=== PATIENT | male | born 1940 | race Caucasian/White ===

== ENCOUNTER 2019-03-31 09:23 | Inpatient (IN) ==
--- NOTE | 2019-03-31 09:55 | XRay Report ---
XR chest 1V portable CLINICAL HISTORY: 79 years-old Male presenting with weakness. TECHNIQUE: Portable upright AP view of the chest was obtained. COMPARISON: 07/06/2018. FINDINGS: Atherosclerosis of the aortic arch. Cardiac silhouette normal in size. No focal opacity. No large eff usion or pneumothorax. Degenerative changes of the thoracic spine. Upper abdomen normal. IMPRESSION: 1. No acute cardiopulmonary disease. Electronically signed by: Naresh Bourne M.D. 03/31/2019 9:54 AM
[2019-03-31] MEDS ORDERED: LACTULOSE SYRUP 20 GM/30 ML UDC PO STA (09:58)
[2019-03-31 10:08] LABS: Basophils # (auto) 0.03 K/uL (0-0.2); Basophils % (auto) 0.6 %; Eosinophils # (auto) 0.13 K/uL (0-0.5); Eosinophils % (auto) 2.5 %; Hemoglobin 12.1 g/dL (14.0-18.0); Immature Granulocytes # (auto) 0.05 K/uL (0.00-0.02); Lymphocytes # (auto) 1.04 K/uL (1.2-3.4); Mean Corpuscular Hgb Conc 34.6 g/dL (32-36); Mean Corpuscular Volume 88.6 fL (80-100); Mean Platelet Volume 8.7 fL (7.4-10.4); Monocytes # (auto) 0.58 K/uL (0.11-0.59); Monocytes % (auto) 11.2 %; Neutrophils # (auto) 3.37 K/uL (1.4-6.5); Neutrophils % (auto) 64.7 %; Platelet Count 164 K/uL (130-400); RDW Coefficient of Variation 15.3 % (11.5-14.5); RDW Standard Deviation 49.5 fL (36.4-46.3); Red Blood Count 3.95 M/uL (4.7-6.1)
[2019-03-31 10:22] LABS: INR 1.1 (0.9-1.1); Prothrombin Time 11.4 Seconds (9.0-12.0)
[2019-03-31 10:24] LABS: Albumin Level 2.6 gm/dl (3.4-5.0); Aspartate Aminotransferase 47 U/L (15-37); BUN Creatinine Ratio 19.6 (10-20); Blood Urea Nitrogen 29 mg/dl (7-18); Calcium 9.1 mg/dl (8.5-10.1); Carbon Dioxide 19 mmol/L (21-32); Chloride 114 mmol/L (98-107); Est GFR (African American) 51.4; Est GFR (Non-African American) 44.3; Glucose 115 mg/dl (70-99); Magnesium 2.3 mg/dl (1.8-2.4); Potassium 4.6 mmol/L (3.5-5.1); Sodium 143 mmol/L (136-145)
[2019-03-31 10:35] LABS: Alanine Aminotransferase 50 U/L (12-78); Albumin Globulin Ratio 0.7 (0.9-2); Alkaline Phosphatase 87 U/L (45-117); Globulin 3.5 gm/dl (2.5-4.0); Total Protein 6.1 gm/dl (6.4-8.2); Troponin I < 0.015 ng/ml (0-0.045)
--- NOTE | 2019-03-31 10:57 | CT Scan Report ---
HEAD CT NONCONTRAST CT DOSE: 537.48 mGy.cm HISTORY: confusion TECHNIQUE: Multiaxial CT images of the head were performed without the use of intravenous contrast. A utomated exposure control was utilized for this study. A dose lowering technique was utilized adheri ng to the principles of ALARA. Comparison: None. Findings: Opacified left ethmoid air cells. No fluid levels within the paranasal sinuses. The mastoid air cells are clear. The calvarium and skull base are intact. There is no mass, hematoma, midline sh ift, acute infarct. White matter hypodensity is nonspecific but suggestive of microvascular ischemic change. The ventricles and sulci demonstrate mild age-related involutional changes. Impression: No acute intracranial abnormality. Atrophy and microvascular ischemic changes. Electronically signed by: Nacho Goss M.D. 03/31/2019 10:55 AM
--- NOTE | 2019-03-31 12:27 | Ultrasound Report ---
US duplex portal hepatic veins CLINICAL HISTORY: eval TIPS. Ascites. Cirrhosis. COMPARISON STUDY: Abdomen and pelvis CT 06/25/2018. FINDINGS: The visualized portal and hepatic veins appear patent. The TIPS is also patent and demonstr ates normal velocities measuring up to 141 cm/s. The IVC appears patent. Moderate ascites. IMPRESSION: The portal veins, hepatic veins, and TIPS appear patent. Electronically signed by: Nacho Goss M.D. 03/31/2019 12:26 PM
--- NOTE | 2019-03-31 12:28 | Ultrasound Report ---
US abdomen ltd ascites CLINICAL HISTORY: h/o cirrhosis. Abdominal distention. COMPARISON STUDY: Paracentesis ultrasound 03/07/2019. FINDINGS: Moderate ascites most pronounced within the right lower quadrant. This demonstrates a few i nternal echoes, unchanged. This appears of slightly improved compared to the prior study on 03/07/2019 . IMPRESSION: Moderate ascites. Electronically signed by: Nacho Goss M.D. 03/31/2019 12:27 PM
--- NOTE | 2019-03-31 13:33 | History & Physical Report ---
Date of Service March 31, 2019 Assessment & Plan (1) Confusion: (2) Hepatic encephalopathy: Pt presented to ER for increased confusion since yesterday. On lactulose daily for cirrhosis. Recent TIPS procedure. Reports was having constipation. In ER afebrile, P: 77, R: 20, BP: 124/50, 100% on RA. No leukocytosis, ammonia: 65, no significant changes in LFTs In ER given lactulose CT HEAD: no acute changes -obtain UA, urine culture, blood cultures -neuro checks -increase lactulose to TID to have 2-3 loose stools daily -add rifaximin -GI consult -monitor cbc, cmp (3) Cirrhosis: (4) Ascites: H/O TIPS procedure on 03/16/19 INR: 1.1, ammonia: 65, no significant changes in LFTs US Abd: moderate ascites US Portal vein:The portal veins, hepatic veins, and TIPS appear patent. -continue lasix, spironolactone -lactulose increased to TID, rifaximin added -GI consult (5) Paroxysmal A-fib: Current sinus rhythm Has been off apixaban, pt was unsure when he was to resume it (6) Diabetes mellitus, type II: A1c: 5.9 on 01/2019 -Hold metformin -NovoLog sliding scale per protocol (7) HTN (hypertension): Stable -Continue Lasix, spironolactone (8) Sleep apnea: -Not on CPAP (9) GERD (gastroesophageal reflux disease): -Continue PPI, H2 clau (10) CKD (chronic kidney disease), stage III: Cr: 1.49. Baseline Cr: 1.2 -Monitor renal functions -Avoid nephrotoxic agents and possible DVT Prophylaxis -SCDs Full Code as per discussion with pt, pt's and pt's daughter, however would not prolonged on life support if poor prognosis Follows with Dr Das for routine care Pt was seen with Dr Diaz. 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 Patient presents with granddaughter and she provides most of history secondary to patient's confusion. Reports yesterday noticed patient with increased confusion, inappropriate answers to questions and was having delayed responses. Granddaughter reports patient had significant abdominal distention prior to TIPS procedure on 03/16/2019 at [facility]. Patient denies noting any increased abdominal distention over the past couple days. Denies abdominal pain. Reports patient had BM this morning otherwise had been constipated. Unsure if patient has been eating and drinking well. Patient's granddaughter reports she does not believe patient has had much of an appetite. Patient lives at home with who just recently returned from rehab facility. It is believed that patient had his morning medicines today. Patient followed up with GI on 03/23/2019 and Lasix was decreased to 20 mg daily, spironolactone to 50 mg daily and lactulose to 30 g daily. Patient was previously on Eliquis, patient has not been taking as was on hold and unsure how long he was to hold the medication. Patient started radiation last week for squamous cell carcinoma to the neck. Denies fever/chills, diaphoresis, N/V, TOLENTINO, dizziness, syncope, vision changes, neck pain, CP, SOB, orthopnea, palpitations, cough, sore throat, choking, otalgia, rhinorrhea, paresthesias, extremity edema, extremity weakness, rashes, urinary symptoms, hematuria, melena, hematochezia. History EGD 03/2018 no varices Allergies Allergy/AdvReac Type Severity Reaction Status Date / Time No Known Allergies Allergy Verified 03/31/19 10:17 Home Medications Home Medications Medication Instructions Recorded Confirmed Type apixaban [Eliquis] 5 mg PO BID 12/21/18 03/31/19 History metformin 500 mg PO DAILY 12/21/18 03/31/19 History [id number] acid-lutein [Centrum 1 tab PO DAILY 12/21/18 03/31/19 History Silver] omeprazole magnesium [Prilosec OTC] 20 mg PO BID 12/21/18 03/31/19 History ranitidine HCl 150 mg PO BID PRN 12/21/18 03/31/19 History spironolactone 50 mg PO QAM 12/21/18 03/31/19 History tamsulosin [Flomax] 0.4 mg PO QAM 12/21/18 03/31/19 History fluticasone propionate [Flonase 1 spray INTRANASAL BID 01/07/19 03/31/19 History Allergy Relief] loratadine 10 mg PO DAILY PRN 01/07/19 03/31/19 History sildenafil [Viagra] 100 mg PO DAILY PRN 01/07/19 03/31/19 History polyethylene glycol 3350 [Miralax] 17 g PO BID 01/27/19 03/31/19 History artificial tears (hypromellose) 1 drops OP QID PRN 02/17/19 03/31/19 History 0.3 % eye gel cholecalciferol (vitamin D3) 2,000 1,000 units PO DAILY tab 02/17/19 03/31/19 History unit tablet furosemide 20 mg tablet 20 mg PO DAILY tab 02/17/19 03/31/19 History ketoconazole 2 % topical cream 1 appln TOP DAILY 02/17/19 03/31/19 History sodium chloride 0.65 % nasal spray 2 sprays INTNAS QID PRN 02/17/19 03/31/19 History aerosol lactulose 30 g PO DAILY 03/31/19 03/31/19 History Past Med/Surg History Medical History Paroxysmal A-fib (Chronic) Sleep apnea (Chronic) NO DEVICE USED Depression (Chronic) History of abdominal paracentesis (Resolved) 02/08/19, 11/2018 Cirrhosis (Chronic) Ascites (Chronic) 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 Elevated LFTs suspected to be from DILI vs AIH. LFTs normalized now so immunosuppression use was deferred. 4L fluid drained 12/15. Abdomen noticeably distended at PAT appt on 12/31/18. Diabetes mellitus, type II (Chronic) HTN (hypertension) (Chronic) No current meds - currently controlled HLD (hyperlipidemia) (Chronic) PVCs (premature ventricular contractions) (Chronic) BPH (benign prostatic hyperplasia) (Chronic) GERD (gastroesophageal reflux disease) (Chronic) Spontaneous bacterial peritonitis (Resolved) Jun 2018. Pt was admitted for a fib RVR and ascites, fluid drawn from abdomen showed SBP. Treated with ABX and discharged. Following now with Meaghan BORJA ([facility]) and Dr. Monreal (Hepatology). Surgical History History of eye surgery (Chronic) 2008 - TEAR DUCT OPENED UP History of adenoidectomy (Chronic) 01/11/19 History of cataract surgery (Chronic) RT/LEFT History of tonsillectomy (Chronic) 01/11/19 History of tooth extraction (Chronic) 01/11/19 History of colonoscopy (Chronic) 01/30/16 History of esophagogastroduodenoscopy (EGD) (Chronic) 11/07/2010, 06/23/18 - with endoscopic US History of liver biopsy (Chronic) 05/2018 History of laryngoscopy (Chronic) 01/11/19 - with biopsies + right modified radical cervical lymphadenectomy History of ERCP (Chronic) 05/12/18 - stent removed History of intraocular lens implant (Chronic) 2008 - Bilateral History of hernia repair (Chronic) 04/02/18 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 Yan 2, grade 1 view. 8.0 ETT. Family History Mother , Passed age 49 from Leukemia No problems noted. Sister , Passed age 6 months of pneumonia No problems noted. Brother , Passed in late 50's of MS No problems noted. Sister , Passed in 60's of diabetic complications No problems noted. Sister No problems noted. Daughter Breast cancer, Onset Age: 40 Stage III - Currently doing well Brother No problems noted. Brother No problems noted. 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 Other Information That Helps Us Care for You: No Feels Safe at Home: Yes Safety Concerns: Feels Safe At This Time Smoking Status: Former smoker Tobacco Type: smokeless tobacco packs per day: 0.5 Do You Dip or Chew Tobacco: Yes Second Hand Exposure: No Tobacco Cessation Education Requested by Patient: No Hx Alcohol Use: No Hx Substance Use: No caffeine: Yes (3 cups of coffee/week with tea inbetween ) during the past year weight has: decreased > 10 lbs Review of Systems Review of Systems: All systems reviewed & are unremarkable except as noted in HPI & below Physical Exam Physical Exam: General: no distress, thin, chronic ill appearing Head: normocephalic, atraumatic Eyes: PERRL, EOM's intact, conjunctiva non-injected, anicteric ENT: normal inspection external ears, nose, mucous membranes mildly dry Neck: supple, trachea midline Lungs: clear, no respiratory distress, no wheezing/rhonchi/rales CV: RRR, no murmur, no pretibial edema Abd: normal BS, soft, +umbilical hernia that is non-tender, non-tender Ext: no cyanosis, no calf tenderness Neuro: Alert, oriented to person, place, no focal deficits noted, normal affect Skin: warm, dry Results & Data Vital Signs (Past 12 Hours) Vital Signs Temp Pulse Pulse Resp BP BP Pulse Ox 03/31/19 11:10 78 18 111/69 97 03/31/19 09:26 36.7 C 77 20 124/50 L 100 Laboratory Results Short CBC 03/31/19 Range/Units 09:49 WBC 5.20 (4.8-10.8) K/uL Hgb 12.1 L (14.0-18.0) g/dL Hct 35.0 L (42-52) % Plt Count 164 (130-400) K/uL BMP 03/31/19 09:49 Sodium 143 Potassium 4.6 Chloride 114 H Carbon Dioxide 19 L BUN 29 H Creatinine 1.49 H Glucose 115 H Calcium 9.1 Cardiac Enzymes 03/31/19 Range/Units 09:49 Troponin I < 0.015 (0-0.045) ng/ml Liver Function 03/31/19 Range/Units 09:49 Total Bilirubin 1.0 (0.2-1) mg/dl AST 47 H (15-37) U/L ALT 50 (12-78) U/L Alkaline Phosphatase 87 (45-117) U/L Albumin 2.6 L (3.4-5.0) gm/dl Diagnostic Findings CXR: IMPRESSION: 1. No acute cardiopulmonary disease. CT HEAD: Impression: No acute intracranial abnormality. Atrophy and microvascular ischemic changes. ABD U/S: IMPRESSION: Moderate ascites. PORTAL VEIN US: IMPRESSION: The portal veins, hepatic veins, and TIPS appear patent. Supervising Physician Co-Signing Physician Notes Patient is a 73-year-old male with history of cirrhosis status post TIPS in March 2019, metastatic squamous cell carcinoma of neck, paroxysmal A. fib and other medical problems presents with history of confusion. Most of the history is obtained from patient's granddaughter. Patient is a poor historian. Patient's lactulose was decreased to [address] head showed no acute findings. Chest x-ray was not suggestive of any acute infection. Portable ultrasound showed patency of the portal veins, hepatic veins and TIPS. Abdominal ultrasound showed moderate ascites. Patient denies any abdominal pain. Labs showed elevated ammonia levels at 65, mild metabolic acidosis. Normal TSH. On exam patient is chronically ill-appearing, normocephalic atraumatic,+ hearing aids, lungs are clear to auscultation, S1-S2, no murmur, abdomen distended, n ontender,+ umbilical hernia, soft, bowel sounds present. Grossly no focal deficits, 1-2+ bilateral lower extremity edema. Patient is admitted for management of hepatic encephalopathy, ascites. Patient's lactulose is increased to TID, added rifaximin. GI consulted for further input. MiraLAX as needed noted. Blood, urine cultures were obtained to rule out infection. Started on low-salt diet. Further management based on GI recommendations. I personally reviewed the record. Patient is interviewed and examined at bedside. Patient's care is coordinated with Jane Jara PA-C. Please refer to the documentation above for details of patient's presentation and for discussion of other issues.
--- NOTE | 2019-03-31 13:42 | Gastrointestinal Consultation ---
Date of Consultation March 31, 2019 Assessment & Plan (1) Confusion: 79 year old male with history of cirrhosis, large volume ascites poorly controlled w/ diuresis secondary to dose tolerability who is now s/p TIPS w/ marked improvement of ascites. He was started on lactulose in addition to mi ralax as prevention of encephalopathy following TIPS. Granddaughter notes compliance with lactulose but he had d/c miralax and had not moved his bowels in a few days. Over the past 48 hours family noted confusion, slurred speech and that he was unsteady on his feet. Altered Mental Status w/ elevated ammonia level s/p TIPS - CT Head negative - Rule out infection - Chest XR - Urine culture - Blood culture - Lactulose 30G 2-3 times daily titrated to 2-3 stools daily - Miralax 1 capful 1-2 times daily in addition if needed Cirrhosis Management - Continue current dosing of Lasix/Aldactone, hopefully these can be D/C in the near future - Low sodium diet - Less than 2G tylenol - No NSAIDs - MELD labs, HCC and TIPS evaluation every 6 months per outpatient provider Thank you for allowing us to participate in the care of this patient. Please call with any acute changes, questions or concerns. Please see addendum below with additional recommendation from my supervising physician. Present on Admission?: Yes Supervising Physician Co-Signing Physician Notes Late entry: I have seen and examined the patient with CHRISTOFER Miramontes whose note reflects our findings and plan. History of Present Illness Reason for Consultation: confusion, elevated ammonia Requesting Physician: Jane Jara PA-C Attending Physician: Jane Jara PA-C History of Present Illness 79 year old male with history of R neck SCC, T2DM, dyslipidemia, HTN, afib, cirrhosis who presented through the ED w/ granddaughter for evaluation of confusion. Pt was seen and evaluated, chart reviewed. Granddaughter at bedside who aids in history. Notes intermittent confusion since TIPS procedure about one month ago. Is to be on laxative therapy in addition to lactulose. She notes compliance with lactulose but suggests over the past few days he had stopped additional laxative therapy. No BM. About 48 hours ago they noted confusion, slurring of speech and dizziness which persistent despite small BM this AM. Isiah es any change in appetite. No nausea, vomiting. Denies any prior black/bloody stools. In the ED, he is afebrile without leukocytosis w/ stable H&H and PLT count. Kidney and liver function stable from OP labs. Ammonia 65. He is extremely hard of hearing, but is awake and oriented to person and location. He is not oriented to time. Diagnosis: cirrhosis Decompensations Ascites: s/p TIPS 03/16/19 on Lasix 20, aldactone 50 mg HE: present s/p TIPS on lactulose, miralax Varices: none Screening Immunization: Hep A/B immune HCC: UTD TIPS: UTD Varices: S/P TIPS will defer to primary GI Hepatic Duplex: The portal veins, hepatic veins, and TIPS appear patent. ABD US: Moderate ascites CT Head: No acute intracranial abnormality. Atrophy and microvascular ischemic changes. Chest XR: No acute cardiopulmonary disease Allergies Allergy/AdvReac Type Severity Reaction Status Date / Time No Known Allergies Allergy Verified 03/31/19 10:17 Home Medications Home Medications Medication Instructions Recorded Confirmed Type apixaban [Eliquis] 5 mg PO BID 12/21/18 03/31/19 History metformin 500 mg PO DAILY 12/21/18 03/31/19 History hg-bss-gayiz acid-lutein [Centrum 1 tab PO DAILY 12/21/18 03/31/19 History Silver] omeprazole magnesium [Prilosec OTC] 20 mg PO BID 12/21/18 03/31/19 History ranitidine HCl 150 mg PO BID PRN 12/21/18 03/31/19 History spironolactone 50 mg PO QAM 12/21/18 03/31/19 History tamsulosin [Flomax] 0.4 mg PO QAM 12/21/18 03/31/19 History fluticasone propionate [Flonase 1 spray INTRANASAL BID 01/07/19 03/31/19 History Allergy Relief] loratadine 10 mg PO DAILY PRN 01/07/19 03/31/19 History sildenafil [Viagra] 100 mg PO DAILY PRN 01/07/19 03/31/19 History polyethylene glycol 3350 [Miralax] 17 g PO BID 01/27/19 03/31/19 History artificial tears (hypromellose) 1 drops OP QID PRN 02/17/19 03/31/19 History 0.3 % eye gel cholecalciferol (vitamin D3) 2,000 1,000 units PO DAILY tab 02/17/19 03/31/19 History unit tablet furosemide 20 mg tablet 20 mg PO DAILY tab 02/17/19 03/31/19 History ketoconazole 2 % topical cream 1 appln TOP DAILY 02/17/19 03/31/19 History sodium chloride 0.65 % nasal spray 2 sprays INTNAS QID PRN 02/17/19 03/31/19 History aerosol lactulose 30 g PO DAILY 03/31/19 03/31/19 History Patient History Medical History Paroxysmal A-fib (Chronic) Sleep apnea (Chronic) NO DEVICE USED Depression (Chronic) History of abdominal paracentesis (Resolved) 02/08/19, 11/2018 Cirrhosis (Chronic) Ascites (Chronic) 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 Elevated LFTs suspected to be from DILI vs AIH. LFTs normalized now so immunosuppression use was deferred. 4L fluid drained 12/15. Abdomen noticeably distended at PAT appt on 12/31/18. Diabetes mellitus, type II (Chronic) HTN (hypertension) (Chronic) No current meds - currently controlled HLD (hyperlipidemia) (Chronic) PVCs (premature ventricular contractions) (Chronic) BPH (benign prostatic hyperplasia) (Chronic) GERD (gastroesophageal reflux disease) (Chronic) Spontaneous bacterial peritonitis (Resolved) Jun 2018. Pt was admitted for a fib RVR and ascites, fluid drawn from abdomen showed SBP. Treated with ABX and discharged. Following now with Meaghan BORJA ([facility]/Lizzette Mitchell) and Dr. Monreal (Hepatology). Surgical History History of eye surgery (Chronic) 2008 - TEAR DUCT OPENED UP History of adenoidectomy (Chronic) 01/11/19 History of cataract surgery (Chronic) RT/LEFT History of tonsillectomy (Chronic) 01/11/19 History of tooth extraction (Chronic) 01/11/19 History of colonoscopy (Chronic) 01/30/16 History of esophagogastroduodenoscopy (EGD) (Chronic) 11/07/2010, 06/23/18 - with endoscopic US History of liver biopsy (Chronic) 05/2018 History of laryngoscopy (Chronic) 01/11/19 - with biopsies + right modified radical cervical lymphadenectomy History of ERCP (Chronic) 05/12/18 - stent removed History of intraocular lens implant (Chronic) 2008 - Bilateral History of hernia repair (Chronic) 04/02/18 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 Yan 2, grade 1 view. 8.0 ETT. Family History Mother , Passed age 49 from Leukemia No problems noted. Sister , Passed age 6 months of pneumonia No problems noted. Brother , Passed in late 50's of CA No problems noted. Sister , Passed in 60's of diabetic complications No problems noted. Sister No problems noted. Daughter Breast cancer, Onset Age: 40 Stage III - Currently doing well Brother No problems noted. Brother No problems noted. Social History Preferred Language: Yi Communication Ability: confusion Communication Ability Comment: confusion Visual Impairment: No Limitations Hearing Ability: Use of Hearing Aid Counter Weigher Required: No Beliefs That Will Affect Care: None marital status: Current Living Situation: Spouse current occupational status: retired current occupation: Retired [employer] Other Information That Helps Us Care for You: No Feels Safe at Home: Yes Safety Concerns: Feels Safe At This Time Smoking Status: Former smoker Tobacco Type: smokeless tobacco packs per day: 0.5 Do You Dip or Chew Tobacco: Yes Second Hand Exposure: No Tobacco Cessation Education Requested by Patient: No Hx Alcohol Use: No Hx Substance Use: No caffeine: Yes (3 cups of coffee/week with tea inbetween ) during the past year weight has: decreased > 10 lbs Review of Systems Review of Systems: Limited ROS as pt is extremely hard of hearing. Constitutional: no fever and no chills Respiratory: no cough and no dyspnea Cardiovascular: no chest pain and no dyspnea on exertion Gastrointestinal: + constipation; no abdominal pain, no coffee ground emesis, no hematemesis, no blood in stools and no melena Physical Exam Constitutional: + ill appearing (chronically ill); no acute distress Neck: trachea midline Respiratory: normal respiratory effort Auscultation: + diminished lung sounds Cardiovascular: Rate/Rhythm: regular rate and regular rhythm Gastrointestinal (Abdomen): Inspection/Auscultation: + abdomen distended (mild abd distention) and normal bowel sounds Percussion/Palpation: abdomen soft; abdomen nontender, no guarding and abdomen not rigid Skin: no rashes, warm and dry no jaundice Psychiatric: Orientation: alert Results & Data Vital Signs (Past 12 Hours) Vital Signs Temp Pulse Pulse Resp BP BP Pulse Ox 03/31/19 11:10 78 18 111/69 97 03/31/19 09:26 36.7 C 77 20 124/50 L 100 Laboratory Results 03/31/19 03/31/19 03/31/19 Range/Units 09:49 09:49 09:49 WBC (4.8-10.8) K/uL RBC (4.7-6.1) M/uL Hgb (14.0-18.0) g/dL Hct (42-52) % MCV (80-100) fL MCH (25-34) pg MCHC (32-36) g/dL RDW Std Deviation (36.4-46.3) fL RDW Coeff of Scott (11.5-14.5) % Plt Count (130-400) K/uL MPV (7.4-10.4) fL Immature Gran % (Auto) % Neut % (Auto) % Lymph % (Auto) % Saunders % (Auto) % Eos % (Auto) % Baso % (Auto) % Immature Gran # (Auto) (0.00-0.02) K/uL Neut # (Auto) (1.4-6.5) K/uL Lymph # (Auto) (1.2-3.4) K/uL Saunders # (Auto) (0.11-0.59) K/uL Eos # (Auto) (0-0.5) K/uL Baso # (Auto) (0-0.2) K/uL PT 11.4 (9.0-12.0) Seconds INR 1.1 (0.9-1.1) Sodium 143 (136-145) mmol/L Potassium 4.6 (3.5-5.1) mmol/L Chloride 114 H (98-107) mmol/L Carbon Dioxide 19 L (21-32) mmol/L Anion Gap 10.0 (3-11) BUN 29 H (7-18) mg/dl Creatinine 1.49 H (0.6-1.4) mg/dl Est Cr Clr Drug Dosing Not Reportable Est GFR ( Amer) 51.4 Est GFR (Non-Af Amer) 44.3 BUN/Creatinine Ratio 19.6 (10-20) Glucose 115 H (70-99) mg/dl Calcium 9.1 (8.5-10.1) mg/dl Magnesium 2.3 (1.8-2.4) mg/dl Total Bilirubin 1.0 (0.2-1) mg/dl AST 47 H (15-37) U/L ALT 50 (12-78) U/L Alkaline Phosphatase 87 (45-117) U/L Ammonia 65.1 H (11-32) umol/L Troponin I < 0.015 (0-0.045) ng/ml Total Protein 6.1 L (6.4-8.2) gm/dl Albumin 2.6 L (3.4-5.0) gm/dl Globulin 3.5 (2.5-4.0) gm/dl Albumin/Globulin Ratio 0.7 L (0.9-2) TSH 2.310 (0.300-4.500) uIu/ml 03/31/19 Range/Units 09:49 WBC 5.20 (4.8-10.8) K/uL RBC 3.95 L (4.7-6.1) M/uL Hgb 12.1 L (14.0-18.0) g/dL Hct 35.0 L (42-52) % MCV 88.6 (80-100) fL MCH 30.6 (25-34) pg MCHC 34.6 (32-36) g/dL RDW Std Deviation 49.5 H (36.4-46.3) fL RDW Coeff of Scott 15.3 H (11.5-14.5) % Plt Count 164 (130-400) K/uL MPV 8.7 (7.4-10.4) fL Immature Gran % (Auto) 1.0 % Neut % (Auto) 64.7 % Lymph % (Auto) 20.0 % Saunders % (Auto) 11.2 % Eos % (Auto) 2.5 % Baso % (Auto) 0.6 % Immature Gran # (Auto) 0.05 H (0.00-0.02) K/uL Neut # (Auto) 3.37 (1.4-6.5) K/uL Lymph # (Auto) 1.04 L (1.2-3.4) K/uL Saunders # (Auto) 0.58 (0.11-0.59) K/uL Eos # (Auto) 0.13 (0-0.5) K/uL Baso # (Auto) 0.03 (0-0.2) K/uL PT (9.0-12.0) Seconds INR (0.9-1.1) Sodium (136-145) mmol/L Potassium (3.5-5.1) mmol/L Chloride (98-107) mmol/L Carbon Dioxide (21-32) mmol/L Anion Gap (3-11) BUN (7-18) mg/dl Creatinine (0.6-1.4) mg/dl Est Cr Clr Drug Dosing Est GFR ( Amer) Est GFR (Non-Af Amer) BUN/Creatinine Ratio (10-20) Glucose (70-99) mg/dl Calcium (8.5-10.1) mg/dl Magnesium (1.8-2.4) mg/dl Total Bilirubin (0.2-1) mg/dl AST (15-37) U/L ALT (12-78) U/L Alkaline Phosphatase (45-117) U/L Ammonia (11-32) umol/L Troponin I (0-0.045) ng/ml Total Protein (6.4-8.2) gm/dl Albumin (3.4-5.0) gm/dl Globulin (2.5-4.0) gm/dl Albumin/Globulin Ratio (0.9-2) TSH (0.300-4.500) uIu/ml
[2019-03-31] MEDS ORDERED: GLUCAGON FOR INJ 1 MG VIAL SQ PRN (15:51)
[2019-03-31] MEDS ORDERED: SODIUM CHLORIDE 0.9% 1000ML 1,000 ML IV SCH (15:51)
[2019-03-31] MEDS ORDERED: CARBOHYDRATES FOR HYPOGLYCEMIA PO PRN (15:51)
[2019-03-31] MEDS ORDERED: ARTIFICIAL TEARS OP PRN ×2 (15:51→16:15)
[2019-03-31] MEDS ORDERED: GLUCOSE 40% GEL 15 GM TUBE PO PRN (15:51)
[2019-03-31] MEDS ORDERED: DEXTROSE 50% 50 ML SYRINGE IV PRN (15:51)
[2019-03-31] MEDS ORDERED: SODIUM CHLORIDE 0.65% NA SOLN 45 ML (OCEAN) NAE PRN (15:51)
[2019-03-31] MEDS ORDERED: GLUCOSE 10 TABS/TUBE PO PRN (15:51)
[2019-03-31] MEDS: LACTULOSE SYRUP 30 GM/45 ML UDP PO SCH ×2 (16:47→20:43)
--- NOTE | 2019-03-31 17:00 | Emergency Department Note ---
Entered by Regulo Melchor acting as a scribe for Bruno Swann MD History of Present Illness General Chief complaint: Confusion Stated complaint: INCREASED CONFUSION Time Seen by Provider: 03/31/19 09:33 Source: family History of Present Illness Onset (ago): day(s) (past couple) Location: head (global) Pain Consistency: + other (persistent) Quality: + other (confusion) Associated symptoms: + other (denies pain) Treatments prior to arrival: other (TIPS procedure one month ago) The patient is a 79 year old white male with PMHx of cirrhosis, s/p TIPS procedure, diabetes, HTN, HLD, GERD, A-fib, depression, and metastatic cancer of the right neck who presents to the Emergency Room with persistent confusion for the past couple days. The granddaughter at bedside states that the patient has had a hard time speaking because he is having trouble finding words, and he takes longer to respond. She states that he had the TIPS procedure about one month ago. She reports that he has also been constipated recently, but he had a bowel movement this morning. His dose of lactulose was recently decreased from 3 to 2 tablespoons. She states that he chews tobacco. She notes that the patient has not been complaining of any pain. She states that the patient lives with his , and there are no concerns for her ability to take care of the patient. She reports that the patient has been taking his medications as prescribed. Home Medications Home Medications Medication Instructions Recorded Confirmed Type apixaban [Eliquis] 5 mg PO BID 12/21/18 03/31/19 History metformin 500 mg PO DAILY 12/21/18 03/31/19 History [id number] acid-lutein [Centrum 1 tab PO DAILY 12/21/18 03/31/19 History Silver] omeprazole magnesium [Prilosec OTC] 20 mg PO BID 12/21/18 03/31/19 History ranitidine HCl 150 mg PO BID PRN 12/21/18 03/31/19 History spironolactone 50 mg PO QAM 12/21/18 03/31/19 History tamsulosin [Flomax] 0.4 mg PO QAM 12/21/18 03/31/19 History fluticasone propionate [Flonase 1 spray INTRANASAL BID 01/07/19 03/31/19 History Allergy Relief] loratadine 10 mg PO DAILY PRN 01/07/19 03/31/19 History sildenafil [Viagra] 100 mg PO DAILY PRN 01/07/19 03/31/19 History polyethylene glycol 3350 [Miralax] 17 g PO BID 01/27/19 03/31/19 History artificial tears (hypromellose) 1 drops OP QID PRN 02/17/19 03/31/19 History 0.3 % eye gel cholecalciferol (vitamin D3) 2,000 1,000 units PO DAILY tab 02/17/19 03/31/19 History unit tablet furosemide 20 mg tablet 20 mg PO DAILY tab 02/17/19 03/31/19 History ketoconazole 2 % topical cream 1 appln TOP DAILY 02/17/19 03/31/19 History sodium chloride 0.65 % nasal spray 2 sprays INTNAS QID PRN 02/17/19 03/31/19 History aerosol lactulose 30 g PO DAILY 03/31/19 03/31/19 History Allergies Allergy/AdvReac Type Severity Reaction Status Date / Time No Known Allergies Allergy Verified 03/31/19 10:17 Past Med/Surg History Medical History Diabetes mellitus, type II (Chronic) HTN (hypertension) (Chronic) No current meds - currently controlled HLD (hyperlipidemia) (Chronic) PVCs (premature ventricular contractions) (Chronic) BPH (benign prostatic hyperplasia) (Chronic) GERD (gastroesophageal reflux disease) (Chronic) Spontaneous bacterial peritonitis (Resolved) Jun 2018. Pt was admitted for a fib RVR and ascites, fluid drawn from abdomen showed SBP. Treated with ABX and discharged. Following now with [facility] GI (Tyler/Lizzette Mitchell) and Dr. Monreal (Hepatology). 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 Elevated LFTs suspected to be from DILI vs AIH. LFTs normalized now so immunosuppression use was deferred. 4L fluid drained 12/15. Abdomen noticeably distended at PAT appt on 12/31/18. Atrial fibrillation with RVR Jun 2018. In ER. Converted after IV cardizem bolus and drip. 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 Yan 2, grade 1 view. 8.0 ETT. History of liver biopsy (Resolved) 05/2018 History of ERCP 05/12/18 - stent removed History of hernia repair 04/02/18 History of intraocular lens implant 2008 - Bilateral History of laryngoscopy 01/11/19 - with biopsies + right modified radical cervical lymphadenectomy History of adenoidectomy 01/11/19 History of cataract surgery RT/LEFT History of colonoscopy 01/30/16 History of esophagogastroduodenoscopy (EGD) 11/07/2010, 06/23/18 - with endoscopic US History of eye surgery 2008 - TEAR DUCT OPENED UP History of tonsillectomy 01/11/19 History of tooth extraction 01/11/19 Family History Mother , Passed age 49 from Leukemia No problems noted. Sister , Passed age 6 months of pneumonia No problems noted. Brother , Passed in late 50's of [place] No problems noted. Sister , Passed in 60's of diabetic complications No problems noted. Sister No problems noted. Daughter Breast cancer, Onset Age: 40 Stage III - Currently doing well Brother No problems noted. Brother No problems noted. 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 and A total of 10 systems reviewed and were otherwise negative Physical Exam Vital Signs Vital Signs - 24 hr 03/31/19 09:26 03/31/19 11:10 Temperature 36.7 C Temperature Source Oral Sepsis Recent Fever Within 48 Hours No Sepsis New/Unexplained Change in Mental Status Yes Sepsis Action Taken by Nursing No Action Required Pulse Rate 77 Pulse Rate [Left] 78 Pulse Rhythm Regular Pulse Rhythm [Left] Regular Pulse Strength Normal Pulse Strength [Left] Normal Respiratory Rate 20 18 Respiratory Effort / Characteristics Non-Labored Spontaneous Non-Labored Spontaneous Respiratory Depth Normal Normal Respiratory Pattern Regular Regular Blood Pressure 124/50 L Blood Pressure [Left Arm] 111/69 Blood Pressure Mean 74 Blood Pressure Mean [Left Arm] 83 Blood Pressure Position Sitting Blood Pressure Position [Left Arm] Lying Pulse Oximetry 100 97 Oxygen Delivery Method Room Air Room Air GENERAL: Well appearing, well nourished, NAD, non-toxic. EYE EXAM: Normal conjunctiva. PERRL, no anisocoria and EOM's grossly intact w/o pain. OROPHARYNX: Moist mucus membranes. Edentulous. NECK: Supple, no nuchal rigidity, no adenopathy, non-tender, healing wound to right neck. No signs of meningismus. LUNGS: Clear to auscultation. Normal chest wall mechanics. HEART: NSR, no MRG. ABDOMEN: Abdomen is mildly distended but soft, non-tender, normo-active bowel sounds, reducible umbilical hernia, no rebound or guarding. BACK: No CVA TTP. SKIN: No rashes and no bruising. UPPER EXTREMITIES: Upper extremities are grossly normal. LOWER EXTREMITIES: No pitting edema. No calf pain. NEURO EXAM: Answers questions appropriately, follows commands, cranial nerves II-XII grossly intact with exception of questionable dysarthria, moves all 4 extremities on command w/o issue. Course 0940: The patient was evaluated in room B10. A complete history and physical examination were performed. 1113: I consulted Laina Jara PA-C: [facility] Hospitalist. The patient will be reevaluated for hospitalization. 1124: I consulted Laina. She would like a hepatic vein and ascites ultrasound, which I ordered. Administered Medications Sodium Chloride (Nss 1000ml) 1,000 mls @ 80 mls/hr IV .[id number] EARLENE Stop: 04/01/19 04:20 Last Admin: 03/31/19 16:16 Dose: 80 mls/hr Documented by: [id number] Lactulose (Chronulac) 30 gm PO TID EARLENE Stop: 04/30/19 16:29 Last Admin: 03/31/19 16:47 Dose: 30 gm Documented by: [id number] Discontinued Medications Lactulose (Chronulac) 30 gm PO NOW STA Stop: 03/31/19 09:59 Last Admin: 03/31/19 11:15 Dose: 30 gm Documented by: [id number] Medical Decision Making Medical Records Attestation: I reviewed the patient's medical records. Home Medications Current Medication List: was personally reviewed by me Laboratory Data Attestation: I reviewed the patient's lab results. Result diagrams: 03/31/19 09:49 03/31/19 09:49 Lab Results 03/31/19 03/31/19 03/31/19 Range/Units 09:49 09:49 09:49 WBC 5.20 (4.8-10.8) K/uL RBC 3.95 L (4.7-6.1) M/uL Hgb 12.1 L (14.0-18.0) g/dL Hct 35.0 L (42-52) % MCV 88.6 (80-100) fL MCH 30.6 (25-34) pg MCHC 34.6 (32-36) g/dL RDW Std Deviation 49.5 H (36.4-46.3) fL RDW Coeff of Scott 15.3 H (11.5-14.5) % Plt Count 164 (130-400) K/uL MPV 8.7 (7.4-10.4) fL Immature Gran % (Auto) 1.0 % Neut % (Auto) 64.7 % Lymph % (Auto) 20.0 % [place] % (Auto) 11.2 % Eos % (Auto) 2.5 % Baso % (Auto) 0.6 % Immature Gran # (Auto) 0.05 H (0.00-0.02) K/uL Neut # (Auto) 3.37 (1.4-6.5) K/uL Lymph # (Auto) 1.04 L (1.2-3.4) K/uL [place] # (Auto) 0.58 (0.11-0.59) K/uL Eos # (Auto) 0.13 (0-0.5) K/uL Baso # (Auto) 0.03 (0-0.2) K/uL PT 11.4 (9.0-12.0) Seconds INR 1.1 (0.9-1.1) Sodium 143 (136-145) mmol/L Potassium 4.6 (3.5-5.1) mmol/L Chloride 114 H (98-107) mmol/L Carbon Dioxide 19 L (21-32) mmol/L Anion Gap 10.0 (3-11) BUN 29 H (7-18) mg/dl Creatinine 1.49 H (0.6-1.4) mg/dl Est Cr Clr Drug Dosing Not Reportable Est GFR ( Amer) 51.4 Est GFR (Non-Af Amer) 44.3 BUN/Creatinine Ratio 19.6 (10-20) Glucose 115 H (70-99) mg/dl Calcium 9.1 (8.5-10.1) mg/dl Magnesium 2.3 (1.8-2.4) mg/dl Total Bilirubin 1.0 (0.2-1) mg/dl AST 47 H (15-37) U/L ALT 50 (12-78) U/L Alkaline Phosphatase 87 (45-117) U/L Ammonia (11-32) umol/L Troponin I < 0.015 (0-0.045) ng/ml Total Protein 6.1 L (6.4-8.2) gm/dl Albumin 2.6 L (3.4-5.0) gm/dl Globulin 3.5 (2.5-4.0) gm/dl Albumin/Globulin Ratio 0.7 L (0.9-2) TSH 2.310 (0.300-4.500) uIu/ml 03/31/19 Range/Units 09:49 WBC (4.8-10.8) K/uL RBC (4.7-6.1) M/uL Hgb (14.0-18.0) g/dL Hct (42-52) % MCV (80-100) fL MCH (25-34) pg MCHC (32-36) g/dL RDW Std Deviation (36.4-46.3) fL RDW Coeff of Scott (11.5-14.5) % Plt Count (130-400) K/uL MPV (7.4-10.4) fL Immature Gran % (Auto) % Neut % (Auto) % Lymph % (Auto) % [place] % (Auto) % Eos % (Auto) % Baso % (Auto) % Immature Gran # (Auto) (0.00-0.02) K/uL Neut # (Auto) (1.4-6.5) K/uL Lymph # (Auto) (1.2-3.4) K/uL [place] # (Auto) (0.11-0.59) K/uL Eos # (Auto) (0-0.5) K/uL Baso # (Auto) (0-0.2) K/uL PT (9.0-12.0) Seconds INR (0.9-1.1) Sodium (136-145) mmol/L Potassium (3.5-5.1) mmol/L Chloride (98-107) mmol/L Carbon Dioxide (21-32) mmol/L Anion Gap (3-11) BUN (7-18) mg/dl Creatinine (0.6-1.4) mg/dl Est Cr Clr Drug Dosing Est GFR ( Amer) Est GFR (Non-Af Amer) BUN/Creatinine Ratio (10-20) Glucose (70-99) mg/dl Calcium (8.5-10.1) mg/dl Magnesium (1.8-2.4) mg/dl Total Bilirubin (0.2-1) mg/dl AST (15-37) U/L ALT (12-78) U/L Alkaline Phosphatase (45-117) U/L Ammonia 65.1 H (11-32) umol/L Troponin I (0-0.045) ng/ml Total Protein (6.4-8.2) gm/dl Albumin (3.4-5.0) gm/dl Globulin (2.5-4.0) gm/dl Albumin/Globulin Ratio (0.9-2) TSH (0.300-4.500) uIu/ml Imaging Data Radiologist's Impression: Radiology results as stated below per my review and the radiologist's interpr etation: US abdomen ltd ascites CLINICAL HISTORY: h/o cirrhosis. Abdominal distention. COMPARISON STUDY: Paracentesis ultrasound 03/07/2019. FINDINGS: Moderate ascites most pronounced within the right lower quadrant. This demonstrates a few internal echoes, unchanged. This appears of slightly improved compared to the prior study on 03/07/2019. IMPRESSION: Moderate ascites. Electronically signed by: Nacho Goss M.D. 03/31/2019 12:27 PM XR chest 1V portable CLINICAL HISTORY: 79 years-old Male presenting with weakness. TECHNIQUE: Portable upright AP view of the chest was obtained. COMPARISON: 07/06/2018. FINDINGS: Atherosclerosis of the aortic arch. Cardiac silhouette normal in size. No focal opacity. No large effusion or pneumothorax. Degenerative changes of the thoracic spine. Upper abdomen normal. IMPRESSION: 1. No acute cardiopulmonary disease. Electronically signed by: Naresh Bourne M.D. 03/31/2019 9:[address] NON[address]AST CT DOSE: 537.48 mGy.cm HISTORY: confusion TECHNIQUE: Multiaxial CT images of the head were performed without the use of intravenous contrast. Automated exposure control was utilized for this study. A dose lowering technique was utilized adhering to the principles of ALARA. Comparison: None. Findings: Opacified left ethmoid air cells. No fluid levels within the paranasal sinuses. The mastoid air cells are clear. The calvarium and skull base are intact. There is no mass, hematoma, midline shift, acute infarct. White matter hypodensity is nonspecific but suggestive of microvascular ischemic change. The ventricles and sulci demonstrate mild age-related involutional changes. Impression: No acute intracranial abnormality. Atrophy and microvascular ischemic changes. Electronically signed by: Nacho Goss M.D. 03/31/2019 10:55 AM US duplex portal hepatic veins CLINICAL HISTORY: eval TIPS. Ascites. Cirrhosis. COMPARISON STUDY: Abdomen and pelvis CT 06/25/2018. FINDINGS: The visualized portal and hepatic veins appear patent. The TIPS is also patent and demonstrates normal velocities measuring up to 141 cm/s. The IVC appears patent. Moderate ascites. IMPRESSION: The portal veins, hepatic veins, and TIPS appear patent. Electronically signed by: Nacho Goss M.D. 03/31/2019 12:26 PM ECG Data Attestation: I personally reviewed and interpreted this ECG as follows: Indication: other (confusion) Rate (beats per minute): 73 Rhythm: normal sinus Findings: + other (normal intervals, normal axis, no obvious ischemic changes) Blood Pressure Blood Pressure Findings: Normal blood pressure Blood Pressure Disposition: did not require urgent referral MDM Narrative Ancillary records reviewed/Prior records reviewed. Triage nursing summary reviewed. The patient is a 79 year old white male with PMHx of cirrhosis, s/p TIPS procedure, diabetes, HTN, HLD, GERD, A-fib, depression, and metastatic cancer of the right neck who presents to the Emergency Room with persistent confusion for the past couple days. Differential diagnosis includes: metabolic, infection, hypoglycemia, electrolyte abnormalities, cardiac sources, intracerebral event, toxicologic, neurologic, as well as others were entertained. Patient was seen and evaluated the bedside. The patient has a known history of cirrhosis of liver status post TIPS procedure completed at [facility] in [place] approximately 1 month prior. Per the granddaughter at the bedside the patient does live with his . Granddaughter believes that there are no acute issues with caring for the patient at home. The patient is alert and oriented. He is able to follow commands. The granddaughter further specifies the confusion is saying he is slow to respond and has slurring his words. Patient did have blood work completed was given lactulose did have an ammonia checked. Patient CT negative. The patient does have some chronic kidney disease but creatinine is improved compared to prior. The patient does have an elevated ammonia. Lactulose has been ordered and given. Given this concern I did speak the on-call hospitalist who agreed to further evaluate treat the patient. The patient did have a hepatic ultrasound and ascites ultrasound order ed as asked by the hospitalist service. Impression & Plan Hyperammonemia, Confusion, Dysarthria Discharge Plan Visit Data *Final* Discharge Date/Time: 03/31/19 14:50 Chief Complaint: Confusion Stated Complaint: INCREASED CONFUSION ED Provider: Bruno Swann Discharge Problem: Hyperammonemia, Confusion, Dysarthria Patient Disposition: Admitted As Inpatient Discharge Instructions Interventions: ED Discharge Assessment Last Done: 03/31/19 14:50 The mary's documentation has been prepared under my direction and personally reviewed by me in its entirety. I confirm that the note above accurately refl ects all work, treatment, procedures, and medical decision making performed by me.
[2019-03-31] MEDS: INSULIN ASPART 100 UNITS/ML 3 ML PEN SC SCH ×2 (18:19→20:40)
[2019-03-31] MEDS ORDERED: POLYETHYLENE (MIRALAX) 17 GM PACK PO PRN (19:59)
[2019-03-31] MEDS: FLUTICASONE PROPIONATE NA SPR 16 GM BTL NAE SCH (20:43)
[2019-03-31] MEDS: PANTOprazole 40 MG TAB PO SCH (20:43)
[2019-03-31] MEDS: RIFAXIMIN 550 MG TABLET PO SCH (20:44)
[2019-04-01 06:45] LABS: Hematocrit (blood only) 30.4 % (42-52); Hemoglobin 10.3 g/dL (14.0-18.0); Mean Corpuscular Hgb Conc 33.9 g/dL (32-36); Mean Corpuscular Volume 89.1 fL (80-100); Platelet Count 140 K/uL (130-400); RDW Coefficient of Variation 15.4 % (11.5-14.5); RDW Standard Deviation 49.9 fL (36.4-46.3); Red Blood Count 3.41 M/uL (4.7-6.1); White Blood Count 4.61 K/uL (4.8-10.8)
[2019-04-01 07:23] LABS: Albumin Globulin Ratio 0.8 (0.9-2); Albumin Level 2.1 gm/dl (3.4-5.0); BUN Creatinine Ratio 18.8 (10-20); Bilirubin Direct 0.2 mg/dl (0-0.2); Bilirubin,Total 0.8 mg/dl (0.2-1); Est GFR (Non-African American) 64.7; Globulin 2.7 gm/dl (2.5-4.0); Potassium 3.7 mmol/L (3.5-5.1); Total Protein 4.8 gm/dl (6.4-8.2)
--- NOTE | 2019-04-01 08:28 | Gastroenterology Progress Note ---
Date of Service April 01, 2019 Assessment & Plan (1) Confusion: 79 year old male with history of cirrhosis, large volume ascites poorly controlled w/ diuresis secondary to dose tolerability who is now s/p TIPS w/ marked improvement of ascites. He was started on lactulose in addition to miralax as prevention of encephalopathy following TIPS. Granddaughter notes compliance with lactulose but he had d/c miralax and had not moved his bowels in a few days. Over the past 48 hours family noted confusion, slurred speech and that he was unsteady on his feet. Cultures pending, has had four stools since admission. More awak this AM, oriented to person, place but not time. Offers no complaints. Altered Mental Status w/ elevated ammonia level s/p TIPS - CT Head negative - Rule out infection - Chest XR - Urine culture - Blood culture - Lactulose 30G 2-3 times daily titrated to 2-3 stools daily - Miralax 1 capful 1-2 times daily in addition if needed Cirrhosis Management - Continue current dosing of Lasix/Aldactone, hopefully these can be D/C in the near future - Low sodium diet - Less than 2G tylenol - No NSAIDs - MELD labs, HCC and TIPS evaluation every 6 months per outpatient provider Thank you for allowing us to participate in the care of this patient. Please call with any acute changes, questions or concerns. Please see addendum below with additional recommendation from my supervising physician. Supervising Physician Co-Signing Physician Notes I have seen and examined the patient with CHRISTOFER Miramontes whose note reflects our findings and plan. Subjective Pt was seen and evaluated, chart reviewed. No acute events noted. Is more awake this AM. Upright in bed. Tolerated breakfast. Denies any nausea, vomiting. No abd pain. Has been moving his bowels. Review shows 4 BM since ED admission. No black or bloody stools. No CP, SOB. Diagnosis: cirrhosis Decompensations Ascites: s/p TIPS 03/16/19 on Lasix 20, aldactone 50 mg HE: present s/p TIPS on lactulose, miralax Varices: none Screening Immunization: Hep A/B immune HCC: UTD TIPS: UTD Varices: S/P TIPS will defer to primary GI Cultures: pending Hepatic Duplex: The portal veins, hepatic veins, and TIPS appear patent. ABD US: Moderate ascites CT Head: No acute intracranial abnormality. Atrophy and microvascular ischemic changes. Chest XR: No acute cardiopulmonary disease Review of Systems Constitutional: no fever and no chills Respiratory: no cough and no dyspnea Cardiovascular: no chest pain and no dyspnea on exertion Gastrointestinal: no abdominal pain, no belching, no early satiety, no heartburn, no vomiting, no coffee ground emesis, no hematemesis, no dysphagia, no change in stools, no diarrhea/loose stools, no blood in stools and no melena Physical Exam Constitutional: WD/WN, vitals as above Neck: trachea midline Respiratory: normal respiratory effort, lungs clear to auscultation Cardiovascular: Rate/Rhythm: regular rate and regular rhythm Gastrointestinal (Abdomen): Inspection/Auscultation: normal bowel sounds Percussion/Palpation: abdomen soft; abdomen nontender and no guarding Skin: no rashes, warm and dry Results & Data Vital Signs (Past 12 Hours) Vital Signs Temp Pulse Pulse Resp BP Pulse Ox 04/01/19 07:21 36.3 C L 69 16 96/58 L 98 04/01/19 07:00 70 04/01/19 04:16 37.1 C 72 18 94/51 L 98 04/01/19 00:00 75 03/31/19 23:00 36.9 C 80 18 94/56 L 98 Laboratory Results 04/01/19 04/01/19 04/01/19 Range/Units 07:41 06:32 06:32 WBC 4.61 L (4.8-10.8) K/uL RBC 3.41 L (4.7-6.1) M/uL Hgb 10.3 L (14.0-18.0) g/dL Hct 30.4 L (42-52) % MCV 89.1 (80-100) fL MCH 30.2 (25-34) pg MCHC 33.9 (32-36) g/dL RDW Std Deviation 49.9 H (36.4-46.3) fL RDW Coeff of Scott 15.4 H (11.5-14.5) % Plt Count 140 (130-400) K/uL MPV 9.0 (7.4-10.4) fL Immature Gran % (Auto) % Neut % (Auto) % Lymph % (Auto) % [place] % (Auto) % Eos % (Auto) % Baso % (Auto) % Immature Gran # (Auto) (0.00-0.02) K/uL Neut # (Auto) (1.4-6.5) K/uL Lymph # (Auto) (1.2-3.4) K/uL [place] # (Auto) (0.11-0.59) K/uL Eos # (Auto) (0-0.5) K/uL Baso # (Auto) (0-0.2) K/uL PT (9.0-12.0) Seconds INR (0.9-1.1) Sodium 144 (136-145) mmol/L Potassium 3.7 D (3.5-5.1) mmol/L Chloride 119 H (98-107) mmol/L Carbon Dioxide 17 L (21-32) mmol/L Anion Gap 8.0 (3-11) BUN 20 H (7-18) mg/dl Creatinine 1.09 (0.6-1.4) mg/dl Est Cr Clr Drug Dosing 45.0 Est GFR ( Amer) 75.0 Est GFR (Non-Af Amer) 64.7 BUN/Creatinine Ratio 18.8 (10-20) Glucose 85 (70-99) mg/dl POC Glucose 99 (70-99) Calcium 8.0 L (8.5-10.1) mg/dl Magnesium (1.8-2.4) mg/dl Total Bilirubin 0.8 (0.2-1) mg/dl Direct Bilirubin 0.2 (0-0.2) mg/dl AST 37 (15-37) U/L ALT 39 (12-78) U/L Alkaline Phosphatase 77 (45-117) U/L Ammonia (11-32) umol/L Troponin I (0-0.045) ng/ml Total Protein 4.8 L D (6.4-8.2) gm/dl Albumin 2.1 L (3.4-5.0) gm/dl Globulin 2.7 (2.5-4.0) gm/dl Albumin/Globulin Ratio 0.8 L (0.9-2) TSH (0.300-4.500) uIu/ml 04/01/19 03/31/19 03/31/19 Range/Units 06:32 20:16 17:25 WBC (4.8-10.8) K/uL RBC (4.7-6.1) M/uL Hgb (14.0-18.0) g/dL Hct (42-52) % MCV (80-100) fL MCH (25-34) pg MCHC (32-36) g/dL RDW Std Deviation (36.4-46.3) fL RDW Coeff of Scott (11.5-14.5) % Plt Count (130-400) K/uL MPV (7.4-10.4) fL Immature Gran % (Auto) % Neut % (Auto) % Lymph % (Auto) % [place] % (Auto) % Eos % (Auto) % Baso % (Auto) % Immature Gran # (Auto) (0.00-0.02) K/uL Neut # (Auto) (1.4-6.5) K/uL Lymph # (Auto) (1.2-3.4) K/uL [place] # (Auto) (0.11-0.59) K/uL Eos # (Auto) (0-0.5) K/uL Baso # (Auto) (0-0.2) K/uL PT (9.0-12.0) Seconds INR (0.9-1.1) Sodium (136-145) mmol/L Potassium (3.5-5.1) mmol/L Chloride (98-107) mmol/L Carbon Dioxide (21-32) mmol/L Anion Gap (3-11) BUN (7-18) mg/dl Creatinine (0.6-1.4) mg/dl Est Cr Clr Drug Dosing Est GFR ( Amer) Est GFR (Non-Af Amer) BUN/Creatinine Ratio (10-20) Glucose (70-99) mg/dl POC Glucose 125 H 129 H (70-99) Calcium (8.5-10.1) mg/dl Magnesium (1.8-2.4) mg/dl Total Bilirubin (0.2-1) mg/dl Direct Bilirubin (0-0.2) mg/dl AST (15-37) U/L ALT (12-78) U/L Alkaline Phosphatase (45-117) U/L Ammonia 67.0 H (11-32) umol/L Troponin I (0-0.045) ng/ml Total Protein (6.4-8.2) gm/dl Albumin (3.4-5.0) gm/dl Globulin (2.5-4.0) gm/dl Albumin/Globulin Ratio (0.9-2) TSH (0.300-4.500) uIu/ml 03/31/19 03/31/19 03/31/19 Range/Units 09:49 09:49 09:49 WBC (4.8-10.8) K/uL RBC (4.7-6.1) M/uL Hgb (14.0-18.0) g/dL Hct (42-52) % MCV (80-100) fL MCH (25-34) pg MCHC (32-36) g/dL RDW Std Deviation (36.4-46.3) fL RDW Coeff of Scott (11.5-14.5) % Plt Count (130-400) K/uL MPV (7.4-10.4) fL Immature Gran % (Auto) % Neut % (Auto) % Lymph % (Auto) % [place] % (Auto) % Eos % (Auto) % Baso % (Auto) % Immature Gran # (Auto) (0.00-0.02) K/uL Neut # (Auto) (1.4-6.5) K/uL Lymph # (Auto) (1.2-3.4) K/uL [place] # (Auto) (0.11-0.59) K/uL Eos # (Auto) (0-0.5) K/uL Baso # (Auto) (0-0.2) K/uL PT 11.4 (9.0-12.0) Seconds INR 1.1 (0.9-1.1) Sodium 143 (136-145) mmol/L Potassium 4.6 (3.5-5.1) mmol/L Chloride 114 H (98-107) mmol/L Carbon Dioxide 19 L (21-32) mmol/L Anion Gap 10.0 (3-11) BUN 29 H (7-18) mg/dl Creatinine 1.49 H (0.6-1.4) mg/dl Est Cr Clr Drug Dosing Not Reportable Est GFR ( Amer) 51.4 Est GFR (Non-Af Amer) 44.3 BUN/Creatinine Ratio 19.6 (10-20) Glucose 115 H (70-99) mg/dl POC Glucose (70-99) Calcium 9.1 (8.5-10.1) mg/dl Magnesium 2.3 (1.8-2.4) mg/dl Total Bilirubin 1.0 (0.2-1) mg/dl Direct Bilirubin (0-0.2) mg/dl AST 47 H (15-37) U/L ALT 50 (12-78) U/L Alkaline Phosphatase 87 (45-117) U/L Ammonia 65.1 H (11-32) umol/L Troponin I < 0.015 (0-0.045) ng/ml Total Protein 6.1 L (6.4-8.2) gm/dl Albumin 2.6 L (3.4-5.0) gm/dl Globulin 3.5 (2.5-4.0) gm/dl Albumin/Globulin Ratio 0.7 L (0.9-2) TSH 2.310 (0.300-4.500) uIu/ml 03/31/19 Range/Units 09:49 WBC 5.20 (4.8-10.8) K/uL RBC 3.95 L (4.7-6.1) M/uL Hgb 12.1 L (14.0-18.0) g/dL Hct 35.0 L (42-52) % MCV 88.6 (80-100) fL MCH 30.6 (25-34) pg MCHC 34.6 (32-36) g/dL RDW Std Deviation 49.5 H (36.4-46.3) fL RDW Coeff of Scott 15.3 H (11.5-14.5) % Plt Count 164 (130-400) K/uL MPV 8.7 (7.4-10.4) fL Immature Gran % (Auto) 1.0 % Neut % (Auto) 64.7 % Lymph % (Auto) 20.0 % [place] % (Auto) 11.2 % Eos % (Auto) 2.5 % Baso % (Auto) 0.6 % Immature Gran # (Auto) 0.05 H (0.00-0.02) K/uL Neut # (Auto) 3.37 (1.4-6.5) K/uL Lymph # (Auto) 1.04 L (1.2-3.4) K/uL [place] # (Auto) 0.58 (0.11-0.59) K/uL Eos # (Auto) 0.13 (0-0.5) K/uL Baso # (Auto) 0.03 (0-0.2) K/uL PT (9.0-12.0) Seconds INR (0.9-1.1) Sodium (136-145) mmol/L Potassium (3.5-5.1) mmol/L Chloride (98-107) mmol/L Carbon Dioxide (21-32) mmol/L Anion Gap (3-11) BUN (7-18) mg/dl Creatinine (0.6-1.4) mg/dl Est Cr Clr Drug Dosing Est GFR ( Amer) Est GFR (Non-Af Amer) BUN/Creatinine Ratio (10-20) Glucose (70-99) mg/dl POC Glucose (70-99) Calcium (8.5-10.1) mg/dl Magnesium (1.8-2.4) mg/dl Total Bilirubin (0.2-1) mg/dl Direct Bilirubin (0-0.2) mg/dl AST (15-37) U/L ALT (12-78) U/L Alkaline Phosphatase (45-117) U/L Ammonia (11-32) umol/L Troponin I (0-0.045) ng/ml Total Protein (6.4-8.2) gm/dl Albumin (3.4-5.0) gm/dl Globulin (2.5-4.0) gm/dl Albumin/Globulin Ratio (0.9-2) TSH (0.300-4.500) uIu/ml
[2019-04-01] MEDS: PANTOprazole 40 MG TAB PO SCH ×2 (09:45→21:02)
[2019-04-01] MEDS: RIFAXIMIN 550 MG TABLET PO SCH ×2 (09:45→21:02)
[2019-04-01] MEDS: MULTIVITAMIN TAB PO SCH (09:46)
[2019-04-01] MEDS: SPIRONOLACTONE 25 MG TAB PO SCH (09:46)
[2019-04-01] MEDS: FUROSEMIDE 20 MG TAB PO SCH (09:47)
[2019-04-01] MEDS: LACTULOSE SYRUP 30 GM/45 ML UDP PO SCH ×3 (09:51→21:01)
[2019-04-01] MEDS: FLUTICASONE PROPIONATE NA SPR 16 GM BTL NAE SCH ×2 (09:51→21:02)
[2019-04-01] MEDS: TAMSULOSIN HCL 0.4 MG CAP PO SCH (09:51)
[2019-04-01] MEDS: INSULIN ASPART 100 UNITS/ML 3 ML PEN SC SCH ×4 (09:56→20:51)
--- NOTE | 2019-04-01 16:07 | Hospitalist Progress Note ---
Date of Service April 01, 2019 Assessment & Plan (1) Confusion: (2) Hepatic encephalopathy: per admitting notes: Pt presented to ER for increased confusion since yesterday. On lactulose daily for cirrhosis. Recent TIPS procedure. Reports was having constipation. In ER afebrile, P: 77, R: 20, BP: 124/50, 100% on RA. No leukocytosis, ammonia: 65, no significant changes in LFTs In ER given lactulose CT HEAD: no acute changes urine culture, blood cultures: pending -increased lactulose to TID to have 2-3 loose stools daily -added rifaximin -GI consulted - ammonia still in the 60s but clinically improving, (+) BMs monitor (3) Cirrhosis: (4) Ascites: per admitting notes: H/O TIPS procedure on 03/16/19 INR: 1.1, ammonia: 65, no significant changes in LFTs US Abd: moderate ascites US Portal vein:The portal veins, hepatic veins, and TIPS appear patent. 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 Garcia will resume Tx tomorrow (6) Paroxysmal A-fib: Current sinus rhythm Has been off apixaban- will clarify with patient's family also discuss with GI (7) Diabetes mellitus, type II: A1c: 5.9 on 01/2019 -Hold metformin -NovoLog sliding scale per protocol (8) HTN (hypertension): Stable -Continue Lasix, spironolactone (9) Sleep apnea: -Not on CPAP (10) GERD (gastroesophageal reflux disease): -Continue PPI, H2 clau (11) CKD (chronic kidney disease), stage III: Cr: 1.49. Baseline Cr: 1.2 - crea 1.09 DVT Prophylaxis - heparin SC Full Code as per discussion with pt, pt's and pt's daughter, however would not prolonged on life support if poor prognosis Follows with Dr Das for routine care Disposition pending PT/OT eval Subjective ff up for hepatic encephalopathy seen resting in bed, comfortable oriented x 2 denies abdominal pain, nausea, (+) BMs yesterday denies chest pain, dyspnea, palpitations no other symptoms Review of Systems Review of Systems: All systems reviewed & are unremarkable except as noted in HPI & below Physical Exam Physical Exam: General- oriented x2 , not in distress, speaks in sentences with no effort or accessory muscle use Eyes- anicteric Neck- no JVD Lungs- clear breath sounds bilaterally, no rales/wheezes Heart- normal rate, regular rhythm; no murmurs Abdomen- normal bowel sounds, nondistended, soft, nontender (+) hernia- non tender Extremities- no pretibial edema, no calf tenderness Neuro- alert, oriented x 3; no gross focal neurologic deficits Skin- warm & dry Results & Data Vital Signs (Past 12 Hours) Vital Signs Temp Pulse Pulse Resp BP Pulse Ox 04/01/19 16:03 36.4 C L 80 20 102/65 95 04/01/19 15:00 64 04/01/19 12:04 36.6 C 73 18 97/59 L 98 04/01/19 09:45 68 110/69 04/01/19 07:21 36.3 C L 69 16 96/58 L 98 04/01/19 07:00 70 04/01/19 04:16 37.1 C 72 18 94/51 L 98 Laboratory Results Laboratory Results - last 24 hr 03/31/19 03/31/19 04/01/19 17:25 20:16 06:32 WBC RBC Hgb Hct MCV MCH MCHC RDW Std Deviation RDW Coeff of Scott Plt Count MPV Sodium Potassium Chloride Carbon Dioxide Anion Gap BUN Creatinine Est Cr Clr Drug Dosing Est GFR ( Amer) Est GFR (Non-Af Amer) BUN/Creatinine Ratio Glucose POC Glucose 129 H 125 H Calcium Total Bilirubin Direct Bilirubin AST ALT Alkaline Phosphatase Ammonia 67.0 H Total Protein Albumin Globulin Albumin/Globulin Ratio 04/01/19 04/01/19 04/01/19 06:32 06:32 07:41 WBC 4.61 L RBC 3.41 L Hgb 10.3 L Hct 30.4 L MCV 89.1 MCH 30.2 MCHC 33.9 RDW Std Deviation 49.9 H RDW Coeff of Scott 15.4 H Plt Count 140 MPV 9.0 Sodium 144 Potassium 3.7 D Chloride 119 H Carbon Dioxide 17 L Anion Gap 8.0 BUN 20 H Creatinine 1.09 Est Cr Clr Drug Dosing 45.0 Est GFR ( Amer) 75.0 Est GFR (Non-Af Amer) 64.7 BUN/Creatinine Ratio 18.8 Glucose 85 POC Glucose 99 Calcium 8.0 L Total Bilirubin 0.8 Direct Bilirubin 0.2 AST 37 ALT 39 Alkaline Phosphatase 77 Ammonia Total Protein 4.8 L D Albumin 2.1 L Globulin 2.7 Albumin/Globulin Ratio 0.8 L 04/01/19 11:40 WBC RBC Hgb Hct MCV MCH MCHC RDW Std Deviation RDW Coeff of Scott Plt Count MPV Sodium Potassium Chloride Carbon Dioxide Anion Gap BUN Creatinine Est Cr Clr Drug Dosing Est GFR ( Amer) Est GFR (Non-Af Amer) BUN/Creatinine Ratio Glucose POC Glucose 117 H Calcium Total Bilirubin Direct Bilirubin AST ALT Alkaline Phosphatase Ammonia Total Protein Albumin Globulin Albumin/Globulin Ratio
[2019-04-02 06:46] LABS: Appearance Urine Clear (Clear); Bilirubin Urine Negative (Negative); Blood Urine Negative (Negative); Color Urine Dark Yellow; Glucose Urine UA Negative (Negative); Ketones Urine Trace (Negative); Leukocyte Esterase Urine Negative (Negative); Nitrite Urine Negative (Negative); Protein Urine Negative (Negative); Specific Gravity Urine 1.024 (1.000-1.030); Urobilinogen Urine Negative (Negative)
[2019-04-02] MEDS: FUROSEMIDE 20 MG TAB PO SCH (08:14)
[2019-04-02] MEDS: RIFAXIMIN 550 MG TABLET PO SCH ×2 (08:14→21:34)
[2019-04-02] MEDS: PANTOprazole 40 MG TAB PO SCH ×2 (08:14→21:34)
[2019-04-02] MEDS: FLUTICASONE PROPIONATE NA SPR 16 GM BTL NAE SCH ×2 (08:14→21:33)
[2019-04-02] MEDS: TAMSULOSIN HCL 0.4 MG CAP PO SCH (08:14)
[2019-04-02] MEDS: SPIRONOLACTONE 25 MG TAB PO SCH (08:15)
[2019-04-02] MEDS: MULTIVITAMIN TAB PO SCH (08:15)
[2019-04-02] MEDS: INSULIN ASPART 100 UNITS/ML 3 ML PEN SC SCH ×4 (08:45→21:06)
--- NOTE | 2019-04-02 09:15 | Radiation OncologyConsultation ---
Date of Consultation April 02, 2019 Assessment & Plan (1) Squamous cell carcinoma of neck: Patient is currently on treatment for radiation therapy for head and neck cancer of unknown primary. He has received 6/30 fractions. The patient is admitted to the hospital for hepatic encephalopathy/unrelated medical issues. We will continue treatment while the patient is in the hospital. I have discussed the case with the primary care team as well. Present on Admission?: Yes History of Present Illness Allergies Allergy/AdvReac Type Severity Reaction Status Date / Time No Known Allergies Allergy Verified 03/31/19 10:17 Home Medications Home Medications Medication Instructions Recorded Confirmed Type apixaban [Eliquis] 5 mg PO BID 12/21/18 03/31/19 History metformin 500 mg PO DAILY 12/21/18 03/31/19 History av-veg-uvoyp acid-lutein [Centrum 1 tab PO DAILY 12/21/18 03/31/19 History Silver] omeprazole magnesium [Prilosec OTC] 20 mg PO BID 12/21/18 03/31/19 History ranitidine HCl 150 mg PO BID PRN 12/21/18 03/31/19 History spironolactone 50 mg PO QAM 12/21/18 03/31/19 History tamsulosin [Flomax] 0.4 mg PO QAM 12/21/18 03/31/19 History fluticasone propionate [Flonase 1 spray INTRANASAL BID 01/07/19 03/31/19 History Allergy Relief] loratadine 10 mg PO DAILY PRN 01/07/19 03/31/19 History sildenafil [Viagra] 100 mg PO DAILY PRN 01/07/19 03/31/19 History polyethylene glycol 3350 [Miralax] 17 g PO BID 01/27/19 03/31/19 History artificial tears (hypromellose) 1 drops OP QID PRN 02/17/19 03/31/19 History 0.3 % eye gel cholecalciferol (vitamin D3) 2,000 1,000 units PO DAILY tab 02/17/19 03/31/19 History unit tablet furosemide 20 mg tablet 20 mg PO DAILY tab 02/17/19 03/31/19 History ketoconazole 2 % topical cream 1 appln TOP DAILY 02/17/19 03/31/19 History sodium chloride 0.65 % nasal spray 2 sprays INTNAS QID PRN 02/17/19 03/31/19 History aerosol lactulose 30 g PO DAILY 03/31/19 03/31/19 History Patient History Medical History Paroxysmal A-fib (Chronic) Sleep apnea (Chronic) NO DEVICE USED Depression (Chronic) History of abdominal paracentesis (Resolved) 02/08/19, 11/2018 Cirrhosis (Chronic) Ascites (Chronic) 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 Elevated LFTs suspected to be from DILI vs AIH. LFTs normalized now so immunosuppression use was deferred. 4L fluid drained 12/15. Abdomen noticeably distended at [facility] appt on 12/31/18. Diabetes mellitus, type II (Chronic) HTN (hypertension) (Chronic) No current meds - currently controlled HLD (hyperlipidemia) (Chronic) PVCs (premature ventricular contractions) (Chronic) BPH (benign prostatic hyperplasia) (Chronic) GERD (gastroesophageal reflux disease) (Chronic) Spontaneous bacterial peritonitis (Resolved) Jun 2018. Pt was admitted for a fib RVR and ascites, fluid drawn from abdomen showed SBP. Treated with ABX and discharged. Following now with [facility] ([facility]/Lizzette Mitchell) and Dr. Monreal (Hepatology). Surgical History History of eye surgery (Chronic) 2008 - TEAR DUCT OPENED UP History of adenoidectomy (Chronic) 01/11/19 History of cataract surgery (Chronic) RT/LEFT History of tonsillectomy (Chronic) 01/11/19 History of tooth extraction (Chronic) 01/11/19 History of colonoscopy (Chronic) 01/30/16 History of esophagogastroduodenoscopy (EGD) (Chronic) 11/07/2010, 06/23/18 - with endoscopic US History of liver biopsy (Chronic) 05/2018 History of laryngoscopy (Chronic) 01/11/19 - with biopsies + right modified radical cervical lymphadenectomy History of ERCP (Chronic) 05/12/18 - stent removed History of intraocular lens implant (Chronic) 2008 - Bilateral History of hernia repair (Chronic) 04/02/18 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 Yan 2, grade 1 view. 8.0 ETT. Family History Mother , Passed age 49 from Leukemia No problems noted. Sister , Passed age 6 months of pneumonia No problems noted. Brother , Passed in late 50's of [place] No problems noted. Sister , Passed in 60's of diabetic complications No problems noted. Sister No problems noted. Daughter Breast cancer, Onset Age: 40 Stage III - Currently doing well Brother No problems noted. Brother No problems noted. 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 Other Information That Helps Us Care for You: No Feels Safe at Home: Yes Safety Concerns: Feels Safe At This Time Smoking Status: Former smoker Tobacco Type: smokeless tobacco packs per day: 0.5 Years Smoked: 30 Do You Dip or Chew Tobacco: Yes (Currently and "I'm not giving it up") Smoking End Date: Second Hand Exposure: No Tobacco Cessation Education Requested by Patient: No Hx Alcohol Use: No Hx Substance Use: No caffeine: Yes (3 cups of coffee/week with tea inbetween ) during the past year weight has: decreased > 10 lbs Results Additional Studies 03/31/19 09:38 ECG [address] head/brain wo con Stat XR chest 1V portable Stat 03/31/19 11:23 US abdomen ltd ascites Stat US duplex portal hepatic veins Stat
[2019-04-02] MEDS: LACTULOSE SYRUP 30 GM/45 ML UDP PO SCH ×3 (09:23→21:32)
--- NOTE | 2019-04-02 10:31 | Gastroenterology Progress Note ---
Date of Service April 02, 2019 Assessment & Plan (1) Confusion: 79 year old male with history of cirrhosis, large volume ascites poorly controlled w/ diuresis secondary to dose tolerability who is now s/p TIPS w/ marked improvement of ascites. He was started on lactulose in addition to miralax as prevention of encephalopathy following TIPS. Granddaughter notes compliance with lactulose but he had d/c miralax and had not moved his bowels in a few days. Over the past 48 hours family noted confusion, slurred speech and that he was unsteady on his feet. More awake this AM, oriented to person, place, time. Offers no complaints. Altered Mental Status w/ elevated ammonia level s/p TIPS - CT Head negative - Rule out infection - Chest XR - Urine culture - Blood culture - Xifaxan 550 twice daily - Lactulose 30G 2-3 times daily titrated to 2-3 stools daily - Miralax 1 capful 1-2 times daily in addition if needed Cirrhosis Management - Continue current dosing of Lasix/Aldactone, hopefully these can be D/C in the near future - Low sodium diet - Less than 2G tylenol - No NSAIDs - MELD labs, HCC and TIPS evaluation every 6 months per outpatient provider GI to sign off. Thank you for allowing us to participate in the care of this patient. Please call with any acute changes, questions or concerns. Please see addendum below with additional recommendation from my supervising physician. Supervising Physician Co-Signing Physician Notes I have seen and examined the patient with CHRISTOFER Miramontes whose note reflects our findings and plan Subjective Pt was seen and evaluated, chart reviewed. No acute events noted. Just returned from radiation. Is more awake this AM. OOB in chair. Hungry, wants to go home. Denies any nausea, vomiting. No abd pain. Has been moving his bowels. No black or bloody stools. No CP, SOB. Answering all questions appropriately this AM. Diagnosis: cirrhosis Decompensations Ascites: s/p TIPS 03/16/19 on Lasix 20, aldactone 50 mg HE: present s/p TIPS on lactulose, miralax Varices: none Screening Immunization: Hep A/B immune HCC: UTD TIPS: UTD Varices: S/P TIPS will defer to primary GI Cultures: pending Hepatic Duplex: The portal veins, hepatic veins, and TIPS appear patent. ABD US: Moderate ascites CT Head: No acute intracranial abnormality. Atrophy and microvascular ischemic changes. Chest XR: No acute cardiopulmonary disease Review of Systems Constitutional: no fever and no body aches Respiratory: no cough and no dyspnea Cardiovascular: no chest pain and no palpitations Gastrointestinal: no abdominal pain, no early satiety, no coffee ground emesis, no hematemesis, no blood in stools and no melena Physical Exam Constitutional: WD/WN, vitals as above + ill appearing (chronically ill); no acute distress Neck: trachea midline Respiratory: normal respiratory effort, lungs clear to auscultation normal respiratory effort Auscultation: + diminished lung sounds Cardiovascular: Rate/Rhythm: regular rate and regular rhythm Gastrointestinal (Abdomen): Inspection/Auscultation: + abdomen distended (mild abd distention) and normal bowel sounds Percussion/Palpation: abdomen soft; abdomen nontender, no guarding and abdomen not rigid Skin: no rashes, warm and dry no jaundice Psychiatric: Orientation: alert Results & Data Vital Signs (Past 12 Hours) Vital Signs Temp Pulse Pulse Resp BP Pulse Ox 04/02/19 07:28 36.8 C 71 16 100/61 98 04/02/19 07:00 69 04/02/19 03:06 37.1 C 75 18 104/64 96 04/02/19 00:15 74 04/02/19 00:00 97/56 L 04/01/19 23:10 37.5 C 75 18 88/47 L 96
[2019-04-02 16:39] LABS: BUN Creatinine Ratio 12.3 (10-20); Calcium 8.2 mg/dl (8.5-10.1); Creatinine Clr Calc Pharmacy 38.9 ml/min; Est GFR (African American) 62.9; Est GFR (Non-African American) 54.3
--- NOTE | 2019-04-02 18:48 | Hospitalist Progress Note ---
Date of Service delayed entry date of service as noted below April 02, 2019 Assessment & Plan (1) Confusion: (2) Hepatic encephalopathy: per admitting notes: Pt presented to ER for increased confusion since yesterday. On lactulose daily for cirrhosis. Recent TIPS procedure. Reports was having constipation. In ER afebrile, P: 77, R: 20, BP: 124/50, 100% on RA. No leukocytosis, ammonia: 65, no significant changes in LFTs In ER given lactulose CT HEAD: no acute changes urine culture, blood cultures: negative -increased lactulose to TID to have 2-3 loose stools daily -added rifaximin -GI consulted - oriented, answers questions appropriately Continue lactulose, rifaximin, MiraLAX per GI recommendations (3) Cirrhosis: (4) Ascites: per admitting notes: H/O TIPS procedure on 03/16/19 INR: 1.1, ammonia: 65, no significant changes in LFTs US Abd: moderate ascites US Portal vein:The portal veins, hepatic veins, and TIPS appear patent. -continue lasix, spironolactone (5) Squamous cell carcinoma of neck: on Rad Tx care of Dr. Radhika Garcia Continued while patient was admitted (6) Paroxysmal A-fib: Current sinus rhythm Has been off apixaban since TIPS procedure Discussed with patient's family Currently patient is in normal sinus rhythm (7) Diabetes mellitus, type II: A1c: 5.9 on 01/2019 continue Metformin (8) HTN (hypertension): Stable -Continue Lasix, spironolactone (9) Sleep apnea: -Not on CPAP (10) GERD (gastroesophageal reflux disease): -Continue PPI, H2 clau (11) CKD (chronic kidney disease), stage III: Cr: 1.49. Baseline Cr: 1.2 - crea 1.09 DVT Prophylaxis - heparin SC given Full Code as per discussion with pt, pt's and pt's daughter, however would not prolonged on life support if poor prognosis Follows with Dr Das for routine care Disposition d/c home with [facility] when medically stable Subjective Follow-up for hepatic encephalopathy Seen resting in bed, comfortable Oriented x2, answers all questions appropriately States he feels fine overall Feels better compared to yesterday Denies abdominal pain chest pain shortness of breath Denies any other symptoms Review of Systems Review of Systems: All systems reviewed & are unremarkable except as noted in HPI & below Physical Exam Physical Exam: General- oriented x2, not in distress, speaks in sentences with no effort or accessory muscle use Eyes- anicteric Neck- no JVD Lungs- clear BS bilaterally no rales/wheezes Heart- normal rate, regular rhythm; no murmurs Abdomen- normal bowel sounds, nondistended, soft, nontender (+) hernia- non tender Extremities- no pretibial edema, no calf tenderness Neuro- alert, oriented x 2; no gross focal neurologic deficits Skin- warm & dry Results & Data Vital Signs (Past 12 Hours) Vital Signs Temp Pulse Pulse Pulse Resp BP BP 04/02/19 15:43 36.9 C 78 18 109/66 04/02/19 12:07 04/02/19 11:07 37.1 C 77 16 103/65 04/02/19 07:28 36.8 C 71 16 100/61 04/02/19 07:00 69 Pulse Ox 04/02/19 15:43 99 04/02/19 12:07 96 04/02/19 11:07 96 04/02/19 07:28 98 04/02/19 07:00
[2019-04-02] MEDS: HEPARIN SOD 5,000 UNIT/0.5 ML VIAL SQ SCH (21:33)
[2019-04-03 06:30] LABS: Calcium 7.7 mg/dl (8.5-10.1); Creatinine Clr Calc Pharmacy 42.6 ml/min; Est GFR (African American) 70.3; Est GFR (Non-African American) 60.6; Potassium 3.9 mmol/L (3.5-5.1)
[2019-04-03] MEDS: SPIRONOLACTONE 25 MG TAB PO SCH (09:34)
[2019-04-03] MEDS: MULTIVITAMIN TAB PO SCH (09:34)
[2019-04-03] MEDS: HEPARIN SOD 5,000 UNIT/0.5 ML VIAL SQ SCH (09:34)
[2019-04-03] MEDS: RIFAXIMIN 550 MG TABLET PO SCH (09:34)
[2019-04-03] MEDS: TAMSULOSIN HCL 0.4 MG CAP PO SCH (09:34)
[2019-04-03] MEDS: FUROSEMIDE 20 MG TAB PO SCH (09:34)
[2019-04-03] MEDS: LACTULOSE SYRUP 30 GM/45 ML UDP PO SCH ×2 (09:34→16:04)
[2019-04-03] MEDS: PANTOprazole 40 MG TAB PO SCH (09:34)
[2019-04-03] MEDS: FLUTICASONE PROPIONATE NA SPR 16 GM BTL NAE SCH (09:35)
[2019-04-03] MEDS: INSULIN ASPART 100 UNITS/ML 3 ML PEN SC SCH ×3 (09:36→17:43)
[2019-04-03 11:59] VITALS: TEMP 98.1; O2SAT 98
--- NOTE | 2019-04-03 15:46 | Hospitalist Progress Note ---
Date of Service April 03, 2019 Assessment & Plan (1) Confusion: (2) Hepatic encephalopathy: per admitting notes: Pt presented to ER for increased confusion since yesterday. On lactulose daily for cirrhosis. Recent TIPS procedure. Reports was having constipation. In ER afebrile, P: 77, R: 20, BP: 124/50, 100% on RA. No leukocytosis, ammonia: 65, no significant changes in LFTs In ER given lactulose CT HEAD: no acute changes urine culture, blood cultures: negative -GI consulted -increased lactulose to TID to have 2-3 loose stools daily -added rifaximin - patient clinically improved - oriented, answers questions appropriately Continue lactulose, rifaximin, MiraLAX PRN for ensure 2-3 BMs/day ff up with GI in 2 weeks (3) Cirrhosis: (4) Ascites: per admitting notes: H/O TIPS procedure on 03/16/19 INR: 1.1, ammonia: 65, no significant changes in LFTs US Abd: moderate ascites US Portal vein:The portal veins, hepatic veins, and TIPS appear patent. -continue lasix, spironolactone - HCO3 while admitted - repeat BMP on ff up with PCP (5) Squamous cell carcinoma of neck: on Rad Tx care of Dr. Constance Garcia (6) Paroxysmal A-fib: Current sinus rhythm Has been off apixaban since TIPS procedure Discussed with patient's family Currently patient is in normal sinus rhythm discussed with Environmental Engineer Dr. Lau- recommend to discontinue Eliquis for now (7) Diabetes mellitus, type II: A1c: 5.9 on 01/2019 continue Metformin (8) HTN (hypertension): Stable -Continue Lasix, spironolactone (9) Sleep apnea: -Not on CPAP (10) GERD (gastroesophageal reflux disease): -Continue PPI, H2 clau (11) CKD (chronic kidney disease), stage III: Cr: 1.49. Baseline Cr: 1.2 - crea 1.09 DVT Prophylaxis - heparin SC given Full Code as per discussion with pt, pt's and pt's daughter, however would not prolonged on life support if poor prognosis Disposition d/c home with [facility] when medically stable ff up with Dr. Das in 3-5 days, sched office closed today, will contact patient ff up with GI in 2 weeks ff up with Rad Onco as scheduled Subjective ff up for hepatic encephalopathy seen resting in bed, comfortable oriented x 2, answers questions appropriately states he feels fine overall denies confusion, drowsiness, abdominal pain ,nausea/vomiting denies other symptoms states he is ready and would like to be discharged today Review of Systems Review of Systems: All systems reviewed & are unremarkable except as noted in HPI & below Physical Exam Physical Exam: General- oriented x 2, not in distress, speaks in sentences with no effort or accessory muscle use Eyes- anicteric Neck- no JVD Lungs- clear BS BL Heart- normal rate, regular rhythm; no murmurs Abdomen- normal bowel sounds, nondistended, soft, nontender Extremities- no pretibial edema, no calf tenderness Neuro- alert, oriented x 2; no gross focal neurologic deficits Skin- warm & dry Results & Data Vital Signs (Past 12 Hours) Vital Signs Temp Pulse Pulse Resp BP BP Pulse Ox 04/03/19 11:59 36.7 C 77 20 114/68 98 04/03/19 07:00 37.1 C 79 80 16 98/62 L 93 04/03/19 03:47 37.1 C 87 16 101/63 96 Laboratory Results Laboratory Results - last 24 hr 04/02/19 04/02/19 04/02/19 16:02 16:22 20:43 Sodium 142 Potassium 4.0 Chloride 116 H Carbon Dioxide 16 L Anion Gap 11.0 BUN 16 Creatinine 1.26 Est Cr Clr Drug Dosing 38.9 Est GFR ( Amer) 62.9 Est GFR (Non-Af Amer) 54.3 BUN/Creatinine Ratio 12.3 Glucose 132 H POC Glucose 130 H 125 H Calcium 8.2 L 04/03/19 04/03/19 04/03/19 05:47 07:29 11:47 Sodium 139 Potassium 3.9 Chloride 115 H Carbon Dioxide 16 L Anion Gap 8.0 BUN 14 Creatinine 1.15 Est Cr Clr Drug Dosing 42.6 Est GFR ( Amer) 70.3 Est GFR (Non-Af Amer) 60.6 BUN/Creatinine Ratio 12.0 Glucose 106 H POC Glucose 121 H 174 H Calcium 7.7 L
--- NOTE | 2019-04-03 15:46 | Discharge Summary ---
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 Patient presents with granddaughter and she provides most of history secondary to patient's confusion. Reports yesterday noticed patient with increased confusion, inappropriate answers to questions and was having delayed responses. Granddaughter reports patient had significant abdominal distention [place] [facility] [place] denies noting any increased abdominal distention over the past couple days. Denies abdominal pain. Reports patient had BM this morning otherwise had been constipated. Unsure if patient has been eating and drinking well. Patient's granddaughter reports she does not believe patient has had much of an appetite. Patient lives at home with who just recently returned from rehab facility. It is believed that patient had his morning medicines today. Patient followed up with GI on 03/23/2019 and Lasix was decreased to 20 mg daily, spironolactone to 50 mg daily and lactulose to 30 g daily. Patient was previously on Eliquis, patient has not been taking as was on hold and unsure how long he was to hold the medication. Patient started radiation last week for squamous cell carcinoma to the neck. Denies fever/chills, diaphoresis, N/V, [place], dizziness, syncope, vision changes, neck pain, CP, SOB, orthopnea, palpitations, cough, sore throat, choking, otalgia, rhinorrhea, paresthesias, extremity edema, extremity weakness, rashes, urinary symptoms, hematuria, melena, hematochezia. History EGD 03/2018 no varices Admission Exam Per Admitting Provider General: no distress, thin, chronic ill appearing Head: normocephalic, atraumatic Eyes: PERRL, EOM's intact, conjunctiva non-injected, anicteric ENT: normal inspection external ears, nose, mucous membranes mildly dry Neck: supple, trachea midline Lungs: clear, no respiratory distress, no wheezing/rhonchi/rales CV: RRR, no murmur, no pretibial edema Abd: normal BS, soft, +umbilical hernia that is non-tender, non-tender Ext: no cyanosis, no calf tenderness Neuro: Alert, oriented to person, place, no focal deficits noted, normal affect Skin: warm, dry Principal Diagnosis HEPATIC ENCEPHALOPATHY Discharge Exam General- oriented x 2, not in distress, speaks in sentences with no effort or accessory muscle use Eyes- anicteric Neck- no JVD Lungs- clear BS BL Heart- normal rate, regular rhythm; no murmurs Abdomen- normal bowel sounds, nondistended, soft, nontender Extremities- no pretibial edema, no calf tenderness Neuro- alert, oriented x 2; no gross focal neurologic deficits Skin- warm & dry Discharge Data Allergies Allergy/AdvReac Type Severity Reaction Status Date / Time No Known Allergies Allergy Verified 03/31/19 10:17 Consultations 03/31/19 13:22 ED Decision to Admit Stat 03/31/19 15:51 Consult Case Management - Discharge Planning Routine Consult Gastroenterology Routine 04/01/19 15:06 Consult Radiation Oncology Routine Ordered Studies 03/31/19 09:38 CT head/brain wo con Stat HEAD CT NONCONTRAST CT DOSE: 537.48 mGy.cm HISTORY: confusion TECHNIQUE: Multiaxial CT images of the head were performed without the use of intravenous contrast. Automated exposure control was utilized for this study. A dose lowering technique was utilized adhering to the principles of ALARA. Comparison: None. Findings: Opacified left ethmoid air cells. No fluid levels within the paranasal sinuses. The mastoid air cells are clear. The calvarium and skull base are intact. There is no mass, hematoma, midline shift, acute infarct. White matter hypodensity is nonspecific but suggestive of microvascular ischemic change. The ventricles and sulci demonstrate mild age-related involutional changes. Impression: No acute intracranial abnormality. Atrophy and microvascular ischemic changes. 03/31/19 11:23 US abdomen ltd ascites Stat US abdomen ltd ascites CLINICAL HISTORY: h/o cirrhosis. Abdominal distention. COMPARISON STUDY: Paracentesis ultrasound 03/07/2019. FINDINGS: Moderate ascites most pronounced within the right lower quadrant. This demonstrates a few internal echoes, unchanged. This appears of slightly improved compared to the prior study on 03/07/2019. IMPRESSION: Moderate ascites. US duplex portal hepatic veins Stat US duplex portal hepatic veins CLINICAL HISTORY: eval TIPS. Ascites. Cirrhosis. COMPARISON STUDY: Abdomen and pelvis CT 06/25/2018. FINDINGS: The visualized portal and hepatic veins appear patent. The TIPS is also patent and demonstrates normal velocities measuring up to 141 cm/s. The IVC appears patent. Moderate ascites. IMPRESSION: The portal veins, hepatic veins, and TIPS appear patent. Hospital Course (1) Confusion: (2) Hepatic encephalopathy: per admitting notes: Pt presented to ER for increased confusion since yesterday. On lactulose daily for cirrhosis. Recent TIPS procedure. Reports was having constipation. In ER afebrile, P: 77, R: 20, BP: 124/50, 100% on RA. No leukocytosis, ammonia: 65, no significant changes in LFTs In ER given lactulose CT HEAD: no acute changes Doppler of Hepatic Veins:The portal veins, hepatic veins, and TIPS appear patent. urine culture, blood cultures: negative -GI consulted -increased lactulose to TID to have 2-3 loose stools daily -added rifaximin - patient clinically improved - oriented, answers questions appropriately Continue lactulose, rifaximin, Miralax PRN for ensure 2-3 BMs/day ff up with GI in 2 weeks (3) Cirrhosis: (4) Ascites: per admitting notes: H/O TIPS procedure on 03/16/19 INR: 1.1, ammonia: 65, no significant changes in LFTs US Abd: moderate ascites US Portal vein:The portal veins, hepatic veins, and TIPS appear patent. -continue lasix, spironolactone - HCO3 while admitted -19 repeat BMP on ff up with PCP (5) Squamous cell carcinoma of neck: on Rad Tx care of Dr. Constance Garcia (6) Paroxysmal A-fib: Current sinus rhythm Has been off apixaban since TIPS procedure Discussed with patient's family Currently patient is in normal sinus rhythm discussed with Plumbing Hardware Assembler Dr. Lau- recommend to discontinue Eliquis for now (7) Diabetes mellitus, type II: A1c: 5.9 on 01/2019 continue Metformin (8) HTN (hypertension): Stable -Continue Lasix, spironolactone (9) Sleep apnea: -Not on CPAP (10) GERD (gastroesophageal reflux disease): -Continue PPI, H2 clau (11) CKD (chronic kidney disease), stage III: Cr: 1.49. Baseline Cr: 1.2 - crea 1.09 DVT Prophylaxis - heparin SC given Full Code as per discussion with pt, pt's and pt's daughter, however would not prolonged on life support if poor prognosis Disposition d/c home with [facility] when medically stable ff up with Dr. Das in 3-5 days, sched office closed today, will contact patient ff up with GI in 2 weeks ff up with Rad Onco as scheduled Total Time Total Time Spent Total Time Spent (In Minutes): 45 minutes Discharge Plan Discharge Items Patient Disposition: Home - Home Health Services Reason For Visit: HEPATIC ENCEPHALOPATHY Discharge Diagnosis: HEPATIC ENCEPHALOPATHY Discharge Goals: Diagnostic testing and Therapeutic intervention Activity: As commented below Activity Comment: NO HEAVY EXERTION, RESUME ACTIVITY GRADUALLY TOLERATED Lifting: Wait until after follow-up appointment Exercise/Sports: Wait until after follow-up appointment Driving/Machine Use Comment: NO DRIVING Non-emergency contact: Primary Care Provider and Tax Attorney Call non-emergency contact if: you have any medication questions, your symptoms worsen and you have a fever Follow-up/Referrals: Renard Das MD [Primary Care Provider] - Diet: Heart Healthy Addtl Provider Instructions: FOLLOW UP WITH PRIMARY CARE PHYSICIAN IN 3-5 DAYS. FOLLOW UP WITH THE [facility]ST[facility] IN 2 WEEKS. THE CLINIC WILL BE CALLING YOU FOR THE APPOINTMENT. CONTINUE RADIATION THERAPY. PLEASE ENSURE 2-3 BOWEL MOVEMENTS PER DAY. YOU MAY USE MIRALAX 1-2X DAILY NEEDED IN ADDITION TO LACTULOSE. PLEASE CALL PRIMARY CARE PHYSICIAN OR RETURN TO THE ER IMMEDIATELY IF WITH WORSENING OF SYMPTOMS, CONFUSION, DROWSINESS, WEAKNESS, FEVER/CHILLS, NAUSEA/VOMITING. Prescriptions: New Xifaxan 550 mg Tablet 550 mg PO BID 30 Days Qty: 60 RF: 1 Continued artificial tears(hypromellose) 0.3 % gel 1 drops OP QID PRN (Reason: dryness) RF: 0 ketoconazole 2 % cream 1 appln TOP DAILY RF: 0 sodium chloride [[place] Saline] 0.65 % aerosol,spray 2 sprays INTNAS QID PRN (Reason: dryness) RF: 0 metformin 500 mg Tablet 500 mg PO DAILY RF: 0 tamsulosin [Flomax] 0.4 mg Capsule 0.4 mg PO QAM RF: 0 ranitidine HCl 150 mg Tablet 150 mg PO BID PRN (Reason: Nausea) RF: 0 spironolactone 50 mg Tablet 50 mg PO QAM RF: 0 Prilosec OTC 20 mg Tablet,Delayed Release (Dr/Ec) 20 mg PO BID RF: 0 Centrum Silver 400-250 mcg Tablet,Chewable 1 tab PO DAILY RF: 0 furosemide 20 mg tablet 20 mg PO DAILY RF: 0 cholecalciferol (vitamin D3) [Vitamin D3] 2,000 unit tablet 1,000 units PO DAILY RF: 0 polyethylene glycol 3350 [Miralax] 17 gram/dose Powder 17 g PO BID RF: 0 lactulose 20 gram/30 mL Solution 30 g PO DAILY RF: 0 fluticasone propionate [Flonase Allergy Relief] 50 mcg/actuation [place],Suspension 1 spray INTRANASAL BID RF: 0 loratadine 10 mg Tablet 10 mg PO DAILY PRN (Reason: Allergic Symptoms) RF: 0 Changed lactulose 20 gram/30 mL Solution 30 g PO TID Qty: 0 RF: 0 Discontinued Eliquis 5 mg Tablet 5 mg PO BID RF: 0 sildenafil [Viagra] 100 mg Tablet 100 mg PO DAILY PRN (Reason: Erectile Dysfunction) RF: 0 Stand-Alone Forms: [facility] Discharge Orders: Discharge Order (Routine); Ordered 04/03/19 Ordered By: Vasyl Han Admission Data Admit Date/Time: 03/31/19 13:26 Attending Provider: Vasyl Han Admit Provider: Gaetano Diaz Primary Care Provider: Renard Das Other Providers: Gaetano Diaz ; Gwendolyn Erickson ; Constance Garcia Service: Telemetry Medical
[2019-04-03 16:04] VITALS: BP 98/62
[2019-04-03 17:46] VITALS: PULSE 75
== END 2019-04-03 16:00 | disposition home health service (06) | DRG 442 ==
LOC: ED 09:23 → 2N 13:26

== ENCOUNTER 2019-06-11 14:52 | Inpatient (IN) ==
[2019-06-11] MEDS ORDERED: SODIUM CHLORIDE 0.9% 500 ML IV SCH (15:30)
[2019-06-11 15:55] LABS: Basophils # (auto) 0.02 K/uL (0-0.2); Basophils % (auto) 0.6 %; Eosinophils # (auto) 0.12 K/uL (0-0.5); Eosinophils % (auto) 3.3 %; Hematocrit (blood only) 28.6 % (42-52); Immature Granulocytes # (auto) 0.03 K/uL (0.00-0.02); Immature Granulocytes % (auto) 0.8 %; Lymphocytes # (auto) 0.66 K/uL (1.2-3.4); Lymphocytes % (auto) 18.4 %; Mean Platelet Volume 8.9 fL (7.4-10.4); Monocytes # (auto) 0.35 K/uL (0.11-0.59); Monocytes % (auto) 9.7 %; Neutrophils # (auto) 2.41 K/uL (1.4-6.5); Neutrophils % (auto) 67.2 %; Platelet Count 109 K/uL (130-400); RDW Coefficient of Variation 17.4 % (11.5-14.5); RDW Standard Deviation 58.2 fL (36.4-46.3); Red Blood Count 3.11 M/uL (4.7-6.1); White Blood Count 3.59 K/uL (4.8-10.8)
[2019-06-11 16:07] LABS: INR 1.2 (0.9-1.1); Partial Thromboplastin Ratio 1.1; Partial Thromboplastin Time 29.5 Seconds (21.0-31.0); Prothrombin Time 11.9 Seconds (9.0-12.0)
--- NOTE | 2019-06-11 16:11 | XRay Report ---
XR chest 1V portable CLINICAL HISTORY: Shortness of breath COMPARISON STUDY: 03/31/2019 FINDINGS: The heart is the upper limits of normal in size. There is slight elevation of interstitium. This could relate to technical factors given the AP technique and suboptimal inspiration, or represe nt mild pulmonary vascular congestion. There is no focal pulmonary consolidation. There are no pleura l effusions. There is an old right clavicular fracture.[ IMPRESSION: Slight interstitial prominence. Clinical correlation in regards to mild pulmonary vascula r congestion is recommended. No evidence of focal pulmonary consolidation Electronically signed by: Delfino Del Toro M.D. 06/11/2019 4:10 PM
[2019-06-11 16:12] LABS: Alanine Aminotransferase 28 U/L (12-78); Albumin Level 2.1 gm/dl (3.4-5.0); Aspartate Aminotransferase 34 U/L (15-37); Blood Urea Nitrogen 11 mg/dl (7-18); Calcium 7.7 mg/dl (8.5-10.1); Carbon Dioxide 21 mmol/L (21-32); Chloride 113 mmol/L (98-107); Est GFR (African American) 96.3; Est GFR (Non-African American) 83.1; Glucose 91 mg/dl (70-99); Magnesium 1.9 mg/dl (1.8-2.4); Potassium 3.5 mmol/L (3.5-5.1); Sodium 141 mmol/L (136-145)
[2019-06-11 16:16] LABS: Acanthocytes 1+; Schistocytes 1+
[2019-06-11 16:17] LABS: Albumin Globulin Ratio 0.7 (0.9-2); Alkaline Phosphatase 128 U/L (45-117); Bilirubin,Total 0.8 mg/dl (0.2-1); Globulin 3.2 gm/dl (2.5-4.0); Total Protein 5.3 gm/dl (6.4-8.2); Troponin I < 0.015 ng/ml (0-0.045)
--- NOTE | 2019-06-11 16:33 | CT Scan Report ---
CT SCAN OF THE ABDOMEN AND PELVIS WITHOUT CONTRAST CLINICAL HISTORY: Abdominal pain. Umbilical hernia. COMPARISON STUDY: 06/25/2018 TECHNIQUE: CT scan of the abdomen and pelvis was performed from the lung bases to the proximal femurs . Images are reviewed in the axial, sagittal, and coronal planes. IV contrast was not administered fo r this examination. A dose lowering technique was utilized adhering to the principles of ALARA. CT DOSE: 494.98 mGy.cm FINDINGS: Lower chest: There are coronary artery calcifications present. There are trace bilateral pleural effu sions with basilar atelectasis. There is ascitic fluid within a hiatal hernia sac Liver: The liver has a cirrhotic morphology. There is pneumobilia. A TIPS shunt catheter is visualize d. Gallbladder: Surgically absent Spleen: At the upper limits of normal in size Pancreas: Unremarkable. Adrenal glands: Unremarkable. Kidneys: No renal, ureteral, or bladder calculi are visualized. There is a 3 cm left renal cyst. Ther e is a 2.6 cm right renal cyst. Bowel: There is scattered stool throughout the colon. There are no transition zones indicate bowel ob struction. Peritoneum: There is a large volume of ascites. No free intraperitoneal air is visualized. There is a scitic fluid present within an umbilical hernia sac. Vasculature: The abdominal aorta is normal in course and caliber. Adenopathy: None. Pelvic viscera: The bladder, and pelvic viscera are unremarkable. Skeletal structures: There is generalized body wall edema IMPRESSION: 1. Examination limited due to the lack of intravenous and oral contrast, as well as generalized body wall edema and ascites. 2. Large volume of ascites 3. Persistent pneumobilia 4. Interval placement of a TIPS catheter 5. Generalized body wall edema 6. Ascitic fluid within an umbilical hernia sac 7. No renal, ureteral, or bladder calculi identified 8. No evidence of bowel obstruction. No evidence of free air 9. Cirrhotic morphology the liver 10. Bilateral renal cysts 11. Trace bilateral pleural effusions Electronically signed by: Delfino Del Toro M.D. 06/11/2019 4:32 PM
--- NOTE | 2019-06-11 18:31 | Emergency Department Note ---
Entered by Gwendolyn Rowland acting as a scribe for History of Present Illness General Chief complaint: Referred by Doctor Stated complaint: REFERRED BY DOCTOR Time Seen by Provider: 06/11/19 15:12 Source: patient and old records reviewed History of Present Illness Onset (ago): day(s) 1 Location: abdomen Pain Consistency: + other (intermittent) Maximum Pain Intensity: 3 Quality: + other (pain secondary to umbilical hernia) Exacerbated By: + other (palpation) Associated symptoms: + denies other symptoms (changes in appetite or bowel movements) The patient is a 79 year old male that is presenting to the Emergency Room with complaints of intermittent abdominal pain secondary to an umbilical hernia. The patient was referred to the ED via his records specialist during a routine visit today. The patient reports that he has had the hernia since his gall bladder was removed but notes that his doctors are usually able to push the hernia back into place. However, he states that his doctors have not been able to do so recently. He reports that he has some intermittent pain in the area but denies any pain cu rrently. The patient notes that he was able to eat today as usual and that he has regular bowel movements. He states that he takes Lactulose to regulate his bowel movements secondary to his history of cirrhosis. The patient notes that his abdomen is slightly more full than usual. He denies any other complaints beyond the hernia at this time. Upon review of the records from [facility], the patients hernia used to be easy to reduce but has changed recently. The notes state that the patient has gained weight recently as well. The patient has undergone a TIPS procedure in the past for his liver issues. Home Medications Home Medications Medication Instructions Recorded Confirmed Type Centrum Silver 1 tab PO QAM 12/21/18 06/11/19 History Prilosec OTC 20 mg PO BID 12/21/18 06/11/19 History metformin 500 mg PO QAM 12/21/18 06/11/19 History ranitidine HCl 150 mg PO BID PRN 12/21/18 06/11/19 History spironolactone 50 mg PO QAM 12/21/18 06/11/19 History tamsulosin [Flomax] 0.4 mg PO QAM 12/21/18 06/11/19 History fluticasone propionate [Flonase 1 spray INTRANASAL BID 01/07/19 06/11/19 History Allergy Relief] loratadine 10 mg PO DAILY PRN 01/07/19 06/11/19 History polyethylene glycol 3350 [Miralax] 17 g PO BID PRN 01/27/19 06/11/19 History artificial tears (hypromellose) 1 drops OP QID PRN 02/17/19 06/11/19 History 0.3 % eye gel cholecalciferol (vitamin D3) 2,000 2,000 units PO QAM tab 02/17/19 06/11/19 History unit tablet furosemide 20 mg tablet 20 mg PO QAM tab 02/17/19 06/11/19 History ketoconazole 2 % topical cream 1 appln TOP DAILY 02/17/19 06/11/19 History sodium chloride 0.65 % nasal spray 2 sprays INTNAS QID PRN 02/17/19 06/11/19 History aerosol lactulose 30 g PO TID #0 ml 04/03/19 06/11/19 Rx Allergies Allergy/AdvReac Type Severity Reaction Status Date / Time No Known Allergies Allergy Verified 06/11/19 15:51 Past Med/Surg History Medical History Paroxysmal A-fib (Chronic) Sleep apnea (Chronic) NO DEVICE USED Depression (Chronic) History of abdominal paracentesis (Resolved) 02/08/19, 11/2018 Cirrhosis (Chronic) Ascites (Chronic) 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 Elevated LFTs suspected to be from DILI vs AIH. LFTs normalized now so immunosuppression use was deferred. 4L fluid drained 12/15. Abdomen noticeably distended at PAT appt on 12/31/18. Diabetes mellitus, type II (Chronic) HTN (hypertension) (Chronic) No current meds - currently controlled HLD (hyperlipidemia) (Chronic) PVCs (premature ventricular contractions) (Chronic) BPH (benign prostatic hyperplasia) (Chronic) GERD (gastroesophageal reflux disease) (Chronic) Spontaneous bacterial peritonitis (Resolved) Jun 2018. Pt was admitted for a fib RVR and ascites, fluid drawn from abdomen showed SBP. Treated with ABX and discharged. Following now with Meaghan BORJA (Tyler/Lizzette Mitchell) and Dr. Monreal (Hepatology). Surgical History History of eye surgery (Chronic) 2008 - TEAR DUCT OPENED UP History of adenoidectomy (Chronic) 01/11/19 History of cataract surgery (Chronic) RT/LEFT History of tonsillectomy (Chronic) 01/11/19 History of tooth extraction (Chronic) 01/11/19 History of colonoscopy (Chronic) 01/30/16 History of esophagogastroduodenoscopy (EGD) (Chronic) 11/07/2010, 06/23/18 - with endoscopic US History of liver biopsy (Chronic) 05/2018 History of laryngoscopy (Chronic) 01/11/19 - with biopsies + right modified radical cervical lymphadenectomy History of ERCP (Chronic) 05/12/18 - stent removed History of intraocular lens implant (Chronic) 2008 - Bilateral History of hernia repair (Chronic) 04/02/18 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 Yan 2, grade 1 view. 8.0 ETT. Family History Mother , Passed age 49 from Leukemia No problems noted. Sister , Passed age 6 months of pneumonia No problems noted. Brother , Passed in late 50's of ID No problems noted. Sister , Passed in 60's of diabetic complications No problems noted. Sister No problems noted. Daughter Breast cancer, Onset Age: 40 Stage III - Currently doing well Brother No problems noted. Brother No problems noted. 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 and A total of 10 systems reviewed and were otherwise negative Physical Exam Vital Signs Vital Signs - 24 hr 06/11/19 15:01 06/11/19 15:49 06/11/19 16:28 Temperature 36.6 C Temperature Source Oral Sepsis Recent Fever Within 48 Hours No Sepsis New/Unexplained Change in Mental Status No Sepsis Action Taken by Nursing No Action Required Pulse Rate 71 Pulse Rate [Finger] 66 Pulse Rate from SpO2 Sensor Respiratory Rate 18 17 Blood Pressure 94/58 L Blood Pressure [Right Arm] 96/67 L Blood Pressure Mean 70 Blood Pressure Mean [Right Arm] 76 Pulse Oximetry 100 98 94 Oxygen Delivery Method Room Air Room Air Room Air 06/11/19 19:30 06/11/19 19:35 Temperature Temperature Source Sepsis Recent Fever Within 48 Hours Sepsis New/Unexplained Change in Mental Status Sepsis Action Taken by Nursing Pulse Rate 65 69 Pulse Rate [Finger] Pulse Rate from SpO2 Sensor 70 70 Respiratory Rate 17 14 Blood Pressure 105/61 Blood Pressure [Right Arm] Blood Pressure Mean 75 Blood Pressure Mean [Right Arm] Pulse Oximetry 99 99 Oxygen Delivery Method Room Air GENERAL: Patient is in no acute distress. HEENT: No acute trauma, normocephalic atraumatic, mucous membranes moist, no nasal congestion, no scleral icterus. NECK: No stridor, no adenopathy, no meningismus, trachea is midline. LUNGS: Clear to auscultation bilaterally, no wheeze, no rhonchi, breath sounds equal. HEART: Without murmurs gallops or rubs, regular rate and rhythm. ABDOMEN: Abdominal distension, no peritonitis, 6 cm non reducible somewhat tender umbilical hernia. Bowel sounds are positive. No erythema over the hernia. EXTREMITIES: No cyanosis, full range of motion of all the joints without pain or difficulty, no signs for acute trauma. Moderate bilateral pedal edema. NEUROLOGIC: Oriented x 3, no acute motor or sensory deficits, no focal weakness. SKIN: No rash, no jaundice, no diaphoresis. Course 151:The patient was evaluated in room B06. A complete history and physical examination was performed. 1703: I discussed the patients case with Dr. Cali, GI, who recommends that the patient be kept for observation in the hospital. 1713: I discussed the patients case with Dr. Del Toro, Radiology, who will perform a paracentesis for the patient. 1717: I updated the patient on his current lab and imaging results. He is amenable to the treatment plan and is waiting on his paracentesis procedure. 1758: I discussed the patient's case with Meaghan Dang, who will evaluate the patient for further management and care. 1924: Upon reevaluation, the patient is resting comfortably. I discussed laboratory and radiographic results with the patient. He verbalized agreement of the treatment plan. The patient will be evaluated for further management and care. Consultations Consultation #1: I discussed the patients case with Dr. Cali, GI, who recommends that the patient be kept for observation in the hospital. Time: 17:03 Consultation #2: I discussed the patients case with Dr. Del Toro, Radiology, who will perform a paracentesis for the patient. Time: 17:13 Consultation #3: I discussed the patient's case with Meaghan Dang, who will evaluate the patient for further management and care. Time: 17:58 Administered Medications Discontinued Medications Sodium Chloride (Nss) 500 mls @ 999 mls/hr IV .Q31M EARLENE Stop: 06/11/19 16:00 Last Infusion: 06/11/19 16:59 Dose: 0 mls/hr Documented by: [id number] Admin: 06/11/19 16:14 Dose: 999 mls/hr Documented by: [id number] Medical Decision Making Differential Diagnosis Differential diagnosis: Etiologies such as incarcerated hernia, strangulated hernia, bowel obstruction, ascites, renal failure, worsening liver disease, fluid overload, pancreatitis, spontaneous bacterial peritonitis, diverticulitis, UTI as well as others were entertained. Medical Records Attestation: I reviewed the patient's medical records. Home Medications Current Medication List: was personally reviewed by me Laboratory Data Attestation: I reviewed the patient's lab results. Result diagrams: 06/11/19 15:45 06/11/19 15:45 Lab Results 06/11/19 06/11/19 06/11/19 Range/Units 15:45 15:45 15:45 WBC 3.59 L (4.8-10.8) K/uL RBC 3.11 L (4.7-6.1) M/uL Hgb 10.0 L (14.0-18.0) g/dL Hct 28.6 L (42-52) % MCV 92.0 (80-100) fL MCH 32.2 (25-34) pg MCHC 35.0 (32-36) g/dL RDW Std Deviation 58.2 H (36.4-46.3) fL RDW Coeff of Scott 17.4 H (11.5-14.5) % Plt Count 109 L (130-400) K/uL MPV 8.9 (7.4-10.4) fL Immature Gran % (Auto) 0.8 % Neut % (Auto) 67.2 % Lymph % (Auto) 18.4 % [place] % (Auto) 9.7 % Eos % (Auto) 3.3 % Baso % (Auto) 0.6 % Immature Gran # (Auto) 0.03 H (0.00-0.02) K/uL Neut # (Auto) 2.41 (1.4-6.5) K/uL Lymph # (Auto) 0.66 L (1.2-3.4) K/uL [place] # (Auto) 0.35 (0.11-0.59) K/uL Eos # (Auto) 0.12 (0-0.5) K/uL Baso # (Auto) 0.02 (0-0.2) K/uL Acanthocytes (Spur) 1+ Schistocytes 1+ PT 11.9 (9.0-12.0) Seconds INR 1.2 H (0.9-1.1) APTT 29.5 (21.0-31.0) Seconds PTT Ratio 1.1 Sodium (136-145) mmol/L Potassium (3.5-5.1) mmol/L Chloride (98-107) mmol/L Carbon Dioxide (21-32) mmol/L Anion Gap (3-11) BUN (7-18) mg/dl Creatinine (0.6-1.4) mg/dl Est Cr Clr Drug Dosing ml/min Est GFR ( Amer) Est GFR (Non-Af Amer) BUN/Creatinine Ratio (10-20) Glucose (70-99) mg/dl Lactate (0.4-2.0) mmol/L Calcium (8.5-10.1) mg/dl Magnesium (1.8-2.4) mg/dl Total Bilirubin (0.2-1) mg/dl AST (15-37) U/L ALT (12-78) U/L Alkaline Phosphatase (45-117) U/L Ammonia 37.0 H (11-32) umol/L Troponin I (0-0.045) ng/ml Total Protein (6.4-8.2) gm/dl Albumin (3.4-5.0) gm/dl Globulin (2.5-4.0) gm/dl Albumin/Globulin Ratio (0.9-2) Lipase (73-393) U/L 06/11/19 06/11/19 06/11/19 Range/Units 15:45 15:45 15:45 WBC (4.8-10.8) K/uL RBC (4.7-6.1) M/uL Hgb (14.0-18.0) g/dL Hct (42-52) % MCV (80-100) fL MCH (25-34) pg MCHC (32-36) g/dL RDW Std Deviation (36.4-46.3) fL RDW Coeff of Scott (11.5-14.5) % Plt Count (130-400) K/uL MPV (7.4-10.4) fL Immature Gran % (Auto) % Neut % (Auto) % Lymph % (Auto) % [place] % (Auto) % Eos % (Auto) % Baso % (Auto) % Immature Gran # (Auto) (0.00-0.02) K/uL Neut # (Auto) (1.4-6.5) K/uL Lymph # (Auto) (1.2-3.4) K/uL [place] # (Auto) (0.11-0.59) K/uL Eos # (Auto) (0-0.5) K/uL Baso # (Auto) (0-0.2) K/uL Acanthocytes (Spur) Schistocytes PT (9.0-12.0) Seconds INR (0.9-1.1) APTT (21.0-31.0) Seconds PTT Ratio Sodium 141 (136-145) mmol/L Potassium 3.5 (3.5-5.1) mmol/L Chloride 113 H (98-107) mmol/L Carbon Dioxide 21 (21-32) mmol/L Anion Gap 7.0 (3-11) BUN 11 (7-18) mg/dl Creatinine 0.86 (0.6-1.4) mg/dl Est Cr Clr Drug Dosing 57.0 ml/min Est GFR ( Amer) 96.3 Est GFR (Non-Af Amer) 83.1 BUN/Creatinine Ratio 13.0 (10-20) Glucose 91 (70-99) mg/dl Lactate (0.4-2.0) mmol/L Calcium 7.7 L (8.5-10.1) mg/dl Magnesium 1.9 Cancelled (1.8-2.4) mg/dl Total Bilirubin 0.8 (0.2-1) mg/dl AST 34 (15-37) U/L ALT 28 (12-78) U/L Alkaline Phosphatase 128 H (45-117) U/L Ammonia (11-32) umol/L Troponin I < 0.015 Cancelled (0-0.045) ng/ml Total Protein 5.3 L (6.4-8.2) gm/dl Albumin 2.1 L (3.4-5.0) gm/dl Globulin 3.2 (2.5-4.0) gm/dl Albumin/Globulin Ratio 0.7 L (0.9-2) Lipase 175 (73-393) U/L 06/11/19 Range/Units 16:41 WBC (4.8-10.8) K/uL RBC (4.7-6.1) M/uL Hgb (14.0-18.0) g/dL Hct (42-52) % MCV (80-100) fL MCH (25-34) pg MCHC (32-36) g/dL RDW Std Deviation (36.4-46.3) fL RDW Coeff of Scott (11.5-14.5) % Plt Count (130-400) K/uL MPV (7.4-10.4) fL Immature Gran % (Auto) % Neut % (Auto) % Lymph % (Auto) % [place] % (Auto) % Eos % (Auto) % Baso % (Auto) % Immature Gran # (Auto) (0.00-0.02) K/uL Neut # (Auto) (1.4-6.5) K/uL Lymph # (Auto) (1.2-3.4) K/uL [place] # (Auto) (0.11-0.59) K/uL Eos # (Auto) (0-0.5) K/uL Baso # (Auto) (0-0.2) K/uL Acanthocytes (Spur) Schistocytes PT (9.0-12.0) Seconds INR (0.9-1.1) APTT (21.0-31.0) Seconds PTT Ratio Sodium (136-145) mmol/L Potassium (3.5-5.1) mmol/L Chloride (98-107) mmol/L Carbon Dioxide (21-32) mmol/L Anion Gap (3-11) BUN (7-18) mg/dl Creatinine (0.6-1.4) mg/dl Est Cr Clr Drug Dosing ml/min Est GFR ( Amer) Est GFR (Non-Af Amer) BUN/Creatinine Ratio (10-20) Glucose (70-99) mg/dl Lactate 2.8 H* (0.4-2.0) mmol/L Calcium (8.5-10.1) mg/dl Magnesium (1.8-2.4) mg/dl Total Bilirubin (0.2-1) mg/dl AST (15-37) U/L ALT (12-78) U/L Alkaline Phosphatase (45-117) U/L Ammonia (11-32) umol/L Troponin I (0-0.045) ng/ml Total Protein (6.4-8.2) gm/dl Albumin (3.4-5.0) gm/dl Globulin (2.5-4.0) gm/dl Albumin/Globulin Ratio (0.9-2) Lipase (73-393) U/L Imaging Data Radiologist's Impression: Radiology results as stated below per my review and the radiologist's interpretation: CT SCAN OF THE ABDOMEN AND PELVIS WITHOUT CONTRAST CLINICAL HISTORY: Abdominal pain. Umbilical hernia. COMPARISON STUDY: 06/25/2018 TECHNIQUE: CT scan of the abdomen and pelvis was performed from the lung bases to the proximal femurs. Images are reviewed in the axial, sagittal, and coronal planes. IV contrast was not administered for this examination. A dose lowering technique was utilized adhering to the principles of ALARA. CT DOSE: 494.98 mGy.cm FINDINGS: Lower chest: There are coronary artery calcifications present. There are trace b ilateral pleural effusions with basilar atelectasis. There is ascitic fluid within a hiatal hernia sac Liver: The liver has a cirrhotic morphology. There is pneumobilia. A TIPS shunt catheter is visualized. Gallbladder: Surgically absent Spleen: At the upper limits of normal in size Pancreas: Unremarkable. Adrenal glands: Unremarkable. Kidneys: No renal, ureteral, or bladder calculi are visualized. There is a 3 cm left renal cyst. There is a 2.6 cm right renal cyst. Bowel: There is scattered stool throughout the colon. There are no transition zones indicate bowel obstruction. Peritoneum: There is a large volume of ascites. No free intraperitoneal air is visualized. There is ascitic fluid present within an umbilical hernia sac. Vasculature: The abdominal aorta is normal in course and caliber. Adenopathy: None. Pelvic viscera: The bladder, and pelvic viscera are unremarkable. Skeletal structures: There is generalized body wall edema IMPRESSION: 1. Examination limited due to the lack of intravenous and oral contrast, as well as generalized body wall edema and ascites. 2. Large volume of ascites 3. Persistent pneumobilia 4. Interval placement of a TIPS catheter 5. Generalized body wall edema 6. Ascitic fluid within an umbilical hernia sac 7. No renal, ureteral, or bladder calculi identified 8. No evidence of bowel obstruction. No evidence of free air 9. Cirrhotic morphology the liver 10. Bilateral renal cysts 11. Trace bilateral pleural effusions Electronically signed by: Delfino Del Toro M.D. 06/11/2019 4:32 PM XR chest 1V portable CLINICAL HISTORY: Shortness of breath COMPARISON STUDY: 03/31/2019 FINDINGS: The heart is the upper limits of normal in size. There is slight elevation of interstitium. This could relate to technical factors given the AP technique and suboptimal inspiration, or represent mild pulmonary vascular congestion. There is no focal pulmonary consolidation. There are no pleural effusions. There is an old right clavicular fracture.[ IMPRESSION: Slight interstitial prominence. Clinical correlation in regards to mild pulmonary vascular congestion is recommended. No evidence of focal pulmon emmanuel consolidation Electronically signed by: Delfino Del Toro M.D. 06/11/2019 4:10 PM PARACENTESIS UNDER ULTRASOUND GUIDANCE CLINICAL HISTORY: ascites COMPARISON STUDY: No previous studies for comparison. FINDINGS: The risks, benefits, and alternatives to the procedure were discussed with the patient. Written informed consent was obtained. Following real-time ultrasound localization, the skin was prepped and draped. Following local anesthesia with Xylocaine, the sheath paracentesis needle was inserted and approximately 6.1 liters of straw-colored fluid was removed by vacuum suction. 1 L of fluid was sent to the lab for analysis. The patient tolerated the procedure well and left the department in satisfactory condition. IMPRESSION: Successful ultrasound-guided paracentesis with removal of approximately 6.1 liters of ascitic fluid. Electronically signed by: Delfino Del Toro M.D. 06/11/2019 6:57 PM Study: Abdominal Doppler HISTORY: Cirrhosis. Ascites. FINDINGS: Minimal to mild residual ascites postparacentesis. Hepatic and portal venous systems are patent. The TIPS is patent. IMPRESSION: 1. The hepatic, portal, and TIPS are all patent.. 2. Minimal residual ascites post paracentesis. Electronically signed by: Cuong Israel M.D. 06/11/2019 7:19 PM ECG Data Attestation: I personally reviewed and interpreted this ECG as follows: Indication: abdominal pain Rate (beats per minute): 66 Rhythm: normal sinus Findings: + other (poor r-wave progression); no PVC and no ST elevation Blood Pressure Blood Pressure Findings: Low blood pressure MDM Narrative There is a mild pancytopenia, likely consistent with his liver disease. This is not a new finding. No worrisome coagulopathy. The ammonia level was mildly elevated, consistent with his liver disease. No evidence for renal failure. No concerning electrolyte abnormality. Lactic acid level was somewhat high at 2.8, this is likely consistent with dehydration, possibly infection. There was a slight elevation to the alk phos, no bilirubin elevation. Lipase was normal. Chest film showed some chronic findings, no pneumonia or CHF. EKG shows a sinus rhythm, no acute ischemia. Cardiac enzyme testing x1 is not consistent with acute cardiac injury. Abdominal CT scan does not show any incarcerated bowel, the hernia appears to be fluid-filled. No bowel obstruction seen, ascites was noted. A paracentesis was performed, about 6 L of fluid was obtained, the fluid was sent for analysis. Duplex ultrasound shows the TIPS to be patent. On exam, the patient was not febrile, he did not seem toxic. There was no peritonitis. The patient did have the paracentesis performed as noted above. I discussed his case with the on-call GI physician group. The patient deserves hospitalization and treatment for presumed spontaneous bacterial peritonitis. He does not require any emergent surgical intervention based on the CT results. I talked to the patient. Patient was given IV saline for hydration. He received IV albumin to help prevent reaccumulation of the ascitic fluid. Patient is aware of all his findings and the need for the hospitalization. Case management has been involved. The on-call hospitalist was consulted. Impression & Plan Diffuse abdominal pain, Cirrhosis, Ascites, Incarcerated umbilical hernia Discharge Plan Visit Data Chief Complaint: Referred by Doctor Stated Complaint: REFERRED BY DOCTOR ED Provider: Estuardo Lezama Discharge Problem: Diffuse abdominal pain, Cirrhosis, Ascites, Incarcerated umbilical hernia Patient Disposition: Being Evaluated by Hospitalist Forms Stand Alone Forms: [facility] Prescriptions Prescriptions: No Action artificial tears(hypromellose) 0.3 % gel 1 drops OP QID PRN (Reason: dryness) RF: 0 ketoconazole 2 % cream 1 appln TOP DAILY RF: 0 sodium chloride [[place] Saline] 0.65 % aerosol,spray 2 sprays INTNAS QID PRN (Reason: dryness) RF: 0 metformin 500 mg Tablet 500 mg PO QAM RF: 0 tamsulosin [Flomax] 0.4 mg Capsule 0.4 mg PO QAM RF: 0 ranitidine HCl 150 mg Tablet 150 mg PO BID PRN (Reason: Nausea) RF: 0 spironolactone 50 mg Tablet 50 mg PO QAM RF: 0 Prilosec OTC 20 mg Tablet,Delayed Release (Dr/Ec) 20 mg PO BID RF: 0 Centrum Silver 400-250 mcg Tablet,Chewable 1 tab PO QAM RF: 0 furosemide 20 mg tablet 20 mg PO QAM RF: 0 cholecalciferol (vitamin D3) [Vitamin D3] 2,000 unit tablet 2,000 units PO QAM RF: 0 polyethylene glycol 3350 [Miralax] 17 gram/dose Powder 17 g PO BID PRN (Reason: Constipation) RF: 0 lactulose 20 gram/30 mL Solution 30 g PO TID Qty: 0 RF: 0 fluticasone propionate [Flonase Allergy Relief] 50 mcg/actuation [place],Suspension 1 spray INTRANASAL BID RF: 0 loratadine 10 mg Tablet 10 mg PO DAILY PRN (Reason: Allergic Symptoms) RF: 0 Referrals Referrals: Renard Das MD [Primary Care Provider] - Discharge Problem: Cirrhosis Qualifiers: Hepatic cirrhosis type: unspecified hepatic cirrhosis Ascites presence: with ascites Qualified Code(s): K74.60 - Unspecified cirrhosis of liver Ascites Qualifiers: Ascites type: other type Qualified Code(s): R18.8 - Other ascites The scribe's documentation has been prepared under my direction and personally reviewed by me in its entirety. I confirm that the note above accurately re flects all work, treatment, procedures, and medical decision making performed by me.
--- NOTE | 2019-06-11 18:58 | Ultrasound Report ---
PARACENTESIS UNDER ULTRASOUND GUIDANCE CLINICAL HISTORY: ascites COMPARISON STUDY: No previous studies for comparison. FINDINGS: The risks, benefits, and alternatives to the procedure were discussed with the patient. Mavisi galindo informed consent was obtained. Following real-time ultrasound localization, the skin was prepped and draped. Following local anesthesia with Xylocaine, the sheath paracentesis needle was inserted a nd approximately 6.1 liters of straw-colored fluid was removed by vacuum suction. 1 L of fluid was se nt to the lab for analysis. The patient tolerated the procedure well and left the department in satisfactory condition. IMPRESSION: Successful ultrasound-guided paracentesis with removal of approximately 6.1 liters of asc itic fluid. Electronically signed by: Delfino Del Toro M.D. 06/11/2019 6:57 PM
--- NOTE | 2019-06-11 19:20 | Ultrasound Report ---
Study: Abdominal Doppler HISTORY: Cirrhosis. Ascites. FINDINGS: Minimal to mild residual ascites postparacentesis. Hepatic and portal venous systems are pa tent. The TIPS is patent. IMPRESSION: 1. The hepatic, portal, and TIPS are all patent.. 2. Minimal residual ascites post paracentesis. Electronically signed by: Cuong Israel M.D. 06/11/2019 7:19 PM
[2019-06-11 20:05] LABS: Albumin Peritoneal Fluid 1.1 g/dl; Total Protein Peritoneal Fluid 2.2 g/dl
[2019-06-11 20:08] LABS: Appearance Peritoneal Fluid CLEAR; Color Peritoneal Fluid YELLOW; Mononuclear WBC Peritoneal 87.5 %; Polynuclear WBC Peritoneal 12.5 %; RBC Peritoneal Fluid (A) < 3000 /uL; WBC Peritoneal Fluid (A) 71 /ul (0-300)
--- NOTE | 2019-06-11 20:08 | History & Physical Report ---
Date of Service June 11, 2019 Assessment & Plan (1) Diffuse abdominal pain: Has been complaining of increasing abdominal girth for the last 1 week and pain associated with it Was evaluated in GI clinic and was sent in to rule out obstructing umbilical hernia and SBP He is a status post paracentesis of 6.1 L with or administration of albumin Blood pressure remains stable the lower side of systolic 90s Patient does feel better but he still has abdominal pain Surgery consulted for possible obstructing umbilical hernia (2) S/P TIPS (transjugular intrahepatic portosystemic shunt): He is a status post tips procedure in February of this year With increasing abdominal girth and increasing edema, blockage of the tips was considered Ultrasound of the hips did not show any blockages GI consulted (3) Ascites: As above Fluid cytology and Gram stain are pending to rule out SBP EKG is noted to be low voltage Need to rule out pericardial effusion and/or right heart failure with increasing ascites and increasing edema following TIPS (4) Incarcerated umbilical hernia: No umbilical hernia size seems to be increased His forearm with tender to palpate and cannot be reduced Ascitic fluid was noted in umbilical hernia but no intestinal obstruction was noted Will get surgical evaluation (5) Paroxysmal A-fib: Heart rate is controlled Not on anticoagulation (6) Depression: Stable (7) Sleep apnea: Not on any CPAP and advised (8) Diabetes mellitus, type II: Hold metformin We will put him on sliding scale insulin DVT prophylaxis Subcu heparin for now, platelet count is more than 100,000 History of Present Illness Chief Complaint: Increasing ascites with possible expected umbilical hernia Primary Care Provider: Renard Das MD He is a 79-year-old male with significant past medical history of cirrhosis with ascites and is status post tips procedure in February of this year, paroxysmal atrial fibrillation, diabetes type 2, hypertension, GERD and chronic kidney disease stage III apparently was sent in from GI clinic with increasing abdom inal girth, increasing edema and possible obstructed umbilical hernia. He is a status post TIPS procedure for recurrent ascites secondary to cirrhosis in February of this year and he was evaluated by urologist md last week without any significant abnormalities except increasing leg swelling and for that he has been taking extra dose of Lasix. He complains to have increasing abdominal girth and pain which is intermittent and increasing leg swelling for the last 1 week. Denies any shortness of breath, any fever and/or chills, any nausea or vomiting, any problem with urine and his bowel has been moving about 2-3 times a day. No confusion He underwent paracentesis of more than 6 L of fluid and given albumin infusion after the procedure and the fluid was sent for test to rule out SBP. He was not ed to have very low voltage EKG and given the tips procedure and with ongoing edema and ascites we will get an echocardiogram to rule out any pericardial effusion and/or right heart failure. Allergies Allergy/AdvReac Type Severity Reaction Status Date / Time No Known Allergies Allergy Verified 06/11/19 15:51 Home Medications Home Medications Medication Instructions Recorded Confirmed Type Centrum Silver 1 tab PO QAM 12/21/18 06/11/19 History Prilosec OTC 20 mg PO BID 12/21/18 06/11/19 History metformin 500 mg PO QAM 12/21/18 06/11/19 History ranitidine HCl 150 mg PO BID PRN 12/21/18 06/11/19 History spironolactone 50 mg PO QAM 12/21/18 06/11/19 History tamsulosin [Flomax] 0.4 mg PO QAM 12/21/18 06/11/19 History fluticasone propionate [Flonase 1 spray INTRANASAL BID 01/07/19 06/11/19 History Allergy Relief] loratadine 10 mg PO DAILY PRN 01/07/19 06/11/19 History polyethylene glycol 3350 [Miralax] 17 g PO BID PRN 01/27/19 06/11/19 History artificial tears (hypromellose) 1 drops OP QID PRN 02/17/19 06/11/19 History 0.3 % eye gel cholecalciferol (vitamin D3) 2,000 2,000 units PO QAM tab 02/17/19 06/11/19 History unit tablet furosemide 20 mg tablet 20 mg PO QAM tab 02/17/19 06/11/19 History ketoconazole 2 % topical cream 1 appln TOP DAILY 02/17/19 06/11/19 History sodium chloride 0.65 % nasal spray 2 sprays INTNAS QID PRN 02/17/19 06/11/19 History aerosol lactulose 30 g PO TID #0 ml 04/03/19 06/11/19 Rx Past Med/Surg History Medical History Paroxysmal A-fib (Chronic) Sleep apnea (Chronic) NO DEVICE USED Depression (Chronic) History of abdominal paracentesis (Resolved) 02/08/19, 11/2018 Cirrhosis (Chronic) Ascites (Chronic) 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 Elevated LFTs suspected to be from DILI vs AIH. LFTs normalized now so immunosuppression use was deferred. 4L fluid drained 12/15. Abdomen noticeably distended at [facility] appt on 12/31/18. Diabetes mellitus, type II (Chronic) HTN (hypertension) (Chronic) No current meds - currently controlled HLD (hyperlipidemia) (Chronic) PVCs (premature ventricular contractions) (Chronic) BPH (benign prostatic hyperplasia) (Chronic) GERD (gastroesophageal reflux disease) (Chronic) Spontaneous bacterial peritonitis (Resolved) Jun 2018. Pt was admitted for a fib RVR and ascites, fluid drawn from abdomen showed SBP. Treated with ABX and discharged. Following now with [facility] ([facility]) and Dr. Monreal (Hepatology). Surgical History History of eye surgery (Chronic) 2008 - TEAR DUCT OPENED UP History of adenoidectomy (Chronic) 01/11/19 History of cataract surgery (Chronic) RT/LEFT History of tonsillectomy (Chronic) 01/11/19 History of tooth extraction (Chronic) 01/11/19 History of colonoscopy (Chronic) 01/30/16 History of esophagogastroduodenoscopy (EGD) (Chronic) 11/07/2010, 06/23/18 - with endoscopic US History of liver biopsy (Chronic) 05/2018 History of laryngoscopy (Chronic) 01/11/19 - with biopsies + right modified radical cervical lymphadenectomy History of ERCP (Chronic) 05/12/18 - stent removed History of intraocular lens implant (Chronic) 2008 - Bilateral History of hernia repair (Chronic) 04/02/18 S/P TIPS (transjugular intrahepatic portosystemic shunt) (Chronic) 03/[place] [facility] [place] [facility] [place] chole[place] (Chronic) 04/02/2018. Yan 2, grade 1 view. 8.0 ETT. Family History Mother , Passed age 49 from Leukemia No problems noted. Sister , Passed age 6 months of pneumonia No problems noted. Brother , Passed in late 50's of [place] No problems noted. Sister , Passed in 60's of diabetic complications No problems noted. Sister No problems noted. Daughter Breast cancer, Onset Age: 40 Stage III - Currently doing well Brother No problems noted. Brother No problems noted. 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 Feels Safe at Home: Yes Smoking Status: Never smoker Tobacco Type: smokeless tobacco ; packs per day: 0.5 ; Second Hand Exposure: No ; Hx Alcohol Use: No Hx Substance Use: No Childhood Exposure to Second-Hand Smoke: Yes caffeine: Yes (3 cups of coffee/week with tea inbetween ) during the past year weight has: decreased > 10 lbs Dental Care, Regularly: No Review of Systems Review of Systems: All systems reviewed & are unremarkable except as noted in HPI & below Physical Exam Physical Exam: Lying in bed comfortably, very thin build Constitutional: + ill appearing, + thin and + cachectic; no acute distress Eyes: PERRL, conjunctivae normal, anicteric sclerae ENMT: external ear and nose normal, oropharynx normal Neck: trachea midline, no thyromegaly Respiratory: no respiratory distress Cardiovascular: Rate/Rhythm: regular rate and regular rhythm Gastrointestinal (Abdomen): Inspection/Auscultation: normal bowel sounds; abdomen not distended Percussion/Palpation: + abdomen tender and + ascites (Status post paracentesis); no guarding As umbilical hernia which is not reducible. Palpably tender Neurologic: moves all extremities; no focal motor deficits Alert, awake and oriented x3 Lymphatic: no cervical or axillary lymphadenopathy Results & Data Vital Signs (Past 12 Hours) Vital Signs Temp Pulse Pulse Resp BP BP Pulse Ox 06/11/19 19:35 69 14 105/61 99 06/11/19 19:30 65 17 99 06/11/19 16:28 66 17 96/67 L 94 06/11/19 15:49 98 06/11/19 15:01 36.6 C 71 18 94/58 L 100 Laboratory Results Short CBC 06/11/19 Range/Units 15:45 WBC 3.59 L (4.8-10.8) K/uL Hgb 10.0 L (14.0-18.0) g/dL Hct 28.6 L (42-52) % Plt Count 109 L (130-400) K/uL BMP 06/11/19 15:45 Sodium 141 Potassium 3.5 Chloride 113 H Carbon Dioxide 21 BUN 11 Creatinine 0.86 Glucose 91 Calcium 7.7 L Cardiac Enzymes 06/11/19 06/11/19 Range/Units 15:45 15:45 Troponin I < 0.015 Cancelled (0-0.045) ng/ml Liver Function 06/11/19 Range/Units 15:45 Total Bilirubin 0.8 (0.2-1) mg/dl AST 34 (15-37) U/L ALT 28 (12-78) U/L Alkaline Phosphatase 128 H (45-117) U/L Albumin 2.1 L (3.4-5.0) gm/dl Medications Administered Current Inpatient Medications Heparin Sodium (Porcine) (Heparin Sodium (Porcine)) 5,000 units SQ Q12 EARLENE Stop: 07/11/19 20:59 Albumin Human (Albumin 25%) 50 mls @ 50 mls/hr IV Q1H EARLENE Stop: 06/11/19 21:14 Code Status & VTE Plan VTE Prophylaxis Plan VTE Prophylaxis will be ordered: Yes (1) Ascites Ascites type: other type Qualified Code(s): R18.8 - Other ascites
[2019-06-11] MEDS ORDERED: SODIUM CHLORIDE 0.65% NA SOLN 45 ML (OCEAN) PRN (21:26)
[2019-06-11] MEDS ORDERED: LORATADINE 10 MG TAB PO PRN (21:26)
[2019-06-11] MEDS ORDERED: POLYETHYLENE (MIRALAX) 17 GM PACK PO PRN (21:26)
[2019-06-11] MEDS ORDERED: ARTIFICIAL TEARS OP PRN (21:45)
[2019-06-11] MEDS: ALBUMIN 25% 50 ML IV SCH ×2 (22:13→23:19)
[2019-06-11] MEDS: HEPARIN SOD 5,000 UNIT/0.5 ML VIAL SQ SCH (22:14)
[2019-06-11] MEDS: PANTOprazole 40 MG TAB PO SCH (23:20)
[2019-06-11] MEDS: FLUTICASONE PROPIONATE NA SPR 16 GM BTL SCH (23:21)
[2019-06-11] MEDS: LACTULOSE SYRUP 30 GM/45 ML UDP PO SCH (23:21)
[2019-06-12] MEDS: ALBUMIN 25% 50 ML IV SCH ×2 (00:36)
[2019-06-12 07:17] LABS: Appearance Urine Clear (Clear); Bilirubin Urine Negative (Negative); Blood Urine Negative (Negative); Color Urine Yellow; Glucose Urine UA Negative (Negative); Ketones Urine Negative (Negative); Leukocyte Esterase Urine Negative (Negative); Nitrite Urine Negative (Negative); Protein Urine Negative (Negative); Specific Gravity Urine 1.015 (1.000-1.030); Urobilinogen Urine Negative (Negative)
[2019-06-12] MEDS: PANTOprazole 40 MG TAB PO SCH (08:32)
[2019-06-12] MEDS: LACTULOSE SYRUP 30 GM/45 ML UDP PO SCH (08:32)
[2019-06-12] MEDS: FLUTICASONE PROPIONATE NA SPR 16 GM BTL SCH (08:33)
[2019-06-12] MEDS: HEPARIN SOD 5,000 UNIT/0.5 ML VIAL SQ SCH (08:34)
[2019-06-12] MEDS ORDERED: FUROSEMIDE 20 MG TAB PO SCH (09:00)
[2019-06-12] MEDS ORDERED: KETOCONAZOLE 2% CR 15 GM TUBE EXT SCH (09:00)
[2019-06-12] MEDS ORDERED: CHOLECALCIFEROL 1,000 UNITS TAB PO SCH (09:00)
[2019-06-12] MEDS ORDERED: TAMSULOSIN HCL 0.4 MG CAP PO SCH (09:00)
[2019-06-12] MEDS ORDERED: SPIRONOLACTONE 25 MG TAB PO SCH (09:00)
[2019-06-12] MEDS ORDERED: CEROVITE ADV FORMULA TAB PO SCH (09:00)
--- NOTE | 2019-06-12 09:25 | Gastrointestinal Consultation ---
Date of Consultation June 12, 2019 Assessment & Plan (1) Cirrhosis: (2) Ascites: TIPS is patent, and no evidence of SBP on ascitic fluid studies Continue Lasix 20 mg by mouth daily Continue Spironolactone 50 mg by mouth daily He did have a prior episode of SBP in June 2018, and I will defer to his primary GI team regarding SBP prophylaxis Recommend 2 g Na reduced diet (3) Diffuse abdominal pain: (4) Incarcerated umbilical hernia: (5) Hepatic encephalopathy: Continue Lactulose 30 g PO TID to titrate daily for 3 BM's Patient was previously on Xifaxan 550 mg by mouth twice daily. He is not sure why he is not on this at present. I will discuss with [facility] for further information. Continue to followup with [facility] and [facility] Hepatology as an outpatient, for surveillance exams and further care. History of Present Illness Reason for Consultation: Cirrhosis with Ascites, questionable blocked TIPS Attending Physician: Vasyl Han MD History of Present Illness Michelet Nelson is a 79 yo CM who presented to the ER yesterday, after he was seen by CHRISTOFER Everett of [facility]. He has a known history of Cirrhosis and ascites, and underwent TIPS placement in February 2019. He was last seen by his translator last week, per the hospital records, and was noted to have some increased LE edema, and was taking an extra dose of Lasix 20 mg daily, in addition to his normal regimen of Aldactone 50 mg daily and Lasix 20 mg daily. He was noted on exam by CHRISTOFER Mitchell to have increased abdominal girth, increased LE edema, increased weight of approximately 15 lbs, and a non-reducible umbilical hernia. He was instructed to go to the ER for further evaluation. Upon arrival to the ER, he was noted to have tense ascites, confirmed by US. I spoke with Dr. Lezama in the ER, and advised a diagnostic/therapeutic paracentesis, to evaluate for SBP, as well as an evaluation of TIPS patency by US dopplers. The patient subsequently had 6.1 liters of ascitic fluid removed, without evidence of SBP, and was noted to have patent hepatic vasculature, as well as a patent TIPS. He was subsequently admitted. At the time I saw the patient this AM, he stated that he was feeling much better. He ate his breakfast this AM without difficulty, and denied any abdominal pain, nausea, vomiting, diarrhea, hematemesis, melena or hematochezia. He further denied any fevers, chills, chest pain, SOB, cough, dysuria or hematuria. Nursing reported no issues overnight. Allergies Allergy/AdvReac Type Severity Reaction Status Date / Time No Known Allergies Allergy Verified 06/11/19 15:51 Home Medications Home Medications Medication Instructions Recorded Confirmed Type Centrum Silver 1 tab PO QAM 12/21/18 06/11/19 History Prilosec OTC 20 mg PO BID 12/21/18 06/11/19 History metformin 500 mg PO QAM 12/21/18 06/11/19 History ranitidine HCl 150 mg PO BID PRN 12/21/18 06/11/19 History spironolactone 50 mg PO QAM 12/21/18 06/11/19 History tamsulosin [Flomax] 0.4 mg PO QAM 12/21/18 06/11/19 History fluticasone propionate [Flonase 1 spray INTRANASAL BID 01/07/19 06/11/19 History Allergy Relief] loratadine 10 mg PO DAILY PRN 01/07/19 06/11/19 History polyethylene glycol 3350 [Miralax] 17 g PO BID PRN 01/27/19 06/11/19 History artificial tears (hypromellose) 1 drops OP QID PRN 02/17/19 06/11/19 History 0.3 % eye gel cholecalciferol (vitamin D3) 2,000 2,000 units PO QAM tab 02/17/19 06/11/19 History unit tablet furosemide 20 mg tablet 20 mg PO QAM tab 02/17/19 06/11/19 History ketoconazole 2 % topical cream 1 appln TOP DAILY 02/17/19 06/11/19 History sodium chloride 0.65 % nasal spray 2 sprays INTNAS QID PRN 02/17/19 06/11/19 History aerosol lactulose 30 g PO TID #0 ml 04/03/19 06/11/19 Rx Patient History Medical History Paroxysmal A-fib (Chronic) Sleep apnea (Chronic) NO DEVICE USED Depression (Chronic) History of abdominal paracentesis (Resolved) 02/08/19, 11/2018 Cirrhosis (Chronic) Ascites (Chronic) 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 Elevated LFTs suspected to be from DILI vs AIH. LFTs normalized now so immunosuppression use was deferred. 4L fluid drained 12/15. Abdomen noticeably distended at [facility] appt on 12/31/18. Diabetes mellitus, type II (Chronic) HTN (hypertension) (Chronic) No current meds - currently controlled HLD (hyperlipidemia) (Chronic) PVCs (premature ventricular contractions) (Chronic) BPH (benign prostatic hyperplasia) (Chronic) GERD (gastroesophageal reflux disease) (Chronic) Spontaneous bacterial peritonitis (Resolved) Jun 2018. Pt was admitted for a fib RVR and ascites, fluid drawn from abdomen showed SBP. Treated with ABX and discharged. Following now with [facility] ([facility]ette [facility]) and Dr. Monreal (Hepatology). Surgical History History of eye surgery (Chronic) 2008 - TEAR DUCT OPENED UP History of adenoidectomy (Chronic) 01/11/19 History of cataract surgery (Chronic) RT/LEFT History of tonsillectomy (Chronic) 01/11/19 History of tooth extraction (Chronic) 01/11/19 History of colonoscopy (Chronic) 01/30/16 History of esophagogastroduodenoscopy (EGD) (Chronic) 11/07/2010, 06/23/18 - with endoscopic US History of liver biopsy (Chronic) 05/2018 History of laryngoscopy (Chronic) 01/11/19 - with biopsies + right modified radical cervical lymphadenectomy History of ERCP (Chronic) 05/12/18 - stent removed History of intraocular lens implant (Chronic) 2008 - Bilateral History of hernia repair (Chronic) 04/02/18 S/P TIPS (transjugular intrahepatic portosystemic shunt) (Chronic) 03/16/19 at [facility] [place] cholecystectomy (Chronic) 04/02/2018. Yan 2, grade 1 view. 8.0 ETT. Family History Mother , Passed age 49 from Leukemia No problems noted. Sister , Passed age 6 months of pneumonia No problems noted. Brother , Passed in late 50's of [place] No problems noted. Sister , Passed in 60's of diabetic complications No problems noted. Sister No problems noted. Daughter Breast cancer, Onset Age: 40 Stage III - Currently doing well Brother No problems noted. Brother No problems noted. 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 Other Information That Helps Us Care for You: No Feels Safe at Home: Yes Safety Concerns: Feels Safe At This Time Smoking Status: Former smoker Tobacco Type: smokeless tobacco ; packs per day: 0.5 ; Second Hand Exposure: No ; Hx Alcohol Use: No Hx Substance Use: No Childhood Exposure to Second-Hand Smoke: Yes caffeine: Yes (3 cups of coffee/week with tea inbetween ) during the past year weight has: decreased > 10 lbs Dental Care, Regularly: No Review of Systems Review of Systems: All systems reviewed & are unremarkable except as noted in HPI & below Physical Exam Constitutional: + ill appearing, + thin and + frail appearing Eyes: + anicteric sclerae Respiratory: normal respiratory effort Auscultation: + diminished lung sounds Cardiovascular: RRR, no murmur, no edema Gastrointestinal (Abdomen): Inspection/Auscultation: + abdomen distended and normal bowel sounds Percussion/Palpation: abdomen soft; abdomen nontender, no guarding and abdomen not rigid Non-reducible umbilical hernia noted Skin: no rashes, warm and dry Psychiatric: Orientation: alert and oriented x 3 Eye Contact: good eye contact Results & Data Vital Signs (Past 12 Hours) Vital Signs Temp Pulse Pulse Resp BP BP Pulse Ox 06/12/19 07:08 36.5 C 60 16 93/57 L 96 06/12/19 04:00 36.7 C 60 16 89/52 L 93 06/12/19 02:23 63 85/53 L 86/41 L 06/12/19 00:21 69 16 89/46 L 06/11/19 23:34 67 06/11/19 23:21 60 16 92/52 L 06/11/19 22:43 36.4 C L 67 18 75/42 L 93 PG Care Time/CCT Total # of Minutes Spent Total Time Spent with Patient: Total time spent is greater than 50% in coordination of care (as documented) at patient's floor/unit and/or counseling patient: (1) Cirrhosis Ascites presence: with ascites Hepatic cirrhosis type: unspecified hepatic cirrhosis Qualified Code(s): K74.60 - Unspecified cirrhosis of liver; R18.8 - Other ascites (2) Ascites Ascites type: other type Qualified Code(s): R18.8 - Other ascites
--- NOTE | 2019-06-12 09:52 | Surgery Consultation ---
Date of Consultation June 12, 2019 Assessment & Plan (1) Incisional hernia of anterior abdominal wall without obstruction or gangrene: no incarceration clinically or on CT scan of the port site incisional hernia non-tender pt very poor/high risk surgical candidate-surgery only for last resort nursing will place and abdominal binder which may help him some at home no acute surgical indication. will sign off. please call if needed. History of Present Illness Attending Physician: Vasyl Han MD History of Present Illness pt admitted with abdominal pain. has known ascites and is s/p TIPS procedure earlier this year. recent paracentesis with cx's pending. CT shows ascites and an UH with fluid within it. Allergies Allergy/AdvReac Type Severity Reaction Status Date / Time No Known Allergies Allergy Verified 06/11/19 15:51 Home Medications Home Medications Medication Instructions Recorded Confirmed Type Centrum Silver 1 tab PO QAM 12/21/18 06/11/19 History Prilosec OTC 20 mg PO BID 12/21/18 06/11/19 History metformin 500 mg PO QAM 12/21/18 06/11/19 History ranitidine HCl 150 mg PO BID PRN 12/21/18 06/11/19 History spironolactone 50 mg PO QAM 12/21/18 06/11/19 History tamsulosin [Flomax] 0.4 mg PO QAM 12/21/18 06/11/19 History fluticasone propionate [Flonase 1 spray INTRANASAL BID 01/07/19 06/11/19 History Allergy Relief] loratadine 10 mg PO DAILY PRN 01/07/19 06/11/19 History polyethylene glycol 3350 [Miralax] 17 g PO BID PRN 01/27/19 06/11/19 History artificial tears (hypromellose) 1 drops OP QID PRN 02/17/19 06/11/19 History 0.3 % eye gel cholecalciferol (vitamin D3) 2,000 2,000 units PO QAM tab 02/17/19 06/11/19 History unit tablet furosemide 20 mg tablet 20 mg PO QAM tab 02/17/19 06/11/19 History ketoconazole 2 % topical cream 1 appln TOP DAILY 02/17/19 06/11/19 History sodium chloride 0.65 % nasal spray 2 sprays INTNAS QID PRN 02/17/19 06/11/19 History aerosol lactulose 30 g PO TID #0 ml 04/03/19 06/11/19 Rx Patient History Medical History Paroxysmal A-fib (Chronic) Sleep apnea (Chronic) NO DEVICE USED Depression (Chronic) History of abdominal paracentesis (Resolved) 02/08/19, 11/2018 Cirrhosis (Chronic) Ascites (Chronic) 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 Elevated LFTs suspected to be from DILI vs AIH. LFTs normalized now so immunosuppression use was deferred. 4L fluid drained 12/15. Abdomen noticeably distended at [facility] appt on 12/31/18. Diabetes mellitus, type II (Chronic) HTN (hypertension) (Chronic) No current meds - currently controlled HLD (hyperlipidemia) (Chronic) PVCs (premature ventricular contractions) (Chronic) BPH (benign prostatic hyperplasia) (Chronic) GERD (gastroesophageal reflux disease) (Chronic) Spontaneous bacterial peritonitis (Resolved) Jun 2018. Pt was admitted for a fib RVR and ascites, fluid drawn from abdomen showed SBP. Treated with ABX and discharged. Following now with [facility] ([facility]) and Dr. Monreal (Hepatology). Surgical History History of eye surgery (Chronic) 2008 - TEAR DUCT OPENED UP History of adenoidectomy (Chronic) 01/11/19 History of cataract surgery (Chronic) RT/LEFT History of tonsillectomy (Chronic) 01/11/19 History of tooth extraction (Chronic) 01/11/19 History of colonoscopy (Chronic) 01/30/16 History of esophagogastroduodenoscopy (EGD) (Chronic) 11/07/2010, 06/23/18 - with endoscopic US History of liver biopsy (Chronic) 05/2018 History of laryngoscopy (Chronic) 01/11/19 - with biopsies + right modified radical cervical lymphadenectomy History of ERCP (Chronic) 05/12/18 - stent removed History of intraocular lens implant (Chronic) 2008 - Bilateral History of hernia repair (Chronic) 04/02/18 S/P TIPS (transjugular intrahepatic portosystemic shunt) (Chronic) 03/16/19 at [facility] [place] cholecystectomy (Chronic) 04/02/2018. Yan 2, grade 1 view. 8.0 ETT. Family History Mother , Passed age 49 from Leukemia No problems noted. Sister , Passed age 6 months of pneumonia No problems noted. Brother , Passed in late 50's of [place] No problems noted. Sister , Passed in 60's of diabetic complications No problems noted. Sister No problems noted. Daughter Breast cancer, Onset Age: 40 Stage III - Currently doing well Brother No problems noted. Brother No problems noted. 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 Other Information That Helps Us Care for You: No Feels Safe at Home: Yes Safety Concerns: Feels Safe At This Time Smoking Status: Former smoker Tobacco Type: smokeless tobacco ; packs per day: 0.5 ; Second Hand Exposure: No ; Hx Alcohol Use: No Hx Substance Use: No Childhood Exposure to Second-Hand Smoke: Yes caffeine: Yes (3 cups of coffee/week with tea inbetween ) during the past year weight has: decreased > 10 lbs Dental Care, Regularly: No Review of Systems Review of Systems: All systems reviewed & are unremarkable except as noted in HPI & below Physical Exam Physical Exam: alert/oriented. nad. denies pain currently. Heent: Pearla. eomi abd: soft. +supra-umbilical hernia. fluid filled/no bowel. non-reducible. Results & Data Vital Signs (Past 12 Hours) Vital Signs Temp Pulse Pulse Resp BP BP Pulse Ox 06/12/19 07:08 36.5 C 60 16 93/57 L 96 06/12/19 04:00 36.7 C 60 16 89/52 L 93 06/12/19 02:23 63 85/53 L 86/41 L 06/12/19 00:21 69 16 89/46 L 06/11/19 23:34 67 06/11/19 23:21 60 16 92/52 L 06/11/19 22:43 36.4 C L 67 18 75/42 L 93 PG Care Time/CCT Total # of Minutes Spent Total Time Spent with Patient: Total time spent is greater than 50% in coordination of care (as documented) at patient's floor/unit and/or counseling patient:
--- NOTE | 2019-06-12 10:08 | Hospitalist Progress Note ---
Date of Service June 12, 2019 Assessment & Plan (1) Diffuse abdominal pain: per admitting service notes: Has been complaining of increasing abdominal girth for the last 1 week and pain associated with it Was evaluated in GI clinic and was sent in to rule out obstructing umbilical hernia and SBP s/p Status post paracentesis With drainage of 6 L Ascitic fluid Cultures: Pending Evaluated by gastroenterology service, Dr. Cali Commend resuming usual medication: Lasix, spironolactone, rifaximin, lactulose, 2 g sodium diet Patient reported resolution of abdominal pain after paracentesis General surgeon Dr. Shafer consulted for possible pain secondary to umbilical hernia NoSurgical intervention recommended at this time, recommend abdominal binder use Follow-up as an outpatient (2) S/P TIPS (transjugular intrahepatic portosystemic shunt): IMPRESSION: 1. The hepatic, portal, and TIPS are all patent.. 2. Minimal residual ascites post paracentesis. Portal vein ultrasound: IMPRESSION: 1. The hepatic, portal, and TIPS are all patent.. 2. Minimal residual ascites post paracentesis. (3) Ascites: As above Fluid cytology and Gram stain are pending, EKG is noted to be low voltage Need to rule out pericardial effusion and/or right heart failure with increasing ascites and increasing edema following TIPS, Echo pending (4) Incarcerated umbilical hernia: General surgeon Dr. Shafer consulted for possible pain secondary to umbilical hernia NoSurgical intervention recommended at this time, recommend abdominal binder use Follow-up as an outpatient (5) Paroxysmal A-fib: Heart rate is controlled Not on anticoagulation (6) Depression: Stable (7) Sleep apnea: Not on any CPAP and advised (8) Diabetes mellitus, type II: Resume metformin Discharge to home Follow-up with primary care physician in 1 week. Scheduling office closed at this time, patient will be called for the appointment. Follow-up with GI clinic as scheduled. Subjective ff up for abdominal pain seen resting in bed, comfortable states he feels fine overall abdominal pain has resolved no nausea/vomiting, fever/chills no chest pain, dyspnea, palpitations, dizziness no pain on the umbilical hernia site no other symptoms states he is ready and would like to be discharged today Review of Systems Review of Systems: All systems reviewed & are unremarkable except as noted in HPI & below Physical Exam Physical Exam: General- oriented x 3, not in distress, speaks in sentences with no effort or accessory muscle use Head- atraumatic Eyes- PERRL, EOMI, anicteric ENT- oropharynx clear Neck- supple, no JVD, no adenopathy, no thyromegaly; carotids +2/2, no bruits appreciated Lungs- clear to auscultation bilaterally, no rales/wheezes Heart- normal rate, regular rhythm; no murmur, no gallop, no rub appreciated Abdomen- normal bowel sounds, nondistended, soft, nontender, no masses or hepatosplenomegaly (+) umbilical hernia- no tenderness, not reducible Extremities- no pretibial edema, no calf tenderness; peripheral pulses intact Neuro- alert, oriented x 3; CN 2-12 grossly intact except for hearing impairment; motor 5/5 bilaterally;sensation 100% on all extremities; no other gross focal neurologic deficits Skin- warm & dry Results & Data Vital Signs (Past 12 Hours) Vital Signs Temp Pulse Pulse Resp BP BP Pulse Ox 06/12/19 07:08 36.5 C 60 16 93/57 L 96 06/12/19 04:00 36.7 C 60 16 89/52 L 93 06/12/19 02:23 63 85/53 L 86/41 L 06/12/19 00:21 69 16 89/46 L 06/11/19 23:34 67 06/11/19 23:21 60 16 92/52 L 06/11/19 22:43 36.4 C L 67 18 75/42 L 93 Laboratory Results Laboratory Results - last 24 hr 06/11/19 06/11/19 06/11/19 15:45 15:45 15:45 WBC 3.59 L RBC 3.11 L Hgb 10.0 L Hct 28.6 L MCV 92.0 MCH 32.2 MCHC 35.0 RDW Std Deviation 58.2 H RDW Coeff of Scott 17.4 H Plt Count 109 L MPV 8.9 Immature Gran % (Auto) 0.8 Neut % (Auto) 67.2 Lymph % (Auto) 18.4 [place] % (Auto) 9.7 Eos % (Auto) 3.3 Baso % (Auto) 0.6 Immature Gran # (Auto) 0.03 H Neut # (Auto) 2.41 Lymph # (Auto) 0.66 L [place] # (Auto) 0.35 Eos # (Auto) 0.12 Baso # (Auto) 0.02 Acanthocytes (Spur) 1+ Schistocytes 1+ PT 11.9 INR 1.2 H APTT 29.5 PTT Ratio 1.1 Sodium Potassium Chloride Carbon Dioxide Anion Gap BUN Creatinine Est Cr Clr Drug Dosing Est GFR ( Amer) Est GFR (Non-Af Amer) BUN/Creatinine Ratio Glucose POC Glucose Lactate Calcium Magnesium Total Bilirubin AST ALT Alkaline Phosphatase Ammonia 37.0 H Troponin I Total Protein Albumin Globulin Albumin/Globulin Ratio Lipase Urine Color Urine Appearance Urine pH Ur Specific [place] Urine Protein Urine Glucose (UA) Urine Ketones Urine Blood Urine Nitrite Urine Bilirubin Urine Urobilinogen Ur Leukocyte Esterase Peritoneal Color Peritoneal Appearance Peritoneal WBC Peritoneal RBC Mononuclear WBCs % Polynuclear WBCs % Peritoneal Tot Protein Peritoneal Albumin 06/11/19 06/11/19 06/11/19 15:45 15:45 15:45 WBC RBC Hgb Hct MCV MCH MCHC RDW Std Deviation RDW Coeff of Scott Plt Count MPV Immature Gran % (Auto) Neut % (Auto) Lymph % (Auto) [place] % (Auto) Eos % (Auto) Baso % (Auto) Immature Gran # (Auto) Neut # (Auto) Lymph # (Auto) [place] # (Auto) Eos # (Auto) Baso # (Auto) Acanthocytes (Spur) Schistocytes PT INR APTT PTT Ratio Sodium 141 Potassium 3.5 Chloride 113 H Carbon Dioxide 21 Anion Gap 7.0 BUN 11 Creatinine 0.86 Est Cr Clr Drug Dosing 57.0 Est GFR ( Amer) 96.3 Est GFR (Non-Af Amer) 83.1 BUN/Creatinine Ratio 13.0 Glucose 91 POC Glucose Lactate Calcium 7.7 L Magnesium 1.9 Cancelled Total Bilirubin 0.8 AST 34 ALT 28 Alkaline Phosphatase 128 H Ammonia Troponin I < 0.015 Cancelled Total Protein 5.3 L Albumin 2.1 L Globulin 3.2 Albumin/Globulin Ratio 0.7 L Lipase 175 Urine Color Urine Appearance Urine pH Ur Specific [place] Urine Protein Urine Glucose (UA) Urine Ketones Urine Blood Urine Nitrite Urine Bilirubin Urine Urobilinogen Ur Leukocyte Esterase Peritoneal Color Peritoneal Appearance Peritoneal WBC Peritoneal RBC Mononuclear WBCs % Polynuclear WBCs % Peritoneal Tot Protein Peritoneal Albumin 06/11/19 06/11/19 06/12/19 16:41 Unknown 07:03 WBC RBC Hgb Hct MCV MCH MCHC RDW Std Deviation RDW Coeff of Scott Plt Count MPV Immature Gran % (Auto) Neut % (Auto) Lymph % (Auto) [place] % (Auto) Eos % (Auto) Baso % (Auto) Immature Gran # (Auto) Neut # (Auto) Lymph # (Auto) [place] # (Auto) Eos # (Auto) Baso # (Auto) Acanthocytes (Spur) Schistocytes PT INR APTT PTT Ratio Sodium Potassium Chloride Carbon Dioxide Anion Gap BUN Creatinine Est Cr Clr Drug Dosing Est GFR ( Amer) Est GFR (Non-Af Amer) BUN/Creatinine Ratio Glucose POC Glucose Lactate 2.8 H* Calcium Magnesium Total Bilirubin AST ALT Alkaline Phosphatase Ammonia Troponin I Total Protein Albumin Globulin Albumin/Globulin Ratio Lipase Urine Color Yellow Urine Appearance Clear Urine pH 5.0 Ur Specific [place] 1.015 Urine Protein Negative Urine Glucose (UA) Negative Urine Ketones Negative Urine Blood Negative Urine Nitrite Negative Urine Bilirubin Negative Urine Urobilinogen Negative Ur Leukocyte Esterase Negative Peritoneal Color YELLOW Peritoneal Appearance CLEAR Peritoneal WBC 71 Peritoneal RBC < 3000 Mononuclear WBCs % 87.5 Polynuclear WBCs % 12.5 Peritoneal Tot Protein 2.2 Peritoneal Albumin 1.1 06/12/19 07:17 WBC RBC Hgb Hct MCV MCH MCHC RDW Std Deviation RDW Coeff of Scott Plt Count MPV Immature Gran % (Auto) Neut % (Auto) Lymph % (Auto) [place] % (Auto) Eos % (Auto) Baso % (Auto) Immature Gran # (Auto) Neut # (Auto) Lymph # (Auto) [place] # (Auto) Eos # (Auto) Baso # (Auto) Acanthocytes (Spur) Schistocytes PT INR APTT PTT Ratio Sodium Potassium Chloride Carbon Dioxide Anion Gap BUN Creatinine Est Cr Clr Drug Dosing Est GFR ( Amer) Est GFR (Non-Af Amer) BUN/Creatinine Ratio Glucose POC Glucose 72 Lactate Calcium Magnesium Total Bilirubin AST ALT Alkaline Phosphatase Ammonia Troponin I Total Protein Albumin Globulin Albumin/Globulin Ratio Lipase Urine Color Urine Appearance Urine pH Ur Specific [place] Urine Protein Urine Glucose (UA) Urine Ketones Urine Blood Urine Nitrite Urine Bilirubin Urine Urobilinogen Ur Leukocyte Esterase Peritoneal Color Peritoneal Appearance Peritoneal WBC Peritoneal RBC Mononuclear WBCs % Polynuclear WBCs % Peritoneal Tot Protein Peritoneal Albumin (1) Ascites Ascites type: other type Qualified Code(s): R18.8 - Other ascites
[2019-06-12 11:27] VITALS: PULSE 58; TEMP 98.2; O2SAT 98
[2019-06-12 14:03] VITALS: BP 86/41
--- NOTE | 2019-06-12 15:53 | Discharge Summary ---
Date of Service June 12, 2019 Admission HPI Per Admitting Provider He is a 79-year-old male with significant past medical history of cirrhosis with ascites and is status post tips procedure in February of this year, paroxysmal atrial fibrillation, diabetes type 2, hypertension, GERD and chronic kidney disease stage III apparently was sent in from GI clinic with increasing abdominal girth, increasing edema and possible obstructed umbilical hernia. He is a status post TIPS procedure for recurrent ascites secondary to cirrhosis in February of this year and he was evaluated by metal sorter last week without any significant abnormalities except increasing leg swelling and for that he has bee n taking extra dose of Lasix. He complains to have increasing abdominal girth and pain which is intermittent and increasing leg swelling for the last 1 week. Denies any shortness of breath, any fever and/or chills, any nausea or vomiting, any problem with urine and his bowel has been moving about 2-3 times a day. No confusion He underwent paracentesis of more than 6 L of fluid and given albumin infusion after the procedure and the fluid was sent for test to rule out SBP. He was noted to have very low voltage EKG and given the tips procedure and with ongoing edema and ascites we will get an echocardiogram to rule out any pericardial effusion and/or right heart failure. Admission Exam Per Admitting Provider Physical Exam: Lying in bed comfortably, very thin build Constitutional: + ill appearing, + thin and + cachectic; no acute distress Eyes: PERRL, conjunctivae normal, anicteric sclerae ENMT: external ear and nose normal, oropharynx normal Neck: trachea midline, no thyromegaly Respiratory: no respiratory distress Cardiovascular: Rate/Rhythm: regular rate and regular rhythm Gastrointestinal (Abdomen): Inspection/Auscultation: normal bowel sounds; abdomen not distended Percussion/Palpation: + abdomen tender and + ascites (Status post paracentesis); no guarding As umbilical hernia which is not reducible. Palpably tender Neurologic: moves all extremities; no focal motor deficits Alert, awake and oriented x3 Lymphatic: no cervical or axillary lymphadenopathy Principal Diagnosis ABDOMINAL PAIN, LIKELY SECONDARY TO ASCITES Discharge Exam General- oriented x 3, not in distress, speaks in sentences with no effort or accessory muscle use Head- atraumatic Eyes- PERRL, EOMI, anicteric ENT- oropharynx clear Neck- supple, no JVD, no adenopathy, no thyromegaly; carotids +2/2, no bruits appreciated Lungs- clear to auscultation bilaterally, no rales/wheezes Heart- normal rate, regular rhythm; no murmur, no gallop, no rub appreciated Abdomen- normal bowel sounds, nondistended, soft, nontender, no masses or hepatosplenomegaly (+) umbilical hernia- no tenderness, not reducible Extremities- no pretibial edema, no calf tenderness; peripheral pulses intact Neuro- alert, oriented x 3; CN 2-12 grossly intact except for hearing impairment; motor 5/5 bilaterally;sensation 100% on all extremities; no other gross focal neurologic deficits Skin- warm & dry Discharge Data Allergies Allergy/AdvReac Type Severity Reaction Status Date / Time No Known Allergies Allergy Verified 06/11/19 15:51 Consultations 06/11/19 18:00 ED Decision to Admit Stat 06/11/19 19:44 Consult Gastroenterology Routine Consult General Surgery Routine Ordered Studies 06/11/19 15:20 CT abd pelvis wo con Stat CT DOSE: 494.98 mGy.cm FINDINGS: Lower chest: There are coronary artery calcifications present. There are trace bilateral pleural effusions with basilar atelectasis. There is ascitic fluid within a hiatal hernia sac Liver: The liver has a cirrhotic morphology. There is pneumobilia. A TIPS shunt catheter is visualized. Gallbladder: Surgically absent Spleen: At the upper limits of normal in size Pancreas: Unremarkable. Adrenal glands: Unremarkable. Kidneys: No renal, ureteral, or bladder calculi are visualized. There is a 3 cm left renal cyst. There is a 2.6 cm right renal cyst. Bowel: There is scattered stool throughout the colon. There are no transition zones indicate bowel obstruction. Peritoneum: There is a large volume of ascites. No free intraperitoneal air is visualized. There is ascitic fluid present within an umbilical hernia sac. Vasculature: The abdominal aorta is normal in course and caliber. Adenopathy: None. Pelvic viscera: The bladder, and pelvic viscera are unremarkable. Skeletal structures: There is generalized body wall edema IMPRESSION: 1. Examination limited due to the lack of intravenous and oral contrast, as well as generalized body wall edema and ascites. 2. Large volume of ascites 3. Persistent pneumobilia 4. Interval placement of a TIPS catheter 5. Generalized body wall edema 6. Ascitic fluid within an umbilical hernia sac 7. No renal, ureteral, or bladder calculi identified 8. No evidence of bowel obstruction. No evidence of free air 9. Cirrhotic morphology the liver 10. Bilateral renal cysts 11. Trace bilateral pleural effusions 06/11/19 17:15 US paracentesis abd w/image Stat PARACENTESIS UNDER ULTRASOUND GUIDANCE CLINICAL HISTORY: ascites COMPARISON STUDY: No previous studies for comparison. FINDINGS: The risks, benefits, and alternatives to the procedure were discussed with the patient. Written informed consent was obtained. Following real-time ultrasound localization, the skin was prepped and draped. Following local anesthesia with Xylocaine, the sheath paracentesis needle was inserted and a pproximately 6.1 liters of straw-colored fluid was removed by vacuum suction. 1 L of fluid was sent to the lab for analysis. The patient tolerated the procedure well and left the department in satisfactory condition. IMPRESSION: Successful ultrasound-guided paracentesis with removal of approximately 6.1 liters of ascitic fluid. 06/11/19 17:19 US duplex portal hepatic veins Stat Study: Abdominal Doppler HISTORY: Cirrhosis. Ascites. FINDINGS: Minimal to mild residual ascites postparacentesis. Hepatic and portal venous systems are patent. The TIPS is patent. IMPRESSION: 1. The hepatic, portal, and TIPS are all patent.. 2. Minimal residual ascites post paracentesis. Hospital Course (1) Diffuse abdominal pain: likely secondary to Large Volume Ascites per admitting service notes: Has been complaining of increasing abdominal girth for the last 1 week and pain associated with it Was evaluated in GI clinic and was sent in to rule out obstructing umbilical hernia and SBP s/p Status post paracentesis With drainage of 6 L Ascitic fluid Cultures: Pending Evaluated by gastroenterology service, Dr. Cali Recommend resuming usual medication: Lasix, spironolactone, rifaximin, lactulose, 2 g sodium diet Patient reported resolution of abdominal pain after paracentesis General surgeon Dr. 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 The hepatic, portal, and TIPS are all patent.. 2. Minimal residual ascites post paracentesis. (3) Ascites: As above Fluid cytology and Gram stain are pending EKG is noted to be low voltage Echo: EF 50-60%; (4) Incarcerated umbilical hernia: General surgeon Dr. Shafer consulted for possible pain secondary to umbilical hernia No Surgical intervention recommended at this time, recommend abdominal binder use Follow-up as an outpatient (5) Paroxysmal A-fib: Heart rate is controlled Not on anticoagulation (6) Depression: Stable (7) Sleep apnea: Not on any CPAP and advised (8) Diabetes mellitus, type II: Resume metformin Discharge to home Follow-up with primary care physician in 1 week. Scheduling office closed at this time, patient will be called for the appointment. Follow-up with GI clinic as scheduled. Total Time Total Time Spent Total Time Spent (In Minutes): 45 minutes Discharge Plan Discharge Items Patient Disposition: Home - Self-Care Reason For Visit: TENSE ASCITES,POSSIBLE OBSTRUCTED UMBILICAL HERNIA Discharge Diagnosis: Abdominal pain secondary to ascites Discharge Goals: Diagnostic testing and Therapeutic intervention Activity: Resume your previous activity Activity Comment: Resume activity gradually as tolerated Lifting: Wait until after follow-up appointment Exercise/Sports: Wait until after follow-up appointment Driving/Machine Use Comment: No driving until follow-up with primary care physician Non-emergency contact: Primary Care Provider and Service Plumber Call non-emergency contact if: you have any medication questions, your symptoms worsen, your pain is not controlled, your pain is worsening and you have a fever Follow-up/Referrals: Renard Das MD [Primary Care Provider] - Diet: Carb Consistent or DM2, Heart Healthy and Low Sodium (2gm) Addtl Provider Instructions: FOLLOW UP WITH PRIMARY CARE PHYSICIAN IN 1 WEEK. FOLLOW UP WITH GASTROENTEROLOGY CLINIC IN 1-2 WEEKS. ALWAYS USE THE ABDOMINAL BINDER. CALL PRIMARY CARE PHYSICIAN OR RETURN TO THE ER IMMEDIATELY IF WITH RECURRENCE OR WORSENING OF SYMPTOMS, INCREASING ABDOMINAL DISTENTION, FEVER/CHILLS, NAUSEA/VOMITING, WEAKNESS. PLEASE REVIEW YOUR MEDICATION LIST AND FOLLOW INSTRUCTIONS CAREFULLY. Prescriptions: Continued artificial tears(hypromellose) 0.3 % gel 1 drops OP QID PRN (Reason: dryness) RF: 0 ketoconazole 2 % cream 1 appln TOP DAILY RF: 0 sodium chloride [[place] Saline] 0.65 % aerosol,spray 2 sprays INTNAS QID PRN (Reason: dryness) RF: 0 metformin 500 mg Tablet 500 mg PO QAM RF: 0 tamsulosin [Flomax] 0.4 mg Capsule 0.4 mg PO QAM RF: 0 ranitidine HCl 150 mg Tablet 150 mg PO BID PRN (Reason: Nausea) RF: 0 spironolactone 50 mg Tablet 50 mg PO QAM RF: 0 Prilosec OTC 20 mg Tablet,Delayed Release (Dr/Ec) 20 mg PO BID RF: 0 Centrum Silver 400-250 mcg Tablet,Chewable 1 tab PO QAM RF: 0 cholecalciferol (vitamin D3) [Vitamin D3] 2,000 unit tablet 2,000 units PO QAM RF: 0 polyethylene glycol 3350 [Miralax] 17 gram/dose Powder 17 g PO BID PRN (Reason: Constipation) RF: 0 lactulose 20 gram/30 mL Solution 30 g PO TID Qty: 0 RF: 0 fluticasone propionate [Flonase Allergy Relief] 50 mcg/actuation [place],Suspension 1 spray INTRANASAL BID RF: 0 loratadine 10 mg Tablet 10 mg PO DAILY PRN (Reason: Allergic Symptoms) RF: 0 furosemide 20 mg tablet 40 mg PO DAILY RF: 0 Xifaxan 550 mg tablet 550 mg PO BID RF: 0 Stand-Alone Forms: [facility] Discharge Orders: Discharge Order (Routine); Ordered 06/12/19 Ordered By: Vasyl Han Admission Data Admit Date/Time: 06/11/19 19:39 Attending Provider: Vasyl Han Admit Provider: Bridget Carson Primary Care Provider: Renard Das Other Providers: Bridget Carson ; Noble Cali ; Cuong Marroquin ; Tiffanie Groves ; Ignacio Ge ; Lesly Scott ; Jacques Ford ; Vick Garza ; Ayaka Carlos ; Yuan Ugarte ; Jacey Bonds ; Michelet Granett Jr ; Tyron Mtz ; Xiomy Ayala Service: Telemetry Other Interventions: Discharge Summary Assessment (RN) Last Done: 06/12/19 13:56 DC Date/Time DO NOT enter until pt leaves facility: 06/12/19 15:25
== END 2019-06-12 15:25 | disposition home or self-care (01) | DRG 948 ==
LOC: ED 14:52 → 2S 19:39

== ENCOUNTER 2019-11-17 21:05 | Inpatient (IN) ==
--- NOTE | 2019-11-17 22:18 | Emergency Department Note ---
Entered by Nusrat Fox acting as a scribe for Benjamin Alvarez MD ED Provider Note CHIEF COMPLAINT: abdominal pain HISTORY OF PRESENT ILLNESS: The patient is a 79 year old male who presents to the Emergency Room with complaints of abdominal pain that has been worsening over the past week. The patient has an abdominal hernia at his bellybutton. This has been causing more pain recently. His daughter notes that his stomach has been tapped before, and might need it done again. The patient has cirrhosis of the liver, and had a TIPS procedure done at [facility] in January 2019. The patient had an ultrasound done last Friday, and everything looked good. The patient has been increasing confused at home and was vomiting. The patient also complains of loss of appetite and weakness. His family reports his blood pressure is usually low. His states that he did fall the other day, but did not hit his head or lose consciousness. Pt denies LOC, headache, fevers, chills, diaphoresis, visual changes, neck pain, chest pain, breathing difficulties, back pain, melena, hematochezia, urinary symptoms, numbness, weakness, lymphadenopathy, rash, or other complaints. REVIEW OF SYSTEMS: See HPI for pertinent positives and negatives. A total of ten systems were reviewed and were otherwise negative. PMHx/PSHx: Abdominal hernia Cirrhosis Skin cancer SOCIAL HISTORY: Patient lives at home. PHYSICAL EXAM: GENERAL: Awake, alert, well-appearing, in no distress HENT: Hard of hearing. Normocephalic, atraumatic. Oropharynx unremarkable. EYES: PERRL. Normal conjunctiva. Sclera non-icteric. NECK: Inspection normal. Non-tender. Supple. No nuchal rigidity. FROM. No masses. RESPIRATORY: Clear to auscultation. No wheezes. No rales. Normal respiratory ef fort. CARDIAC: Normal rate. Normal rhythm. No murmurs. No rubs. Extremities warm and well perfused. Pulses equal. No JVD. GI: Ventral hernia reducible. Positive fluid wave. Minimally tender. Soft, non- distended. No rebound or guarding. No masses. RECTAL: Deferred. MUSCULOSKELETAL: Atraumatic. Chest examination reveals no tenderness. The back is symmetrical on inspection without obvious abnormality. There is no CVA tenderness to palpation. No joint edema. LOWER EXTREMITIES: Calves are equal size bilaterally and non-tender. No edema. No discoloration. NEURO: Mildly confused sensorium. No sensory or motor deficits noted. SKIN: No rash or jaundice noted. EMERGENCY DEPARTMENT COURSE: 2216: Past medical records reviewed. The patient was evaluated in room B09, and a complete history and physical examination were performed. 2313: I rechecked on the patient, who was resting in bed. MEDICAL DECISION MAKING: Prior records/ancillary studies reviewed. Triage Nursing notes reviewed and agree them. Additional history obtained from family. The patient's history was concerning for abdominal pain, liver disease, and confusion. Differential diagnosis: Etiologies such as hyperammonemia, liver failure, renal failure, SBP, incarcerated hernia, appendicitis, diverticulitis, PUD, biliary pathology, UTI, pancreatitis, obstruction, mesenteric ischemia, aortic pathology, infections, inflammatory bowel disease, renal colic, as well as others were entertained. Physical examination findings: As above. Umbilical hernia present but not incarcerated. Reducible. ER treatment provided: Patient declined analgesia Saline hydration IV vancomycin IV Zosyn On reassessment the patient felt better. Diagnostics interpreted by me: ECG: No acute ischemia The labs revealed a mild leukocytosis on CBC concerning for infectious process. Chemistry panel revealed mild elevation of patient's creatinine from baseline. Urinalysis negative. Blood cultures ordered. Fluid sent for analysis. Mild elevation of ammonia level but near patient's baseline. Imaging studies: CT of the head was negative for acute process CT scan of the abdomen and pelvis was performed. Stat read read raised concerns about ascites as well as possible infiltrative changes at the lung bases. This could be atelectasis. The patient did not note any pulmonary symptoms. INR mildly elevated. The patient has a leukocytosis and abdominal pain. He will need to be evaluated for possible SBP. Consultation: A consultation was placed with the [facility] hospitalist, Dr. Nicole. The case was discussed and diagnostics were reviewed. The patient was evaluated in the ER for further treatment. PARACENTESIS: Indication: Abdominal pain and leukocytosis. Verbal consent was obtained after the risks and benefits were explained, including but not limited to bleeding, scarring, infection, pain, and bowel/intra-abdominal organ/bone/joint/nerve damage. At this time, the risks of the procedure are less than the risks of NOT performing the procedure. A time out was taken and the correct patient and site identified. The skin over the right lateral abdomen was prepped in the standard sterile fashion after a pocket of ascites was identified with bedside ultrasound by me. Local anesthesia was provided with 3 mL of 1% lidocaine. Using sterile technique the needle was carefully inserted into the peritoneal cavity and 3 mL of straw-colored fluid was obtained. The patient tolerated the procedure well. A bandaid was placed. No complications. IMPRESSION: Generalized abdominal pain Leukocytosis Ascites Possible bilateral lower lobe infiltrates Hyperammonemia Elevated INR PLAN: Admit The scribe's documentation has been prepared under my direction and personally reviewed by me in its entirety. I confirm that the note above accurately reflects all work, treatment, procedures, and medical decision making performed by me. 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 Elevated LFTs suspected to be from DILI vs AIH. LFTs normalized now so immunosuppression use was deferred. 4L fluid drained 12/15. Abdomen noticeably distended at PAT appt on 12/31/18. BPH (benign prostatic hyperplasia) (Chronic) Cirrhosis (Chronic) Depression (Chronic) Diabetes mellitus, type II (Chronic) PER , METFORMIN RECENTLY D/C. GERD (gastroesophageal reflux disease) (Chronic) History of abdominal paracentesis (Resolved) 06/11/19, 02/08/19, 11/2018 HLD (hyperlipidemia) (Chronic) HTN (hypertension) (Chronic) No current meds Paroxysmal A-fib (Chronic) FOLLOWS W/ [facility] Poor historian PVCs (premature ventricular contractions) (Chronic) Sleep apnea (Chronic) NO DEVICE USED Spontaneous bacterial peritonitis (Resolved) Jun 2018. Pt was admitted for a fib RVR and ascites, fluid drawn from abdomen showed SBP. Treated with ABX and discharged. Following now with [facility] (Tyler/Lizzette Mitchell) and Dr. Monreal (Hepatology). Umbilical hernia Surgical History History of adenoidectomy (Chronic) 01/11/19 History of cataract surgery (Chronic) RT/LEFT History of colonoscopy (Chronic) 01/30/16 History of ERCP (Chronic) 05/12/18 - stent removed History of esophagogastroduodenoscopy (EGD) (Chronic) 11/07/2010, 06/23/18 - with endoscopic US History of eye surgery (Chronic) 2008 - TEAR DUCT OPENED UP History of hernia repair (Chronic) 04/02/18 History of intraocular lens implant (Chronic) 2008 - Bilateral History of laryngoscopy (Chronic) 01/11/19 - with biopsies + right modified radical cervical lymphadenectomy History of liver biopsy (Chronic) 05/2018 History of tonsillectomy (Chronic) 01/11/19 History of tooth extraction (Chronic) 01/11/19 S/P cholecystectomy (Chronic) 04/02/2018. Yan 2, grade 1 view. 8.0 ETT. 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 Sister , Passed age 6 months of pneumonia No problems noted. Brother , Passed in late 50's of [place] No problems noted. Sister , Passed in 60's of diabetic complications No problems noted. Sister No problems noted. Daughter Breast cancer, Onset Age: 40 Stage III - Currently doing well Brother No problems noted. Brother No problems noted. 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 Other Information That Helps Us Care for You: No Feels Safe at Home: Yes Safety Concerns: Feels Safe At This Time Smoking Status: Never smoker Tobacco Type: smokeless tobacco ; packs per day: 0.5 ; Do You Dip or Chew Tobacco: Yes ; Second Hand Exposure: No ; Hx Alcohol Use: No Hx Substance Use: No Childhood Exposure to Second-Hand Smoke: Yes caffeine: Yes (3 cups of coffee/week with tea inbetween ) during the past year weight has: decreased > 10 lbs Dental Care, Regularly: No Results & Data Vital Signs Vital Signs - 24 hr 11/17/19 21:07 11/17/19 23:04 11/18/19 00:35 Temperature 37.1 C Temperature Source Oral Pulse Rate 90 76 Pulse Rate [Finger] 73 Respiratory Rate 18 20 20 Respiratory Effort / Characteristics Non-Labored Spontaneous Non-Labored Respiratory Depth Normal Normal Respiratory Pattern Blood Pressure 106/65 103/55 L Blood Pressure [Left Arm] 89/54 L Blood Pressure Mean 78 71 Blood Pressure Mean [Left Arm] 65 Blood Pressure Position [Left Arm] Pulse Oximetry 96 95 94 Oxygen Delivery Method Room Air Room Air Sepsis Recent Fever Within 48 Hours No Sepsis New/Unexplained Change in Mental Status No Sepsis Action Taken by Nursing No Action Required 11/18/19 01:19 Temperature 37.1 C Temperature Source Oral Pulse Rate Pulse Rate [Finger] 73 Respiratory Rate 20 Respiratory Effort / Characteristics Non-Labored Spontaneous Respiratory Depth Normal Respiratory Pattern Regular Blood Pressure Blood Pressure [Left Arm] 89/54 L Blood Pressure Mean Blood Pressure Mean [Left Arm] 65 Blood Pressure Position [Left Arm] Lying Pulse Oximetry 94 Oxygen Delivery Method Room Air Sepsis Recent Fever Within 48 Hours Sepsis New/Unexplained Change in Mental Status Sepsis Action Taken by Shelter Medications Current Medication List: was personally reviewed by me Laboratory Data Attestation: I reviewed the patient's lab results. Result diagrams: 11/17/19 22:28 11/17/19 22:28 Lab Results 11/17/19 11/17/19 11/17/19 Range/Units 22:28 22:28 22:28 WBC 11.76 H (4.8-10.8) K/uL RBC 3.01 L (4.7-6.1) M/uL Hgb 9.8 L (14.0-18.0) g/dL Hct 28.1 L (42-52) % MCV 93.4 (80-100) fL MCH 32.6 (25-34) pg MCHC 34.9 (32-36) g/dL RDW Std Deviation 50.2 H (36.4-46.3) fL RDW Coeff of Scott 14.9 H (11.5-14.5) % Plt Count 139 (130-400) K/uL MPV 8.7 (7.4-10.4) fL Immature Gran % (Auto) 0.3 % Neut % (Auto) 85.5 % Lymph % (Auto) 8.5 % [place] % (Auto) 5.4 % Eos % (Auto) 0.1 % Baso % (Auto) 0.2 % Immature Gran # (Auto) 0.03 H (0.00-0.02) K/uL Neut # (Auto) 10.06 H (1.4-6.5) K/uL Lymph # (Auto) 1.00 L (1.2-3.4) K/uL [place] # (Auto) 0.64 H (0.11-0.59) K/uL Eos # (Auto) 0.01 (0-0.5) K/uL Baso # (Auto) 0.02 (0-0.2) K/uL Dohle Bodies 1+ Echinocytes 1+ PT 13.6 H (9.0-12.0) Seconds INR 1.4 H (0.9-1.1) Sodium 138 (136-145) mmol/L Potassium 3.9 (3.5-5.1) mmol/L Chloride 108 H (98-107) mmol/L Carbon Dioxide 21 (21-32) mmol/L Anion Gap 9.0 (3-11) BUN 25 H (7-18) mg/dl Creatinine 1.98 H (0.6-1.4) mg/dl Est Cr Clr Drug Dosing 24.7 ml/min Est GFR ( Amer) 36.4 Est GFR (Non-Af Amer) 31.4 BUN/Creatinine Ratio 12.7 (10-20) Glucose 141 H (70-99) mg/dl Calcium 9.0 (8.5-10.1) mg/dl Total Bilirubin 1.8 H (0.2-1) mg/dl AST 24 (15-37) U/L ALT 14 (12-78) U/L Alkaline Phosphatase 55 (45-117) U/L Ammonia (11-32) umol/L Total Protein 6.2 L (6.4-8.2) gm/dl Albumin 2.6 L (3.4-5.0) gm/dl Globulin 3.6 (2.5-4.0) gm/dl Albumin/Globulin Ratio 0.7 L (0.9-2) Lipase 38 L (73-393) U/L Urine Color Urine Appearance (Clear) Urine pH (4.5-7.5) Ur Specific [place] (1.000-1.030) Urine Protein (Negative) Urine Glucose (UA) (Negative) Urine Ketones (Negative) Urine Blood (Negative) Urine Nitrite (Negative) Urine Bilirubin (Negative) Urine Urobilinogen (Negative) Ur Leukocyte Esterase (Negative) Fluid Neutrophils % % Fluid Lymphocytes % % Fluid Eosinophils % % Fluid Basophils % % Fluid Meso/Macro/[place] % % Peritoneal Color Peritoneal Appearance Peritoneal WBC (0-300) /ul Peritoneal RBC /uL Peritoneal Tot Protein g/dl Peritoneal Albumin g/dl Peritoneal LDH U/L 11/17/19 11/17/19 11/18/19 Range/Units 22:28 23:28 00:05 WBC (4.8-10.8) K/uL RBC (4.7-6.1) M/uL Hgb (14.0-18.0) g/dL Hct (42-52) % MCV (80-100) fL MCH (25-34) pg MCHC (32-36) g/dL RDW Std Deviation (36.4-46.3) fL RDW Coeff of Scott (11.5-14.5) % Plt Count (130-400) K/uL MPV (7.4-10.4) fL Immature Gran % (Auto) % Neut % (Auto) % Lymph % (Auto) % [place] % (Auto) % Eos % (Auto) % Baso % (Auto) % Immature Gran # (Auto) (0.00-0.02) K/uL Neut # (Auto) (1.4-6.5) K/uL Lymph # (Auto) (1.2-3.4) K/uL [place] # (Auto) (0.11-0.59) K/uL Eos # (Auto) (0-0.5) K/uL Baso # (Auto) (0-0.2) K/uL Dohle Bodies Echinocytes PT (9.0-12.0) Seconds INR (0.9-1.1) Sodium (136-145) mmol/L Potassium (3.5-5.1) mmol/L Chloride (98-107) mmol/L Carbon Dioxide (21-32) mmol/L Anion Gap (3-11) BUN (7-18) mg/dl Creatinine (0.6-1.4) mg/dl Est Cr Clr Drug Dosing ml/min Est GFR ( Amer) Est GFR (Non-Af Amer) BUN/Creatinine Ratio (10-20) Glucose (70-99) mg/dl Calcium (8.5-10.1) mg/dl Total Bilirubin (0.2-1) mg/dl AST (15-37) U/L ALT (12-78) U/L Alkaline Phosphatase (45-117) U/L Ammonia 52.2 H (11-32) umol/L Total Protein (6.4-8.2) gm/dl Albumin (3.4-5.0) gm/dl Globulin (2.5-4.0) gm/dl Albumin/Globulin Ratio (0.9-2) Lipase (73-393) U/L Urine Color Dark Yellow Urine Appearance Clear (Clear) Urine pH 5.0 (4.5-7.5) Ur Specific [place] 1.018 (1.000-1.030) Urine Protein Negative (Negative) Urine Glucose (UA) Negative (Negative) Urine Ketones Trace H (Negative) Urine Blood Negative (Negative) Urine Nitrite Negative (Negative) Urine Bilirubin Negative (Negative) Urine Urobilinogen Negative (Negative) Ur Leukocyte Esterase Negative (Negative) Fluid Neutrophils % % Fluid Lymphocytes % % Fluid Eosinophils % % Fluid Basophils % % Fluid Meso/Macro/[place] % % Peritoneal Color Peritoneal Appearance Peritoneal WBC (0-300) /ul Peritoneal RBC /uL Peritoneal Tot Protein 3.5 g/dl Peritoneal Albumin 1.8 g/dl Peritoneal LDH 134 U/L 11/18/19 Range/Units 00:05 WBC (4.8-10.8) K/uL RBC (4.7-6.1) M/uL Hgb (14.0-18.0) g/dL Hct (42-52) % MCV (80-100) fL MCH (25-34) pg MCHC (32-36) g/dL RDW Std Deviation (36.4-46.3) fL RDW Coeff of Scott (11.5-14.5) % Plt Count (130-400) K/uL MPV (7.4-10.4) fL Immature Gran % (Auto) % Neut % (Auto) % Lymph % (Auto) % [place] % (Auto) % Eos % (Auto) % Baso % (Auto) % Immature Gran # (Auto) (0.00-0.02) K/uL Neut # (Auto) (1.4-6.5) K/uL Lymph # (Auto) (1.2-3.4) K/uL [place] # (Auto) (0.11-0.59) K/uL Eos # (Auto) (0-0.5) K/uL Baso # (Auto) (0-0.2) K/uL Dohle Bodies Echinocytes PT (9.0-12.0) Seconds INR (0.9-1.1) Sodium (136-145) mmol/L Potassium (3.5-5.1) mmol/L Chloride (98-107) mmol/L Carbon Dioxide (21-32) mmol/L Anion Gap (3-11) BUN (7-18) mg/dl Creatinine (0.6-1.4) mg/dl Est Cr Clr Drug Dosing ml/min Est GFR ( Amer) Est GFR (Non-Af Amer) BUN/Creatinine Ratio (10-20) Glucose (70-99) mg/dl Calcium (8.5-10.1) mg/dl Total Bilirubin (0.2-1) mg/dl AST (15-37) U/L ALT (12-78) U/L Alkaline Phosphatase (45-117) U/L Ammonia (11-32) umol/L Total Protein (6.4-8.2) gm/dl Albumin (3.4-5.0) gm/dl Globulin (2.5-4.0) gm/dl Albumin/Globulin Ratio (0.9-2) Lipase (73-393) U/L Urine Color Urine Appearance (Clear) Urine pH (4.5-7.5) Ur Specific [place] (1.000-1.030) Urine Protein (Negative) Urine Glucose (UA) (Negative) Urine Ketones (Negative) Urine Blood (Negative) Urine Nitrite (Negative) Urine Bilirubin (Negative) Urine Urobilinogen (Negative) Ur Leukocyte Esterase (Negative) Fluid Neutrophils % 2 % Fluid Lymphocytes % 32 % Fluid Eosinophils % 0 % Fluid Basophils % 0 % Fluid Meso/Macro/[place] % 66 % Peritoneal Color YELLOW Peritoneal Appearance CLEAR Peritoneal WBC 65 (0-300) /ul Peritoneal RBC < 3000 /uL Peritoneal Tot Protein g/dl Peritoneal Albumin g/dl Peritoneal LDH U/L Administered Medications Sodium Chloride (Nss 1000ml) 1,000 mls @ 125 mls/hr IV .Q8H STA Stop: 11/18/19 06:18 Last Admin: 11/17/19 23:07 Dose: 125 mls/hr Documented by: [id number] Vancomycin HCl 1,250 mg/ (Sodium Chloride) 525 mls @ 200 mls/hr IV NOW ONE Stop: 11/18/19 02:53 Last Admin: 11/18/19 01:20 Dose: 200 mls/hr Documented by: [id number] Discontinued Medications Piperacillin Sod/Tazobactam Sod (Zosyn) 4.5 gm in 120 mls @ 240 mls/hr IV NOW ONE Stop: 11/18/19 00:45 Last Infusion: 11/18/19 01:19 Dose: 0 mls/hr Documented by: [id number] Admin: 11/18/19 00:49 Dose: 240 mls/hr Documented by: [id number] Lidocaine HCl (Buffered Lidocaine 1%) Confirm Administered Dose 20 ml INFIL .STK-MED ONE Stop: 11/17/19 23:56 Last Admin: 11/18/19 00:17 Dose: Not Given Documented by: [id number] Lidocaine HCl (Buffered Lidocaine 1%) 20 ml INFIL NOW ONE Stop: 11/18/19 00:15 Last Admin: 11/18/19 00:16 Dose: 20 ml Documented by: [id number] Imaging Data Radiologist's Impression: Radiology results as stated below per my review and the radiologist's interpretation: CT head/brain wo con CLINICAL HISTORY: 79 years-old Male presenting with AMS. TECHNIQUE: Multidetector CT imaging of the head was performed without the use of intravenous contrast. IV contrast: None. One or more dose lowering techniques were used consistent with the principles of ALARA (as low as reasonably achievable), including automatic exposure control, mA or kV adjustment to individual patient size, and/or use of iterative reconstruction. COMPARISON: 03/31/2019. CT DOSE (mGy.cm): The estimated cumulative dose is 638.56 mGycm. FINDINGS: Operations Supervisor Chemical Cleaning topogram: Unremarkable. Ventricles and sulci normal in size. No hemorrhage. Brain parenchyma normal in appearance with preserved morelos-white differentiation. No acute territorial infarct. No mass effect or midline shift. No extra-axial fluid collection. Paranasal sinus thickening in the left maxillary sinus. Mucosal thickening also evident in left ethmoid air cells. Calvarium intact. IMPRESSION: 1. No acute intracranial abnormality. ACT 112: Negative or not required by law. Electronically signed by: Naresh Bourne M.D. 11/17/2019 10:58 PM ECG Data Attestation: I personally reviewed and interpreted this ECG as follows: Indication: + abdominal pain Rate (beats per minute): 83 Rhythm: normal sinus ECG [place]: + Normal ECG ST segments: + Nonspecific ST abnormalities; no ST depression and no ST elevation ECG Findings: + Other (low voltage QRS); no PACs and no PVCs Discharge Plan Visit Data Chief Complaint: Abdominal Pain Stated Complaint: ABD PAIN WEAKNESS CONFUSION ED Provider: Benjamin Alvarez Discharge Problem: Generalized abdominal pain, Leukocytosis, Anemia, Elevated INR, History of cirrhosis of liver Forms Stand Alone Forms: Call Back Authorization, [facility] Prescriptions Prescriptions: No Action artificial tears(hypromellose) 0.3 % gel 1 drops OP QID PRN (Reason: dryness) RF: 0 sodium chloride [Laurel Saline] 0.65 % aerosol,spray 2 sprays INTNAS QID PRN (Reason: dryness) RF: 0 tamsulosin [Flomax] 0.4 mg Capsule 0.4 mg PO QAM RF: 0 spironolactone [Aldactone] 50 mg Tablet 100 mg PO QAM RF: 0 Centrum Silver 400-250 mcg Tablet,Chewable 1 tab PO QAM RF: 0 cholecalciferol (vitamin D3) [Vitamin D3] 2,000 unit tablet 2,000 units PO QAM RF: 0 polyethylene glycol 3350 [Miralax] 17 gram/dose Powder 17 g PO BID PRN (Reason: Constipation) RF: 0 atorvastatin [Lipitor] 10 mg Tablet 10 mg PO HS RF: 0 (DME) lancets Misc MISCELLANEOUS RF: 0 econazole 1 % Cream 1 applic TOPICAL BID RF: 0 omeprazole 20 mg Capsule,Delayed Release(Dr/Ec) 20 mg PO DAILY RF: 0 betamethasone dipropionate 0.05 % Ointment 1 applic TOPICAL BID PRN (Reason: Rash) RF: 0 Restasis 0.05 % Dropperette 1 drp OPHTHALMIC (EYE) Q12H RF: 0 diclofenac sodium 1 % Gel 2 g TOPICAL BID PRN (Reason: Pain) RF: 0 tramadol 50 mg Tablet 50 mg PO DIRECTED PRN (Reason: Pain) RF: 0 furosemide [Lasix] 20 mg Tablet 40 mg PO DAILY RF: 0 azelastine 137 mcg (0.1 %) Aerosol,[place] 2 spray INTRANASAL BID RF: 0 fluoride (sodium) [Sodium Fluoride 5000 Plus] 1.1 % Cream 1 applic DENTAL BID RF: 0 Magic Mouth Wash 1 dose PO DIRECTED PRN (Reason: MOUTH SORES) RF: 0 loratadine 10 mg Tablet 10 mg PO DAILY PRN (Reason: Allergic Symptoms) RF: 0 Xifaxan 550 mg tablet 550 mg PO BID RF: 0 lactulose 20 gram/30 mL solution 30 g PO TID RF: 0 ipratropium bromide 0.03 % spray,non-aerosol 2 spray INTRANASAL UD RF: 0 Referrals Referrals: Renard Das MD [Primary Care Provider] - The scribe's documentation has been prepared under my direction and personally reviewed by me in its entirety. I confirm that the note above accurately reflects all work, treatment, procedures, and medical decision making performed by me.
[2019-11-17] MEDS ORDERED: SODIUM CHLORIDE 0.9% 1000ML 1,000 ML IV STA (22:19)
[2019-11-17 22:55] LABS: Hematocrit (blood only) 28.1 % (42-52); Hemoglobin 9.8 g/dL (14.0-18.0); Mean Corpuscular Hemoglobin 32.6 pg (25-34); Mean Corpuscular Hgb Conc 34.9 g/dL (32-36); Mean Corpuscular Volume 93.4 fL (80-100); Mean Platelet Volume 8.7 fL (7.4-10.4); Platelet Count 139 K/uL (130-400); RDW Coefficient of Variation 14.9 % (11.5-14.5); RDW Standard Deviation 50.2 fL (36.4-46.3); Red Blood Count 3.01 M/uL (4.7-6.1); White Blood Count 11.76 K/uL (4.8-10.8)
--- NOTE | 2019-11-17 22:59 | CT Scan Report ---
CT head/brain wo con CLINICAL HISTORY: 79 years-old Male presenting with AMS. TECHNIQUE: Multidetector CT imaging of the head was performed without the use of intravenous contrast . IV contrast: None. One or more dose lowering techniques were used consistent with the principles of ALARA (as low as reasonably achievable), including automatic exposure control, mA or kV adjustment t o individual patient size, and/or use of iterative reconstruction. COMPARISON: 03/31/2019. CT DOSE (mGy.cm): The estimated cumulative dose is 638.56 mGycm. FINDINGS: Dredge Operator Supervisor topogram: Unremarkable. Ventricles and sulci normal in size. No hemorrhage. Brain parenchyma normal in appearance with preser marcello morelos-white differentiation. No acute territorial infarct. No mass effect or midline shift. No ext ra-axial fluid collection. Paranasal sinus thickening in the left maxillary sinus. Mucosal thickening also evident in left ethmoid air cells. Calvarium intact. IMPRESSION: 1. No acute intracranial abnormality. ACT 112: Negative or not required by law. Electronically signed by: Naresh Bourne M.D. 11/17/2019 10:58 PM
[2019-11-17 23:04] LABS: INR 1.4 (0.9-1.1); Prothrombin Time 13.6 Seconds (9.0-12.0)
[2019-11-17 23:12] LABS: Albumin Level 2.6 gm/dl (3.4-5.0); BUN Creatinine Ratio 12.7 (10-20); Creatinine Clr Calc Pharmacy 24.7 ml/min; Est GFR (African American) 36.4; Est GFR (Non-African American) 31.4; Potassium 3.9 mmol/L (3.5-5.1)
[2019-11-17 23:14] LABS: Albumin Globulin Ratio 0.7 (0.9-2); Bilirubin,Total 1.8 mg/dl (0.2-1); Globulin 3.6 gm/dl (2.5-4.0); Total Protein 6.2 gm/dl (6.4-8.2)
[2019-11-17 23:33] LABS: Basophils # (auto) 0.02 K/uL (0-0.2); Basophils % (auto) 0.2 %; Dohle Bodies 1+; Echinocytes 1+; Eosinophils # (auto) 0.01 K/uL (0-0.5); Eosinophils % (auto) 0.1 %; Immature Granulocytes # (auto) 0.03 K/uL (0.00-0.02); Immature Granulocytes % (auto) 0.3 %; Lymphocytes % (auto) 8.5 %; Monocytes # (auto) 0.64 K/uL (0.11-0.59); Monocytes % (auto) 5.4 %; Neutrophils # (auto) 10.06 K/uL (1.4-6.5); Neutrophils % (auto) 85.5 %
[2019-11-17 23:40] LABS: Appearance Urine Clear (Clear); Bilirubin Urine Negative (Negative); Blood Urine Negative (Negative); Color Urine Dark Yellow; Glucose Urine UA Negative (Negative); Ketones Urine Trace (Negative); Leukocyte Esterase Urine Negative (Negative); Nitrite Urine Negative (Negative); Protein Urine Negative (Negative); Specific Gravity Urine 1.018 (1.000-1.030); Urobilinogen Urine Negative (Negative)
[2019-11-17] MEDS ORDERED: XYLOCAINE 1%/SOD BICARB 20 ML VIAL INFIL ONE (23:55)
[2019-11-18] MEDS ORDERED: XYLOCAINE 1%/SOD BICARB 20 ML VIAL INFIL ONE (00:14)
[2019-11-18] MEDS ORDERED: PIPERACILL/TAZOBAC CONSULT ACTIVE PRN (00:16)
[2019-11-18] MEDS ORDERED: VANCOMYCIN CONSULT ACTIVE PRN (00:16)
[2019-11-18] MEDS ORDERED: PIPERACILLIN/TAZOBACTAM 4.5 GM/120 ML BAG IV ONE (00:16)
[2019-11-18] MEDS ORDERED: VANCOMYCIN HCL 1,250 MG in SODIUM CHLORIDE 0.9% 500 ML IV ONE (00:16)
[2019-11-18 01:06] LABS: Albumin Peritoneal Fluid 1.8 g/dl; Total Protein Peritoneal Fluid 3.5 g/dl
[2019-11-18 01:19] LABS: Appearance Peritoneal Fluid CLEAR; Basophils, Fluid 0 %; Color Peritoneal Fluid YELLOW; Eosinophils, Fluid 0 %; Lymphocytes, Fluid 32 %; Mono,Macrophage,Mesothelial 66 %; Neutrophils, Fluid 2 %; RBC Peritoneal Fluid (A) < 3000 /uL; WBC Peritoneal Fluid (A) 65 /ul (0-300)
[2019-11-18] MEDS ORDERED: LACTULOSE SYRUP 30 GM/45 ML UDP PO STA (02:23)
[2019-11-18] MEDS ORDERED: LORATADINE 10 MG TAB PO PRN (02:23)
[2019-11-18] MEDS ORDERED: SODIUM CHLORIDE 0.9% 1000ML 1,000 ML IV SCH (02:23)
[2019-11-18] MEDS ORDERED: MAGIC MOUTH WASH PO PRN (02:23)
[2019-11-18] MEDS ORDERED: SODIUM CHLORIDE 0.65% NA SOLN 45 ML (OCEAN) PRN (02:23)
[2019-11-18] MEDS ORDERED: TRAMADOL HCL 50 MG TABLET PO PRN (02:23)
[2019-11-18] MEDS ORDERED: DICLOFENAC SOD 1% GEL 100 GM TUBE EXT PRN (02:23)
[2019-11-18] MEDS ORDERED: POLYETHYLENE (MIRALAX) 17 GM PACK PO PRN (02:23)
[2019-11-18] MEDS ORDERED: ONDANSETRON INJ 2 MG/ML 2 ML VIAL IV PRN (02:23)
[2019-11-18] MEDS ORDERED: NITROGLYCERIN SL 0.4 MG/TAB TAB SL PRN (02:23)
[2019-11-18] MEDS ORDERED: SODIUM CHLORIDE 0.9% 1000ML 1,000 ML IV STA (02:32)
[2019-11-18] MEDS ORDERED: BETAMETHASONE DIP AUG (DIPROLENE) 0.05% CR 15 GM TUBE EXT PRN (02:59)
[2019-11-18] MEDS ORDERED: ARTIFICIAL TEARS OP PRN (03:02)
[2019-11-18] MEDS ORDERED: Magic Swizzle w/Glycerin 240mL MT PRN ×2 (05:02→05:15)
--- NOTE | 2019-11-18 06:22 | CT Scan Report ---
CT abd pelvis wo con CT DOSE: 1007.73 mGycm HISTORY: Pain. Cirrhosis. vomiting, abd pain, cirrhosis, prior TIPS TECHNIQUE: Multiaxial CT images of the abdomen and pelvis were performed without contrast. A dose lo wering technique was utilized adhering to the principles of ALARA. COMPARISON STUDY: 10/02/2019 FINDINGS: Similar study overall compared to the prior exam. Evidence for hepatic cirrhosis. Prior TIP S procedure. Bibasilar parenchymal infiltrative changes slightly increased from the prior study. The kidneys are negative for hydronephrosis. A posterior right renal cyst is unchanged. There is no e vidence for hydronephrosis. Small bowel distention in the prior study is not identified currently. Unchanging mental hernia. Pelv ic ascites is present. Bladder is midline. IMPRESSION: 1. Abdominal and pelvic ascites stable to slightly diminished from the prior study. 2. Postoperative changes as noted. 3. No evidence for bowel obstruction change. ACT 112: Negative or not required by law. The above report was generated using voice recognition software. It may contain grammatical, syntax or spelling errors. Electronically signed by: Cuong Israel M.D. 11/18/2019 6:20 AM
--- NOTE | 2019-11-18 06:57 | History and Physical Report ---
DATE OF ADMISSION: 11/18/2019 CHIEF COMPLAINT: Abdominal pain. HISTORY OF PRESENT ILLNESS: This is a 79-year-old male with past medical history significant for cirrhosis with ascites, status post TIPS procedure in February of this year, history of paroxysmal atrial fibrillation, type 2 diabetes, hypertension, GERD, chronic kidney disease stage III, depression, sleep apnea, not using CPAP currently, umbilical hernia, presents with abdominal pain. As per the , patient might have vomited one time yesterday. Although his appetite is okay. Complaining of abdominal pain, mild to moderate in severity. The patient says that the pain is better now, moving his bowels okay a few times, micturating fine. Says he micturates twice daily. Denies any chest pain or shortness of breath. No cough, no headaches. Ambulates with a walker. The says he was somewhat mildly confused. His ammonia is somewhat elevated, at 52, his creatinine is 1.9, baseline creatinine around 1.3-1.5, hemoglobin 10.8, and WBC is 11.7. CT of abdomen and pelvis was done in the ER preliminary report was unremarkable except for some nonspecific findings and large ascites. . Status post diagnostic paracentesis the ER which was unremarkable. Currently resting comfortably and hemodynamically stable. Very hard to hear. ALLERGIES: No known drug allergies. PAST MEDICAL HISTORY: As mentioned above. PAST SURGICAL HISTORY: Biopsy of the prostate, colonoscopy, EGDs; EGD with transendoscopic dilatation, EGD with biopsy, EGD with endoscopic ultrasound, ERCP, exploratory laparoscopy, excision of tumor of the deep neck, laryngoscopy, removal of the cervical lymphadenectomy, modified radical neck dissection, tonsillectomy, repair of the incisional hernia, revision of left elbow. MEDICATIONS: The patient is on Zofran 4 mg every 8 hours p.r.n., lactulose 45 mL p.o. t.i.d., Lipitor 10 mg p.o. daily, omeprazole 20 mg p.o. daily, Claritin 10 mg p.o. daily p.r.n., MiraLax 17 g b.i.d. p.r.n., Aldactone 100 mg p.o. daily, Flomax 0.4 mg p.o. daily, Lasix 40 mg p.o. daily, Xifaxan 550 mg p.o. b.i.d., tramadol 50 mg p.r.n., mouth wash p.r.n., Restasis 1 drop in each eye b.i.d., vitamin D 2000 units p.o. daily, nasal spray artificial tears drop p.r.n., Centrum Silver 1 tablet daily, econazole nitrate cream as needed. FAMILY HISTORY: Significant for son has nasal allergies, mother had cancer. SOCIAL HISTORY: and lives with his . Quit smoking in 2005. Prior to that smoked 0.75 packs a day for 43 years. Currently, no alcohol use, no drug use. REVIEW OF SYMPTOMS: As per HPI. Rest of review of symptoms negative. PHYSICAL EXAMINATION: GENERAL: The patient is old and frail, not in acute distress. VITAL SIGNS: Temperature 37.1, pulse 73, respiratory rate 20, blood pressure 89/54, oxygen 94% room air. HEENT: No pallor, no icterus. NECK: No JVD, no neck masses. CARDIOVASCULAR: S1, S2 heard, regular rate and rhythm, no murmur, no gallop. RESPIRATORY SYSTEM: Normal AP diameter. No accessory muscle use. No wheezing, no crackles. ABDOMEN: Soft, bowel sounds present, distended, no guarding, no rigidity, no tenderness.Large umbilical hernia seen. Seems reducible though has pain on palpation. CENTRAL NERVOUS SYSTEM: Alert and oriented. Obeys commands. Moves extremities. EXTREMITIES: No edema, no erythema seen. LABORATORIES DATA: WBC is 11.7, hemoglobin 9.8, hematocrit 28.1, platelets 139. PT 13.6, INR 1.4. Sodium 138, potassium 3.9, chloride 108, bicarbonate 21, BUN 25, creatinine 1.9, serum glucose 141, calcium 9, total bilirubin 1.8, AST 24, ALT 14, alkaline phosphatase 55. Lipase 38. Urinalysis unremarkable. Diagnostic paracentesis was unremarkable. IMAGING: CT of the head, no acute findings seen. CT of abdomen and pelvis, large ascites and nonspecific findings on preliminary report. EKG: Normal sinus rhythm, rate of 83, no significant change was found. ASSESSMENT AND PLAN: This is a 79-year-old male who presents with abdominal pain. 1. Abdominal pain: The patient has a large umbilical hernia. CAT scan done done in Er unremarkable.Recently seen by surgery as an outpatient and as per records patient not interested in surgery. There is also a large volume of abdominal ascites, also could be contributing to pain. Diagnostic paracentesis unremarkable. Received IV antibiotics in ER, which we will hold for now. Consult GI for further recommendation for possible therapeutic paracentesis. We will keep him n.p.o. for now. 2. Confusion, possible mild hepatic encephalopathy: Ammonia level is 52. We will give extra dose of lactulose now and follow the ammonia levels. The patient's mental status currently seems to be at baseline. We will monitor. 3. History of liver cirrhosis, status post TIPS procedure. Continue his home diuretics of Aldactone and Lasix, lactulose and Xifaxan. Contact GI for further recommendations. 4. Acute kidney injury. Baseline creatinine about 1.3. Current creatinine 1.9. We will be getting fluids. We will follow the labs in a.m. 5. Diabetes. Not on medications. We will follow the blood sugars. Place on insulin sliding scale. 6. Large umbilical hernia. doesn't seemed to be obstructed. Will monitor. 6. Deep venous thrombosis prophylaxis, sequential compression devices. 7. Disposition: Monitor in the Med/Surg Tele. Level 1 full code. Addendum: having urinary retention. Initially refused straight cath or Gustafson. But later agreed for straight cath. Will monitor and consider urology consult. DEXTER
[2019-11-18] MEDS: RESTASIS~ORDER AWAITING ACTION SCH ×2 (07:47→15:33)
[2019-11-18] MEDS ORDERED: AZELASTINE~ORDER AWAITING ACTION SCH (08:00)
[2019-11-18] MEDS: LACTULOSE SYRUP 30 GM/45 ML UDP PO SCH ×3 (08:32→21:22)
[2019-11-18] MEDS: FUROSEMIDE 40 MG TAB PO SCH (08:33)
[2019-11-18] MEDS: PANTOprazole 40 MG TAB PO SCH (08:33)
[2019-11-18] MEDS: CEROVITE ADV FORMULA TAB PO SCH (08:33)
[2019-11-18] MEDS: RIFAXIMIN 550 MG TABLET PO SCH ×2 (08:33→21:23)
[2019-11-18] MEDS: SPIRONOLACTONE 100 MG TAB PO SCH (08:33)
[2019-11-18] MEDS: CHOLECALCIFEROL 1,000 UNITS 25 MCG TAB PO SCH (08:33)
[2019-11-18] MEDS: TAMSULOSIN HCL 0.4 MG CAP PO SCH (08:34)
[2019-11-18] MEDS: ECONAZOLE NITRATE 1% CRM 15 GM TUBE TOP SCH ×3 (08:34→21:51)
[2019-11-18] MEDS: INSULIN ASPART 100 UNITS/ML 3 ML PEN SC SCH ×4 (08:35→22:18)
[2019-11-18] MEDS ORDERED: FLUORIDE DT SCH (09:00)
[2019-11-18] MEDS ORDERED: APPLN DT SCH (09:00)
[2019-11-18 10:06] LABS: Estimated Average Glucose 103 mg/dl; Hemoglobin A1C 5.2 % (4.5-5.6)
--- NOTE | 2019-11-18 10:10 | Gastrointestinal Consultation ---
Date of Consultation November 18, 2019 Assessment & Plan (1) Generalized abdominal pain: 79 year old male with history of cirrhosis decompensated by refractory ascites s/p TIPS in, HE maintained on lactulose and xifaxan who presents through ED w/ abdominal pain which he reports is now fully resolved. Denies any abd pain, nausea/vomiting. Underwent diagnostic paracentesis w/o evidence of SBP, does have mild/moderate amount of fluid on my examination but no lower extremity edema - Duplex to check TIPS patency - If patent, therapeutic paracentesis w/ albumin 25% 25G before and after - CASH - Would hold Lasix 20 mg and Spironolactone 50 mg by mouth daily till kidney function recovers - Check urine NA - Continue Lactulose 30 g PO TID to titrate daily for 3 BM's - Xifaxan 550 mg by mouth twice daily - LOW NA DIET, less than 2G - NO ETOH - Less than 2G tylenol containing products Thank you for allowing us to participate in the care of this patient. Please call with any acute changes, questions or concerns. Please see addendum below with additional recommendation from my supervising physician. Present on Admission?: Yes Supervising Physician Co-Signing Physician Notes I performed a history and physical examination of the patient, including specifically on physical exam - soft, nontender abdomen. I have discussed the patient's management with Zita. Please refer to the nurse practitioner's note for the documented findings and plan of care. 79 yrs old male with persistent ascites after TIPS. Abdominal pain now resolved. Check Patency of TIPS. Diet compliance may be an issue. History of Present Illness Reason for Consultation: ascites Requesting Physician: Alli Attending Physician: Bridget Carson MD History of Present Illness 79 year old male with history of Cirrhosis and ascites, and underwent TIPS placement in February 2019 w/ reaccumulation of abdominal ascites who presents through the ED for evaluation of abdominal pain - GI aksed to evaluate. Pt was seen and evaluated, chart reviewed. He notes this AM he feels well and is no longer having any abdominal pain. He is unable to explain his prior pain but suggests that maybe "it was just my hernia" Denies any nausea/vomiting. No black/bloody stools. He is unsure when his last BM was but per chart reviewd this was yesterday. No fever, chills, CP, SOB. Is awake, alert and oriented. Diagnostic tap: no SBP CTAP: Abdominal and pelvic ascites stable to slightly diminished from the prior study. Postoperative changes as noted.. No evidence for bowel obstruction tracy ge. Allergies Allergy/AdvReac Type Severity Reaction Status Date / Time No Known Allergies Allergy Verified 11/17/19 21:48 Home Medications Home Medications Medication Instructions Recorded Confirmed Type Centrum Silver 1 tab PO QAM 12/21/18 11/17/19 History spironolactone [Aldactone] 100 mg PO QAM 12/21/18 11/17/19 History tamsulosin [Flomax] 0.4 mg PO QAM 12/21/18 11/17/19 History loratadine 10 mg PO DAILY PRN 01/07/19 11/17/19 History polyethylene glycol 3350 [Miralax] 17 g PO BID PRN 01/27/19 11/17/19 History artificial tears(hypromellose) 0.3 1 drops OP QID PRN 02/17/19 11/17/19 History % eye gel cholecalciferol (vitamin D3) 2,000 2,000 units PO QAM tab 02/17/19 11/17/19 History unit tablet sodium chloride 0.65 % nasal spray 2 sprays INTNAS QID PRN 02/17/19 11/17/19 History aerosol Xifaxan 550 mg PO BID 06/12/19 11/17/19 History lactulose 30 g PO TID 08/06/19 11/17/19 History atorvastatin [Lipitor] 10 mg PO HS 09/22/19 11/17/19 History betamethasone dipropionate 1 applic TOPICAL BID PRN 09/22/19 11/17/19 History cyclosporine [Restasis] 1 drp OPHTHALMIC (EYE) Q12H 09/22/19 11/17/19 History diclofenac sodium 2 g TOPICAL BID PRN 09/22/19 11/17/19 History econazole 1 applic TOPICAL BID 09/22/19 11/17/19 History lancets 09/22/19 09/22/19 History omeprazole 20 mg PO DAILY 09/22/19 11/17/19 History ipratropium bromide 2 spray INTRANASAL UD 10/02/19 11/17/19 History Magic Mouth Wash 1 dose PO DIRECTED PRN 11/17/19 11/17/19 History azelastine 2 spray INTRANASAL BID 11/17/19 11/17/19 History fluoride (sodium) [Sodium Fluoride 1 applic DENTAL BID 11/17/19 11/17/19 History 5000 Plus] furosemide [Lasix] 40 mg PO DAILY 11/17/19 11/17/19 History tramadol 50 mg PO DIRECTED PRN 11/17/19 11/17/19 History Patient History Medical History Anemia Ascites (Chronic) 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 Elevated LFTs suspected to be from DILI vs AIH. LFTs normalized now so immunosuppression use was deferred. 4L fluid drained 12/15. Abdomen noticeably distended at PAT appt on 12/31/18. BPH (benign prostatic hyperplasia) (Chronic) Cirrhosis (Chronic) Depression (Chronic) Diabetes mellitus, type II (Chronic) PER , METFORMIN RECENTLY D/C. GERD (gastroesophageal reflux disease) (Chronic) History of abdominal paracentesis (Resolved) 06/11/19, 02/08/19, 11/2018 HLD (hyperlipidemia) (Chronic) HTN (hypertension) (Chronic) No current meds Paroxysmal A-fib (Chronic) FOLLOWS W/ [facility] Poor historian PVCs (premature ventricular contractions) (Chronic) Sleep apnea (Chronic) NO DEVICE USED Spontaneous bacterial peritonitis (Resolved) Jun 2018. Pt was admitted for a fib RVR and ascites, fluid drawn from abdomen showed SBP. Treated with ABX and discharged. Following now with [facility] (Tyler/Lizzette Mitchell) and Dr. Monreal (Hepatology). Umbilical hernia Surgical History History of adenoidectomy (Chronic) 01/11/19 History of cataract surgery (Chronic) RT/LEFT History of colonoscopy (Chronic) 01/30/16 History of ERCP (Chronic) 05/12/18 - stent removed History of esophagogastroduodenoscopy (EGD) (Chronic) 11/07/2010, 06/23/18 - with endoscopic US History of eye surgery (Chronic) 2008 - TEAR DUCT OPENED UP History of hernia repair (Chronic) 04/02/18 History of intraocular lens implant (Chronic) 2008 - Bilateral History of laryngoscopy (Chronic) 01/11/19 - with biopsies + right modified radical cervical lymphadenectomy History of liver biopsy (Chronic) 05/2018 History of tonsillectomy (Chronic) 01/11/19 History of tooth extraction (Chronic) 01/11/19 S/P cholecystectomy (Chronic) 04/02/2018. Yan 2, grade 1 view. 8.0 ETT. 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 Sister , Passed age 6 months of pneumonia No problems noted. Brother , Passed in late 50's of [place] No problems noted. Sister , Passed in 60's of diabetic complications No problems noted. Sister No problems noted. Daughter Breast cancer, Onset Age: 40 Stage III - Currently doing well Brother No problems noted. Brother No problems noted. 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 Other Information That Helps Us Care for You: No Feels Safe at Home: Yes Safety Concerns: Feels Safe At This Time Smoking Status: Never smoker Tobacco Type: smokeless tobacco ; packs per day: 0.5 ; Do You Dip or Chew Tobacco: Yes ; Second Hand Exposure: No ; Hx Alcohol Use: No Hx Substance Use: No Childhood Exposure to Second-Hand Smoke: Yes caffeine: Yes (3 cups of coffee/week with tea inbetween ) during the past year weight has: decreased > 10 lbs Dental Care, Regularly: No Review of Systems Constitutional: no fever and no chills Respiratory: no cough and no dyspnea Cardiovascular: no chest pain and no dyspnea on exertion Gastrointestinal: no abdominal pain, no nausea, no vomiting and no melena Physical Exam Constitutional: + ill appearing (chronically ill) and + cachectic (temporal wasting) Neck: trachea midline Respiratory: normal respiratory effort Cardiovascular: Rate/Rhythm: regular rate and regular rhythm Gastrointestinal (Abdomen): normal bowel sounds, soft, nontender, no hepatosplenomegaly Percussion/Palpation: + ascites (moderate) Skin: no rashes, warm and dry Results & Data Vital Signs (Past 12 Hours) Vital Signs Temp Pulse Pulse Resp BP BP Pulse Ox 11/18/19 06:16 36.5 C 63 19 92/51 L 97 11/18/19 05:18 37.0 C 68 19 89/45 L 94 11/18/19 02:30 67 11/18/19 02:23 11/18/19 02:00 36.9 C 69 20 100/50 L 94 11/18/19 01:45 76 20 86/50 L 95 11/18/19 01:19 37.1 C 73 20 89/54 L 94 11/18/19 00:35 73 20 89/54 L 94 11/17/19 23:04 76 20 103/55 L 95 Pulse Ox 11/18/19 06:16 11/18/19 05:18 11/18/19 02:30 11/18/19 02:23 94 11/18/19 02:00 11/18/19 01:45 11/18/19 01:19 11/18/19 00:35 11/17/19 23:04 Laboratory Results 11/18/19 11/18/19 11/18/19 Range/Units 08:55 08:55 08:33 WBC (4.8-10.8) K/uL RBC (4.7-6.1) M/uL Hgb (14.0-18.0) g/dL Hct (42-52) % MCV (80-100) fL MCH (25-34) pg MCHC (32-36) g/dL RDW Std Deviation (36.4-46.3) fL RDW Coeff of Scott (11.5-14.5) % Plt Count (130-400) K/uL MPV (7.4-10.4) fL Immature Gran % (Auto) % Neut % (Auto) % Lymph % (Auto) % [place] % (Auto) % Eos % (Auto) % Baso % (Auto) % Immature Gran # (Auto) (0.00-0.02) K/uL Neut # (Auto) (1.4-6.5) K/uL Lymph # (Auto) (1.2-3.4) K/uL [place] # (Auto) (0.11-0.59) K/uL Eos # (Auto) (0-0.5) K/uL Baso # (Auto) (0-0.2) K/uL Dohle Bodies Echinocytes PT (9.0-12.0) Seconds INR (0.9-1.1) Sodium (136-145) mmol/L Potassium (3.5-5.1) mmol/L Chloride (98-107) mmol/L Carbon Dioxide (21-32) mmol/L Anion Gap (3-11) BUN (7-18) mg/dl Creatinine (0.6-1.4) mg/dl Est Cr Clr Drug Dosing ml/min Est GFR ( Amer) Est GFR (Non-Af Amer) BUN/Creatinine Ratio (10-20) Glucose (70-99) mg/dl POC Glucose 113 H (70-99) mg/dl Estimat Average Glucose 103 mg/dl Hemoglobin A1c 5.2 (4.5-5.6) % Calcium (8.5-10.1) mg/dl Total Bilirubin (0.2-1) mg/dl AST (15-37) U/L ALT (12-78) U/L Alkaline Phosphatase (45-117) U/L Ammonia 75.4 H (11-32) umol/L Total Protein (6.4-8.2) gm/dl Albumin (3.4-5.0) gm/dl Globulin (2.5-4.0) gm/dl Albumin/Globulin Ratio (0.9-2) Lipase (73-393) U/L Urine Color Urine Appearance (Clear) Urine pH (4.5-7.5) Ur Specific Liberty (1.000-1.030) Urine Protein (Negative) Urine Glucose (UA) (Negative) Urine Ketones (Negative) Urine Blood (Negative) Urine Nitrite (Negative) Urine Bilirubin (Negative) Urine Urobilinogen (Negative) Ur Leukocyte Esterase (Negative) Fluid Neutrophils % % Fluid Lymphocytes % % Fluid Eosinophils % % Fluid Basophils % % Fluid Meso/Macro/Elko % % Peritoneal Color Peritoneal Appearance Peritoneal WBC (0-300) /ul Peritoneal RBC /uL Peritoneal Tot Protein g/dl Peritoneal Albumin g/dl Peritoneal LDH U/L 11/18/19 11/18/19 11/17/19 Range/Units 00:05 00:05 23:28 WBC (4.8-10.8) K/uL RBC (4.7-6.1) M/uL Hgb (14.0-18.0) g/dL Hct (42-52) % MCV (80-100) fL MCH (25-34) pg MCHC (32-36) g/dL RDW Std Deviation (36.4-46.3) fL RDW Coeff of Scott (11.5-14.5) % Plt Count (130-400) K/uL MPV (7.4-10.4) fL Immature Gran % (Auto) % Neut % (Auto) % Lymph % (Auto) % [place] % (Auto) % Eos % (Auto) % Baso % (Auto) % Immature Gran # (Auto) (0.00-0.02) K/uL Neut # (Auto) (1.4-6.5) K/uL Lymph # (Auto) (1.2-3.4) K/uL [place] # (Auto) (0.11-0.59) K/uL Eos # (Auto) (0-0.5) K/uL Baso # (Auto) (0-0.2) K/uL Dohle Bodies Echinocytes PT (9.0-12.0) Seconds INR (0.9-1.1) Sodium (136-145) mmol/L Potassium (3.5-5.1) mmol/L Chloride (98-107) mmol/L Carbon Dioxide (21-32) mmol/L Anion Gap (3-11) BUN (7-18) mg/dl Creatinine (0.6-1.4) mg/dl Est Cr Clr Drug Dosing ml/min Est GFR ( Amer) Est GFR (Non-Af Amer) BUN/Creatinine Ratio (10-20) Glucose (70-99) mg/dl POC Glucose (70-99) mg/dl Estimat Average Glucose mg/dl Hemoglobin A1c (4.5-5.6) % Calcium (8.5-10.1) mg/dl Total Bilirubin (0.2-1) mg/dl AST (15-37) U/L ALT (12-78) U/L Alkaline Phosphatase (45-117) U/L Ammonia (11-32) umol/L Total Protein (6.4-8.2) gm/dl Albumin (3.4-5.0) gm/dl Globulin (2.5-4.0) gm/dl Albumin/Globulin Ratio (0.9-2) Lipase (73-393) U/L Urine Color Dark Yellow Urine Appearance Clear (Clear) Urine pH 5.0 (4.5-7.5) Ur Specific [place] 1.018 (1.000-1.030) Urine Protein Negative (Negative) Urine Glucose (UA) Negative (Negative) Urine Ketones Trace H (Negative) Urine Blood Negative (Negative) Urine Nitrite Negative (Negative) Urine Bilirubin Negative (Negative) Urine Urobilinogen Negative (Negative) Ur Leukocyte Esterase Negative (Negative) Fluid Neutrophils % 2 % Fluid Lymphocytes % 32 % Fluid Eosinophils % 0 % Fluid Basophils % 0 % Fluid Meso/Macro/[place] % 66 % Peritoneal Color YELLOW Peritoneal Appearance CLEAR Peritoneal WBC 65 (0-300) /ul Peritoneal RBC < 3000 /uL Peritoneal Tot Protein 3.5 g/dl Peritoneal Albumin 1.8 g/dl Peritoneal LDH 134 U/L 11/17/19 11/17/19 11/17/19 Range/Units 22:28 22:28 22:28 WBC (4.8-10.8) K/uL RBC (4.7-6.1) M/uL Hgb (14.0-18.0) g/dL Hct (42-52) % MCV (80-100) fL MCH (25-34) pg MCHC (32-36) g/dL RDW Std Deviation (36.4-46.3) fL RDW Coeff of Scott (11.5-14.5) % Plt Count (130-400) K/uL MPV (7.4-10.4) fL Immature Gran % (Auto) % Neut % (Auto) % Lymph % (Auto) % [place] % (Auto) % Eos % (Auto) % Baso % (Auto) % Immature Gran # (Auto) (0.00-0.02) K/uL Neut # (Auto) (1.4-6.5) K/uL Lymph # (Auto) (1.2-3.4) K/uL [place] # (Auto) (0.11-0.59) K/uL Eos # (Auto) (0-0.5) K/uL Baso # (Auto) (0-0.2) K/uL Dohle Bodies Echinocytes PT 13.6 H (9.0-12.0) Seconds INR 1.4 H (0.9-1.1) Sodium 138 (136-145) mmol/L Potassium 3.9 (3.5-5.1) mmol/L Chloride 108 H (98-107) mmol/L Carbon Dioxide 21 (21-32) mmol/L Anion Gap 9.0 (3-11) BUN 25 H (7-18) mg/dl Creatinine 1.98 H (0.6-1.4) mg/dl Est Cr Clr Drug Dosing 24.7 ml/min Est GFR ( Amer) 36.4 Est GFR (Non-Af Amer) 31.4 BUN/Creatinine Ratio 12.7 (10-20) Glucose 141 H (70-99) mg/dl POC Glucose (70-99) mg/dl Estimat Average Glucose mg/dl Hemoglobin A1c (4.5-5.6) % Calcium 9.0 (8.5-10.1) mg/dl Total Bilirubin 1.8 H (0.2-1) mg/dl AST 24 (15-37) U/L ALT 14 (12-78) U/L Alkaline Phosphatase 55 (45-117) U/L Ammonia 52.2 H (11-32) umol/L Total Protein 6.2 L (6.4-8.2) gm/dl Albumin 2.6 L (3.4-5.0) gm/dl Globulin 3.6 (2.5-4.0) gm/dl Albumin/Globulin Ratio 0.7 L (0.9-2) Lipase 38 L (73-393) U/L Urine Color Urine Appearance (Clear) Urine pH (4.5-7.5) Ur Specific [place] (1.000-1.030) Urine Protein (Negative) Urine Glucose (UA) (Negative) Urine Ketones (Negative) Urine Blood (Negative) Urine Nitrite (Negative) Urine Bilirubin (Negative) Urine Urobilinogen (Negative) Ur Leukocyte Esterase (Negative) Fluid Neutrophils % % Fluid Lymphocytes % % Fluid Eosinophils % % Fluid Basophils % % Fluid Meso/Macro/[place] % % Peritoneal Color Peritoneal Appearance Peritoneal WBC (0-300) /ul Peritoneal RBC /uL Peritoneal Tot Protein g/dl Peritoneal Albumin g/dl Peritoneal LDH U/L 11/17/19 Range/Units 22:28 WBC 11.76 H (4.8-10.8) K/uL RBC 3.01 L (4.7-6.1) M/uL Hgb 9.8 L (14.0-18.0) g/dL Hct 28.1 L (42-52) % MCV 93.4 (80-100) fL MCH 32.6 (25-34) pg MCHC 34.9 (32-36) g/dL RDW Std Deviation 50.2 H (36.4-46.3) fL RDW Coeff of Scott 14.9 H (11.5-14.5) % Plt Count 139 (130-400) K/uL MPV 8.7 (7.4-10.4) fL Immature Gran % (Auto) 0.3 % Neut % (Auto) 85.5 % Lymph % (Auto) 8.5 % [place] % (Auto) 5.4 % Eos % (Auto) 0.1 % Baso % (Auto) 0.2 % Immature Gran # (Auto) 0.03 H (0.00-0.02) K/uL Neut # (Auto) 10.06 H (1.4-6.5) K/uL Lymph # (Auto) 1.00 L (1.2-3.4) K/uL [place] # (Auto) 0.64 H (0.11-0.59) K/uL Eos # (Auto) 0.01 (0-0.5) K/uL Baso # (Auto) 0.02 (0-0.2) K/uL Dohle Bodies 1+ Echinocytes 1+ PT (9.0-12.0) Seconds INR (0.9-1.1) Sodium (136-145) mmol/L Potassium (3.5-5.1) mmol/L Chloride (98-107) mmol/L Carbon Dioxide (21-32) mmol/L Anion Gap (3-11) BUN (7-18) mg/dl Creatinine (0.6-1.4) mg/dl Est Cr Clr Drug Dosing ml/min Est GFR ( Amer) Est GFR (Non-Af Amer) BUN/Creatinine Ratio (10-20) Glucose (70-99) mg/dl POC Glucose (70-99) mg/dl Estimat Average Glucose mg/dl Hemoglobin A1c (4.5-5.6) % Calcium (8.5-10.1) mg/dl Total Bilirubin (0.2-1) mg/dl AST (15-37) U/L ALT (12-78) U/L Alkaline Phosphatase (45-117) U/L Ammonia (11-32) umol/L Total Protein (6.4-8.2) gm/dl Albumin (3.4-5.0) gm/dl Globulin (2.5-4.0) gm/dl Albumin/Globulin Ratio (0.9-2) Lipase (73-393) U/L Urine Color Urine Appearance (Clear) Urine pH (4.5-7.5) Ur Specific [place] (1.000-1.030) Urine Protein (Negative) Urine Glucose (UA) (Negative) Urine Ketones (Negative) Urine Blood (Negative) Urine Nitrite (Negative) Urine Bilirubin (Negative) Urine Urobilinogen (Negative) Ur Leukocyte Esterase (Negative) Fluid Neutrophils % % Fluid Lymphocytes % % Fluid Eosinophils % % Fluid Basophils % % Fluid Meso/Macro/[place] % % Peritoneal Color Peritoneal Appearance Peritoneal WBC (0-300) /ul Peritoneal RBC /uL Peritoneal Tot Protein g/dl Peritoneal Albumin g/dl Peritoneal LDH U/L
[2019-11-18] MEDS ORDERED: ALBUMIN 25% 50 ML IV ONE ×2 (10:45→11:45)
--- NOTE | 2019-11-18 14:54 | Ultrasound Report ---
US duplex portal hepatic veins CLINICAL HISTORY: 79 years-old Male presenting with ascites s/p TIPS, check patency. TECHNIQUE: Real-time grayscale and color and spectral Doppler ultrasound imaging of the liver was per formed. COMPARISON: 06/11/[address] from 11/17/2019. FINDINGS: Liver: Nodular contour with hyperechogenic parenchyma and heterogeneous echotexture, consistent with cirrhosis. A TIPS is in place. Limited sonographic assessment for hepatic mass. Vasculature: TIPS: Patent with normal flow. Velocity measures 36 cm/s proximally, 73 cm/s in the midportion, and 8 6 cm/s distally. Portal veins: Main portal vein with normal antegrade flow and gentle undulating waveforms. Peak veloc ity 23 cm/s. Left and right portal veins patent. Hepatic arteries: Not interrogated. Hepatic veins: Right, middle, and left hepatic veins patent. Slight blunting of waveforms. Splenic vein: Not interrogated. IVC: Grossly patent. Biliary: No intrahepatic biliary ductal dilatation. Gallbladder: Surgically absent. Ascites: Large volume simple appearing ascites. Other: None. IMPRESSION: 1. Patent TIPS without evidence of in-stent stenosis or occlusion. 2. Patent hepatic and portal veins. 3. Large volume ascites in the setting of cirrhosis. ACT 112: Negative or not required by law. Electronically signed by: Naresh Bourne M.D. 11/18/2019 2:53 PM
--- NOTE | 2019-11-18 14:55 | Ultrasound Report ---
US paracentesis abd w/image CLINICAL HISTORY: 79 years-old Male presenting with ascites s/p TIPS. COMPARISON: CT from 11/17/2019 and prior paracentesis on 09/22/2019. PROCEDURE: The procedure and its risks, benefits, and alternatives were discussed with the patient, and written informed consent was obtained. A timeout was performed to confirm patient identity. Limited ultrasound of the abdomen was performed to determine a safe needle entry site, and the site w as marker for paracentesis. The right lower quadrant was prepped and draped in the usual aseptic fashion. 1% Lidocaine was used f or local anesthesia. A paracentesis needle-sheath was inserted into the peritoneal space using ultrasound guidance. The ne edle was removed and the sheath was connected to tubing and a vacuum suction device. A total of 4 L o f clear yellow ascites was aspirated. The sheath was removed, and a dressing applied. The patient tolerated the procedure well. No immediate complications. IMPRESSION: Ultrasound-guided therapeutic paracentesis with aspiration of 4 L of ascites. ACT 112: Negative or not required by law. Electronically signed by: Naresh Bourne M.D. 11/18/2019 2:53 PM
--- NOTE | 2019-11-18 16:01 | Hospitalist Progress Note ---
Date of Service November 18, 2019 Assessment & Plan (1) Generalized abdominal pain: Admitted with generalized abdominal pain and confusion CT of the abdomen and pelvis did not show any obstruction in the hernia or intestine Since admission pain has been resolved No more recurrence of abdominal pain (2) Decompensated hepatic cirrhosis: Noted to have mild confusion on admission Ammonia level is 52 Has been taking his diuretics and rifaximin as prescribed Appreciate GI input and recommendation Noted to have ascites Status post diagnostic paracentesis which was negative for any infection No increase in abdominal distention and/or pain (3) Ascites: Noted to have ascites Not tense Might consider paracentesis depending on the symptoms Status post 4 L of paracentesis (4) S/P TIPS (transjugular intrahepatic portosystemic shunt): on 11/19/2019Will have ultrasound of the TIPS to see the patency Sound revealed patency of the TIPS (5) Confusion: No hepatic encephalopathy Mild confusion is resolved No more confusion noted this morning (6) Diabetes mellitus, type II: We will continue current medications and checking her blood sugar (7) HTN (hypertension): Blood pressure remains in the lower side of normal Holding diuretics for impaired kidney function (8) Umbilical hernia: Did not show any obstruction hernia in CT of the abdomen and pelvis No pain and/or discomfort on examination (9) Acute kidney injury: Creatinine went up to 1.9 from 1.3 at baseline Received small dose of IV fluid We will monitor-creatinine normalized DVT prophylaxis SCDs CODE STATUS Full Discharge home this afternoon Subjective 11/18/2019 Patient was seen and examined in medical telemetry unit 79-year-old male with decompensated cirrhosis by refractory ascites status post TIPS, on maintenance lactulose and Xifaxan was admitted early this morning with abdominal pain and distention Remains free of pain during examination Wanted to go home 11/19/2019 Patient is seen and examined in medical telemetry unit He was noted to have low blood pressure at this morning without any symptoms and that improved subsequently Denies any symptoms as of now He did very well with PT and OT and will be discharged home this afternoon Review of Systems Review of Systems: All systems reviewed and are unremarkable except as noted below Gastrointestinal: + abdominal pain, + bloating and + nausea; no vomiting Has Huge umbilical hernia without any obstruction Physical Exam Physical Exam: Lying in bed comfortably Constitutional: well developed, + ill appearing and + thin; no acute distress Eyes: PERRL, conjunctivae normal, anicteric sclerae ENMT: external ear and nose normal, oropharynx normal Neck: trachea midline, no thyromegaly Respiratory: normal respiratory effort; no respiratory distress Auscultation: lungs clear to auscultation bilaterally Cardiovascular: Rate/Rhythm: regular rate and regular rhythm Heart Sounds: no murmur Gastrointestinal (Abdomen): Inspection/Auscultation: + abdomen distended Percussion/Palpation: + abdomen tender (Mildly tender), abdomen soft and + ascites Huge umbilical hernia without obstruction Musculoskeletal: No acute arthritis in any joint Neurologic: moves all extremities; no focal motor deficits Alert, awake and oriented x3 Lymphatic: no cervical or axillary lymphadenopathy Results & Data Vital Signs (Past 12 Hours) Vital Signs Temp Pulse Resp BP Pulse Ox 11/18/19 15:28 36.5 C 57 L 18 96/53 L 98 11/18/19 11:03 36.5 C 64 18 100/54 L 97 11/18/19 06:16 36.5 C 63 19 92/51 L 97 11/18/19 05:18 37.0 C 68 19 89/45 L 94 Laboratory Results Short CBC 11/17/19 Range/Units 22:28 WBC 11.76 H (4.8-10.8) K/uL Hgb 9.8 L (14.0-18.0) g/dL Hct 28.1 L (42-52) % Plt Count 139 (130-400) K/uL BMP 11/17/19 22:28 Sodium 138 Potassium 3.9 Chloride 108 H Carbon Dioxide 21 BUN 25 H Creatinine 1.98 H Glucose 141 H Calcium 9.0 Liver Function 11/17/19 Range/Units 22:28 Total Bilirubin 1.8 H (0.2-1) mg/dl AST 24 (15-37) U/L ALT 14 (12-78) U/L Alkaline Phosphatase 55 (45-117) U/L Albumin 2.6 L (3.4-5.0) gm/dl Urine 11/17/19 Range/Units 23:28 Urine Color Dark Yellow Urine Appearance Clear (Clear) Urine pH 5.0 (4.5-7.5) Ur Specific [place] 1.018 (1.000-1.030) Urine Protein Negative (Negative) Urine Glucose (UA) Negative (Negative) Medications Administered Current Inpatient Medications Artificial Tears (Artificial Tears) 1 drops OP QID PRN PRN Reason: Dryness Stop: 12/18/19 03:01 Atorvastatin Calcium (Lipitor) 10 mg PO HS EARLENE Stop: 12/18/19 20:59 Betamethasone Dipropion Augmented (Diprolene 0.05%) 1 appln EXT BID PRN PRN Reason: Rash Stop: 12/18/19 02:58 Lidocaine HCl 60 ml/Diphenhydramine HCl 150 mg/ Al Hydrox/Mg Hydrox/Simethicone 60 ml/ Glycerin 60 ml/ BARCODE IDENTIFIER 1 ea 0 ml MT ACHS PRN PRN Reason: .SORE MOUTH Stop: 12/18/19 05:01 Diclofenac Sodium (Voltaren 1% Top) 2 gm EXT BID PRN PRN Reason: Pain Stop: 12/18/19 02:22 Econazole Nitrate (Spectazole 1%) 1 appln TOP BID EARLENE Stop: 12/18/19 08:59 Last Admin: 11/18/19 08:34 Dose: 1 appln Documented by: Furosemide (Lasix) 40 mg PO DAILY EARLENE Stop: 12/18/19 08:59 Last Admin: 11/18/19 08:33 Dose: 40 mg Documented by: Insulin Aspart (Novolog Flexpen) 0 units SC ACHS EARLENE Stop: 12/18/19 07:29 Last Admin: 11/18/19 11:49 Dose: Not Given Documented by: Lactulose (Chronulac) 30 gm PO TID EARLENE Stop: 12/18/19 08:59 Last Admin: 11/18/19 13:25 Dose: 30 gm Documented by: Loratadine (Claritin) 10 mg PO DAILY PRN PRN Reason: Allergic Symptoms Stop: 12/18/19 02:22 Miscellaneous (Order Awaiting Action) 1 ea N/A QS EARLENE Stop: 12/18/19 07:59 Last Admin: 11/18/19 15:33 Dose: Not Given Documented by: Miscellaneous (Order Awaiting Action) 1 ea N/A QS EARLENE Stop: 12/18/19 07:59 Last Admin: 11/18/19 15:33 Dose: Not Given Documented by: Multivitamins/Minerals (Multivitamin W/ Minerals Tab) 1 tab PO QAM EARLENE Stop: 12/18/19 08:59 Last Admin: 11/18/19 08:33 Dose: 1 tab Documented by: Nitroglycerin (Nitrostat) 0.4 mg SL UD PRN PRN Reason: Chest Pain Stop: 12/18/19 02:22 Ondansetron HCl (Zofran) 4 mg IV Q6H PRN PRN Reason: Nausea Stop: 12/18/19 02:22 Pantoprazole Sodium (Protonix) 40 mg PO DAILY [facility] Stop: 12/18/19 08:59 Last Admin: 11/18/19 08:33 Dose: 40 mg Documented by: Polyethylene Glycol (Miralax Powder Packet) 17 gm PO BID PRN PRN Reason: Constipation Stop: 12/18/19 02:22 Rifaximin (Xifaxan) 550 mg PO BID [facility] Stop: 12/18/19 08:59 Last Admin: 11/18/19 08:33 Dose: 550 mg Documented by: Sodium Chloride ([place] Nasal) 2 sprays NA QID PRN PRN Reason: dryness Stop: 12/18/19 02:22 Spironolactone (Aldactone) 100 mg PO QAM [facility] Stop: 12/18/19 08:59 Last Admin: 11/18/19 08:33 Dose: 100 mg Documented by: Tamsulosin HCl (Flomax) 0.4 mg PO QAM [facility] Stop: 12/18/19 08:59 Last Admin: 11/18/19 08:34 Dose: 0.4 mg Documented by: Tramadol HCl (Ultram) 50 mg PO TID PRN PRN Reason: Pain Stop: 12/18/19 02:22 Vitamin D (Vitamin D3) [facility] Stop: 12/18/19 08:59 Last Admin: 11/18/19 08:33 Dose: 2,000 units Documented by:
[2019-11-18] MEDS ORDERED: Nursing to Pharmacy Communication ONE ×2 (17:59→19:28)
[2019-11-18] MEDS ORDERED: INSULIN ASPART 100 UNITS/ML 3 ML PEN SC SCH (18:00)
[2019-11-18] MEDS ORDERED: ATORVASTATIN 10 MG TAB PO SCH (21:00)
[2019-11-19] MEDS: RESTASIS~ORDER AWAITING ACTION SCH ×2 (00:38→08:34)
--- NOTE | 2019-11-19 05:28 | Electrocardiogram Report ---
Test Reason : Blood Pressure : / mmHG Vent. Rate : 083 BPM Atrial Rate : 083 BPM P-R Int : 182 ms QRS Dur : 076 ms QT Int : 386 ms P-R-T Axes : 053 -20 060 degrees QTc Int : 453 ms Normal sinus rhythm Low voltage QRS Nonspecific T wave abnormality Abnormal ECG When compared with ECG of 11-JUN-2019 15:27, No significant change was found Confirmed by Marty Barrett ([id number]) on 11/19/2019 5:28:02 AM Referred By: REFERRED SELF Confirmed By:Marty Barrett
[2019-11-19 06:32] LABS: Basophils # (auto) 0.01 K/uL (0-0.2); Basophils % (auto) 0.1 %; Eosinophils # (auto) 0.22 K/uL (0-0.5); Eosinophils % (auto) 2.6 %; Hematocrit (blood only) 26.3 % (42-52); Hemoglobin 9.2 g/dL (14.0-18.0); Immature Granulocytes # (auto) 0.02 K/uL (0.00-0.02); Immature Granulocytes % (auto) 0.2 %; Lymphocytes # (auto) 0.84 K/uL (1.2-3.4); Mean Corpuscular Hemoglobin 32.4 pg (25-34); Mean Corpuscular Volume 92.6 fL (80-100); Mean Platelet Volume 8.7 fL (7.4-10.4); Monocytes # (auto) 0.49 K/uL (0.11-0.59); Monocytes % (auto) 5.8 %; Neutrophils # (auto) 6.85 K/uL (1.4-6.5); Neutrophils % (auto) 81.3 %; Platelet Count 126 K/uL (130-400); RDW Coefficient of Variation 14.5 % (11.5-14.5); RDW Standard Deviation 49.3 fL (36.4-46.3); Red Blood Count 2.84 M/uL (4.7-6.1); White Blood Count 8.43 K/uL (4.8-10.8)
[2019-11-19 07:09] LABS: Calcium 7.8 mg/dl (8.5-10.1); Creatinine Clr Calc Pharmacy 36.3 ml/min; Est GFR (African American) 57.9; Est GFR (Non-African American) 49.9; Magnesium 1.8 mg/dl (1.8-2.4); Potassium 3.7 mmol/L (3.5-5.1)
[2019-11-19 07:20] LABS: Albumin Globulin Ratio 0.7 (0.9-2); Albumin Level 2.1 gm/dl (3.4-5.0); BUN Creatinine Ratio 15.8 (10-20); Bilirubin Direct 0.4 mg/dl (0-0.2); Bilirubin,Total 1.3 mg/dl (0.2-1); Calcium 7.8 mg/dl (8.5-10.1); Creatinine Clr Calc Pharmacy 35.2 ml/min; Est GFR (African American) 55.9; Est GFR (Non-African American) 48.2; Globulin 2.9 gm/dl (2.5-4.0); Potassium 3.7 mmol/L (3.5-5.1)
[2019-11-19] MEDS: INSULIN ASPART 100 UNITS/ML 3 ML PEN SC SCH ×2 (08:34→12:46)
[2019-11-19] MEDS: SPIRONOLACTONE 100 MG TAB PO SCH ×2 (08:41→10:32)
[2019-11-19] MEDS: LACTULOSE SYRUP 30 GM/45 ML UDP PO SCH ×2 (08:42→14:01)
[2019-11-19] MEDS: TAMSULOSIN HCL 0.4 MG CAP PO SCH (08:46)
[2019-11-19] MEDS: PANTOprazole 40 MG TAB PO SCH (08:49)
[2019-11-19] MEDS: CHOLECALCIFEROL 1,000 UNITS 25 MCG TAB PO SCH (08:49)
[2019-11-19] MEDS: CEROVITE ADV FORMULA TAB PO SCH (08:49)
[2019-11-19] MEDS: RIFAXIMIN 550 MG TABLET PO SCH (08:50)
[2019-11-19] MEDS: ECONAZOLE NITRATE 1% CRM 15 GM TUBE TOP SCH (09:00)
--- NOTE | 2019-11-19 09:15 | Gastroenterology Progress Note ---
Date of Service November 19, 2019 Assessment & Plan (1) Generalized abdominal pain: 79 year old male with history of cirrhosis decompensated by refractory ascites s/p TIPS in, HE maintained on lactulose and xifaxan who presents through ED w/ abdominal pain which he reports is now fully resolved. Denies any abd pain, nausea/vomiting. Underwent diagnostic paracentesis w/o evidence of SBP, does have mild/moderate amount of fluid on my examination but no lower extremity edema - TIPS patent - No SBP - ANTHROPOMETRIST returned to baseline - Resume Lasix 20 mg and Spironolactone 50 mg by mouth daily - Continue Lactulose 30 g PO TID to titrate daily for 3 BM's - Xifaxan 550 mg by mouth twice daily - LOW NA DIET, less than 2G - NO ETOH - Less than 2G tylenol containing products Will sign off. Thank you for allowing us to participate in the care of this patient. Please call with any acute changes, questions or concerns. Please see addendum below with additional recommendation from my supervising physician. Supervising Physician Co-Signing Physician Notes I have discussed the patient's management with Zita. Please refer to the nurse practitioner's note for the documented findings and plan of care. Resume diuretics and follow up as OP. Subjective Pt was seen and evaluated, chart reviewed. Feeling well, wants to go home today when daughter arrives ABD pain resolved. No nausea, vomiting. No fever, chills, CP, SOB. Urine NA returned non compatible with HRS TIPS appears patent, ANTHROPOMETRIST returned to baseline Review of Systems Constitutional: no fever, no chills, no body aches and no fatigue Respiratory: no cough, no dyspnea, no hemoptysis and no wheezing Cardiovascular: no chest pain, no dyspnea, no dyspnea on exertion and no orthopnea Gastrointestinal: no abdominal pain, no belching, no coffee ground emesis, no hematemesis, no blood in stools and no melena Physical Exam Constitutional: WD/WN, vitals as above no acute distress and not ill appearing Neck: + trachea not midline Respiratory: normal respiratory effort, lungs clear to auscultation Cardiovascular: Rate/Rhythm: regular rate and regular rhythm Heart Sounds: no click, no gallop, no murmur and no cardiac rub Gastrointestinal (Abdomen): normal bowel sounds, soft, nontender, no hepatosplenomegaly Results & Data Vital Signs (Past 12 Hours) Vital Signs Temp Pulse Pulse Resp BP Pulse Ox 11/19/19 07:33 36.7 C 64 18 84/39 L 95 11/19/19 03:00 36.9 C 78 20 82/49 L 94 11/18/19 23:38 60 11/18/19 23:11 37.1 C 70 19 97/58 L 95 Laboratory Results 11/19/19 11/19/19 11/19/19 Range/Units 06:22 06:22 06:22 WBC 8.43 (4.8-10.8) K/uL RBC 2.84 L (4.7-6.1) M/uL Hgb 9.2 L (14.0-18.0) g/dL Hct 26.3 L (42-52) % MCV 92.6 (80-100) fL MCH 32.4 (25-34) pg MCHC 35.0 (32-36) g/dL RDW Std Deviation 49.3 H (36.4-46.3) fL RDW Coeff of Scott 14.5 (11.5-14.5) % Plt Count 126 L (130-400) K/uL MPV 8.7 (7.4-10.4) fL Immature Gran % (Auto) 0.2 % Neut % (Auto) 81.3 % Lymph % (Auto) 10.0 % [place] % (Auto) 5.8 % Eos % (Auto) 2.6 % Baso % (Auto) 0.1 % Immature Gran # (Auto) 0.02 (0.00-0.02) K/uL Neut # (Auto) 6.85 H (1.4-6.5) K/uL Lymph # (Auto) 0.84 L (1.2-3.4) K/uL [place] # (Auto) 0.49 (0.11-0.59) K/uL Eos # (Auto) 0.22 (0-0.5) K/uL Baso # (Auto) 0.01 (0-0.2) K/uL Sodium 139 140 (136-145) mmol/L Potassium 3.7 3.7 (3.5-5.1) mmol/L Chloride 110 H 111 H (98-107) mmol/L Carbon Dioxide 22 22 (21-32) mmol/L Anion Gap 7.0 7.0 (3-11) BUN 23 H 22 H (7-18) mg/dl Creatinine 1.35 1.39 D (0.6-1.4) mg/dl Est Cr Clr Drug Dosing 36.3 35.2 ml/min Est GFR ( Amer) 57.9 55.9 Est GFR (Non-Af Amer) 49.9 48.2 BUN/Creatinine Ratio 17.0 15.8 (10-20) Glucose 94 96 (70-99) mg/dl POC Glucose (70-99) mg/dl Estimat Average Glucose mg/dl Hemoglobin A1c (4.5-5.6) % Calcium 7.8 L 7.8 L (8.5-10.1) mg/dl Magnesium 1.8 (1.8-2.4) mg/dl Total Bilirubin 1.3 H (0.2-1) mg/dl Direct Bilirubin 0.4 H (0-0.2) mg/dl AST 19 (15-37) U/L ALT 13 (12-78) U/L Alkaline Phosphatase 47 (45-117) U/L Ammonia (11-32) umol/L Total Protein 5.0 L D (6.4-8.2) gm/dl Albumin 2.1 L (3.4-5.0) gm/dl Globulin 2.9 (2.5-4.0) gm/dl Albumin/Globulin Ratio 0.7 L (0.9-2) Ur Random Sodium mmol/L 11/18/19 11/18/19 11/18/19 Range/Units 20:34 18:08 17:25 WBC (4.8-10.8) K/uL RBC (4.7-6.1) M/uL Hgb (14.0-18.0) g/dL Hct (42-52) % MCV (80-100) fL MCH (25-34) pg MCHC (32-36) g/dL RDW Std Deviation (36.4-46.3) fL RDW Coeff of Scott (11.5-14.5) % Plt Count (130-400) K/uL MPV (7.4-10.4) fL Immature Gran % (Auto) % Neut % (Auto) % Lymph % (Auto) % [place] % (Auto) % Eos % (Auto) % Baso % (Auto) % Immature Gran # (Auto) (0.00-0.02) K/uL Neut # (Auto) (1.4-6.5) K/uL Lymph # (Auto) (1.2-3.4) K/uL [place] # (Auto) (0.11-0.59) K/uL Eos # (Auto) (0-0.5) K/uL Baso # (Auto) (0-0.2) K/uL Sodium (136-145) mmol/L Potassium (3.5-5.1) mmol/L Chloride (98-107) mmol/L Carbon Dioxide (21-32) mmol/L Anion Gap (3-11) BUN (7-18) mg/dl Creatinine (0.6-1.4) mg/dl Est Cr Clr Drug Dosing ml/min Est GFR ( Amer) Est GFR (Non-Af Amer) BUN/Creatinine Ratio (10-20) Glucose (70-99) mg/dl POC Glucose 123 H 99 (70-99) mg/dl Estimat Average Glucose mg/dl Hemoglobin A1c (4.5-5.6) % Calcium (8.5-10.1) mg/dl Magnesium (1.8-2.4) mg/dl Total Bilirubin (0.2-1) mg/dl Direct Bilirubin (0-0.2) mg/dl AST (15-37) U/L ALT (12-78) U/L Alkaline Phosphatase (45-117) U/L Ammonia (11-32) umol/L Total Protein (6.4-8.2) gm/dl Albumin (3.4-5.0) gm/dl Globulin (2.5-4.0) gm/dl Albumin/Globulin Ratio (0.9-2) Ur Random Sodium 141 mmol/L 11/18/19 11/18/19 11/18/19 Range/Units 11:28 08:55 08:55 WBC (4.8-10.8) K/uL RBC (4.7-6.1) M/uL Hgb (14.0-18.0) g/dL Hct (42-52) % MCV (80-100) fL MCH (25-34) pg MCHC (32-36) g/dL RDW Std Deviation (36.4-46.3) fL RDW Coeff of Scott (11.5-14.5) % Plt Count (130-400) K/uL MPV (7.4-10.4) fL Immature Gran % (Auto) % Neut % (Auto) % Lymph % (Auto) % [place] % (Auto) % Eos % (Auto) % Baso % (Auto) % Immature Gran # (Auto) (0.00-0.02) K/uL Neut # (Auto) (1.4-6.5) K/uL Lymph # (Auto) (1.2-3.4) K/uL [place] # (Auto) (0.11-0.59) K/uL Eos # (Auto) (0-0.5) K/uL Baso # (Auto) (0-0.2) K/uL Sodium (136-145) mmol/L Potassium (3.5-5.1) mmol/L Chloride (98-107) mmol/L Carbon Dioxide (21-32) mmol/L Anion Gap (3-11) BUN (7-18) mg/dl Creatinine (0.6-1.4) mg/dl Est Cr Clr Drug Dosing ml/min Est GFR ( Amer) Est GFR (Non-Af Amer) BUN/Creatinine Ratio (10-20) Glucose (70-99) mg/dl POC Glucose 107 H (70-99) mg/dl Estimat Average Glucose 103 mg/dl Hemoglobin A1c 5.2 (4.5-5.6) % Calcium (8.5-10.1) mg/dl Magnesium (1.8-2.4) mg/dl Total Bilirubin (0.2-1) mg/dl Direct Bilirubin (0-0.2) mg/dl AST (15-37) U/L ALT (12-78) U/L Alkaline Phosphatase (45-117) U/L Ammonia 75.4 H (11-32) umol/L Total Protein (6.4-8.2) gm/dl Albumin (3.4-5.0) gm/dl Globulin (2.5-4.0) gm/dl Albumin/Globulin Ratio (0.9-2) Ur Random Sodium mmol/L
[2019-11-19] MEDS: FUROSEMIDE 40 MG TAB PO SCH (10:32)
[2019-11-19 11:14] VITALS: BP 93/55; PULSE 63; TEMP 98.6; O2SAT 98
[2019-11-19] MEDS ORDERED: CARBOHYDRATES FOR HYPOGLYCEMIA PO PRN (12:00)
[2019-11-19] MEDS ORDERED: GLUCOSE 40% GEL 15 GM TUBE PO PRN (12:00)
[2019-11-19] MEDS ORDERED: DEXTROSE 50% 50 ML SYRINGE IV PRN (12:00)
[2019-11-19] MEDS ORDERED: GLUCAGON FOR INJ 1 MG VIAL IM PRN (12:00)
[2019-11-19] MEDS ORDERED: GLUCOSE 10 TABS/TUBE PO PRN (12:00)
--- NOTE | 2019-11-20 08:36 | Discharge Summary ---
Date of Service November 20, 2019 Admission HPI Per Admitting Provider DICTATED BY: Ezra Nicole MD DATE OF ADMISSION: 11/18/2019 CHIEF COMPLAINT: Abdominal pain. HISTORY OF PRESENT ILLNESS: This is a 79-year-old male with past medical history significant for cirrhosis with ascites, status post TIPS procedure in February of this year, history of paroxysmal atrial fibrillation, type 2 diabetes, hypertension, GERD, chronic kidney disease stage III, depression, sleep apnea, not using CPAP currently, umbilical hernia, presents with abdominal pain. As per the , patient might have vomited one time yesterday. Although his appetite is okay. Complaining of abdominal pain, mild to moderate in severity. The patient says that the pain is better now, moving his bowels okay a few times, micturating fine. Says he micturates twice daily. Denies any chest pain or shortness of breath. No cough, no headaches. Ambulates with a walker. The says he was somewhat mildly confused. His ammonia is somewhat elevated, at 52, his creatinine is 1.9, baseline creatinine around 1.3-1.5, hemoglobin 10.8, and WBC is 11.7. CT of abdomen and pelvis was done in the ER preliminary report was unremarkable except for some nonspecific findings and large ascites. . Status post diagnostic paracentesis the ER which was unremarkable. Currently resting comfortably and hemodynamically stable. Very hard to hear. Admission Exam Per Admitting Provider GENERAL: The patient is old and frail, not in acute distress. VITAL SIGNS: Temperature 37.1, pulse 73, respiratory rate 20, blood pressure 89/54, oxygen 94% room air. HEENT: No pallor, no icterus. NECK: No JVD, no neck masses. CARDIOVASCULAR: S1, S2 heard, regular rate and rhythm, no murmur, no gallop. RESPIRATORY SYSTEM: Normal AP diameter. No accessory muscle use. No wheezing, no crackles. ABDOMEN: Soft, bowel sounds present, distended, no guarding, no rigidity, no tenderness.Large umbilical hernia seen. Seems reducible though has pain on palpation. CENTRAL NERVOUS SYSTEM: Alert and oriented. Obeys commands. Moves extremities. EXTREMITIES: No edema, no erythema seen. Principal Diagnosis Generalized abdominal pain with ascites and umbilical hernia-resolved, status post 4 L paracentesis, cirrhosis with no hepatic encephalopathy Discharge Exam Constitutional well developed, + ill appearing and + thin; no acute distress Eyes PERRL, conjunctivae normal, anicteric sclerae ENMT external ear and nose normal, oropharynx normal Neck trachea midline, no thyromegaly Respiratory normal respiratory effort; no respiratory distress Auscultation: lungs clear to auscultation bilaterally Cardiovascular Rate/Rhythm: regular rate and regular rhythm Heart Sounds: no murmur Gastrointestinal (Abdomen) Inspection/Auscultation: + abdomen distended Percussion/Palpation: + abdomen tender (Mildly tender), abdomen soft and + ascites Neurologic moves all extremities; no focal motor deficits Lymphatic no cervical or axillary lymphadenopathy Discharge Data Allergies Allergy/AdvReac Type Severity Reaction Status Date / Time No Known Allergies Allergy Verified 11/17/19 21:48 Consultations 11/18/19 00:20 ED Decision to Admit Stat 11/18/19 02:23 Consult Case Management - Discharge Planning Routine 11/18/19 08:00 Consult Gastroenterology Routine Ordered Studies 11/17/19 22:19 CT abd pelvis wo con Urgent CT head/brain wo con Stat 11/18/19 10:20 US duplex portal hepatic veins Routine 11/18/19 10:22 US paracentesis abd w/image Routine Hospital Course (1) Generalized abdominal pain: Admitted with generalized abdominal pain and confusion CT of the abdomen and pelvis did not show any obstruction in the hernia or intestine Since admission pain has been resolved No more recurrence of abdominal pain (2) Decompensated hepatic cirrhosis: Noted to have mild confusion on admission Ammonia level is 52 Has been taking his diuretics and rifaximin as prescribed Appreciate GI input and recommendation Noted to have ascites Status post diagnostic paracentesis which was negative for any infection No increase in abdominal distention and/or pain (3) Ascites: Noted to have ascites Not tense Might consider paracentesis depending on the symptoms Status post 4 L of paracentesis (4) S/P TIPS (transjugular intrahepatic portosystemic shunt): on 11/19/2019Ignacio have ultrasound of the TIPS to see the patency Sound revealed patency of the TIPS (5) Confusion: No hepatic encephalopathy Mild confusion is resolved No more confusion noted this morning (6) Diabetes mellitus, type II: We will continue current medications and checking her blood sugar (7) HTN (hypertension): Blood pressure remains in the lower side of normal Holding diuretics for impaired kidney function (8) Umbilical hernia: Did not show any obstruction hernia in CT of the abdomen and pelvis No pain and/or discomfort on examination (9) Acute kidney injury: Creatinine went up to 1.9 from 1.3 at baseline Received small dose of IV fluid We will monitor-creatinine normalized DVT prophylaxis SCDs CODE STATUS Full Discharge home this afternoon Total Time Total Time Spent Total Time Spent (In Minutes): 35 minutes Total Time Includes: Examination of the Patient, Discharge Planning, Medication Reconciliation and Communication With Other Providers Discharge Plan Discharge Items Patient Disposition: Home - Self-Care Reason For Visit: ABDOMINAL PAIN Discharge Diagnosis: Generalized abdominal pain with ascites and umbilical hernia-resolved, status post 4 L paracentesis, cirrhosis with no hepatic encephalopathy Condition on Discharge: Fair Activity: Resume your previous activity Non-emergency contact: Primary Care Provider Call non-emergency contact if: you have any medication questions and your symptoms worsen Follow-up/Referrals: Renard Das MD [Primary Care Provider] - 11/26/19 10:45 am (Keep your usual appointment with die lay out worker) Diet: Carb Consistent or DM2 and Low Sodium (2gm) Fluids: 1500ml (6 cups) Addtl Attending Provider Instructions: Please take precaution to avoid fall Continue to take your lactulose and Xifaxan to prevent hepatic encephalopathy Take lactulose another laxative to have a bowel movement about 2-3 times a day Pending Studies at Discharge: No Stand-Alone Forms: Call Back Authorization, [facility], Smoking Cessation Medications and DC Order Prescriptions: Continued artificial tears(hypromellose) 0.3 % gel 1 drops OP QID PRN (Reason: dryness) RF: 0 sodium chloride [Peninsula Saline] 0.65 % aerosol,spray 2 sprays INTNAS QID PRN (Reason: dryness) RF: 0 tamsulosin [Flomax] 0.4 mg Capsule 0.4 mg PO QAM RF: 0 Centrum Silver 400-250 mcg Tablet,Chewable 1 tab PO QAM RF: 0 cholecalciferol (vitamin D3) [Vitamin D3] 2,000 unit tablet 2,000 units PO QAM RF: 0 polyethylene glycol 3350 [Miralax] 17 gram/dose Powder 17 g PO BID PRN (Reason: Constipation) RF: 0 atorvastatin [Lipitor] 10 mg Tablet 10 mg PO HS RF: 0 (DME) lancets Misc MISCELLANEOUS RF: 0 econazole 1 % Cream 1 applic TOPICAL BID RF: 0 omeprazole 20 mg Capsule,Delayed Release(Dr/Ec) 20 mg PO DAILY RF: 0 betamethasone dipropionate 0.05 % Ointment 1 applic TOPICAL BID PRN (Reason: Rash) RF: 0 Restasis 0.05 % Dropperette 1 drp OPHTHALMIC (EYE) Q12H RF: 0 diclofenac sodium 1 % Gel 2 g TOPICAL BID PRN (Reason: Pain) RF: 0 tramadol 50 mg Tablet 50 mg PO DIRECTED PRN (Reason: Pain) RF: 0 azelastine 137 mcg (0.1 %) Aerosol,Ewing 2 spray INTRANASAL BID RF: 0 fluoride (sodium) [Sodium Fluoride 5000 Plus] 1.1 % Cream 1 applic DENTAL BID RF: 0 Magic Mouth Wash 1 dose PO DIRECTED PRN (Reason: MOUTH SORES) RF: 0 loratadine 10 mg Tablet 10 mg PO DAILY PRN (Reason: Allergic Symptoms) RF: 0 Xifaxan 550 mg tablet 550 mg PO BID RF: 0 lactulose 20 gram/30 mL solution 30 g PO TID RF: 0 ipratropium bromide 0.03 % spray,non-aerosol 2 spray INTRANASAL UD RF: 0 Changed furosemide [Lasix] 20 mg Tablet 20 mg PO DAILY Qty: 0 RF: 0 spironolactone [Aldactone] 50 mg Tablet 50 mg PO QAM Qty: 0 RF: 0 Discharge Orders: Discharge Order (Routine); Ordered 11/19/19 Ordered By: Bridget Carson Admission Data Admit Date/Time: 11/18/19 01:34 Attending Provider: Bridget Carson Admit Provider: Ezra Nicole Primary Care Provider: Renard Das Other Providers: Ezra Nicole ; Alvarez Parker Other Interventions: Discharge Summary Assessment (RN) Last Done: 11/19/19 14:38 DC Date/Time DO NOT enter until pt leaves facility: 11/19/19 15:00
== END 2019-11-19 15:00 | disposition home or self-care (01) | DRG 433 ==
LOC: ED 21:05 → 2W 11-18 01:34

== ENCOUNTER 2020-02-16 11:40 | Inpatient (IN) ==
[2020-02-16] MEDS ORDERED: ONDANSETRON INJ 2 MG/ML 2 ML VIAL IV STA (11:43)
[2020-02-16] MEDS ORDERED: PANTOprazole 40 MG in SYRINGE 0 ML IV ONE (11:47)
--- NOTE | 2020-02-16 12:11 | XRay Report ---
XR chest 1V portable CLINICAL HISTORY: 80 years-old Male presenting with weakness. TECHNIQUE: Portable semiupright AP view of the chest was obtained. COMPARISON: 06/11/2019. FINDINGS: Atherosclerosis of the aortic arch. Cardiac silhouette normal in size. Bilateral hilar prominence is likely vascular. No focal opacity. No large effusion or pneumothorax. Degenerative changes of the tho racic spine. Osteopenia noted. Posttraumatic deformity of the right clavicle, unchanged. TIPS noted. Cholecystectomy clips. IMPRESSION: 1. No acute cardiopulmonary disease. ACT 112: Negative or not required by law. Electronically signed by: Naresh Bourne M.D. 02/16/2020 12:10 PM
--- NOTE | 2020-02-16 12:15 | Electrocardiogram Report ---
Test Reason : Blood Pressure : / mmHG Vent. Rate : 121 BPM Atrial Rate : 121 BPM P-R Int : 158 ms QRS Dur : 062 ms QT Int : 306 ms P-R-T Axes : 086 -16 074 degrees QTc Int : 434 ms Poor data quality, interpretation may be adversely affected Sinus tachycardia Low voltage QRS Nonspecific ST and T wave abnormality Abnormal ECG When compared with ECG of 17-NOV-2019 21:24, No significant change was found Confirmed by Navneet Ortega ([id number]) on 02/16/2020 12:15:33 PM Referred By: Confirmed By:Anup Ortega
[2020-02-16 12:16] LABS: Hematocrit (blood only) 38.3 % (42-52); Hemoglobin 12.9 g/dL (14.0-18.0); Mean Corpuscular Hemoglobin 32.7 pg (25-34); Mean Corpuscular Hgb Conc 33.7 g/dL (32-36); Mean Platelet Volume 9.5 fL (7.4-10.4); Platelet Count 202 K/uL (130-400); RDW Coefficient of Variation 14.6 % (11.5-14.5); RDW Standard Deviation 51.9 fL (36.4-46.3); Red Blood Count 3.95 M/uL (4.7-6.1); White Blood Count 14.39 K/uL (4.8-10.8)
[2020-02-16 12:26] LABS: Base Excess VBG -4.9 mEq/L; HCO3 VBG 21 mmol/L; Oxygen Saturation VBG < 60.0 %; PCO2 VBG 42 mmHg (38-50); PO2 VBG 32 mmHg; pH VBG 7.32 (7.36-7.41)
[2020-02-16 12:28] LABS: INR 1.2 (0.9-1.1); Partial Thromboplastin Ratio 0.9; Partial Thromboplastin Time 23.8 Seconds (21.0-31.0); Prothrombin Time 12.4 Seconds (9.0-12.0)
[2020-02-16 12:33] LABS: Alanine Aminotransferase 32 U/L (12-78); Albumin Level 3.5 gm/dl (3.4-5.0); Aspartate Aminotransferase 34 U/L (15-37); BUN Creatinine Ratio 11.5 (10-20); Blood Urea Nitrogen 19 mg/dl (7-18); Calcium 9.4 mg/dl (8.5-10.1); Carbon Dioxide 21 mmol/L (21-32); Chloride 109 mmol/L (98-107); Creatinine Clr Calc Pharmacy 32.5 ml/min; Est GFR (African American) 45.4; Est GFR (Non-African American) 39.2; Glucose 149 mg/dl (70-99); Potassium 4.4 mmol/L (3.5-5.1); Sodium 143 mmol/L (136-145)
--- NOTE | 2020-02-16 12:33 | CT Scan Report ---
CT head/brain wo con CLINICAL HISTORY: 80 years-old Male presenting with altered. TECHNIQUE: Multidetector CT imaging of the head was performed without the use of intravenous contrast . IV contrast: None. One or more dose lowering techniques were used consistent with the principles of ALARA (as low as reasonably achievable), including automatic exposure control, mA or kV adjustment t o individual patient size, and/or use of iterative reconstruction. COMPARISON: 11/17/2019. CT DOSE (mGy.cm): The estimated cumulative dose is 614.27 mGy.cm. FINDINGS: Overnight Caregiver topogram: Unremarkable. Proportional ventricular and sulcal prominence, likely age-related parenchymal volume loss. No hemorr jim. Brain parenchyma normal in appearance with preserved morelos-white differentiation. No acute maryuri torial infarct. No mass effect or midline shift. No extra-axial fluid collection. Mild mucosal thicke jody of the left maxillary sinus. Calvarium intact. IMPRESSION: 1. No acute intracranial abnormality. ACT 112: Negative or not required by law. Electronically signed by: Naresh Bourne M.D. 02/16/2020 12:32 PM
--- NOTE | 2020-02-16 12:34 | Emergency Department Note ---
Impression & Plan Acute hepatic encephalopathy, Incarcerated ventral hernia, SBO (small bowel obstruction), Acute respiratory distress, Acute upper GI bleed ED Provider Note NAME: ADDI BAUTISTA AGE: 80 SEX: M : 1940 ARRIVES VIA: Ambulance INFORMANT: Prehospital personnel ED PROVIDER(S): Theo Pepper DO CHIEF COMPLAINT: Altered mental status HPI: The patient is a 80-year-old male who presented to the emergency department for an evaluation of altered mental status. The patient had symptoms which began approximately 1 to 2 days ago. He does have a history of hepatic encephalopathy. His family members called 911 and the patient was brought to the emergency department via ambulance. 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 He had coffee-ground emesis noted and has coffee grounds around his mouth. The patient offers no complaints but also does not follow commands. History is limited secondary to altered mental status. ROS: See above HPI for pertinent positives & negatives. Review of systems was unable to be obtained at this time. Review of systems and HPI was obtained from the prehospital personnel. PAST MEDICAL HISTORY: See Below PAST SURGICAL HISTORY: See Below FAMILY HISTORY: See Below SOCIAL HISTORY: See Below HOME MEDICATIONS: See Below ALLERGIES: See Below VITALS: See Below PHYSICAL EXAMINATION: GENERAL: The patient is listless but awake. He is looking around the room but does not follow commands. EYES: The conjunctivae are clear. The pupils constricted and minimally reactive to light bilaterally. EARS, NOSE, MOUTH AND THROAT: The nose is without any evidence of any deformity. Mucous membranes are dry. There is coffee-ground emesis noted around the oropharynx. NECK: The neck is nontender and supple. RESPIRATORY: Shallow and clear respirations are noted. There is tachypnea noted on physical exam. CARDIOVASCULAR: Tachycardic and regular rate was noted to auscultation. No definite murmur was noted. GASTROINTESTINAL: The abdomen is moderately distended and diffusely tender. There is a ventral hernia noted around the umbilicus which appears to be indurated and significantly tender to palpation. MUSCULOSKELETAL/EXTREMITIES: There is no evidence of gross deformity full range of motion is noted in the hips and shoulders. SKIN: Skin was warm and dry. There is no pedal edema. NEUROLOGIC: Patient is looking around the room but does not follow commands. He does not appear to be oriented to person place or situation but he will not answer questions at this time. Patient is moving all extremities symmetrically. MEDICAL DECISION MAKING: The patient is a 80-year-old male who presented to the emergency department for altered mental status. There was a reported episode of emesis prior to arrival. The patient had coffee-ground emesis noted around his mouth. On physical exam he appeared to have an incarcerated umbilical hernia which was noted by history but was treated with a binder. The patient continued to have episodes of emesis and given his altered mental status I felt his airway could be compromised. For this reason the decision was made to intubate the patient using rapid sequence intubation and glide a scope. The patient tolerated this well. I discussed the patient's laboratory and radiographic studies with his significant other. I discussed his case with the on-call general surgical group as well as the on- call [facility] hospitalist group. They have agreed to evaluate the patient in the emergency department for further management and disposition. The patient was treated with IV fluids, IV pain medication, IV antibiotics, and IV antiemetics. He was also given proton pump inhibitors. He was reevaluated multiple times. He responded well to IV rehydration. OG tube was placed. The patient started to have tachycardia on the monitoring coordinator. ST segments appeared abnormal. A 12-lead EKG did reveal low lateral ST segment elevations but this could be rate related. After evaluation by the anesthesiology and cardiology team we felt the patient's EKG findings could be secondary to rate related ischemia. He was given metoprolol 5 mg IV. Repeat EKG showed normal sinus rhythm with resolution of the previously noted ST segment abnormalities. It is difficult to ascertain if this was rate related versus artifact from poor baseline but given the patient's acute surgical needs this will likely take precedence over the abnormal EKG at this time. Bedside echo is currently being done. Provider summary Triage Nursing notes reviewed. Prior medical records reviewed Additional history was obtained from the patient's significant other as well as the patient's [id number]. Vital Signs: reviewed and remarkable for tachycardia and tachypnea. The patient had no fever. Differential diagnosis: Etiologies such as appendicitis, diverticulitis, obstruction, inflammatory bowel disease, renal colic, PUD, biliary pathology, pancreatitis, mesenteric ischemia, aortic pathology, infections, genitourinary, UTI, perforated viscus, as well as others were entertained. ER treatment provided: See below Diagnostics interpreted by me: ECG: EKG was obtained in the emergency department. My interpretation is sinus tachycardia at 121 bpm. There is no ectopy. Diffuse ST depressions were noted. This was compared to a tracing from November 17, 2019. There was an increase in the rate otherwise no significant change. Cardiac Monitoring: An order was placed for continuous cardiac monitoring. The monitor shows a rate of 125 with sinus tachycardia rhythm. Laboratory studies: As stated above and show below. Imaging studies: CT head/brain wo con CLINICAL HISTORY: 80 years-old Male presenting with altered. TECHNIQUE: Multidetector CT imaging of the head was performed without the use of intravenous contrast. IV contrast: None. One or more dose lowering techniques were used consistent with the principles of ALARA (as low as reasonably achi evable), including automatic exposure control, mA or kV adjustment to individual patient size, and/or use of iterative reconstruction. COMPARISON: 11/17/2019. CT DOSE (mGy.cm): The estimated cumulative dose is 614.27 mGy.cm. FINDINGS: Service Learning Coordinator topogram: Unremarkable. Proportional ventricular and sulcal prominence, likely age-related parenchymal volume loss. No hemorrhage. Brain parenchyma normal in appearance with preserved morelos-white differentiation. No acute territorial infarct. No mass effect or midline shift. No extra-axial fluid collection. Mild mucosal thickening of the left maxillary sinus. Calvarium intact. IMPRESSION: 1. No acute intracranial abnormality. ACT 112: Negative or not required by law. Electronically signed by: Naresh Bourne M.D. 02/16/2020 12:32 PM Dictated: 02/16/20 1230 Transcribed: 02/16/20 1230 XR chest 1V portable CLINICAL HISTORY: 80 years-old Male presenting with weakness. TECHNIQUE: Portable semiupright AP view of the chest was obtained. COMPARISON: 06/11/2019. FINDINGS: Atherosclerosis of the aortic arch. Cardiac silhouette normal in size. Bilateral hilar prominence is likely vascular. No focal opacity. No large effusion or pneumothorax. Degenerative changes of the thoracic spine. Osteopenia noted. Posttraumatic deformity of the right clavicle, unchanged. TIPS noted. Cholecystectomy clips. IMPRESSION: 1. No acute cardiopulmonary disease. ACT 112: Negative or not required by law. Electronically signed by: Naresh Bourne M.D. 02/16/2020 12:10 PM Dictated: 02/16/20 1209 Transcribed: 02/16/[address] abd pelvis wo con CLINICAL HISTORY: 80 years-old Male presenting with vomiting. TECHNIQUE: Multidetector CT of the abdomen and pelvis was performed without the use of intravenous contrast. IV contrast: None. One or more dose lowering techniques were used consistent with the principles of ALARA (as low as reas onably achievable), including automatic exposure control, mA or kV adjustment to individual patient size, and/or use of iterative reconstruction. COMPARISON: 11/17/2019. CT DOSE (mGy.cm): The estimated cumulative dose is 501.99 mGy.cm. FINDINGS: Service Learning Coordinator topogram: Cardiomegaly. TIPS also noted. Positioning of the arms over the upper abdomen mildly degrades image quality limiting diagnostic sensitivity. Lung bases: Normal heart size. Coronary artery and aortic valve calcification. No pericardial or pleural effusion. No focal infiltrate or nodule at the lung bases. Liver: The liver is atrophic compatible with cirrhosis. A transjugular intrahepatic portosystemic shunt is in place. Normal density of the liver. Biliary: Pneumobilia may be present centrally in both lobes. No gross biliary du ctal dilatation allowing for noncontrast technique. Gallbladder surgically absent. Pancreas: Mild parenchymal atrophy. Spleen: Normal noncontrast appearance. Adrenal glands: Normal noncontrast appearance. Kidneys and ureters: Few cysts are noted. No nephrolithiasis or hydronephrosis. Ureters nondistended. Bladder: Circumferential bladder wall thickening. Pelvic organs: Normal noncontrast appearance. Bowel: Normal appendix. Mid ileum is dilated over 4 cm and fluid-filled with a suspected focal transition point in the midline ventral abdomen, where there may be a short segment herniated loop of small bowel. No such herniation was present on the prior exam. Distal ileum is decompressed. Evaluation significantly limited by lack of intravenous and oral contrast. Peritoneal cavity: Decreased volume of ascites, which is now small to moderate. Ascites also contained within the multilocular ventral hernia. No pneumatosis or free intraperitoneal gas. Lymph nodes: No gross lymphadenopathy allowing for noncontrast technique. Vasculature: Atherosclerosis of the normal caliber abdominal aorta. Abdominal wall: Ventral hernia in the periumbilical region is again multilocular in appearance and contains ascites. A short segment of herniated segment of small bowel is also suspected within the hernia sac, which has a relatively narrow neck. The hernia neck is not well delineated but measures approximately 3 cm in comparison to the sac diameter of 13 cm. Severe gynecomastia also noted bilaterally. Musculoskeletal: Degenerative changes of the spine. IMPRESSION: 1. Evaluation degraded by lack of intravenous and oral contrast as well as positioning of the arms over the upper abdomen. Allowing for this, findings highly concerning for a high-grade partial or complete small bowel obstruction. This may be due to interval development of a herniated short segment of small bowel within the ventral hernia. Surgical consultation is recommended. 2. 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 3. Decreased volume ascites. No current evidence of portal hypertension. 4. Chronic bladder outlet obstruction may be present. The report will be called/faxed according to standard departmental protocol. ACT 112: Negative or not required by law. Electronically signed by: Naresh Bourne M.D. 02/16/2020 12:55 PM Dictated: 02/16/20 1237 Transcribed: 02/16/20 1238 XR KUB/Abdomen 1 view CLINICAL HISTORY: 80 years-old Male presenting with OGT. TECHNIQUE: Single supine view of the abdomen was obtained. COMPARISON: CT from earlier today. FINDINGS: Orogastric tube/nasogastric tube descends below the diaphragm looped within the gastric lumen with the terminus oriented in a retrograde fashion at the level of the GE junction, sidehole within the gastric lumen. Cholecystectomy clips noted. TIPS in place. Endotracheal tube and several external leads noted. Stacked appearance of gaseous distended small bowel with an apparent diameter of almost 5 cm though this may be affected by magnification. No gross pneumoperitoneum. Added density of the abdomen correlates with underlying as cites. Allowing for bowel gas and stool, no calcifications to suggest nephrolithiasis. Degenerative changes of the spine. Lung bases clear. IMPRESSION: 1. Orogastric tube looped within the stomach with terminus oriented retrograde at the level of the GE junction, sidehole within the gastric lumen. 2. Small bowel obstruction. 3. Ascites. ACT 112: Negative or not required by law. Electronically signed by: Naresh Bourne M.D. 02/16/2020 1:37 PM Dictated: 02/16/20 1335 Transcribed: 02/16/20 1335 XR chest 1V portable CLINICAL HISTORY: 80 years-old Male presenting with ETT. TECHNIQUE: Portable supine AP view of the chest was obtained. COMPARISON: 02/16/2020 at 11:54 AM. FINDINGS: Interval intubation with the endotracheal tube terminating approximately 4 cm from the gareth. Nasogastric tube descends below the diaphragm with the terminus potentially looped and oriented in a retrograde fashion at the level of the GE junction. This is incompletely visualized. Atherosclerosis of the aortic arch. Cardiac silhouette normal in size. No focal opacity. No large effusion or pneumothorax. Degenerative changes of the thoracic spine. Upper abdomen normal. IMPRESSION: 1. Appropriately positioned endotracheal tube. 2. Nasogastric tube terminates may be looped and oriented retrograde at the level of the GE junction. Please see separately dictated abdominal radiograph. ACT 112: Negative or not required by law. Electronically signed by: Naresh Bourne M.D. 02/16/2020 1:35 PM Dictated: 02/16/20 1333 Transcribed: 02/16/20 1333 Consultation(s): 1235: I discussed this case with the on-call general surgical service. I discussed this case with Tasha who was going to call back after discussion with the general surgeon. 1240: I discussed the patient's condition with his , Karma. She states that the patient awoke this morning with emesis. He was also confused and she was concerned that his ammonia level was too high. 1314: I discussed this case with Alondra Jara who is covering for the [facility] hospitalist group. They have agreed to evaluate the patient in the emergency department for further management and disposition. 1430: I discussed this case with Dr. Calzada with [facility] cardiology. He is at the bedside evaluating the patient for the abnormal EKG. Procedures: Endotracheal Intubation Indication bowel obstruction, vomiting and altered mental status. The patient was on 100% oxygen via NRB prior to the procedure. Suction, airway equipment, RSI drugs, respiratory equipment, and appropriate personnel were prepared prior to the initiation of the procedure. A time out was taken. Induction was performed with etomidate and succinylcholine. After observing the clinical benefit of the medications, the airway was easily visualized utilizing a kaleidoscope. A 7.5 size ETT tube was placed atraumatically to 23 cm using standard technique. The cuff inflated without signs of malfunction. There were bilateral breath sounds, positive colormetric change, no gastric sounds, a good capnography waveform, and post procedure pulse oximetry was 99 %. Post intubation sedation and paralysis was administered using propofol. There were no complications. Critical Care: I have personally spent greater than 45 minutes of critical care time in the direct management of this patient. This includes bedside care, interpretation o f diagnostic studies, and testing, discussion with consultants, patient, and family members, and other required patient management activities. This 45 minutes is in excess of all separately billable procedures. 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 Elevated LFTs suspected to be from DILI vs AIH. LFTs normalized now so immunosuppression use was deferred. 4L fluid drained 12/15. Abdomen noticeably distended at PAT appt on 12/31/18. BPH (benign prostatic hyperplasia) (Chronic) Cirrhosis (Chronic) Depression (Chronic) Diabetes mellitus, type II (Chronic) PER , [facility] RECENTLY D/C. GERD (gastroesophageal reflux disease) (Chronic) History of abdominal paracentesis (Resolved) 06/11/19, 02/08/19, 11/2018 HLD (hyperlipidemia) (Chronic) HTN (hypertension) (Chronic) No current meds Paroxysmal A-fib (Chronic) [facility] Poor historian PVCs (premature ventricular contractions) (Chronic) S/P admission to ICU (intensive care unit) Sleep apnea (Chronic) NO DEVICE USED Spontaneous bacterial peritonitis (Resolved) Jun 2018. Pt was admitted for a fib RVR and ascites, fluid drawn from abdomen showed SBP. Treated with ABX and discharged. [facility] (Tyler/Lizzette Mitchell) and Dr. Monreal (Hepatology). Umbilical hernia Upper GI bleed Surgical History History of adenoidectomy (Chronic) 01/11/19 History of cataract surgery (Chronic) RT/LEFT History of colonoscopy (Chronic) 01/30/16 History of ERCP (Chronic) 05/12/18 - stent removed History of esophagogastroduodenoscopy (EGD) (Chronic) 11/07/2010, 06/23/18 - with endoscopic US History of eye surgery (Chronic) 2008 - TEAR DUCT OPENED UP History of hernia repair (Chronic) 04/02/18 History of intraocular lens implant (Chronic) 2008 - Bilateral History of laryngoscopy (Chronic) 01/11/19 - with biopsies + right modified radical cervical lymphadenectomy History of liver biopsy (Chronic) 05/2018 History of tonsillectomy (Chronic) 01/11/19 History of tooth extraction (Chronic) 01/11/19 S/P cholecystectomy (Chronic) 04/02/2018. Yan 2, grade 1 view. 8.0 ETT. 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 Sister , Passed age 6 months of pneumonia No problems noted. Brother , Passed in late 50's of [place] No problems noted. Sister , Passed in 60's of diabetic complications No problems noted. Sister No problems noted. Daughter Breast cancer, Onset Age: 40 Stage III - Currently doing well Brother No problems noted. Brother No problems noted. 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 Feels Safe at Home: Yes Smoking Status: Former smoker Tobacco Type: smokeless tobacco ; packs per day: 0.5 ; Second Hand Exposure: No ; Childhood Exposure to Second-Hand Smoke: Yes caffeine: Yes (3 cups of coffee/week with tea inbetween ) during the past year weight has: decreased > 10 lbs Dental Care, Regularly: No Allergies Allergies Allergy/AdvReac Type Severity Reaction Status Date / Time No Known Allergies Allergy Verified 02/16/20 13:03 Home Meds Home Medications Medication Instructions Recorded Confirmed Centrum Silver 1 tab PO QAM 12/21/18 02/16/20 tamsulosin [Flomax] 0.4 mg PO QAM 12/21/18 02/16/20 loratadine 10 mg PO DAILY PRN 01/07/19 02/16/20 polyethylene glycol 3350 [Miralax] 17 g PO DAILY PRN 01/27/19 02/16/20 artificial tears(hypromellose) 0.3 1 drops OP QID PRN 02/17/19 02/16/20 % eye gel cholecalciferol (vitamin D3) 50 2,000 units PO QAM tab 02/17/19 02/16/20 mcg (2,000 unit) tablet sodium chloride 0.65 % nasal spray 2 sprays INTNAS QID PRN 02/17/19 02/16/20 aerosol Xifaxan 550 mg PO BID 06/12/19 02/16/20 lactulose 45 ml PO TID 08/06/19 02/16/20 Restasis 1 drp OPHTHALMIC (EYE) Q12H 09/22/19 02/16/20 atorvastatin [Lipitor] 10 mg PO HS 09/22/19 02/16/20 lancets 09/22/19 02/16/20 omeprazole 20 mg PO DAILY 09/22/19 02/16/20 ipratropium bromide 2 spray INTRANASAL QID PRN 10/02/19 02/16/20 azelastine 2 spray INTRANASAL BID 11/17/19 02/16/20 fluoride (sodium) [PreviDent 5000 1 applic DENTAL TID 11/17/19 02/16/20 Plus] ciprofloxacin HCl 500 mg PO DAILY 01/11/20 02/16/20 fluoride (sodium) [DentaGel] 1 applic DENTAL DAILY 02/16/20 02/16/20 furosemide [Lasix] 20 mg PO DAILY 02/16/20 02/16/20 ondansetron 4 mg PO Q8 PRN 02/16/20 02/16/20 spironolactone [Aldactone] 100 mg PO QAM 02/16/20 02/16/20 Previous Rx's Medication Instructions Recorded pilocarpine HCl 5 mg tablet 5 mg PO TID #90 tab 12/23/19 Results & Data (ED) Vital Signs Vital Signs - 24 hr 02/16/20 11:43 02/16/20 11:48 02/16/20 12:00 Temperature 37 C Temperature Source Oral Pulse Rate 120 H 125 H 114 H Pulse Rate [Right Radial] Pulse Rate from SpO2 Sensor 116 H 115 H Pulse Rhythm Regular Pulse Rhythm [Right Radial] Pulse Strength Normal Pulse Strength [Right Radial] Respiratory Rate 25 H 25 H 22 Respiratory Effort / Characteristics Non-Labored Spontaneous Respiratory Depth Normal Respiratory Pattern Regular Blood Pressure 112/88 112/88 108/75 Blood Pressure [Left Arm] Blood Pressure [Left Radial Artery] Blood Pressure Mean 96 95 86 Blood Pressure Mean [Left Arm] Blood Pressure Mean [Left Radial Artery] Blood Pressure Position Lying Blood Pressure Position [Left Arm] Blood Pressure Position [Left Radial Artery] Pulse Oximetry 95 96 97 Oxygen Delivery Method Room Air Room Air Fraction of Inspired Oxygen SaO2/FiO2 Ratio Sepsis Recent Fever Within 48 Hours No Sepsis New/Unexplained Change in Mental Status Yes Sepsis Action Taken by Nursing No Action Required End-Tidal CO2 02/16/20 12:31 02/16/20 12:56 02/16/20 13:00 Temperature Temperature Source Pulse Rate 119 H 126 H 127 H Pulse Rate [Right Radial] Pulse Rate from SpO2 Sensor 118 H 130 H 127 H Pulse Rhythm Pulse Rhythm [Right Radial] Pulse Strength Pulse Strength [Right Radial] Respiratory Rate 24 23 31 H Respiratory Effort / Characteristics Respiratory Depth Respiratory Pattern Blood Pressure 145/88 H 106/84 139/84 Blood Pressure [Left Arm] Blood Pressure [Left Radial Artery] Blood Pressure Mean 96 90 103 Blood Pressure Mean [Left Arm] Blood Pressure Mean [Left Radial Artery] Blood Pressure Position Blood Pressure Position [Left Arm] Blood Pressure Position [Left Radial Artery] Pulse Oximetry 97 92 97 Oxygen Delivery Method Fraction of Inspired Oxygen SaO2/FiO2 Ratio Sepsis Recent Fever Within 48 Hours Sepsis New/Unexplained Change in Mental Status Sepsis Action Taken by Nursing End-Tidal CO2 02/16/20 13:15 02/16/20 13:30 02/16/20 13:45 Temperature Temperature Source Pulse Rate 132 H 127 H 123 H Pulse Rate [Right Radial] Pulse Rate from SpO2 Sensor 134 H 127 H 125 H Pulse Rhythm Pulse Rhythm [Right Radial] Pulse Strength Pulse Strength [Right Radial] Respiratory Rate 16 Respiratory Effort / Characteristics Respiratory Depth Respiratory Pattern Blood Pressure 165/91 H 134/96 126/95 Blood Pressure [Left Arm] Blood Pressure [Left Radial Artery] Blood Pressure Mean 112 103 107 Blood Pressure Mean [Left Arm] Blood Pressure Mean [Left Radial Artery] Blood Pressure Position Blood Pressure Position [Left Arm] Blood Pressure Position [Left Radial Artery] Pulse Oximetry 92 98 99 Oxygen Delivery Method Fraction of Inspired Oxygen 40 SaO2/FiO2 Ratio Sepsis Recent Fever Within 48 Hours Sepsis New/Unexplained Change in Mental Status Sepsis Action Taken by Nursing End-Tidal CO2 39 37 34 02/16/20 14:00 02/16/20 14:15 02/16/20 14:24 Temperature Temperature Source Pulse Rate 119 H 113 H 99 H Pulse Rate [Right Radial] Pulse Rate from SpO2 Sensor 119 H 114 H 99 H Pulse Rhythm Pulse Rhythm [Right Radial] Pulse Strength Pulse Strength [Right Radial] Respiratory Rate Respiratory Effort / Characteristics Respiratory Depth Respiratory Pattern Blood Pressure 133/79 125/84 117/90 Blood Pressure [Left Arm] Blood Pressure [Left Radial Artery] Blood Pressure Mean 94 93 99 Blood Pressure Mean [Left Arm] Blood Pressure Mean [Left Radial Artery] Blood Pressure Position Blood Pressure Position [Left Arm] Blood Pressure Position [Left Radial Artery] Pulse Oximetry 100 100 99 Oxygen Delivery Method Fraction of Inspired Oxygen SaO2/FiO2 Ratio Sepsis Recent Fever Within 48 Hours Sepsis New/Unexplained Change in Mental Status Sepsis Action Taken by Nursing End-Tidal CO2 30 30 28 02/16/20 14:30 02/16/20 14:45 02/16/20 14:55 Temperature Temperature Source Pulse Rate 84 93 H Pulse Rate [Right Radial] 84 Pulse Rate from SpO2 Sensor 92 H 94 H Pulse Rhythm Pulse Rhythm [Right Radial] Regular Pulse Strength Pulse Strength [Right Radial] Normal Respiratory Rate 16 Respiratory Effort / Characteristics Mechanically Ventilated Respiratory Depth Normal Respiratory Pattern Regular Blood Pressure 108/66 113/67 Blood Pressure [Left Arm] 122/77 Blood Pressure [Left Radial Artery] 135/63 Blood Pressure Mean 75 79 Blood Pressure Mean [Left Arm] 92 Blood Pressure Mean [Left Radial Artery] 87 Blood Pressure Position Blood Pressure Position [Left Arm] Lying Blood Pressure Position [Left Radial Artery] Lying Pulse Oximetry 99 90 92 Oxygen Delivery Method Mechanical Vent Fraction of Inspired Oxygen 40 SaO2/FiO2 Ratio 230 Sepsis Recent Fever Within 48 Hours Sepsis New/Unexplained Change in Mental Status Sepsis Action Taken by Nursing End-Tidal CO2 27 37 25 02/16/20 14:57 Temperature Temperature Source Pulse Rate Pulse Rate [Right Radial] Pulse Rate from SpO2 Sensor Pulse Rhythm Pulse Rhythm [Right Radial] Pulse Strength Pulse Strength [Right Radial] Respiratory Rate Respiratory Effort / Characteristics Respiratory Depth Respiratory Pattern Blood Pressure 110/64 Blood Pressure [Left Arm] Blood Pressure [Left Radial Artery] Blood Pressure Mean 69 Blood Pressure Mean [Left Arm] Blood Pressure Mean [Left Radial Artery] Blood Pressure Position Blood Pressure Position [Left Arm] Blood Pressure Position [Left Radial Artery] Pulse Oximetry Oxygen Delivery Method Fraction of Inspired Oxygen SaO2/FiO2 Ratio Sepsis Recent Fever Within 48 Hours Sepsis New/Unexplained Change in Mental Status Sepsis Action Taken by Nursing End-Tidal CO2 Home Medications Current Medication List: was personally reviewed by me Laboratory Data Attestation: I reviewed the patient's lab results. Result diagrams: 02/17/20 04:15 02/17/20 04:18 Lab Results 02/16/20 02/16/20 02/16/20 Range/Units 11:58 11:58 11:58 WBC 14.39 H (4.8-10.8) K/uL RBC 3.95 L (4.7-6.1) M/uL Hgb 12.9 L (14.0-18.0) g/dL POC Hgb (14.0-18.0) g/dl Hct 38.3 L (42-52) % POC Hct (42-52) % MCV 97.0 (80-100) fL MCH 32.7 (25-34) pg MCHC 33.7 (32-36) g/dL RDW Std Deviation 51.9 H (36.4-46.3) fL RDW Coeff of Scott 14.6 H (11.5-14.5) % Plt Count 202 (130-400) K/uL MPV 9.5 (7.4-10.4) fL Immature Gran % (Auto) 0.2 % Neut % (Auto) 88.9 % Lymph % (Auto) 6.3 % [place] % (Auto) 4.4 % Eos % (Auto) 0.1 % Baso % (Auto) 0.1 % Immature Gran # (Auto) 0.03 H (0.00-0.02) K/uL Neut # (Auto) 12.78 H (1.4-6.5) K/uL Lymph # (Auto) 0.91 L (1.2-3.4) K/uL [place] # (Auto) 0.64 H (0.11-0.59) K/uL Eos # (Auto) 0.01 (0-0.5) K/uL Baso # (Auto) 0.02 (0-0.2) K/uL Echinocytes 2+ PT 12.4 H (9.0-12.0) Seconds INR 1.2 H (0.9-1.1) APTT 23.8 (21.0-31.0) Seconds PTT Ratio 0.9 POC pH (7.35-7.45) POC pCO2 (35-46) mmHg POC pO2 (80-95) mmHg POC HCO3 (19-24) juve/L POC Base Excess (-9-1.8) juve/L POC ABG O2 Sat (90-95) % VBG pH (7.36-7.41) VBG pCO2 (38-50) mmHg VBG pO2 mmHg VBG HCO3 mmol/L VBG O2 Saturation % VBG Base Excess mEq/L Barometric Pressure mm/Hg POC Sodium (135-144) mmol/L Sodium 143 (136-145) mmol/L POC Potassium (3.3-5.0) mmol/L Potassium 4.4 (3.5-5.1) mmol/L POC Chloride (101-112) mmol/L Chloride 109 H (98-107) mmol/L Carbon Dioxide 21 (21-32) mmol/L POC Total CO2 (24-31) mEq/l Anion Gap 13.0 H (3-11) POC Anion Gap (16-25) mmol/L POC BUN (7-18) mg/dl BUN 19 H (7-18) mg/dl Creatinine 1.64 H (0.6-1.4) mg/dl POC Creatinine (0.6-1.3) mg/dl Est Cr Clr Drug Dosing 32.5 ml/min Est GFR ( Amer) 45.4 Est GFR (Non-Af Amer) 39.2 BUN/Creatinine Ratio 11.5 (10-20) Glucose 149 H (70-99) mg/dl POC Glucose (other) (70-99) mg/dl Calcium 9.4 (8.5-10.1) mg/dl POC Ioniz Calcium Estephania (1.12-1.32) mmol/l Magnesium 2.0 (1.8-2.4) mg/dl Total Bilirubin 1.8 H (0.2-1) mg/dl AST 34 (15-37) U/L ALT 32 (12-78) U/L Alkaline Phosphatase 78 (45-117) U/L Ammonia (11-32) umol/L Total Creatine Kinase 116 (39-308) U/L Troponin I < 0.015 (0-0.045) ng/ml Total Protein 7.4 (6.4-8.2) gm/dl Albumin 3.5 (3.4-5.0) gm/dl Globulin 3.9 (2.5-4.0) gm/dl Albumin/Globulin Ratio 0.9 (0.9-2) TSH 7.550 H (0.300-4.500) uIu/ml Free T4 1.00 (0.8-1.6) ng/dl Urine Color Urine Appearance (Clear) Urine pH (4.5-7.5) Ur Specific [place] (1.000-1.030) Urine Protein (Negative) Urine Glucose (UA) (Negative) Urine Ketones (Negative) Urine Blood (Negative) Urine Nitrite (Negative) Urine Bilirubin (Negative) Urine Urobilinogen (Negative) Ur Leukocyte Esterase (Negative) Urine WBC (Auto) (0-5) /hpf Urine RBC (Auto) (0-4) /hpf U Hyaline Cast (Auto) (0-5) /lpf U Epithel Cells (Auto) (0-5) /lpf Urine Bacteria (Auto) (Negative) Urine Mucus (None Prsent) Urine Yeast Blood Type Antibody Screen 02/16/20 02/16/20 02/16/20 Range/Units 11:58 11:58 11:58 WBC (4.8-10.8) K/uL RBC (4.7-6.1) M/uL Hgb (14.0-18.0) g/dL POC Hgb (14.0-18.0) g/dl Hct (42-52) % POC Hct (42-52) % MCV (80-100) fL MCH (25-34) pg MCHC (32-36) g/dL RDW Std Deviation (36.4-46.3) fL RDW Coeff of Scott (11.5-14.5) % Plt Count (130-400) K/uL MPV (7.4-10.4) fL Immature Gran % (Auto) % Neut % (Auto) % Lymph % (Auto) % [place] % (Auto) % Eos % (Auto) % Baso % (Auto) % Immature Gran # (Auto) (0.00-0.02) K/uL Neut # (Auto) (1.4-6.5) K/uL Lymph # (Auto) (1.2-3.4) K/uL [place] # (Auto) (0.11-0.59) K/uL Eos # (Auto) (0-0.5) K/uL Baso # (Auto) (0-0.2) K/uL Echinocytes PT (9.0-12.0) Seconds INR (0.9-1.1) APTT (21.0-31.0) Seconds PTT Ratio POC pH (7.35-7.45) POC pCO2 (35-46) mmHg POC pO2 (80-95) mmHg POC HCO3 (19-24) juve/L POC Base Excess (-9-1.8) juve/L POC ABG O2 Sat (90-95) % VBG pH 7.32 L (7.36-7.41) VBG pCO2 42 (38-50) mmHg VBG pO2 32 mmHg VBG HCO3 21 mmol/L VBG O2 Saturation < 60.0 % VBG Base Excess -4.9 mEq/L Barometric Pressure 731.2 mm/Hg POC Sodium (135-144) mmol/L Sodium (136-145) mmol/L POC Potassium (3.3-5.0) mmol/L Potassium (3.5-5.1) mmol/L POC Chloride (101-112) mmol/L Chloride (98-107) mmol/L Carbon Dioxide (21-32) mmol/L POC Total CO2 (24-31) mEq/l Anion Gap (3-11) POC Anion Gap (16-25) mmol/L POC BUN (7-18) mg/dl BUN (7-18) mg/dl Creatinine (0.6-1.4) mg/dl POC Creatinine (0.6-1.3) mg/dl Est Cr Clr Drug Dosing ml/min Est GFR ( Amer) Est GFR (Non-Af Amer) BUN/Creatinine Ratio (10-20) Glucose (70-99) mg/dl POC Glucose (other) (70-99) mg/dl Calcium (8.5-10.1) mg/dl POC Ioniz Calcium Estephania (1.12-1.32) mmol/l Magnesium (1.8-2.4) mg/dl Total Bilirubin (0.2-1) mg/dl AST (15-37) U/L ALT (12-78) U/L Alkaline Phosphatase (45-117) U/L Ammonia 90.5 H (11-32) umol/L Total Creatine Kinase (39-308) U/L Troponin I (0-0.045) ng/ml Total Protein (6.4-8.2) gm/dl Albumin (3.4-5.0) gm/dl Globulin (2.5-4.0) gm/dl Albumin/Globulin Ratio (0.9-2) TSH (0.300-4.500) uIu/ml Free T4 (0.8-1.6) ng/dl Urine Color Urine Appearance (Clear) Urine pH (4.5-7.5) Ur Specific [place] (1.000-1.030) Urine Protein (Negative) Urine Glucose (UA) (Negative) Urine Ketones (Negative) Urine Blood (Negative) Urine Nitrite (Negative) Urine Bilirubin (Negative) Urine Urobilinogen (Negative) Ur Leukocyte Esterase (Negative) Urine WBC (Auto) (0-5) /hpf Urine RBC (Auto) (0-4) /hpf U Hyaline Cast (Auto) (0-5) /lpf U Epithel Cells (Auto) (0-5) /lpf Urine Bacteria (Auto) (Negative) Urine Mucus (None Prsent) Urine Yeast Blood Type O Positive Antibody Screen NEGATIVE 02/16/20 02/16/20 02/16/20 Range/Units 12:45 15:25 15:37 WBC (4.8-10.8) K/uL RBC (4.7-6.1) M/uL Hgb (14.0-18.0) g/dL POC Hgb 9.2 L 8.5 L (14.0-18.0) g/dl Hct (42-52) % POC Hct 27 L 25 L (42-52) % MCV (80-100) fL MCH (25-34) pg MCHC (32-36) g/dL RDW Std Deviation (36.4-46.3) fL RDW Coeff of Scott (11.5-14.5) % Plt Count (130-400) K/uL MPV (7.4-10.4) fL Immature Gran % (Auto) % Neut % (Auto) % Lymph % (Auto) % [place] % (Auto) % Eos % (Auto) % Baso % (Auto) % Immature Gran # (Auto) (0.00-0.02) K/uL Neut # (Auto) (1.4-6.5) K/uL Lymph # (Auto) (1.2-3.4) K/uL [place] # (Auto) (0.11-0.59) K/uL Eos # (Auto) (0-0.5) K/uL Baso # (Auto) (0-0.2) K/uL Echinocytes PT (9.0-12.0) Seconds INR (0.9-1.1) APTT (21.0-31.0) Seconds PTT Ratio POC pH 7.32 L (7.35-7.45) POC pCO2 42 (35-46) mmHg POC pO2 263 H (80-95) mmHg POC HCO3 22 (19-24) juve/L POC Base Excess -5.0 (-9-1.8) juve/L POC ABG O2 Sat 100.0 H (90-95) % VBG pH (7.36-7.41) VBG pCO2 (38-50) mmHg VBG pO2 mmHg VBG HCO3 mmol/L VBG O2 Saturation % VBG Base Excess mEq/L Barometric Pressure mm/Hg POC Sodium 144 144 (135-144) mmol/L Sodium (136-145) mmol/L POC Potassium 3.8 3.6 (3.3-5.0) mmol/L Potassium (3.5-5.1) mmol/L POC Chloride 111 (101-112) mmol/L Chloride (98-107) mmol/L Carbon Dioxide (21-32) mmol/L POC Total CO2 21 L 23 L (24-31) mEq/l Anion Gap (3-11) POC Anion Gap 16.0 (16-25) mmol/L POC BUN 16 (7-18) mg/dl BUN (7-18) mg/dl Creatinine (0.6-1.4) mg/dl POC Creatinine 1.1 (0.6-1.3) mg/dl Est Cr Clr Drug Dosing ml/min Est GFR ( Amer) Est GFR (Non-Af Amer) BUN/Creatinine Ratio (10-20) Glucose (70-99) mg/dl POC Glucose (other) 137 H (70-99) mg/dl Calcium (8.5-10.1) mg/dl POC Ioniz Calcium Estephania 1.18 (1.12-1.32) mmol/l Magnesium (1.8-2.4) mg/dl Total Bilirubin (0.2-1) mg/dl AST (15-37) U/L ALT (12-78) U/L Alkaline Phosphatase (45-117) U/L Ammonia (11-32) umol/L Total Creatine Kinase (39-308) U/L Troponin I (0-0.045) ng/ml Total Protein (6.4-8.2) gm/dl Albumin (3.4-5.0) gm/dl Globulin (2.5-4.0) gm/dl Albumin/Globulin Ratio (0.9-2) TSH (0.300-4.500) uIu/ml Free T4 (0.8-1.6) ng/dl Urine Color Dark Yellow Urine Appearance Clear (Clear) Urine pH 5.0 (4.5-7.5) Ur Specific [place] 1.027 (1.000-1.030) Urine Protein Trace H (Negative) Urine Glucose (UA) Negative (Negative) Urine Ketones Trace H (Negative) Urine Blood Negative (Negative) Urine Nitrite Negative (Negative) Urine Bilirubin Negative (Negative) Urine Urobilinogen Negative (Negative) Ur Leukocyte Esterase Negative (Negative) Urine WBC (Auto) 0 (0-5) /hpf Urine RBC (Auto) 0-4 (0-4) /hpf U Hyaline Cast (Auto) 1-5 (0-5) /lpf U Epithel Cells (Auto) 0-5 (0-5) /lpf Urine Bacteria (Auto) Negative (Negative) Urine Mucus Present A (None Prsent) Urine Yeast Not Reportable Blood Type Antibody Screen Administered Medications Octreotide Acetate 500 mcg/ (Sodium Chloride) 105 mls @ 10.5 mls/hr IV .Q10H [facility] Stop: 03/17/20 13:29 Last Admin: 02/17/20 02:37 Dose: 50 mcg/hr, 10.5 mls/hr Documented by: [id number] Infusion: 02/17/20 02:37 Dose: 50 mcg/hr, 10.5 mls/hr Documented by: [id number] Admin: 02/16/20 17:28 Dose: 50 mcg/hr, 10.5 mls/hr Documented by: [id number] Admin: 02/16/20 15:19 Dose: Not Given Documented by: [id number] Pantoprazole Sodium 40 mg/ (Dextrose) 100 mls @ 20 mls/hr IV Q5H [facility] Stop: 03/17/20 13:44 Last Admin: 02/17/20 02:41 Dose: 20 mls/hr Documented by: [id number] Infusion: 02/17/20 02:41 Dose: 20 mls/hr Documented by: [id number] Admin: 02/16/20 22:09 Dose: 20 mls/hr Documented by: [id number] Infusion: 02/16/20 22:09 Dose: 20 mls/hr Documented by: [id number] Admin: 02/16/20 17:51 Dose: 20 mls/hr Documented by: [id number] Infusion: 02/16/20 17:51 Dose: 20 mls/hr Documented by: [id number] Admin: 02/16/20 17:29 Dose: 20 mls/hr Documented by: [id number] Admin: 02/16/20 15:20 Dose: Not Given Documented by: [id number] Fentanyl Citrate (Fentanyl Drip) 1,250 mcg in 250 mls @ 5 mls/hr IV .Q24H [facility]; Protocol Stop: 03/01/20 17:44 Last Titration: 02/16/20 23:13 Dose: 25 mcg/hr, 5 mls/hr Documented by: [id number] Cosigned by: [id number] Titration: 02/16/20 18:57 Dose: 25 mcg/hr, 5 mls/hr Documented by: [id number] Cosigned by: [id number] Admin: 02/16/20 17:46 Dose: 25 mcg/hr, 5 mls/hr Documented by: [id number] Cosigned by: [id number] Propofol (Diprivan) 1,000 mg in 100 mls @ 0 mls/hr IV .Q0M [facility]; Protocol Stop: 02/19/20 17:44 Last Titration: 02/17/20 01:00 Dose: 0 mcg/kg/min, 0 mls/hr Documented by: [id number] Titration: 02/17/20 00:15 Dose: 20.11 mcg/kg/min, 7.6 mls/hr Documented by: [id number] Titration: 02/16/20 23:13 Dose: 25 mcg/kg/min, 9.5 mls/hr Documented by: [id number] Cosigned by: [id number] Titration: 02/16/20 22:00 Dose: 25 mcg/kg/min, 9.5 mls/hr Documented by: [id number] Admin: 02/16/20 20:32 Dose: 30 mcg/kg/min, 11.3 mls/hr Documented by: [id number] Cosigned by: [id number] Titration: 02/16/20 20:32 Dose: 30 mcg/kg/min, 11.3 mls/hr Documented by: [id number] Cosigned by: [id number] Titration: 02/16/20 18:57 Dose: 30 mcg/kg/min, 11.3 mls/hr Documented by: [id number] Cosigned by: [id number] Admin: 02/16/20 17:50 Dose: 10 mcg/kg/min, 3.8 mls/hr Documented by: [id number] Cosigned by: [id number] Piperacillin Sod/Tazobactam (Sod 4.5 gm/ Dextrose) 120 mls @ 30 mls/hr IV Q8H [facility]; Protocol Stop: 02/26/20 17:59 Last Admin: 02/17/20 02:26 Dose: 30 mls/hr Documented by: [id number] Infusion: 02/16/20 22:40 Dose: 0 mls/hr Documented by: [id number] Admin: 02/16/20 18:40 Dose: 30 mls/hr Documented by: [id number] Norepinephrine Bitartrate 8 mg (/ Dextrose) 508 mls @ 26.403 mls/hr IV .[id number] [facility]; Protocol Stop: 03/17/20 21:14 Last Titration: 02/16/20 23:13 Dose: 0.11 mcg/kg/min, 26.4 mls/hr Documented by: [id number] Cosigned by: [id number] Titration: 02/16/20 22:25 Dose: 0.11 mcg/kg/min, 26.4 mls/hr Documented by: [id number] Titration: 02/16/20 22:12 Dose: 0.09 mcg/kg/min, 21.6 mls/hr Documented by: [id number] Titration: 02/16/20 21:51 Dose: 0.07 mcg/kg/min, 16.8 mls/hr Documented by: [id number] Admin: 02/16/20 21:29 Dose: 0.05 mcg/kg/min, 12 mls/hr Documented by: [id number] Cosigned by: [id number] Parenteral Electrolytes (Normosol-R) 1,000 mls @ 80 mls/hr IV .[id number] [facility] Stop: 03/18/20 01:59 Last Infusion: 02/17/20 04:00 Dose: 0 mls/hr Documented by: [id number] Admin: 02/17/20 02:22 Dose: 80 mls/hr Documented by: [id number] Vasopressin 20 units/ Sodium (Chloride) 101 mls @ 12.12 mls/hr IV .Q8H20M [facility] Stop: 03/18/20 01:59 Last Admin: 02/17/20 02:26 Dose: 0.04 unit/min, 12.1 mls/hr Documented by: [id number] Cosigned by: [id number] Discontinued Medications Etomidate (Amidate) 19 mg IV NOW ONE Stop: 02/16/20 13:16 Last Admin: 02/16/20 13:00 Dose: 19 mg Documented by: [id number] Fentanyl Citrate (Fentanyl Citrate) 50 mcg IV NOW STA Stop: 02/16/20 12:38 Last Admin: 02/16/20 12:45 Dose: 50 mcg Documented by: [id number] Sodium Chloride (Nss 1000ml) 1,000 mls @ 999 mls/hr IV .Q1H1M ONE Stop: 02/16/20 13:37 Last Infusion: 02/16/20 13:30 Dose: 0 mls/hr Documented by: [id number] Admin: 02/16/20 12:30 Dose: 999 mls/hr Documented by: [id number] Piperacillin Sod/Tazobactam Sod (Zosyn) 4.5 gm in 120 mls @ 240 mls/hr IV NOW ONE Stop: 02/16/20 13:06 Last Infusion: 02/16/20 14:00 Dose: 0 mls/hr Documented by: [id number] Admin: 02/16/20 13:30 Dose: 240 mls/hr Documented by: [id number] Sodium Chloride (Nss 1000ml) 1,000 mls @ 999 mls/hr IV .Q1H1M ONE Stop: 02/16/20 14:07 Last Infusion: 02/16/20 15:00 Dose: 0 mls/hr Documented by: [id number] Admin: 02/16/20 14:00 Dose: 999 mls/hr Documented by: [id number] Propofol (Diprivan) 1,000 mg in 100 mls @ 10.002 mls/hr IV .Q10H EARLENE; Protocol Stop: 02/19/20 13:14 Last Titration: 02/16/20 14:10 Dose: 26.46 mcg/kg/min, 10 mls/hr Documented by: [id number] Admin: 02/16/20 13:40 Dose: 20 mcg/kg/min, 7.6 mls/hr Documented by: [id number] Cosigned by: [id number] Pantoprazole Sodium 80 mg/ (Dextrose) 120 mls @ 400 mls/hr IV NOW ONE Stop: 02/16/20 13:47 Last Infusion: 02/16/20 14:20 Dose: 0 mls/hr Documented by: [id number] Admin: 02/16/20 14:00 Dose: 400 mls/hr Documented by: [id number] Albumin Human (Albumin 25%) 50 mls @ 50 mls/hr IV ONE ONE Stop: 02/16/20 21:36 Last Infusion: 02/16/20 21:55 Dose: 0 mls/hr Documented by: [id number] Admin: 02/16/20 20:55 Dose: 50 mls/hr Documented by: [id number] Parenteral Electrolytes (Normosol-R) 500 mls @ 999 mls/hr IV .Q31M ONE Stop: 02/16/20 21:07 Last Infusion: 02/16/20 21:30 Dose: 0 mls/hr Documented by: [id number] Admin: 02/16/20 20:59 Dose: 999 mls/hr Documented by: [id number] Albumin Human (Albumin 25%) 50 mls @ 50 mls/hr IV ONE ONE Stop: 02/16/20 21:57 Last Infusion: 02/16/20 22:13 Dose: 0 mls/hr Documented by: [id number] Admin: 02/16/20 21:13 Dose: 50 mls/hr Documented by: [id number] Acetaminophen (Ofirmev) 65 mls @ 200 mls/hr IV NOW ONE; Protocol Stop: 02/16/20 23:04 Last Infusion: 02/17/20 00:10 Dose: 0 mls/hr Documented by: [id number] Admin: 02/16/20 23:48 Dose: 200 mls/hr Documented by: [id number] Parenteral Electrolytes (Normosol-R) 500 mls @ 999 mls/hr IV .Q31M ONE Stop: 02/17/20 00:43 Last Infusion: 02/17/20 00:46 Dose: 0 mls/hr Documented by: [id number] Admin: 02/17/20 00:15 Dose: 999 mls/hr Documented by: [id number] Metoprolol Tartrate (Lopressor) 2.5 mg IV NOW STA Stop: 02/16/20 14:18 Last Admin: 02/16/20 14:00 Dose: 2.5 mg Documented by: [id number] Metoprolol Tartrate (Lopressor) 2.5 mg IV NOW STA Stop: 02/16/20 15:33 Last Admin: 02/16/20 14:20 Dose: 2.5 mg Documented by: [id number] Miscellaneous () Confirm Administered Dose 1 ea .ROUTE .STK-MED ONE Stop: 02/16/20 12:55 Last Admin: 02/16/20 15:16 Dose: Not Given Documented by: [id number] Miscellaneous () Confirm Administered Dose 1 ea .ROUTE .STK-MED ONE Stop: 02/16/20 14:29 Last Admin: 02/16/20 15:20 Dose: Not Given Documented by: [id number] Octreotide Acetate (Sandostatin Bolus From Bag) 50 mcg IV NOW STA Stop: 02/16/20 13:37 Last Admin: 02/16/20 15:19 Dose: Not Given Documented by: [id number] Ondansetron HCl (Zofran) 4 mg IV NOW STA Stop: 02/16/20 11:44 Last Admin: 02/16/20 12:30 Dose: 4 mg Documented by: [id number] Propofol (Diprivan) Confirm Administered Dose 1,000 mg IV .STK-MED ONE Stop: 02/16/20 13:06 Last Admin: 02/16/20 15:16 Dose: Not Given Documented by: [id number] Propofol (Diprivan Bolus From Bag) 60 mg IV NOW STA Stop: 02/16/20 13:38 Last Admin: 02/16/20 13:40 Dose: 60 mg Documented by: [id number] Cosigned by: [id number] Succinylcholine Chloride (Quelicin) 95 mg IV NOW ONE Stop: 02/16/20 13:16 Last Admin: 02/16/20 13:01 Dose: 95 mg Documented by: [id number] Blood Pressure Blood Pressure Findings: Normal blood pressure Discharge Plan Visit Data *Final* Discharge Date/Time: 02/16/20 15:44 Chief Complaint: Altered Mental Status ED Provider: Theo Pepper Discharge Problem: Acute hepatic encephalopathy, Incarcerated ventral hernia, SBO (small bowel obstruction), Acute respiratory distress, Acute upper GI bleed Patient Disposition: Admitted As Inpatient Condition: Serious Discharge Instructions Interventions: ED Discharge Assessment Last Done: 02/16/20 15:44
[2020-02-16] MEDS ORDERED: SODIUM CHLORIDE 0.9% 1000ML 1,000 ML IV ONE ×2 (12:37→13:07)
[2020-02-16] MEDS ORDERED: fentaNYL citrate 100 MCG/2 ML VIAL IV STA (12:37)
[2020-02-16] MEDS ORDERED: PIPERACILL/TAZOBAC CONSULT ACTIVE PRN (12:37)
[2020-02-16] MEDS ORDERED: PIPERACILLIN/TAZOBACTAM 4.5 GM/120 ML BAG IV ONE (12:37)
[2020-02-16 12:38] LABS: Basophils # (auto) 0.02 K/uL (0-0.2); Basophils % (auto) 0.1 %; Echinocytes 2+; Eosinophils # (auto) 0.01 K/uL (0-0.5); Eosinophils % (auto) 0.1 %; Immature Granulocytes # (auto) 0.03 K/uL (0.00-0.02); Immature Granulocytes % (auto) 0.2 %; Lymphocytes # (auto) 0.91 K/uL (1.2-3.4); Lymphocytes % (auto) 6.3 %; Monocytes # (auto) 0.64 K/uL (0.11-0.59); Monocytes % (auto) 4.4 %; Neutrophils # (auto) 12.78 K/uL (1.4-6.5); Neutrophils % (auto) 88.9 %
[2020-02-16 12:44] LABS: Albumin Globulin Ratio 0.9 (0.9-2); Alkaline Phosphatase 78 U/L (45-117); Bilirubin,Total 1.8 mg/dl (0.2-1); Creatine Kinase 116 U/L (39-308); Globulin 3.9 gm/dl (2.5-4.0); Total Protein 7.4 gm/dl (6.4-8.2); Troponin I < 0.015 ng/ml (0-0.045)
[2020-02-16] MEDS ORDERED: RAPID SEQUENCE INDUCTION BAG ONE ×2 (12:54→14:28)
--- NOTE | 2020-02-16 12:56 | CT Scan Report ---
CT abd pelvis wo con CLINICAL HISTORY: 80 years-old Male presenting with vomiting. TECHNIQUE: Multidetector CT of the abdomen and pelvis was performed without the use of intravenous co ntrast. IV contrast: None. One or more dose lowering techniques were used consistent with the princip les of ALARA (as low as reasonably achievable), including automatic exposure control, mA or kV adjust ment to individual patient size, and/or use of iterative reconstruction. COMPARISON: 11/17/2019. CT DOSE (mGy.cm): The estimated cumulative dose is 501.99 mGy.cm. FINDINGS: [employer] topogram: Cardiomegaly. TIPS also noted. Positioning of the arms over the upper abdomen mildly degrades image quality limiting diagnostic sens itivity. Lung bases: Normal heart size. Coronary artery and aortic valve calcification. No pericardial or pleu ral effusion. No focal infiltrate or nodule at the lung bases. Liver: The liver is atrophic compatible with cirrhosis. A transjugular intrahepatic portosystemic anthony nt is in place. Normal density of the liver. Biliary: Pneumobilia may be present centrally in both lobes. No gross biliary ductal dilatation allow ing for noncontrast technique. Gallbladder surgically absent. Pancreas: Mild parenchymal atrophy. Spleen: Normal noncontrast appearance. Adrenal glands: Normal noncontrast appearance. Kidneys and ureters: Few cysts are noted. No nephrolithiasis or hydronephrosis. Ureters nondistended. Bladder: Circumferential bladder wall thickening. Pelvic organs: Normal noncontrast appearance. Bowel: Normal appendix. Mid ileum is dilated over 4 cm and fluid-filled with a suspected focal transi tion point in the midline ventral abdomen, where there may be a short segment herniated loop of small bowel. No such herniation was present on the prior exam. Distal ileum is decompressed. Evaluation si gnificantly limited by lack of intravenous and oral contrast. Peritoneal cavity: Decreased volume of ascites, which is now small to moderate. Ascites also containe d within the multilocular ventral hernia. No pneumatosis or free intraperitoneal gas. Lymph nodes: No gross lymphadenopathy allowing for noncontrast technique. Vasculature: Atherosclerosis of the normal caliber abdominal aorta. Abdominal wall: Ventral hernia in the periumbilical region is again multilocular in appearance and co ntains ascites. A short segment of herniated segment of small bowel is also suspected within the yeny ia sac, which has a relatively narrow neck. The hernia neck is not well delineated but measures appro ximately 3 cm in comparison to the sac diameter of 13 cm. Severe gynecomastia also noted bilaterally. Musculoskeletal: Degenerative changes of the spine. IMPRESSION: 1. Evaluation degraded by lack of intravenous and oral contrast as well as positioning of the arms o jyoti the upper abdomen. Allowing for this, findings highly concerning for a high-grade partial or comp lete small bowel obstruction. This may be due to interval development of a herniated short segment of small bowel within the ventral hernia. Surgical consultation is recommended. 2. 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 3. Decreased volume ascites. No current evidence of portal hypertension. 4. Chronic bladder outlet obstruction may be present. The report will be called/faxed according to standard departmental protocol. ACT 112: Negative or not required by law. Electronically signed by: Naresh Bourne M.D. 02/16/2020 12:55 PM
[2020-02-16 13:05] LABS: Appearance Urine Clear (Clear); Bacteria Urine Automated Negative (Negative); Bilirubin Urine Negative (Negative); Blood Urine Negative (Negative); Color Urine Dark Yellow; Epithelial Cell Urine Auto 0-5 /lpf (0-5); Glucose Urine UA Negative (Negative); Ketones Urine Trace (Negative); Leukocyte Esterase Urine Negative (Negative); Nitrite Urine Negative (Negative); Protein Urine Trace (Negative); Specific Gravity Urine 1.027 (1.000-1.030); Urobilinogen Urine Negative (Negative); WBC Urine Automated 0 /hpf (0-5)
[2020-02-16] MEDS ORDERED: PROPOFOL IV EMULSION 10 MG/ML 100 ML VIAL IV ONE (13:05)
--- NOTE | 2020-02-16 13:10 | Surgery Consultation ---
Date of Consultation February 16, 2020 Assessment & Plan (1) Incarcerated umbilical hernia: This is a 80y M with a PMH significant for cirrhosis, hepatic encephalopathy, s/p TIPS 2019, paroxysmal afib, CKD who presents to the [facility] ED via ambulance on 02/16/20 with vomiting. Workup in the ED included a CT a/p which revealed findings concerning for high grade small bowel obstruction likely related to small bowel within ventral hernia. This study was limited by lack of contrast, however concerning for incarcerated hernia. In the ED hernia was attempted to be reduced at the bedside. Thereafter patient started vomiting coffee ground emesis. He was subsequently taken to be intubated and an NGT placed. Patient does have significant medical issues including, but not limited to cirrhosis s/p TIPS last year and hepatic encephalopathy with an ammonia >90, however due to concern for incarceration we would recommend patient go to the OR for an umbilical hernia repair. Dr. Shafer will be by to obtain surgical consent. As above. severely ill 80 year old with multiple comorbidities with an acute incarcerated hernia. +high grade SBO on CT scan. +emesis requiring intubation. +induration/skin color changes at the hernia site. will require emergent repair to prevent infarction if it hasn't infarcted already. discussed options with pt's daughter and risks ( bleeding/infection/leaks/injury to organs such as bowel, dvt/pe/mi/cva/ etc...questions answered. will proceed to OR emergent to reduce and repair his ventral hernia/SBO. will need to remain intubated and go to ICU post op. consent obtained via telephone with daughter. History of Present Illness History of Present Illness This is a 80y M with a PMH significant for cirrhosis, hepatic encephalopathy, s/p TIPS 2019, paroxysmal afib, CKD who presents to the [facility] ED via ambulance on 02/16/20 with vomiting. Majority of history obtained by patient's and daughter over the phone due to patient's mental status. They report patient started vomiting yesterday evening in copious amounts. This morning he continued to vomit and noticed that he was not himself mentally and "wouldn't move." She was concerned and called her daughter, which prompted he be evaluated in the ED. Patient has a known umbilical hernia that has been present for at least 2 years per daughter. She said he intermittently complains of pain, but has not been a candidate for elective surgery. reports he was complaining of some pain associated with the hernia since this past weekend. In the ED patient's labs notable for a WBC of 14.3, Hb.9, ammonia: 90.5, INR: 1.2, Cr: 1.64. A CT a/p was performed that revealed findings highly concerning for a high-grade partial or complete small bowel obstruction, which may be due to interval development of a herniated short segment of small bowel within the ventral hernia. Surgery was consulted for evaluation. Allergies Allergy/AdvReac Type Severity Reaction Status Date / Time No Known Allergies Allergy Verified 02/16/20 13:03 Home Medications Home Medications Medication Instructions Recorded Confirmed Type Centrum Silver 1 tab PO QAM 12/21/18 02/16/20 History tamsulosin [Flomax] 0.4 mg PO QAM 12/21/18 02/16/20 History loratadine 10 mg PO DAILY PRN 01/07/19 02/16/20 History polyethylene glycol 3350 [Miralax] 17 g PO DAILY 01/27/19 02/16/20 History artificial tears(hypromellose) 0.3 1 drops OP QID PRN 02/17/19 02/16/20 History % eye gel cholecalciferol (vitamin D3) 50 2,000 units PO QAM tab 02/17/19 02/16/20 History mcg (2,000 unit) tablet sodium chloride 0.65 % nasal spray 2 sprays INTNAS QID PRN 02/17/19 02/16/20 History aerosol Xifaxan 550 mg PO BID 06/12/19 02/16/20 History lactulose 45 ml PO TID 08/06/19 02/16/20 History Restasis 1 drp OPHTHALMIC (EYE) Q12H 09/22/19 02/16/20 History atorvastatin [Lipitor] 10 mg PO HS 09/22/19 02/16/20 History diclofenac sodium 1 % TOPICAL BID PRN 09/22/19 02/16/20 History lancets 09/22/19 12/23/19 History omeprazole 20 mg PO DAILY 09/22/19 02/16/20 History ipratropium bromide 2 spray INTRANASAL QID PRN 10/02/19 02/16/20 History azelastine 2 spray INTRANASAL BID 11/17/19 02/16/20 History fluoride (sodium) [PreviDent 5000 1 applic DENTAL TID 11/17/19 02/16/20 History Plus] pilocarpine HCl 5 mg tablet 5 mg PO TID #90 tab 12/23/19 02/16/20 Rx ciprofloxacin HCl 500 mg PO DAILY 01/11/20 02/16/20 History fluoride (sodium) [DentaGel] 1 applic DENTAL DAILY 02/16/20 02/16/20 History furosemide [Lasix] 40 mg PO DAILY 02/16/20 02/16/20 History ondansetron 4 mg PO Q8 PRN 02/16/20 02/16/20 History spironolactone [Aldactone] 100 mg PO QAM 02/16/20 02/16/20 History Patient History Medical History Anemia Ascites (Chronic) 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 Elevated LFTs suspected to be from DILI vs AIH. LFTs normalized now so immunosuppression use was deferred. 4L fluid drained 12/15. Abdomen noticeably distended at PAT appt on 12/31/18. BPH (benign prostatic hyperplasia) (Chronic) Cirrhosis (Chronic) Depression (Chronic) Diabetes mellitus, type II (Chronic) PER , METFORMIN RECENTLY D/C. GERD (gastroesophageal reflux disease) (Chronic) History of abdominal paracentesis (Resolved) 06/11/19, 02/08/19, 11/2018 HLD (hyperlipidemia) (Chronic) HTN (hypertension) (Chronic) No current meds Paroxysmal A-fib (Chronic) FOLLOWS W/ [facility] Poor historian PVCs (premature ventricular contractions) (Chronic) Sleep apnea (Chronic) NO DEVICE USED Spontaneous bacterial peritonitis (Resolved) Jun 2018. Pt was admitted for a fib RVR and ascites, fluid drawn from abdomen showed SBP. Treated with ABX and discharged. Following now with [facility] (Tyler/Lizzette Mitchell) and Dr. Monreal (Hepatology). Umbilical hernia Surgical History History of adenoidectomy (Chronic) 01/11/19 History of cataract surgery (Chronic) RT/LEFT History of colonoscopy (Chronic) 01/30/16 History of ERCP (Chronic) 05/12/18 - stent removed History of esophagogastroduodenoscopy (EGD) (Chronic) 11/07/2010, 06/23/18 - with endoscopic US History of eye surgery (Chronic) 2008 - TEAR DUCT OPENED UP History of hernia repair (Chronic) 04/02/18 History of intraocular lens implant (Chronic) 2008 - Bilateral History of laryngoscopy (Chronic) 01/11/19 - with biopsies + right modified radical cervical lymphadenectomy History of liver biopsy (Chronic) 05/2018 History of tonsillectomy (Chronic) 01/11/19 History of tooth extraction (Chronic) 01/11/19 S/P cholecystectomy (Chronic) 04/02/2018. Yan 2, grade 1 view. 8.0 ETT. 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 Sister , Passed age 6 months of pneumonia No problems noted. Brother , Passed in late 50's of [place] No problems noted. Sister , Passed in 60's of diabetic complications No problems noted. Sister No problems noted. Daughter Breast cancer, Onset Age: 40 Stage III - Currently doing well Brother No problems noted. Brother No problems noted. 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 Feels Safe at Home: Yes Smoking Status: Unknown if ever smoked Hx Alcohol Use: No Hx Substance Use: No Childhood Exposure to Second-Hand Smoke: Yes caffeine: Yes (3 cups of coffee/week with tea inbetween ) during the past year weight has: decreased > 10 lbs Dental Care, Regularly: No Review of Systems Review of Systems: Unobtainable due to cognitive status Physical Exam Constitutional: + ill appearing Gastrointestinal (Abdomen): Inspection/Auscultation: + visible herniation (umbilical herniation with some mild surrounding erythema) Percussion/Palpation: + abdomen tender (pt appears to be tender when palpating umbilical hernia) and abdomen soft Results & Data Vital Signs (Past 12 Hours) Vital Signs Temp Pulse Resp BP Pulse Ox 02/16/20 11:48 117 H 96 02/16/20 11:43 37 C 120 H 25 H 112/[address] abd pelvis wo con CLINICAL HISTORY: 80 years-old Male presenting with vomiting. TECHNIQUE: Multidetector CT of the abdomen and pelvis was performed without the use of intravenous contrast. IV contrast: None. One or more dose lowering techniques were used consistent with the principles of ALARA (as low as reasonably achievable), including automatic exposure control, mA or kV adjustment to individual patient size, and/or use of iterative reconstruction. COMPARISON: 11/17/2019. CT DOSE (mGy.cm): The estimated cumulative dose is 501.99 mGy.cm. FINDINGS: [employer] topogram: Cardiomegaly. TIPS also noted. Positioning of the arms over the upper abdomen mildly degrades image quality limiting diagnostic sensitivity. Lung bases: Normal heart size. Coronary artery and aortic valve calcification. No pericardial or pleural effusion. No focal infiltrate or nodule at the lung bases. Liver: The liver is atrophic compatible with cirrhosis. A transjugular intrahepatic portosystemic shunt is in place. Normal density of the liver. Biliary: Pneumobilia may be present centrally in both lobes. No gross biliary ductal dilatation allowing for noncontrast technique. Gallbladder surgically absent. Pancreas: Mild parenchymal atrophy. Spleen: Normal noncontrast appearance. Adrenal glands: Normal noncontrast appearance. Kidneys and ureters: Few cysts are noted. No nephrolithiasis or hydronephrosis. Ureters nondistended. Bladder: Circumferential bladder wall thickening. Pelvic organs: Normal noncontrast appearance. Bowel: Normal appendix. Mid ileum is dilated over 4 cm and fluid-filled with a suspected focal transition point in the midline ventral abdomen, where there may be a short segment herniated loop of small bowel. No such herniation was present on the prior exam. Distal ileum is decompressed. Evaluation significantly limited by lack of intravenous and oral contrast. Peritoneal cavity: Decreased volume of ascites, which is now small to moderate. Ascites also contained within the multilocular ventral hernia. No pneumatosis or free intraperitoneal gas. Lymph nodes: No gross lymphadenopathy allowing for noncontrast technique. Vasculature: Atherosclerosis of the normal caliber abdominal aorta. Abdominal wall: Ventral hernia in the periumbilical region is again multilocular in appearance and contains ascites. A short segment of herniated segment of small bowel is also suspected within the hernia sac, which has a relatively narrow neck. The hernia neck is not well delineated but measures approximately 3 cm in comparison to the sac diameter of 13 cm. Severe gynecomastia also noted bilaterally. Musculoskeletal: Degenerative changes of the spine. IMPRESSION: 1. Evaluation degraded by lack of intravenous and oral contrast as well as pos itioning of the arms over the upper abdomen. Allowing for this, findings highly concerning for a high-grade partial or complete small bowel obstruction. This may be due to interval development of a herniated short segment of small bowel within the ventral hernia. Surgical consultation is recommended. 2. 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 3. Decreased volume ascites. No current evidence of portal hypertension. 4. Chronic bladder outlet obstruction may be present. The report will be called/faxed according to standard departmental protocol. ACT 112: Negative or not required by law. Electronically signed by: Naresh Bourne M.D. 02/16/2020 12:55 PM PG Care Time/CCT Total # of Minutes Spent Total Time Spent with Patient: Total time spent is greater than 50% in coordination of care (as documented) at patient's floor/unit and/or counseling patient: Coding Level of Care Code 43427 Initial Inpt Care Lvl 1 Diagnoses Incarcerated umbilical hernia K42.0
[2020-02-16] MEDS ORDERED: PROPOFOL BOLUS FROM BAG IV PRN ×2 (13:12→17:31)
[2020-02-16] MEDS ORDERED: STAT IV Infusion **Titration per Protocol STA ×3 (13:12→21:08)
[2020-02-16] MEDS ORDERED: SUCCINYLCHOLINE CHLORIDE 20 MG/ML 10 ML VIAL IV ONE ×2 (13:12→13:15)
[2020-02-16] MEDS ORDERED: ETOMIDATE 2 MG/ML 20 ML VIAL IV ONE ×2 (13:12→13:15)
[2020-02-16 13:14] LABS: Mucus Urine Present (None Prsent)
[2020-02-16 13:15] LABS: RBC Urine Automated 0-4 /hpf (0-4)
[2020-02-16] MEDS ORDERED: propofoL 1,000 MG/100 ML VIAL IV SCH (13:15)
[2020-02-16] MEDS ORDERED: fentaNYL citrate 100 MCG/2 ML VIAL ONE ×2 (13:24→15:49)
[2020-02-16] MEDS ORDERED: ROCURONIUM BROMIDE 10 MG/ML 5 ML VIAL ONE ×5 (13:24→16:19)
[2020-02-16] MEDS ORDERED: OCTREOTIDE ACETATE 50 MCG in SYRINGE 9.5 ML IV STA (13:27)
[2020-02-16] MEDS ORDERED: PANTOprazole 80 MG in DEXTROSE 5% 100 ML IV ONE (13:30)
[2020-02-16] MEDS ORDERED: PANTOPRAZOLE BOLUS/DRIP 1 EA IV STA (13:30)
[2020-02-16] MEDS ORDERED: OCTREOTIDE BOLUS FROM BAG IV STA (13:36)
--- NOTE | 2020-02-16 13:36 | XRay Report ---
XR chest 1V portable CLINICAL HISTORY: 80 years-old Male presenting with ETT. TECHNIQUE: Portable supine AP view of the chest was obtained. COMPARISON: 02/16/2020 at 11:54 AM. FINDINGS: Interval intubation with the endotracheal tube terminating approximately 4 cm from the graeth. Nasoga stric tube descends below the diaphragm with the terminus potentially looped and oriented in a retrog rade fashion at the level of the GE junction. This is incompletely visualized. Atherosclerosis of the aortic arch. Cardiac silhouette normal in size. No focal opacity. No large eff usion or pneumothorax. Degenerative changes of the thoracic spine. Upper abdomen normal. IMPRESSION: 1. Appropriately positioned endotracheal tube. 2. Nasogastric tube terminates may be looped and oriented retrograde at the level of the GE junction . Please see separately dictated abdominal radiograph. ACT 112: Negative or not required by law. Electronically signed by: Naresh Bourne M.D. 02/16/2020 1:35 PM
[2020-02-16] MEDS ORDERED: PROPOFOL BOLUS FROM BAG IV STA (13:37)
--- NOTE | 2020-02-16 13:38 | XRay Report ---
XR KUB/Abdomen 1 view CLINICAL HISTORY: 80 years-old Male presenting with OGT. TECHNIQUE: Single supine view of the abdomen was obtained. COMPARISON: CT from earlier today. FINDINGS: Orogastric tube/nasogastric tube descends below the diaphragm looped within the gastric lumen with th e terminus oriented in a retrograde fashion at the level of the GE junction, sidehole within the mikhail monet lumen. Cholecystectomy clips noted. TIPS in place. Endotracheal tube and several external leads n oted. Stacked appearance of gaseous distended small bowel with an apparent diameter of almost 5 cm though t his may be affected by magnification. No gross pneumoperitoneum. Added density of the abdomen correla ramiro with underlying ascites. Allowing for bowel gas and stool, no calcifications to suggest nephrolithiasis. Degenerative changes of the spine. Lung bases clear. IMPRESSION: 1. Orogastric tube looped within the stomach with terminus oriented retrograde at the level of the G E junction, sidehole within the gastric lumen. 2. Small bowel obstruction. 3. Ascites. ACT 112: Negative or not required by law. Electronically signed by: Naresh Bourne M.D. 02/16/2020 1:37 PM
--- NOTE | 2020-02-16 14:03 | Anesthesiology Consultation ---
Date of Service February 16, 2020 Assessment & Plan (1) Encounter for pre-operative examination: Chart Review Chart Review: Acceptable Risk for Surgery and Patient NOT seen in Pre Admission Testing Consults Requested none ASA [id number] Proposed Anesthesia Anesthesia Type: General Risk / Benefits Reviewed With: PT / POA / Parent / Guardian, Accepts Plan and Informed Consent Obtained Additional Notes Patient may or may not be having possible [place]. Cardiology in to evaluate patient to determine whether any cardiac optimization or intervention is even possible prior to emergent surgery for incarcerated hernia/bowel obstruction. History Surgery Operation Date: 02/16/20 12:30 Proposed Procedures p Open Umbilical Hernia Repair - Regulo Shafer, DO Height/Weight Height: 5 ft 8 in Weight: 63 kg Allergies Allergy/AdvReac Type Severity Reaction Status Date / Time No Known Allergies Allergy Verified 02/16/20 13:03 Medications Home Medications Medication Instructions Recorded Confirmed Last Taken Centrum Silver 1 tab PO QAM 12/21/18 02/16/20 11/17/19 tamsulosin [Flomax] 0.4 mg PO QAM 12/21/18 02/16/20 11/17/19 loratadine 10 mg PO DAILY PRN 01/07/19 02/16/20 08/11/19 polyethylene glycol 3350 [Miralax] 17 g PO DAILY 01/27/19 02/16/20 09/08/19 artificial tears(hypromellose) 0.3 1 drops OP QID PRN 02/17/19 02/16/20 09/15/19 % eye gel cholecalciferol (vitamin D3) 50 2,000 units PO QAM tab 02/17/19 02/16/20 11/17/19 mcg (2,000 unit) tablet sodium chloride 0.65 % nasal spray 2 sprays INTNAS QID PRN 02/17/19 02/16/20 10/02/19 aerosol Xifaxan 550 mg PO BID 06/12/19 02/16/20 11/17/19 08:00 lactulose 45 ml PO TID 08/06/19 02/16/20 11/17/19 Restasis 1 drp OPHTHALMIC (EYE) Q12H 09/22/19 02/16/20 11/17/19 atorvastatin [Lipitor] 10 mg PO HS 09/22/19 02/16/20 11/16/19 lancets 09/22/19 12/23/19 Unknown omeprazole 20 mg PO DAILY 09/22/19 02/16/20 11/17/19 ipratropium bromide 2 spray INTRANASAL QID PRN 10/02/19 02/16/20 10/02/19 azelastine 2 spray INTRANASAL BID 11/17/19 02/16/20 11/17/19 08:00 fluoride (sodium) [PreviDent 5000 1 applic DENTAL TID 11/17/19 02/16/20 Unknown Plus] pilocarpine HCl 5 mg tablet 5 mg PO TID #90 tab 12/23/19 02/16/20 Unknown ciprofloxacin HCl 500 mg PO DAILY 01/11/20 02/16/20 Unknown fluoride (sodium) [DentaGel] 1 applic DENTAL DAILY 02/16/20 02/16/20 Unknown furosemide [Lasix] 40 mg PO DAILY 02/16/20 02/16/20 Unknown ondansetron 4 mg PO Q8 PRN 02/16/20 02/16/20 Unknown spironolactone [Aldactone] 100 mg PO QAM 02/16/20 02/16/20 Unknown Past Medical History Medical History Anemia Ascites (Chronic) 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 Elevated LFTs suspected to be from DILI vs AIH. LFTs normalized now so immunosuppression use was deferred. 4L fluid drained 12/15. Abdomen noticeably distended at PAT appt on 12/31/18. BPH (benign prostatic hyperplasia) (Chronic) Cirrhosis (Chronic) Depression (Chronic) Diabetes mellitus, type II (Chronic) PER , METFORMIN RECENTLY D/C. GERD (gastroesophageal reflux disease) (Chronic) History of abdominal paracentesis (Resolved) 06/11/19, 02/08/19, 11/2018 HLD (hyperlipidemia) (Chronic) HTN (hypertension) (Chronic) No current meds Paroxysmal A-fib (Chronic) FOLLOWS W/ [facility] Poor historian PVCs (premature ventricular contractions) (Chronic) Sleep apnea (Chronic) NO DEVICE USED Spontaneous bacterial peritonitis (Resolved) Jun 2018. Pt was admitted for a fib RVR and ascites, fluid drawn from abdomen showed SBP. Treated with ABX and discharged. Following now with [facility] (Tyler/Lizzette Mitchell) and Dr. Monreal (Hepatology). Umbilical hernia Exercise / Class Metabolic Activity III < 4 Walking/Shop/Light housework Past Family History Family History Mother , Passed age 49 from Leukemia No problems noted. Sister , Passed age 6 months of pneumonia No problems noted. Brother , Passed in late 50's of [place] No problems noted. Sister , Passed in 60's of diabetic complications No problems noted. Sister No problems noted. Daughter Breast cancer, Onset Age: 40 Stage III - Currently doing well Brother No problems noted. Brother No problems noted. Other Family history of diabetes mellitus Past Surgical History Surgical History History of adenoidectomy (Chronic) 01/11/19 History of cataract surgery (Chronic) RT/LEFT History of colonoscopy (Chronic) 01/30/16 History of ERCP (Chronic) 05/12/18 - stent removed History of esophagogastroduodenoscopy (EGD) (Chronic) 11/07/2010, 06/23/18 - with endoscopic US History of eye surgery (Chronic) 2008 - TEAR DUCT OPENED UP History of hernia repair (Chronic) 04/02/18 History of intraocular lens implant (Chronic) 2008 - Bilateral History of laryngoscopy (Chronic) 01/11/19 - with biopsies + right modified radical cervical lymphadenectomy History of liver biopsy (Chronic) 05/2018 History of tonsillectomy (Chronic) 01/11/19 History of tooth extraction (Chronic) 01/11/19 S/P cholecystectomy (Chronic) 04/02/2018. Yan 2, grade 1 view. 8.0 ETT. S/P TIPS (transjugular intrahepatic [place]osystemic [place]) ([place]) [place] [facility] [place] Anesthesia History No Hx of Anesthesia Complications and No Family Hx of Anesthesia Complications History of PONV No Hx of PONV Social History Smoking Status: Unknown if ever smoked tobacco type: smokeless tobacco Hx Alcohol Use: No Hx Substance Use: No substance use type: does not use Review of Systems Presented with altered mental status. Patient developed uncontrolled n/v in the ED - was emergently intubated. Currently intubated and sedated. Physical Exam Vital Signs Last Vital Signs Temp 37 C 02/16/20 11:43 Pulse 117 H 02/16/20 11:48 Resp 25 H 02/16/20 11:43 BP 112/88 02/16/20 11:43 Pulse Ox 96 02/16/20 11:48 Constitutional not obese ENMT Mouth: no TMJ abnormality Thyromental Distance: > or= 3.5 Finger Breadths Mallampati Class: Other (Intubated and sedated in ED) Neck normal visual inspection Respiratory + uses accessory muscles and + audible wheezes Auscultation: + rhonchi and + wheezes Cardiovascular Rate/Rhythm: regular rhythm; + abnormal rate (Tachycardic) Heart Sounds: no murmur Neurologic + does not move all extremities Psychiatric Orientation: + not alert and + not oriented x 3 Testing Laboratory Results 02/16/20 11:58 02/16/20 11:58 PT 12.4 Seconds (9.0-12.0) H 02/16/20 11:58 INR 1.2 (0.9-1.1) H 02/16/20 11:58 APTT 23.8 Seconds (21.0-31.0) 02/16/20 11:58 Urine Color Dark Yellow 02/16/20 12:45 Urine Appearance Clear (Clear) 02/16/20 12:45 Urine pH 5.0 (4.5-7.5) 02/16/20 12:45 Ur Specific [place] 1.027 (1.000-1.030) 02/16/20 12:45 Urine Protein Trace (Negative) H 02/16/20 12:45 Urine Glucose (UA) Negative (Negative) 02/16/20 12:45 Urine Ketones Trace (Negative) H 02/16/20 12:45 Urine Nitrite Negative (Negative) 02/16/20 12:45 Ur Leukocyte Esterase Negative (Negative) 02/16/20 12:45 Urine WBC (Auto) 0 /hpf (0-5) 02/16/20 12:45 Urine RBC (Auto) 0-4 /hpf (0-4) 02/16/20 12:45 U Hyaline Cast (Auto) 1-5 /lpf (0-5) 02/16/20 12:45 U Epithel Cells (Auto) 0-5 /lpf (0-5) 02/16/20 12:45 Urine Bacteria (Auto) Negative (Negative) 02/16/20 12:45 Blood Type O Positive 02/16/20 11:58 Antibody Screen NEGATIVE 02/16/20 11:58 Electrocardiogram Date: 02/16/20 Accelerated junctional rhythm (124), low voltage QRS, ST elevation, consider early repolarization, pericarditis, or injury
--- NOTE | 2020-02-16 14:14 | History & Physical Report ---
Date of Service February 16, 2020 Assessment & Plan (1) Incarcerated ventral hernia: (2) SBO (small bowel obstruction): Pt is 80 y/o M with PMH cirrhosis with ascites s/p TIPS procedure in 2019, paroxysmal atrial fibrillation off beta-clau secondary to bradycardia, CKD III, dyslipidemia, sleep apnea, DM II presented to ER for altered mental status and vomiting. Reported that pt c/o discomfort around his ventral hernia site couple days ago and having vomiting. Presented to ER was lethargic and not answering questions. Noted coffee-ground like emesis. Concern for airway compromise and patient was intubated in ER. CT abdomen/pelvis which was concerning for high-grade partial or complete small bowel obstruction, may be due to interval development of a herniated short segment of small bowel within the ventral hernia. Orogastric tube was placed General surgery was consulted and plan to take patient to the OR Pt intubated. To ICU after OR Further plan per environmental studies program director (3) Acute hepatic encephalopathy: Suspect AMS secondary to acute hepatic encephalopathy vs metabolic encephalopathy Ammonia: 90. CT Head: no acute changes (4) Abnormal electrocardiogram [ECG] [EKG]: Initial EKG in ER with artifact, sinus tachycardia with rate of 121, nonspecific ST changes. Initial troponin negative Repeat EKG at 13:37 with sinus tachycardia at 124, with artifact, lateral ST segment elevation. Cardiology, Dr Lau saw pt in ER. Lopressor 2.5mg x 2 given and paralytic and repeat EKG with sinus rhythm, no further ST elevation A limited bedside echo completed: No pericardial effusion was noted. Apical hypokinesis was noted with mild to moderate left ventricular systolic dysfunction. It was felt an acute ischemic process vs stress-induced cardiomyopathy a possibility and felt with no cardiac cath at this time secondary to acute upper GI bleed and felt pt to proceed to OR for treatment of incarcerated hernia. Recommend utilizing small doses of beta-clau to try to keep his heart rate less than 100 bpm. (5) Acute upper GI bleed: Noted coffee ground emesis in ER. H/H: 12.9/38. Baseline Hgb: ~10 Orogastric tube placed In ER given IVF Protonix bolus and drip and octreotide to be started Consider GI consult (6) Acute kidney injury superimposed on CKD: BUN: 19, Cr: 1.6. Recent baseline Cr~1.1, was up to 1.3 in 2019 Monitor renal functions (7) Cirrhosis: H/O Cirrhosis with ascites. S/P TIPS in 2019. Requires recurrent paracentesis. (8) Paroxysmal A-fib: Not on anticoagulation secondary to recurrent paracentesis. Not on beta- clau secondary to bradycardia, hypotension Disposition ICU Full Code as per discussion with pt's Nayeli Nelson Follows with Dr Das for routine care Pt was seen and care coordinated with Dr Ambriz. See addendum History of Present Illness Chief Complaint: Altered mental status, vomiting Primary Care Provider: Renard Das MD Pt is 80 y/o M with PMH cirrhosis with ascites s/p TIPS procedure in 2019, paroxysmal atrial fibrillation off beta-clau secondary to bradycardia, CKD III, dyslipidemia, sleep apnea, DM II presented to ER for altered mental status and vomiting. History obtained from ER staff and patient's secondary to patient currently being intubated. Spoke to patient's on phone he reports several days ago patient was complaining of discomfort around his ventral hernia site. States several days ago started with vomiting and patient's says does not think was vomiting that much. Was unsure of coloration of vomit or if any noted hematemesis or red blood. Reports patient has not eaten for the past couple of days. She reports pt is always "cold" but unaware of any fevers. Unsure of pt's bowel movement status. States earlier this morning patient started vomiting again and when she woke up she noticed patient was confused and was sleepy and not answering questions or talking. Patient's states she believes patient last took medications 2 days ago. reports patient had paracentesis 02/07/2020. Today EMS was called and patient was transported to ER. Upon ER arrival it is reported patient was lethargic and not answering questions but was noted to be looking around room and moving extremities. It was also noticed patient had coffee-ground like emesis. With patient's altered mental status and episodes of emesis concern for airway compromise and patient was intubated in ER. Patient had CT abdomen/pelvis which was concerning for high-grade partial or complete small bowel obstruction, may be due to interval development of a herniated short segment of small bowel within the ventral hernia. General surgery was consulted and plan to take patient to the OR. Allergies Allergy/AdvReac Type Severity Reaction Status Date / Time No Known Allergies Allergy Verified 02/16/20 13:03 Home Medications Home Medications Medication Instructions Recorded Confirmed Type Centrum Silver 1 tab PO QAM 12/21/18 02/16/20 History tamsulosin [Flomax] 0.4 mg PO QAM 12/21/18 02/16/20 History loratadine 10 mg PO DAILY PRN 01/07/19 02/16/20 History polyethylene glycol 3350 [Miralax] 17 g PO DAILY PRN 01/27/19 02/16/20 History artificial tears(hypromellose) 0.3 1 drops OP QID PRN 02/17/19 02/16/20 History % eye gel cholecalciferol (vitamin D3) 50 2,000 units PO QAM tab 02/17/19 02/16/20 History mcg (2,000 unit) tablet sodium chloride 0.65 % nasal spray 2 sprays INTNAS QID PRN 02/17/19 02/16/20 History aerosol Xifaxan 550 mg PO BID 06/12/19 02/16/20 History lactulose 45 ml PO TID 08/06/19 02/16/20 History Restasis 1 drp OPHTHALMIC (EYE) Q12H 09/22/19 02/16/20 History atorvastatin [Lipitor] 10 mg PO HS 09/22/19 02/16/20 History lancets 09/22/19 02/16/20 History omeprazole 20 mg PO DAILY 09/22/19 02/16/20 History ipratropium bromide 2 spray INTRANASAL QID PRN 10/02/19 02/16/20 History azelastine 2 spray INTRANASAL BID 11/17/19 02/16/20 History fluoride (sodium) [PreviDent 5000 1 applic DENTAL TID 11/17/19 02/16/20 History Plus] pilocarpine HCl 5 mg tablet 5 mg PO TID #90 tab 12/23/19 02/16/20 Rx ciprofloxacin HCl 500 mg PO DAILY 01/11/20 02/16/20 History fluoride (sodium) [DentaGel] 1 applic DENTAL DAILY 02/16/20 02/16/20 History furosemide [Lasix] 20 mg PO DAILY 02/16/20 02/16/20 History ondansetron 4 mg PO Q8 PRN 02/16/20 02/16/20 History spironolactone [Aldactone] 100 mg PO QAM 02/16/20 02/16/20 History Past Med/Surg History Medical History Anemia Ascites (Chronic) 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 Elevated LFTs suspected to be from DILI vs AIH. LFTs normalized now so immunosuppression use was deferred. 4L fluid drained 12/15. Abdomen noticeably distended at PAT appt on 12/31/18. BPH (benign prostatic hyperplasia) (Chronic) Cirrhosis (Chronic) Depression (Chronic) Diabetes mellitus, type II (Chronic) PER , [facility]FORMIN RECENTLY D/C. GERD (gastroesophageal reflux disease) (Chronic) History of abdominal paracentesis (Resolved) 06/11/19, 02/08/19, 11/2018 HLD (hyperlipidemia) (Chronic) HTN (hypertension) (Chronic) No current meds Paroxysmal A-fib (Chronic) FOLLOWS W/ [facility] Poor historian PVCs (premature ventricular contractions) (Chronic) Sleep apnea (Chronic) NO DEVICE USED Spontaneous bacterial peritonitis (Resolved) Jun 2018. Pt was admitted for a fib RVR and ascites, fluid drawn from abdomen showed SBP. Treated with ABX and discharged. Following now with [facility] (Tyler/Lizzette Mitchell) and Dr. Monreal (Hepatology). Umbilical hernia Surgical History History of adenoidectomy (Chronic) 01/11/19 History of cataract surgery (Chronic) RT/LEFT History of colonoscopy (Chronic) 01/30/16 History of ERCP (Chronic) 05/12/18 - stent removed History of esophagogastroduodenoscopy (EGD) (Chronic) 11/07/2010, 06/23/18 - with endoscopic US History of eye surgery (Chronic) 2008 - TEAR DUCT OPENED UP History of hernia repair (Chronic) 04/02/18 History of intraocular lens implant (Chronic) 2008 - Bilateral History of laryngoscopy (Chronic) 01/11/19 - with biopsies + right modified radical cervical lymphadenectomy History of liver biopsy (Chronic) 05/2018 History of tonsillectomy (Chronic) 01/11/19 History of tooth extraction (Chronic) 01/11/19 S/P cholecystectomy (Chronic) 04/02/2018. Yan 2, grade 1 view. 8.0 ETT. S/P TIPS ([place]jugular [place]atic [place]os[place]ic [place]) (Chronic[place] [facility] [place] History Mother , Passed age 49 from Leukemia No problems noted. Sister , Passed age 6 months of pneumonia No problems noted. Brother , Passed in late 50's of PA No problems noted. Sister , Passed in 60's of diabetic complications No problems noted. Sister No problems noted. Daughter Breast cancer, Onset Age: 40 Stage III - Currently doing well Brother No problems noted. Brother No problems noted. 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 Feels Safe at Home: Yes Smoking Status: Former smoker Tobacco Type: smokeless tobacco ; packs per day: 0.5 ; Second Hand Exposure: No ; Childhood Exposure to Second-Hand Smoke: Yes caffeine: Yes (3 cups of coffee/week with tea inbetween ) during the past year weight has: decreased > 10 lbs Dental Care, Regularly: No Review of Systems Review of Systems: Unobtainable due to endotracheal tube Physical Exam Physical Exam: General: ill appearing, WDWN Head: normocephalic, atraumatic Eyes: PERRL, conjunctiva non-injected, anicteric ENT: normal inspection external ears, nose, +OG tube and ET tube in place Neck: supple, trachea midline Lungs: intubated, +breath sounds bilaterally, +rhonchi, accessory muscle use CV: tachycardia 112, no murmur, no pretibial edema Abd: hypoactive BS, +ventral hernia with some skin discoloration Ext: no cyanosis, or erythema Neuro: Pt currently sedated and intubated Skin: warm, dry Results & Data Results & Data ([facility]) Vital Signs (Past 12 Hours) Vital Signs Temp Pulse Resp BP Pulse Ox 02/16/20 11:48 117 H 96 02/16/20 11:43 37 C 120 H 25 H 112/88 95 Laboratory Results Short CBC 02/16/20 02/16/20 02/16/20 Range/Units 11:58 11:58 11:58 WBC 14.39 H (4.8-10.8) K/uL Hgb 12.9 L (14.0-18.0) g/dL Hct 38.3 L (42-52) % Plt Count 202 (130-400) K/uL Creatinine 1.64 H (0.6-1.4) mg/dl Ammonia 90.5 H (11-32) umol/L TSH 7.550 H (0.300-4.500) uIu/ml BMP 02/16/20 11:58 Sodium 143 Potassium 4.4 Chloride 109 H Carbon Dioxide 21 BUN 19 H Creatinine 1.64 H Glucose 149 H Calcium 9.4 Cardiac Enzymes 02/16/20 Range/Units 11:58 Total Creatine Kinase 116 (39-308) U/L Troponin I < 0.015 (0-0.045) ng/ml Liver Function 02/16/20 Range/Units 11:58 Total Bilirubin 1.8 H (0.2-1) mg/dl AST 34 (15-37) U/L ALT 32 (12-78) U/L Alkaline Phosphatase 78 (45-117) U/L Albumin 3.5 (3.4-5.0) gm/dl Urine 02/16/20 Range/Units 12:45 Urine Color Dark Yellow Urine Appearance Clear (Clear) Urine pH 5.0 (4.5-7.5) Ur Specific [place] 1.027 (1.000-1.030) Urine Protein Trace H (Negative) Urine Glucose (UA) Negative (Negative) Diagnostic Findings CT HEAD: IMPRESSION: 1. No acute intracranial abnormality. CXR: IMPRESSION: 1. No acute cardiopulmonary disease. CT ABD/PELVIS: IMPRESSION: 1. Evaluation degraded by lack of intravenous and oral contrast as well as positioning of the arms over the upper abdomen. Allowing for this, findings highly concerning for a high-grade partial or complete small bowel obstruction. This may be due to interval development of a herniated short segment of small bowel within the ventral hernia. Surgical consultation is recommended. 2. 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 3. Decreased volume ascites. No current evidence of portal hypertension. 4. Chronic bladder outlet obstruction may be present. REPEAT CXR: IMPRESSION: 1. Appropriately positioned endotracheal tube. 2. Nasogastric tube terminates may be looped and oriented retrograde at the level of the GE junction. Please see separately dictated abdominal radiograph. KUB: IMPRESSION: 1. Orogastric tube looped within the stomach with terminus oriented retrograde at the level of the GE junction, sidehole within the gastric lumen. 2. Small bowel obstruction. 3. Ascites. ECG Rate (beats per minute): 121 Rhythm: sinus tachycardia Findings: + nonspecific-ST abn Additional Comments: 11:48am Code Status & VTE Plan VTE Prophylaxis Plan VTE Prophylaxis will be ordered: Yes Supervising Physician Co-Signing Physician Notes I have seen and examined the patient and have discussed the case with the provider above. I agree with the assessment and plan as stated. 80 yo cirrhotic man presented with acute incarceration of bowel and acute confusion. He was intubated prior to my exam and sedated with propofol. He has evidence of an UG IB possibly related to his infarcted bowel as symptoms have been present for several days. Surgery is prepping him for the OR as soon as possible. EGD in Jul 2019 was clear with no endoscopic evidence of varices at that time. Protonix bolus given in the ER and will start Protonix drip +/- octreotide per environmental studies program director who will be receiving him post-operatively. Appreciate Cardiology involvement who is suggesting supportive care with PRN Lopressor at this time and hemodynamic support. Formal echo will likely happen in the next 24 hours depending on how he does with this upcoming operation. Family has been kept up to date. Provider above also spoke with them. My physical exam findings are consistent with that above. Intubated and sedated patient with soft abdomen that is nondistended with a prominent ventral hernia centrally. Abdominal binder was in place. Cardiac auscultation revealed tachy rate, S1/2 heard without murmurs. Mild wheezing on the left lung base, clear on the right. Will cont to monitor progress closely. He is in guarded condition with elevated risk of perioperative mortality. Confusion may also have been related to hepatic encephalopathy as ammonia level is up. Has a h/o TIPS for recurrent ascites in the past, but still requiring paracenteses recently. On Lasix, spironolactone, and Xifaxan at home. DO Pb
[2020-02-16] MEDS ORDERED: METOPROLOL TARTRATE 1 MG/ML VIAL IV STA ×2 (14:17→15:32)
[2020-02-16] MEDS: OCTREOTIDE ACETATE 500 MCG in 0.9 % SODIUM CHLORIDE 100 ML IV SCH ×2 (15:19→17:28)
[2020-02-16] MEDS: PANTOprazole 40 MG in DEXTROSE 5% 100 ML IV SCH ×4 (15:20→22:09)
--- NOTE | 2020-02-16 15:20 | Cardiology Consultation ---
Date of Consultation February 16, 2020 Assessment & Plan (1) Incarcerated ventral hernia: (2) Acute hepatic encephalopathy: (3) Acute upper GI bleed: (4) Abnormal electrocardiogram [ECG] [EKG]: (5) Preoperative cardiovascular examination: The patient previously had an echocardiogram in May 2019 with findings of mild biatrial enlargement, normal LV wall motion, normal LVEF in the range of 55 to 60%. A limited bedside echocardiogram was performed in the emergency department. No pericardial effusion was noted. Apical hypokinesis was noted with mild to moderate left ventricular systolic dysfunction. Right ventricle appeared small and underfilled on the present study. I believe the patient's presenting symptoms were due to his incarcerated hernia, he is currently having ongoing vomiting, around his orogastric tube, with blood noted in the aspirate. I believe he has a intra-abdominal emergency, and requires emergent surgery for this life-threatening situation. Transient lateral ST segment elevation noted on EKG, EKG was limited by artifact, and the patient was tachycardic at that time. Although based on his echocardiogram, he could be having acute ischemic process, also a stress-induced cardiomyopathy is a possibility. His initial troponin was fortunately within normal limits. I think at this time it is most prudent to proceed with supportive care from a cardiac perspective, and to proceed with definitive treatment of his underlying condition which is the incarcerated hernia. Recommend utilizing small doses of beta-clau to try to keep his heart rate less than 100 bpm. I do not think he is a candidate for acute cardiac catheterization, his PCI would require antithrombotic therapy, and since he is already having an upper GI bleed, and requires emergent surgical intervention, this is not feasible. Agree with plan for post operative care in the intensive care unit. Patient of course is deemed to be at high risk for perioperative cardiac complication, but believe that the intra-abdominal surgery is a potentially life-threatening procedure, given his underlying chronic illness as well as his acute illness, is felt that his prognosis is very guarded. Case discussed with Dr Pepper, Dr Ambriz, and Dr Robert at the bedside. History of Present Illness Reason for Consultation: Abnormal EKG, preoperative cardiac assessment Requesting Physician: Dr Pepper History of Present Illness Mr Nelson was seen in emergent cardiac catheterization in ED bay A1 for preoperative cardiac assessment in the setting of abnormal EKG. He is a 80-year-old male with past medical history of hepatic cirrhosis with ascites and past TIPS procedure in 2019. He has an apparent history of paroxysm al atrial fibrillation and is not on a beta-clau due to bradycardia. He presented to the emergency department from home today with family complaints of change in mental status and vomiting. Shortly after arrival to the emergency department, he underwent endotracheal intubation due to severe vomiting, in order to protect his airway. He has had recent discomfort around his ventral hernia site. CT of the abdomen and pelvis revealed suggestion of a high-grade partial or complete small bowel obstruction as well as ascites. General surgery had seen the patient in consultation and emergent operative intervention was tentatively planned, however an EKG was performed at 1337 revealing sinus tachycardia at 124 bpm, with significant artifact noted in the baseline, and concern for lateral ST segment elevation. Upon my arrival, the patient was noted to be tremorous, on the ventilator, and sinus tachycardia in the 120s was noted, with a systolic blood pressure in the 120s, which was improved compared to his initial presentation. Metoprolol tartrate 2.5 mg x 2 doses was administered, as well paralytic medication and a repeat EKG performed on 02/16/2020 at 1435 was much improved with resolution of the artifact, sinus rhythm at 92 bpm was present, with very minimal J-point elevation noted in the lateral leads, the previously noted lateral ST elevation had resolved. Allergies Allergy/AdvReac Type Severity Reaction Status Date / Time No Known Allergies Allergy Verified 02/16/20 13:03 Home Medications Home Medications Medication Instructions Recorded Confirmed Type Centrum Silver 1 tab PO QAM 12/21/18 02/16/20 History tamsulosin [Flomax] 0.4 mg PO QAM 12/21/18 02/16/20 History loratadine 10 mg PO DAILY PRN 01/07/19 02/16/20 History polyethylene glycol 3350 [Miralax] 17 g PO DAILY PRN 01/27/19 02/16/20 History artificial tears(hypromellose) 0.3 1 drops OP QID PRN 02/17/19 02/16/20 History % eye gel cholecalciferol (vitamin D3) 50 2,000 units PO QAM tab 02/17/19 02/16/20 History mcg (2,000 unit) tablet sodium chloride 0.65 % nasal spray 2 sprays INTNAS QID PRN 02/17/19 02/16/20 History aerosol Xifaxan 550 mg PO BID 06/12/19 02/16/20 History lactulose 45 ml PO TID 08/06/19 02/16/20 History Restasis 1 drp OPHTHALMIC (EYE) Q12H 09/22/19 02/16/20 History atorvastatin [Lipitor] 10 mg PO HS 09/22/19 02/16/20 History lancets 09/22/19 02/16/20 History omeprazole 20 mg PO DAILY 09/22/19 02/16/20 History ipratropium bromide 2 spray INTRANASAL QID PRN 10/02/19 02/16/20 History azelastine 2 spray INTRANASAL BID 11/17/19 02/16/20 History fluoride (sodium) [PreviDent 5000 1 applic DENTAL TID 11/17/19 02/16/20 History Plus] pilocarpine HCl 5 mg tablet 5 mg PO TID #90 tab 12/23/19 02/16/20 Rx ciprofloxacin HCl 500 mg PO DAILY 01/11/20 02/16/20 History fluoride (sodium) [DentaGel] 1 applic DENTAL DAILY 02/16/20 02/16/20 History furosemide [Lasix] 20 mg PO DAILY 02/16/20 02/16/20 History ondansetron 4 mg PO Q8 PRN 02/16/20 02/16/20 History spironolactone [Aldactone] 100 mg PO QAM 02/16/20 02/16/20 History Patient History Medical History Anemia Ascites (Chronic) 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 Elevated LFTs suspected to be from DILI vs AIH. LFTs normalized now so immunosuppression use was deferred. 4L fluid drained 12/15. Abdomen noticeably distended at PAT appt on 12/31/18. BPH (benign prostatic hyperplasia) (Chronic) Cirrhosis (Chronic) Depression (Chronic) Diabetes mellitus, type II (Chronic) PER , METFORMIN RECENTLY D/C. GERD (gastroesophageal reflux disease) (Chronic) History of abdominal paracentesis (Resolved) 06/11/19, 02/08/19, 11/2018 HLD (hyperlipidemia) (Chronic) HTN (hypertension) (Chronic) No current meds Paroxysmal A-fib (Chronic) FOLLOWS W/ [facility] Poor historian PVCs (premature ventricular contractions) (Chronic) Sleep apnea (Chronic) NO DEVICE USED Spontaneous bacterial peritonitis (Resolved) Jun 2018. Pt was admitted for a fib RVR and ascites, fluid drawn from abdomen showed SBP. Treated with ABX and discharged. [facility] (Tyler/Lizzette Mitchell) and Dr. Monreal (Hepatology). Umbilical hernia Surgical History History of adenoidectomy (Chronic) 01/11/19 History of cataract surgery (Chronic) RT/LEFT History of colonoscopy (Chronic) 01/30/16 History of ERCP (Chronic) 05/12/18 - stent removed History of esophagogastroduodenoscopy (EGD) (Chronic) 11/07/2010, 06/23/18 - with endoscopic US History of eye surgery (Chronic) 2008 - TEAR DUCT OPENED UP History of hernia repair (Chronic) 04/02/18 History of intraocular lens implant (Chronic) 2008 - Bilateral History of laryngoscopy (Chronic) 01/11/19 - with biopsies + right modified radical cervical lymphadenectomy History of liver biopsy (Chronic) 05/2018 History of tonsillectomy (Chronic) 01/11/19 History of tooth extraction (Chronic) 01/11/19 S/P cholecystectomy (Chronic) 04/02/2018. Yan 2, grade 1 view. 8.0 ETT. 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 Sister , Passed age 6 months of pneumonia No problems noted. Brother , Passed in late 50's of [place] No problems noted. Sister , Passed in 60's of diabetic complications No problems noted. Sister No problems noted. Daughter Breast cancer, Onset Age: 40 Stage III - Currently doing well Brother No problems noted. Brother No problems noted. Other Family history of diabetes mellitus Social History Preferred Language: Albanian Communication Ability: Effective Visual Impairment: No Limitations Hearing Ability: Use of Hearing Aid Trombone Slide Assembler Required: No Beliefs That Will Affect Care: None marital status: Current Living Situation: Spouse current occupational status: retired current occupation: Retired Under [employer] Feels Safe at Home: Yes Smoking Status: Former smoker Tobacco Type: smokeless tobacco ; packs per day: 0.5 ; Do You Dip or Chew Tobacco: Yes ; Second Hand Exposure: No ; Hx Alcohol Use: No Hx Substance Use: No Childhood Exposure to Second-Hand Smoke: Yes caffeine: Yes (3 cups of coffee/week with tea inbetween ) during the past year weight has: decreased > 10 lbs Dental Care, Regularly: No Review of Systems Review of Systems: Unobtainable due to endotracheal tube Physical Exam Physical Exam: Temp Pulse Resp BP Pulse Ox 37 C 93 H 16 110/64 90 02/16/20 11:43 02/16/20 14:45 02/16/20 13:15 02/16/20 14:57 02/16/20 14:45 Constitutional: Acutely ill in appearance Respiratory: Decreased breath sounds in the bases Cardiovascular: Rate/Rhythm: regular rate Heart Sounds: no murmur Gastrointestinal (Abdomen): Ventral hernia Neurologic: Unobtainable as the patient is sedated on the ventilator Results & Data ([place]) Vital Signs (Past 12 Hours) Vital Signs Temp Pulse Resp BP Pulse Ox 02/16/20 14:57 110/64 02/16/20 14:45 93 H 113/67 90 02/16/20 14:30 84 108/66 99 02/16/20 14:24 99 H 117/90 99 02/16/20 14:15 113 H 125/84 100 02/16/20 14:00 120 H 133/79 100 02/16/20 13:45 123 H 126/95 99 02/16/20 13:30 127 H 134/96 98 02/16/20 13:15 132 H 16 165/91 H 92 02/16/20 13:00 127 H 31 H 139/84 97 02/16/20 12:56 126 H 23 106/84 92 02/16/20 12:31 119 H 24 145/88 H 97 02/16/20 12:00 114 H 22 108/75 97 02/16/20 11:48 125 H 25 H 112/88 96 02/16/20 11:43 37 C 120 H 25 H 112/88 95 Laboratory Results Cardiac Enzymes 02/16/20 Range/Units 11:58 AST 34 (15-37) U/L Troponin I < 0.015 (0-0.045) ng/ml Coagulation 02/16/20 Range/Units 11:58 PT 12.4 H (9.0-12.0) Seconds APTT 23.8 (21.0-31.0) Seconds CBC 02/16/20 Range/Units 11:58 WBC 14.39 H (4.8-10.8) K/uL RBC 3.95 L (4.7-6.1) M/uL Hgb 12.9 L (14.0-18.0) g/dL Hct 38.3 L (42-52) % Plt Count 202 (130-400) K/uL Neut # (Auto) 12.78 H (1.4-6.5) K/uL Lymph # (Auto) 0.91 L (1.2-3.4) K/uL [place] # (Auto) 0.64 H (0.11-0.59) K/uL Eos # (Auto) 0.01 (0-0.5) K/uL Baso # (Auto) 0.02 (0-0.2) K/uL Comprehensive Metabolic Panel 02/16/20 Range/Units 11:58 Sodium 143 (136-145) mmol/L Potassium 4.4 (3.5-5.1) mmol/L Chloride 109 H (98-107) mmol/L Carbon Dioxide 21 (21-32) mmol/L BUN 19 H (7-18) mg/dl Creatinine 1.64 H (0.6-1.4) mg/dl Glucose 149 H (70-99) mg/dl Calcium 9.4 (8.5-10.1) mg/dl AST 34 (15-37) U/L ALT 32 (12-78) U/L Alkaline Phosphatase 78 (45-117) U/L Total Protein 7.4 (6.4-8.2) gm/dl Albumin 3.5 (3.4-5.0) gm/dl Intake and Output 02/16/20 02/16/20 02/16/20 06:59 14:59 22:59 Other: Weight 63 kg Patient Weight 02/17/20 06:59 Weight 63 kg
[2020-02-16] MEDS ORDERED: ALBUMIN HUMAN 5% 12.5 GM/250 ML VIAL IV ONE (15:25)
--- NOTE | 2020-02-16 15:51 | Procedure Note ---
Procedure Note Date of Service February 16, 2020 Radial arterial line placed in ED preoperatively in preparation for emergent incarcerated hernia surgery with Dr. Shafer. Right wrist prepped with chlorhexidine and draped with sterile towels. 20 G angiocath placed under sterile technique utilizing sterile gloves, surgical hats and masks. Catheter threaded using seldinger technique with return of pulsatile, bright red blood. Site covered with occlusive dressing and taped in place. Waveform consistent with correct arterial placement. After placement, fingers of procedural hand had normal perfusion. Patient tolerated procedure well without complications. Meghan Robert MD, PhD Anesthesiologist Coding
[2020-02-16 15:54] LABS: iSTAT Creatinine 1.1 mg/dl (0.6-1.3); iSTAT Hemoglobin 9.2 g/dl (14.0-18.0); iSTAT Ionized Calcium 1.18 mmol/l (1.12-1.32); iSTAT Potassium 3.8 mmol/L (3.3-5.0)
[2020-02-16 15:54] LABS: iSTAT Arterial Blood Gas HCO3 22 meg/L (19-24); iSTAT Arterial Blood Gas pCO2 42 mmHg (35-46); iSTAT Arterial Blood Gas pH 7.32 (7.35-7.45); iSTAT Arterial Blood Gas pO2 263 mmHg (80-95); iSTAT Carbon Dioxide 23 mmol/L (24-31); iSTAT Hematocrit 25 % (42-52); iSTAT Hemoglobin 8.5 g/dl (14.0-18.0); iSTAT Potassium 3.6 mmol/L (3.3-5.0); iSTAT Sodium 144 mmol/L (135-144)
--- NOTE | 2020-02-16 16:24 | Operative Report ---
PG Post Operative Report Pre & Post Diagnosis Operation Date: 02/16/20 12:30 Pre-Op Diagnosis: Incarcerated umbilical hernia Post-Op Diagnosis: Incarcerated Ventral Hernia x 2, Small bowel Obstruction I identified the patient and participated in the time-out.: Yes Procedure Operation Date: 02/16/20 12:30 Actual Procedures p Open Ventral Hernia Repair(Not Applicable) x 2; release of small bowel obstruction - Regulo Shafer DO Surgeon Regulo Shafer DO Pool Finisher kristopher Klein Estimated Blood Loss 15 Findings Consistent with Post-Op Diagnosis Specimens hernia sac Description of Procedure After informed consent was obtained the patient already intubated in the ER was taken to the operating room and placed in supine position. An orogastric tube had already been placed as well as a Gustafson catheter. The abdomen was then sterilely prepped and draped in usual fashion. I began with a small incision from above the umbilicus down and around the umbilicus over the area of the visible hernia. This was carried down through soft tissue using cautery. I ended up needing to extend this superiorly. We encountered a large hernia sac with bowel incarcerated within it. There is also ascites within the hernia sac making differentiation between the sac and incarcerated bowel somewhat difficult. I ended up dividing fascia lateral to the sac and bowel so that I could enter the peritoneal cavity safely. Once in the peritoneal cavity I was able to extend this incision through the fascia to both poles of the incision. There were several hernia defects in Nigerien cheese type of fashion. All of them were above the umbilicus itself. I had to enlarge the one hernia defect in order to reduce the bowel. Once I got the bowel out there was some mild ischemia but no infarction. It was a complete bowel obstruction before we released it. There did not appear to be any serosal injury. There was a moderate amount of ascites. I then excised both hernia sacs in their entirety using cautery and sent them to pathology. We thoroughly irrigated the wound. No other gross abnormalities were identified. Any small bleeding points were controlled using cautery. I then closed the fascial defect using #1 Ethibond in simple interrupted fashion. I decided with all of his comorbidities as well as with incarcerated bowel ascites etc. that it would not be martinez to place a foreign body. I therefore used #1 Ethibond in simple interrupted fashion to primarily close the fascia from top to bottom. After the fascia was closed I reapproximated his umbilicus using 0 Vicryl. We then irrigated soft tissue and closed with 2-0 Vicryl for the subcutaneous layer and skin was closed with 3-0 Monocryl in a running fashion to help reduce any leakage of ascites. We then placed Dermabond over the entire wound. The patient remained intubated and was transferred to the intensive care unit in critical condition. My physician sales assistant entertainment and media was present throughout the entire case. She helped prep the patient. She helped with retraction during my repair as well as with wound closure and dressing placement. I attest to the content of the Intraoperative Record and any orders documented therein. Any exceptions are noted below.
[2020-02-16] MEDS ORDERED: ICU PROTOCOL FOR HYPERGLYCEMIA PRN (17:06)
--- NOTE | 2020-02-16 17:10 | Electrocardiogram Report ---
Test Reason : Blood Pressure : / mmHG Vent. Rate : 124 BPM Atrial Rate : 124 BPM P-R Int : 000 ms QRS Dur : 056 ms QT Int : 380 ms P-R-T Axes : 000 029 074 degrees QTc Int : 545 ms Poor data quality, interpretation may be adversely affected Likely sinus tachycardia Low voltage QRS ST elevation, consider early repolarization, pericarditis, or injury Abnormal ECG When compared with ECG of 16-FEB-2020 11:48, Significant changes have occurred Confirmed by Navneet Ortega ([id number]) on 02/16/2020 5:10:18 PM Referred By: REFERRED SELF Confirmed By:Anup Ortega
--- NOTE | 2020-02-16 17:10 | Electrocardiogram Report ---
Test Reason : Blood Pressure : / mmHG Vent. Rate : 092 BPM Atrial Rate : 092 BPM P-R Int : 186 ms QRS Dur : 072 ms QT Int : 402 ms P-R-T Axes : 066 -04 065 degrees QTc Int : 497 ms Normal sinus rhythm Low voltage QRS Prolonged QT Abnormal ECG When compared with ECG of 16-FEB-2020 13:37, (unconfirmed) ST no longer elevated in Inferior leads ST no longer elevated in Lateral leads Confirmed by Navneet Ortega ([id number]) on 02/16/2020 5:10:30 PM Referred By: REFERRED SELF Confirmed By:Anup Ortega
--- NOTE | 2020-02-16 17:34 | Critical Care Consultation ---
Date of Consultation February 16, 2020 Assessment & Plan (1) S/P admission to ICU (intensive care unit): This is a 80-year-old male with a previous history of head and neck cancer, cirrhosis status post TIPS procedure with continued accumulation of ascites who presented to the hospital with ventral hernia incarceration and SBO which was operated upon. Patient is currently intubated, sedated on propofol and recently received rocuronium. Will use fentanyl for analgesia and try to wean down the propofol. I am reluctant to start oral Xifaxan or lactulose at this time given the concerns of a possible GI bleed and obviously given that he just had a laparotomy. We will consult our GI colleagues to further assist in his care evaluate for the possibility of an EGD and further comment on his encephalopathy. We will use albumin for resuscitation. Continue octreotide and Protonix drips. Trend CBC every 6 hours and maintain hemoglobin above 7 unless active bleeding is seen or acute coronary syndrome is seen. Continue Zosyn given his GI pathology. No obvious evidence of pneumonia or urinary tract infection. LFTs appeared unremarkable. Repeat LFTs pending. Repeat chemistry is also pending. ABG demonstrated metabolic acidosis with a pH of 7.32/42/263/22. Cardiology is following patient given the ST segment changes noted in the ER. Follow the recommendations and obtain an echocardiogram tomorrow. Trend troponin. Monitor for signs of intra-abdominal hypertension in light of his significant abdominal surgery. CRITICAL CARE TIME - I have personally spent 40 minutes of critical care time in the direct management of this patient. This is a life/limb threatening event. This includes time spent evaluating patient, direct bedside care, chart review, placing orders, interpretation of diagnostic studies, discussion with consultants, patient, and family members, as well as other required patient management activities. This time is exclusive of all separately billable procedures, and teaching time and separate from and in addition to any other critical care service time. (2) Abnormal electrocardiogram [ECG] [EKG]: (3) Incarcerated ventral hernia: (4) Acute respiratory distress: (5) SBO (small bowel obstruction): (6) Decompensated hepatic cirrhosis: (7) Hyperammonemia: (8) Upper GI bleed: History of Present Illness Reason for Consultation: Incarcerated ventral hernia with a small bowel obstruction on ventilatory support Requesting Physician: Dr. Kalyn Ambriz Attending Physician: Kalyn Ambriz DO History of Present Illness This is a 40-year-old male with a past medical history of cirrhosis status post TIPS procedure in February 2019, head and neck cancer status post radiation (? Stage IV), CKD stage III, paroxysmal atrial fibrillation, obstructive sleep apnea and diabetes mellitus who presented to the hospital with altered mental status and vomiting. Patient was found to have an elevated ammonia in the ER and was intubated in the ER due to severe vomiting. I discussed the case with the anesthesiologist Dr. Ross who indicated the patient had a large volume of coffee-ground emesis. I was unable to obtain any history from the patient as he was intubated and recently paralyzed with rocuronium. General surgery had evaluated the patient and decided that he needed to go urgently to the OR for concern of incarcerated hernia versus small bowel obstruction. In the ER he was found to have concern for an ST segment elevation in the lateral leads and thus cardiology was consulted. Dr. Calzada called me and had noted that he appeared to have some apical wall motion abnormality on a [id number] echo that he did and then after he received a dose of metoprolol in the ER his tachycardia had subsided and he was elected to go to the OR. In the OR he underwent an open ventral hernia repair x2 and a release of a small bowel obstruction. He received roughly 1500 mL of fluid in the ER and boluses of albumin in the OR after a moderate amount of ascites was removed from the peritoneal cavity. Upon exam, the patient is paralyzed. He has [address] and an arterial line in place. Gustafson catheter is also in place. Chest x-ray demonstrates no acute infiltrate with an endotracheal tube in place. CT head with no acute abnormality. CT abdomen and pelvis demonstrated findings concerning for high-grade partial or complete small bowel obstruction and an interval development of herniated short segment of small bowel within the ventral hernia. Ascites was also seen. Allergies Allergy/AdvReac Type Severity Reaction Status Date / Time No Known Allergies Allergy Verified 02/16/20 13:03 Home Medications Home Medications Medication Instructions Recorded Confirmed Type Centrum Silver 1 tab PO QAM 12/21/18 02/16/20 History tamsulosin [Flomax] 0.4 mg PO QAM 12/21/18 02/16/20 History loratadine 10 mg PO DAILY PRN 01/07/19 02/16/20 History polyethylene glycol 3350 [Miralax] 17 g PO DAILY PRN 01/27/19 02/16/20 History artificial tears(hypromellose) 0.3 1 drops OP QID PRN 02/17/19 02/16/20 History % eye gel cholecalciferol (vitamin D3) 50 2,000 units PO QAM tab 02/17/19 02/16/20 History mcg (2,000 unit) tablet sodium chloride 0.65 % nasal spray 2 sprays INTNAS QID PRN 02/17/19 02/16/20 History aerosol Xifaxan 550 mg PO BID 06/12/19 02/16/20 History lactulose 45 ml PO TID 08/06/19 02/16/20 History Restasis 1 drp OPHTHALMIC (EYE) Q12H 09/22/19 02/16/20 History atorvastatin [Lipitor] 10 mg PO HS 09/22/19 02/16/20 History lancets 09/22/19 02/16/20 History omeprazole 20 mg PO DAILY 09/22/19 02/16/20 History ipratropium bromide 2 spray INTRANASAL QID PRN 10/02/19 02/16/20 History azelastine 2 spray INTRANASAL BID 11/17/19 02/16/20 History fluoride (sodium) [PreviDent 5000 1 applic DENTAL TID 11/17/19 02/16/20 History Plus] pilocarpine HCl 5 mg tablet 5 mg PO TID #90 tab 12/23/19 02/16/20 Rx ciprofloxacin HCl 500 mg PO DAILY 01/11/20 02/16/20 History fluoride (sodium) [DentaGel] 1 applic DENTAL DAILY 02/16/20 02/16/20 History furosemide [Lasix] 20 mg PO DAILY 02/16/20 02/16/20 History ondansetron 4 mg PO Q8 PRN 02/16/20 02/16/20 History spironolactone [Aldactone] 100 mg PO QAM 02/16/20 02/16/20 History Patient History Medical History Anemia Ascites (Chronic) 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 Elevated LFTs suspected to be from DILI vs AIH. LFTs normalized now so immunosuppression use was deferred. 4L fluid drained 12/15. Abdomen noticeably distended at PAT appt on 12/31/18. BPH (benign prostatic hyperplasia) (Chronic) Cirrhosis (Chronic) Depression (Chronic) Diabetes mellitus, type II (Chronic) PER , METFORMIN RECENTLY D/C. GERD (gastroesophageal reflux disease) (Chronic) History of abdominal paracentesis (Resolved) 06/11/19, 02/08/19, 11/2018 HLD (hyperlipidemia) (Chronic) HTN (hypertension) (Chronic) No current meds Paroxysmal A-fib (Chronic) FOLLOWS W/ [facility] Poor historian PVCs (premature ventricular contractions) (Chronic) Sleep apnea (Chronic) NO DEVICE USED Spontaneous bacterial peritonitis (Resolved) Jun 2018. Pt was admitted for a fib RVR and ascites, fluid drawn from abdomen showed SBP. Treated with ABX and discharged. Following now with [facility] (Tyler/Lizzette Mitchell) and Dr. Monreal (Hepatology). Umbilical hernia Surgical History History of adenoidectomy (Chronic) 01/11/19 History of cataract surgery (Chronic) RT/LEFT History of colonoscopy (Chronic) 01/30/16 History of ERCP (Chronic) 05/12/18 - stent removed History of esophagogastroduodenoscopy (EGD) (Chronic) 11/07/2010, 06/23/18 - with endoscopic US History of eye surgery (Chronic) 2008 - TEAR DUCT OPENED UP History of hernia repair (Chronic) 04/02/18 History of intraocular lens implant (Chronic) 2008 - Bilateral History of laryngoscopy (Chronic) 01/11/19 - with biopsies + right modified radical cervical lymphadenectomy History of liver biopsy (Chronic) 05/2018 History of tonsillectomy (Chronic) 01/11/19 History of tooth extraction (Chronic) 01/11/19 S/P cholecystectomy (Chronic) 04/02/2018. Yan 2, grade 1 view. 8.0 ETT. 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 Sister , Passed age 6 months of pneumonia No problems noted. Brother , Passed in late 50's of MD No problems noted. Sister , Passed in 60's of diabetic complications No problems noted. Sister No problems noted. Daughter Breast cancer, Onset Age: 40 Stage III - Currently doing well Brother No problems noted. Brother No problems noted. 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 He is currently intubated and paralyzed. Eyes: Pupils pinpoint ENMT: Endotracheal tube and OG tube are in place. Neck: normal visual inspection Respiratory: normal respiratory effort, lungs clear to auscultation Cardiovascular: RRR, no murmur, no edema Gastrointestinal (Abdomen): Abdomen is soft and nontender. Surgical wound is present and appears clean and intact Musculoskeletal: no cyanosis or clubbing, extremities motor strength 5/5 Skin: no rashes, warm and dry Neurologic: Exam is limited as patient is currently sedated and paralyzed. Psychiatric: Unobtainable given the patient's condition. Results & Data Results & Data ([facility]) Vital Signs (Past 12 Hours) Vital Signs Temp Pulse Pulse Resp BP BP BP 02/16/20 17:10 18 02/16/20 16:50 75 86 16 109/76 135/66 02/16/20 16:45 84 16 110/71 135/63 02/16/20 16:40 98.1 F 78 16 107/68 129/59 L 02/16/20 14:57 110/64 02/16/20 14:55 84 16 122/77 135/63 02/16/20 14:45 93 H 113/67 02/16/20 14:30 84 108/66 02/16/20 14:24 99 H 117/90 02/16/20 14:15 113 H 125/84 02/16/20 14:00 119 H 133/79 02/16/20 13:45 123 H 126/95 02/16/20 13:30 127 H 134/96 02/16/20 13:15 132 H 16 165/91 H 02/16/20 13:00 127 H 31 H 139/84 02/16/20 12:56 126 H 23 106/84 02/16/20 12:31 119 H 24 145/88 H 02/16/20 12:00 114 H 22 108/75 02/16/20 11:48 125 H 25 H 112/88 02/16/20 11:43 98.6 F 120 H 25 H 112/88 Pulse Ox 02/16/20 17:10 02/16/20 16:50 95 02/16/20 16:45 93 02/16/20 16:40 94 02/16/20 14:57 02/16/20 14:55 92 02/16/20 14:45 90 02/16/20 14:30 99 02/16/20 14:24 99 02/16/20 14:15 100 02/16/20 14:00 100 02/16/20 13:45 99 02/16/20 13:30 98 02/16/20 13:15 92 02/16/20 13:00 97 02/16/20 12:56 92 02/16/20 12:31 97 02/16/20 12:00 97 02/16/20 11:48 96 02/16/20 11:43 95 I personally reviewed the patient's laboratory data chest imaging and previous notes. Coding Level of Care Code Critical Care 1st 30-74 mins Diagnoses S/P admission to ICU (intensive care unit) Abnormal electrocardiogram [ECG] [EKG] R94.31 Incarcerated ventral hernia K43.6 Acute respiratory distress R06.03 SBO (small bowel obstruction) K56.609 Decompensated hepatic cirrhosis K72.90 Hyperammonemia E72.20 Upper GI bleed K92.2 Time Spent (min) 40
[2020-02-16 17:35] LABS: BUN Creatinine Ratio 13.3 (10-20); Calcium 7.8 mg/dl (8.5-10.1); Creatinine Clr Calc Pharmacy 41.4 ml/min; Est GFR (African American) 60.7; Est GFR (Non-African American) 52.4; Potassium 3.6 mmol/L (3.5-5.1)
[2020-02-16 17:42] LABS: Bilirubin,Total 1.3 mg/dl (0.2-1); Globulin 3.1 gm/dl (2.5-4.0); Phosphorus 4.5 mg/dl (2.5-4.9); Total Protein 6.1 gm/dl (6.4-8.2); Troponin I 1.88 ng/ml (0-0.045)
[2020-02-16] MEDS: fentaNYL DRIP 1,250 MCG/250 ML BAG IV SCH (17:46)
--- NOTE | 2020-02-16 17:46 | Anesthesiology Progress Note ---
Date of Service February 16, 2020 Anesthesia Post Procedure Vital Signs Vital Signs: Temp Pulse Pulse Resp BP BP BP 02/16/20 17:10 18 02/16/20 17:06 36.2 C L 81 16 122/77 143/72 H 02/16/20 16:50 75 86 16 109/76 135/66 02/16/20 16:45 84 16 110/71 135/63 02/16/20 16:40 36.7 C 78 16 107/68 129/59 L 02/16/20 14:57 110/64 02/16/20 14:55 84 16 122/77 135/63 02/16/20 14:45 93 H 113/67 02/16/20 14:30 84 108/66 02/16/20 14:24 99 H 117/90 02/16/20 14:15 113 H 125/84 02/16/20 14:00 119 H 133/79 02/16/20 13:45 123 H 126/95 02/16/20 13:30 127 H 134/96 02/16/20 13:15 132 H 16 165/91 H 02/16/20 13:00 127 H 31 H 139/84 02/16/20 12:56 126 H 23 106/84 02/16/20 12:31 119 H 24 145/88 H 02/16/20 12:00 114 H 22 108/75 02/16/20 11:48 125 H 25 H 112/88 02/16/20 11:43 37 C 120 H 25 H 112/88 Pulse Ox 02/16/20 17:10 02/16/20 17:06 97 02/16/20 16:50 95 02/16/20 16:45 93 02/16/20 16:40 94 02/16/20 14:57 02/16/20 14:55 92 02/16/20 14:45 90 02/16/20 14:30 99 02/16/20 14:24 99 02/16/20 14:15 100 02/16/20 14:00 100 02/16/20 13:45 99 02/16/20 13:30 98 02/16/20 13:15 92 02/16/20 13:00 97 02/16/20 12:56 92 02/16/20 12:31 97 02/16/20 12:00 97 02/16/20 11:48 96 02/16/20 11:43 95 Transfer of Care Handoff Completed per policy Notes Mental Status: see notes below Patient Amnestic to Procedure: Yes Nausea / Vomiting: adequately controlled Pain: adequately controlled Airway Patency, RR, SpO2: stable & adequate BP & HR: stable & adequate Hydration State: stable & adequate Anesthetic Complications: no major complications apparent Notes: Patient taken intubated and sedated back to the ICU. Sign out provided to the ICU team.
[2020-02-16 17:48] LABS: Basophils # (auto) 0.01 K/uL (0-0.2); Basophils % (auto) 0.1 %; Eosinophils # (auto) 0.01 K/uL (0-0.5); Eosinophils % (auto) 0.1 %; Hematocrit (blood only) 29.6 % (42-52); Hemoglobin 9.9 g/dL (14.0-18.0); Immature Granulocytes # (auto) 0.05 K/uL (0.00-0.02); Immature Granulocytes % (auto) 0.3 %; Lymphocytes # (auto) 0.68 K/uL (1.2-3.4); Lymphocytes % (auto) 4.4 %; Mean Corpuscular Hemoglobin 32.4 pg (25-34); Mean Corpuscular Hgb Conc 33.4 g/dL (32-36); Mean Corpuscular Volume 96.7 fL (80-100); Mean Platelet Volume 9.3 fL (7.4-10.4); Monocytes # (auto) 0.66 K/uL (0.11-0.59); Monocytes % (auto) 4.2 %; Neutrophils # (auto) 14.15 K/uL (1.4-6.5); Neutrophils % (auto) 90.9 %; Platelet Count 169 K/uL (130-400); RDW Coefficient of Variation 14.6 % (11.5-14.5); RDW Standard Deviation 51.4 fL (36.4-46.3); Red Blood Count 3.06 M/uL (4.7-6.1); White Blood Count 15.56 K/uL (4.8-10.8)
[2020-02-16] MEDS: propofoL 1,000 MG/100 ML VIAL IV SCH ×2 (17:50→20:32)
--- NOTE | 2020-02-16 18:00 | Communication Note ---
Date of Service: February 16, [address] Robert of anesthesia post operatively. Patient remained hemodynamically stable in the OR. IV albumin administered given removal of a large volume of ascites. I reassessed pt in the ICU, room 109. Remains on the ventilator , FIO2 of 50%. SBP 136 by radial arterial line. On Octreotide, protonix, fentanyl, and propofol infusions. Not requiring pressors. Data: Hgb 9.9 repeat (post op) troponin 1.88 EKG performed in ICU revealed SR in the 80s, artifact in V2 ,V3, otherwise stable findings without significant ST elevation or depression. Impression / Plan: Mild troponin elevation is not surprising given degree of illness. Continue supportive care.
[2020-02-16] MEDS: PIPERACILLIN/TAZOBACTAM 4.5 GM in DEXTROSE 5% 100 ML IV SCH (18:40)
[2020-02-16] MEDS ORDERED: NORMOSOL-R 500 ML IV ONE (20:37)
[2020-02-16] MEDS ORDERED: ALBUMIN 25% 50 ML IV ONE ×2 (20:37→20:58)
[2020-02-16] MEDS: NOREPINEPHRINE BIT INJ 8 MG in DEXTROSE 5% 500 ML IV SCH (21:29)
[2020-02-16] MEDS ORDERED: ACETAMINOPHEN 65 ML IV ONE (22:45)
[2020-02-16 23:25] LABS: Hematocrit (blood only) 26.5 % (42-52); Hemoglobin 9.1 g/dL (14.0-18.0); Mean Corpuscular Hemoglobin 32.5 pg (25-34); Mean Corpuscular Hgb Conc 34.3 g/dL (32-36); Mean Corpuscular Volume 94.6 fL (80-100); Platelet Count 139 K/uL (130-400); RDW Coefficient of Variation 14.7 % (11.5-14.5); RDW Standard Deviation 50.7 fL (36.4-46.3); White Blood Count 13.05 K/uL (4.8-10.8)
[2020-02-17 00:01] LABS: Basophils # (auto) 0.03 K/uL (0-0.2); Basophils % (auto) 0.2 %; Eosinophils # (auto) 0.07 K/uL (0-0.5); Eosinophils % (auto) 0.5 %; Immature Granulocytes # (auto) 0.03 K/uL (0.00-0.02); Immature Granulocytes % (auto) 0.2 %; Lymphocytes # (auto) 1.28 K/uL (1.2-3.4); Lymphocytes % (auto) 9.8 %; Monocytes # (auto) 0.32 K/uL (0.11-0.59); Monocytes % (auto) 2.5 %; Neutrophils # (auto) 11.32 K/uL (1.4-6.5); Neutrophils % (auto) 86.8 %
[2020-02-17] MEDS ORDERED: NORMOSOL-R 500 ML IV ONE ×2 (00:13→08:04)
[2020-02-17 00:46] LABS: HCO3 ABG 18 mmol/L (19-24); Oxygen Saturation ABG 95.5 % (90-95); PCO2 ABG 24 mmHg (35-46); PO2 ABG 75 mmHg (80-95); pH ABG 7.49 (7.35-7.45)
[2020-02-17 00:47] LABS: Allen Test POS (Pos)
[2020-02-17 00:58] LABS: BUN Creatinine Ratio 16.4 (10-20); Calcium 7.4 mg/dl (8.5-10.1); Creatinine Clr Calc Pharmacy 42.7 ml/min; Est GFR (African American) 63.1; Est GFR (Non-African American) 54.4; Potassium 3.5 mmol/L (3.5-5.1)
[2020-02-17] MEDS ORDERED: STAT IV Infusion **Titration per Protocol STA (01:52)
[2020-02-17] MEDS ORDERED: NORMOSOL-R 1,000 ML IV SCH (02:00)
[2020-02-17] MEDS: VASOPRESSIN 20 UNITS in 0.9 % SODIUM CHLORIDE 100 ML IV SCH ×3 (02:26→22:13)
[2020-02-17] MEDS: PIPERACILLIN/TAZOBACTAM 4.5 GM in DEXTROSE 5% 100 ML IV SCH ×3 (02:26→18:00)
[2020-02-17] MEDS: OCTREOTIDE ACETATE 500 MCG in 0.9 % SODIUM CHLORIDE 100 ML IV SCH ×2 (02:37→12:24)
[2020-02-17] MEDS: PANTOprazole 40 MG in DEXTROSE 5% 100 ML IV SCH ×4 (02:41→23:04)
[2020-02-17] MEDS ORDERED: ALBUTEROL HFA 8 GM INHALER INH PRN (03:55)
[2020-02-17 04:24] LABS: Hematocrit (blood only) 26.6 % (42-52); Hemoglobin 9.1 g/dL (14.0-18.0); Mean Corpuscular Hemoglobin 32.6 pg (25-34); Mean Corpuscular Hgb Conc 34.2 g/dL (32-36); Mean Corpuscular Volume 95.3 fL (80-100); Platelet Count 144 K/uL (130-400); RDW Coefficient of Variation 14.7 % (11.5-14.5); RDW Standard Deviation 50.3 fL (36.4-46.3); Red Blood Count 2.79 M/uL (4.7-6.1); White Blood Count 14.28 K/uL (4.8-10.8)
[2020-02-17 04:26] LABS: Base Excess ABG -4.6 mEq/L (-9-1.8); HCO3 ABG 18 mmol/L (19-24); Oxygen Saturation ABG 97.2 % (90-95); PCO2 ABG 25 mmHg (35-46); PO2 ABG 84 mmHg (80-95); pH ABG 7.48 (7.35-7.45)
[2020-02-17 04:27] LABS: Allen Test POS (Pos)
[2020-02-17 04:31] LABS: INR 1.5 (0.9-1.1); Prothrombin Time 15.1 Seconds (9.0-12.0)
[2020-02-17 04:41] LABS: Albumin Level 2.8 gm/dl (3.4-5.0); BUN Creatinine Ratio 14.4 (10-20); Bilirubin Direct 0.5 mg/dl (0-0.2); Calcium 7.5 mg/dl (8.5-10.1); Creatinine Clr Calc Pharmacy 39.5 ml/min; Est GFR (African American) 57.5; Est GFR (Non-African American) 49.6; Magnesium 1.5 mg/dl (1.8-2.4); Potassium 3.5 mmol/L (3.5-5.1)
[2020-02-17 04:51] LABS: Anisocytosis Present; Basophils # (auto) 0.07 K/uL (0-0.2); Basophils % (auto) 0.5 %; Dohle Bodies 1+; Echinocytes 1+; Eosinophils # (auto) 0.28 K/uL (0-0.5); Immature Granulocytes # (auto) 0.03 K/uL (0.00-0.02); Immature Granulocytes % (auto) 0.2 %; Lymphocytes # (auto) 1.29 K/uL (1.2-3.4); Monocytes # (auto) 0.41 K/uL (0.11-0.59); Monocytes % (auto) 2.9 %; Neutrophils % (auto) 85.4 %; Polychromasia 1+
[2020-02-17 04:52] LABS: Bilirubin,Total 2.1 mg/dl (0.2-1); Phosphorus 3.5 mg/dl (2.5-4.9); Total Protein 5.3 gm/dl (6.4-8.2); Troponin I 7.5 ng/ml (0-0.045)
--- NOTE | 2020-02-17 06:22 | XRay Report ---
XR chest 1V portable CLINICAL HISTORY: f/u dyspnea COMPARISON STUDY: 02/16/2020 FINDINGS: Developing pulmonary edema. Endotracheal tube 3.5 cm above the gareth. Diaphragms are zohaib h. Diffuse bilateral parenchymal infiltrative change. IMPRESSION: Developing pulmonary edema ACT 112: Negative or not required by law. The above report was generated using voice recognition software. It may contain grammatical, syntax or spelling errors. Electronically signed by: Cuong Israel M.D. 02/17/2020 6:21 AM
--- NOTE | 2020-02-17 08:11 | Critical Care Progress Note ---
Date of Service February 17, 2020 Assessment & Plan (1) S/P admission to ICU (intensive care unit): Patient is currently intubated and sedated with fentanyl. He is unresponsive and does not have any purposeful movements. We will stop the fentanyl and start lactulose per rectum. Give another 500 cc bolus of normasol today to try to reduce his pressor requirements. If we cannot do this, will likely place a central line. Continue full ventilatory support. Plateau pressures less than 30. Chest x-ray with evidence of bilateral infiltrates likely related to aspiration pneumonia. Continue Zosyn. Obtain procalcitonin today. Follow-up lactate. Urine output has been sluggish overnight. Hopefully the fluid bolus will help with the urine output. If he needs more fluid resuscitation we will start albumin. GI has been consulted for possible GI bleed. Hemoglobin has been stable. Continue octreotide and Protonix drip for now. Troponin is trending upwards. Cardiology is on board. He will need echocardiogram. Holding anticoagulation due to concerns of a GI bleed. Hold tube feeds for today. Surgery is following for his ventral hernia and small bowel obstruction that was repaired yesterday. Patient remains critically ill. CRITICAL CARE TIME - I have personally spent 35 minutes of critical care time in the direct management of this patient. This is a life/limb threatening event. This includes time spent evaluating patient, direct bedside care, chart review, placing o rders, interpretation of diagnostic studies, discussion with consultants, patient, and family members, as well as other required patient management activities. This time is exclusive of all separately billable procedures, and teaching time and separate from and in addition to any other critical care service time. (2) Upper GI bleed: (3) Incarcerated ventral hernia: (4) Acute hepatic encephalopathy: (5) Decompensated hepatic cirrhosis: (6) Hyperammonemia: (7) Hepatic encephalopathy: Admission and Anticipated Discharge Date Admission Date: February 16, 2020 Subjective Patient is currently intubated and sedated. Overnight he had some issues with hypoxemia and required an increased level of PEEP. He also developed hypotension and is currently on norepinephrine and vasopressin. He is currently on fentanyl for pain control. He is very obtunded. Review of Systems Review of Systems: Unobtainable due to endotracheal tube Physical Exam Constitutional: Patient is elderly and frail-appearing. He is currently intubated Eyes: Pupils pinpoint ENMT: Endotracheal tube and OG tube are in place. Neck: normal visual inspection Respiratory: normal respiratory effort, lungs clear to auscultation Cardiovascular: RRR, no murmur, no edema Gastrointestinal (Abdomen): Abdomen is soft and nontender. Surgical wound is present and appears clean and intact Musculoskeletal: no cyanosis or clubbing, extremities motor strength 5/5 Skin: no rashes, warm and dry Neurologic: Exam is limited as patient is currently sedated Psychiatric: Unobtainable given the patient's condition. Results & Data Results & Data ([facility]) Vital Signs (Past 12 Hours) Vital Signs Pulse Resp BP Pulse Ox 02/17/20 07:15 76 96 02/17/20 07:09 76 95/53 L 97 02/17/20 07:00 84 97 02/17/20 06:54 74 94/60 L 99 02/17/20 06:52 74 16 99 02/17/20 06:45 77 99 02/17/20 06:39 81 96/71 L 100 02/17/20 06:30 75 98 02/17/20 06:24 77 103/59 L 99 02/17/20 06:15 74 99 02/17/20 06:09 76 93/57 L 99 02/17/20 06:00 77 98 02/17/20 05:54 78 107/60 98 02/17/20 05:45 73 99 02/17/20 05:39 74 86/52 L 98 02/17/20 05:30 74 98 02/17/20 05:24 74 91/51 L 98 02/17/20 05:15 75 98 02/17/20 05:09 74 90/53 L 98 02/17/20 05:00 76 98 02/17/20 04:58 77 20 100 02/17/20 04:53 78 94/52 L 100 02/17/20 04:45 75 100 02/17/20 04:39 79 87/54 L 100 02/17/20 04:30 79 100 02/17/20 04:23 83 98/55 L 100 02/17/20 04:15 93 H 100 02/17/20 04:09 87 97/57 L 100 02/17/20 04:00 97 H 87 L 02/17/20 03:54 93 H 113/61 89 L 02/17/20 03:45 98 H 82 L 02/17/20 03:39 93 H 104/64 86 L 02/17/20 03:30 77 96 02/17/20 03:23 77 87/56 L 95 02/17/20 03:15 77 94 02/17/20 03:08 77 90/56 L 93 02/17/20 03:00 85 90 02/17/20 02:53 81 94/52 L 90 02/17/20 02:45 85 96 02/17/20 02:38 77 83/48 L 97 02/17/20 02:30 81 96 02/17/20 02:23 81 76/48 L 96 02/17/20 02:15 79 95 02/17/20 02:08 80 76/47 L 95 02/17/20 02:00 84 94 02/17/20 01:54 79 18 95 02/17/20 01:53 85 89/54 L 96 02/17/20 01:45 78 95 02/17/20 01:42 81 73/46 L 95 02/17/20 01:38 89 73/46 L 94 02/17/20 01:30 82 94 02/17/20 01:23 83 75/45 L 93 02/17/20 01:15 86 93 02/17/20 01:08 91 H 91/52 L 90 02/17/20 01:00 82 96 02/17/20 00:53 81 71/46 L 95 02/17/20 00:45 81 96 02/17/20 00:38 81 73/46 L 96 02/17/20 00:30 82 96 02/17/20 00:23 82 79/48 L 96 02/17/20 00:15 83 96 02/17/20 00:08 89 84/49 L 94 02/17/20 00:00 88 97 02/16/20 23:53 92 H 85/51 L 95 02/16/20 23:45 86 98 02/16/20 23:44 98 02/16/20 23:38 86 82/51 L 98 02/16/20 23:30 85 99 02/16/20 23:23 86 81/50 L 98 02/16/20 23:15 89 97 02/16/20 23:08 87 82/52 L 98 04/22/20 23:00 87 98 02/16/20 22:53 87 82/48 L 99 02/16/20 22:45 88 98 02/16/20 22:40 86 18 100 02/16/20 22:38 87 89/51 L 100 02/16/20 22:30 97 H 96 02/16/20 22:23 85 87/50 L 100 02/16/20 22:20 85 99 02/16/20 22:10 85 100 02/16/20 22:00 87 100 02/16/20 21:54 92 H 100 02/16/20 21:53 93 H 101/52 L 99 02/16/20 21:50 92 H 100 02/16/20 21:40 82 100 02/16/20 21:38 85 72/43 L 100 02/16/20 21:30 88 99 02/16/20 21:20 89 99 02/16/20 21:13 89 91/50 L 99 02/16/20 21:10 83 100 02/16/20 21:00 85 100 02/16/20 20:30 83 100 I personally reviewed his laboratory data, chest imaging and prior notes Coding Level of Care Code Critical Care 1st 30-74 mins Diagnoses S/P admission to ICU (intensive care unit) Upper GI bleed K92.2 Incarcerated ventral hernia K43.6 Acute hepatic encephalopathy K72.00 Decompensated hepatic cirrhosis K72.90 Hyperammonemia E72.20 Hepatic encephalopathy K72.90 Time Spent (min) 35
--- NOTE | 2020-02-17 08:41 | Gastrointestinal Consultation ---
Date of Consultation February 17, 2020 Assessment & Plan (1) Cirrhosis: 1. Would hold on lactulose for at least a few days. 2. He is certainly at risk for decompensation with major surgery. Will follow along. 3. Agree with holding his OP diuretics. Present on Admission?: Yes (2) GI bleed: No evidence of significant GI bleeding. No hx of esophageal varices. No plans for endoscopy. No clear indication for Protonix drip. PPI for prophylaxis IV push daily or BID is appropriate and could be changed to po when available. Present on Admission?: Yes Supervising Physician Co-Signing Physician Notes I have seen and examined the patient on 02/16 with CHRISTOFER Delacruz whose note reflects our findings and plan. History of Present Illness Reason for Consultation: UGI bleed Requesting Physician: Pb Attending Physician: Dolores Harris MD History of Present Illness Mr. Michelet Nelson is a 80 yr old male pt of Dr. Das with a hx of cirrhosis with ascites s/p TIPS procedure in 2019, paroxysmal atrial fibrillation off beta-clau secondary to bradycardia, CKD III, dyslipidemia, sleep apnea, DM II, BPH who was brought to the ED yesterday for altered mental status. He was witness to vomit coffee grounds emesis. GI was consulted for a GI bleed. Hb on arrival was 12, up from his approx baseline of 11. BUN normal. He was intubated and an IJ central line was placed. Imaging was consistent with a SBO, small amt of ascites. He underwent a due surgery by Dr. Gaming: open release sbo/repair of incarcerated ventral hernia. Today, she is ventilated, sedated, unresponsive, on pressors. Hb today remains stable post surgery at 9 w/o any transfusions and there has not been further evidence of GI bleeding. Allergies Allergy/AdvReac Type Severity Reaction Status Date / Time No Known Allergies Allergy Verified 02/16/20 13:03 Home Medications Home Medications Medication Instructions Recorded Confirmed Type Centrum Silver 1 tab PO QAM 12/21/18 02/16/20 History tamsulosin [Flomax] 0.4 mg PO QAM 12/21/18 02/16/20 History loratadine 10 mg PO DAILY PRN 01/07/19 02/16/20 History polyethylene glycol 3350 [Miralax] 17 g PO DAILY PRN 01/27/19 02/16/20 History artificial tears(hypromellose) 0.3 1 drops OP QID PRN 02/17/19 02/16/20 History % eye gel cholecalciferol (vitamin D3) 50 2,000 units PO QAM tab 02/17/19 02/16/20 History mcg (2,000 unit) tablet sodium chloride 0.65 % nasal spray 2 sprays INTNAS QID PRN 02/17/19 02/16/20 History aerosol Xifaxan 550 mg PO BID 06/12/19 02/16/20 History lactulose 45 ml PO TID 08/06/19 02/16/20 History Restasis 1 drp OPHTHALMIC (EYE) Q12H 09/22/19 02/16/20 History atorvastatin [Lipitor] 10 mg PO HS 09/22/19 02/16/20 History lancets 09/22/19 02/16/20 History omeprazole 20 mg PO DAILY 09/22/19 02/16/20 History ipratropium bromide 2 spray INTRANASAL QID PRN 10/02/19 02/16/20 History azelastine 2 spray INTRANASAL BID 11/17/19 02/16/20 History fluoride (sodium) [PreviDent 5000 1 applic DENTAL TID 11/17/19 02/16/20 History Plus] pilocarpine HCl 5 mg tablet 5 mg PO TID #90 tab 12/23/19 02/16/20 Rx ciprofloxacin HCl 500 mg PO DAILY 01/11/20 02/16/20 History fluoride (sodium) [DentaGel] 1 applic DENTAL DAILY 02/16/20 02/16/20 History furosemide [Lasix] 20 mg PO DAILY 02/16/20 02/16/20 History ondansetron 4 mg PO Q8 PRN 02/16/20 02/16/20 History spironolactone [Aldactone] 100 mg PO QAM 02/16/20 02/16/20 History Patient History Medical History (Updated 02/17/20 @ 23:04 by Dolores Harris MD) Anemia Ascites (Chronic) 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 Elevated LFTs suspected to be from DILI vs AIH. LFTs normalized now so immunosuppression use was deferred. 4L fluid drained 12/15. Abdomen noticeably distended at PAT appt on 12/31/18. BPH (benign prostatic hyperplasia) (Chronic) Cirrhosis (Chronic) Depression (Chronic) Diabetes mellitus, type II (Chronic) PER , [facility] RECENTLY D/C. GERD (gastroesophageal reflux disease) (Chronic) History of abdominal paracentesis (Resolved) 06/11/19, 02/08/19, 11/2018 HLD (hyperlipidemia) (Chronic) HTN (hypertension) (Chronic) No current meds Paroxysmal A-fib (Chronic) FOLLOWS W/ [facility] Poor historian PVCs (premature ventricular contractions) (Chronic) S/P admission to ICU (intensive care unit) Sleep apnea (Chronic) NO DEVICE USED Spontaneous bacterial peritonitis (Resolved) Jun 2018. Pt was admitted for a fib RVR and ascites, fluid drawn from abdomen showed SBP. Treated with ABX and discharged. Following now with [facility] ([facility]) and Dr. Monreal (Hepatology). Umbilical hernia Upper GI bleed Surgical History History of adenoidectomy (Chronic) 01/11/19 History of cataract surgery (Chronic) RT/LEFT History of colonoscopy (Chronic) 01/30/16 History of ERCP (Chronic) 05/12/18 - stent removed History of esophagogastroduodenoscopy (EGD) (Chronic) 11/07/2010, 06/23/18 - with endoscopic US History of eye surgery (Chronic) 2008 - TEAR DUCT OPENED UP History of hernia repair (Chronic) 04/02/18 History of intraocular lens implant (Chronic) 2008 - Bilateral History of laryngoscopy (Chronic) 01/11/19 - with biopsies + right modified radical cervical lymphadenectomy History of liver biopsy (Chronic) 05/2018 History of tonsillectomy (Chronic) 01/11/19 History of tooth extraction (Chronic) 01/11/19 S/P cholecystectomy (Chronic) 04/02/2018. Yan 2, grade 1 view. 8.0 ETT. 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 [place] Family History Mother , Passed age 49 from Leukemia No problems noted. Sister , Passed age 6 months of pneumonia No problems noted. Brother , Passed in late 50's of OR No problems noted. Sister , Passed in 60's of diabetic complications No problems noted. Sister No problems noted. Daughter Breast cancer, Onset Age: 40 Stage III - Currently doing well Brother No problems noted. Brother No problems noted. 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 Feels Safe at Home: Yes Smoking Status: Former smoker Tobacco Type: smokeless tobacco ; packs per day: 0.5 ; Second Hand Exposure: No ; Childhood Exposure to Second-Hand Smoke: Yes caffeine: Yes (3 cups of coffee/week with tea inbetween ) during the past year weight has: decreased > 10 lbs Dental Care, Regularly: No Review of Systems Review of Systems: Unable to obtain ROS due to unresponsive Physical Exam Constitutional: + thin Eyes: PERRL, conjunctivae normal, anicteric sclerae ENMT: external ear and nose normal, oropharynx normal Neck: trachea midline, no thyromegaly Respiratory: normal respiratory effort, lungs clear to auscultation Cardiovascular: RRR, no murmur, no edema Gastrointestinal (Abdomen): Inspection/Auscultation: + hypoactive bowel sounds; abdomen not distended Percussion/Palpation: abdomen soft; no ascites incision dry Skin: no rashes, warm and dry Neurologic: unresponsive Psychiatric: unable to assess. Results & Data ([facility]) Vital Signs (Past 12 Hours) Vital Signs Pulse Resp BP Pulse Ox 02/17/20 07:15 76 96 02/17/20 07:09 76 95/53 L 97 02/17/20 07:00 84 97 02/17/20 06:54 74 94/60 L 99 02/17/20 06:52 74 16 99 02/17/20 06:45 77 99 02/17/20 06:39 81 96/71 L 100 02/17/20 06:30 75 98 02/17/20 06:24 77 103/59 L 99 02/17/20 06:15 74 99 02/17/20 06:09 76 93/57 L 99 02/17/20 06:00 77 98 02/17/20 05:54 78 107/60 98 02/17/20 05:45 73 99 02/17/20 05:39 74 86/52 L 98 02/17/20 05:30 74 98 02/17/20 05:24 74 91/51 L 98 02/17/20 05:15 75 98 02/17/20 05:09 74 90/53 L 98 02/17/20 05:00 76 98 02/17/20 04:58 77 20 100 02/17/20 04:53 78 94/52 L 100 02/17/20 04:45 75 100 02/17/20 04:39 79 87/54 L 100 02/17/20 04:30 79 100 02/17/20 04:23 83 98/55 L 100 02/17/20 04:15 93 H 100 02/17/20 04:09 87 97/57 L 100 02/17/20 04:00 97 H 87 L 02/17/20 03:54 93 H 113/61 89 L 02/17/20 03:45 98 H 82 L 02/17/20 03:39 93 H 104/64 86 L 02/17/20 03:30 77 96 02/17/20 03:23 77 87/56 L 95 02/17/20 03:15 77 94 02/17/20 03:08 77 90/56 L 93 02/17/20 03:00 85 90 02/17/20 02:53 81 94/52 L 90 02/17/20 02:45 85 96 02/17/20 02:38 77 83/48 L 97 02/17/20 02:30 81 96 02/17/20 02:23 81 76/48 L 96 02/17/20 02:15 79 95 02/17/20 02:08 80 76/47 L 95 02/17/20 02:00 84 94 02/17/20 01:54 79 18 95 02/17/20 01:53 85 89/54 L 96 02/17/20 01:45 78 95 02/17/20 01:42 81 73/46 L 95 02/17/20 01:38 89 73/46 L 94 02/17/20 01:30 82 94 02/17/20 01:23 83 75/45 L 93 02/17/20 01:15 86 93 02/17/20 01:08 91 H 91/52 L 90 02/17/20 01:00 82 96 02/17/20 00:53 81 71/46 L 95 02/17/20 00:45 81 96 02/17/20 00:38 81 73/46 L 96 02/17/20 00:30 82 96 02/17/20 00:23 82 79/48 L 96 02/17/20 00:15 83 96 02/17/20 00:08 89 84/49 L 94 02/17/20 00:00 88 97 02/16/20 23:53 92 H 85/51 L 95 02/16/20 23:45 86 98 02/16/20 23:44 98 02/16/20 23:38 86 82/51 L 98 02/16/20 23:30 85 99 02/16/20 23:23 86 81/50 L 98 02/16/20 23:15 89 97 02/16/20 23:08 87 82/52 L 98 02/16/20 23:00 87 98 02/16/20 22:53 87 82/48 L 99 02/16/20 22:45 88 98 02/16/20 22:40 86 18 100 02/16/20 22:38 87 89/51 L 100 02/16/20 22:30 97 H 96 02/16/20 22:23 85 87/50 L 100 02/16/20 22:20 85 99 02/16/20 22:10 85 100 02/16/20 22:00 87 100 02/16/20 21:54 92 H 100 02/16/20 21:53 93 H 101/52 L 99 02/16/20 21:50 92 H 100 02/16/20 21:40 82 100 02/16/20 21:38 85 72/43 L 100 02/16/20 21:30 88 99 02/16/20 21:20 89 99 02/16/20 21:13 89 91/50 L 99 02/16/20 21:10 83 100 02/16/20 21:00 85 100 Laboratory Results WBC 14, Hb 9, Hct 26, Platelets 144. Na 139, K 3.5, BUN 19, Cr 1.35. Lactate 3.6. Diagnostic Findings CT prior to surgery: 1. Evaluation degraded by lack of intravenous and oral contrast as well as positioning of the arms over the upper abdomen. Allowing for this, findings highly concerning for a high-grade partial or complete small bowel obstruction. This may be due to interval development of a herniated short segment of small bowel within the ventral hernia. Surgical consultation is recommended. 2. 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 3. Decreased volume ascites. No current evidence of portal hypertension. 4. Chronic bladder outlet obstruction may be present.
[2020-02-17] MEDS: fentaNYL DRIP 1,250 MCG/250 ML BAG IV SCH ×2 (08:57→22:13)
--- NOTE | 2020-02-17 09:15 | Surgery Progress Note ---
Date of Service February 17, 2020 Assessment & Plan (1) Incarcerated ventral hernia: pod 1 from open release sbo/repair of incarcerated ventral hernia critially ill with multiple serious comorbidities agree prob intravascularly volume depleted nothing to add from surgery perspective at this time.... Subjective currently undergoing central line placement by ICU team. unable to enter room Physical Exam Physical Exam: still intubated mild hypotension on pressors urine OP borderline Results & Data Vital Signs (Past 12 Hours) Vital Signs Pulse Resp BP Pulse Ox 02/17/20 07:15 76 96 02/17/20 07:09 76 95/53 L 97 02/17/20 07:00 84 97 02/17/20 06:54 74 94/60 L 99 02/17/20 06:52 74 16 99 02/17/20 06:45 77 99 02/17/20 06:39 81 96/71 L 100 02/17/20 06:30 75 98 02/17/20 06:24 77 103/59 L 99 02/17/20 06:15 74 99 02/17/20 06:09 76 93/57 L 99 02/17/20 06:00 77 98 02/17/20 05:54 78 107/60 98 02/17/20 05:45 73 99 02/17/20 05:39 74 86/52 L 98 02/17/20 05:30 74 98 02/17/20 05:24 74 91/51 L 98 02/17/20 05:15 75 98 02/17/20 05:09 74 90/53 L 98 02/17/20 05:00 76 98 02/17/20 04:58 77 20 100 02/17/20 04:53 78 94/52 L 100 02/17/20 04:45 75 100 02/17/20 04:39 79 87/54 L 100 02/17/20 04:30 79 100 02/17/20 04:23 83 98/55 L 100 02/17/20 04:15 93 H 100 02/17/20 04:09 87 97/57 L 100 02/17/20 04:00 97 H 87 L 02/17/20 03:54 93 H 113/61 89 L 02/17/20 03:45 98 H 82 L 02/17/20 03:39 93 H 104/64 86 L 02/17/20 03:30 77 96 02/17/20 03:23 77 87/56 L 95 02/17/20 03:15 77 94 02/17/20 03:08 77 90/56 L 93 02/17/20 03:00 85 90 02/17/20 02:53 81 94/52 L 90 02/17/20 02:45 85 96 02/17/20 02:38 77 83/48 L 97 02/17/20 02:30 81 96 02/17/20 02:23 81 76/48 L 96 02/17/20 02:15 79 95 02/17/20 02:08 80 76/47 L 95 02/17/20 02:00 84 94 02/17/20 01:54 79 18 95 02/17/20 01:53 85 89/54 L 96 02/17/20 01:45 78 95 02/17/20 01:42 81 73/46 L 95 02/17/20 01:38 89 73/46 L 94 02/17/20 01:30 82 94 02/17/20 01:23 83 75/45 L 93 02/17/20 01:15 86 93 02/17/20 01:08 91 H 91/52 L 90 02/17/20 01:00 82 96 02/17/20 00:53 81 71/46 L 95 02/17/20 00:45 81 96 02/17/20 00:38 81 73/46 L 96 02/17/20 00:30 82 96 02/17/20 00:23 82 79/48 L 96 02/17/20 00:15 83 96 02/17/20 00:08 89 84/49 L 94 02/17/20 00:00 88 97 02/16/20 23:53 92 H 85/51 L 95 02/16/20 23:45 86 98 02/16/20 23:44 98 02/16/20 23:38 86 82/51 L 98 02/16/20 23:30 85 99 02/16/20 23:23 86 81/50 L 98 02/16/20 23:15 89 97 02/16/20 23:08 87 82/52 L 98 02/16/20 23:00 87 98 02/16/20 22:53 87 82/48 L 99 02/16/20 22:45 88 98 04/22/20 22:40 86 18 100 02/16/20 22:38 87 89/51 L 100 02/16/20 22:30 97 H 96 02/16/20 22:23 85 87/50 L 100 02/16/20 22:20 85 99 02/16/20 22:10 85 100 02/16/20 22:00 87 100 02/16/20 21:54 92 H 100 02/16/20 21:53 93 H 101/52 L 99 02/16/20 21:50 92 H 100 02/16/20 21:40 82 100 02/16/20 21:38 85 72/43 L 100 02/16/20 21:30 88 99 02/16/20 21:20 89 99 02/16/20 21:13 89 91/50 L 99 PG Care Time/CCT Total # of Minutes Spent Total Time Spent with Patient: Total time spent is greater than 50% in coordina tion of care (as documented) at patient's floor/unit and/or counseling patient: Coding Level of Care Code None Diagnoses Incarcerated ventral hernia K43.6
--- NOTE | 2020-02-17 10:09 | Procedure Note ---
Procedure Note Date of Service February 17, 2020 Note INTERNAL JUGULAR CENTRAL LINE PROCEDURE NOTE: Procedure: Internal Jugular Central Line Placement Indication: Central Drug Administration, Poor Venous Access, Multiple Lab Draws Necessary, etc. Anesthesia: Continuous fentanyl drip/8 mL lidocaine 1% Consent was signed and placed on the chart prior to procedure. Indication, risks, and benefits were explained at length. A time-out was completed verifying correct patient, procedure, site, positioning, and implants(s) or special equipment if applicable. Patients right neck was cleansed and draped in the typical sterile fashion using Chloraprep. The Internal Jugular Vein and Carotid Artery were identified using ultrasound. The superficial tissue was anesthetized using 8 mL of 1% lidocaine without epinephrine under direct visualization with the ultrasound. After adequate anest hetization was achieved, the Internal Jugular vein was cannulated under direct ultrasound guidance using an introducer needle on a syringe. Good venous blood return was maintained prior to removal of syringe from introducer needle. Using Seldinger Technique, a guide wire was advanced through the introducer needle without resistance. The introducer needle was removed and ultrasound images were obtained of the guide wire within the Internal Jugular Vein and saved to the patients medical record. A small incision was made in penetrating fashion at the guide wire insertion site utilizing an 11 blade scalpel. The dilator was advanced to the vessel without resistance. The dilator was exchanged for the triple lumen catheter which was advanced into the vessel without resistance. The guide wire was removed intact from the catheter without issue. Claves were placed on each catheter tip with confirmation of good blood flow from each lumen. Each port was easily flushed with sterile saline. The catheter was placed at 15 cm [address] in place. BioPatch was applied to the catheter and a sterile Tegaderm dressing was applied over the catheter with careful attention to sterility. Patient tolerated procedure well. No immediate complications were met. Post procedure x-ray was completed, placement was appropriate and no pneumothorax was noted. Images obtained are saved for permanent record Procedural Ultrasound Guidance used Images obtained are saved for permanent record. Coding CPT Codes Tubes, Drains, and Vasc Access - Tubes, Drains, and Vasc Access: [id number] Ultrasound Guidance For Vascular ([id number]) Tubes, Drains, and Vasc Access - Tubes, Drains, and Vasc Access: [id number] Place catheter in vein superior or inferior vena cava ([id number]) [place] Procedure Codes (Charges) Tubes, Drains, and Vasc Access Procedure 1: Tubes, Drains, and Vasc Access: [id number] Ultrasound Guidance For Vascular Procedure 2: Tubes, Drains, and Vasc Access: [id number] Place catheter in vein superior or inferior vena cava
[2020-02-17 10:14] LABS: iSTAT Arterial Blood Gas HCO3 17 meg/L (19-24); iSTAT Arterial Blood Gas pCO2 24 mmHg (35-46); iSTAT Arterial Blood Gas pH 7.47 (7.35-7.45); iSTAT Arterial Blood Gas pO2 57 mmHg (80-95); iSTAT Carbon Dioxide 18 mmol/L (24-31); iSTAT FiO2 60 %; iSTAT Site Art Line
--- NOTE | 2020-02-17 10:34 | Surgery Progress Note ---
Date of Service February 17, 2020 Assessment & Plan (1) Incarcerated ventral hernia: pod 1 from open release sbo/repair of incarcerated ventral hernia critially ill with multiple serious comorbidities agree prob intravascularly volume depleted nothing to add from surgery perspective at this time.... Subjective follow-up visit Physical Exam Gastrointestinal (Abdomen): Inspection/Auscultation: + abdominal surgical incision (clean, dry); abdomen not distended Percussion/Palpation: abdomen soft OG output <100cc Results & Data Vital Signs (Past 12 Hours) Vital Signs Pulse Resp BP Pulse Ox 02/17/20 07:15 76 96 02/17/20 07:09 76 95/53 L 97 02/17/20 07:00 84 97 02/17/20 06:54 74 94/60 L 99 02/17/20 06:52 74 16 99 02/17/20 06:45 77 99 02/17/20 06:39 81 96/71 L 100 02/17/20 06:30 75 98 02/17/20 06:24 77 103/59 L 99 02/17/20 06:15 74 99 02/17/20 06:09 76 93/57 L 99 02/17/20 06:00 77 98 02/17/20 05:54 78 107/60 98 02/17/20 05:45 73 99 02/17/20 05:39 74 86/52 L 98 02/17/20 05:30 74 98 02/17/20 05:24 74 91/51 L 98 02/17/20 05:15 75 98 02/17/20 05:09 74 90/53 L 98 02/17/20 05:00 76 98 02/17/20 04:58 77 20 100 02/17/20 04:53 78 94/52 L 100 02/17/20 04:45 75 100 02/17/20 04:39 79 87/54 L 100 02/17/20 04:30 79 100 02/17/20 04:23 83 98/55 L 100 02/17/20 04:15 93 H 100 02/17/20 04:09 87 97/57 L 100 02/17/20 04:00 97 H 87 L 02/17/20 03:54 93 H 113/61 89 L 02/17/20 03:45 98 H 82 L 02/17/20 03:39 93 H 104/64 86 L 04/23/20 03:30 77 96 02/17/20 03:23 77 87/56 L 95 02/17/20 03:15 77 94 02/17/20 03:08 77 90/56 L 93 02/17/20 03:00 85 90 02/17/20 02:53 81 94/52 L 90 02/17/20 02:45 85 96 02/17/20 02:38 77 83/48 L 97 02/17/20 02:30 81 96 02/17/20 02:23 81 76/48 L 96 02/17/20 02:15 79 95 02/17/20 02:08 80 76/47 L 95 02/17/20 02:00 84 94 02/17/20 01:54 79 18 95 02/17/20 01:53 85 89/54 L 96 02/17/20 01:45 78 95 02/17/20 01:42 81 73/46 L 95 02/17/20 01:38 89 73/46 L 94 02/17/20 01:30 82 94 02/17/20 01:23 83 75/45 L 93 02/17/20 01:15 86 93 02/17/20 01:08 91 H 91/52 L 90 02/17/20 01:00 82 96 02/17/20 00:53 81 71/46 L 95 02/17/20 00:45 81 96 02/17/20 00:38 81 73/46 L 96 02/17/20 00:30 82 96 02/17/20 00:23 82 79/48 L 96 02/17/20 00:15 83 96 02/17/20 00:08 89 84/49 L 94 02/17/20 00:00 88 97 02/16/20 23:53 92 H 85/51 L 95 02/16/20 23:45 86 98 02/16/20 23:44 98 02/16/20 23:38 86 82/51 L 98 02/16/20 23:30 85 99 02/16/20 23:23 86 81/50 L 98 02/16/20 23:15 89 97 02/16/20 23:08 87 82/52 L 98 02/16/20 23:00 87 98 02/16/20 22:53 87 82/48 L 99 02/16/20 22:45 88 98 02/16/20 22:40 86 18 100 02/16/20 22:38 87 89/51 L 100 PG Care Time/CCT Total # of Minutes Spent Total Time Spent with Patient: Total time spent is greater than 50% in coordination of care (as documented) at patient's floor/unit and/or counseling patient: Coding Level of Care Code None Diagnoses Incarcerated ventral hernia K43.6
--- NOTE | 2020-02-17 10:39 | XRay Report ---
XR chest 1V not portable CLINICAL HISTORY: s/p cvl tube position COMPARISON STUDY: 02/17/2020 4:40 AM FINDINGS: Endotracheal tube is 3 cm above the gareth. Interval placement of a central catheter in the superior vena cava. No evidence for pneumothorax. There is a nasogastric tube within the stomach. Parenchymal findings are unchanged from the prior exam. IMPRESSION: Central catheter placed in the superior vena cava. No evidence for pneumothorax. Study i s otherwise unchanged. ACT 112: Negative or not required by law. The above report was generated using voice recognition software. It may contain grammatical, syntax or spelling errors. Electronically signed by: Cuong Israel M.D. 02/17/2020 10:38 AM
[2020-02-17] MEDS: POTASSIUM CHLORIDE / WTR 20 MEQ/100 ML PLCT IV SCH ×2 (10:52→12:43)
--- NOTE | 2020-02-17 11:08 | Cardiology Progress Note ---
Date of Service February 17, 2020 Assessment & Plan (1) NSTEMI (non-ST elevated myocardial infarction): Most recent EKG performed this morning at 657 reveals sinus rhythm at 82 bpm, possible age-indeterminate inferior infarction pattern with inferior Q waves, diffuse T wave flattening without significant ST elevation or depression. His preoperative echocardiogram performed yesterday in emergency department was more suggestive of a stress-induced cardiomyopathy with left ventricular apical ballooning pattern and acute intracoronary thrombosis pattern. Troponin was 7.5 at 418 this morning, and 6.2 most recently. This is also more compatible with a stress-induced cardiomyopathy rather than an ST segment elevation myocardial infarction. I have requested a repeat echocardiogram for reassessment of his LV function today. He is not a candidate for antiplatelet therapy at present due to bleeding concerns. Continue supportive care. Future concerns include dobutamine infusion for cardiac support, however, I would be concerned about his arrhythmia risk. Subjective Patient remains sedated on the ventilator. Since he was reassessed by the undersigned postoperatively last evening, he became hypotensive, he is now on norepinephrine plus vasopressin. Chest x-ray reveals bilateral infiltrates suggestive of possible aspiration pneumonia. Review of Systems Review of Systems: Unobtainable due to endotracheal tube and Unobtainable due to reduced consciousness Physical Exam Physical Exam: Temp Pulse Resp BP Pulse Ox 36.2 C L 82 16 109/62 91 02/16/20 17:06 02/17/20 10:30 02/17/20 06:52 02/17/20 10:24 02/17/20 10:30 Constitutional: WD/WN, vitals as above Respiratory: Decreased breath sounds at the bases Cardiovascular: RRR, no murmur, no edema Vessels: no JVD Extremities: no edema Neurologic: sedated Results & Data Vital Signs (Past 12 Hours) Vital Signs Pulse Resp BP Pulse Ox 02/17/20 10:30 82 91 02/17/20 10:24 82 109/62 94 02/17/20 10:15 80 95 02/17/20 10:09 79 107/55 L 95 02/17/20 10:00 82 94 02/17/20 09:54 83 104/62 95 02/17/20 09:45 85 91 02/17/20 09:39 89 111/68 92 02/17/20 09:30 83 93 02/17/20 09:24 85 101/65 94 02/17/20 09:15 84 99 02/17/20 09:09 85 113/64 98 02/17/20 09:00 88 99 02/17/20 08:54 86 106/67 100 02/17/20 08:45 95 H 80 L 02/17/20 08:39 85 104/57 L 94 02/17/20 08:30 78 97 02/17/20 08:24 81 96/62 L 96 02/17/20 08:15 81 94 02/17/20 08:09 77 97/55 L 95 02/17/20 08:00 76 96 02/17/20 07:54 77 98/55 L 95 02/17/20 07:45 75 97 02/17/20 07:39 79 101/58 L 97 02/17/20 07:30 81 99 02/17/20 07:24 75 92/52 L 97 02/17/20 07:15 76 96 02/17/20 07:09 76 95/53 L 97 02/17/20 07:00 84 97 02/17/20 06:54 74 94/60 L 99 02/17/20 06:52 74 16 99 02/17/20 06:45 77 99 02/17/20 06:39 81 96/71 L 100 02/17/20 06:30 75 98 02/17/20 06:24 77 103/59 L 99 02/17/20 06:15 74 99 02/17/20 06:09 76 93/57 L 99 02/17/20 06:00 77 98 02/17/20 05:54 78 107/60 98 02/17/20 05:45 73 99 02/17/20 05:39 74 86/52 L 98 02/17/20 05:30 74 98 02/17/20 05:24 74 91/51 L 98 02/17/20 05:15 75 98 02/17/20 05:09 74 90/53 L 98 02/17/20 05:00 76 98 02/17/20 04:58 77 20 100 02/17/20 04:53 78 94/52 L 100 02/17/20 04:45 75 100 02/17/20 04:39 79 87/54 L 100 02/17/20 04:30 79 100 02/17/20 04:23 83 98/55 L 100 02/17/20 04:15 93 H 100 02/17/20 04:09 87 97/57 L 100 02/17/20 04:00 97 H 87 L 02/17/20 03:54 93 H 113/61 89 L 02/17/20 03:45 98 H 82 L 02/17/20 03:39 93 H 104/64 86 L 02/17/20 03:30 77 96 02/17/20 03:23 77 87/56 L 95 02/17/20 03:15 77 94 02/17/20 03:08 77 90/56 L 93 02/17/20 03:00 85 90 02/17/20 02:53 81 94/52 L 90 02/17/20 02:45 85 96 02/17/20 02:38 77 83/48 L 97 02/17/20 02:30 81 96 02/17/20 02:23 81 76/48 L 96 02/17/20 02:15 79 95 02/17/20 02:08 80 76/47 L 95 02/17/20 02:00 84 94 02/17/20 01:54 79 18 95 02/17/20 01:53 85 89/54 L 96 02/17/20 01:45 78 95 02/17/20 01:42 81 73/46 L 95 02/17/20 01:38 89 73/46 L 94 02/17/20 01:30 82 94 02/17/20 01:23 83 75/45 L 93 02/17/20 01:15 86 93 02/17/20 01:08 91 H 91/52 L 90 02/17/20 01:00 82 96 02/17/20 00:53 81 71/46 L 95 02/17/20 00:45 81 96 02/17/20 00:38 81 73/46 L 96 02/17/20 00:30 82 96 02/17/20 00:23 82 79/48 L 96 02/17/20 00:15 83 96 02/17/20 00:08 89 84/49 L 94 02/17/20 00:00 88 97 02/16/20 23:53 92 H 85/51 L 95 02/16/20 23:45 86 98 02/16/20 23:44 98 02/16/20 23:38 86 82/51 L 98 02/16/20 23:30 85 99 02/16/20 23:23 86 81/50 L 98 02/16/20 23:15 89 97 02/16/20 23:08 87 82/52 L 98
[2020-02-17] MEDS: MAGNESIUM SULFATE / D5W 1 GM/100 ML BAG IV SCH ×2 (11:16→12:11)
[2020-02-17 11:31] LABS: Hematocrit (blood only) 25.7 % (42-52); Hemoglobin 8.9 g/dL (14.0-18.0); Mean Corpuscular Hgb Conc 34.6 g/dL (32-36); Mean Corpuscular Volume 95.2 fL (80-100); Mean Platelet Volume 8.9 fL (7.4-10.4); Platelet Count 136 K/uL (130-400); RDW Coefficient of Variation 14.9 % (11.5-14.5); RDW Standard Deviation 51.4 fL (36.4-46.3); White Blood Count 15.15 K/uL (4.8-10.8)
[2020-02-17 11:51] LABS: Basophils # (auto) 0.06 K/uL (0-0.2); Basophils % (auto) 0.4 %; Eosinophils # (auto) 0.16 K/uL (0-0.5); Eosinophils % (auto) 1.1 %; Immature Granulocytes # (auto) 0.05 K/uL (0.00-0.02); Immature Granulocytes % (auto) 0.3 %; Lymphocytes # (auto) 0.82 K/uL (1.2-3.4); Lymphocytes % (auto) 5.4 %; Monocytes # (auto) 0.67 K/uL (0.11-0.59); Monocytes % (auto) 4.4 %; Neutrophils # (auto) 13.39 K/uL (1.4-6.5); Neutrophils % (auto) 88.4 %
--- NOTE | 2020-02-17 11:53 | Procedure Note ---
Procedure Note Date of Service February 17, 2020 Note PREOPERATIVE DIAGNOSIS: Acute respiratory failure with infiltrates POSTOPERATIVE DIAGNOSIS: Acute respiratory failure with infiltrates PROCEDURE PERFORMED: Flexible fiberoptic bronchoscopy with bronchoalveolar lavage COMPLICATIONS: None. INDICATION: Acute hypoxemic respiratory failure. Rule out infectious etiology and alveolar hemorrhage. PROCEDURE: Patient was intubated and sedated during the procedure. Consent was obtained from the patient's sister. A timeout was performed prior to the procedure. Bronchoscope was inserted via the ET tube. 4 mL of 2% buffered lidocaine was instilled onto the gareth through the bronchoscope. The ET tube was approximately 4 cm below the gareth. ET tube with no obvious encrusted mucus. Trachea appeared sharp. Sequential investigation on the right upper lobe, right middle lobe and right lower lobe were performed. No obvious endobronchial lesions. Scant secretions. Sequential investigation of the left upper lobe and left lower lobe were also performed with no obvious lesions. Secretions were scant. I performed bronchoalveolar lavage of the right middle lobe medial segment. We did 3 sequential aliquots with 40 mL (a total of 120 mL) of saline and aspirated a total of 60 mL back. Fluid appeared mildly orange-tinged. No obvious alveolar hemorrhage are seen. The scope was withdrawn with no complications. Patient tolerated procedure well. Bronchoalveolar lavage samples were sent for cell count, Gram stain and bacterial culture, AFB culture and smear, fungal culture and smear and cytology. Recommendations: Follow cultures, cell count and cytology. Continue vent support. Coding CPT Codes Pulmonary/Thoracic - Pulmonary and Thoracic: 45804 Dx bronchoscopy/BAL ([id number]) [facility] [place] Procedure Codes (Charges) Pulmonary/Thoracic Procedure 1: Pulmonary and Thoracic: 94989 Dx bronchoscopy/BAL
[2020-02-17 13:43] LABS: Eosinophil Body Fluid Man 3 %; Fluid Mono/Macrophage 13 %; Lymphocyte Body Fluid Man 4 %; Neutrophil Body Fluid Man 80 %
[2020-02-17] MEDS: LACTULOSE 200 GM, WATER, STERILE IRRIG 700 ML, BARCODE IDENTIFIER 1 EA PR SCH ×2 (14:28→15:58)
--- NOTE | 2020-02-17 14:28 | Electrocardiogram Report ---
Test Reason : Blood Pressure : / mmHG Vent. Rate : 082 BPM Atrial Rate : 082 BPM P-R Int : 156 ms QRS Dur : 070 ms QT Int : 480 ms P-R-T Axes : 050 -20 000 degrees QTc Int : 560 ms Normal sinus rhythm Low voltage QRS Inferior infarct , age undetermined Abnormal ECG When compared with ECG of 16-FEB-2020 14:35, Nonspecific T wave abnormality now evident in Inferior leads Nonspecific T wave abnormality now evident in Lateral leads QT has lengthened Confirmed by Navneet Ortega ([id number]) on 02/17/2020 2:27:46 PM Referred By: REFERRED SELF Confirmed By:Anup Ortgea
--- NOTE | 2020-02-17 14:28 | Electrocardiogram Report ---
Test Reason : Blood Pressure : / mmHG Vent. Rate : 091 BPM Atrial Rate : 091 BPM P-R Int : 154 ms QRS Dur : 068 ms QT Int : 430 ms P-R-T Axes : 062 -09 062 degrees QTc Int : 528 ms Sinus rhythm with Premature supraventricular complexes Low voltage QRS Possible Inferior infarct (cited on or before 16-FEB-2020) Prolonged QT Abnormal ECG When compared with ECG of 16-FEB-2020 18:05, (unconfirmed) QT has lengthened Confirmed by Navneet Ortega ([id number]) on 02/17/2020 2:28:15 PM Referred By: REFERRED SELF Confirmed By:Anup Ortega
--- NOTE | 2020-02-17 14:38 | Electrocardiogram Report ---
Test Reason : Blood Pressure : / mmHG Vent. Rate : 092 BPM Atrial Rate : 092 BPM P-R Int : 186 ms QRS Dur : 062 ms QT Int : 358 ms P-R-T Axes : 059 -09 052 degrees QTc Int : 442 ms Poor data quality, interpretation may be adversely affected Sinus rhythm with Premature atrial complexes Low voltage QRS Possible Inferior infarct , age undetermined Abnormal ECG Confirmed by Navneet Ortega ([id number]) on 02/17/2020 2:38:18 PM Referred By: REFERRED SELF Confirmed By:Anup Ortega
--- NOTE | 2020-02-17 14:39 | Electrocardiogram Report ---
Test Reason : Blood Pressure : / mmHG Vent. Rate : 090 BPM Atrial Rate : 090 BPM P-R Int : 172 ms QRS Dur : 084 ms QT Int : 208 ms P-R-T Axes : 066 -07 087 degrees QTc Int : 254 ms Sinus rhythm with occasional Premature ventricular complexes and Fusion complexes Low voltage QRS Nonspecific ST and T wave abnormality Abnormal ECG When compared with ECG of 16-FEB-2020 14:35, Fusion complexes are now Present Premature ventricular complexes are now Present T wave inversion now evident in Anterior leads QT has shortened Confirmed by Navneet Ortega ([id number]) on 02/17/2020 2:38:48 PM Referred By: REFERRED SELF Confirmed By:Anup Ortega
[2020-02-17] MEDS: NOREPINEPHRINE BIT INJ 8 MG in DEXTROSE 5% 500 ML IV SCH (15:58)
--- NOTE | 2020-02-17 18:19 | Hospitalist Progress Note ---
Date of Service February 17, 2020 Assessment & Plan (1) Incarcerated ventral hernia: (2) SBO (small bowel obstruction): Present on admission with altered mental status abdominal distention associated with vomiting CT abd/pelvis showed highly concerning for a high-grade partial or complete sma ll bowel obstruction. This may be due to interval development of a herniated short segment of small bowel within the ventral hernia. KUB showed small bowel obstruction. Surgery on board S/P day#1 Open Ventral Hernia Repair and release of small bowel obstruction by dr. Shafer Intubated on vent support On IV fentanyl drip Continue PPI drip and IV Zosyn (3) Acute hepatic encephalopathy: CT head showed no acute intracranial abnormality Ammonia level on admission 90 Starting on Lactulose per rectum Sedated with fentanyl drip currently and required vent support (4) NSTEMI (non-ST elevated myocardial infarction): Troponin on admission wnl, that peaked to 7.5, now trending down to 4 EKG showed no acute ischemia ECHO done showed hypokinesis to akinesis with sparing of the basal segment with EF 35-40 % Finding suggestive of a stress-induced cardiomyopathy with left ventricular apical ballooning pattern rather than an ST segment elevation myocardial infarction Cardiology on board No antiplatelet therapy due to GI bleed Continue monitor closely (5) Acute upper GI bleed: Noted coffee ground emesis in ER. Hgb on admission 12.9 Hgb 8.9 today GI on board On Protonix drip and octreotide (6) Aspiration pneumonia: CXR showed diffuse bilateral parenchymal infiltrative change Elevated lactic acid, WBC and procalcitonin Intubated on vent support Continue IV Zosyn (7) Acute kidney injury superimposed on CKD: BUN: 19, Cr: 1.6. Recent baseline Cr~1.1, was up to 1.3 in 2019 Monitor renal functions (8) Cirrhosis: H/O Cirrhosis with ascites. S/P TIPS in 2019. Requires recurrent paracentesis. (9) Paroxysmal A-fib: Not on anticoagulation secondary to recurrent paracentesis. Not on beta- clau secondary to bradycardia, hypotension Admission and Anticipated Discharge Date Admission Date: February 16, 2020 Subjective Pt was seen and examined Sedated with fentanyl drip on vent support Continue to require pressors Physical Exam Physical Exam: General- on mechanical vent support Head- atraumatic Eyes- PERRL, EOMI, ENT- intubated Neck- supple, no JVD Lungs- no wheezing Heart- regular rhythm; no murmur Abdomen- Hypoactive bowel sound Extremities- no calf tenderness Neuro- on fentanyl drip sedated Skin- warm & dry Results & Data Results & Data ([facility]) Vital Signs (Past 12 Hours) Vital Signs Pulse Resp BP Pulse Ox 02/17/20 17:58 74 18 99 02/17/20 17:30 82 100 02/17/20 17:24 94 H 110/66 98 02/17/20 17:15 78 100 02/17/20 17:09 79 111/59 L 99 02/17/20 17:00 78 98 02/17/20 16:54 78 97/61 L 97 02/17/20 16:45 71 99 02/17/20 16:39 75 102/67 100 02/17/20 16:30 80 100 02/17/20 16:25 86 101/60 98 02/17/20 16:15 67 100 02/17/20 16:09 66 102/59 L 100 02/17/20 16:00 68 100 02/17/20 15:54 66 100/58 L 100 02/17/20 15:45 68 100 02/17/20 15:39 65 101/54 L 100 02/17/20 15:30 68 100 02/17/20 15:24 67 97/55 L 100 02/17/20 15:15 68 100 02/17/20 15:09 67 102/58 L 100 02/17/20 15:00 67 100 02/17/20 14:54 65 100/54 L 100 02/17/20 14:45 67 100 02/17/20 14:39 65 95/54 L 100 02/17/20 14:30 67 100 02/17/20 14:24 67 94/54 L 100 02/17/20 14:15 68 100 02/17/20 14:09 68 98/55 L 100 02/17/20 14:00 71 15 100 02/17/20 13:54 67 95/54 L 100 02/17/20 13:45 75 100 02/17/20 13:39 75 109/55 L 99 02/17/20 13:30 66 100 02/17/20 13:24 69 100/61 100 02/17/20 13:15 67 100 02/17/20 13:09 68 97/55 L 100 02/17/20 13:00 67 100 02/17/20 12:54 67 91/54 L 100 02/17/20 12:45 67 100 02/17/20 12:39 71 101/61 99 02/17/20 12:30 69 100 02/17/20 12:24 68 96/57 L 100 02/17/20 12:15 69 100 02/17/20 12:09 69 94/57 L 02/17/20 12:00 69 100 02/17/20 11:54 70 96/57 L 100 02/17/20 11:45 72 100 02/17/20 11:39 76 103/62 100 02/17/20 11:30 75 100 02/17/20 11:24 77 101/62 100 02/17/20 11:15 77 99 02/17/20 11:09 77 106/57 L 98 02/17/20 11:00 78 96 02/17/20 10:54 80 102/60 96 02/17/20 10:45 80 95 02/17/20 10:44 81 17 93 02/17/20 10:39 83 104/55 L 93 02/17/20 10:30 82 91 02/17/20 10:24 82 109/62 94 02/17/20 10:15 80 95 02/17/20 10:09 79 107/55 L 95 02/17/20 10:00 82 94 02/17/20 09:54 83 104/62 95 02/17/20 09:45 85 91 02/17/20 09:39 89 111/68 92 02/17/20 09:30 83 93 02/17/20 09:24 85 101/65 94 02/17/20 09:15 84 99 02/17/20 09:09 85 113/64 98 02/17/20 09:00 88 99 02/17/20 08:54 86 106/67 100 02/17/20 08:45 95 H 80 L 02/17/20 08:39 85 104/57 L 94 02/17/20 08:30 78 97 02/17/20 08:24 81 96/62 L 96 02/17/20 08:15 81 94 02/17/20 08:09 77 97/55 L 95 02/17/20 08:00 76 96 02/17/20 07:54 77 98/55 L 95 02/17/20 07:45 75 97 02/17/20 07:39 79 101/58 L 97 02/17/20 07:30 81 99 02/17/20 07:24 75 92/52 L 97 02/17/20 07:15 76 96 02/17/20 07:09 76 95/53 L 97 02/17/20 07:00 84 97 02/17/20 06:54 74 94/60 L 99 02/17/20 06:52 74 16 99 02/17/20 06:45 77 99 02/17/20 06:39 81 96/71 L 100 02/17/20 06:30 75 98 02/17/20 06:24 77 103/59 L 99
[2020-02-17] MEDS ORDERED: ACETAMINOPHEN 65 ML IV ONE (20:45)
[2020-02-18] MEDS: PIPERACILLIN/TAZOBACTAM 4.5 GM in DEXTROSE 5% 100 ML IV SCH ×3 (00:25→19:23)
[2020-02-18] MEDS: LACTULOSE 200 GM, WATER, STERILE IRRIG 700 ML, BARCODE IDENTIFIER 1 EA PR SCH ×3 (00:25→21:46)
[2020-02-18] MEDS: fentaNYL DRIP 1,250 MCG/250 ML BAG IV SCH ×3 (00:26→12:34)
[2020-02-18 00:28] LABS: iSTAT Arterial Blood Gas HCO3 18 meg/L (19-24); iSTAT Arterial Blood Gas pCO2 29 mmHg (35-46); iSTAT Arterial Blood Gas pO2 73 mmHg (80-95); iSTAT Carbon Dioxide 19 mmol/L (24-31); iSTAT Site Art Line
[2020-02-18] MEDS: VASOPRESSIN 20 UNITS in 0.9 % SODIUM CHLORIDE 100 ML IV SCH ×3 (03:26→19:23)
[2020-02-18] MEDS: PANTOprazole 40 MG in DEXTROSE 5% 100 ML IV SCH ×2 (03:26→08:33)
[2020-02-18 04:30] LABS: Hematocrit (blood only) 26.9 % (42-52); Mean Corpuscular Hemoglobin 32.6 pg (25-34); Mean Corpuscular Hgb Conc 33.5 g/dL (32-36); Mean Corpuscular Volume 97.5 fL (80-100); Mean Platelet Volume 9.5 fL (7.4-10.4); Platelet Count 162 K/uL (130-400); RDW Coefficient of Variation 14.9 % (11.5-14.5); RDW Standard Deviation 52.8 fL (36.4-46.3); Red Blood Count 2.76 M/uL (4.7-6.1); White Blood Count 15.68 K/uL (4.8-10.8)
[2020-02-18 04:39] LABS: INR 1.4 (0.9-1.1)
[2020-02-18 04:50] LABS: Albumin Level 2.8 gm/dl (3.4-5.0); BUN Creatinine Ratio 18.8 (10-20); Bilirubin Direct 0.6 mg/dl (0-0.2); Calcium 7.6 mg/dl (8.5-10.1); Creatinine Clr Calc Pharmacy 43.3 ml/min; Est GFR (African American) 64.3; Est GFR (Non-African American) 55.5; Magnesium 2.2 mg/dl (1.8-2.4)
[2020-02-18 04:52] LABS: Phosphorus 3.2 mg/dl (2.5-4.9); Total Protein 5.8 gm/dl (6.4-8.2)
[2020-02-18 05:10] LABS: Basophils # (auto) 0.03 K/uL (0-0.2); Basophils % (auto) 0.2 %; Dohle Bodies 1+; Eosinophils # (auto) 0.19 K/uL (0-0.5); Eosinophils % (auto) 1.2 %; Immature Granulocytes # (auto) 0.06 K/uL (0.00-0.02); Immature Granulocytes % (auto) 0.4 %; Lymphocytes # (auto) 1.04 K/uL (1.2-3.4); Lymphocytes % (auto) 6.6 %; Monocytes % (auto) 5.1 %; Neutrophils # (auto) 13.56 K/uL (1.4-6.5); Neutrophils % (auto) 86.5 %
[2020-02-18 05:31] LABS: iSTAT Arterial Blood Gas HCO3 18 meg/L (19-24); iSTAT Arterial Blood Gas pCO2 35 mmHg (35-46); iSTAT Arterial Blood Gas pH 7.32 (7.35-7.45); iSTAT Arterial Blood Gas pO2 81 mmHg (80-95); iSTAT Carbon Dioxide 19 mmol/L (24-31); iSTAT Site Art Line
[2020-02-18] MEDS: NOREPINEPHRINE BIT INJ 8 MG in DEXTROSE 5% 500 ML IV SCH (07:23)
--- NOTE | 2020-02-18 08:02 | XRay Report ---
XR chest 1V portable CLINICAL HISTORY: 80 years-old Male presenting with f/u. TECHNIQUE: Portable upright AP view of the chest was obtained. COMPARISON: 02/17/2020. FINDINGS: Endotracheal tube terminates approximately 3 cm from the gareth. Right internal jugular central venou s catheter terminates at the superior cavoatrial junction. Nasogastric tube descends below the diaphr agm, side hole in the region of the gastroesophageal junction or just within the gastric lumen. Numer ous overlying external leads and support devices degraded image quality. Atherosclerosis of the aortic arch. Cardiac silhouette top normal in size. Redemonstration of extensi ve patchy bilateral hazy and more dense opacities most prominently in the right upper lung and right lung base as well as centrally in the left lung. No large effusion or pneumothorax. Degenerative tracy ges of the thoracic spine. Post traumatic deformity of the right clavicle. Upper abdomen normal. IMPRESSION: 1. Appropriately positioned lines and tubes; sidehole of the nasogastric tube may be at the GE junct ion or just within the gastric lumen. 2. Stable appearance of extensive bilateral dense pulmonary infiltrates. This could represent multif ocal pneumonia, diffuse alveolar damage, or severe edema. ACT 112: Negative or not required by law. Electronically signed by: Naresh Bourne M.D. 02/18/2020 8:00 AM
--- NOTE | 2020-02-18 08:23 | Surgery Progress Note ---
Date of Service February 18, 2020 Assessment & Plan (1) Incarcerated ventral hernia: pod 2 doing reasonable from surgery standpoint. obvious goal is wean pressors and vent when tolerated nothing to add surgically. Dr. Mtz educational aide for weekend. Subjective pt sedated on vent. Physical Exam Physical Exam: sedated on vent. vitals reasonable but on 2 pressors. Fi02 40% wound looks good. expected swelling. some seroma (expected with his known ascites). no sign of infection Results & Data Vital Signs (Past 12 Hours) Vital Signs Pulse Resp BP Pulse Ox 02/18/20 07:15 88 14 97 02/18/20 06:00 68 97 02/18/20 05:55 69 101/57 L 97 02/18/20 05:40 67 98/60 L 98 02/18/20 05:25 68 15 103/60 99 02/18/20 05:10 75 103/66 95 02/18/20 05:00 70 96 02/18/20 04:55 72 107/56 L 94 02/18/20 04:40 72 113/60 95 02/18/20 04:25 77 116/68 94 02/18/20 04:10 71 104/64 95 02/18/20 04:00 73 104/64 97 02/18/20 02:00 58 L 99 02/18/20 01:55 60 93/55 L 99 02/18/20 01:54 57 L 15 97 02/18/20 01:40 61 95/54 L 98 02/18/20 01:25 61 95/56 L 97 02/18/20 01:10 60 96/53 L 97 02/18/20 01:00 59 L 96 02/18/20 00:55 59 L 93/56 L 97 02/18/20 00:40 60 94/57 L 96 02/18/20 00:25 70 96/56 L 97 02/18/20 00:10 65 99/56 L 95 02/18/20 00:00 62 105/52 L 95 02/17/20 23:55 68 97/55 L 91 02/17/20 23:40 63 92/52 L 95 02/17/20 23:30 59 L 96 02/17/20 23:25 60 87/52 L 95 02/17/20 23:15 60 96 02/17/20 23:10 63 91/55 L 97 02/17/20 23:07 62 15 97 02/17/20 23:00 60 97 02/17/20 22:55 62 92/54 L 96 02/17/20 22:45 64 96 02/17/20 22:40 65 89/54 L 96 02/17/20 22:30 65 96 02/17/20 22:25 69 94/59 L 95 02/17/20 22:23 61 95/54 L 96 02/17/20 22:15 60 96 02/17/20 22:10 61 89/50 L 96 02/17/20 22:00 64 96 02/17/20 21:55 65 92/54 L 96 02/17/20 21:45 65 96 02/17/20 21:40 67 101/54 L 97 02/17/20 21:30 72 98 02/17/20 21:25 75 107/57 L 98 02/17/20 21:15 69 100 02/17/20 21:10 70 100/57 L 99 02/17/20 21:00 69 99 02/17/20 20:55 69 100/56 L 99 02/17/20 20:45 69 99 02/17/20 20:40 69 96/56 L 99 02/17/20 20:32 72 16 98 02/17/20 20:30 69 100 02/17/20 20:25 75 106/60 99 PG Care Time/CCT Total # of Minutes Spent Total Time Spent with Patient: Total time spent is greater than 50% in coordination of care (as documented) at patient's floor/unit and/or counseling patient: Coding Level of Care Code None Diagnoses Incarcerated ventral hernia K43.6
[2020-02-18] MEDS ORDERED: FUROSEMIDE 40 MG in SYRINGE 0 ML IV ONE ×2 (08:45→14:15)
--- NOTE | 2020-02-18 09:24 | Critical Care Progress Note ---
Date of Service February 18, 2020 Assessment & Plan (1) S/P admission to ICU (intensive care unit): Patient is currently intubated and sedated with fentanyl. He seems a bit more responsive today as he is spontaneously moving his extremities. We will continue to wean his fentanyl. We are weaning his ventilator and he is currently on 35% FiO2 and 8 of PEEP. His chest x-ray does look like it has increased bilateral hazy infiltrates. I suspect this is likely related to aspiration pneumonitis and congestive heart failure. I am giving him 40 mg of IV Lasix. I performed a bronchoscopy yesterday to evaluate for possible alveolar hemorrhage. There is no evidence of alveolar hemorrhage. Cell counts were indicative of a neutrophilic BAL. Cultures so far negative. We also placed a right IJ central line yesterday. Continue antibiotics for now. Procalcitonin trended upwards. No signs of active GI bleed. We are transitioning the Protonix drip to twice daily Protonix. Stop the octreotide drip. We will follow-up with surgery with regards to starting tube feeding. I did personally speak with cardiology and they feel that echocardiogram is consistent with possible Takastubo. Troponin is downtrending. He is off pressors as able. He is still on Levophed and vasopressin. He does have a history of cirrhosis. We are continuing lactulose per rectum until we can start lactulose via the OG tube. Ammonia has been trending down. Limited utility in trending the ammonia. CRITICAL CARE TIME - I have personally spent 30 minutes of critical care time in the direct management of this patient. This is a life/limb threatening event. This includes time spent evaluating patient, direct bedside care, chart review, placing orders, interpretation of diagnostic studies, discussion with consultants, patient, and family members, as well as other required patient management activities. This time is exclusive of all separately billable procedures, and teaching time and separate from and in addition to any other critical care service time. (2) Upper GI bleed: (3) Incarcerated ventral hernia: (4) Acute hepatic encephalopathy: (5) Decompensated hepatic cirrhosis: (6) Hyperammonemia: (7) Hepatic encephalopathy: Admission and Anticipated Discharge Date Admission Date: February 16, 2020 Subjective Patient seen and examined today. He is currently on 75 mcg of fentanyl. He is laying in bed. He is not following commands. He does move his extremities spontaneously. He is currently on 40% FiO2 and 8 of PEEP. Physical Exam Constitutional: Patient is elderly and frail-appearing. He is currently intubated Eyes: Pupils pinpoint ENMT: Endotracheal tube and OG tube are in place. Neck: normal visual inspection Respiratory: normal respiratory effort, lungs clear to auscultation Cardiovascular: RRR, no murmur, no edema Gastrointestinal (Abdomen): Abdomen is soft and nontender. Surgical wound is present and appears clean and intact Musculoskeletal: no cyanosis or clubbing, extremities motor strength 5/5 Skin: no rashes, warm and dry Neurologic: Exam is limited as patient is currently sedated Psychiatric: Unobtainable given the patient's condition. Results & Data Results & Data ([facility] [place]) Vital Signs (Past 12 Hours) Vital Signs Pulse Resp BP Pulse Ox 02/18/20 07:15 88 14 97 02/18/20 06:00 68 97 02/18/20 05:55 69 101/57 L 97 02/18/20 05:40 67 98/60 L 98 02/18/20 05:25 68 15 103/60 99 02/18/20 05:10 75 103/66 95 02/18/20 05:00 70 96 02/18/20 04:55 72 107/56 L 94 02/18/20 04:40 72 113/60 95 02/18/20 04:25 77 116/68 94 02/18/20 04:10 71 104/64 95 02/18/20 04:00 73 104/64 97 02/18/20 02:00 58 L 99 02/18/20 01:55 60 93/55 L 99 02/18/20 01:54 57 L 15 97 02/18/20 01:40 61 95/54 L 98 02/18/20 01:25 61 95/56 L 97 02/18/20 01:10 60 96/53 L 97 02/18/20 01:00 59 L 96 02/18/20 00:55 59 L 93/56 L 97 02/18/20 00:40 60 94/57 L 96 02/18/20 00:25 70 96/56 L 97 02/18/20 00:10 65 99/56 L 95 02/18/20 00:00 62 105/52 L 95 02/17/20 23:55 68 97/55 L 91 02/17/20 23:40 63 92/52 L 95 02/17/20 23:30 59 L 96 02/17/20 23:25 60 87/52 L 95 02/17/20 23:15 60 96 02/17/20 23:10 63 91/55 L 97 02/17/20 23:07 62 15 97 02/17/20 23:00 60 97 02/17/20 22:55 62 92/54 L 96 02/17/20 22:45 64 96 02/17/20 22:40 65 89/54 L 96 02/17/20 22:30 65 96 02/17/20 22:25 69 94/59 L 95 02/17/20 22:23 61 95/54 L 96 02/17/20 22:15 60 96 02/17/20 22:10 61 89/50 L 96 02/17/20 22:00 64 96 02/17/20 21:55 65 92/54 L 96 02/17/20 21:45 65 96 02/17/20 21:40 67 101/54 L 97 02/17/20 21:30 72 98 02/17/20 21:25 75 107/57 L 98 Coding Level of Care Code Critical Care 1st 30-74 mins Diagnoses S/P admission to ICU (intensive care unit) Upper GI bleed K92.2 Incarcerated ventral hernia K43.6 Acute hepatic encephalopathy K72.00 Decompensated hepatic cirrhosis K72.90 Hyperammonemia E72.20 Hepatic encephalopathy K72.90 Time Spent (min) 30
[2020-02-18] MEDS: NOREPINEPHRINE BIT INJ 8 MG in DEXTROSE 5% 250 ML IV SCH (09:29)
--- NOTE | 2020-02-18 12:52 | Cardiology Progress Note ---
Date of Service February 18, 2020 Assessment & Plan (1) NSTEMI (non-ST elevated myocardial infarction): (2) Aspiration pneumonia: (3) GI bleed: (4) Incarcerated ventral hernia: Postoperative date 2, status post emergent operative intervention for incarcerated ventral hernia, bowel obstruction. Patient with likely multifactorial respiratory insufficiency due to aspiration pneumonia, congestive heart failure. Most recent troponin level from 195 last night was 4.07, ongoing lactic acidosi s noted with lactate level 2.3 this morning. EKG 02/18/2020 at 7:31 AM revealed sinus rhythm at 85 bpm, baseline artifact, lateral T wave inversions. From a cardiac perspective, presentation is still compatible with either underlying ischemic heart disease, or more likely stress-induced cardiomyopathy with left ventricular apical ballooning pattern noted on echocardiogram with apical wall motion abnormality out of proportion to his relatively mild troponin spill. Pulmonary suctioning reveals blood-tinged sputum this morning. Due to GI bleeding, and blood in his sputum, he is not a candidate for antiplatelet therapy. He is not a candidate for beta-clau due to his relative hypotension, and he is not a candidate for statin therapy. Continue ongoing supportive care with pressors. Agree with cautious diuresis as blood pressure allows. Sequential pneumatic compression devices for DVT prophylaxis. Subjective Patient seen in follow-up of abnormal EKG, elevated troponin, versus ischemic heart disease versus stress-induced cardiomyopathy. Patient remains sedated on the ventilator, he is on pressor support with vasopressin and norepinephrine. Chest x-ray performed earlier today reveals superimposed pulmonary edema pattern on top of suspected changes due to aspiration pneumonia. Furosemide had just been administered, 40 mg IV, as per the critical care team, prior to my arrival. Patient is also receiving lactulose due to his history of liver disease and elevated ammonia level. Review of Systems Review of Systems: Unobtainable due to endotracheal tube Physical Exam Physical Exam: Temp Pulse Resp BP Pulse Ox 36.2 C L 76 15 96/50 L 95 02/16/20 17:06 02/18/20 10:11 02/18/20 10:09 02/18/20 10:11 02/18/20 10:11 Constitutional: Acutely ill Respiratory: Mildly decreased breath sounds at the bases Cardiovascular: RRR, no murmur, no edema Gastrointestinal (Abdomen): Midline incision intact, no drainage Neurologic: Unresponsive Results & Data Vital Signs (Past 12 Hours) Vital Signs Pulse Resp BP Pulse Ox 02/18/20 10:11 76 96/50 L 95 02/18/20 10:09 70 15 97 02/18/20 09:41 72 91/52 L 98 02/18/20 09:10 84 111/61 95 02/18/20 08:40 71 102/58 L 99 02/18/20 08:10 68 99/55 L 98 02/18/20 07:40 77 100/62 100 02/18/20 07:15 88 14 97 02/18/20 07:10 87 115/64 95 02/18/20 06:00 68 97 02/18/20 05:55 69 101/57 L 97 02/18/20 05:40 67 98/60 L 98 02/18/20 05:25 68 15 103/60 99 02/18/20 05:10 75 103/66 95 02/18/20 05:00 70 96 02/18/20 04:55 72 107/56 L 94 02/18/20 04:40 72 113/60 95 02/18/20 04:25 77 116/68 94 02/18/20 04:10 71 104/64 95 02/18/20 04:00 73 104/64 97 02/18/20 02:00 58 L 99 02/18/20 01:55 60 93/55 L 99 02/18/20 01:54 57 L 15 97 02/18/20 01:40 61 95/54 L 98 02/18/20 01:25 61 95/56 L 97 02/18/20 01:10 60 96/53 L 97 02/18/20 01:00 59 L 96 02/18/20 00:55 59 L 93/56 L 97 Laboratory Results Cardiac Enzymes 02/17/20 02/17/20 02/18/20 Range/Units 13:47 19:55 04:20 AST 40 H (15-37) U/L Troponin I 5.340 H* 4.070 H* (0-0.045) ng/ml Coagulation 02/18/20 Range/Units 04:20 PT 15.0 H (9.0-12.0) Seconds CBC 02/18/20 Range/Units 04:20 WBC 15.68 H (4.8-10.8) K/uL RBC 2.76 L (4.7-6.1) M/uL Hgb 9.0 L (14.0-18.0) g/dL Hct 26.9 L (42-52) % Plt Count 162 (130-400) K/uL Neut # (Auto) 13.56 H (1.4-6.5) K/uL Lymph # (Auto) 1.04 L (1.2-3.4) K/uL Saunders # (Auto) 0.80 H (0.11-0.59) K/uL Eos # (Auto) 0.19 (0-0.5) K/uL Baso # (Auto) 0.03 (0-0.2) K/uL Comprehensive Metabolic Panel 02/18/20 Range/Units 04:20 Sodium 138 (136-145) mmol/L Potassium 4.0 (3.5-5.1) mmol/L Chloride 115 H (98-107) mmol/L Carbon Dioxide 20 L (21-32) mmol/L BUN 23 H (7-18) mg/dl Creatinine 1.23 (0.6-1.4) mg/dl Glucose 147 H (70-99) mg/dl Calcium 7.6 L (8.5-10.1) mg/dl Direct Bilirubin 0.6 H (0-0.2) mg/dl AST 40 H (15-37) U/L ALT 20 (12-78) U/L Alkaline Phosphatase 48 (45-117) U/L Total Protein 5.8 L (6.4-8.2) gm/dl Albumin 2.8 L (3.4-5.0) gm/dl Intake and Output 02/17/20 02/18/20 02/18/20 22:59 06:59 14:59 Intake Total 926.557 / 3782.114 1286.988 / 3782.114 959.449 / 959.449 Output Total 250 / 920 300 / 920 470 / 470 Balance 676.557 / 2862.114 986.988 / 2862.114 489.449 / 489.449 Intake: IV 926.557 / 3722.114 1256.988 / 3722.114 959.449 / 959.449 Ofirmev 65 ml @ 200 mls/hr IV 65 / 65 NOW ONE Rx#:[id number] Levophed Inj 8 mg In D5w 250 ml 46.743 / 46.743 @ 0.13 MCG/KG/MIN 15.848 mls/ hr IV .[id number] [facility] Rx#:[id number] Levophed Inj 8 mg In D5w 500 ml 231.44 / 442.20 488.00 / 488.00 @ 0.13 MCG/KG/MIN 31.204 mls/ hr IV .[id number] [facility] Rx#:[id number] Normosol-R 1,000 ml @ 80 mls/hr 869.333 / 869.333 IV .[id number] [facility] Rx#:[id number] Sandostatin 500 Mcg In Sodium 30.45 / 133.175 Chloride 100 ml @ 50 MCG/HR 10. 5 mls/hr IV .Q10H [facility] Rx#: [id number] Protonix 40 mg In D5 100 ml @ 100 / 387.333 87.333 / 387.333 100 / 100 20 mls/hr IV Q5H [facility] Rx#: [id number] Zosyn 4.5 gm In D5 100 ml @ 30 240 / 360 120 / 360 mls/hr IV Q8H [facility] Rx#:[id number] Pitressin Synthetic 20 Units In 101.000 / 265.122 63.122 / 265.122 99.623 / 99.623 Sodium Chloride 100 ml @ 0.04 UNIT/MIN 12.12 mls/hr IV . Q8H20M [facility] Rx#:[id number] fentaNYL DRIP 1,250 mcg In 250 158.667 / 219.584 21 / 219.584 225.083 / 225.083 ml @ 50 MCG/HR 10 mls/hr IV . Q24H [facility] Rx#:[id number] DIPRIVAN 1,000 mg In 100 ml @ 96.2 / 96.2 26.46 MCG/KG/MIN 10.002 mls/hr IV .Q10H [facility] Rx#:[id number] Tube Irrigant 30 / 60 Output: Urine Amount (Catheter) 250 / 690 190 / 690 470 / 470 Gustafson/Indwelling 250 / 690 190 / 690 470 / 470 Gastric Drainage 110 / 230 Oral 110 / 230 Other: Weight 64.1 kg
[2020-02-18] MEDS: INSULIN ASPART 100 UNITS/ML 3 ML PEN SC SCH ×3 (12:54→21:43)
--- NOTE | 2020-02-18 15:26 | Electrocardiogram Report ---
Test Reason : Blood Pressure : / mmHG Vent. Rate : 085 BPM Atrial Rate : 085 BPM P-R Int : 174 ms QRS Dur : 068 ms QT Int : 398 ms P-R-T Axes : 073 000 -65 degrees QTc Int : 473 ms Poor data quality, interpretation may be adversely affected Normal sinus rhythm Low voltage QRS T wave abnormality, consider lateral ischemia Abnormal ECG When compared with ECG of 17-FEB-2020 06:57, Criteria for Inferior infarct are no longer Present Inverted T waves have replaced nonspecific T wave abnormality in Anterolateral leads QT has shortened Confirmed by Navneet Ortega ([id number]) on 02/18/2020 3:26:10 PM Referred By: REFERRED SELF Confirmed By:Anup Ortega
[2020-02-18] MEDS ORDERED: UNIT DOSE COMPOUND PR SCH ×2 (16:00→21:00)
--- NOTE | 2020-02-18 19:11 | Hospitalist Progress Note ---
Date of Service February 18, 2020 Assessment & Plan (1) Incarcerated ventral hernia: (2) SBO (small bowel obstruction): Present on admission with altered mental status abdominal distention associated with vomiting CT abd/pelvis showed highly concerning for a high-grade partial or complete sma ll bowel obstruction. This may be due to interval development of a herniated short segment of small bowel within the ventral hernia. KUB showed small bowel obstruction. Surgery on board S/P day#2 Open Ventral Hernia Repair and release of small bowel obstruction by dr. Shafer Intubated on vent support On IV fentanyl drip Continue PPI drip and IV Zosyn (3) Acute hepatic encephalopathy: CT head showed no acute intracranial abnormality Sedated with fentanyl drip currently and required vent support Ammonia level on admission 90, then dropped to 40 today Continue Lactulose (4) NSTEMI (non-ST elevated myocardial infarction): Troponin on admission wnl, that peaked to 7.5, now trending down to 4 EKG showed no acute ischemia ECHO done showed hypokinesis to akinesis with sparing of the basal segment with EF 35-40 % Finding suggestive of a stress-induced cardiomyopathy with left ventricular api eric ballooning pattern rather than an ST segment elevation myocardial infarction Cardiology on board No antiplatelet therapy due to GI bleed Continue monitor closely (5) Acute upper GI bleed: Noted coffee ground emesis in ER. Hgb on admission 12.9 Hgb 9 today GI on board On Protonix drip and octreotide (6) Aspiration pneumonia: CXR showed diffuse bilateral parenchymal infiltrative change Elevated lactic acid, WBC and procalcitonin Intubated on vent support Continue IV Zosyn (7) Acute kidney injury superimposed on CKD: BUN: 19, Cr: 1.6. Recent baseline Cr~1.1, was up to 1.3 in 2019 Monitor renal functions (8) Cirrhosis: H/O Cirrhosis with ascites. S/P TIPS in 2019. Requires recurrent paracentesis. (9) Paroxysmal A-fib: Not on anticoagulation secondary to recurrent paracentesis. Not on beta- clau secondary to bradycardia, hypotension Admission and Anticipated Discharge Date Admission Date: February 16, 2020 Subjective Pt was seen and examined Sedated on vent support with Fentanyl drip He is responded and moving more Physical Exam Physical Exam: General- on mechanical vent support Head- atraumatic Eyes- PERRL, EOMI, ENT- intubated Neck- supple, no JVD Lungs- no wheezing Heart- regular rhythm; no murmur Abdomen- Hypoactive bowel sound Extremities- no calf tenderness Neuro- on fentanyl drip sedated Skin- warm & dry Results & Data Results & Data ([facility]) Vital Signs (Past 12 Hours) Vital Signs Pulse Resp BP Pulse Ox 02/18/20 18:13 90 16 95 02/18/20 15:28 14 02/18/20 15:05 89 17 92 02/18/20 14:43 86 106/48 L 93 02/18/20 13:43 81 101/56 L 92 02/18/20 13:00 86 17 96 02/18/20 12:36 90 93/62 L 96 02/18/20 12:06 87 109/59 L 94 02/18/20 11:36 84 103/60 92 02/18/20 11:06 74 99/52 L 96 02/18/20 10:11 76 96/50 L 95 02/18/20 10:09 70 15 97 02/18/20 09:41 72 91/52 L 98 02/18/20 09:10 84 111/61 95 02/18/20 08:40 71 102/58 L 99 02/18/20 08:10 68 99/55 L 98 02/18/20 07:40 77 100/62 100 02/18/20 07:15 88 14 97
[2020-02-18] MEDS ORDERED: FUROSEMIDE 40 MG in SYRINGE 0 ML IV SCH (21:00)
[2020-02-18] MEDS: FENTANYL BOLUS FROM BAG IV PRN (21:24)
[2020-02-18] MEDS: PANTOprazole 40 MG in SYRINGE 0 ML IV SCH (21:37)
[2020-02-18] MEDS: UNIT DOSE COMPOUND PR SCH (23:44)
[2020-02-19] MEDS ORDERED: METOPROLOL TARTRATE 1 MG/ML VIAL IV STA ×2 (00:35→01:03)
[2020-02-19] MEDS ORDERED: METOPROLOL TARTRATE 1 MG/ML VIAL IV ONE (00:45)
[2020-02-19] MEDS: INSULIN ASPART 100 UNITS/ML 3 ML PEN SC SCH ×6 (00:50→21:02)
[2020-02-19] MEDS: FENTANYL BOLUS FROM BAG IV PRN ×3 (01:25→21:06)
[2020-02-19] MEDS: PIPERACILLIN/TAZOBACTAM 4.5 GM in DEXTROSE 5% 100 ML IV SCH ×3 (02:35→17:40)
[2020-02-19 04:49] LABS: Basophils # (auto) 0.02 K/uL (0-0.2); Basophils % (auto) 0.1 %; Eosinophils # (auto) 0.14 K/uL (0-0.5); Eosinophils % (auto) 0.8 %; Hemoglobin 8.9 g/dL (14.0-18.0); Immature Granulocytes # (auto) 0.08 K/uL (0.00-0.02); Immature Granulocytes % (auto) 0.5 %; Lymphocytes # (auto) 0.89 K/uL (1.2-3.4); Lymphocytes % (auto) 5.3 %; Mean Corpuscular Hemoglobin 33.1 pg (25-34); Mean Corpuscular Hgb Conc 34.2 g/dL (32-36); Mean Corpuscular Volume 96.7 fL (80-100); Mean Platelet Volume 9.5 fL (7.4-10.4); Monocytes # (auto) 1.01 K/uL (0.11-0.59); Neutrophils # (auto) 14.72 K/uL (1.4-6.5); Neutrophils % (auto) 87.3 %; Platelet Count 159 K/uL (130-400); RDW Standard Deviation 52.6 fL (36.4-46.3); Red Blood Count 2.69 M/uL (4.7-6.1); White Blood Count 16.86 K/uL (4.8-10.8)
[2020-02-19 04:51] LABS: INR 1.4 (0.9-1.1)
[2020-02-19 05:06] LABS: Albumin Level 2.5 gm/dl (3.4-5.0); BUN Creatinine Ratio 18.6 (10-20); Bilirubin Direct 0.8 mg/dl (0-0.2); Bilirubin,Total 2.4 mg/dl (0.2-1); Creatinine Clr Calc Pharmacy 43.8 ml/min; Est GFR (African American) 63.7; Est GFR (Non-African American) 54.9; Magnesium 1.8 mg/dl (1.8-2.4); Phosphorus 2.8 mg/dl (2.5-4.9); Potassium 3.4 mmol/L (3.5-5.1); Total Protein 5.5 gm/dl (6.4-8.2)
[2020-02-19 05:35] LABS: iSTAT Arterial Blood Gas HCO3 21 meg/L (19-24); iSTAT Arterial Blood Gas pCO2 36 mmHg (35-46); iSTAT Arterial Blood Gas pH 7.37 (7.35-7.45); iSTAT Arterial Blood Gas pO2 97 mmHg (80-95); iSTAT Carbon Dioxide 22 mmol/L (24-31); iSTAT Site Art Line
[2020-02-19] MEDS: VASOPRESSIN 20 UNITS in 0.9 % SODIUM CHLORIDE 100 ML IV SCH ×3 (05:44→23:35)
[2020-02-19] MEDS: MAGNESIUM SULFATE / D5W 1 GM/100 ML BAG IV SCH ×2 (05:50→07:48)
[2020-02-19] MEDS: POTASSIUM CHLORIDE / WTR 20 MEQ/100 ML PLCT IV SCH ×4 (06:06→12:10)
[2020-02-19] MEDS: NOREPINEPHRINE BIT INJ 8 MG in DEXTROSE 5% 250 ML IV SCH ×3 (07:09→09:36)
--- NOTE | 2020-02-19 07:41 | XRay Report ---
XR chest 1V portable CLINICAL HISTORY: Respiratory failure. COMPARISON STUDY: Chest radiograph February 18, 2020. FINDINGS: Tip of the nasogastric tube is below the lower aspect of this image but at least within the stomach. Tip of endotracheal tube is 5 cm above the gareth. Right internal jugular central line is i n place. There is no pneumothorax. No pleural effusion is identified. Cardiac size is normal. Mediast inal contours are unremarkable. Extensive bilateral airspace opacities are similar to prior exam. Old right clavicular fracture is noted. IMPRESSION: 1. Satisfactory positioning of lines and tubes. 2. No significant change in extensive bilateral airspace opacities which may reflect multifocal pneum onia or pulmonary edema. ACT 112: Negative or not required by law. Electronically signed by: Joce Ferguson M.D. 02/19/2020 7:39 AM
[2020-02-19] MEDS: PANTOprazole 40 MG in SYRINGE 0 ML IV SCH ×2 (08:19→21:02)
[2020-02-19] MEDS: UNIT DOSE COMPOUND PR SCH (08:20)
--- NOTE | 2020-02-19 08:38 | Surgery Progress Note ---
Date of Service pt is still on vent with pressor drip, NG 300ml, some stool in rectal tube, February 19, 2020 Assessment & Plan (1) Postoperative follow-up: F/U S/P repair incarcerated ventral hernia, pt is still on vent, possible, pt develops recurrent ventral hernia, not incarcerated now, reducible, no emergent surgical intervention now, start tube feeding today, possible remove rectal tube, will F/U Supervising Physician Co-Signing Physician Notes I have seen and examined the patient on 02/16 with CHRISTOFER Delacruz whose note reflects our findings and plan. Subjective Pt was seen and examined Sedated on vent support with Fentanyl drip He is responded and moving more Physical Exam Gastrointestinal (Abdomen): Inspection/Auscultation: + abdominal surgical scar Percussion/Palpation: abdomen soft and + hernia middle line incision, some bulging on incision site, no redness, no tenderness, BS +, Results & Data Vital Signs (Past 12 Hours) Vital Signs Pulse Resp BP Pulse Ox 02/19/20 07:22 83 19 96 02/19/20 06:00 79 95 02/19/20 05:43 79 103/69 98 02/19/20 05:15 70 17 98 02/19/20 04:43 78 98/63 L 02/19/20 04:00 84 104/55 L 02/19/20 03:43 72 91/58 L 96 02/19/20 02:43 70 93/56 L 97 02/19/20 02:36 71 15 95 02/19/20 02:02 130 H 02/19/20 01:43 67 83/52 L 96 02/19/20 00:51 142 H 103/56 L 02/19/20 00:43 130 H 86/57 L 97 02/19/20 00:00 130 H 109/55 L 02/18/20 23:43 86 102/60 97 02/18/20 23:32 87 16 96 02/18/20 22:43 101 H 111/59 L 93 02/18/20 21:43 90 104/61 95 02/18/20 21:40 89 15 91 02/18/20 20:43 86 102/59 L 94 Laboratory Results Abnormal lab results 02/18/20 02/18/20 02/18/20 Range/Units 12:33 17:58 21:39 WBC (4.8-10.8) K/uL RBC (4.7-6.1) M/uL Hgb (14.0-18.0) g/dL Hct (42-52) % RDW Std Deviation (36.4-46.3) fL RDW Coeff of Scott (11.5-14.5) % Immature Gran # (Auto) (0.00-0.02) K/uL Neut # (Auto) (1.4-6.5) K/uL Lymph # (Auto) (1.2-3.4) K/uL Hockley # (Auto) (0.11-0.59) K/uL PT (9.0-12.0) Seconds INR (0.9-1.1) POC pO2 (80-95) mmHg POC Total CO2 (24-31) mmol/L POC ABG O2 Sat (90-95) % Potassium (3.5-5.1) mmol/L Chloride (98-107) mmol/L BUN (7-18) mg/dl Glucose (70-99) mg/dl POC Glucose (other) 141 H 119 H 142 H (70-99) mg/dl Calcium (8.5-10.1) mg/dl Total Bilirubin (0.2-1) mg/dl Direct Bilirubin (0-0.2) mg/dl AST (15-37) U/L Total Protein (6.4-8.2) gm/dl Albumin (3.4-5.0) gm/dl Procalcitonin (0-0.5) ng/ml 02/19/20 02/19/20 02/19/20 Range/Units 00:02 04:07 04:15 WBC 16.86 H (4.8-10.8) K/uL RBC 2.69 L (4.7-6.1) M/uL Hgb 8.9 L (14.0-18.0) g/dL Hct 26.0 L (42-52) % RDW Std Deviation 52.6 H (36.4-46.3) fL RDW Coeff of Scott 15.0 H (11.5-14.5) % Immature Gran # (Auto) 0.08 H (0.00-0.02) K/uL Neut # (Auto) 14.72 H (1.4-6.5) K/uL Lymph # (Auto) 0.89 L (1.2-3.4) K/uL Hockley # (Auto) 1.01 H (0.11-0.59) K/uL PT (9.0-12.0) Seconds INR (0.9-1.1) POC pO2 (80-95) mmHg POC Total CO2 (24-31) mmol/L POC ABG O2 Sat (90-95) % Potassium (3.5-5.1) mmol/L Chloride (98-107) mmol/L BUN (7-18) mg/dl Glucose (70-99) mg/dl POC Glucose (other) 142 H 145 H (70-99) mg/dl Calcium (8.5-10.1) mg/dl Total Bilirubin (0.2-1) mg/dl Direct Bilirubin (0-0.2) mg/dl AST (15-37) U/L Total Protein (6.4-8.2) gm/dl Albumin (3.4-5.0) gm/dl Procalcitonin (0-0.5) ng/ml 02/19/20 02/19/20 02/19/20 Range/Units 04:15 04:15 05:20 WBC (4.8-10.8) K/uL RBC (4.7-6.1) M/uL Hgb (14.0-18.0) g/dL Hct (42-52) % RDW Std Deviation (36.4-46.3) fL RDW Coeff of Scott (11.5-14.5) % Immature Gran # (Auto) (0.00-0.02) K/uL Neut # (Auto) (1.4-6.5) K/uL Lymph # (Auto) (1.2-3.4) K/uL Hockley # (Auto) (0.11-0.59) K/uL PT 15.0 H (9.0-12.0) Seconds INR 1.4 H (0.9-1.1) POC pO2 97 H (80-95) mmHg POC Total CO2 22 L (24-31) mmol/L POC ABG O2 Sat 97.0 H (90-95) % Potassium 3.4 L (3.5-5.1) mmol/L Chloride 112 H (98-107) mmol/L BUN 23 H (7-18) mg/dl Glucose 159 H (70-99) mg/dl POC Glucose (other) (70-99) mg/dl Calcium 8.0 L (8.5-10.1) mg/dl Total Bilirubin 2.4 H (0.2-1) mg/dl Direct Bilirubin 0.8 H (0-0.2) mg/dl AST 52 H (15-37) U/L Total Protein 5.5 L (6.4-8.2) gm/dl Albumin 2.5 L (3.4-5.0) gm/dl Procalcitonin (0-0.5) ng/ml 02/19/20 02/19/20 Range/Units 07:02 08:18 WBC (4.8-10.8) K/uL RBC (4.7-6.1) M/uL Hgb (14.0-18.0) g/dL Hct (42-52) % RDW Std Deviation (36.4-46.3) fL RDW Coeff of Scott (11.5-14.5) % Immature Gran # (Auto) (0.00-0.02) K/uL Neut # (Auto) (1.4-6.5) K/uL Lymph # (Auto) (1.2-3.4) K/uL Hockley # (Auto) (0.11-0.59) K/uL PT (9.0-12.0) Seconds INR (0.9-1.1) POC pO2 (80-95) mmHg POC Total CO2 (24-31) mmol/L POC ABG O2 Sat (90-95) % Potassium (3.5-5.1) mmol/L Chloride (98-107) mmol/L BUN (7-18) mg/dl Glucose (70-99) mg/dl POC Glucose (other) 149 H (70-99) mg/dl Calcium (8.5-10.1) mg/dl Total Bilirubin (0.2-1) mg/dl Direct Bilirubin (0-0.2) mg/dl AST (15-37) U/L Total Protein (6.4-8.2) gm/dl Albumin (3.4-5.0) gm/dl Procalcitonin 1.93 H (0-0.5) ng/ml
[2020-02-19] MEDS ORDERED: FUROSEMIDE 40 MG in SYRINGE 0 ML IV ONE (09:00)
[2020-02-19] MEDS ORDERED: DEXAMETHASONE SOD PHOSPHATE 20 MG in SYRINGE 0 ML IV SCH (09:15)
[2020-02-19] MEDS: LACTULOSE 200 GM, WATER, STERILE IRRIG 700 ML, BARCODE IDENTIFIER 1 EA PR SCH (09:37)
--- NOTE | 2020-02-19 09:56 | Critical Care Progress Note ---
Date of Service February 19, 2020 Assessment & Plan (1) S/P admission to ICU (intensive care unit): Hemoptysis is improved. Patient essentially has ARDS at this point due to aspiration. He also has a reduced ejection fraction we are currently diuresing him with Lasix. Had an episode of atrial fibrillation overnight likely due to hypokalemia and coronary artery disease. Replacing potassium. I am starting him on 20 mg of IV Decadron for 5 days and then tapering 10 mg for 5 days to complete a course of 10 days of Decadron per the DEXA ARDS protocol. Bronchioloalveolar cultures are growing yeast. He has been afebrile. This likely represents a contaminant. Procalcitonin is trending down to 1.93 from 2.18 yesterday. Continue Zosyn. Attempting to wean the norepinephrine off. He is currently on vasopressin. Hopefully the Decadron will assist in that as well. Will initiate tube feeds today. SCDs for DVT prophylaxis. He is at risk for GI bleed as there was a question of GI bleed earlier this admission. I am aware the Decadron can certainly potentiate GI bleed. We will keep a close eye on this. Discussed with the bedside RN, hospitalist and equipment sales specialist at bedside. CRITICAL CARE TIME - I have personally spent 40 minutes of critical care time in the direct managemen t of this patient. This is a life/limb threatening event. This includes time spent evaluating patient, direct bedside care, chart review, placing orders, interpretation of diagnostic studies, discussion with consultants, patient, and family members, as well as other required patient management activities. This time is exclusive of all separately billable procedures, and teaching time and separate from and in addition to any other critical care service time. (2) Upper GI bleed: (3) Incarcerated ventral hernia: (4) Acute hepatic encephalopathy: (5) Decompensated hepatic cirrhosis: (6) Hyperammonemia: (7) Hepatic encephalopathy: (8) ARDS (adult respiratory distress syndrome): (9) Septic shock: Admission and Anticipated Discharge Date Admission Date: February 16, 2020 Subjective Patient had some atrial fibrillation overnight and received metoprolol. Electrolytes are being repleted. He had some desaturation events and is currently on FiO2 50% and PEEP of 8. He also has some agitation overnight and required restraints. He does move all his extremities spontaneously. Does not follow commands. On 25 mcg of fentanyl continuously. Review of Systems Review of Systems: Unobtainable due to endotracheal tube Physical Exam Constitutional: Intubated and sedated. Eyes: Pinpoint pupils ENMT: Endotracheal tube in place. Neck: normal visual inspection Respiratory: Coarse breath sounds on the ventilator. Diffuse crackles. Cardiovascular: RRR, no murmur, no edema Gastrointestinal (Abdomen): Large surgical scar noted. Clean and dry. Musculoskeletal: no cyanosis or clubbing, extremities motor strength 5/5 Skin: no rashes, warm and dry Neurologic: Nonfocal exam. Pupils pinpoint. Moving extremities spontaneously. Psychiatric: A+Ox3, euthymic affect Results & Data Results & Data ([facility]) Vital Signs (Past 12 Hours) Vital Signs Pulse Resp BP Pulse Ox 02/19/20 07:43 76 98/53 L 95 02/19/20 07:22 83 19 96 02/19/20 06:43 90 109/78 91 02/19/20 06:00 79 95 02/19/20 05:43 79 103/69 98 02/19/20 05:15 70 17 98 02/19/20 04:43 78 98/63 L 02/19/20 04:00 84 104/55 L 02/19/20 03:43 72 91/58 L 96 02/19/20 02:43 70 93/56 L 97 02/19/20 02:36 71 15 95 02/19/20 02:02 130 H 02/19/20 01:43 67 83/52 L 96 02/19/20 00:51 142 H 103/56 L 02/19/20 00:43 130 H 86/57 L 97 02/19/20 00:00 130 H 109/55 L 02/18/20 23:43 86 102/60 97 02/18/20 23:32 87 16 96 02/18/20 22:43 101 H 111/59 L 93 Coding Level of Care Code Critical Care 1st 30-74 mins Diagnoses S/P admission to ICU (intensive care unit) Upper GI bleed K92.2 Incarcerated ventral hernia K43.6 Acute hepatic encephalopathy K72.00 Decompensated hepatic cirrhosis K72.90 Hyperammonemia E72.20 Hepatic encephalopathy K72.90 ARDS (adult respiratory distress syndrome) J80 Septic shock A41.9; R65.21 Time Spent (min) 40
[2020-02-19] MEDS: DEXAMETHASONE SOD PHOSPHATE 20 MG in DEXTROSE 5% 25 ML IV SCH (10:05)
--- NOTE | 2020-02-19 11:05 | Cardiology Progress Note ---
Date of Service February 19, 2020 Assessment & Plan (1) Paroxysmal A-fib: (2) NSTEMI (non-ST elevated myocardial infarction): (3) Septic shock: (4) Aspiration pneumonia: (5) ARDS (adult respiratory distress syndrome): (6) Upper GI bleed: (7) Incarcerated umbilical hernia: Ischemic heart disease versus stress-induced cardiomyopathy noted on admission. Ejection fraction is moderately reduced at 35 to 40%. Patient's x- ray appears more consistent with noncardiogenic pulmonary edema (ARDS) rather than acute volume overload. Continue to monitor urinary output, renal function, and fluid balance daily. Hold diuretic therapy today. 2 short salvos of paroxysmal atrial fibrillation recorded last night. Continue IV metoprolol as needed. Consider addition of low-dose metoprolol 2.5 mg IV every 6 hours if salvos of atrial fibrillation become more frequent. Potassium and magnesium supplemented appropriately. IV pressor, and ventilator management as per critical care. Patient is not a candidate for anticoagulation, antiplatelet, or statin therapy at this time. Subjective Patient seen and examined in the ICU. On ventilator at this time. Opens eyes however does not follow commands. Two salvos of paroxysmal atrial fibrillation recorded overnight. Patient treated with 2 doses of intravenous metoprolol. Currently in sinus rhythm. Norepinephrine and vasopressin infusing. Blood- tinged sputum noted with suctioning the endotracheal tube. Review of Systems Review of Systems: All systems reviewed & are unremarkable except as noted in HPI & below Physical Exam Constitutional: + ill appearing; no acute distress Respiratory: Auscultation: no crackles, no rales, no rhonchi and no wheezes Cardiovascular: Rate/Rhythm: regular rate and regular rhythm Heart Sounds: normal S1 and normal S2; no murmur Gastrointestinal (Abdomen): Inspection/Auscultation: abdomen not distended Percussion/Palpation: abdomen soft; no guarding and abdomen not rigid Skin: no rashes, warm and dry Results & Data Vital Signs (Past 12 Hours) Vital Signs Pulse Resp BP Pulse Ox 02/19/20 07:43 76 98/53 L 95 02/19/20 07:22 83 19 96 02/19/20 06:43 90 109/78 91 02/19/20 06:00 79 95 02/19/20 05:43 79 103/69 98 02/19/20 05:15 70 17 98 02/19/20 04:43 78 98/63 L 02/19/20 04:00 84 104/55 L 02/19/20 03:43 72 91/58 L 96 02/19/20 02:43 70 93/56 L 97 02/19/20 02:36 71 15 95 02/19/20 02:02 130 H 02/19/20 01:43 67 83/52 L 96 02/19/20 00:51 142 H 103/56 L 02/19/20 00:43 130 H 86/57 L 97 02/19/20 00:00 130 H 109/55 L 02/18/20 23:43 86 102/60 97 02/18/20 23:32 87 16 96
[2020-02-19] MEDS: fentaNYL DRIP 1,250 MCG/250 ML BAG IV SCH (12:30)
--- NOTE | 2020-02-19 12:50 | Electrocardiogram Report ---
Test Reason : Blood Pressure : / mmHG Vent. Rate : 096 BPM Atrial Rate : 096 BPM P-R Int : 192 ms QRS Dur : 084 ms QT Int : 350 ms P-R-T Axes : 075 -02 -73 degrees QTc Int : 442 ms Poor data quality, interpretation may be adversely affected Sinus rhythm with Premature supraventricular complexes and with frequent Premature ventricular comple xes Low voltage QRS Nonspecific T wave abnormality Abnormal ECG When compared with ECG of 18-FEB-2020 07:31, Premature ventricular complexes are now Present Premature supraventricular complexes are now Present Nonspecific T wave abnormality has replaced inverted T waves in Anterolateral leads Confirmed by Theo Mejia ([id number]) on 02/19/2020 12:50:19 PM Referred By: REFERRED SELF Confirmed By:Theo Mejia
[2020-02-19] MEDS ORDERED: PEPTAMEN INTENSE VHP 1.0 CAL 1,000 ML BAG OG SCH ×2 (15:30→17:45)
--- NOTE | 2020-02-19 16:59 | Hospitalist Progress Note ---
Date of Service February 19, 2020 Assessment & Plan (1) Incarcerated ventral hernia: (2) SBO (small bowel obstruction): Present on admission with altered mental status abdominal distention associated with vomiting CT abd/pelvis showed highly concerning for a high-grade partial or complete sma ll bowel obstruction. This may be due to interval development of a herniated short segment of small bowel within the ventral hernia. KUB showed small bowel obstruction. Surgery on board S/P day#3 Open Ventral Hernia Repair and release of small bowel obstruction by dr. Shafer Intubated on vent support On IV fentanyl drip and propofol Continue PPI drip and IV Zosyn (3) Acute hepatic encephalopathy: CT head showed no acute intracranial abnormality Sedated with fentanyl drip currently and required vent support Ammonia level on admission 90, then dropped to 40 today Continue Lactulose (4) NSTEMI (non-ST elevated myocardial infarction): Troponin on admission wnl, that peaked to 7.5, now trending down to 4 EKG showed no acute ischemia ECHO done showed hypokinesis to akinesis with sparing of the basal segment with EF 35-40 % Finding suggestive of a stress-induced cardiomyopathy with left ventricular apical ballooning pattern rather than an ST segment elevation myocardial infarction Cardiology on board No antiplatelet therapy due to GI bleed Continue monitor closely (5) Acute upper GI bleed: Noted coffee ground emesis in ER. Hgb on admission 12.9 Hgb 8.9 today GI on board On Protonix drip Octreotide was discontinued Stable (6) Aspiration pneumonia: ARDS CXR showed diffuse bilateral parenchymal infiltrative change Elevated lactic acid, WBC and procalcitonin Intubated on vent support Continue IV Zosyn IV decadron starting (will monitor for GI bleed) (7) Acute kidney injury superimposed on CKD: BUN: 19, Cr: 1.6. Recent baseline Cr~1.1, was up to 1.3 in 2019 Monitor renal functions (8) Cirrhosis: H/O Cirrhosis with ascites. S/P TIPS in 2019. Requires recurrent paracentesis. (9) Paroxysmal A-fib: Had 2 episodes of Afib last night Not on anticoagulation secondary to recurrent paracentesis. Starting on low dose IV metoprolol prn Will keep K above 4 and Mg above 2 cardiology on board DVT px on SCD due to GI bleed CODE STATUS FULL CODE Admission and Anticipated Discharge Date Admission Date: February 16, 2020 Subjective Pt was seen and examined Sedated with propofol/fentanyl drip on vent support He is starting to open his eyes, move his extremities Continue to require pressor with Vasopressin He had 2 episodes of Afib last night Physical Exam 2 Physical Exam: General- on mechanical vent support Head- atraumatic Eyes- PERRL, EOMI, ENT- intubated Neck- supple, no JVD Lungs- no wheezing Heart- regular rhythm; no murmur Abdomen- Hypoactive bowel sound Extremities- no calf tenderness Neuro- moves all 4 extremities Skin- warm & dry Results & Data Results & Data ([facility]) Vital Signs (Past 12 Hours) Vital Signs Pulse Resp BP Pulse Ox 02/19/20 16:14 80 14 93 02/19/20 15:43 74 116/69 93 02/19/20 14:43 70 100/58 L 90 02/19/20 13:43 69 89/53 L 91 02/19/20 12:45 85 14 91 02/19/20 12:44 94 H 112/61 90 02/19/20 11:43 75 98/60 L 93 02/19/20 11:03 70 15 93 02/19/20 10:43 73 90/47 L 92 02/19/20 09:43 83 98/68 L 85 L 02/19/20 08:43 81 91/55 L 97 02/19/20 07:43 76 98/53 L 95 02/19/20 07:22 83 19 96 02/19/20 06:43 90 109/78 91 02/19/20 06:00 79 95 02/19/20 05:43 79 103/69 98 02/19/20 05:15 70 17 98
[2020-02-19] MEDS: LACTULOSE SYRUP 20 GM/30 ML UDC PO SCH (21:01)
[2020-02-20] MEDS: FENTANYL BOLUS FROM BAG IV PRN (00:10)
[2020-02-20] MEDS: INSULIN ASPART 100 UNITS/ML 3 ML PEN SC SCH ×6 (00:11→20:37)
[2020-02-20] MEDS: PIPERACILLIN/TAZOBACTAM 4.5 GM in DEXTROSE 5% 100 ML IV SCH ×3 (02:08→18:21)
[2020-02-20 04:06] LABS: Hematocrit (blood only) 25.3 % (42-52); Hemoglobin 8.6 g/dL (14.0-18.0); Immature Granulocytes # (auto) 0.07 K/uL (0.00-0.02); Immature Granulocytes % (auto) 0.6 %; Lymphocytes # (auto) 0.47 K/uL (1.2-3.4); Lymphocytes % (auto) 3.8 %; Mean Corpuscular Hemoglobin 32.6 pg (25-34); Mean Corpuscular Volume 95.8 fL (80-100); Mean Platelet Volume 9.7 fL (7.4-10.4); Monocytes # (auto) 0.97 K/uL (0.11-0.59); Monocytes % (auto) 7.9 %; Neutrophils # (auto) 10.76 K/uL (1.4-6.5); Neutrophils % (auto) 87.7 %; Platelet Count 161 K/uL (130-400); RDW Coefficient of Variation 14.8 % (11.5-14.5); RDW Standard Deviation 51.3 fL (36.4-46.3); Red Blood Count 2.64 M/uL (4.7-6.1); White Blood Count 12.27 K/uL (4.8-10.8)
[2020-02-20 04:14] LABS: INR 1.4 (0.9-1.1); Prothrombin Time 14.4 Seconds (9.0-12.0)
[2020-02-20 04:24] LABS: Albumin Level 2.3 gm/dl (3.4-5.0); BUN Creatinine Ratio 22.3 (10-20); Bilirubin Direct 0.7 mg/dl (0-0.2); Calcium 8.2 mg/dl (8.5-10.1); Creatinine Clr Calc Pharmacy 40.5 ml/min; Est GFR (African American) 62.5; Est GFR (Non-African American) 53.9; Potassium 3.8 mmol/L (3.5-5.1)
[2020-02-20 04:29] LABS: Bilirubin,Total 1.6 mg/dl (0.2-1); Phosphorus 2.5 mg/dl (2.5-4.9); Total Protein 5.5 gm/dl (6.4-8.2)
[2020-02-20 05:45] LABS: iSTAT Arterial Blood Gas HCO3 25 meg/L (19-24); iSTAT Arterial Blood Gas pCO2 39 mmHg (35-46); iSTAT Arterial Blood Gas pH 7.41 (7.35-7.45); iSTAT Arterial Blood Gas pO2 72 mmHg (80-95); iSTAT Carbon Dioxide 26 mmol/L (24-31); iSTAT Site Art Line
[2020-02-20] MEDS: fentaNYL DRIP 1,250 MCG/250 ML BAG IV SCH ×2 (06:47→08:56)
--- NOTE | 2020-02-20 07:21 | XRay Report ---
XR chest 1V portable CLINICAL HISTORY: resp failure dyspnea COMPARISON STUDY: 02/19/2020 FINDINGS: Endotracheal tube 2 cm above the gareth. Unchanged findings of pulmonary edema versus diffu se bilateral parenchymal infiltrative change. IMPRESSION: No significant change from the prior study. Diffuse bilateral parenchymal infiltrative c hange versus pulmonary edema. Endotracheal tube 2 cm above the gareth. ACT 112: Negative or not required by law. The above report was generated using voice recognition software. It may contain grammatical, syntax or spelling errors. Electronically signed by: Cuong Israel M.D. 02/20/2020 7:20 AM
[2020-02-20] MEDS: NOREPINEPHRINE BIT INJ 8 MG in DEXTROSE 5% 250 ML IV SCH ×2 (07:36→08:56)
[2020-02-20] MEDS: DEXAMETHASONE SOD PHOSPHATE 20 MG in DEXTROSE 5% 25 ML IV SCH (07:37)
[2020-02-20] MEDS: VASOPRESSIN 20 UNITS in 0.9 % SODIUM CHLORIDE 100 ML IV SCH ×3 (07:38→22:39)
[2020-02-20] MEDS: LACTULOSE SYRUP 20 GM/30 ML UDC PO SCH ×2 (08:06→20:40)
[2020-02-20] MEDS: PANTOprazole 40 MG in SYRINGE 0 ML IV SCH ×2 (08:06→20:40)
--- NOTE | 2020-02-20 09:57 | Critical Care Progress Note ---
Date of Service February 20, 2020 Assessment & Plan (1) S/P admission to ICU (intensive care unit): Hemoptysis is improved. Patient essentially has ARDS at this point due to aspiration although this is improving. We will hold on diuretics today. Continuing to monitor electrolytes. Continue 20 mg of IV Decadron for 5 days and then tapering 10 mg for 5 days to complete a course of 10 days of Decadron per the DEXA ARDS protocol. Bronchioloalveolar cultures are growing yeast. He has been afebrile. This likely represents a contaminant. Procalcitonin trending down. Continue Zosyn. Norepinephrine has been weaned off. He is currently on vasopressin and hopefully we will be able to stop this later today. Decadron seems to be helping his respiratory status and is blood pressure as well. We will continue tube feeds if unable to extubate. SCDs for DVT prophylaxis. Ventral hernia incision looks reasonable. Surgery following. Appreciate the recommendation. No further signs of GI bleed. If his mentation does not improve, will consult neurology and obtain MRI and likely start high- dose thiamine. CRITICAL CARE TIME - I have personally spent 40 minutes of critical care time in the direct management of this patient. This is a life/limb threatening event. This includes time spent evaluating patient, direct bedside care, chart review, placing orders, interpretation of diagnostic studies, discussion with consultants, patient, and family members, as well as other required patient management activities. This time is exclusive of all separately billable procedures, and teaching time and separate from and in addition to any other critical care service time. (2) Upper GI bleed: (3) Incarcerated ventral hernia: (4) Acute hepatic encephalopathy: (5) Decompensated hepatic cirrhosis: (6) Hyperammonemia: (7) Hepatic encephalopathy: (8) ARDS (adult respiratory distress syndrome): (9) Septic shock: Admission and Anticipated Discharge Date Admission Date: February 16, 2020 Subjective Patient is off the Levophed currently. I have placed him on a spontaneous breathing trial and his respiratory rates are quite slow currently. He is able to pull about 1 L tidal volume. Saturations in the low 90s. I did discuss the case with the bedside RN. Review of Systems Review of Systems: Unobtainable due to endotracheal tube Physical Exam Neck: normal visual inspection Respiratory: normal respiratory effort, lungs clear to auscultation Cardiovascular: RRR, no murmur, no edema Musculoskeletal: no cyanosis or clubbing, extremities motor strength 5/5 Skin: no rashes, warm and dry Neurologic: Moving limbs spontaneously. Not following command. Psychiatric: A+Ox3, euthymic affect Results & Data Results & Data ([facility]) Vital Signs (Past 12 Hours) Vital Signs Pulse Resp BP Pulse Ox 02/20/20 07:55 68 15 94 02/20/20 06:30 85 94 02/20/20 06:15 88 88 L 02/20/20 06:00 90 93 02/20/20 05:45 82 95 02/20/20 05:43 83 112/73 95 02/20/20 05:40 15 02/20/20 05:30 66 94 02/20/20 05:15 63 94 02/20/20 05:00 70 94 02/20/20 04:45 68 95 02/20/20 04:44 63 103/63 96 02/20/20 04:30 71 96 02/20/20 04:15 70 96 02/20/20 04:00 82 96 02/20/20 03:45 74 96 02/20/20 03:44 82 124/74 94 02/20/20 03:30 69 96 02/20/20 03:15 80 95 02/20/20 03:00 76 96 02/20/20 02:45 69 97 02/20/20 02:44 70 104/61 96 02/20/20 02:30 76 95 02/20/20 02:20 76 15 94 02/20/20 02:15 85 92 02/20/20 02:00 76 92 02/20/20 01:45 76 100 02/20/20 01:44 80 128/72 99 02/20/20 01:30 75 92 02/20/20 01:15 75 95 02/20/20 01:00 87 90 02/20/20 00:45 82 91 02/20/20 00:43 86 107/70 91 02/20/20 00:30 79 94 02/20/20 00:15 75 94 02/20/20 00:00 80 93 02/19/20 23:45 73 95 02/19/20 23:43 76 109/72 96 02/19/20 23:30 76 98 02/19/20 23:15 65 97 02/19/20 23:00 56 L 16 95 02/19/20 22:45 56 L 96 02/19/20 22:43 63 89/51 L 95 02/19/20 22:30 72 97 02/19/20 22:15 63 97 02/19/20 22:00 70 96 Coding Level of Care Code Critical Care 1st 30-74 mins Diagnoses S/P admission to ICU (intensive care unit) Upper GI bleed K92.2 Incarcerated ventral hernia K43.6 Acute hepatic encephalopathy K72.00 Decompensated hepatic cirrhosis K72.90 Hyperammonemia E72.20 Hepatic encephalopathy K72.90 ARDS (adult respiratory distress syndrome) J80 Septic shock A41.9; R65.21 Time Spent (min) 40
[2020-02-20 10:55] LABS: iSTAT Arterial Blood Gas HCO3 24 meg/L (19-24); iSTAT Arterial Blood Gas pCO2 40 mmHg (35-46); iSTAT Arterial Blood Gas pH 7.38 (7.35-7.45); iSTAT Arterial Blood Gas pO2 58 mmHg (80-95); iSTAT Carbon Dioxide 25 mmol/L (24-31); iSTAT FiO2 35 %; iSTAT Site Art Line
--- NOTE | 2020-02-20 11:04 | Surgery Progress Note ---
Date of Service stable, plan to extubate today, February 20, 2020 Assessment & Plan (1) Postoperative follow-up: F/U S/P repair incarcerated ventral hernia, pt is still on vent, possible, pt develops recurrent ventral hernia, not incarcerated now, reducible, no emergent surgical intervention now, start tube feeding today, possible remove rectal tube, will F/U 02/20/2020 11:01AM stable, plan extubate pt today, pull out oral feeding tube, apply abdominal hamilton, pt can thave clear diet after extubation, no emergent surgical indication to repair abdominal hernia now, will F/U Supervising Physician Co-Signing Physician Notes I have seen and examined the patient on 02/16 with CHRISTOFER Delacruz whose note reflects our findings and plan. Subjective Patient is off the Levophed currently. I have placed him on a spontaneous breathing trial and his respiratory rates are quite slow currently. He is able to pull about 1 L tidal volume. Saturations in the low 90s. I did discuss the case with the bedside RN. Physical Exam Gastrointestinal (Abdomen): Inspection/Auscultation: + abdominal surgical scar Percussion/Palpation: abdomen soft and + hernia small bulging on abdominal incision site, possible hernia recurrence, but soft, reducible, no redness, Results & Data Vital Signs (Past 12 Hours) Vital Signs Pulse Resp BP Pulse Ox 02/20/20 08:00 72 02/20/20 07:55 68 15 94 02/20/20 06:30 85 94 02/20/20 06:15 88 88 L 02/20/20 06:00 90 93 02/20/20 05:45 82 95 02/20/20 05:43 83 112/73 95 02/20/20 05:40 15 02/20/20 05:30 66 94 02/20/20 05:15 63 94 02/20/20 05:00 70 94 02/20/20 04:45 68 95 02/20/20 04:44 63 103/63 96 02/20/20 04:30 71 96 02/20/20 04:15 70 96 02/20/20 04:00 82 96 02/20/20 03:45 74 96 02/20/20 03:44 82 124/74 94 02/20/20 03:30 69 96 02/20/20 03:15 80 95 02/20/20 03:00 76 96 02/20/20 02:45 69 97 02/20/20 02:44 70 104/61 96 02/20/20 02:30 76 95 02/20/20 02:20 76 15 94 02/20/20 02:15 85 92 02/20/20 02:00 76 92 02/20/20 01:45 76 100 02/20/20 01:44 80 128/72 99 02/20/20 01:30 75 92 02/20/20 01:15 75 95 02/20/20 01:00 87 90 02/20/20 00:45 82 91 02/20/20 00:43 86 107/70 91 02/20/20 00:30 79 94 02/20/20 00:15 75 94 02/20/20 00:00 80 93 02/19/20 23:45 73 95 02/19/20 23:43 76 109/72 96 02/19/20 23:30 76 98 02/19/20 23:15 65 97 02/19/20 23:00 56 L 16 95
[2020-02-20] MEDS ORDERED: THIAMINE HCL 500 MG in SYRINGE 9 ML IV STA (11:24)
[2020-02-20] MEDS ORDERED: THIAMINE HCL 500 MG in 0.9 % SODIUM CHLORIDE 100 ML IV ONE (12:00)
--- NOTE | 2020-02-20 12:09 | Neurology Consultation ---
Date of Consultation February 20, 2020 Assessment & Plan (1) ARDS (adult respiratory distress syndrome): (2) Septic shock: (3) S/P admission to ICU (intensive care unit): (4) GI bleed: (5) Acute kidney injury superimposed on CKD: (6) Incarcerated ventral hernia: (7) Altered mental status: Michelet Nelson is a 80 yo man w/ PMH of hypertension, hyperlipidemia, diabetes, depression, BPH, paroxysmal A. 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 # AMS: likely multifactorial with recent ARDS requiring fentanyl gtt to maintain vent support and SBO c/b hyperammonemia/GIB/need for surgery/CASH on CKD, cannot r/o stroke given pAFib not on AC or other toxic-metabolic effect, less likely seizure as no clear focus on admission CTH and electrolytes relatively WNL however he does have a h/o head and neck cancer. - agree with obtaining MRI brain, would get with and without contrast if possible given h/o SCC neck cancer - continue treating hyperammonemia as already doing, would re-check ammonia level once more to ensure <50 - continue treating infections as already doing - if above unremarkable, recommend routine EEG to r/o NCSE - hold further fentanyl, consider using precedex prn for agitation while intubated Thank you for this interesting consult. Plan of care discussed with primary team. Please call or text with questions. Dr Page will be taking over the service tomorrow (02/20). History of Present Illness Attending Physician: Dolores Harris MD History of Present Illness Michelet Nelson is a 80 yo man w/ PMH of hypertension, hyperlipidemia, diabetes, depression, BPH, paroxysmal A. 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 In the ED, he had an episode of coffee-ground emesis, was found to have elevated ammonia of 90 with no hemorrhage or large stroke noted on CT head, and was also found to have small bowel obstruction. He was also noted to have ST segment changes on EKG in the ED was attributed to stress-induced cardiomyopathy rather than STEMI. He underwent open ventral hernia repair on February 15 with a release of small bowel obstruction mated to the ICU postop. He has been maintained on fentanyl drip for postop pain, PPI gtt for possible acute GI bleed at admission, and IV Zosyn. Has been receiving lactulose for hyperammonemia. Current labs are notable for WBC 12.27, hemoglobin 8.6, platelets 161, INR 1.4, low O2 sat on most recent ABG on , relatively unremarkable BMP with creatinine 1.26 and BUN 28. Glucose 180, lactate on 425 was mildly elevated 2.6, calcium low at 8.2, magnesium/phosphorus within normal, mildly elevated AST of 45 with relatively normal ALT and alkaline phosphatase, last ammonia on February 17 was 40. On examination today, he opened eyes to voice and would intermittently nod head yes or no to questions. He appeared to move his right upper extremity more than his left was able to move both lower extremities antigravity. Allergies Allergy/AdvReac Type Severity Reaction Status Date / Time No Known Allergies Allergy Verified 02/16/20 13:03 Home Medications Home Medications Medication Instructions Recorded Confirmed Type Centrum Silver 1 tab PO QAM 12/21/18 02/16/20 History tamsulosin [Flomax] 0.4 mg PO QAM 12/21/18 02/16/20 History loratadine 10 mg PO DAILY PRN 01/07/19 02/16/20 History polyethylene glycol 3350 [Miralax] 17 g PO DAILY PRN 01/27/19 02/16/20 History artificial tears(hypromellose) 0.3 1 drops OP QID PRN 02/17/19 02/16/20 History % eye gel cholecalciferol (vitamin D3) 50 2,000 units PO QAM tab 02/17/19 02/16/20 History mcg (2,000 unit) tablet sodium chloride 0.65 % nasal spray 2 sprays INTNAS QID PRN 02/17/19 02/16/20 His tory aerosol Xifaxan 550 mg PO BID 06/12/19 02/16/20 History lactulose 45 ml PO TID 08/06/19 02/16/20 History Restasis 1 drp OPHTHALMIC (EYE) Q12H 09/22/19 02/16/20 History atorvastatin [Lipitor] 10 mg PO HS 09/22/19 02/16/20 History lancets 09/22/19 02/16/20 History omeprazole 20 mg PO DAILY 09/22/19 02/16/20 History ipratropium bromide 2 spray INTRANASAL QID PRN 10/02/19 02/16/20 History azelastine 2 spray INTRANASAL BID 11/17/19 02/16/20 History fluoride (sodium) [PreviDent 5000 1 applic DENTAL TID 11/17/19 02/16/20 History Plus] pilocarpine HCl 5 mg tablet 5 mg PO TID #90 tab 12/23/19 02/16/20 Rx ciprofloxacin HCl 500 mg PO DAILY 01/11/20 02/16/20 History fluoride (sodium) [DentaGel] 1 applic DENTAL DAILY 02/16/20 02/16/20 History furosemide [Lasix] 20 mg PO DAILY 02/16/20 02/16/20 History ondansetron 4 mg PO Q8 PRN 02/16/20 02/16/20 History spironolactone [Aldactone] 100 mg PO QAM 02/16/20 02/16/20 History Patient History Medical History Anemia ARDS (adult respiratory distress syndrome) Ascites (Chronic) 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 Elevated LFTs suspected to be from DILI vs AIH. LFTs normalized now so immunosuppression use was deferred. 4L fluid drained 12/15. Abdomen noticeably distended at PAT appt on 12/31/18. BPH (benign prostatic hyperplasia) (Chronic) Cirrhosis (Chronic) Depression (Chronic) Diabetes mellitus, type II (Chronic) PER , METFORMIN RECENTLY D/C. GERD (gastroesophageal reflux disease) (Chronic) History of abdominal paracentesis (Resolved) 06/11/19, 02/08/19, 11/2018 HLD (hyperlipidemia) (Chronic) HTN (hypertension) (Chronic) No current meds Paroxysmal A-fib (Chronic) FOLLOWS W/ [facility] Poor historian PVCs (premature ventricular contractions) (Chronic) S/P admission to ICU (intensive care unit) Septic shock Sleep apnea (Chronic) NO DEVICE USED Spontaneous bacterial peritonitis (Resolved) Jun 2018. Pt was admitted for a fib RVR and ascites, fluid drawn from abdomen showed SBP. Treated with ABX and discharged. Following now with [facility] ([facility]) and Dr. Monreal (Hepatology). Umbilical hernia Upper GI bleed Surgical History History of adenoidectomy (Chronic) 01/11/19 History of cataract surgery (Chronic) RT/LEFT History of colonoscopy (Chronic) 01/30/16 History of ERCP (Chronic) 05/12/18 - stent removed History of esophagogastroduodenoscopy (EGD) (Chronic) 11/07/2010, 06/23/18 - with endoscopic US History of eye surgery (Chronic) 2008 - TEAR DUCT OPENED UP History of hernia repair (Chronic) 04/02/18 History of intraocular lens implant (Chronic) 2008 - Bilateral History of laryngoscopy (Chronic) 01/11/19 - with biopsies + right modified radical cervical lymphadenectomy History of liver biopsy (Chronic) 05/2018 History of tonsillectomy (Chronic) 01/11/19 History of tooth extraction (Chronic) 01/11/19 S/P cholecystectomy (Chronic) 04/02/2018. Yan 2, grade 1 view. 8.0 ETT. S/P TIPS (transjugular intrahepatic portosystemic shunt) (Chronic) 03/16/19 at [facility] [place] Family History Mother , Passed age 49 from Leukemia No problems noted. Sister , Passed age 6 months of pneumonia No problems noted. Brother , Passed in late 50's of [place] No problems noted. Sister , Passed in 60's of diabetic complications No problems noted. Sister No problems noted. Daughter Breast cancer, Onset Age: 40 Stage III - Currently doing well Brother No problems noted. Brother No problems noted. 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 Feels Safe at Home: Yes Smoking Status: Former smoker Tobacco Type: smokeless tobacco ; packs per day: 0.5 ; Second Hand Exposure: No ; Childhood Exposure to Second-Hand Smoke: Yes caffeine: Yes (3 cups of coffee/week with tea inbetween ) during the past year weight has: decreased > 10 lbs Dental Care, Regularly: No Review of Systems Review of Systems: Unobtainable due to endotracheal tube and Unobtainable due to reduced consciousness Exam (Neuro) Physical Exam: General Exam: GEN: intubated, off sedation, lying in bed CV: RRR on monitor, trace peripheral edema PULM: intubated, sedation with fentanyl held since 9:30am (~3 hours prior to examination) Neuro Exam: MS: Awake and Alert. Unable to answer orientation questions, assess language/cognition given intubation. Inattentive. No clear neglect. CN: Positive blink to threat bilaterally. Pupils pinpoint and minimally reactive bilaterally. Could not visualize optic disc edema on fundoscopic exam. EOMI in horizontal plane. Face symmetric round ETT. Hearing intact to conversation. MOTOR: Normal bulk and tone. Able to move right upper extremity and bilateral lower extremities antigravity. Minimal movement of left left lower extremity noted. REFLEXES: 2+ and brisk at biceps, brachioradialis, 2+ and brisk patella and 1+ Achilles bilaterally. Left toe upgoing, right toe mute. SENSORY: Withdraws and grimaces to noxious stimuli in all extremities COORDINATION: Difficult to assess given mental status GAIT: Deferred as patient is intubated. Results & Data ([facility]) Vital Signs (Past 12 Hours) Vital Signs Pulse Resp BP Pulse Ox 02/20/20 10:44 85 95/50 L 92 02/20/20 10:40 85 7 L 91 02/20/20 09:44 81 99/60 L 93 02/20/20 08:44 64 98/60 L 95 02/20/20 08:00 72 02/20/20 07:55 68 15 94 02/20/20 07:43 67 99/56 L 90 02/20/20 06:51 73 106/61 87 L 02/20/20 06:30 85 94 02/20/20 06:15 88 88 L 02/20/20 06:00 90 93 02/20/20 05:45 82 95 02/20/20 05:43 83 112/73 95 02/20/20 05:40 15 02/20/20 05:30 66 94 02/20/20 05:15 63 94 02/20/20 05:00 70 94 02/20/20 04:45 68 95 02/20/20 04:44 63 103/63 96 02/20/20 04:30 71 96 02/20/20 04:15 70 96 02/20/20 04:00 82 96 02/20/20 03:45 74 96 02/20/20 03:44 82 124/74 94 02/20/20 03:30 69 96 02/20/20 03:15 80 95 02/20/20 03:00 76 96 02/20/20 02:45 69 97 02/20/20 02:44 70 104/61 96 02/20/20 02:30 76 95 02/20/20 02:20 76 15 94 02/20/20 02:15 85 92 02/20/20 02:00 76 92 02/20/20 01:45 76 100 02/20/20 01:44 80 128/72 99 02/20/20 01:30 75 92 02/20/20 01:15 75 95 02/20/20 01:00 87 90 02/20/20 00:45 82 91 02/20/20 00:43 86 107/70 91 02/20/20 00:30 79 94 02/20/20 00:15 75 94 PG Care Time/CCT Total # of Minutes Spent Total Time Spent with Patient: Total time spent is greater than 50% in coordination of care (as documented) at patient's floor/unit and/or counseling patient: Coding Level of Care Code 76479 Initial Inpt Care Lvl 3 Diagnoses ARDS (adult respiratory distress syndrome) J80 Septic shock A41.9; R65.21 S/P admission to ICU (intensive care unit) GI bleed K92.2 Acute kidney injury superimposed on CKD N17.9; N18.9 Incarcerated ventral hernia K43.6 Altered mental status R41.82
[2020-02-20] MEDS ORDERED: STAT IV Infusion **Titration per Protocol STA ×2 (13:37→20:02)
--- NOTE | 2020-02-20 13:39 | Cardiology Progress Note ---
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 Ejection fraction is moderately reduced at 35 to 40%. Continue to monitor urinary output, renal function, and fluid balance daily. Hold diuretic therapy today. No recurrent atrial fibrillation overnight. Continue IV metoprolol as needed. Consider addition of low-dose metoprolol 2.5 mg IV every 6 hours if salvos of atrial fibrillation become more frequent. Potassium and magnesium supplemented appropriately. Hemodynamics improved with discontinuation of IV vasopressors. Ventilator management per critical care. Patient is not a candidate for anticoagulation, antiplatelet, or statin therapy at this time. Subjective Patient seen and examined the bedside. Sedation and IV vasopressors discontinued. Blood pressure remained stable. Patient is not following command. Apneic episodes noted. Neurology consultation requested for assessment of neuro status. Nursing reports occasional rust colored sputum with suctioning. Patient will not be extubated today due to mental status. Repeat breathing trial plan for a.m. No recurrent atrial fibrillation on telemetry. Occasional episodes of bradycardia noted. Review of Systems Review of Systems: Unobtainable due to cognitive status and Unobtainable due to endotracheal tube Physical Exam Constitutional: + ill appearing; no acute distress ENMT: + Endotracheal and orogastric tube. Respiratory: Auscultation: no crackles, no rales, no rhonchi and no wheezes Cardiovascular: Rate/Rhythm: regular rate and regular rhythm Heart Sounds: normal S1 and normal S2; no murmur Gastrointestinal (Abdomen): Inspection/Auscultation: abdomen not distended Percussion/Palpation: abdomen soft; no guarding and abdomen not rigid Skin: no rashes, warm and dry Neurologic: Patient's eyes are open with roving eye movement. He does not follow commands. Results & Data Vital Signs (Past 12 Hours) Vital Signs Pulse Resp BP Pulse Ox 02/20/20 10:44 85 95/50 L 92 02/20/20 10:40 85 7 L 91 02/20/20 09:44 81 99/60 L 93 02/20/20 08:44 64 98/60 L 95 02/20/20 08:00 72 02/20/20 07:55 68 15 94 02/20/20 07:43 67 99/56 L 90 02/20/20 06:51 73 106/61 87 L 02/20/20 06:30 85 94 02/20/20 06:15 88 88 L 02/20/20 06:00 90 93 02/20/20 05:45 82 95 02/20/20 05:43 83 112/73 95 02/20/20 05:40 15 02/20/20 05:30 66 94 02/20/20 05:15 63 94 02/20/20 05:00 70 94 02/20/20 04:45 68 95 02/20/20 04:44 63 103/63 96 02/20/20 04:30 71 96 02/20/20 04:15 70 96 02/20/20 04:00 82 96 02/20/20 03:45 74 96 02/20/20 03:44 82 124/74 94 02/20/20 03:30 69 96 02/20/20 03:15 80 95 02/20/20 03:00 76 96 02/20/20 02:45 69 97 02/20/20 02:44 70 104/61 96 02/20/20 02:30 76 95 02/20/20 02:20 76 15 94 02/20/20 02:15 85 92 02/20/20 02:00 76 92 02/20/20 01:45 76 100 02/20/20 01:44 80 128/72 99
[2020-02-20] MEDS: DEXMEDETOMIDINE HCL 200 MCG in SODIUM CHLORIDE 0.9% 48 ML IV SCH ×2 (14:09→18:15)
--- NOTE | 2020-02-20 15:16 | Hospitalist Progress Note ---
Date of Service February 20, 2020 Assessment & Plan (1) Incarcerated ventral hernia: (2) SBO (small bowel obstruction): Present on admission with altered mental status abdominal distention associated with vomiting CT abd/pelvis showed highly concerning for a high-grade partial or complete sma ll bowel obstruction. This may be due to interval development of a herniated short segment of small bowel within the ventral hernia. KUB showed small bowel obstruction. Surgery on board S/P day#4 Open Ventral Hernia Repair and release of small bowel obstruction by dr. Shafer Intubated on vent support Seems to develop recurrent ventral hernia No emergent surgical intervention required for now as per surgery Starting on tube feeding Continue PPI drip and IV Zosyn (3) Acute hepatic encephalopathy: CT head showed no acute intracranial abnormality Sedated with fentanyl drip currently and required vent support Ammonia level on admission 90, then dropped to 40 Neuro on board If mental status does not improve, plan to get a MRI of the brain Continue Lactulose Starting on high dose IV thiamine (4) NSTEMI (non-ST elevated myocardial infarction): Troponin on admission wnl, that peaked to 7.5, now trending down to 4 EKG showed no acute ischemia ECHO done showed hypokinesis to akinesis with sparing of the basal segment with EF 35-40 % Finding suggestive of a stress-induced cardiomyopathy with left ventricular apical ballooning pattern rather than an ST segment elevation myocardial infarction Cardiology on board No antiplatelet therapy due to GI bleed Continue monitor closely (5) Acute upper GI bleed: Noted coffee ground emesis in ER. Hgb on admission 12.9 Hgb 8.6 today GI on board On Protonix drip Octreotide was discontinued Stable (6) Aspiration pneumonia: ARDS CXR showed diffuse bilateral parenchymal infiltrative change Elevated lactic acid, WBC and procalcitonin Intubated on vent support Continue IV Zosyn and IV decadron (7) Acute kidney injury superimposed on CKD: BUN: 19, Cr: 1.6. Recent baseline Cr~1.1, was up to 1.3 in 2019 Monitor renal functions (8) Cirrhosis: H/O Cirrhosis with ascites. S/P TIPS in 2019. Requires recurrent paracentesis. (9) Paroxysmal A-fib: No further episode of afib Not on anticoagulation secondary to recurrent paracentesis. consider low dose IV metoprolol prn Will keep K above 4 and Mg above 2 cardiology on board DVT px on SCD due to GI bleed CODE STATUS FULL CODE Admission and Anticipated Discharge Date Admission Date: February 16, 2020 Subjective Pt was seen and examined Intubated on Vent support Sedation and pressor have been off Seems to follow simple commands Does not seem to be in pain Physical Exam Physical Exam: General- on mechanical vent support Head- atraumatic Eyes- PERRL, EOMI, ENT- intubated Neck- supple, no JVD Lungs- no wheezing Heart- regular rhythm; no murmur Abdomen- Hypoactive bowel sound, Incision with milagros, no drainage, + ventral hernia Extremities- no calf tenderness Neuro- moves all 4 extremities Skin- warm & dry Results & Data Results & Data ([facility]) Vital Signs (Past 12 Hours) Vital Signs Pulse Resp BP Pulse Ox 02/20/20 13:50 85 19 92 02/20/20 10:44 85 95/50 L 92 02/20/20 10:40 85 7 L 91 02/20/20 09:44 81 99/60 L 93 02/20/20 08:44 64 98/60 L 95 02/20/20 08:00 72 02/20/20 07:55 68 15 94 02/20/20 07:43 67 99/56 L 90 02/20/20 06:51 73 106/61 87 L 02/20/20 06:30 85 94 02/20/20 06:15 88 88 L 02/20/20 06:00 90 93 02/20/20 05:45 82 95 02/20/20 05:43 83 112/73 95 02/20/20 05:40 15 02/20/20 05:30 66 94 02/20/20 05:15 63 94 02/20/20 05:00 70 94 02/20/20 04:45 68 95 02/20/20 04:44 63 103/63 96 02/20/20 04:30 71 96 02/20/20 04:15 70 96 02/20/20 04:00 82 96 02/20/20 03:45 74 96 02/20/20 03:44 82 124/74 94 02/20/20 03:30 69 96 02/20/20 03:15 80 95 02/20/20 03:00 76 96
--- NOTE | 2020-02-20 17:42 | Magnetic Resonance Report ---
MR brain MS wo/w con CLINICAL HISTORY: history of head and neck ca, encephalopathic mental status change COMPARISON STUDY: No previous studies for comparison. TECHNIQUE: Utilizing a 1.5 Aydee magnet and dedicated coil, multiplanar, multiecho imaging of the br ain was performed pre and postcontrast administration. IV administration of 8 mL of Gadavist contras t was uneventful. FINDINGS: Diffusion-weighted images show no evidence for an acute ischemic insult. Findings of age-re lated atrophy as well as chronic small vessel changes are present. The sella and parasellar regions a re unremarkable. The ventricular system is midline. Postcontrast images are negative for abnormal postcontrast enhancement. IMPRESSION: 1. No evidence for an acute ischemic event. 2. Age-related chronic small vessel change and atrophy. 3. No evidence for abnormal postcontrast enhancement. ACT 112: Negative or not required by law. The above report was generated using voice recognition software. It may contain grammatical, syntax or spelling errors. Electronically signed by: Cuong Irsael M.D. 02/20/2020 5:41 PM
[2020-02-20] MEDS ORDERED: GADOBUTROL 7.5ML VIAL IV PRN (17:54)
[2020-02-20] MEDS: propofoL 1,000 MG/100 ML VIAL IV SCH (20:36)
[2020-02-20] MEDS: THIAMINE HCL 500 MG in 0.9 % SODIUM CHLORIDE 100 ML IV SCH (20:38)
--- NOTE | 2020-02-20 22:22 | Surgery Progress Note ---
Date of Service I got a call from ICU attending, pt had some fluid came out from abdominal incision site, pt is still on vent. February 20, 2020 Assessment & Plan (1) Postoperative follow-up: F/U S/P repair incarcerated ventral hernia, pt is still on vent, possible, pt develops recurrent ventral hernia, not incarcerated now, reducible, no emergent surgical intervention now, start tube feeding today, possible remove rectal tube, will F/U 02/20/2020 11:01AM stable, plan extubate pt today, pull out oral feeding tube, apply abdominal hamilton, pt can have clear diet after extubation, no emergent surgical indication to repair abdominal hernia now, will F/U 02/20/20 10 : 19 PM follow up abdominal hernia, stable, reducible, abdomen soft, no redness, no incarcerated hernia now, no emergent surgery repair abdominal hernia now, will D/W DR. Shafer in am, Supervising Physician Co-Signing Physician Notes I have seen and examined the patient on 02/16 with CHRISTOFER Delacruz whose note reflects our findings and plan. Subjective Pt was seen and examined Intubated on Vent support Sedation and pressor have been off Seems to follow simple commands Does not seem to be in pain Physical Exam Gastrointestinal (Abdomen): Inspection/Auscultation: + abdominal surgical scar Percussion/Palpation: abdomen soft and + hernia recurrent hernia on incision site, the size about 2x3cm, soft, reducible, minimal fluid comes out from incision site, pink color, no pus seen. no redness, on incision site, the whole abdomen is soft, no distend, BS + Results & Data Vital Signs (Past 12 Hours) Vital Signs Pulse Resp BP Pulse Ox 02/20/20 20:00 77 139/60 02/20/20 19:25 82 23 89 L 02/20/20 18:48 69 83/48 L 89 L 02/20/20 18:27 66 16 97 02/20/20 18:18 67 90/48 L 93 02/20/20 17:48 70 90/54 L 02/20/20 16:00 78 02/20/20 15:48 75 89/56 L 90 02/20/20 15:17 75 95/58 L 97 02/20/20 14:47 80 97/59 L 92 02/20/20 14:04 83 89/57 L 91 02/20/20 13:50 85 19 92 02/20/20 13:49 78 90/59 L 91 02/20/20 13:34 86 90/50 L 92 02/20/20 13:19 85 95/50 L 93 02/20/20 13:03 76 91/53 L 93 02/20/20 12:48 87 82/53 L 93 02/20/20 12:34 91 H 83/51 L 91 02/20/20 12:18 85 88/53 L 91 02/20/20 12:03 79 91/53 L 93 02/20/20 11:48 88 81/51 L 92 02/20/20 11:19 89 88/48 L 93 02/20/20 11:04 80 93/56 L 92 02/20/20 10:44 85 95/50 L 92 02/20/20 10:40 85 7 L 91
[2020-02-21] MEDS: INSULIN ASPART 100 UNITS/ML 3 ML PEN SC SCH ×6 (00:52→22:28)
[2020-02-21] MEDS: PIPERACILLIN/TAZOBACTAM 4.5 GM in DEXTROSE 5% 100 ML IV SCH ×3 (01:36→17:34)
[2020-02-21 04:18] LABS: Basophils # (auto) 0.01 K/uL (0-0.2); Basophils % (auto) 0.1 %; Hematocrit (blood only) 23.8 % (42-52); Hemoglobin 8.1 g/dL (14.0-18.0); Immature Granulocytes # (auto) 0.06 K/uL (0.00-0.02); Immature Granulocytes % (auto) 0.5 %; Lymphocytes # (auto) 0.61 K/uL (1.2-3.4); Lymphocytes % (auto) 5.4 %; Mean Corpuscular Hemoglobin 32.1 pg (25-34); Mean Corpuscular Volume 94.4 fL (80-100); Mean Platelet Volume 9.7 fL (7.4-10.4); Monocytes # (auto) 0.71 K/uL (0.11-0.59); Monocytes % (auto) 6.3 %; Neutrophils # (auto) 9.84 K/uL (1.4-6.5); Neutrophils % (auto) 87.7 %; Platelet Count 145 K/uL (130-400); RDW Coefficient of Variation 14.8 % (11.5-14.5); RDW Standard Deviation 50.5 fL (36.4-46.3); Red Blood Count 2.52 M/uL (4.7-6.1); White Blood Count 11.23 K/uL (4.8-10.8)
[2020-02-21 04:29] LABS: INR 1.3 (0.9-1.1)
[2020-02-21] MEDS: PROPOFOL BOLUS FROM BAG IV PRN ×2 (04:30→07:25)
[2020-02-21] MEDS: THIAMINE HCL 500 MG in 0.9 % SODIUM CHLORIDE 100 ML IV SCH ×3 (04:31→19:56)
[2020-02-21 04:36] LABS: Albumin Level 2.1 gm/dl (3.4-5.0); BUN Creatinine Ratio 31.5 (10-20); Calcium 8.6 mg/dl (8.5-10.1); Creatinine Clr Calc Pharmacy 38.6 ml/min; Est GFR (African American) 60.1; Est GFR (Non-African American) 51.9; Magnesium 2.1 mg/dl (1.8-2.4); Potassium 3.7 mmol/L (3.5-5.1)
[2020-02-21 04:39] LABS: Albumin Globulin Ratio 0.7 (0.9-2); Bilirubin,Total 1.3 mg/dl (0.2-1); Phosphorus 2.1 mg/dl (2.5-4.9); Total Protein 5.1 gm/dl (6.4-8.2)
[2020-02-21 05:23] LABS: iSTAT Arterial Blood Gas HCO3 21 meg/L (19-24); iSTAT Arterial Blood Gas pCO2 32 mmHg (35-46); iSTAT Arterial Blood Gas pH 7.43 (7.35-7.45); iSTAT Arterial Blood Gas pO2 72 mmHg (80-95); iSTAT Carbon Dioxide 22 mmol/L (24-31); iSTAT FiO2 50 %; iSTAT Site Art Line
[2020-02-21] MEDS ORDERED: fentaNYL citrate 100 MCG/2 ML VIAL IV STA (07:17)
[2020-02-21] MEDS: DEXAMETHASONE SOD PHOSPHATE 20 MG in DEXTROSE 5% 25 ML IV SCH (07:49)
[2020-02-21] MEDS: PANTOprazole 40 MG in SYRINGE 0 ML IV SCH ×2 (07:49→22:29)
[2020-02-21] MEDS: LACTULOSE SYRUP 20 GM/30 ML UDC PO SCH ×2 (07:50→23:00)
--- NOTE | 2020-02-21 07:50 | XRay Report ---
XR chest 1V portable HISTORY: 80 years-old Male resp failure acute respiratory failure COMPARISON: Chest radiograph 02/20/2020 TECHNIQUE: Portable AP view of the chest FINDINGS: Cardiomediastinal and hilar silhouettes are unchanged. Endotracheal tube overlies the midline, 3.2 cm superior to the gareth. Right IJ central venous catheter appears unchanged. Enteric tube courses bel ow the diaphragm outside the [id number]. Extensive mixed interstitial and alveolar opacities are r edemonstrated and have worsened in the interval. Trace pleural effusions. No pneumothorax. Healed rem ote fracture deformity of the right mid clavicle. Degenerative changes of the shoulders and spine. IMPRESSION: 1. Lines and tubes as above. 2. Extensive bilateral mixed interstitial and alveolar opacities have slightly worsened in the interv al. Pulmonary edema versus multifocal pneumonia remain the differential considerations. 3. Trace pleural effusions. ACT 112: Negative or not required by law. The above report was generated using voice recognition software. It may contain grammatical, syntax o r spelling errors. Electronically signed by: John Razo M.D. 02/21/2020 7:49 AM
--- NOTE | 2020-02-21 09:57 | Critical Care Progress Note ---
Date of Service February 21, 2020 Assessment & Plan (1) Encephalopathy acute: (2) ARDS (adult respiratory distress syndrome): Reason Critically Ill: 80-year-old male postop day 5 status post reduction of incarcerated ventral hernia and release of small bowel obstruction, with multisystem organ dysfunction PLAN: Neuro: Acute encephalopathy: Multifactorial -Continue lactulose -Suspect baseline encephalopathy given status post TIPS Resp: Aspiration of gastric contents into airway Aspiration pneumonitis Acute respiratory distress syndrome Acute hypoxic respiratory failure -Increasing FiO2, frequent suctioning of secretions: Patient not ready for liberation from ventilator at this time CV: History paroxysmal atrial fibrillation: Anticoagulation contraindicated at this time Non-ST elevated myocardial infarction Cardiomyopathy -Discussed with cardiology today -Optimize electrolytes, will attempt to add metoprolol as tolerated Hypotension -Weaning vasoactive medication at this time however he is still r equiring it at baseline Fluids/Renal: Acute kidney injury: Resolved -Optimize electrolytes ID: Continue Zosyn: 7-day course Lidia albicans isolated from bronc: Consider this to be colonization GI/Nutrition: Trickle feeds Heme: Postop anemia DVT prophylaxis: Heparin subcu Endocrine: ICU hyperglycemia protocol Anticipate elevated blood sugars in the setting of high-dose steroids Vascular access: Right IJ Code Status: DNR in event of cardiac arrest, DO NOT INTUBATE in event of respiratory insufficiency, no escalation of care for high acuity/high risk procedures Disposition: Continue ICU (3) Septic shock: (4) Aspiration pneumonia: (5) Acute kidney injury superimposed on CKD: (6) Elevated INR: (7) S/P TIPS (transjugular intrahepatic portosystemic shunt): (8) Hepatic insufficiency: (9) Chronic liver disease and cirrhosis: Admission and Anticipated Discharge Date Admission Date: February 16, 2020 Supervising Physician Co-Signing Physician Notes I was able to have a Zoom meeting with the patient's oldest son and daughter. We discussed goals of care and prognosis. Patient is a former [employer] who is been fiercely independent and enjoys cutting his grass and living independently. Given his current medical status and need for rehabilitation if he is able to overcome this insult in the setting of significant chronic liver insufficiency all felt the patient would not want heroic measures undertaken in event of cardiac arrest and this was also confirmed with the patient's . In discussion of management of his hypoxic respiratory failure it was felt that the patient would not want to be reintubated in event of respiratory insufficiency. We will work to optimize the patient and give him every opportunity to succeed however we would not reintubate in event of respiratory insufficiency. Similarly they feel the patient would not want any escalation of care (high risk, invasive procedures at this time.) Our plan at this time is to continue her current level of care, I do not feel extubation would be prudent today and he would likely fail given the frequent suctioning and increasing oxygen requirements. Subjective No overnight events, sedation was changed yesterday for continued encephalopathy. Review of Systems Review of Systems: Unobtainable due to endotracheal tube and Unobtainable due to reduced consciousness Physical Exam Physical Exam: General: Somnolent, GCS Glascow Coma Scale: Eyes: 3, Verbal 1T, Motor 5, Total 9T. Skin: Warm, dry, Head: Atraumatic Ears, nose, mouth and throat: Obscured by endotracheal tube Cardiovascular: Increased capillary refill: Mild Respiratory: Coarse sounds bilaterally Gastrointestinal: Abdominal binder in place Musculoskeletal: No deformity Results & Data Results & Data ([facility]) Vital Signs (Past 12 Hours) Vital Signs Temp Pulse Resp BP Pulse Ox 02/21/20 08:25 70 100/52 L 94 02/21/20 08:14 36.4 C L 64 104/60 97 02/21/20 08:00 120 H 02/21/20 07:55 70 100/52 L 99 02/21/20 07:30 82 02/21/20 07:15 87 17 98 02/21/20 07:00 99 H 91 02/21/20 06:09 80 110/62 93 02/21/20 06:00 68 97 02/21/20 05:45 81 95 02/21/20 05:30 81 93 02/21/20 05:15 75 92 02/21/20 05:09 78 100/58 L 91 02/21/20 05:00 82 22 92 02/21/20 04:45 89 88 L 02/21/20 04:30 97 H 91 02/21/20 04:15 87 91 02/21/20 04:09 68 115/66 98 02/21/20 04:00 36.8 C 75 92 02/21/20 03:45 68 95 02/21/20 03:30 63 95 02/21/20 03:15 68 94 02/21/20 03:10 67 95 02/21/20 03:09 68 100/56 L 95 02/21/20 03:00 72 96 02/21/20 02:45 65 96 02/21/20 02:30 64 95 02/21/20 02:15 67 96 02/21/20 02:09 65 92/58 L 96 02/21/20 02:05 59 L 16 97 02/21/20 02:00 60 96 02/21/20 01:45 72 96 02/21/20 01:30 69 102/56 L 97 02/21/20 01:15 75 96 02/21/20 01:09 64 102/56 L 96 02/21/20 01:00 36.8 C 70 96 02/21/20 00:45 71 96 02/21/20 00:30 69 96 02/21/20 00:15 71 96 02/21/20 00:09 68 90/50 L 95 02/21/20 00:00 36.6 C 77 92 02/20/20 23:45 71 93 02/20/20 23:30 61 91 02/20/20 23:15 59 L 95 02/20/20 23:09 64 85/51 L 95 02/20/20 23:00 62 95 02/20/20 22:45 68 17 97 02/20/20 22:30 59 L 94 02/20/20 22:15 62 94 02/20/20 22:10 68 94 02/20/20 22:09 36.6 C 64 95/58 L 93 Laboratory Results 02/21/20 02/21/20 02/21/20 Range/Units 07:43 05:09 03:54 WBC (4.8-10.8) K/uL RBC (4.7-6.1) M/uL Hgb (14.0-18.0) g/dL Hct (42-52) % MCV (80-100) fL MCH (25-34) pg MCHC (32-36) g/dL RDW Std Deviation (36.4-46.3) fL RDW Coeff of Scott (11.5-14.5) % Plt Count (130-400) K/uL MPV (7.4-10.4) fL Immature Gran % (Auto) % Neut % (Auto) % Lymph % (Auto) % [place] % (Auto) % Eos % (Auto) % Baso % (Auto) % Immature Gran # (Auto) (0.00-0.02) K/uL Neut # (Auto) (1.4-6.5) K/uL Lymph # (Auto) (1.2-3.4) K/uL [place] # (Auto) (0.11-0.59) K/uL Eos # (Auto) (0-0.5) K/uL Baso # (Auto) (0-0.2) K/uL PT (9.0-12.0) Seconds INR (0.9-1.1) Sample Site Art Line POC pH 7.43 (7.35-7.45) POC pCO2 32 L (35-46) mmHg POC pO2 72 L (80-95) mmHg POC HCO3 21 (19-24) juve/L POC Total CO2 22 L (24-31) mmol/L POC Base Excess -3.0 (-9-1.8) juve/L POC ABG O2 Sat 95.0 (90-95) % Ml Test NA O2 Delivery Device Ventilator POC O2 Rate 14 Minute Ventilation 11.9 POC FiO2 50 % Tidal Volume 420 PEEP 5 Sodium 142 (136-145) mmol/L Potassium 3.7 (3.5-5.1) mmol/L Chloride 111 H (98-107) mmol/L Carbon Dioxide 23 (21-32) mmol/L Anion Gap 8.0 (3-11) BUN 41 H (7-18) mg/dl Creatinine 1.30 (0.6-1.4) mg/dl Est Cr Clr Drug Dosing 38.6 ml/min Est GFR ( Amer) 60.1 Est GFR (Non-Af Amer) 51.9 BUN/Creatinine Ratio 31.5 H (10-20) Glucose 168 H (70-99) mg/dl POC Glucose (other) 127 H (70-99) mg/dl Calcium 8.6 (8.5-10.1) mg/dl Phosphorus 2.1 L (2.5-4.9) mg/dl Magnesium 2.1 (1.8-2.4) mg/dl Total Bilirubin 1.3 H (0.2-1) mg/dl AST 43 H (15-37) U/L ALT 23 (12-78) U/L Alkaline Phosphatase 47 (45-117) U/L Total Protein 5.1 L (6.4-8.2) gm/dl Albumin 2.1 L (3.4-5.0) gm/dl Globulin 3.0 (2.5-4.0) gm/dl Albumin/Globulin Ratio 0.7 L (0.9-2) 02/21/20 02/21/20 02/20/20 Range/Units 03:54 03:54 20:26 WBC 11.23 H (4.8-10.8) K/uL RBC 2.52 L (4.7-6.1) M/uL Hgb 8.1 L (14.0-18.0) g/dL Hct 23.8 L (42-52) % MCV 94.4 (80-100) fL MCH 32.1 (25-34) pg MCHC 34.0 (32-36) g/dL RDW Std Deviation 50.5 H (36.4-46.3) fL RDW Coeff of Scott 14.8 H (11.5-14.5) % Plt Count 145 (130-400) K/uL MPV 9.7 (7.4-10.4) fL Immature Gran % (Auto) 0.5 % Neut % (Auto) 87.7 % Lymph % (Auto) 5.4 % [place] % (Auto) 6.3 % Eos % (Auto) 0.0 % Baso % (Auto) 0.1 % Immature Gran # (Auto) 0.06 H (0.00-0.02) K/uL Neut # (Auto) 9.84 H (1.4-6.5) K/uL Lymph # (Auto) 0.61 L (1.2-3.4) K/uL [place] # (Auto) 0.71 H (0.11-0.59) K/uL Eos # (Auto) 0.00 (0-0.5) K/uL Baso # (Auto) 0.01 (0-0.2) K/uL PT 14.0 H (9.0-12.0) Seconds INR 1.3 H (0.9-1.1) Sample Site POC pH (7.35-7.45) POC pCO2 (35-46) mmHg POC pO2 (80-95) mmHg POC HCO3 (19-24) juve/L POC Total CO2 (24-31) mmol/L POC Base Excess (-9-1.8) juve/L POC ABG O2 Sat (90-95) % Lm Test O2 Delivery Device POC O2 Rate Minute Ventilation POC FiO2 % Tidal Volume PEEP Sodium (136-145) mmol/L Potassium (3.5-5.1) mmol/L Chloride (98-107) mmol/L Carbon Dioxide (21-32) mmol/L Anion Gap (3-11) BUN (7-18) mg/dl Creatinine (0.6-1.4) mg/dl Est Cr Clr Drug Dosing ml/min Est GFR ( Amer) Est GFR (Non-Af Amer) BUN/Creatinine Ratio (10-20) Glucose (70-99) mg/dl POC Glucose (other) 176 H (70-99) mg/dl Calcium (8.5-10.1) mg/dl Phosphorus (2.5-4.9) mg/dl Magnesium (1.8-2.4) mg/dl Total Bilirubin (0.2-1) mg/dl AST (15-37) U/L ALT (12-78) U/L Alkaline Phosphatase (45-117) U/L Total Protein (6.4-8.2) gm/dl Albumin (3.4-5.0) gm/dl Globulin (2.5-4.0) gm/dl Albumin/Globulin Ratio (0.9-2) 02/20/20 02/20/20 Range/Units 17:51 11:55 WBC (4.8-10.8) K/uL RBC (4.7-6.1) M/uL Hgb (14.0-18.0) g/dL Hct (42-52) % MCV (80-100) fL MCH (25-34) pg MCHC (32-36) g/dL RDW Std Deviation (36.4-46.3) fL RDW Coeff of Scott (11.5-14.5) % Plt Count (130-400) K/uL MPV (7.4-10.4) fL Immature Gran % (Auto) % Neut % (Auto) % Lymph % (Auto) % [place] % (Auto) % Eos % (Auto) % Baso % (Auto) % Immature Gran # (Auto) (0.00-0.02) K/uL Neut # (Auto) (1.4-6.5) K/uL Lymph # (Auto) (1.2-3.4) K/uL [place] # (Auto) (0.11-0.59) K/uL Eos # (Auto) (0-0.5) K/uL Baso # (Auto) (0-0.2) K/uL PT (9.0-12.0) Seconds INR (0.9-1.1) Sample Site POC pH (7.35-7.45) POC pCO2 (35-46) mmHg POC pO2 (80-95) mmHg POC HCO3 (19-24) juve/L POC Total CO2 (24-31) mmol/L POC Base Excess (-9-1.8) juve/L POC ABG O2 Sat (90-95) % Lm Test O2 Delivery Device POC O2 Rate Minute Ventilation POC FiO2 % Tidal Volume PEEP Sodium (136-145) mmol/L Potassium (3.5-5.1) mmol/L Chloride (98-107) mmol/L Carbon Dioxide (21-32) mmol/L Anion Gap (3-11) BUN (7-18) mg/dl Creatinine (0.6-1.4) mg/dl Est Cr Clr Drug Dosing ml/min Est GFR ( Amer) Est GFR (Non-Af Amer) BUN/Creatinine Ratio (10-20) Glucose (70-99) mg/dl POC Glucose (other) 154 H 163 H (70-99) mg/dl Calcium (8.5-10.1) mg/dl Phosphorus (2.5-4.9) mg/dl Magnesium (1.8-2.4) mg/dl Total Bilirubin (0.2-1) mg/dl AST (15-37) U/L ALT (12-78) U/L Alkaline Phosphatase (45-117) U/L Total Protein (6.4-8.2) gm/dl Albumin (3.4-5.0) gm/dl Globulin (2.5-4.0) gm/dl Albumin/Globulin Ratio (0.9-2) Diagnostic Findings I have reviewed his chest x-ray dated December 23, 2019 Coding Level of Care Code Critical Care ea addt'l 30 min Diagnoses Encephalopathy acute G93.40 ARDS (adult respiratory distress syndrome) J80 Septic shock A41.9; R65.21 Aspiration pneumonia J69.0 Acute kidney injury superimposed on CKD N17.9; N18.9 Elevated INR R79.1 S/P TIPS (transjugular intrahepatic portosystemic shunt) Z95.828 Hepatic insufficiency K72.90 Chronic liver disease and cirrhosis K74.60; K76.9 Time Spent (min) 125 Comment I have personally spent 125 minutes of critical care time in the direct management of this patient. This is a life/limb threatening event. This includes time spent evaluating patient, direct bedside care, chart review, placing orders, interpretation of diagnostic studies, discussion with consultants, patient, and/or family members regarding treatment decisions, as well as other required patient management activities. This time is exclusive of all separately billable procedures, and teaching time and separate from and in addition to any other critical care service time.
--- NOTE | 2020-02-21 10:09 | Surgery Progress Note ---
Date of Service February 21, 2020 Assessment & Plan (1) SBO (small bowel obstruction): Postoperative day #5 status post reduction of incarcerated ventral hernia with release of small bowel obstruction Remains on ventilator Mental status change, deteriorating pulmonary status, CKD, hemodynamic i nstability all as per internal medicine team No evidence of continuing incarceration of the hernia. The area is flat now but draining. This could be from seroma or from ascites. Would continue with wound care Prognosis is poor Subjective Postoperative day #5 status post repair of incarcerated ventral hernia Patient remains ventilated and sedated He continues to require pressors He had had some drainage and bulging in the area of the incision That was reduced and has not returned although there is still some serosanguineous drainage from the incision Physical Exam Gastrointestinal (Abdomen): Inspection/Auscultation: + abdominal surgical incision (Small amount of serosanguineous drainage. More to the dark red side. Incision area is flat although there is some mild amount of fluctuance consistent with either seroma or ascites fluid beneath the skin. There is no erythema); abdomen not distended Percussion/Palpation: abdomen soft; abdomen nontender (Difficult to assess due to sedation but there is no reaction to palpation) Results & Data Vital Signs (Past 12 Hours) Vital Signs Temp Pulse Resp BP Pulse Ox 02/21/20 08:25 70 100/52 L 94 02/21/20 08:14 36.4 C L 64 104/60 97 02/21/20 08:00 120 H 02/21/20 07:55 70 100/52 L 99 02/21/20 07:30 82 02/21/20 07:15 87 17 98 02/21/20 07:00 99 H 91 02/21/20 06:09 80 110/62 93 02/21/20 06:00 68 97 02/21/20 05:45 81 95 02/21/20 05:30 81 93 02/21/20 05:15 75 92 02/21/20 05:09 78 100/58 L 91 02/21/20 05:00 82 22 92 02/21/20 04:45 89 88 L 02/21/20 04:30 97 H 91 02/21/20 04:15 87 91 02/21/20 04:09 68 115/66 98 02/21/20 04:00 36.8 C 75 92 02/21/20 03:45 68 95 02/21/20 03:30 63 95 02/21/20 03:15 68 94 02/21/20 03:10 67 95 02/21/20 03:09 68 100/56 L 95 02/21/20 03:00 72 96 02/21/20 02:45 65 96 02/21/20 02:30 64 95 02/21/20 02:15 67 96 02/21/20 02:09 65 92/58 L 96 02/21/20 02:05 59 L 16 97 02/21/20 02:00 60 96 02/21/20 01:45 72 96 02/21/20 01:30 69 102/56 L 97 02/21/20 01:15 75 96 02/21/20 01:09 64 102/56 L 96 02/21/20 01:00 36.8 C 70 96 02/21/20 00:45 71 96 02/21/20 00:30 69 96 02/21/20 00:15 71 96 02/21/20 00:09 68 90/50 L 95 02/21/20 00:00 36.6 C 77 92 02/20/20 23:45 71 93 02/20/20 23:30 61 91 02/20/20 23:15 59 L 95 02/20/20 23:09 64 85/51 L 95 02/20/20 23:00 62 95 02/20/20 22:45 68 17 97 02/20/20 22:30 59 L 94 02/20/20 22:15 62 94 02/20/20 22:10 68 94 02/20/20 22:09 36.6 C 64 95/58 L 93 Laboratory Results 02/21/20 02/21/20 02/21/20 Range/Units 07:43 05:09 03:54 WBC (4.8-10.8) K/uL RBC (4.7-6.1) M/uL Hgb (14.0-18.0) g/dL Hct (42-52) % MCV (80-100) fL MCH (25-34) pg MCHC (32-36) g/dL RDW Std Deviation (36.4-46.3) fL RDW Coeff of Scott (11.5-14.5) % Plt Count (130-400) K/uL MPV (7.4-10.4) fL Immature Gran % (Auto) % Neut % (Auto) % Lymph % (Auto) % [place] % (Auto) % Eos % (Auto) % Baso % (Auto) % Immature Gran # (Auto) (0.00-0.02) K/uL Neut # (Auto) (1.4-6.5) K/uL Lymph # (Auto) (1.2-3.4) K/uL [place] # (Auto) (0.11-0.59) K/uL Eos # (Auto) (0-0.5) K/uL Baso # (Auto) (0-0.2) K/uL PT (9.0-12.0) Seconds INR (0.9-1.1) Sample Site Art Line POC pH 7.43 (7.35-7.45) POC pCO2 32 L (35-46) mmHg POC pO2 72 L (80-95) mmHg POC HCO3 21 (19-24) juve/L POC Total CO2 22 L (24-31) mmol/L POC Base Excess -3.0 (-9-1.8) juve/L POC ABG O2 Sat 95.0 (90-95) % Lm Test NA O2 Delivery Device Ventilator POC O2 Rate 14 Minute Ventilation 11.9 POC FiO2 50 % Tidal Volume 420 PEEP 5 Sodium 142 (136-145) mmol/L Potassium 3.7 (3.5-5.1) mmol/L Chloride 111 H (98-107) mmol/L Carbon Dioxide 23 (21-32) mmol/L Anion Gap 8.0 (3-11) BUN 41 H (7-18) mg/dl Creatinine 1.30 (0.6-1.4) mg/dl Est Cr Clr Drug Dosing 38.6 ml/min Est GFR ( Amer) 60.1 Est GFR (Non-Af Amer) 51.9 BUN/Creatinine Ratio 31.5 H (10-20) Glucose 168 H (70-99) mg/dl POC Glucose (other) 127 H (70-99) mg/dl Calcium 8.6 (8.5-10.1) mg/dl Phosphorus 2.1 L (2.5-4.9) mg/dl Magnesium 2.1 (1.8-2.4) mg/dl Total Bilirubin 1.3 H (0.2-1) mg/dl AST 43 H (15-37) U/L ALT 23 (12-78) U/L Alkaline Phosphatase 47 (45-117) U/L Total Protein 5.1 L (6.4-8.2) gm/dl Albumin 2.1 L (3.4-5.0) gm/dl Globulin 3.0 (2.5-4.0) gm/dl Albumin/Globulin Ratio 0.7 L (0.9-2) 02/21/20 02/21/20 02/20/20 Range/Units 03:54 03:54 20:26 WBC 11.23 H (4.8-10.8) K/uL RBC 2.52 L (4.7-6.1) M/uL Hgb 8.1 L (14.0-18.0) g/dL Hct 23.8 L (42-52) % MCV 94.4 (80-100) fL MCH 32.1 (25-34) pg MCHC 34.0 (32-36) g/dL RDW Std Deviation 50.5 H (36.4-46.3) fL RDW Coeff of Scott 14.8 H (11.5-14.5) % Plt Count 145 (130-400) K/uL MPV 9.7 (7.4-10.4) fL Immature Gran % (Auto) 0.5 % Neut % (Auto) 87.7 % Lymph % (Auto) 5.4 % [place] % (Auto) 6.3 % Eos % (Auto) 0.0 % Baso % (Auto) 0.1 % Immature Gran # (Auto) 0.06 H (0.00-0.02) K/uL Neut # (Auto) 9.84 H (1.4-6.5) K/uL Lymph # (Auto) 0.61 L (1.2-3.4) K/uL [place] # (Auto) 0.71 H (0.11-0.59) K/uL Eos # (Auto) 0.00 (0-0.5) K/uL Baso # (Auto) 0.01 (0-0.2) K/uL PT 14.0 H (9.0-12.0) Seconds INR 1.3 H (0.9-1.1) Sample Site POC pH (7.35-7.45) POC pCO2 (35-46) mmHg POC pO2 (80-95) mmHg POC HCO3 (19-24) juve/L POC Total CO2 (24-31) mmol/L POC Base Excess (-9-1.8) juve/L POC ABG O2 Sat (90-95) % Lm Test O2 Delivery Device POC O2 Rate Minute Ventilation POC FiO2 % Tidal Volume PEEP Sodium (136-145) mmol/L Potassium (3.5-5.1) mmol/L Chloride (98-107) mmol/L Carbon Dioxide (21-32) mmol/L Anion Gap (3-11) BUN (7-18) mg/dl Creatinine (0.6-1.4) mg/dl Est Cr Clr Drug Dosing ml/min Est GFR ( Amer) Est GFR (Non-Af Amer) BUN/Creatinine Ratio (10-20) Glucose (70-99) mg/dl POC Glucose (other) 176 H (70-99) mg/dl Calcium (8.5-10.1) mg/dl Phosphorus (2.5-4.9) mg/dl Magnesium (1.8-2.4) mg/dl Total Bilirubin (0.2-1) mg/dl AST (15-37) U/L ALT (12-78) U/L Alkaline Phosphatase (45-117) U/L Total Protein (6.4-8.2) gm/dl Albumin (3.4-5.0) gm/dl Globulin (2.5-4.0) gm/dl Albumin/Globulin Ratio (0.9-2) 02/20/20 02/20/20 02/20/20 Range/Units 17:51 11:55 10:41 WBC (4.8-10.8) K/uL RBC (4.7-6.1) M/uL Hgb (14.0-18.0) g/dL Hct (42-52) % MCV (80-100) fL MCH (25-34) pg MCHC (32-36) g/dL RDW Std Deviation (36.4-46.3) fL RDW Coeff of Scott (11.5-14.5) % Plt Count (130-400) K/uL MPV (7.4-10.4) fL Immature Gran % (Auto) % Neut % (Auto) % Lymph % (Auto) % [place] % (Auto) % Eos % (Auto) % Baso % (Auto) % Immature Gran # (Auto) (0.00-0.02) K/uL Neut # (Auto) (1.4-6.5) K/uL Lymph # (Auto) (1.2-3.4) K/uL [place] # (Auto) (0.11-0.59) K/uL Eos # (Auto) (0-0.5) K/uL Baso # (Auto) (0-0.2) K/uL PT (9.0-12.0) Seconds INR (0.9-1.1) Sample Site Art Line POC pH 7.38 (7.35-7.45) POC pCO2 40 (35-46) mmHg POC pO2 58 L (80-95) mmHg POC HCO3 24 (19-24) juve/L POC Total CO2 25 (24-31) mmol/L POC Base Excess -1.0 (-9-1.8) juve/L POC ABG O2 Sat 89.0 L (90-95) % Lm Test NA O2 Delivery Device Ventilator POC O2 Rate Minute Ventilation POC FiO2 35 % Tidal Volume PEEP 5 Sodium (136-145) mmol/L Potassium (3.5-5.1) mmol/L Chloride (98-107) mmol/L Carbon Dioxide (21-32) mmol/L Anion Gap (3-11) BUN (7-18) mg/dl Creatinine (0.6-1.4) mg/dl Est Cr Clr Drug Dosing ml/min Est GFR ( Amer) Est GFR (Non-Af Amer) BUN/Creatinine Ratio (10-20) Glucose (70-99) mg/dl POC Glucose (other) 154 H 163 H (70-99) mg/dl Calcium (8.5-10.1) mg/dl Phosphorus (2.5-4.9) mg/dl Magnesium (1.8-2.4) mg/dl Total Bilirubin (0.2-1) mg/dl AST (15-37) U/L ALT (12-78) U/L Alkaline Phosphatase (45-117) U/L Total Protein (6.4-8.2) gm/dl Albumin (3.4-5.0) gm/dl Globulin (2.5-4.0) gm/dl Albumin/Globulin Ratio (0.9-2) Diagnostic Findings XR chest 1V portable HISTORY: 80 years-old Male resp failure acute respiratory failure COMPARISON: Chest radiograph 02/20/2020 TECHNIQUE: Portable AP view of the chest FINDINGS: Cardiomediastinal and hilar silhouettes are unchanged. Endotracheal tube overlies the midline, 3.2 cm superior to the gareth. Right IJ central venous catheter appears unchanged. Enteric tube courses below the diaphragm outside the [id number]. Extensive mixed interstitial and alveolar opacities are redemonstrated and have worsened in the interval. Trace pleural effusions. No pn eumothorax. Healed remote fracture deformity of the right mid clavicle. Degenerative changes of the shoulders and spine. IMPRESSION: 1. Lines and tubes as above. 2. Extensive bilateral mixed interstitial and alveolar opacities have slightly worsened in the interval. Pulmonary edema versus multifocal pneumonia remain the differential considerations. 3. Trace pleural effusions.
--- NOTE | 2020-02-21 10:45 | Neurology Progress Note ---
Date of Service February 21, 2020 Assessment & Plan (1) Encephalopathy acute: Multifactorial encephalopathy. No evidence for acute or subacute stroke on recently completed brain MRI. No evidence for metastatic lesion or disease. Nonconvulsive status epilepticus is probably unlikely and not strongly suspected in this patient. However, if his mental status fails to improve with ongoing medical treatment, would consider obtaining an EEG. Please contact me if I may be of further assistance. Admission and Anticipated Discharge Date Admission Date: February 16, 2020 Subjective Follow-up for encephalopathy The patient is a 80-year-old male who is seen yesterday by neurology, Dr. Wang, for assistance regarding management of encephalopathy. This patient has multiple acute medical comorbidities that are likely related to his altered mental status including respiratory failure due to pneumonia, acute upper GI bleeding, septic shock, acute on chronic kidney injury, acute hepatic encephalopathy, non-ST elevation SD, and recent surgical treatment for small bowel obstruction/incarcerated hernia. His past medical history is also notable for liver cirrhosis and squamous cell carcinoma of the head and neck. A contrast-enhanced brain MRI was completed yesterday. I reviewed the images as well as the radiologist interpretation of this test. There is no evidence of acute or subacute stroke. There is no abnormal postcontrast enhancement. There is atrophy and chronic small vessel ischemic disease. The patient remains in the intensive care unit, on the mechanical ventilator. He is sedated and unable to provide any additional information at this time. Review of Systems Review of Systems: Unobtainable due to endotracheal tube Results & Data ([facility]) Vital Signs (Past 12 Hours) Vital Signs Temp Pulse Resp BP Pulse Ox 02/21/20 08:25 70 100/52 L 94 02/21/20 08:14 36.4 C L 64 104/60 97 02/21/20 08:00 120 H 02/21/20 07:55 70 100/52 L 99 02/21/20 07:30 82 02/21/20 07:15 87 17 98 02/21/20 07:00 99 H 91 02/21/20 06:09 80 110/62 93 02/21/20 06:00 68 97 02/21/20 05:45 81 95 02/21/20 05:30 81 93 02/21/20 05:15 75 92 02/21/20 05:09 78 100/58 L 91 02/21/20 05:00 82 22 92 02/21/20 04:45 89 88 L 02/21/20 04:30 97 H 91 02/21/20 04:15 87 91 02/21/20 04:09 68 115/66 98 02/21/20 04:00 36.8 C 75 92 02/21/20 03:45 68 95 02/21/20 03:30 63 95 02/21/20 03:15 68 94 02/21/20 03:10 67 95 02/21/20 03:09 68 100/56 L 95 02/21/20 03:00 72 96 02/21/20 02:45 65 96 02/21/20 02:30 64 95 02/21/20 02:15 67 96 02/21/20 02:09 65 92/58 L 96 02/21/20 02:05 59 L 16 97 02/21/20 02:00 60 96 02/21/20 01:45 72 96 02/21/20 01:30 69 102/56 L 97 02/21/20 01:15 75 96 02/21/20 01:09 64 102/56 L 96 02/21/20 01:00 36.8 C 70 96 02/21/20 00:45 71 96 02/21/20 00:30 69 96 02/21/20 00:15 71 96 02/21/20 00:09 68 90/50 L 95 02/21/20 00:00 36.6 C 77 92 02/20/20 23:45 71 93 02/20/20 23:30 61 91 02/20/20 23:15 59 L 95 02/20/20 23:09 64 85/51 L 95 02/20/20 23:00 62 95 02/20/20 22:45 68 17 97 Laboratory Results WBC 11.23, hemoglobin 8.1, hematocrit 23.8, platelet count 145, sodium 142, potassium 3.7, BUN 41, creatinine 1.30, glucose 168, calcium 8.6, magnesium 2.1, total bilirubin 1.3, AST 43, ALT 23, and ammonia level from February 17 was 40, a TSH from February 15 was 7.550, free T4 was 1 Diagnostic Findings Contrast-enhanced brain MRI was completed yesterday. Results are as described above. I reviewed the images as well as the radiologist interpretation of this test. Exam (Neuro) Physical Exam: The patient is in the intensive care unit on the mechanical ventilator. He is sedated. He does not open his eyes or follow commands. He will withdraw all 4 limbs to noxious stimulation. No gaze deviation observed. No abnormal movements or dystonic posturing observed. Pupils are minimally reactive to light. Corneal reflexes intact bilaterally. I am unable to elicit oculocephalic reflexes. Coding Level of Care Code 90383 Subseq Hosp Care Lvl 2 Diagnoses Encephalopathy acute G93.40
--- NOTE | 2020-02-21 11:07 | Cardiology Progress Note ---
Date of Service February 21, 2020 Assessment & Plan (1) Paroxysmal A-fib: (2) NSTEMI (non-ST elevated myocardial infarction): (3) Septic shock: (4) Aspiration pneumonia: (5) ARDS (adult respiratory distress syndrome): (6) Upper GI bleed: (7) Anemia: (8) Incarcerated umbilical hernia: NSTEMI/Ischemic heart disease versus stress-induced cardiomyopathy noted on admission. Ejection fraction is moderately reduced at 35 to 40%. Continue to monitor urinary output, renal function, and fluid balance daily. Diuretic therapy on hold. No recurrent atrial fibrillation overnight. Continue IV metoprolol as needed. Consider addition of low-dose metoprolol 2.5 mg IV every 6 hours if salvos of atrial fibrillation become more frequent. Potassium and magnesium supplemented appropriately. Hemoglobin trending downward (8.1 today). Continue to monitor. Recommend maintaining hemoglobin greater than 8.0 gm/dl. Patient is not a candidate for anticoagulation, antiplatelet, or statin therapy at this time. Subjective Patient seen and examined at the bedside. IV vasopressors therapy restarted overnight. Sedation restarted as well. No recurrent atrial fibrillation on telemetry. No other concerns per discussion with nursing. Review of Systems Review of Systems: Unobtainable due to endotracheal tube Physical Exam Constitutional: + ill appearing; no acute distress Respiratory: Auscultation: no crackles, no rales, no rhonchi and no wheezes Cardiovascular: Rate/Rhythm: regular rate and regular rhythm Heart Sounds: normal S1 and normal S2; no murmur Gastrointestinal (Abdomen): Inspection/Auscultation: abdomen not distended Percussion/Palpation: abdomen soft; no guarding and abdomen not rigid Skin: no rashes, warm and dry Neurologic: moves all extremities Sedated on ventilator. Patient does not follow commands. Results & Data Vital Signs (Past 12 Hours) Vital Signs Temp Pulse Resp BP Pulse Ox 02/21/20 08:25 70 100/52 L 94 02/21/20 08:14 36.4 C L 64 104/60 97 02/21/20 08:00 120 H 02/21/20 07:55 70 100/52 L 99 02/21/20 07:30 82 02/21/20 07:15 87 17 98 02/21/20 07:00 99 H 91 02/21/20 06:09 80 110/62 93 02/21/20 06:00 68 97 02/21/20 05:45 81 95 02/21/20 05:30 81 93 02/21/20 05:15 75 92 02/21/20 05:09 78 100/58 L 91 02/21/20 05:00 82 22 92 02/21/20 04:45 89 88 L 02/21/20 04:30 97 H 91 02/21/20 04:15 87 91 02/21/20 04:09 68 115/66 98 02/21/20 04:00 36.8 C 75 92 02/21/20 03:45 68 95 02/21/20 03:30 63 95 02/21/20 03:15 68 94 02/21/20 03:10 67 95 02/21/20 03:09 68 100/56 L 95 02/21/20 03:00 72 96 02/21/20 02:45 65 96 02/21/20 02:30 64 95 02/21/20 02:15 67 96 02/21/20 02:09 65 92/58 L 96 02/21/20 02:05 59 L 16 97 02/21/20 02:00 60 96 02/21/20 01:45 72 96 02/21/20 01:30 69 102/56 L 97 02/21/20 01:15 75 96 02/21/20 01:09 64 102/56 L 96 02/21/20 01:00 36.8 C 70 96 02/21/20 00:45 71 96 02/21/20 00:30 69 96 02/21/20 00:15 71 96 02/21/20 00:09 68 90/50 L 95 02/21/20 00:00 36.6 C 77 92 02/20/20 23:45 71 93 02/20/20 23:30 61 91 02/20/20 23:15 59 L 95 02/20/20 23:09 64 85/51 L 95
[2020-02-21] MEDS ORDERED: MoRPHine SULFATE 2 MG/ML CARP IV STA (11:35)
[2020-02-21] MEDS ORDERED: POTASSIUM PHOS 3 MMOL/1 ML INFUSION IV STA (11:39)
[2020-02-21] MEDS ORDERED: STAT IV Infusion **Titration per Protocol STA (11:40)
[2020-02-21] MEDS ORDERED: FENTANYL BOLUS FROM BAG IV PRN (11:40)
[2020-02-21] MEDS ORDERED: FUROSEMIDE 20 MG in SYRINGE 0 ML IV ONE (11:45)
[2020-02-21] MEDS ORDERED: POTASSIUM CHLORIDE 20 MEQ/15 ML UDC NG SCH (11:45)
[2020-02-21] MEDS ORDERED: DEXTROSE 50% 50 ML SYRINGE IV PRN (12:00)
[2020-02-21] MEDS ORDERED: GLUCAGON FOR INJ 1 MG VIAL IM PRN (12:00)
[2020-02-21] MEDS ORDERED: GLUCOSE 10 TABS/TUBE PO PRN (12:00)
[2020-02-21] MEDS ORDERED: CARBOHYDRATES FOR HYPOGLYCEMIA PO PRN (12:00)
[2020-02-21] MEDS ORDERED: GLUCOSE 40% GEL 15 GM TUBE PO PRN (12:00)
[2020-02-21] MEDS ORDERED: POTASSIUM PHOSPHATE 21 MMOL in SODIUM CHLORIDE 0.9% 500 ML IV ONE (12:15)
[2020-02-21] MEDS: fentaNYL DRIP 1,250 MCG/250 ML BAG IV SCH (12:20)
[2020-02-21] MEDS: NOREPINEPHRINE BIT INJ 8 MG in DEXTROSE 5% 250 ML IV SCH (12:24)
--- NOTE | 2020-02-21 12:44 | Palliative Care Consultation ---
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 In Ed, patient had coffee ground emesis, was lethargic and not answering questions. he was intubated. CT abd/pelvis showed high-grade partial or complete SBO due to herniated short segment of small bowel within the ventral hernia. OG tube placed for decompression. Ammonia elevated at 90, CT head showed nothing acute. Patient was also noted to have elevated troponin and some ST elevated on EKG, however, no cardiac catheterization performed as patient taken to the OR for emergent open repair of ventral hernia and small bowel release. Post-operatively, patient sent to ICU, intubated and on pressors. Labs were monitored closely, and CXR had some increased bilateral opacities. He was treated for CHF exacerbation with IV Lasix. Patient remained sedated on ventilator, moving all extremities but not following commands. Procalcitonin was trending upwards, troponin trending down. Bronchoscopy pe rformed on 02/16 to evaluation for alveolar hemorrhage, none found. While patient seemed to stabilize from a cardiac standpoint with decrease in pressors, respiratory status worsened to development of ARDS per neurologist. Patient on high dose Decadron with close monitoring for GI bleed. Yesterday, procalcitonin trending down, patient afebrile. Respiratory cultures growing yeast, but with clinical correlation, felt to be a contaminant. Continued on Zosyn. Patient still not following commands, although he continues to ZHONG. Neurology consulted, MRI brain obtained which shows only chronic small vessel changes and atrophy. May get EEG. Surgical team contacted yesterday as patient was having some drainage from incision site, was evaluated by surgeon but no urgent need for intervention at that time. Continue tube feedings and current care. Given patient's continued critical illness and comorbidities, palliative care is consulted to discuss goals of care. -Patient seen by palliative MD this afternoon. Remains intubated. Family has been contacted by ICU team today, zoom meeting was arranged so family could see patient. -Current plan is to continue current care. Patient is now DNR. Working towards weaning ventilator and extubating patient with NO plans to reintubate. No escalation in care per neurologist's conversation with patient's oldest son and daughter. -Patient's apparently has some dementia, but agrees that patient would not want heroic measures in the case of cardiac arrest. -Palliative care is following along and will engage with family as needed to assist family with medical decision making and discussing goals of care. -Prognosis is guarded, patient remains critically ill without signs of significant improvement at this time. ICU team managing care and continuing to try and optimize patient for extubation. (2) ARDS (adult respiratory distress syndrome): (3) Chronic liver disease and cirrhosis: Supervising Physician Co-Signing Physician Notes Chart reviewed, patient seen and examined in the ICU. Collaborated with Mayra Rodriguez as well as ICU attending, Dr. Magana. Nursing reports family has been able to see patient via Zoom. Nursing also reports that when sedation is decreased patient is able to nod yes or no to simple questions, although his answers do not always correlate. Patient unable to follow simple commands. Conversations have been with patient's daughter and 2 sons, patient's is elderly and frail, but able to participate in conversations. PE: Patient intubated and sedated, does move all extremities HEENT: Patient appears to be able to hear Respirations: Intubated, coarse breath sounds bilaterally CV: Regular rate, no edema Abdomen: Abdominal binder in place Neuro: Patient minimally responsive on exam Agree with above note, assessment and plan as per CHRISTOFER Bazan. Will continue to follow and assist family with medical decision making as well as provide emotional support. 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 In Ed, patient had coffee ground emesis, was lethargic and not answering questions. he was intubated. CT abd/pelvis showed high-grade partial or complete SBO due to herniated short segment of small bowel within the ventral hernia. OG tube placed for decompression. Ammonia elevated at 90, CT head showed nothing acute. Patient was also noted to have elevated troponin and some ST elevated on EKG, however, no cardiac catheterization performed as patient taken to the OR for emergent open repair of ventral hernia and small bowel release. Post-operatively, patient sent to ICU, intubated and on pressors. Labs were monitored closely, and CXR had some increased bilateral opacities. He was treated for CHF exacerbation with IV Lasix. Patient remained sedated on ventilator, moving all extremities but not following commands. Procalcitonin was trending upwards, troponin trending down. Bronchoscopy performed on 02/16 to evaluation for alveolar hemorrhage, none found. While patient seemed to stabilize from a cardiac standpoint with decrease in pressors, respiratory status worsened to development of ARDS per neurologist. Patient on high dose Decadron with close monitoring for GI bleed. Yesterday, procalcitonin trending down, patient afebrile. Respiratory cultures growing yeast, but with clinical correlation, felt to be a contaminant. Continued on Zosyn. Patient still not following commands, although he continues to ZHONG. Neurology consulted, MRI brain obtained which shows only chronic small vessel changes and atrophy. May get EEG. Surgical team contacted yesterday as patient was having some drainage from incision site, was evaluated by surgeon but no urgent need for intervention at that time. Continue tube feedings and current care. Given patient's continued critical illness and comorbidities, palliative care is consulted to discuss goals of care. Thank you kindly for this consult. Palliative care team will follow as needed. Allergies Allergy/AdvReac Type Severity Reaction Status Date / Time No Known Allergies Allergy Verified 02/16/20 13:03 Home Medications Home Medications Medication Instructions Recorded Confirmed Type Centrum Silver 1 tab PO QAM 12/21/18 02/16/20 History tamsulosin [Flomax] 0.4 mg PO QAM 12/21/18 02/16/20 History loratadine 10 mg PO DAILY PRN 01/07/19 02/16/20 History polyethylene glycol 3350 [Miralax] 17 g PO DAILY PRN 01/27/19 02/16/20 History artificial tears(hypromellose) 0.3 1 drops OP QID PRN 02/17/19 02/16/20 History % eye gel cholecalciferol (vitamin D3) 50 2,000 units PO QAM tab 02/17/19 02/16/20 History mcg (2,000 unit) tablet sodium chloride 0.65 % nasal spray 2 sprays INTNAS QID PRN 02/17/19 02/16/20 History aerosol Xifaxan 550 mg PO BID 06/12/19 02/16/20 History lactulose 45 ml PO TID 08/06/19 02/16/20 History Restasis 1 drp OPHTHALMIC (EYE) Q12H 09/22/19 02/16/20 History atorvastatin [Lipitor] 10 mg PO HS 09/22/19 02/16/20 History lancets 09/22/19 02/16/20 History omeprazole 20 mg PO DAILY 09/22/19 02/16/20 History ipratropium bromide 2 spray INTRANASAL QID PRN 10/02/19 02/16/20 History azelastine 2 spray INTRANASAL BID 11/17/19 02/16/20 History fluoride (sodium) [PreviDent 5000 1 applic DENTAL TID 11/17/19 02/16/20 History Plus] pilocarpine HCl 5 mg tablet 5 mg PO TID #90 tab 12/23/19 02/16/20 Rx ciprofloxacin HCl 500 mg PO DAILY 01/11/20 02/16/20 History fluoride (sodium) [DentaGel] 1 applic DENTAL DAILY 02/16/20 02/16/20 History furosemide [Lasix] 20 mg PO DAILY 02/16/20 02/16/20 History ondansetron 4 mg PO Q8 PRN 02/16/20 02/16/20 History spironolactone [Aldactone] 100 mg PO QAM 02/16/20 02/16/20 History Patient History Medical History Anemia ARDS (adult respiratory distress syndrome) Ascites (Chronic) 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 Elevated LFTs suspected to be from DILI vs AIH. LFTs normalized now so immunosuppression use was deferred. 4L fluid drained 12/15. Abdomen noticeably distended at [facility] appt on 12/31/18. BPH (benign prostatic hyperplasia) (Chronic) Cirrhosis (Chronic) Depression (Chronic) Diabetes mellitus, type II (Chronic) PER , METFORMIN RECENTLY D/C. GERD (gastroesophageal reflux disease) (Chronic) History of abdominal paracentesis (Resolved) 06/11/19, 02/08/19, 11/2018 HLD (hyperlipidemia) (Chronic) HTN (hypertension) (Chronic) No current meds Paroxysmal A-fib (Chronic) [facility] Poor historian PVCs (premature ventricular contractions) (Chronic) S/P admission to ICU (intensive care unit) Septic shock Sleep apnea (Chronic) NO DEVICE USED Spontaneous bacterial peritonitis (Resolved) Jun 2018. Pt was admitted for a fib RVR and ascites, fluid drawn from abdomen showed SBP. Treated with ABX and [facility]. [facility] and Dr. Monreal (Hepatology). Umbilical hernia Upper GI bleed Surgical History History of adenoidectomy (Chronic) 01/11/19 History of cataract surgery (Chronic) RT/LEFT History of colonoscopy (Chronic) 01/30/16 History of ERCP (Chronic) 05/12/18 - stent removed History of esophagogastroduodenoscopy (EGD) (Chronic) 11/07/2010, 06/23/18 - with endoscopic US History of eye surgery (Chronic) 2008 - TEAR DUCT OPENED UP History of hernia repair (Chronic) 04/02/18 History of intraocular lens implant (Chronic) 2008 - Bilateral History of laryngoscopy (Chronic) 01/11/19 - with biopsies + right modified radical cervical lymphadenectomy History of liver biopsy (Chronic) 05/2018 History of tonsillectomy (Chronic) 01/11/19 History of tooth extraction (Chronic) 01/11/19 S/P cholecystectomy (Chronic) 04/02/2018. Yan 2, grade 1 view. 8.0 ETT. 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 Family History Mother , Passed age 49 from Leukemia No problems noted. Sister , Passed age 6 months of pneumonia No problems noted. Brother , Passed in late 50's of [place] No problems noted. Sister , Passed in 60's of diabetic complications No problems noted. Sister No problems noted. Daughter Breast cancer, Onset Age: 40 Stage III - Currently doing well Brother No problems noted. Brother No problems noted. 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 Feels Safe at Home: Yes Smoking Status: Former smoker Tobacco Type: smokeless tobacco ; packs per day: 0.5 ; Second Hand Exposure: No ; Childhood Exposure to Second-Hand Smoke: Yes caffeine: Yes (3 cups of coffee/week with tea inbetween ) during the past year weight has: decreased > 10 lbs Dental Care, Regularly: No Results & Data Vital Signs (Past 12 Hours) Vital Signs Temp Pulse Resp BP Pulse Ox 02/21/20 11:20 77 18 97 02/21/20 08:25 70 100/52 L 94 02/21/20 08:14 36.4 C L 64 104/60 97 02/21/20 08:00 120 H 02/21/20 07:55 70 100/52 L 99 02/21/20 07:30 82 02/21/20 07:15 87 17 98 02/21/20 07:00 99 H 91 02/21/20 06:09 80 110/62 93 02/21/20 06:00 68 97 02/21/20 05:45 81 95 02/21/20 05:30 81 93 02/21/20 05:15 75 92 02/21/20 05:09 78 100/58 L 91 02/21/20 05:00 82 22 92 02/21/20 04:45 89 88 L 02/21/20 04:30 97 H 91 02/21/20 04:15 87 91 02/21/20 04:09 68 115/66 98 02/21/20 04:00 36.8 C 75 92 02/21/20 03:45 68 95 02/21/20 03:30 63 95 02/21/20 03:15 68 94 02/21/20 03:10 67 95 02/21/20 03:09 68 100/56 L 95 02/21/20 03:00 72 96 02/21/20 02:45 65 96 02/21/20 02:30 64 95 02/21/20 02:15 67 96 02/21/20 02:09 65 92/58 L 96 02/21/20 02:05 59 L 16 97 02/21/20 02:00 60 96 02/21/20 01:45 72 96 02/21/20 01:30 69 102/56 L 97 02/21/20 01:15 75 96 02/21/20 01:09 64 102/56 L 96 02/21/20 01:00 36.8 C 70 96 02/21/20 00:45 71 96 02/21/20 00:30 69 96 Coding Level of Care Code 70278 Inpt Consult Level 3 Diagnoses Goals of care, counseling/discussion Z71.89 ARDS (adult respiratory distress syndrome) J80 Chronic liver disease and cirrhosis K74.60; K76.9 Time Spent (min) 80 Time Spent Midlevel A total of 50 minutes spent by this TOOL PLANNER in reviewing chart, speaking with neurologist and discussing with palliative MD about patient condition, goals of care, and plan ofcare. Attending Time spent 30 minutes with greater than 50% of the time spent at bedside and in the unit assessing patient's current condition, reviewing family's goals of care and collaborating with ICU staff.
[2020-02-21] MEDS: HEPARIN SOD 5,000 UNIT/0.5 ML VIAL SQ SCH ×2 (12:57→22:29)
[2020-02-21] MEDS: IMPACT LIQD 1.0 CAL 1,000 ML BAG OG SCH (17:34)
--- NOTE | 2020-02-21 17:46 | Hospitalist Progress Note ---
Date of Service February 21, 2020 Assessment & Plan (1) Incarcerated ventral hernia: (2) SBO (small bowel obstruction): Present on admission with altered mental status abdominal distention associated with vomiting CT abd/pelvis showed highly concerning for a high-grade partial or complete sma ll bowel obstruction. This may be due to interval development of a herniated short segment of small bowel within the ventral hernia. KUB showed small bowel obstruction. Surgery on board S/P day#5 Open Ventral Hernia Repair and release of small bowel obstruction by dr. Shafer Intubated on vent support Seems to develop recurrent ventral hernia No emergent surgical intervention required for now as per surgery Continue tube feeding Continue PPI drip and IV Zosyn Poor prognosis Palliative care on board (3) Aspiration pneumonia: ARDS CXR showed diffuse bilateral parenchymal infiltrative change Elevated lactic acid, WBC and procalcitonin Intubated on vent support Continue IV Zosyn and IV decadron Continue Vent support ICU team had meeting with family and stated that not to reintubated in event of respiratory insufficiency after extubating Poor prognosis (4) Acute hepatic encephalopathy: CT head showed no acute intracranial abnormality Sedated with fentanyl drip currently and required vent support Ammonia level on admission 90, then dropped to 40 Neuro on board If mental status does not improve, plan to get a MRI of the brain Continue Lactulose Starting on high dose IV thiamine (5) NSTEMI (non-ST elevated myocardial infarction): Troponin on admission wnl, that peaked to 7.5, now trending down to 4 EKG showed no acute ischemia ECHO done showed hypokinesis to akinesis with sparing of the basal segment with EF 35-40 % Finding suggestive of a stress-induced cardiomyopathy with left ventricular apical ballooning pattern rather than an ST segment elevation myocardial infarction Cardiology on board No antiplatelet therapy due to GI bleed Continue monitor closely (6) Acute upper GI bleed: Noted coffee ground emesis in ER. Hgb on admission 12.9 Hgb 8.1today GI on board On Protonix drip Octreotide was discontinued Continue Monitor H/H and transfuses if Hgb below 8 (7) Acute kidney injury superimposed on CKD: BUN: 19, Cr: 1.6. Recent baseline Cr~1.1, was up to 1.3 in 2019 Monitor renal functions (8) Cirrhosis: H/O Cirrhosis with ascites. S/P TIPS in 2019. Requires recurrent par acentesis. (9) Paroxysmal A-fib: No further episode of afib Not on anticoagulation secondary to recurrent paracentesis. consider low dose IV metoprolol prn Will keep K above 4 and Mg above 2 cardiology on board DVT px on SCD due to GI bleed CODE STATUS DNR Admission and Anticipated Discharge Date Admission Date: February 16, 2020 Subjective Pt was seen and examined Sedated on vent support ICU team had a meeting with family via zoom today As per family patient would not want heroic measures in the case of cardiac arrest. Physical Exam Physical Exam: General- on mechanical vent support Head- atraumatic Eyes- PERRL, EOMI, ENT- intubated Neck- supple, no JVD Lungs- no wheezing Heart- regular rhythm; no murmur Abdomen- Hypoactive bowel sound, Incision with milagros, no drainage, + ventral hernia Extremities- no calf tenderness Neuro- moves all 4 extremities Skin- warm & dry Results & Data Results & Data ([facility]) Vital Signs (Past 12 Hours) Vital Signs Temp Pulse Resp BP Pulse Ox 02/21/20 15:10 67 16 94 02/21/20 14:56 69 108/59 L 95 02/21/20 14:26 71 102/64 95 02/21/20 13:55 66 98/58 L 96 02/21/20 13:25 71 106/58 L 96 02/21/20 13:20 79 21 93 02/21/20 12:56 79 103/61 91 02/21/20 12:26 74 108/53 L 93 02/21/20 11:56 71 101/57 L 92 02/21/20 11:25 73 104/58 L 91 02/21/20 11:20 77 18 97 02/21/20 10:55 72 108/58 L 97 02/21/20 10:25 67 106/60 97 02/21/20 09:55 70 108/61 97 02/21/20 08:55 63 79/47 L 92 02/21/20 08:25 70 100/52 L 94 02/21/20 08:14 36.4 C L 64 104/60 97 02/21/20 08:00 120 H 02/21/20 07:55 70 100/52 L 99 02/21/20 07:30 82 02/21/20 07:15 87 17 98 04/27/20 07:00 99 H 91 02/21/20 06:09 80 110/62 93 02/21/20 06:00 68 97 02/21/20 05:45 81 95
[2020-02-21] MEDS: propofoL 1,000 MG/100 ML VIAL IV SCH ×2 (18:06→18:18)
[2020-02-22] MEDS: INSULIN ASPART 100 UNITS/ML 3 ML PEN SC SCH ×6 (01:21→19:56)
[2020-02-22] MEDS: PIPERACILLIN/TAZOBACTAM 4.5 GM in DEXTROSE 5% 100 ML IV SCH ×3 (03:21→17:22)
[2020-02-22 04:36] LABS: Basophils # (auto) 0.01 K/uL (0-0.2); Basophils % (auto) 0.1 %; Hematocrit (blood only) 23.2 % (42-52); Immature Granulocytes # (auto) 0.21 K/uL (0.00-0.02); Immature Granulocytes % (auto) 2.3 %; Lymphocytes # (auto) 0.56 K/uL (1.2-3.4); Lymphocytes % (auto) 6.1 %; Mean Corpuscular Hemoglobin 32.9 pg (25-34); Mean Corpuscular Hgb Conc 34.5 g/dL (32-36); Mean Corpuscular Volume 95.5 fL (80-100); Mean Platelet Volume 9.8 fL (7.4-10.4); Monocytes # (auto) 1.02 K/uL (0.11-0.59); Neutrophils # (auto) 7.45 K/uL (1.4-6.5); Neutrophils % (auto) 80.5 %; Nucleated RBC # (auto) 0.02 K/uL (0-0); Nucleated RBC % (auto) 0.2 %; Platelet Count 137 K/uL (130-400); RDW Standard Deviation 51.1 fL (36.4-46.3); Red Blood Count 2.43 M/uL (4.7-6.1); White Blood Count 9.25 K/uL (4.8-10.8)
[2020-02-22 04:48] LABS: INR 1.4 (0.9-1.1); Prothrombin Time 14.4 Seconds (9.0-12.0)
[2020-02-22 04:55] LABS: BUN Creatinine Ratio 32.9 (10-20); Calcium 8.1 mg/dl (8.5-10.1); Creatinine Clr Calc Pharmacy 41.4 ml/min; Est GFR (African American) 65.6; Est GFR (Non-African American) 56.6
[2020-02-22 05:01] LABS: Albumin Globulin Ratio 0.7 (0.9-2); Bilirubin,Total 1.1 mg/dl (0.2-1); Globulin 2.7 gm/dl (2.5-4.0); Phosphorus 2.9 mg/dl (2.5-4.9); Total Protein 4.7 gm/dl (6.4-8.2)
[2020-02-22] MEDS: THIAMINE HCL 500 MG in 0.9 % SODIUM CHLORIDE 100 ML IV SCH ×2 (05:27→13:19)
[2020-02-22] MEDS: HEPARIN SOD 5,000 UNIT/0.5 ML VIAL SQ SCH ×3 (05:28→19:57)
[2020-02-22 06:14] LABS: iSTAT Arterial Blood Gas HCO3 26 meg/L (19-24); iSTAT Arterial Blood Gas pCO2 33 mmHg (35-46); iSTAT Arterial Blood Gas pO2 64 mmHg (80-95); iSTAT Carbon Dioxide 27 mmol/L (24-31); iSTAT FiO2 30 %; iSTAT Site Art Line
--- NOTE | 2020-02-22 07:25 | XRay Report ---
XR chest 1V portable HISTORY: Respiratory failure. COMPARISON: Chest 02/21/2020. FINDINGS: The endotracheal tube terminates approximately 3.2 cm from the gareth. Nasogastric tube ter minates in a postpyloric position. Right jugular central venous catheter terminates in the distal SVC . The heart remains top normal in size. No pneumothorax. Small bilateral pleural effusions are again noted. Near diffuse bilateral airspace opacities have slightly progressed. IMPRESSION: 1. Satisfactory support line placement. 2. Interval progression of the near diffuse bilateral airspace opacities and small bilateral pleural effusions. ACT 112: Negative or not required by law. Electronically signed by: Nacho Goss M.D. 02/22/2020 7:24 AM
--- NOTE | 2020-02-22 07:49 | Critical Care Progress Note ---
Date of Service February 22, 2020 Assessment & Plan (1) Encephalopathy acute: (2) ARDS (adult respiratory distress syndrome): Reason Critically Ill: 80-year-old male postop day 5 status post reduction of incarcerated ventral hernia and release of small bowel obstruction, with multisystem organ dysfunction PLAN: Neuro: Acute encephalopathy: Multifactorial -Continue lactulose -Suspect baseline encephalopathy given status post TIPS Resp: Aspiration of gastric contents into airway Aspiration pneumonitis Acute respiratory distress syndrome Acute hypoxic respiratory failure -Increasing FiO2, frequent suctioning of secretions: Patient not ready for liberation from ventilator at this time Mucoid impaction in right and left lower bronchi -Status post bronchoscopy 02/21 Moderate tracheomalacia: Acquired left lung CV: History paroxysmal atrial fibrillation: Anticoagulation contraindicated at this time Non-ST elevated myocardial infarction Cardiomyopathy -Discussed with cardiology today -Optimize electrolytes, will attempt to add metoprolol as tolerated Hypotension -Weaning vasoactive medication at this time however he is still requiring it at baseline Fluids/Renal: Acute kidney injury: Resolved -Optimize electrolytes ID: Continue Zosyn: 7-day course Lidia albicans isolated from bronc: Consider this to be colonization GI/Nutrition: Trickle feeds Heme: Postop anemia DVT prophylaxis: Heparin subcu Endocrine: ICU hyperglycemia protocol Anticipate elevated blood sugars in the setting of high-dose steroids Vascular access: Right IJ Code Status: DNR in event of cardiac arrest, DO NOT INTUBATE in event of respiratory insufficiency, no escalation of care for high acuity/high risk procedures Disposition: Continue ICU (3) Septic shock: (4) Aspiration pneumonia: (5) Acute kidney injury superimposed on CKD: (6) Elevated INR: (7) S/P TIPS (transjugular intrahepatic portosystemic shunt): (8) Hepatic insufficiency: (9) Chronic liver disease and cirrhosis: (10) Tracheomalacia, acquired: (11) Anemia: (12) Mucoid impaction of bronchi: (13) Goals of care, counseling/discussion: Admission and Anticipated Discharge Date Admission Date: February 16, 2020 Subjective No overnight events, patient desaturates quickly with suctioning. Review of Systems Review of Systems: Unobtainable due to endotracheal tube Physical Exam Physical Exam: General: Somnolent, GCS Glascow Coma Scale: Eyes: 3, Verbal 1T, Motor 5, Total 9T. Skin: Warm, dry, Head: Atraumatic Ears, nose, mouth and throat: Obscured by endotracheal tube Cardiovascular: Increased capillary refill: Mild Respiratory: Coarse sounds bilaterally Gastrointestinal: Abdominal binder in place Musculoskeletal: No deformity Results & Data Results & Data ([facility]) Vital Signs (Past 12 Hours) Vital Signs Pulse Resp BP Pulse Ox 02/22/20 06:53 54 L 15 92 02/22/20 05:35 58 L 12 92 02/22/20 04:00 58 L 02/22/20 02:05 59 L 15 92 02/22/20 00:00 59 L 02/21/20 23:45 67 22 92 02/21/20 22:30 60 91 02/21/20 22:15 69 89 L 02/21/20 22:00 85 87 L 02/21/20 21:45 69 95 02/21/20 21:40 72 107/52 L 93 02/21/20 21:30 71 92 02/21/20 21:15 73 94 02/21/20 21:00 69 20 93 02/21/20 20:45 75 95 02/21/20 20:40 71 101/56 L 95 02/21/20 20:30 81 93 02/21/20 20:15 68 95 02/21/20 20:00 75 94 Coding Level of Care Code Critical Care 1st 30-74 mins Diagnoses Encephalopathy acute G93.40 ARDS (adult respiratory distress syndrome) J80 Septic shock A41.9; R65.21 Aspiration pneumonia J69.0 Acute kidney injury superimposed on CKD N17.9; N18.9 Elevated INR R79.1 S/P TIPS (transjugular intrahepatic portosystemic shunt) Z95.828 Hepatic insufficiency K72.90 Chronic liver disease and cirrhosis K74.60; K76.9 Tracheomalacia, acquired J39.8 Anemia D64.9 Mucoid impaction of bronchi J98.09 Goals of care, counseling/discussion Z71.89 Time Spent (min) 50 Comment I have personally spent 50 minutes of critical care time in the direct manag ement of this patient. This is a life/limb threatening event. This includes time spent evaluating patient, direct bedside care, chart review, placing orders, interpretation of diagnostic studies, discussion with consultants, patient, and/or family members regarding treatment decisions, as well as other required patient management activities. This time is exclusive of all separately billable procedures, and teaching time and separate from and in addition to any other critical care service time.
[2020-02-22] MEDS: propofoL 1,000 MG/100 ML VIAL IV SCH (08:33)
[2020-02-22] MEDS: LACTULOSE SYRUP 20 GM/30 ML UDC PO SCH ×2 (08:35→23:13)
[2020-02-22] MEDS: PANTOprazole 40 MG in SYRINGE 0 ML IV SCH ×2 (08:36→19:56)
[2020-02-22] MEDS: DEXAMETHASONE SOD PHOSPHATE 20 MG in DEXTROSE 5% 25 ML IV SCH (08:36)
--- NOTE | 2020-02-22 08:58 | Procedure Note ---
Procedure Note: Bronchoscopy Procedure Procedure date: February 22, 2020 Procedure: fiberoptic bronchoscopy Pre-procedure indication: Hypoxic respiratory failure Post-procedure Diagnosis: same as above Prior to Procedure: Informed Consent: The risks, benefits, indications, potential complications, and alternatives were explained to the patient's daughter and informed consent obtained. Attending Staff: Samuel Magana DO Resident/APC: Not applicable Skin Prep: Not applicable Anesthesia: Continuous infusion The identity of the patient was confirmed and a bedside time out was performed. Description of Procedure: Fiberoptic bronchoscopy was performed via endotracheal tube. Bronchioalveolar lavage of the right lower and left lower lobe was performed. Findings included: Thick tenacious secretions in the bilateral lower lobe airways, mucoid impaction, no purulence noted, moderate tracheomalacia of the left lung with approximately 50% occlusion with exhalation. Complications: None Specimens: None Estimated blood loss: Zero
[2020-02-22] MEDS ORDERED: POTASSIUM CHLORIDE 20 MEQ/15 ML UDC NG SCH (10:00)
[2020-02-22] MEDS ORDERED: CHLOROTHIAZIDE SODIUM 500 MG in DEXTROSE 5% 50 ML IV ONE (10:00)
--- NOTE | 2020-02-22 10:27 | Cardiology Progress Note ---
Date of Service February 22, 2020 Assessment & Plan (1) Paroxysmal A-fib: (2) NSTEMI (non-ST elevated myocardial infarction): (3) Septic shock: (4) Aspiration pneumonia: (5) ARDS (adult respiratory distress syndrome): (6) Upper GI bleed: (7) Anemia: (8) Incarcerated umbilical hernia: NSTEMI/Ischemic heart disease versus stress-induced cardiomyopathy noted on admission. Ejection fraction is moderately reduced at 35 to 40%. Repeat x-ray performed today demonstrates progression of bilateral airspace opacities despite his dose of IV Lasix 02/20. Consider additional dose of IV Lasix today. High-dose Aldactone on hold since admission due to hypotension. Monitor urinary output, renal function, and fluid balance daily. No recurrent atrial fibrillation overnight. Continue IV metoprolol as needed. Consider addition of low-dose metoprolol 2.5 mg IV every 6 hours if salvos of atrial fibrillation become more frequent. Potassium and magnesium supplemented appropriately. Hemoglobin trending downward (8.0 today). Continue to monitor. Recommend maintaining hemoglobin > 8.0 gm/dl. Patient is not a candidate for anticoagulation, antiplatelet, or statin therapy at this time. Subjective Patient seen and examined at the bedside. Sedated with propofol and fentanyl. Norepinephrine infusing. Hemodynamic stable. No recurrent atrial fibrillation on telemetry. Sinus bradycardia as well as intermittent junctional bradycardia noted with heart rate ranging from 45 to 60 bpm. No significant pauses, or heart block recorded. Patient received 20 mg IV Lasix 02/21/2020. Fluid balance remains positive. Chest x-ray reviewed demonstrating progression of diffuse bilateral airspace opacities and small bilateral pleural effusions. Ventilator settings unchanged. Patient remains on 30% FiO2. Oxygen saturation per a.m. ABG is 94%. Review of Systems Review of Systems: Unobtainable due to endotracheal tube Physical Exam Constitutional: + ill appearing; no acute distress Respiratory: Auscultation: no crackles, no rales, no rhonchi and no wheezes Cardiovascular: Rate/Rhythm: regular rate and regular rhythm Heart Sounds: normal S1 and normal S2; no murmur Gastrointestinal (Abdomen): Inspection/Auscultation: abdomen not distended Percussion/Palpation: abdomen soft; no guarding and abdomen not rigid Skin: no rashes, warm and dry Neurologic: Unable to adequately assess, patient sedated with fentanyl and propofol Results & Data Vital Signs (Past 12 Hours) Vital Signs Pulse Resp Pulse Ox 02/22/20 09:57 49 L 14 91 02/22/20 06:53 54 L 15 92 02/22/20 05:35 58 L 12 92 02/22/20 04:00 58 L 02/22/20 02:05 59 L 15 92 02/22/20 00:00 59 L 02/21/20 23:45 67 22 92 02/21/20 22:30 60 91
[2020-02-22] MEDS ORDERED: NOREPINEPHRINE BIT INJ 4 MG in DEXTROSE 5% 250 ML IV SCH (10:30)
[2020-02-22] MEDS ORDERED: POTASSIUM PHOSPHATE 15 MMOL in SODIUM CHLORIDE 0.9% 250 ML IV ONE (12:00)
--- NOTE | 2020-02-22 12:22 | Surgery Progress Note ---
Date of Service February 22, 2020 Assessment & Plan (1) SBO (small bowel obstruction): pt with multiple baseline medical issues complicated by aspiration pneumonitis/ARDS secondary a SBO secondary to an incarcerated hernia plan is to extubated tomorrow with comfort measures. I agree with this plan. poor prognosis and he does not seem to be progressing as we would hope. I appreciate everyones help in his post operative care. Subjective pt sedated on vent. per RN pt still on one pressor. thanh TF's at 15 cc/hour Physical Exam Physical Exam: sedated on vent abd: soft. incision C/D/I. no sign of infection. I do not palpate a recurrence of the hernia Results & Data Vital Signs (Past 12 Hours) Vital Signs Pulse Resp Pulse Ox 02/22/20 09:57 49 L 14 91 02/22/20 06:53 54 L 15 92 02/22/20 05:35 58 L 12 92 02/22/20 04:00 58 L 02/22/20 02:05 59 L 15 92 PG Care Time/CCT Total # of Minutes Spent Total Time Spent with Patient: Total time spent is greater than 50% in coordination of care (as documented) at patient's floor/unit and/or counseling patient: Coding Level of Care Code None Diagnoses SBO (small bowel obstruction) K56.609
[2020-02-22] MEDS: fentaNYL DRIP 1,250 MCG/250 ML BAG IV SCH (13:57)
[2020-02-22] MEDS ORDERED: FENTANYL BOLUS FROM BAG IV STA (13:58)
--- NOTE | 2020-02-22 14:47 | Palliative Care Progress Note ---
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 In Ed, patient had coffee ground emesis, was lethargic and not answering questions. he was intubated. CT abd/pelvis showed high-grade partial or complete SBO due to herniated short segment of small bowel within the ventral hernia. OG tube placed for decompression. Ammonia elevated at 90, CT head showed nothing acute. Patient was also noted to have elevated troponin and some ST elevated on EKG, however, no cardiac catheterization performed as patient taken to the OR for emergent open repair of ventral hernia and small bowel release. Post-operatively, patient sent to ICU, intubated and on pressors. Labs were monitored closely, and CXR had some increased bilateral opacities. He was treated for CHF exacerbation with IV Lasix. Patient remained sedated on ventilator, moving all extremities but not following commands. Procalcitonin was trending upwards, troponin trending down. Bronchoscopy perfor med on 02/16 to evaluation for alveolar hemorrhage, none found. While patient seemed to stabilize from a cardiac standpoint with decrease in pressors, respiratory status worsened to development of ARDS per dental services director. Patient on high dose Decadron with close monitoring for GI bleed. Yesterday, procalcitonin trending down, patient afebrile. Respiratory cultures growing yeast, but with clinical correlation, felt to be a contaminant. Continued on Zosyn. Patient still not following commands, although he continues to ZHONG. Neurology consulted, MRI brain obtained which shows only chronic small vessel changes and atrophy. May get EEG. Surgical team contacted yesterday as patient was having some drainage from incision site, was evaluated by surgeon but no urgent need for intervention at that time. Continue tube feedings and current care. Given patient's continued critical illness and comorbidities, palliative care is consulted to discuss goals of care. -Patient seen this afternoon. Remains intubated. Family has been in to see patient, more family expected this afternoon or tomorrow morning. -Current plan is to continue current care. Patient is now DNR. Working towards weaning ventilator and extubating patient with NO plans to reintubate. No escalation in care per dental services director's conversation with patient's oldest son and daughter. -Palliative care is following along and will engage with family as needed to assist family with medical decision making and discussing goals of care. -Prognosis is guarded, patient remains critically ill without signs of significant improvement at this time. ICU team managing care and continuing to try and optimize patient for extubation. (2) ARDS (adult respiratory distress syndrome): (3) Chronic liver disease and cirrhosis: Subjective Patient seen and examined in the ICU, collaborated with patient's nurse. No family at bedside. Nursing reports patient's son had been at an earlier today, patient also receiv ed last rites this a.m. Tentative plan is for extubation tomorrow, daughter planning to come in and visit patient either later today or tomorrow. Patient underwent bronchoscopy that showed impacted secretions but also revealed significant tracheomalacia. Patient just weaned off pressors this afternoon, remains intubated and sedated Review of Systems Review of Systems: Unobtainable due to cognitive status Physical Exam Physical Exam: PE: Patient intubated and sedated Respirations: Unlabored CV: Regular rate, no edema Abdomen: Not distended Neuro: Sedated Results & Data Vital Signs (Past 12 Hours) Vital Signs Temp Pulse Resp BP Pulse Ox 02/22/20 13:40 61 106/64 93 02/22/20 13:10 50 L 13 92 02/22/20 13:08 48 L 96/55 L 92 02/22/20 12:40 97.7 F 46 L 120/64 95 02/22/20 11:40 61 101/64 92 02/22/20 10:40 51 L 100/56 L 91 02/22/20 09:57 49 L 14 91 02/22/20 09:40 49 L 89/50 L 90 02/22/20 08:40 48 L 89/52 L 93 02/22/20 08:00 49 L 02/22/20 07:40 56 L 89/53 L 92 02/22/20 06:53 54 L 15 92 02/22/20 05:35 58 L 12 92 02/22/20 04:00 58 L PG Care Time/CCT Total # of Minutes Spent Total Time Spent with Patient: Total time spent 25 minutes with greater than 50% of the time spent at bedside assessing patient's current status. Coding Level of Care Code 96237 Subseq Hosp Care Lvl 2 Diagnoses Goals of care, counseling/discussion Z71.89 ARDS (adult respiratory distress syndrome) J80 Chronic liver disease and cirrhosis K74.60; K76.9 Time Spent (min) 25
--- NOTE | 2020-02-22 18:04 | Hospitalist Progress Note ---
Date of Service February 22, 2020 Assessment & Plan (1) Incarcerated ventral hernia: (2) SBO (small bowel obstruction): Present on admission with altered mental status abdominal distention associated with vomiting CT abd/pelvis showed highly concerning for a high-grade partial or complete sma ll bowel obstruction. This may be due to interval development of a herniated short segment of small bowel within the ventral hernia. KUB showed small bowel obstruction. Surgery on board S/P day#6 Open Ventral Hernia Repair and release of small bowel obstruction by dr. Shafer Intubated on vent support Seems to develop recurrent ventral hernia No emergent surgical intervention required for now as per surgery Continue tube feeding Continue PPI drip and IV Zosyn Poor prognosis Palliative care on board (3) Aspiration pneumonia: ARDS CXR showed diffuse bilateral parenchymal infiltrative change Elevated lactic acid, WBC and procalcitonin Intubated on vent support Continue IV Zosyn and IV decadron Continue Vent support ICU team had meeting with family and stated that not to reintubated in event of respiratory insufficiency after extubating Poor prognosis (4) Acute hepatic encephalopathy: CT head showed no acute intracranial abnormality Sedated with fentanyl drip currently and required vent support Ammonia level on admission 90, then dropped to 40 Neuro on board If mental status does not improve, plan to get a MRI of the brain Continue Lactulose Continue IV thiamine (5) NSTEMI (non-ST elevated myocardial infarction): Troponin on admission wnl, that peaked to 7.5, now trending down to 4 EKG showed no acute ischemia ECHO done showed hypokinesis to akinesis with sparing of the basal segment with EF 35-40 % Finding suggestive of a stress-induced cardiomyopathy with left ventricular apical ballooning pattern rather than an ST segment elevation myocardial infarction Cardiology on board No antiplatelet therapy due to GI bleed Continue monitor closely (6) Acute upper GI bleed: Noted coffee ground emesis in ER. Hgb on admission 12.9 Hgb 8.0 today GI on board On Protonix drip Octreotide was discontinued Continue Monitor H/H and transfuses if Hgb below 8 (7) Acute kidney injury superimposed on CKD: BUN: 19, Cr: 1.6. Recent baseline Cr~1.1, was up to 1.3 in 2019 Monitor renal functions (8) Cirrhosis: H/O Cirrhosis with ascites. S/P TIPS in 2019. Requires recurrent paracentesis. (9) Paroxysmal A-fib: No further episode of afib Not on anticoagulation secondary to recurrent paracentesis. consider low dose IV metoprolol prn Will keep K above 4 and Mg above 2 cardiology on board DVT px on SCD due to GI bleed CODE STATUS DNR Admission and Anticipated Discharge Date Admission Date: February 16, 2020 Subjective Pt was seen and examined Sedated on vent support Son came to visit him today Physical Exam Physical Exam: General- on mechanical vent support Head- atraumatic Eyes- PERRL, EOMI, ENT- intubated Neck- supple, no JVD Lungs- no wheezing Heart- regular rhythm; no murmur Abdomen- Hypoactive bowel sound, Incision with milagros, no drainage, + ventral hernia Extremities- no calf tenderness Neuro- +sedated Skin- warm & dry Results & Data Results & Data ([facility]) Vital Signs (Past 12 Hours) Vital Signs Temp Pulse Resp BP Pulse Ox 02/22/20 16:00 61 02/22/20 15:05 61 15 90 02/22/20 14:40 62 87/53 L 90 02/22/20 13:40 61 106/64 93 02/22/20 13:10 50 L 13 92 02/22/20 13:08 48 L 96/55 L 92 02/22/20 12:40 36.5 C 46 L 120/64 95 02/22/20 11:40 61 101/64 92 02/22/20 10:40 51 L 100/56 L 91 02/22/20 09:57 49 L 14 91 02/22/20 09:40 49 L 89/50 L 90 02/22/20 08:40 48 L 89/52 L 93 02/22/20 08:00 49 L 02/22/20 07:40 56 L 89/53 L 92 02/22/20 06:53 54 L 15 92
[2020-02-23] MEDS: INSULIN ASPART 100 UNITS/ML 3 ML PEN SC SCH ×7 (01:29→23:21)
[2020-02-23] MEDS: PIPERACILLIN/TAZOBACTAM 4.5 GM in DEXTROSE 5% 100 ML IV SCH ×3 (02:00→17:09)
[2020-02-23 04:52] LABS: Hemoglobin 7.7 g/dL (14.0-18.0); Mean Corpuscular Hemoglobin 32.4 pg (25-34); Mean Corpuscular Hgb Conc 33.5 g/dL (32-36); Mean Corpuscular Volume 96.6 fL (80-100); RDW Coefficient of Variation 15.2 % (11.5-14.5); RDW Standard Deviation 52.1 fL (36.4-46.3); Red Blood Count 2.38 M/uL (4.7-6.1); White Blood Count 8.19 K/uL (4.8-10.8)
[2020-02-23 05:01] LABS: INR 1.5 (0.9-1.1); Prothrombin Time 15.3 Seconds (9.0-12.0)
[2020-02-23 05:14] LABS: Platelet Count 99 K/uL (130-400)
[2020-02-23 05:15] LABS: Basophils # (auto) 0.01 K/uL (0-0.2); Basophils % (auto) 0.1 %; Echinocytes 1+; Immature Granulocytes # (auto) 0.32 K/uL (0.00-0.02); Immature Granulocytes % (auto) 3.9 %; Lymphocytes % (auto) 7.3 %; Monocytes # (auto) 0.74 K/uL (0.11-0.59); Neutrophils # (auto) 6.52 K/uL (1.4-6.5); Neutrophils % (auto) 79.7 %; Platelet Estimate Decreased (Normal)
[2020-02-23 05:30] LABS: Albumin Level 1.8 gm/dl (3.4-5.0); BUN Creatinine Ratio 34.6 (10-20); Calcium 7.9 mg/dl (8.5-10.1); Creatinine Clr Calc Pharmacy 48.4 ml/min; Est GFR (African American) 74.4; Est GFR (Non-African American) 64.2; Magnesium 2.2 mg/dl (1.8-2.4)
[2020-02-23 05:33] LABS: Albumin Globulin Ratio 0.7 (0.9-2); Bilirubin,Total 0.9 mg/dl (0.2-1); Globulin 2.7 gm/dl (2.5-4.0); Phosphorus 3.2 mg/dl (2.5-4.9); Total Protein 4.5 gm/dl (6.4-8.2)
[2020-02-23 05:39] LABS: iSTAT Arterial Blood Gas HCO3 23 meg/L (19-24); iSTAT Arterial Blood Gas pCO2 30 mmHg (35-46); iSTAT Arterial Blood Gas pH 7.49 (7.35-7.45); iSTAT Arterial Blood Gas pO2 69 mmHg (80-95); iSTAT Carbon Dioxide 24 mmol/L (24-31); iSTAT FiO2 35 %
[2020-02-23] MEDS: propofoL 1,000 MG/100 ML VIAL IV SCH (06:35)
[2020-02-23] MEDS: HEPARIN SOD 5,000 UNIT/0.5 ML VIAL SQ SCH ×3 (06:36→21:04)
--- NOTE | 2020-02-23 07:30 | XRay Report ---
XR chest 1V portable CLINICAL HISTORY: Respiratory failure COMPARISON STUDY: 02/22/2020 FINDINGS: There is a nasogastric tube which passes into the stomach. There is a right internal jugula r central venous catheter unchanged in position. There is an endotracheal tube positioned 4.3 cm abov e the gareth. There are bilateral pulmonary airspace opacities consistent with pulmonary edema. An in fectious process could appear similar. This appears minimally improved. There is a suspected right pl eural effusion.[ IMPRESSION: 1. Mild improvement in the extensive bilateral pulmonary airspace opacities ACT 112: Negative or not required by law. Electronically signed by: Delfino Del Toro M.D. 02/23/2020 7:29 AM
[2020-02-23] MEDS: THIAMINE HCL IV SCH (08:36)
[2020-02-23] MEDS: DEXAMETHASONE SOD PHOSPHATE 20 MG in DEXTROSE 5% 25 ML IV SCH (08:36)
[2020-02-23] MEDS: SODIUM CHLORIDE 0.9% IV SCH (08:36)
[2020-02-23] MEDS: PANTOprazole 40 MG in SYRINGE 0 ML IV SCH ×2 (08:37→19:57)
[2020-02-23] MEDS: LACTULOSE SYRUP 20 GM/30 ML UDC PO SCH ×2 (08:37→19:57)
--- NOTE | 2020-02-23 10:18 | Critical Care Progress Note ---
Date of Service February 23, 2020 Assessment & Plan (1) Encephalopathy acute: (2) ARDS (adult respiratory distress syndrome): Reason Critically Ill: 80-year-old male postop day 7 status post reduction of incarcerated ventral hernia and release of small bowel obstruction, with multisystem organ dysfunction PLAN: Neuro: Acute encephalopathy: Multifactorial -Continue lactulose -Suspect baseline encephalopathy given status post TIPS -Holding sedation if mental status improves would strongly proceed with extubation Resp: Aspiration of gastric contents into airway: Improved Aspiration pneumonitis: Improved Acute respiratory distress syndrome: Improved Acute hypoxic respiratory failure: Improved Mucoid impaction in right and left lower bronchi: Improved -Status post bronchoscopy 02/21 Moderate tracheomalacia: Acquired left lung CV: History paroxysmal atrial fibrillation: Anticoagulation contraindicated at this time Non-ST elevated myocardial infarction Cardiomyopathy -Attempts to add metoprolol at some point -Avoiding Midrin at this time Hypotension: Improved -We are not escalating care the patient, would not restart vasoactive's Fluids/Renal: Acute kidney injury: Resolved -Optimize electrolytes ID: Continue Zosyn: 10-day course Lidia albicans isolated from bronc: Consider this to be colonization GI/Nutrition: Trickle feeds -If continued encephalopathy precludes extubation today would increase tube feeds Heme: Postop anemia Thrombocytopenia -Consider anemia of chronic disease as well as underlying bone marrow suppression from chronic disease and current critical illness DVT prophylaxis: Heparin subcu Endocrine: ICU hyperglycemia protocol Anticipate elevated blood sugars in the setting of high-dose steroids Vascular access: Right IJ: Discontinue if possible and obtain peripherally guided ultrasound Code Status: DNR in event of cardiac arrest, DO NOT INTUBATE in event of respiratory insufficiency, no escalation of care for high acuity/high risk procedures Disposition: Continue ICU I discussed current status with the family, I anticipate extubation (terminal) in the next 24 to 48 hours. He continues to make very small steps in the pos itive direction; however, I still very concerned of a poor prognosis as a would anticipate more improvement to achieve a level of function that the patient would still find acceptable. (3) Septic shock: (4) Aspiration pneumonia: (5) Acute kidney injury superimposed on CKD: (6) Elevated INR: (7) S/P TIPS (transjugular intrahepatic portosystemic shunt): (8) Hepatic insufficiency: (9) Chronic liver disease and cirrhosis: (10) Tracheomalacia, acquired: (11) Anemia: (12) Mucoid impaction of bronchi: (13) Goals of care, counseling/discussion: Admission and Anticipated Discharge Date Admission Date: February 16, 2020 Subjective No overnight events. Was able to wean off vasoactive medication yesterday, decreased ventilator settings after bronchoscopy Review of Systems Review of Systems: Unobtainable due to endotracheal tube Physical Exam Physical Exam: General: Somnolent, GCS Glascow Coma Scale: Eyes: 3, Verbal 1T, Motor 5, Total 9T. Skin: Warm, dry, Head: Atraumatic Ears, nose, mouth and throat: Obscured by endotracheal tube Cardiovascular: Skin cool, improved capillary refill Respiratory: Coarse sounds bilaterally Gastrointestinal: Abdominal binder in place Musculoskeletal: No deformity Results & Data Results & Data ([facility]) Vital Signs (Past 12 Hours) Vital Signs Pulse Resp BP Pulse Ox 02/23/20 07:23 56 L 13 94 02/23/20 05:06 45 L 14 91 02/23/20 04:00 49 L 02/23/20 03:40 49 L 82/43 L 91 02/23/20 02:40 68 132/78 96 02/23/20 02:02 49 L 12 91 02/23/20 01:40 55 L 99/56 L 92 02/23/20 00:40 58 L 92/49 L 91 02/23/20 00:00 46 L 02/22/20 23:40 45 L 92/49 L 93 02/22/20 23:18 53 L 14 92 02/22/20 22:40 57 L 100/53 L 90 Laboratory Results 02/23/20 02/23/20 02/23/20 Range/Units 08:16 05:25 04:23 WBC (4.8-10.8) K/uL RBC (4.7-6.1) M/uL Hgb (14.0-18.0) g/dL Hct (42-52) % MCV (80-100) fL MCH (25-34) pg MCHC (32-36) g/dL RDW Std Deviation (36.4-46.3) fL RDW Coeff of Scott (11.5-14.5) % Plt Count (130-400) K/uL MPV (7.4-10.4) fL Immature Gran % (Auto) % Neut % (Auto) % Lymph % (Auto) % Mckean % (Auto) % Eos % (Auto) % Baso % (Auto) % Immature Gran # (Auto) (0.00-0.02) K/uL Neut # (Auto) (1.4-6.5) K/uL Lymph # (Auto) (1.2-3.4) K/uL Mckean # (Auto) (0.11-0.59) K/uL Eos # (Auto) (0-0.5) K/uL Baso # (Auto) (0-0.2) K/uL Platelet Estimate (Normal) Echinocytes PT (9.0-12.0) Seconds INR (0.9-1.1) POC pH 7.49 H (7.35-7.45) POC pCO2 30 L (35-46) mmHg POC pO2 69 L (80-95) mmHg POC HCO3 23 (19-24) juve/L POC Total CO2 24 (24-31) mmol/L POC Base Excess 0.0 (-9-1.8) juve/L POC ABG O2 Sat 95.0 (90-95) % POC FiO2 35 % Sodium 147 H (136-145) mmol/L Potassium 4.0 (3.5-5.1) mmol/L Chloride 118 H (98-107) mmol/L Carbon Dioxide 24 (21-32) mmol/L Anion Gap 5.0 (3-11) BUN 38 H (7-18) mg/dl Creatinine 1.09 (0.6-1.4) mg/dl Est Cr Clr Drug Dosing 48.4 ml/min Est GFR ( Amer) 74.4 Est GFR (Non-Af Amer) 64.2 BUN/Creatinine Ratio 34.6 H (10-20) Glucose 156 H (70-99) mg/dl POC Glucose 157 H (70-99) mg/dl POC Glucose (other) (70-99) mg/dl Calcium 7.9 L (8.5-10.1) mg/dl Phosphorus 3.2 (2.5-4.9) mg/dl Magnesium 2.2 (1.8-2.4) mg/dl Total Bilirubin 0.9 (0.2-1) mg/dl AST 29 (15-37) U/L ALT 24 (12-78) U/L Alkaline Phosphatase 52 (45-117) U/L Total Protein 4.5 L (6.4-8.2) gm/dl Albumin 1.8 L (3.4-5.0) gm/dl Globulin 2.7 (2.5-4.0) gm/dl Albumin/Globulin Ratio 0.7 L (0.9-2) 02/23/20 02/23/20 02/23/20 Range/Units 04:23 04:23 01:27 WBC 8.19 (4.8-10.8) K/uL RBC 2.38 L (4.7-6.1) M/uL Hgb 7.7 L (14.0-18.0) g/dL Hct 23.0 L (42-52) % MCV 96.6 (80-100) fL MCH 32.4 (25-34) pg MCHC 33.5 (32-36) g/dL RDW Std Deviation 52.1 H (36.4-46.3) fL RDW Coeff of Scott 15.2 H (11.5-14.5) % Plt Count 99 L (130-400) K/uL MPV 10.0 (7.4-10.4) fL Immature Gran % (Auto) 3.9 % Neut % (Auto) 79.7 % Lymph % (Auto) 7.3 % Mckean % (Auto) 9.0 % Eos % (Auto) 0.0 % Baso % (Auto) 0.1 % Immature Gran # (Auto) 0.32 H (0.00-0.02) K/uL Neut # (Auto) 6.52 H (1.4-6.5) K/uL Lymph # (Auto) 0.60 L (1.2-3.4) K/uL Mckean # (Auto) 0.74 H (0.11-0.59) K/uL Eos # (Auto) 0.00 (0-0.5) K/uL Baso # (Auto) 0.01 (0-0.2) K/uL Platelet Estimate Decreased L (Normal) Echinocytes 1+ PT 15.3 H (9.0-12.0) Seconds INR 1.5 H (0.9-1.1) POC pH (7.35-7.45) POC pCO2 (35-46) mmHg POC pO2 (80-95) mmHg POC HCO3 (19-24) juve/L POC Total CO2 (24-31) mmol/L POC Base Excess (-9-1.8) juve/L POC ABG O2 Sat (90-95) % POC FiO2 % Sodium (136-145) mmol/L Potassium (3.5-5.1) mmol/L Chloride (98-107) mmol/L Carbon Dioxide (21-32) mmol/L Anion Gap (3-11) BUN (7-18) mg/dl Creatinine (0.6-1.4) mg/dl Est Cr Clr Drug Dosing ml/min Est GFR ( Amer) Est GFR (Non-Af Amer) BUN/Creatinine Ratio (10-20) Glucose (70-99) mg/dl POC Glucose 196 H (70-99) mg/dl POC Glucose (other) (70-99) mg/dl Calcium (8.5-10.1) mg/dl Phosphorus (2.5-4.9) mg/dl Magnesium (1.8-2.4) mg/dl Total Bilirubin (0.2-1) mg/dl AST (15-37) U/L ALT (12-78) U/L Alkaline Phosphatase (45-117) U/L Total Protein (6.4-8.2) gm/dl Albumin (3.4-5.0) gm/dl Globulin (2.5-4.0) gm/dl Albumin/Globulin Ratio (0.9-2) 02/22/20 02/22/20 02/22/20 Range/Units 19:53 15:25 13:15 WBC (4.8-10.8) K/uL RBC (4.7-6.1) M/uL Hgb (14.0-18.0) g/dL Hct (42-52) % MCV (80-100) fL MCH (25-34) pg MCHC (32-36) g/dL RDW Std Deviation (36.4-46.3) fL RDW Coeff of Scott (11.5-14.5) % Plt Count (130-400) K/uL MPV (7.4-10.4) fL Immature Gran % (Auto) % Neut % (Auto) % Lymph % (Auto) % Mckean % (Auto) % Eos % (Auto) % Baso % (Auto) % Immature Gran # (Auto) (0.00-0.02) K/uL Neut # (Auto) (1.4-6.5) K/uL Lymph # (Auto) (1.2-3.4) K/uL Mckean # (Auto) (0.11-0.59) K/uL Eos # (Auto) (0-0.5) K/uL Baso # (Auto) (0-0.2) K/uL Platelet Estimate (Normal) Echinocytes PT (9.0-12.0) Seconds INR (0.9-1.1) POC pH (7.35-7.45) POC pCO2 (35-46) mmHg POC pO2 (80-95) mmHg POC HCO3 (19-24) juve/L POC Total CO2 (24-31) mmol/L POC Base Excess (-9-1.8) juve/L POC ABG O2 Sat (90-95) % POC FiO2 % Sodium (136-145) mmol/L Potassium (3.5-5.1) mmol/L Chloride (98-107) mmol/L Carbon Dioxide (21-32) mmol/L Anion Gap (3-11) BUN (7-18) mg/dl Creatinine (0.6-1.4) mg/dl Est Cr Clr Drug Dosing ml/min Est GFR ( Amer) Est GFR (Non-Af Amer) BUN/Creatinine Ratio (10-20) Glucose (70-99) mg/dl POC Glucose 192 H 219 H (70-99) mg/dl POC Glucose (other) 190 H (70-99) mg/dl Calcium (8.5-10.1) mg/dl Phosphorus (2.5-4.9) mg/dl Magnesium (1.8-2.4) mg/dl Total Bilirubin (0.2-1) mg/dl AST (15-37) U/L ALT (12-78) U/L Alkaline Phosphatase (45-117) U/L Total Protein (6.4-8.2) gm/dl Albumin (3.4-5.0) gm/dl Globulin (2.5-4.0) gm/dl Albumin/Globulin Ratio (0.9-2) Coding Level of Care Code Critical Care 1st 30-74 mins Diagnoses Encephalopathy acute G93.40 ARDS (adult respiratory distress syndrome) J80 Septic shock A41.9; R65.21 Aspiration pneumonia J69.0 Acute kidney injury superimposed on CKD N17.9; N18.9 Elevated INR R79.1 S/P TIPS (transjugular intrahepatic portosystemic shunt) Z95.828 Hepatic insufficiency K72.90 Chronic liver disease and cirrhosis K74.60; K76.9 Tracheomalacia, acquired J39.8 Anemia D64.9 Mucoid impaction of bronchi J98.09 Goals of care, counseling/discussion Z71.89 Time Spent (min) 50 Comment I have personally spent 50 minutes of critical care time in the direct management of this patient. This is a life/limb threatening event. This includes time spent evaluating patient, direct bedside care, chart review, placing orders, interpretation of diagnostic studies, discussion with consultants, patient, and/or family members regarding treatment decisions, as well as other required patient management activities. This time is exclusive of all separately billable procedures, and teaching time and separate from and in addition to any other critical care service time.
[2020-02-23] MEDS: CHLOROTHIAZIDE SODIUM 500 MG in DEXTROSE 5% 50 ML IV SCH ×2 (11:39→18:19)
--- NOTE | 2020-02-23 11:47 | Cardiology Progress Note ---
Date of Service February 23, 2020 Assessment & Plan (1) Paroxysmal A-fib: (2) NSTEMI (non-ST elevated myocardial infarction): (3) Septic shock: (4) Aspiration pneumonia: (5) ARDS (adult respiratory distress syndrome): (6) Upper GI bleed: (7) Anemia: (8) Incarcerated umbilical hernia: NSTEMI/Ischemic heart disease versus stress-induced cardiomyopathy noted on admission. Ejection fraction is moderately reduced at 35 to 40%. Repeat x-ray performed today demonstrates improvement of bilateral airspace opacities. Continue to utilize Lasix as needed daily pending clinical evaluation/review of x-ray. High-dose Aldactone on hold since admission due to hypotension. Monitor urinary output, renal function, and fluid balance daily. No recurrent atrial fibrillation overnight. Continue IV metoprolol as needed. Consider addition of low-dose metoprolol 2.5 mg IV every 6 hours if salvos of atrial fibrillation become more frequent. Potassium and magnesium supplemented appropriately. Hemoglobin trending downward (7.7 today). Monitor. Patient is not a candidate for anticoagulation, antiplatelet, or statin therapy at this time. Subjective Patient seen and examined at the bedside. Remains sedated on ventilator. Vasopressors discontinued. Hemoglobin trending downward to 7.7 today. No recurrent atrial fibrillation on telemetry. No cardiovascular concerns reported per nursing. Review of Systems Review of Systems: Unobtainable due to endotracheal tube Physical Exam Constitutional: + ill appearing; no acute distress Respiratory: Auscultation: no crackles, no rales, no rhonchi and no wheezes Cardiovascular: Rate/Rhythm: regular rate and regular rhythm Heart Sounds: normal S1 and normal S2; no murmur Gastrointestinal (Abdomen): Inspection/Auscultation: abdomen not distended Percussion/Palpation: abdomen soft; no guarding and abdomen not rigid Skin: no rashes, warm and dry Neurologic: moves all extremities Results & Data Vital Signs (Past 12 Hours) Vital Signs Pulse Resp BP Pulse Ox 02/23/20 10:40 62 14 95 02/23/20 07:23 56 L 13 94 02/23/20 05:06 45 L 14 91 02/23/20 04:00 49 L 02/23/20 03:40 49 L 82/43 L 91 02/23/20 02:40 68 132/78 96 02/23/20 02:02 49 L 12 91 02/23/20 01:40 55 L 99/56 L 92 02/23/20 00:40 58 L 92/49 L 91 02/23/20 00:00 46 L
--- NOTE | 2020-02-23 13:41 | Hospitalist Progress Note ---
Date of Service February 23, 2020 Assessment & Plan (1) Incarcerated ventral hernia: (2) SBO (small bowel obstruction): -Present on admission on 02/16/2020 with altered mental status, abdominal distention, with vomiting -admission CT abd/pelvis showed highly concerning for a high-grade partial or complete small bowel obstruction. This may be due to interval development of a herniated short segment of small bowel within the ventral hernia. -Operation Date 02/16/20 Incarcerated Ventral Hernia x 2, Small bowel Obstruction -during the hospital stay subsequently, patient remained intubated, and could have recurrent ventral hernia but based on pulmonary status there are no plans for further surgical procedures -when intubated, patient was on feeds through OG tube and also on IV protonics -patient extubated on 02/23/2020 and concerns of ICU evaluations has been whether or not patient can survive off mechanical ventilator; will need dysphagia screening, and speech and swallow evalaution (3) Aspiration pneumonia: -patient has been managed in ICU for Acute respiratory distress syndrome (ARDS) / aspiration pneumonia and -patient on IV steroids -patient is also getting IV diuretics as per ICU physician to help with pulmonary edema -since 02/16/2020, patient has been on Zosyn, continue Zosyn for now (4) Cirrhosis: -history of Cirrhosis with ascites. S/P TIPS in 2019. Requires recurrent paracentesis in previous hospital presentations (5) Acute hepatic encephalopathy: -admission CT head showed no acute intracranial abnormality -admission ammonia level on admission 90 -MRI brain 02/20/2020: No evidence for an acute ischemic event. Age-related chronic small vessel change and atrophy. No evidence for abnormal postcontrast enhancement. -Lactulose, IV thiamine Hypernatremia -serum sodium 147 on 02/23/2020. patient on diuretics (6) Acute kidney injury superimposed on CKD: -admission creatinine 1.6 -currently creatinine at baseline -patient is also getting IV diuretics as per ICU physician to help with pulmonary edema (7) NSTEMI (non-ST elevated myocardial infarction): -Troponin peaked to 7.5 on this admission but without acute EKG changes, echocardiogram showed hypokinesis to akinesis with sparing of the basal segment with EF 35-40 % -Finding suggestive of a stress-induced cardiomyopathy with left ventricular apical ballooning pattern rather than an ST segment elevation myocardial infarction -also not on systemic anticoagulation because of concern of GI bleed and because of history of recurrent paracentesis (8) Paroxysmal A-fib: -Consider addition of low-dose metoprolol 2.5 mg IV every 6 hours if salvos of atrial fibrillation become more frequent -supplement Potassium and magnesium as needed (9) Acute upper GI bleed: -admission Hgb as 12.9 with coffee ground emesis in ER. -patient has been give IV protonix on this admission and hemoglobin has generally trended down to 9 and then 8. Hgb is 7.7 on 02/23/2020 -monitor CBC. Patient's family Isamar gave verbal consent over the phone. will trend CBC, will send FOBT DVT prophylaxis: SCDs CODE STATUS DNR/DNI Family Daughter Isamar [phone]; [phone] Son Slick [phone] Daughter in Law Noelle [phone] Admission and Anticipated Discharge Date Admission Date: February 16, 2020 Subjective Patient extubated on 02/23/2020 and breathing on oxygen mask. Patient moves upper extremities and asks for assistance to be repositioned. He is verbal but cannot focus to answer much questions. His son Slick at the bedside and we discussed hospital course to date. Review of Systems Review of Systems: Unobtainable due to cognitive status Physical Exam Constitutional: + frail appearing Eyes: PERRL, conjunctivae normal, anicteric sclerae ENMT: external ear and nose normal, oropharynx normal Neck: normal visual inspection Respiratory: normal respiratory effort Cardiovascular: Rate/Rhythm: + bradycardic Gastrointestinal (Abdomen): Percussion/Palpation: abdomen soft Musculoskeletal: Head/Neck/Chest: normocephalic Neurologic: PERRL, EOMI, accommodation nl, no face palsy, no dysarthria Psychiatric: Eye Contact: + poor eye contact Results & Data Results & Data ([facility]) Vital Signs (Past 12 Hours) Vital Signs Pulse Resp BP Pulse Ox 02/23/20 10:40 62 14 95 02/23/20 07:23 56 L 13 94 02/23/20 05:06 45 L 14 91 02/23/20 04:00 49 L 02/23/20 03:40 49 L 82/43 L 91 02/23/20 02:40 68 132/78 96 02/23/20 02:02 49 L 12 91 02/23/20 01:40 55 L 99/56 L 92
[2020-02-23] MEDS ORDERED: SODIUM CHLORIDE 0.9% 250 ML IV PRN (14:35)
[2020-02-23 15:07] LABS: Hematocrit (blood only) 24.8 % (42-52); Hemoglobin 8.3 g/dL (14.0-18.0); Mean Corpuscular Hemoglobin 32.2 pg (25-34); Mean Corpuscular Hgb Conc 33.5 g/dL (32-36); Mean Corpuscular Volume 96.1 fL (80-100); RDW Coefficient of Variation 15.2 % (11.5-14.5); RDW Standard Deviation 51.7 fL (36.4-46.3); Red Blood Count 2.58 M/uL (4.7-6.1); White Blood Count 8.12 K/uL (4.8-10.8)
[2020-02-23 15:20] LABS: Mean Platelet Volume 10.5 fL (7.4-10.4); Platelet Count 99 K/uL (130-400)
--- NOTE | 2020-02-23 17:02 | Surgery Progress Note ---
Date of Service February 23, 2020 Assessment & Plan (1) Incarcerated ventral hernia: extubated for approx 5 hours now. sats ok on 40% fi02 still poor prognosis no abdominal/surgical issues. if he improves over next 24-48 hours will need to address nutrition. Subjective pt seen. extubated around noon today. awake/alert but somewhat confused. denies pain. in NAD Physical Exam Physical Exam: alert but confused. nad abd: soft. incision looks good. no drainage. no evidence of recurrent hernia. no sign of infection Results & Data Vital Signs (Past 12 Hours) Vital Signs Pulse Resp BP Pulse Ox 02/23/20 14:40 64 19 101/49 L 93 02/23/20 14:00 62 24 94 02/23/20 13:40 56 L 19 102/55 L 93 02/23/20 13:00 63 17 93 02/23/20 12:40 57 L 15 101/53 L 92 02/23/20 12:00 63 95 02/23/20 11:40 59 L 117/61 94 02/23/20 11:00 63 94 02/23/20 10:40 53 L 14 111/56 L 96 02/23/20 10:00 49 L 94 02/23/20 09:40 49 L 94/52 L 94 02/23/20 09:00 50 L 96 02/23/20 08:40 54 L 89/51 L 97 02/23/20 07:40 53 L 90/46 L 95 02/23/20 07:31 55 L 89/50 L 96 02/23/20 07:23 56 L 13 94 02/23/20 05:06 45 L 14 91 PG Care Time/CCT Total # of Minutes Spent Total Time Spent with Patient: Total time spent is greater than 50% in coordination of care (as documented) at patient's floor/unit and/or counseling patient: Coding Level of Care Code None Diagnoses Incarcerated ventral hernia K43.6
[2020-02-24] MEDS: PIPERACILLIN/TAZOBACTAM 4.5 GM in DEXTROSE 5% 100 ML IV SCH ×3 (01:19→16:49)
[2020-02-24] MEDS: CHLOROTHIAZIDE SODIUM 500 MG in DEXTROSE 5% 50 ML IV SCH (01:21)
[2020-02-24 04:16] LABS: Hematocrit (blood only) 24.4 % (42-52); Hemoglobin 8.3 g/dL (14.0-18.0); Mean Corpuscular Hemoglobin 32.4 pg (25-34); Mean Corpuscular Volume 95.3 fL (80-100); RDW Coefficient of Variation 15.3 % (11.5-14.5); RDW Standard Deviation 51.2 fL (36.4-46.3); Red Blood Count 2.56 M/uL (4.7-6.1); White Blood Count 10.58 K/uL (4.8-10.8)
[2020-02-24] MEDS: INSULIN ASPART 100 UNITS/ML 3 ML PEN SC SCH ×6 (04:31→23:51)
[2020-02-24 04:33] LABS: BUN Creatinine Ratio 29.1 (10-20); Calcium 8.1 mg/dl (8.5-10.1); Creatinine Clr Calc Pharmacy 52.4 ml/min; Est GFR (African American) 75.3; Est GFR (Non-African American) 64.9; Magnesium 2.1 mg/dl (1.8-2.4); Potassium 3.6 mmol/L (3.5-5.1)
[2020-02-24 04:36] LABS: Albumin Globulin Ratio 0.7 (0.9-2); Bilirubin,Total 1.2 mg/dl (0.2-1); Globulin 2.7 gm/dl (2.5-4.0); Phosphorus 3.2 mg/dl (2.5-4.9); Total Protein 4.7 gm/dl (6.4-8.2)
[2020-02-24 04:45] LABS: Platelet Count 91 K/uL (130-400)
[2020-02-24 04:46] LABS: Basophils # (auto) 0.02 K/uL (0-0.2); Basophils % (auto) 0.2 %; Eosinophils # (auto) 0.01 K/uL (0-0.5); Eosinophils % (auto) 0.1 %; Giant Platelets 1+; Immature Granulocytes # (auto) 0.26 K/uL (0.00-0.02); Immature Granulocytes % (auto) 2.5 %; Lymphocytes # (auto) 0.79 K/uL (1.2-3.4); Lymphocytes % (auto) 7.5 %; Monocytes % (auto) 7.6 %; Neutrophils % (auto) 82.1 %
[2020-02-24] MEDS: HEPARIN SOD 5,000 UNIT/0.5 ML VIAL SQ SCH ×3 (05:02→20:33)
--- NOTE | 2020-02-24 07:11 | Surgery Progress Note ---
Date of Service February 24, 2020 Assessment & Plan (1) Incarcerated ventral hernia: pt extubated/off pressors will need speech/swallowing eval prior to initiating diet but pt can be advanced from my perspective no surgical issues. will sign off. please call if we can assist. Subjective pt seen. awake/alert. denies pain. Physical Exam Physical Exam: alert. somewhat disoriented. NAD. abd: soft. nt. wound looks good. no drainage or erythema. Results & Data Vital Signs (Past 12 Hours) Vital Signs Temp Pulse Resp BP Pulse Ox 02/24/20 06:00 59 L 18 97/51 L 94 02/24/20 05:00 55 L 19 95/50 L 94 02/24/20 04:00 36.7 C 67 21 91/50 L 93 02/24/20 03:00 66 20 92/50 L 93 02/24/20 02:00 64 20 101/47 L 92 02/24/20 01:00 64 21 100/54 L 93 02/24/20 00:00 36.6 C 63 21 99/47 L 91 02/23/20 23:00 61 22 95/54 L 92 02/23/20 22:00 57 L 22 100/57 L 93 02/23/20 21:00 63 19 97/42 L 96 02/23/20 20:00 36.5 C 62 20 111/56 L 93 PG Care Time/CCT Total # of Minutes Spent Total Time Spent with Patient: Total time spent is greater than 50% in coordination of care (as documented) at patient's floor/unit and/or counseling patient: Coding Level of Care Code None Diagnoses Incarcerated ventral hernia K43.6
[2020-02-24] MEDS: LACTULOSE SYRUP 20 GM/30 ML UDC PO SCH ×2 (07:58→20:30)
[2020-02-24] MEDS: PANTOprazole 40 MG in SYRINGE 0 ML IV SCH (08:34)
[2020-02-24] MEDS: THIAMINE HCL IV SCH (08:36)
[2020-02-24] MEDS: SODIUM CHLORIDE 0.9% IV SCH (08:36)
[2020-02-24] MEDS: FAMOTIDINE 40 MG TABLET PO SCH (09:57)
--- NOTE | 2020-02-24 10:30 | Critical Care Progress Note ---
Date of Service February 24, 2020 Assessment & Plan (1) S/P admission to ICU (intensive care unit): PLAN: Neuro: Acute encephalopathy: Multifactorial -Continue lactulose -Adding rifaximin, okay per gastroenterology Resp: Aspiration of gastric contents into airway: Resolved Aspiration pneumonitis: Resolved Acute respiratory distress syndrome: Resolved Acute hypoxic respiratory failure: Resolved Mucoid impaction in right and left lower bronchi: Resolved -Status post bronchoscopy 02/21 Moderate tracheomalacia: Acquired: left lung CV: History paroxysmal atrial fibrillation: Anticoagulation contraindicated at this time Non-ST elevated myocardial infarction: Improved: Troponins were downtrending Cardiomyopathy -Attempt to add metoprolol at some point -Avoiding Midrin at this time Hypotension: Improved -We are not escalating care the patient, would not restart vasoactive's Fluids/Renal: Acute kidney injury: Resolved -Diuril x2 for hypernatremia and total body water accumulation -Creatinine still improving/optimized Discontinue Gustafson, condom cath as needed for hygiene ID: Continue Zosyn: 10-day course Lidia albicans isolated from bronc: Consider this to be colonization GI/Nutrition: Trickle feeds -To continue, seen by speech and had putting coming from nose Multivitamins for optimal wound healing Heme: Postop anemia: Stable Thrombocytopenia: Trend every 3 days, unlikely to represents HIT -Consider anemia of chronic disease as well as underlying bone marrow suppression from chronic disease and current critical illness DVT prophylaxis: Heparin subcu Endocrine: ICU hyperglycemia protocol Discontinued steroids as patient was extubated as per DEX study Vascular access: Right IJ: Discontinue if possible and obtain peripherally guided ultrasound Code Status: DNR in event of cardiac arrest, DO NOT INTUBATE in event of respiratory insufficiency, no escalation of care for high acuity/high risk procedures Disposition: Starting to plan for subacute rehab versus LTAC versus fpc I updated the patient's daughter, patient was discussed on multi-disciplinary arounds (3) Septic shock: (4) Aspiration pneumonia: (5) Acute kidney injury superimposed on CKD: (6) Elevated INR: (7) S/P TIPS (transjugular intrahepatic portosystemic shunt): (8) Hepatic insufficiency: (9) Chronic liver disease and cirrhosis: (10) Tracheomalacia, acquired: (11) Anemia: (12) Mucoid impaction of bronchi: (13) Goals of care, counseling/discussion: Admission and Anticipated Discharge Date Admission Date: February 16, 2020 Subjective No overnight events. During my examination the patient is out of bed into chair, increasing alertness, denies any significant pain, reported he does not feel like eating. Review of Systems Review of Systems: No chest pain or shortness of breath Physical Exam Physical Exam: General: Alert. nontoxic. Skin: Warm, dry, Head: Atraumatic Ears, nose, mouth and throat: airway patent Cardiovascular: Normal peripheral perfusion Respiratory: no respiratory distress Gastrointestinal: Non distended Musculoskeletal: No gross deformity Results & Data Results & Data ([facility]) Vital Signs (Past 12 Hours) Vital Signs Temp Pulse Resp BP Pulse Ox 02/24/20 09:41 58 L 18 93/51 L 94 02/24/20 08:41 64 24 99/61 L 95 02/24/20 08:00 36.5 C 63 15 94 02/24/20 07:41 65 21 96/54 L 94 02/24/20 06:00 59 L 18 97/51 L 94 02/24/20 05:00 55 L 19 95/50 L 94 02/24/20 04:00 36.7 C 67 21 91/50 L 93 02/24/20 03:00 66 20 92/50 L 93 02/24/20 02:00 64 20 101/47 L 92 02/24/20 01:00 64 21 100/54 L 93 02/24/20 00:00 36.6 C 63 21 99/47 L 91 02/23/20 23:00 61 22 95/54 L 92 Laboratory Results 02/24/20 02/24/20 02/24/20 Range/Units 09:00 08:30 04:08 WBC (4.8-10.8) K/uL RBC (4.7-6.1) M/uL Hgb (14.0-18.0) g/dL Hct (42-52) % MCV (80-100) fL MCH (25-34) pg MCHC (32-36) g/dL RDW Std Deviation (36.4-46.3) fL RDW Coeff of Sctot (11.5-14.5) % Plt Count (130-400) K/uL MPV (7.4-10.4) fL Immature Gran % (Auto) % Neut % (Auto) % Lymph % (Auto) % [place] % (Auto) % Eos % (Auto) % Baso % (Auto) % Immature Gran # (Auto) (0.00-0.02) K/uL Neut # (Auto) (1.4-6.5) K/uL Lymph # (Auto) (1.2-3.4) K/uL [place] # (Auto) (0.11-0.59) K/uL Eos # (Auto) (0-0.5) K/uL Baso # (Auto) (0-0.2) K/uL Giant Platelets Sodium (136-145) mmol/L Potassium (3.5-5.1) mmol/L Chloride (98-107) mmol/L Carbon Dioxide (21-32) mmol/L Anion Gap (3-11) BUN (7-18) mg/dl Creatinine (0.6-1.4) mg/dl Est Cr Clr Drug Dosing ml/min Est GFR ( Amer) Est GFR (Non-Af Amer) BUN/Creatinine Ratio (10-20) Glucose (70-99) mg/dl POC Glucose 99 131 H (70-99) mg/dl Calcium (8.5-10.1) mg/dl Phosphorus (2.5-4.9) mg/dl Magnesium (1.8-2.4) mg/dl Total Bilirubin (0.2-1) mg/dl AST (15-37) U/L ALT (12-78) U/L Alkaline Phosphatase (45-117) U/L Total Protein (6.4-8.2) gm/dl Albumin (3.4-5.0) gm/dl Globulin (2.5-4.0) gm/dl Albumin/Globulin Ratio (0.9-2) Stool Occult Bld Scrn Negative (Negative) Blood Type Antibody Screen Crossmatch 02/24/20 02/24/20 02/23/20 Range/Units 04:06 04:06 23:17 WBC 10.58 (4.8-10.8) K/uL RBC 2.56 L (4.7-6.1) M/uL Hgb 8.3 L (14.0-18.0) g/dL Hct 24.4 L (42-52) % MCV 95.3 (80-100) fL MCH 32.4 (25-34) pg MCHC 34.0 (32-36) g/dL RDW Std Deviation 51.2 H (36.4-46.3) fL RDW Coeff of Scott 15.3 H (11.5-14.5) % Plt Count 91 L (130-400) K/uL MPV 10.0 (7.4-10.4) fL Immature Gran % (Auto) 2.5 % Neut % (Auto) 82.1 % Lymph % (Auto) 7.5 % [place] % (Auto) 7.6 % Eos % (Auto) 0.1 % Baso % (Auto) 0.2 % Immature Gran # (Auto) 0.26 H (0.00-0.02) K/uL Neut # (Auto) 8.70 H (1.4-6.5) K/uL Lymph # (Auto) 0.79 L (1.2-3.4) K/uL [place] # (Auto) 0.80 H (0.11-0.59) K/uL Eos # (Auto) 0.01 (0-0.5) K/uL Baso # (Auto) 0.02 (0-0.2) K/uL Giant Platelets 1+ Sodium 146 H (136-145) mmol/L Potassium 3.6 (3.5-5.1) mmol/L Chloride 116 H (98-107) mmol/L Carbon Dioxide 22 (21-32) mmol/L Anion Gap 8.0 (3-11) BUN 31 H (7-18) mg/dl Creatinine 1.08 (0.6-1.4) mg/dl Est Cr Clr Drug Dosing 52.4 ml/min Est GFR ( Amer) 75.3 Est GFR (Non-Af Amer) 64.9 BUN/Creatinine Ratio 29.1 H (10-20) Glucose 129 H (70-99) mg/dl POC Glucose 139 H (70-99) mg/dl Calcium 8.1 L (8.5-10.1) mg/dl Phosphorus 3.2 (2.5-4.9) mg/dl Magnesium 2.1 (1.8-2.4) mg/dl Total Bilirubin 1.2 H (0.2-1) mg/dl AST 37 (15-37) U/L ALT 28 (12-78) U/L Alkaline Phosphatase 52 (45-117) U/L Total Protein 4.7 L (6.4-8.2) gm/dl Albumin 2.0 L (3.4-5.0) gm/dl Globulin 2.7 (2.5-4.0) gm/dl Albumin/Globulin Ratio 0.7 L (0.9-2) Stool Occult Bld Scrn (Negative) Blood Type Antibody Screen Crossmatch 02/23/20 02/23/20 02/23/20 Range/Units 19:49 16:30 14:45 WBC 8.12 (4.8-10.8) K/uL RBC 2.58 L (4.7-6.1) M/uL Hgb 8.3 L (14.0-18.0) g/dL Hct 24.8 L (42-52) % MCV 96.1 (80-100) fL MCH 32.2 (25-34) pg MCHC 33.5 (32-36) g/dL RDW Std Deviation 51.7 H (36.4-46.3) fL RDW Coeff of Scott 15.2 H (11.5-14.5) % Plt Count 99 L (130-400) K/uL MPV 10.5 H (7.4-10.4) fL Immature Gran % (Auto) % Neut % (Auto) % Lymph % (Auto) % [place] % (Auto) % Eos % (Auto) % Baso % (Auto) % Immature Gran # (Auto) (0.00-0.02) K/uL Neut # (Auto) (1.4-6.5) K/uL Lymph # (Auto) (1.2-3.4) K/uL [place] # (Auto) (0.11-0.59) K/uL Eos # (Auto) (0-0.5) K/uL Baso # (Auto) (0-0.2) K/uL Giant Platelets Sodium (136-145) mmol/L Potassium (3.5-5.1) mmol/L Chloride (98-107) mmol/L Carbon Dioxide (21-32) mmol/L Anion Gap (3-11) BUN (7-18) mg/dl Creatinine (0.6-1.4) mg/dl Est Cr Clr Drug Dosing ml/min Est GFR ( Amer) Est GFR (Non-Af Amer) BUN/Creatinine Ratio (10-20) Glucose (70-99) mg/dl POC Glucose 145 H 175 H (70-99) mg/dl Calcium (8.5-10.1) mg/dl Phosphorus (2.5-4.9) mg/dl Magnesium (1.8-2.4) mg/dl Total Bilirubin (0.2-1) mg/dl AST (15-37) U/L ALT (12-78) U/L Alkaline Phosphatase (45-117) U/L Total Protein (6.4-8.2) gm/dl Albumin (3.4-5.0) gm/dl Globulin (2.5-4.0) gm/dl Albumin/Globulin Ratio (0.9-2) Stool Occult Bld Scrn (Negative) Blood Type Antibody Screen Crossmatch 02/23/20 02/23/20 Range/Units 14:45 13:41 WBC (4.8-10.8) K/uL RBC (4.7-6.1) M/uL Hgb (14.0-18.0) g/dL Hct (42-52) % MCV (80-100) fL MCH (25-34) pg MCHC (32-36) g/dL RDW Std Deviation (36.4-46.3) fL RDW Coeff of Scott (11.5-14.5) % Plt Count (130-400) K/uL MPV (7.4-10.4) fL Immature Gran % (Auto) % Neut % (Auto) % Lymph % (Auto) % [place] % (Auto) % Eos % (Auto) % Baso % (Auto) % Immature Gran # (Auto) (0.00-0.02) K/uL Neut # (Auto) (1.4-6.5) K/uL Lymph # (Auto) (1.2-3.4) K/uL [place] # (Auto) (0.11-0.59) K/uL Eos # (Auto) (0-0.5) K/uL Baso # (Auto) (0-0.2) K/uL Giant Platelets Sodium (136-145) mmol/L Potassium (3.5-5.1) mmol/L Chloride (98-107) mmol/L Carbon Dioxide (21-32) mmol/L Anion Gap (3-11) BUN (7-18) mg/dl Creatinine (0.6-1.4) mg/dl Est Cr Clr Drug Dosing ml/min Est GFR ( Amer) Est GFR (Non-Af Amer) BUN/Creatinine Ratio (10-20) Glucose (70-99) mg/dl POC Glucose 163 H (70-99) mg/dl Calcium (8.5-10.1) mg/dl Phosphorus (2.5-4.9) mg/dl Magnesium (1.8-2.4) mg/dl Total Bilirubin (0.2-1) mg/dl AST (15-37) U/L ALT (12-78) U/L Alkaline Phosphatase (45-117) U/L Total Protein (6.4-8.2) gm/dl Albumin (3.4-5.0) gm/dl Globulin (2.5-4.0) gm/dl Albumin/Globulin Ratio (0.9-2) Stool Occult Bld Scrn (Negative) Blood Type O Positive Antibody Screen NEGATIVE Crossmatch See Detail Coding Level of Care Code 72575 Subseq Hosp Care Lvl 3 Diagnoses S/P admission to ICU (intensive care unit)
[2020-02-24] MEDS ORDERED: POTASSIUM PHOS 3 MMOL/1 ML INFUSION IV STA (10:58)
[2020-02-24] MEDS ORDERED: hydroCHLOROthiazide 25 MG TAB PO STA (10:58)
[2020-02-24] MEDS ORDERED: POTASSIUM CHLORIDE 20 MEQ/15 ML UDC PO STA (11:00)
[2020-02-24] MEDS ORDERED: POTASSIUM PHOSPHATE 9 MMOL in SODIUM CHLORIDE 0.9% 250 ML IV ONE (11:15)
[2020-02-24] MEDS ORDERED: POTASSIUM ACETATE 10 MEQ in 0.9 % SODIUM CHLORIDE 100 ML IV ONE (11:15)
--- NOTE | 2020-02-24 12:11 | XRay Report ---
KUB HISTORY: Status post placement of a feeding tube coresafe placement COMPARISON: KUB 02/16/2020 FINDINGS: Status post placement of a feeding tube, distal tip projected superiorly within the region of the pylorus/antrum. TIPS shunt. Air is noted within both loops of large and small bowel. There is decreased small bowel distention. Cholecystectomy. There is no organomegaly. No renal calculi. No ur eteral calculi. No pneumoperitoneum or pneumatosis. Degenerative changes of the spine, pelvis and hip s. No fracture. Cardiomegaly with left lung base opacities. IMPRESSION: Status post placement of a feeding tube, distal tip projected within the expected location of the pyl orus/antrum. ACT 112: Negative or not required by law. The above report was generated using voice recognition software. It may contain grammatical, syntax o r spelling errors. Electronically signed by: John Razo M.D. 02/24/2020 12:09 PM
--- NOTE | 2020-02-24 12:22 | Cardiology Progress Note ---
Date of Service February 24, 2020 Assessment & Plan (1) Paroxysmal A-fib: (2) NSTEMI (non-ST elevated myocardial infarction): (3) Septic shock: (4) Aspiration pneumonia: (5) ARDS (adult respiratory distress syndrome): (6) Upper GI bleed: (7) Anemia: (8) Incarcerated umbilical hernia: NSTEMI/Ischemic heart disease versus stress-induced cardiomyopathy noted on admission. Ejection fraction is moderately reduced at 35 to 40%. Consider repeat limited 2D transthoracic echocardiogram tomorrow for reassessment of apical wall motion abnormality. Patient appears euvolemic. Restart Aldactone as blood pressure improves. No recurrent atrial fibrillation overnight. Continue IV metoprolol as needed. Hemoglobin mildly improved today (8.3). Monitor. Patient is not a candidate for anticoagulation, antiplatelet, or statin therapy at this time. Subjective Patient seen and examined at the bedside. Extubated yesterday. Denies pain or palpitations. No evidence of recurrent atrial fibrillation on telemetry. Blood pressure remains borderline hypotensive. No orthopnea, PND, or lower extremity edema. Patient offers no concerns/complaints this time. Review of Systems Review of Systems: All systems reviewed & are unremarkable except as noted in HPI & below Physical Exam Constitutional: + ill appearing; no acute distress Respiratory: Auscultation: no crackles, no rales, no rhonchi and no wheezes Cardiovascular: Rate/Rhythm: regular rate and regular rhythm Heart Sounds: normal S1 and normal S2; no murmur Gastrointestinal (Abdomen): Inspection/Auscultation: abdomen not distended Percussion/Palpation: abdomen soft; no guarding and abdomen not rigid Skin: no rashes, warm and dry Neurologic: moves all extremities; no focal motor deficits Results & Data Vital Signs (Past 12 Hours) Vital Signs Temp Pulse Resp BP Pulse Ox 02/24/20 10:41 60 18 102/59 L 93 02/24/20 09:41 58 L 18 93/51 L 94 02/24/20 08:41 64 24 99/61 L 95 02/24/20 08:00 36.5 C 63 15 94 02/24/20 07:41 65 21 96/54 L 94 02/24/20 06:00 59 L 18 97/51 L 94 02/24/20 05:00 55 L 19 95/50 L 94 02/24/20 04:00 36.7 C 67 21 91/50 L 93 02/24/20 03:00 66 20 92/50 L 93 02/24/20 02:00 64 20 101/47 L 92 02/24/20 01:00 64 21 100/54 L 93
--- NOTE | 2020-02-24 12:45 | Hospitalist Progress Note ---
Date of Service February 24, 2020 Assessment & Plan (1) Incarcerated ventral hernia: (2) SBO (small bowel obstruction): -Present on admission on 02/16/2020 with altered mental status, abdominal distention, with vomiting -admission CT abd/pelvis showed highly concerning for a high-grade partial or complete small bowel obstruction. This may be due to interval development of a herniated short segment of small bowel within the ventral hernia. -Operation Date 02/16/20 Incarcerated Ventral Hernia x 2, Small bowel Obstruction -there are no further plans for abdominal surgery as per general surgery service, patient was extubated on 02/23/2020 and so far has been transitioned aerosol mask and to nasal cannula oxygen. Patient did not pass speech swallow evaluations so NG tube was placed for feeds on 02/24/2020 and the IV protonics is transitioned to oral famotidine (3) Aspiration pneumonia: -patient has been managed in ICU for Acute respiratory distress syndrome (ARDS) / aspiration pneumonia -had remained intubated from admission and extubated on 02/23/2020 after undergoing course of IV steroids, IV antibiotics of Zosyn and diuretics as per IC physician -as of 02/24/2020, patient remains in ICU level of care and between periods of supplementary oxygen of aerosol mask and nasal cannula oxygen. continues to be on IV Zosyn has completed IV steroids, has received duiretics as per -patient is also getting IV diuretics as per ICU physician to help with pulmonary edema -since 02/16/2020, patient has been on Zosyn, continue Zosyn for now (4) Cirrhosis: -history of Cirrhosis with ascites. S/P TIPS in 2019. Requires recurrent paracentesis in previous hospital presentations (5) Acute hepatic encephalopathy: -admission CT head showed no acute intracranial abnormality -admission ammonia level on admission 90 -MRI brain 02/20/2020: No evidence for an acute ischemic event. Age-related chronic small vessel change and atrophy. No evidence for abnormal postcontrast enhancement. -on Lactulose, IV thiamine . Zinc supplements -extubated on 02/23/2020, as of 02/24/2020 patient has good mentation, responds to questions in appropriate manner, sitting up in chair. with assistance he was able to get to commode as per nursing staff. Patient denies acute pain. denies other symptoms Hypernatremia -serum sodium 146 on 02/22/2020 and the 147. patient has been on diuretics. serum sodium 146 on 02/24/2020. monitor serum sodium levels (6) Acute kidney injury superimposed on CKD: -admission creatinine 1.6 -currently creatinine at baseline (7) NSTEMI (non-ST elevated myocardial infarction): -NSTEMI/Ischemic heart disease versus stress-induced cardiomyopathy noted on admission. Ejection fraction is moderately reduced at 35 to 40%. -cardiology has plans on repeat limited 2D transthoracic echocardiogram for reassessment of apical wall motion abnormality. -as of 02/24/2020 Patient appears euvolemic and cardiology recommends future plans of restart Aldactone as blood pressure improves. -as per cardiology service Patient is not a candidate for anticoagulation, antiplatelet, or statin therapy at this time. (8) Paroxysmal A-fib: -no acute telemetry events recently, heart rates appears controlled and stable (9) Acute upper GI bleed: -admission Hgb as 12.9 with coffee ground emesis in ER. -patient has been give IV protonix on this admission and hemoglobin has generally trended down to 9 and then 8. Hgb is 7.7 on 02/23/2020 -On 02/23/2020: Patient's family Isamar gave verbal consent over the phone fo blood transfusion as needed but followup CBC above 8 so far -02/24/2020 FOBT is negative Thrombocytopenia -history of cirrhosis -platelets around 99,000 recently. monitor DVT prophylaxis: SCDs CODE STATUS DNR/DNI Family Daughter Isamar [phone]; [phone] Son Slick [phone] Daughter in Law Noelle [phone] Admission and Anticipated Discharge Date Admission Date: February 16, 2020 Subjective -extubated on 02/23/2020, so far has been transitioned aerosol mask and to nasal cannula oxygen. Patient did not pass speech swallow evaluations so NG tube was placed for feeds on 02/24/2020 and the IV protonics is transitioned to oral famotidine as of 02/24/2020 patient has good mentation, responds to questions in appropriate manner, sitting up in chair. with assistance he was able to get to commode as per nursing staff. Patient denies acute pain. denies other symptoms Review of Systems Review of Systems: All systems reviewed & are unremarkable except as noted in Subjective Physical Exam Constitutional: + frail appearing Eyes: PERRL, conjunctivae normal, anicteric sclerae ENMT: external ear and nose normal, oropharynx normal Neck: normal visual inspection Respiratory: normal respiratory effort Cardiovascular: Rate/Rhythm: + bradycardic Gastrointestinal (Abdomen): abdomen with binder Musculoskeletal: Head/Neck/Chest: normocephalic Neurologic: PERRL, EOMI, accommodation nl, no face palsy, no dysarthria Psychiatric: Orientation: alert and cooperative Results & Data Results & Data ([facility]) Vital Signs (Past 12 Hours) Vital Signs Temp Pulse Resp BP Pulse Ox 02/24/20 10:41 60 18 102/59 L 93 02/24/20 09:41 58 L 18 93/51 L 94 02/24/20 08:41 64 24 99/61 L 95 02/24/20 08:00 36.5 C 63 15 94 02/24/20 07:41 65 21 96/54 L 94 02/24/20 06:00 59 L 18 97/51 L 94 02/24/20 05:00 55 L 19 95/50 L 94 02/24/20 04:00 36.7 C 67 21 91/50 L 93 02/24/20 03:00 66 20 92/50 L 93 02/24/20 02:00 64 20 101/47 L 92 02/24/20 01:00 64 21 100/54 L 93
--- NOTE | 2020-02-24 15:41 | Palliative Care Progress Note ---
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 In Ed, patient had coffee ground emesis, was lethargic and not answering questions. he was intubated. CT abd/pelvis showed high-grade partial or complete SBO due to herniated short segment of small bowel within the ventral hernia. OG tube placed for decompression. Ammonia elevated at 90, CT head showed nothing acute. Patient was also noted to have elevated troponin and some ST elevated on EKG, however, no cardiac catheterization performed as patient taken to the OR for emergent open repair of ventral hernia and small bowel release. Post-operatively, patient sent to ICU, intubated and on pressors. Labs were monitored closely, and CXR had some increased bilateral opacities. He was treated for CHF exacerbation with IV Lasix. Patient remained sedated on ventilator, moving all extremities but not following commands. Procalcitonin was trending upwards, troponin trending down. Bronchoscopy performed on 02/16 to evaluation for alveolar hemorrhage, none found. While patient seemed to stabilize from a cardiac standpoint with decrease in pressors, respiratory status worsened to development of ARDS per director of managed care. Patient on high dose Decadron with close monitoring for GI bleed. Patient was extubated on 02/21-is stable on O2 at 2 L. Still not following commands, speech is garbled. -Current plan is to continue current care. Patient is now DNR. Patient currently receiving NG feeds, continue [facility] -Palliative care is following along and will engage with family as needed to as sist family with medical decision making and discussing goals of care. -Prognosis is guarded, patient remains critically ill (2) ARDS (adult respiratory distress syndrome): (3) Chronic liver disease and cirrhosis: Subjective Patient seen and examined in room 109. No family at bedside. Patient was extubated on the afternoon of 02/21-patient currently sitting up in a chair, on O2 at 2 L. Patient with mumbled speech, unable to follow simple commands. Nursing reports patient failed bedside swallow-currently has an NG tube in place Review of Systems Review of Systems: Unobtainable due to cognitive status Physical Exam Physical Exam: PE: Patient sitting in chair at bedside in the ICU, does not appear to be in any distress HEENT: EOMI, [id number]-hearing aids in place, NG feeding tube in place Respirations: Clear breath sounds CV: Regular rate, no edema Abdomen: Soft, no signs of discomfort on palpation Neuro: Patient with significant cognitive deficits, unable to follow commands, mumbled speech. Positive dysphasia Results & Data Vital Signs (Past 12 Hours) Vital Signs Temp Pulse Resp BP Pulse Ox 02/24/20 15:16 98.1 F 02/24/20 15:07 58 L 22 87/45 L 97 02/24/20 13:29 56 L 21 93/50 L 94 02/24/20 13:07 55 L 21 88/51 L 91 02/24/20 12:41 97.9 F 55 L 17 96/58 L 95 02/24/20 11:41 60 19 95/54 L 96 02/24/20 10:41 60 18 102/59 L 93 02/24/20 09:41 58 L 18 93/51 L 94 02/24/20 08:41 64 24 99/61 L 95 02/24/20 08:00 97.7 F 63 15 94 02/24/20 07:41 65 21 96/54 L 94 02/24/20 06:00 59 L 18 97/51 L 94 02/24/20 05:00 55 L 19 95/50 L 94 02/24/20 04:00 98.1 F 67 21 91/50 L 93 PG Care Time/CCT Total # of Minutes Spent Total Time Spent with Patient: Total time spent 25 minutes with greater than 50% of the time evaluating patient's current status and collaborating with ICU staff Coding Level of Care Code 01165 Subseq Hosp Care Lvl 2 Diagnoses Goals of care, counseling/discussion Z71.89 ARDS (adult respiratory distress syndrome) J80 Chronic liver disease and cirrhosis K74.60; K76.9 Time Spent (min) 25
[2020-02-24] MEDS: RIFAXIMIN 550 MG TABLET PO SCH (20:30)
[2020-02-25] MEDS: PIPERACILLIN/TAZOBACTAM 4.5 GM in DEXTROSE 5% 100 ML IV SCH ×3 (01:18→16:33)
[2020-02-25] MEDS: INSULIN ASPART 100 UNITS/ML 3 ML PEN SC SCH ×6 (04:02→23:16)
[2020-02-25 04:34] LABS: Basophils # (auto) 0.01 K/uL (0-0.2); Basophils % (auto) 0.1 %; Eosinophils % (auto) 1.8 %; Hematocrit (blood only) 26.3 % (42-52); Immature Granulocytes # (auto) 0.35 K/uL (0.00-0.02); Immature Granulocytes % (auto) 3.1 %; Lymphocytes # (auto) 0.94 K/uL (1.2-3.4); Lymphocytes % (auto) 8.4 %; Mean Corpuscular Hemoglobin 32.7 pg (25-34); Mean Corpuscular Hgb Conc 34.2 g/dL (32-36); Mean Corpuscular Volume 95.6 fL (80-100); Mean Platelet Volume 10.3 fL (7.4-10.4); Monocytes # (auto) 0.48 K/uL (0.11-0.59); Monocytes % (auto) 4.3 %; Neutrophils # (auto) 9.18 K/uL (1.4-6.5); Neutrophils % (auto) 82.3 %; Platelet Count 102 K/uL (130-400); RDW Coefficient of Variation 16.2 % (11.5-14.5); RDW Standard Deviation 52.3 fL (36.4-46.3); Red Blood Count 2.75 M/uL (4.7-6.1); Reticulocyte % 3.8 % (0.5-2.0); White Blood Count 11.16 K/uL (4.8-10.8)
[2020-02-25 05:00] LABS: Albumin Level 1.9 gm/dl (3.4-5.0); BUN Creatinine Ratio 27.2 (10-20); Calcium 8.1 mg/dl (8.5-10.1); Creatinine Clr Calc Pharmacy 54.9 ml/min; Est GFR (African American) 81.6; Est GFR (Non-African American) 70.4; Potassium 3.6 mmol/L (3.5-5.1)
[2020-02-25 05:03] LABS: Albumin Globulin Ratio 0.7 (0.9-2); Bilirubin,Total 1.2 mg/dl (0.2-1); Globulin 2.7 gm/dl (2.5-4.0); Total Protein 4.6 gm/dl (6.4-8.2)
[2020-02-25] MEDS: HEPARIN SOD 5,000 UNIT/0.5 ML VIAL SQ SCH ×3 (05:57→20:17)
[2020-02-25] MEDS: RIFAXIMIN 550 MG TABLET PO SCH ×2 (09:12→20:17)
[2020-02-25] MEDS: ZINC SULFATE 220 MG CAPSULE PO SCH (09:12)
[2020-02-25] MEDS: LACTULOSE SYRUP 20 GM/30 ML UDC PO SCH ×3 (09:12→20:17)
[2020-02-25] MEDS: FAMOTIDINE 40 MG TABLET PO SCH (09:12)
[2020-02-25] MEDS: ASCORBIC ACID 500 MG TAB PO SCH (09:12)
[2020-02-25] MEDS: MULTIVITAMIN TAB PO SCH (09:12)
[2020-02-25] MEDS: THIAMINE HCL IV SCH (09:14)
[2020-02-25] MEDS: SODIUM CHLORIDE 0.9% IV SCH (09:14)
--- NOTE | 2020-02-25 09:23 | Critical Care Progress Note ---
Date of Service February 25, 2020 Assessment & Plan (1) S/P admission to ICU (intensive care unit): PLAN: Neuro: Acute encephalopathy: Multifactorial: Improved -Continue lactulose -Goal 1-2 bowel movements daily would scale back if he starts having diarrhea or frequent bowel movements -Adding rifaximin, okay per gastroenterology Resp: Aspiration of gastric contents into airway: Resolved Aspiration pneumonitis: Resolved Acute respiratory distress syndrome: Resolved Acute hypoxic respiratory failure: Resolved Mucoid impaction in right and left lower bronchi: Resolved -Status post bronchoscopy 02/21 Moderate tracheomalacia: Acquired: left lung CV: History paroxysmal atrial fibrillation: Anticoagulation contraindicated at this time -I believe at this junction his stroke risk is minimal compared to his risk for bleeding and or falls given his decompensation Non-ST elevated myocardial infarction: Improved: Troponins were downtrending Cardiomyopathy -Attempt to add metoprolol at some point Hypotension: Improved -We are not escalating care the patient, would not restart vasoactive's Fluids/Renal: Acute kidney injury: Resolved -Diuril x1 and Lasix x1 -Aggressive potassium repletion Discontinue Gustafson, condom cath as needed for hygiene ID: Continue Zosyn: 10-day course: Last day today: Discontinue Lidia albicans isolated from bronc: Consider this to be colonization GI/Nutrition: Severe Malnutrition -Greater than 5 pound weight loss in 2 weeks -Added Megace Tolerating tube feeding -Speech and swallow follow-up Multivitamins for optimal wound healing Heme: Postop anemia: Stable Thrombocytopenia: Trend every 3 days, unlikely to represents HIT -Consider anemia of chronic disease as well as underlying bone marrow suppression from chronic disease and current critical illness DVT prophylaxis: Heparin subcu Endocrine: ICU hyperglycemia protocol -Continued improvement Vascular access: Right IJ: Discontinue today after potassium supplementation Code Status: DNR in event of cardiac arrest, DO NOT INTUBATE in event of respiratory insufficiency, no escalation of care for high acuity/high risk procedures Disposition: Starting to plan for subacute rehab versus LTAC versus usp -Pending physical therapy and Occupational Therapy evaluations (3) Septic shock: (4) Aspiration pneumonia: (5) Acute kidney injury superimposed on CKD: (6) Elevated INR: (7) S/P TIPS (transjugular intrahepatic portosystemic shunt): (8) Hepatic insufficiency: (9) Chronic liver disease and cirrhosis: (10) Tracheomalacia, acquired: (11) Anemia: (12) Mucoid impaction of bronchi: (13) Goals of care, counseling/discussion: (2) Severe malnutrition: Admission and Anticipated Discharge Date Admission Date: February 16, 2020 Subjective No overnight events, no complaints of pain, moved his bowels. Review of Systems Review of Systems: No chest pain, no shortness of breath, no abdominal pain Physical Exam Physical Exam: General: Alert. nontoxic. Skin: Warm, dry, Head: Atraumatic Ears, nose, mouth and throat: airway patent Cardiovascular: Normal peripheral perfusion Respiratory: no respiratory distress Gastrointestinal: Non distended Musculoskeletal: No gross deformity Results & Data Results & Data ([facility]) Vital Signs (Past 12 Hours) Vital Signs Temp Pulse Resp BP Pulse Ox 02/25/20 06:00 70 24 104/58 L 90 02/25/20 05:00 61 22 122/67 95 02/25/20 04:00 36.9 C 66 22 116/63 92 02/25/20 03:00 64 20 97/57 L 100 02/25/20 02:00 62 18 100/52 L 100 02/25/20 01:00 65 20 99/51 L 98 02/25/20 00:00 37.3 C 61 21 98/55 L 100 02/24/20 23:00 66 23 98/61 L 94 02/24/20 22:00 65 20 91/45 L 94 Laboratory Results 02/25/20 02/25/20 02/25/20 Range/Units 09:11 04:15 04:15 WBC 11.16 H (4.8-10.8) K/uL RBC 2.75 L (4.7-6.1) M/uL Hgb 9.0 L (14.0-18.0) g/dL Hct 26.3 L (42-52) % MCV 95.6 (80-100) fL MCH 32.7 (25-34) pg MCHC 34.2 (32-36) g/dL RDW Std Deviation 52.3 H (36.4-46.3) fL RDW Coeff of Scott 16.2 H (11.5-14.5) % Plt Count 102 L (130-400) K/uL MPV 10.3 (7.4-10.4) fL Immature Gran % (Auto) 3.1 % Neut % (Auto) 82.3 % Lymph % (Auto) 8.4 % Randall % (Auto) 4.3 % Eos % (Auto) 1.8 % Baso % (Auto) 0.1 % Reticulocyte % (Auto) 3.8 H (0.5-2.0) % Immature Gran # (Auto) 0.35 H (0.00-0.02) K/uL Neut # (Auto) 9.18 H (1.4-6.5) K/uL Lymph # (Auto) 0.94 L (1.2-3.4) K/uL Randall # (Auto) 0.48 (0.11-0.59) K/uL Eos # (Auto) 0.20 (0-0.5) K/uL Baso # (Auto) 0.01 (0-0.2) K/uL Reticulocyte # 0.10 (0.02-0.10) 10^6/uL Sodium 144 (136-145) mmol/L Potassium 3.6 (3.5-5.1) mmol/L Chloride 115 H (98-107) mmol/L Carbon Dioxide 22 (21-32) mmol/L Anion Gap 7.0 (3-11) BUN 27 H (7-18) mg/dl Creatinine 1.01 (0.6-1.4) mg/dl Est Cr Clr Drug Dosing 54.9 ml/min Est GFR ( Amer) 81.6 Est GFR (Non-Af Amer) 70.4 BUN/Creatinine Ratio 27.2 H (10-20) Glucose 127 H (70-99) mg/dl POC Glucose 118 H (70-99) mg/dl Calcium 8.1 L (8.5-10.1) mg/dl Phosphorus 3.0 (2.5-4.9) mg/dl Magnesium 2.0 (1.8-2.4) mg/dl Total Bilirubin 1.2 H (0.2-1) mg/dl AST 39 H (15-37) U/L ALT 31 (12-78) U/L Alkaline Phosphatase 72 (45-117) U/L Total Protein 4.6 L (6.4-8.2) gm/dl Albumin 1.9 L (3.4-5.0) gm/dl Globulin 2.7 (2.5-4.0) gm/dl Albumin/Globulin Ratio 0.7 L (0.9-2) 02/25/20 02/24/20 02/24/20 Range/Units 03:56 23:46 20:03 WBC (4.8-10.8) K/uL RBC (4.7-6.1) M/uL Hgb (14.0-18.0) g/dL Hct (42-52) % MCV (80-100) fL MCH (25-34) pg MCHC (32-36) g/dL RDW Std Deviation (36.4-46.3) fL RDW Coeff of Scott (11.5-14.5) % Plt Count (130-400) K/uL MPV (7.4-10.4) fL Immature Gran % (Auto) % Neut % (Auto) % Lymph % (Auto) % Randall % (Auto) % Eos % (Auto) % Baso % (Auto) % Reticulocyte % (Auto) (0.5-2.0) % Immature Gran # (Auto) (0.00-0.02) K/uL Neut # (Auto) (1.4-6.5) K/uL Lymph # (Auto) (1.2-3.4) K/uL Randall # (Auto) (0.11-0.59) K/uL Eos # (Auto) (0-0.5) K/uL Baso # (Auto) (0-0.2) K/uL Reticulocyte # (0.02-0.10) 10^6/uL Sodium (136-145) mmol/L Potassium (3.5-5.1) mmol/L Chloride (98-107) mmol/L Carbon Dioxide (21-32) mmol/L Anion Gap (3-11) BUN (7-18) mg/dl Creatinine (0.6-1.4) mg/dl Est Cr Clr Drug Dosing ml/min Est GFR ( Amer) Est GFR (Non-Af Amer) BUN/Creatinine Ratio (10-20) Glucose (70-99) mg/dl POC Glucose 120 H 111 H 124 H (70-99) mg/dl Calcium (8.5-10.1) mg/dl Phosphorus (2.5-4.9) mg/dl Magnesium (1.8-2.4) mg/dl Total Bilirubin (0.2-1) mg/dl AST (15-37) U/L ALT (12-78) U/L Alkaline Phosphatase (45-117) U/L Total Protein (6.4-8.2) gm/dl Albumin (3.4-5.0) gm/dl Globulin (2.5-4.0) gm/dl Albumin/Globulin Ratio (0.9-2) 02/24/20 02/24/20 Range/Units 15:58 12:54 WBC (4.8-10.8) K/uL RBC (4.7-6.1) M/uL Hgb (14.0-18.0) g/dL Hct (42-52) % MCV (80-100) fL MCH (25-34) pg MCHC (32-36) g/dL RDW Std Deviation (36.4-46.3) fL RDW Coeff of Scott (11.5-14.5) % Plt Count (130-400) K/uL MPV (7.4-10.4) fL Immature Gran % (Auto) % Neut % (Auto) % Lymph % (Auto) % Randall % (Auto) % Eos % (Auto) % Baso % (Auto) % Reticulocyte % (Auto) (0.5-2.0) % Immature Gran # (Auto) (0.00-0.02) K/uL Neut # (Auto) (1.4-6.5) K/uL Lymph # (Auto) (1.2-3.4) K/uL Randall # (Auto) (0.11-0.59) K/uL Eos # (Auto) (0-0.5) K/uL Baso # (Auto) (0-0.2) K/uL Reticulocyte # (0.02-0.10) 10^6/uL Sodium (136-145) mmol/L Potassium (3.5-5.1) mmol/L Chloride (98-107) mmol/L Carbon Dioxide (21-32) mmol/L Anion Gap (3-11) BUN (7-18) mg/dl Creatinine (0.6-1.4) mg/dl Est Cr Clr Drug Dosing ml/min Est GFR ( Amer) Est GFR (Non-Af Amer) BUN/Creatinine Ratio (10-20) Glucose (70-99) mg/dl POC Glucose 114 H 86 (70-99) mg/dl Calcium (8.5-10.1) mg/dl Phosphorus (2.5-4.9) mg/dl Magnesium (1.8-2.4) mg/dl Total Bilirubin (0.2-1) mg/dl AST (15-37) U/L ALT (12-78) U/L Alkaline Phosphatase (45-117) U/L Total Protein (6.4-8.2) gm/dl Albumin (3.4-5.0) gm/dl Globulin (2.5-4.0) gm/dl Albumin/Globulin Ratio (0.9-2) Coding Level of Care Code 88168 Subseq Hosp Care Lvl 3 Diagnoses S/P admission to ICU (intensive care unit) Severe malnutrition E43
--- NOTE | 2020-02-25 09:28 | Hospitalist Progress Note ---
Date of Service February 25, 2020 Assessment & Plan (1) Incarcerated ventral hernia: (2) SBO (small bowel obstruction): -Present on admission on 02/16/2020 with altered mental status, abdominal distention, with vomiting -admission CT abd/pelvis showed highly concerning for a high-grade partial or complete small bowel obstruction. This may be due to interval development of a herniated short segment of small bowel within the ventral hernia. -Operation Date 02/16/20 Incarcerated Ventral Hernia x 2, Small bowel Obstruction -there are no further plans for abdominal surgery as per general surgery service, patient was extubated on 02/23/2020 and so far has been transitioned aerosol mask and to nasal cannula oxygen. Patient did not pass speech swallow evaluations so OG tube was placed for feeds on 02/24/2020 and the IV protonics is transitioned to oral famotidine (3) Aspiration pneumonia: -patient has been managed in ICU for Acute respiratory distress syndrome (ARDS) / aspiration pneumonia -had remained intubated from admission and extubated on 02/23/2020 after undergoing course of IV steroids, IV antibiotics of Zosyn and diuretics as per IC physician -continues to be on IV Zosy (4) Cirrhosis: -history of Cirrhosis with ascites. S/P TIPS in 2019. Requires recurrent paracentesis in previous hospital presentations (5) Acute hepatic encephalopathy: -admission CT head showed no acute intracranial abnormality -admission ammonia level on admission 90 -MRI brain 02/20/2020: No evidence for an acute ischemic event. Age-related chronic small vessel change and atrophy. No evidence for abnormal postcontrast enhancement. -on Lactulose, IV thiamine . Zinc supplements -extubated on 02/23/2020, as of 02/24/2020 patient has good mentation, responds to questions in appropriate manner, sitting up in chair. with assistance he was able to get to commode as per nursing staff. Patient denies acute pain. denies other symptoms -02/25/2020: Patient seen and examined in the ICU. No acute events overnight. Patient on nasal cannula oxygen at 2 liters/min. Continues to have OG to nose. Patient appears is somewhat lethargic but able to say 1 to 2 words clearly to medical physician although he also had some mumbling speech. He does not appear to be in acute pain Hypernatremia -serum sodium 146 on 02/22/2020 and the 147. patient has been on diuretics. serum sodium 146 on 02/24/2020. serum sodium is 144 on 02/25/2020 (6) Acute kidney injury superimposed on CKD: -admission creatinine 1.6 -currently creatinine at baseline (7) NSTEMI (non-ST elevated myocardial infarction): -NSTEMI/Ischemic heart disease versus stress-induced cardiomyopathy noted on admission. Ejection fraction is moderately reduced at 35 to 40%. -cardiology has plans on repeat limited 2D transthoracic echocardiogram for reassessment of apical wall motion abnormality. -as of 02/24/2020 Patient appears euvolemic and cardiology recommends future plans of restart Aldactone as blood pressure improves. -as per cardiology service Patient is not a candidate for anticoagulation, antiplatelet, or statin therapy at this time. (8) Paroxysmal A-fib: -no acute telemetry events recently, heart rates appears controlled and stable (9) Acute upper GI bleed: -admission Hgb as 12.9 with coffee ground emesis in ER. -patient has been give IV protonix on this admission and hemoglobin has generally trended down to 9 and then 8. Hgb is 7.7 on 02/23/2020 -On 02/23/2020: Patient's family Isamar gave verbal consent over the phone fo blood transfusion as needed but followup CBC above 8 so far -02/24/2020 FOBT is negative Thrombocytopenia -history of cirrhosis -kathryn platelet levels of 101 K DVT prophylaxis: SCDs CODE STATUS DNR/DNI Family Daughter Isamar [phone]; [phone] Son Slick [phone] Daughter in Law Noelle [phone] Admission and Anticipated Discharge Date Admission Date: February 16, 2020 Subjective Patient seen and examined in the ICU. No acute events overnight. Patient on nasal cannula oxygen at 2 liters/min. Continues to have OG to nose. Patient appears is somewhat lethargic but able to say 1 to 2 words clearly to medical physician although he also had some mumbling speech. He does not appear to be in acute pain Review of Systems Review of Systems: Unobtainable due to cognitive status Physical Exam Constitutional: + frail appearing Eyes: PERRL, conjunctivae normal, anicteric sclerae ENMT: external ear and nose normal, oropharynx normal Neck: normal visual inspection Respiratory: normal respiratory effort Cardiovascular: Rate/Rhythm: regular rate Gastrointestinal (Abdomen): Percussion/Palpation: abdomen soft Musculoskeletal: Head/Neck/Chest: normocephalic Neurologic: PERRL, EOMI, accommodation nl, no face palsy, no dysarthria Psychiatric: Orientation: alert and cooperative Eye Contact: + poor eye contact Results & Data Results & Data ([facility]) Vital Signs (Past 12 Hours) Vital Signs Temp Pulse Resp BP Pulse Ox 02/25/20 06:00 70 24 104/58 L 90 02/25/20 05:00 61 22 122/67 95 02/25/20 04:00 36.9 C 66 22 116/63 92 02/25/20 03:00 64 20 97/57 L 100 02/25/20 02:00 62 18 100/52 L 100 02/25/20 01:00 65 20 99/51 L 98 02/25/20 00:00 37.3 C 61 21 98/55 L 100 02/24/20 23:00 66 23 98/61 L 94 02/24/20 22:00 65 20 91/45 L 94
[2020-02-25] MEDS ORDERED: POTASSIUM PHOS 3 MMOL/1 ML INFUSION IV STA (09:46)
[2020-02-25] MEDS ORDERED: POTASSIUM PHOSPHATE IV ONE (10:00)
[2020-02-25] MEDS ORDERED: SODIUM CHLORIDE 0.9% IV ONE (10:00)
[2020-02-25] MEDS: MEGESTROL ACETATE SUSP 400 MG/10 ML UDC PO SCH (10:06)
[2020-02-25] MEDS ORDERED: FUROSEMIDE 40 MG in SYRINGE 0 ML IV ONE (10:15)
[2020-02-25] MEDS: POTASSIUM CHLORIDE 20 MEQ/15 ML UDC NG SCH ×3 (10:17→20:24)
[2020-02-25] MEDS: POTASSIUM ACETATE 20 MEQ in 0.9 % SODIUM CHLORIDE 100 ML IV SCH ×2 (11:52→13:20)
--- NOTE | 2020-02-25 13:54 | Cardiology Progress Note ---
Date of Service February 25, 2020 Assessment & Plan (1) Paroxysmal A-fib: (2) NSTEMI (non-ST elevated myocardial infarction): (3) Septic shock: (4) Aspiration pneumonia: (5) ARDS (adult respiratory distress syndrome): (6) Upper GI bleed: (7) Anemia: (8) Incarcerated umbilical hernia: NSTEMI/Ischemic heart disease versus stress-induced cardiomyopathy noted on admission. Ejection fraction is moderately reduced at 35 to 40%. Patient received dose of IV Lasix with improvement of volume status. Restart Aldactone tomorrow 02/26/2020 if blood pressure remained stable. No recurrent atrial fibrillation overnight. Continue IV metoprolol as needed. Hemoglobin mildly improved today (9.0). Monitor. Patient is not a candidate for anticoagulation, antiplatelet, or statin therapy at this time. Repeat resting limited 2D transthoracic echo for reassessment of LV function. Subjective Patient seen and examined at the bedside. Oxygen saturations stable on 2 L nasal cannula. Able to follow commands and answer questions. Speech is garb led. No concerns reported by nursing staff. No evidence of recurrent atrial fibrillation. Review of Systems Review of Systems: All systems reviewed & are unremarkable except as noted in HPI & below Physical Exam Constitutional: + ill appearing; no acute distress Respiratory: Auscultation: no crackles, no rales, no rhonchi and no wheezes Cardiovascular: Rate/Rhythm: regular rate and regular rhythm Heart Sounds: normal S1 and normal S2; no murmur Gastrointestinal (Abdomen): Inspection/Auscultation: abdomen not distended Percussion/Palpation: abdomen soft; no guarding and abdomen not rigid Skin: no rashes, warm and dry Neurologic: moves all extremities; no focal motor deficits Speech / Cognition: + abnormal speech Psychiatric: Orientation: alert Results & Data Vital Signs (Past 12 Hours) Vital Signs Temp Pulse Resp BP Pulse Ox 02/25/20 13:15 71 21 105/60 92 02/25/20 12:15 37.0 C 66 20 91/49 L 92 02/25/20 12:00 62 21 96/62 L 94 02/25/20 11:15 68 16 89/57 L 95 02/25/20 10:15 75 23 97/53 L 92 02/25/20 09:39 60 19 94/52 L 02/25/20 08:39 71 24 107/60 93 02/25/20 08:00 36.6 C 69 21 92 02/25/20 07:39 71 18 94/47 L 94 02/25/20 06:39 72 15 105/48 L 91 02/25/20 06:00 70 24 104/58 L 90 02/25/20 05:00 61 22 122/67 95 02/25/20 04:00 36.9 C 66 22 116/63 92 02/25/20 03:00 64 20 97/57 L 100 02/25/20 02:00 62 18 100/52 L 100
--- NOTE | 2020-02-25 14:58 | Palliative Care Progress Note ---
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 In Ed, patient had coffee ground emesis, was lethargic and not answering questions. he was intubated. CT abd/pelvis showed high-grade partial or complete SBO due to herniated short segment of small bowel within the ventral hernia. OG tube placed for decompression. Ammonia elevated at 90, CT head showed nothing acute. Patient was also noted to have elevated troponin and some ST elevated on EKG, however, no cardiac catheterization performed as patient taken to the OR for emergent open repair of ventral hernia and small bowel release. Post-operatively, patient sent to ICU, intubated and on pressors. Labs were monitored closely, and CXR had some increased bilateral opacities. He was treated for CHF exacerbation with IV Lasix. Patient remained sedated on ventilator, moving all extremities but not following commands. Procalcitonin was trending upwards, troponin trending down. Bronchoscopy performed on 02/16 to evaluation for alveolar hemorrhage, none found. While patient seemed to stabilize from a cardiac standpoint with decrease in pressors, respiratory status worsened to development of ARDS per cotton puller. Patient on high dose Decadron with close monitoring for GI bleed. Patient was extubated on 02/21-is stable on O2 at 2 L. Still not following commands, able to say a few words clearly -Current plan is to continue current care. Patient is now DNR. Patient currently receiving NG feeds, continue SLPWill reassess on Friday -Prognosis is guarded, patient remains critically ill (2) ARDS (adult respiratory distress syndrome): (3) Chronic liver disease and cirrhosis: Subjective Following along with patient's progress, collaborated with patient's nurse. Patient more alert, was able to ZOOM with his family earlier this a.m.-nursing reports he responded to hearing their voices. Patient lethargic-required tactile stim to awaken. Unable to follow commands. Patient was able to state that he had to urinate, or crying to person assist for transfer to bedside commode. Patient continues on NG feeds-DIRECTOR OF PUBLIC RELATIONS working with patient to improve swallowing. Following along to see how patient does over the weekend-we will have discussions with family early next week depending on whether or not patient regains his ability to take p.o. Review of Systems Review of Systems: Unobtainable due to cognitive status Physical Exam Physical Exam: PE: Patient arousable, appears comfortable, lethargic HEENT: EOMI, KASHIA. NG tube in place Respirations: Good air movement bilaterally,unlabored, on O2 at 2 L CV: Regular rate and rhythm Abdomen: Soft, nontender Extremities: Moving all extremities Neuro: Significant cognitive deficits, delirium improving Results & Data Vital Signs (Past 12 Hours) Vital Signs Temp Pulse Resp BP Pulse Ox 02/25/20 13:15 71 21 105/60 92 02/25/20 12:15 98.6 F 66 20 91/49 L 92 02/25/20 12:00 62 21 96/62 L 94 02/25/20 11:15 68 16 89/57 L 95 02/25/20 10:15 75 23 97/53 L 92 02/25/20 09:39 60 19 94/52 L 02/25/20 08:39 71 24 107/60 93 02/25/20 08:00 97.9 F 69 21 92 02/25/20 07:39 71 18 94/47 L 94 02/25/20 06:39 72 15 105/48 L 91 02/25/20 06:00 70 24 104/58 L 90 02/25/20 05:00 61 22 122/67 95 02/25/20 04:00 98.4 F 66 22 116/63 92 02/25/20 03:00 64 20 97/57 L 100 PG Care Time/CCT Total # of Minutes Spent Total Time Spent with Patient: Total time spent 25 minutes with greater than 50% of the time assessing patient's current status and collaborating with ICU staff Coding Level of Care Code 08349 Subseq Hosp Care Lvl 2 Diagnoses Goals of care, counseling/discussion Z71.89 ARDS (adult respiratory distress syndrome) J80 Chronic liver disease and cirrhosis K74.60; K76.9 Time Spent (min) 25
[2020-02-25] MEDS ORDERED: PERFLUTREN LIPID MICROSPHERE (DEFINITY) IV ONE (15:29)
[2020-02-25] MEDS ORDERED: CHLOROTHIAZIDE SODIUM 500 MG in DEXTROSE 5% 50 ML IV ONE (17:00)
[2020-02-25] MEDS: IMPACT LIQD 1.0 CAL 1,000 ML BAG OG SCH (20:24)
[2020-02-26] MEDS: PIPERACILLIN/TAZOBACTAM 4.5 GM in DEXTROSE 5% 100 ML IV SCH ×2 (02:51→08:53)
[2020-02-26] MEDS: INSULIN ASPART 100 UNITS/ML 3 ML PEN SC SCH ×5 (03:48→19:27)
[2020-02-26 05:10] LABS: Basophils # (auto) 0.02 K/uL (0-0.2); Basophils % (auto) 0.2 %; Eosinophils # (auto) 0.49 K/uL (0-0.5); Eosinophils % (auto) 4.1 %; Hematocrit (blood only) 27.2 % (42-52); Immature Granulocytes # (auto) 0.25 K/uL (0.00-0.02); Immature Granulocytes % (auto) 2.1 %; Lymphocytes # (auto) 1.01 K/uL (1.2-3.4); Lymphocytes % (auto) 8.4 %; Mean Corpuscular Hemoglobin 31.9 pg (25-34); Mean Corpuscular Hgb Conc 33.1 g/dL (32-36); Mean Corpuscular Volume 96.5 fL (80-100); Mean Platelet Volume 11.1 fL (7.4-10.4); Monocytes # (auto) 0.56 K/uL (0.11-0.59); Monocytes % (auto) 4.7 %; Neutrophils # (auto) 9.71 K/uL (1.4-6.5); Neutrophils % (auto) 80.5 %; Platelet Count 108 K/uL (130-400); RDW Coefficient of Variation 16.3 % (11.5-14.5); RDW Standard Deviation 53.9 fL (36.4-46.3); Red Blood Count 2.82 M/uL (4.7-6.1); White Blood Count 12.04 K/uL (4.8-10.8)
[2020-02-26 05:42] LABS: BUN Creatinine Ratio 23.8 (10-20); Calcium 8.2 mg/dl (8.5-10.1); Creatinine Clr Calc Pharmacy 53.7 ml/min; Est GFR (African American) 81.6; Est GFR (Non-African American) 70.4; Phosphorus 2.9 mg/dl (2.5-4.9); Potassium 4.2 mmol/L (3.5-5.1)
[2020-02-26] MEDS: HEPARIN SOD 5,000 UNIT/0.5 ML VIAL SQ SCH (05:57)
[2020-02-26] MEDS: SODIUM CHLORIDE 0.9% IV SCH (08:43)
[2020-02-26] MEDS: THIAMINE HCL IV SCH (08:43)
[2020-02-26] MEDS: LACTULOSE SYRUP 20 GM/30 ML UDC PO SCH ×2 (08:52→20:20)
[2020-02-26] MEDS: MEGESTROL ACETATE SUSP 400 MG/10 ML UDC PO SCH (08:53)
[2020-02-26] MEDS: ZINC SULFATE 220 MG CAPSULE PO SCH (08:53)
[2020-02-26] MEDS: CIPROFLOXACIN 500 MG TAB PO SCH (08:53)
[2020-02-26] MEDS: MULTIVITAMIN TAB PO SCH (08:53)
[2020-02-26] MEDS: ASCORBIC ACID 500 MG TAB PO SCH (08:53)
[2020-02-26] MEDS: RIFAXIMIN 550 MG TABLET PO SCH ×2 (08:53→20:20)
[2020-02-26] MEDS: FAMOTIDINE 40 MG TABLET PO SCH (08:53)
--- NOTE | 2020-02-26 08:58 | Critical Care Progress Note ---
Date of Service February 26, 2020 Assessment & Plan (1) S/P admission to ICU (intensive care unit): PLAN: Neuro: Acute encephalopathy: Multifactorial: Improved -Continue lactulose -Goal 1-2 bowel movements daily would scale back if he starts having diarrhea or frequent bowel movements -Adding rifaximin, okay per gastroenterology Resp: Aspiration of gastric contents into airway: Resolved Aspiration pneumonitis: Resolved Acute respiratory distress syndrome: Resolved Acute hypoxic respiratory failure: Resolved Mucoid impaction in right and left lower bronchi: Resolved -Status post bronchoscopy 02/21 Moderate tracheomalacia: Acquired: left lung CV: History paroxysmal atrial fibrillation: Anticoagulation contraindicated at this time -I believe at this junction his stroke risk is minimal compared to his risk for bleeding and or falls given his decompensation Non-ST elevated myocardial infarction: Improved: Troponins were downtrending Cardiomyopathy: Improved -Attempt to add metoprolol at some point -Repeat echo encouraging Hypotension: Resolved -We are not escalating care the patient, would not restart vasoactive's Fluids/Renal: Acute kidney injury: Resolved -Diuril x1 and Lasix x1 -Aggressive potassium repletion Discontinue Gustafson, condom cath as needed for hygiene ID: Completed 10-day course of Zosyn for presumptive aspiration Lidia albicans isolated from bronc: Consider this to be colonization GI/Nutrition: Severe Malnutrition -Greater than 5 pound weight loss in 2 weeks -Added Megace Tolerating tube feeding -Speech and swallow follow-up Multivitamins for optimal wound healing Heme: Postop anemia: Stable -Reticulocyte count shows elevation which would be appropriate response Thrombocytopenia: Trend every 3 days, unlikely to represents HIT -Consider anemia of chronic disease as well as underlying bone marrow suppression from chronic disease and current critical illness DVT prophylaxis: Convert to Lovenox for ease of administration Endocrine: ICU hyperglycemia protocol -Continued improvement Vascular access: Right IJ: Discontinue 02/24 Code Status: DNR in event of cardiac arrest, DO NOT INTUBATE in event of respiratory insufficiency, no escalation of care for high acuity/high risk procedures Disposition: Starting to plan for subacute rehab versus LTAC versus [facility] -PT OT recommend [facility] inpatient services -We will work with case management to elucidate best facility and course safe versus palliative feed versus surgical feeding tube (3) Septic shock: (4) Aspiration pneumonia: (5) Acute kidney injury superimposed on CKD: (6) Elevated INR: (7) S/P TIPS (transjugular intrahepatic portosystemic shunt): (8) Hepatic insufficiency: (9) Chronic liver disease and cirrhosis: (10) Tracheomalacia, acquired: (11) Anemia: (12) Mucoid impaction of bronchi: (13) Goals of care, counseling/discussion: (2) Severe malnutrition: Admission and Anticipated Discharge Date Admission Date: February 16, 2020 Subjective No overnight events, no complaints of pain, moved his bowels. Review of Systems Review of Systems: All systems reviewed & are unremarkable except as noted in HPI & below Physical Exam Physical Exam: General: Alert. nontoxic. Frail in general appearance Skin: Warm, dry, Head: Atraumatic Ears, nose, mouth and throat: airway patent Cardiovascular: Normal peripheral perfusion Respiratory: no respiratory distress Gastrointestinal: Non distended Musculoskeletal: No gross deformity Results & Data Results & Data ([facility]) Vital Signs (Past 12 Hours) Vital Signs Temp Pulse Resp BP Pulse Ox 02/26/20 04:00 60 18 100/51 L 95 02/26/20 03:00 67 20 96/49 L 95 02/26/20 02:00 68 20 90/48 L 94 02/26/20 01:00 82 24 83/40 L 93 02/26/20 00:00 36.2 C L 63 17 97/52 L 94 02/25/20 23:00 62 20 97/53 L 96 02/25/20 22:05 67 22 96/53 L 94 02/25/20 21:00 66 18 87 L Laboratory Results 02/26/20 02/26/20 02/26/20 Range/Units 08:42 04:24 04:24 WBC 12.04 H (4.8-10.8) K/uL RBC 2.82 L (4.7-6.1) M/uL Hgb 9.0 L (14.0-18.0) g/dL Hct 27.2 L (42-52) % MCV 96.5 (80-100) fL MCH 31.9 (25-34) pg MCHC 33.1 (32-36) g/dL RDW Std Deviation 53.9 H (36.4-46.3) fL RDW Coeff of Scott 16.3 H (11.5-14.5) % Plt Count 108 L (130-400) K/uL MPV 11.1 H (7.4-10.4) fL Immature Gran % (Auto) 2.1 % Neut % (Auto) 80.5 % Lymph % (Auto) 8.4 % [place] % (Auto) 4.7 % Eos % (Auto) 4.1 % Baso % (Auto) 0.2 % Immature Gran # (Auto) 0.25 H (0.00-0.02) K/uL Neut # (Auto) 9.71 H (1.4-6.5) K/uL Lymph # (Auto) 1.01 L (1.2-3.4) K/uL [place] # (Auto) 0.56 (0.11-0.59) K/uL Eos # (Auto) 0.49 (0-0.5) K/uL Baso # (Auto) 0.02 (0-0.2) K/uL Sodium 143 (136-145) mmol/L Potassium 4.2 D (3.5-5.1) mmol/L Chloride 115 H (98-107) mmol/L Carbon Dioxide 23 (21-32) mmol/L Anion Gap 5.0 (3-11) BUN 24 H (7-18) mg/dl Creatinine 1.01 (0.6-1.4) mg/dl Est Cr Clr Drug Dosing 53.7 ml/min Est GFR ( Amer) 81.6 Est GFR (Non-Af Amer) 70.4 BUN/Creatinine Ratio 23.8 H (10-20) Glucose 150 H (70-99) mg/dl POC Glucose 105 H (70-99) mg/dl Calcium 8.2 L (8.5-10.1) mg/dl Phosphorus 2.9 (2.5-4.9) mg/dl Magnesium 2.0 (1.8-2.4) mg/dl 02/26/20 02/25/20 02/25/20 Range/Units 03:44 23:08 20:06 WBC (4.8-10.8) K/uL RBC (4.7-6.1) M/uL Hgb (14.0-18.0) g/dL Hct (42-52) % MCV (80-100) fL MCH (25-34) pg MCHC (32-36) g/dL RDW Std Deviation (36.4-46.3) fL RDW Coeff of Scott (11.5-14.5) % Plt Count (130-400) K/uL MPV (7.4-10.4) fL Immature Gran % (Auto) % Neut % (Auto) % Lymph % (Auto) % [place] % (Auto) % Eos % (Auto) % Baso % (Auto) % Immature Gran # (Auto) (0.00-0.02) K/uL Neut # (Auto) (1.4-6.5) K/uL Lymph # (Auto) (1.2-3.4) K/uL [place] # (Auto) (0.11-0.59) K/uL Eos # (Auto) (0-0.5) K/uL Baso # (Auto) (0-0.2) K/uL Sodium (136-145) mmol/L Potassium (3.5-5.1) mmol/L Chloride (98-107) mmol/L Carbon Dioxide (21-32) mmol/L Anion Gap (3-11) BUN (7-18) mg/dl Creatinine (0.6-1.4) mg/dl Est Cr Clr Drug Dosing ml/min Est GFR ( Amer) Est GFR (Non-Af Amer) BUN/Creatinine Ratio (10-20) Glucose (70-99) mg/dl POC Glucose 132 H 143 H 130 H (70-99) mg/dl Calcium (8.5-10.1) mg/dl Phosphorus (2.5-4.9) mg/dl Magnesium (1.8-2.4) mg/dl 02/25/20 02/25/20 02/25/20 Range/Units 15:11 11:54 09:11 WBC (4.8-10.8) K/uL RBC (4.7-6.1) M/uL Hgb (14.0-18.0) g/dL Hct (42-52) % MCV (80-100) fL MCH (25-34) pg MCHC (32-36) g/dL RDW Std Deviation (36.4-46.3) fL RDW Coeff of Scott (11.5-14.5) % Plt Count (130-400) K/uL MPV (7.4-10.4) fL Immature Gran % (Auto) % Neut % (Auto) % Lymph % (Auto) % [place] % (Auto) % Eos % (Auto) % Baso % (Auto) % Immature Gran # (Auto) (0.00-0.02) K/uL Neut # (Auto) (1.4-6.5) K/uL Lymph # (Auto) (1.2-3.4) K/uL [place] # (Auto) (0.11-0.59) K/uL Eos # (Auto) (0-0.5) K/uL Baso # (Auto) (0-0.2) K/uL Sodium (136-145) mmol/L Potassium (3.5-5.1) mmol/L Chloride (98-107) mmol/L Carbon Dioxide (21-32) mmol/L Anion Gap (3-11) BUN (7-18) mg/dl Creatinine (0.6-1.4) mg/dl Est Cr Clr Drug Dosing ml/min Est GFR ( Amer) Est GFR (Non-Af Amer) BUN/Creatinine Ratio (10-20) Glucose (70-99) mg/dl POC Glucose 131 H 131 H 118 H (70-99) mg/dl Calcium (8.5-10.1) mg/dl Phosphorus (2.5-4.9) mg/dl Magnesium (1.8-2.4) mg/dl Coding Level of Care Code 12488 Subseq Hosp Care Lvl 2 Diagnoses S/P admission to ICU (intensive care unit) Severe malnutrition E43
[2020-02-26] MEDS: ENOXAPARIN INJ 40 MG/0.4 ML SYR SQ SCH (12:09)
[2020-02-26] MEDS: IMPACT LIQD 1.0 CAL 1,000 ML BAG OG SCH (12:16)
--- NOTE | 2020-02-26 12:36 | Hospitalist Progress Note ---
Date of Service February 26, 2020 Assessment & Plan (1) Incarcerated ventral hernia: (2) SBO (small bowel obstruction): -Present on admission on 02/16/2020 with altered mental status, abdominal distention, with vomiting -admission CT abd/pelvis showed highly concerning for a high-grade partial or complete small bowel obstruction. This may be due to interval development of a herniated short segment of small bowel within the ventral hernia. -Operation Date 02/16/20 Incarcerated Ventral Hernia x 2, Small bowel Obstruction -there are no further plans for abdominal surgery as per general surgery service, patient was extubated on 02/23/2020 and so far has been transitioned aerosol mask and to nasal cannula oxygen. Patient did not pass speech swallow evaluations so OG tube was placed for feeds on 02/24/2020 and the IV protonics is transitioned to oral famotidine -it would appear that speech and swallow services may try repeat assessment on Friday02/28/2020. Patient remains in ICU at this time (3) Aspiration pneumonia: -patient has been managed in ICU for Acute respiratory distress syndrome (ARDS) / aspiration pneumonia -had remained intubated from admission and extubated on 02/23/2020 after undergoing course of IV steroids, IV antibiotics of Zosyn and diuretics as per ICU physician -continues to be on IV Zosyn as of 02/26/2020 for completion of Zosyn course. ICU physician started patient on Ciprofloxacin on 02/26/2020 (4) Cirrhosis: -history of Cirrhosis with ascites. S/P TIPS in 2019. Requires recurrent paracentesis in previous hospital presentations (5) Acute hepatic encephalopathy: -admission CT head showed no acute intracranial abnormality -admission ammonia level on admission 90 -MRI brain 02/20/2020: No evidence for an acute ischemic event. Age-related chronic small vessel change and atrophy. No evidence for abnormal postcontrast enhancement. -on Lactulose, IV thiamine . Zinc supplements -extubated on 02/23/2020, as of 02/24/2020 patient has good mentation, responds to questions in appropriate manner, sitting up in chair. with assistance he was able to get to commode as per nursing staff. Patient denies acute pain. denies other symptoms -02/25/2020: Patient seen and examined in the ICU. No acute events overnight. Patient on nasal cannula oxygen at 2 liters/min. Continues to have OG to nose. Patient appears is somewhat lethargic but able to say 1 to 2 words clearly to medical physician although he also had some mumbling speech. He does not appear to be in acute pain Hypernatremia -serum sodium 146 on 02/22/2020 and the 147. patient has been on diuretics. serum sodium 146 on 02/24/2020. serum sodium is 144 on 02/25/2020 (6) Acute kidney injury superimposed on CKD: -admission creatinine 1.6 -currently creatinine at baseline (7) NSTEMI (non-ST elevated myocardial infarction): -NSTEMI/Ischemic heart disease versus stress-induced cardiomyopathy noted on admission. Ejection fraction is moderately reduced at 35 to 40%. -repeat echocardiogram shows Ejection Fraction of 55 to 60%with hypokinesis in apical areas of the heart -as per cardiology service Patient is not a candidate for anticoagulation, antiplatelet, or statin therapy at this time. (8) Paroxysmal A-fib: -no acute telemetry events recently, heart rates appears controlled and stable (9) Acute upper GI bleed: -admission Hgb as 12.9 with coffee ground emesis in ER. -patient has been give IV protonix on this admission and hemoglobin has generally trended down to 9 and then 8. Hgb is 7.7 on 02/23/2020 -On 02/23/2020: Patient's family Isamar gave verbal consent over the phone fo blood transfusion as needed but followup CBC above 8 so far -02/24/2020 FOBT is negative Thrombocytopenia -history of cirrhosis -kathryn platelet levels of 108 K DVT prophylaxis: SCDs CODE STATUS DNR/DNI Family Daughter Isamar [phone]; [phone] Son Slick [phone] Daughter in Law Noelle [phone] Admission and Anticipated Discharge Date Admission Date: February 16, 2020 Subjective Hospitalist seen and examined patient in ICU after nurses has brought to bed from chair. He appears tired at time of exam and trying to sleep. He was more active when on the chair as per nurse. Review of systems could not be done because of patient's cognition but nurse reports that patient generally stable. Still on OG tube to nose for feeds Review of Systems Review of Systems: Unobtainable due to cognitive status Physical Exam Constitutional: + frail appearing ENMT: external ear and nose normal, oropharynx normal (OG tube in nose for feeding) Neck: normal visual inspection Respiratory: normal respiratory effort Cardiovascular: Rate/Rhythm: regular rate Gastrointestinal (Abdomen): Percussion/Palpation: abdomen soft Musculoskeletal: Head/Neck/Chest: normocephalic Neurologic: PERRL, EOMI, accommodation nl, no face palsy, no dysarthria Psychiatric: Orientation: alert and cooperative Eye Contact: + poor eye contact Results & Data Results & Data ([facility]) Vital Signs (Past 12 Hours) Vital Signs Temp Pulse Resp BP Pulse Ox 02/26/20 12:00 36.6 C 15 97 02/26/20 11:57 60 15 87/39 L 95 02/26/20 10:57 63 16 81/44 L 02/26/20 10:00 69 17 96/54 L 98 02/26/20 08:58 62 16 87/53 L 95 02/26/20 08:00 63 15 02/26/20 07:57 36.5 C 60 15 88/43 L 02/26/20 07:33 71 16 96/55 L 02/26/20 07:00 75 24 92 02/26/20 04:00 60 18 100/51 L 95 02/26/20 03:00 67 20 96/49 L 95 02/26/20 02:00 68 20 90/48 L 94 02/26/20 01:00 82 24 83/40 L 93
[2020-02-27] MEDS: INSULIN ASPART 100 UNITS/ML 3 ML PEN SC SCH ×5 (00:17→18:31)
[2020-02-27 04:21] LABS: Basophils # (auto) 0.01 K/uL (0-0.2); Basophils % (auto) 0.1 %; Eosinophils # (auto) 0.55 K/uL (0-0.5); Eosinophils % (auto) 5.4 %; Hematocrit (blood only) 27.2 % (42-52); Immature Granulocytes # (auto) 0.24 K/uL (0.00-0.02); Immature Granulocytes % (auto) 2.3 %; Lymphocytes % (auto) 9.8 %; Mean Corpuscular Hemoglobin 32.3 pg (25-34); Mean Corpuscular Hgb Conc 33.1 g/dL (32-36); Mean Corpuscular Volume 97.5 fL (80-100); Mean Platelet Volume 10.9 fL (7.4-10.4); Monocytes # (auto) 0.62 K/uL (0.11-0.59); Monocytes % (auto) 6.1 %; Neutrophils # (auto) 7.81 K/uL (1.4-6.5); Neutrophils % (auto) 76.3 %; Platelet Count 106 K/uL (130-400); RDW Coefficient of Variation 16.8 % (11.5-14.5); RDW Standard Deviation 55.4 fL (36.4-46.3); Red Blood Count 2.79 M/uL (4.7-6.1); White Blood Count 10.23 K/uL (4.8-10.8)
[2020-02-27] MEDS: IMPACT LIQD 1.0 CAL 1,000 ML BAG OG SCH (04:22)
[2020-02-27 04:55] LABS: BUN Creatinine Ratio 27.7 (10-20); Creatinine Clr Calc Pharmacy 60.3 ml/min; Est GFR (African American) 93.8; Est GFR (Non-African American) 80.9; Phosphorus 2.7 mg/dl (2.5-4.9)
[2020-02-27 05:42] LABS: Potassium 4.2 mmol/L (3.5-5.1)
[2020-02-27] MEDS: SODIUM CHLORIDE 0.9% IV SCH (07:11)
[2020-02-27] MEDS: THIAMINE HCL IV SCH (07:11)
[2020-02-27] MEDS: ZINC SULFATE 220 MG CAPSULE PO SCH (07:12)
[2020-02-27] MEDS: MEGESTROL ACETATE SUSP 400 MG/10 ML UDC PO SCH (07:12)
[2020-02-27] MEDS: LACTULOSE SYRUP 20 GM/30 ML UDC PO SCH ×2 (07:12→20:08)
[2020-02-27] MEDS: FAMOTIDINE 40 MG TABLET PO SCH (07:12)
[2020-02-27] MEDS: ASCORBIC ACID 500 MG TAB PO SCH (07:13)
[2020-02-27] MEDS: RIFAXIMIN 550 MG TABLET PO SCH ×2 (07:13→20:08)
[2020-02-27] MEDS: ENOXAPARIN INJ 40 MG/0.4 ML SYR SQ SCH (07:13)
[2020-02-27] MEDS: CIPROFLOXACIN 500 MG TAB PO SCH (07:13)
[2020-02-27] MEDS: MULTIVITAMIN TAB PO SCH (07:13)
--- NOTE | 2020-02-27 08:36 | Critical Care Progress Note ---
Date of Service February 27, 2020 Assessment & Plan (1) S/P admission to ICU (intensive care unit): PLAN: Neuro: Acute encephalopathy: Multifactorial: Improved -Continue lactulose -Goal 1-2 bowel movements daily -rifaximin: okay per gastroenterology Resp: Aspiration of gastric contents into airway: Resolved Aspiration pneumonitis: Resolved Acute respiratory distress syndrome: Resolved Acute hypoxic respiratory failure: Resolved Mucoid impaction in right and left lower bronchi: Resolved -Status post bronchoscopy 02/21 Moderate tracheomalacia: Acquired: left lung CV: History paroxysmal atrial fibrillation: Anticoagulation contraindicated at this time -I believe at this junction his stroke risk is minimal compared to his risk for bleeding and or falls given his decompensation Non-ST elevated myocardial infarction: Improved Cardiomyopathy: Improved -Attempt to add metoprolol at some point -Repeat echo encouraging Hypotension: Resolved -We are not escalating care the patient, would not restart vasoactive's Fluids/Renal: Acute kidney injury: Resolved Discontinue Gustafson, condom cath as needed for hygiene ID: Completed 10-day course of Zosyn for presumptive aspiration Lidia albicans isolated from bronc: Consider this to be colonization GI/Nutrition: Severe Malnutrition -Greater than 5 pound weight loss in 2 weeks -Added Megace Tolerating tube feeding -Speech and swallow follow-up Multivitamins for optimal wound healing Heme: Postop anemia: Stable -Reticulocyte count shows elevation which would be appropriate response Thrombocytopenia: Trend every 3 days, unlikely to represents HIT -Consider anemia of chronic disease as well as underlying bone marrow suppression from chronic disease and current critical illness DVT prophylaxis: Convert to Lovenox for ease of administration Endocrine: ICU hyperglycemia protocol -Continued improvement Vascular access: Right IJ: Discontinue 02/24 Code Status: DNR in event of cardiac arrest, DO NOT INTUBATE in event of respiratory insufficiency, no escalation of care for high acuity/high risk procedures Disposition: Starting to plan for subacute rehab versus LTAC versus detention -PT OT recommend detention inpatient services -We will work with case management to elucidate best facility and course safe versus palliative feed versus surgical feeding tube Dispo: Stable for downgrade to med/surg. DNR/DNI, no escalation of care. 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 Review of Systems Review of Systems: No chest pain, no shortness of breath, no abdominal pain Physical Exam Physical Exam: General: Alert. nontoxic. Frail in general appearance Skin: Warm, dry, Head: Atraumatic Ears, nose, mouth and throat: airway patent Cardiovascular: Normal peripheral perfusion Respiratory: no respiratory distress Gastrointestinal: Non distended Musculoskeletal: No gross deformity Results & Data Results & Data ([facility]) Vital Signs (Past 12 Hours) Vital Signs Temp Pulse Resp BP Pulse Ox 02/27/20 07:58 36.8 C 73 22 87/47 L 97 02/27/20 06:57 62 17 100/52 L 95 02/27/20 06:00 67 18 92/51 L 94 02/27/20 05:00 73 21 97/48 L 02/27/20 04:00 62 18 100/48 L 96 02/27/20 03:00 64 15 87/44 L 94 02/27/20 02:00 55 L 13 90/49 L 92 02/27/20 00:00 36.8 C 69 16 94/48 L 94 02/26/20 23:00 63 17 100/54 L 95 02/26/20 22:00 77 20 97/46 L 96 02/26/20 21:00 72 17 89/52 L 95 Coding Level of Care Code 04602 Subseq Hosp Care Lvl 1 Diagnoses S/P admission to ICU (intensive care unit) Severe malnutrition E43
--- NOTE | 2020-02-27 10:31 | Hospitalist Progress Note ---
Date of Service February 27, 2020 Assessment & Plan (1) Incarcerated ventral hernia: (2) SBO (small bowel obstruction): -Present on admission on 02/16/2020 with altered mental status, abdominal distention, with vomiting -admission CT abd/pelvis showed highly concerning for a high-grade partial or complete small bowel obstruction. This may be due to interval development of a herniated short segment of small bowel within the ventral hernia. -Operation Date 02/16/20 Incarcerated Ventral Hernia x 2, Small bowel Obstruction -there are no further plans for abdominal surgery as per general surgery service, patient was extubated on 02/23/2020 and so far has been transitioned aerosol mask and to nasal cannula oxygen. Patient did not pass speech swallow evaluations so OG tube was placed for feeds on 02/24/2020 and the IV protonics is transitioned to oral famotidine -it would appear that speech and swallow services may try repeat assessment on Friday02/28/2020 and will continue OG tube and enteral feeds for now -Patient may be transferred out from ICU level of care on 02/27/2020 (3) Aspiration pneumonia: -patient has been managed in ICU for Acute respiratory distress syndrome (ARDS) / aspiration pneumonia -had remained intubated from admission and extubated on 02/23/2020 after undergoing course of IV steroids, IV antibiotics of Zosyn and diuretics as per ICU physician -continues to be on IV Zosyn as of 02/26/2020 for completion of Zosyn course. (4) Cirrhosis: -history of Cirrhosis with ascites. S/P TIPS in 2019. Requires recurrent paracentesis in previous hospital presentations (5) Acute hepatic encephalopathy: -admission CT head showed no acute intracranial abnormality -admission ammonia level on admission 90 -MRI brain 02/20/2020: No evidence for an acute ischemic event. Age-related chronic small vessel change and atrophy. No evidence for abnormal postcontrast enhancement. -on Lactulose, IV thiamine . Zinc supplements -extubated on 02/23/2020, as of 02/24/2020 patient has good mentation, responds to questions in appropriate manner, sitting up in chair. with assistance he was able to get to commode as per nursing staff. Patient denies acute pain. denies other symptoms -02/25/2020: Patient seen and examined in the ICU. No acute events overnight. Patient on nasal cannula oxygen at 2 liters/min. Continues to have OG to nose. Patient appears is somewhat lethargic but able to say 1 to 2 words clearly to medical physician although he also had some mumbling speech. He does not appear to be in acute pain -02/26/2020: ICU physician started patient on Ciprofloxacin 500 mg daily on 02/26/2020 which is primarily part of patient's previous home medication for secondary prophylaxis after episode of spontaneous bacterial peritonitis in the past. continue ciprofloxacin daily. continue rifaximin and lactulose Hypernatremia -serum sodium 146 on 02/22/2020 and the 147. patient has been on diuretics. serum sodium 146 on 02/24/2020. serum sodium is 144 on 02/25/2020 (6) Acute kidney injury superimposed on CKD: -admission creatinine 1.6 -currently creatinine at baseline (7) NSTEMI (non-ST elevated myocardial infarction): -NSTEMI/Ischemic heart disease versus stress-induced cardiomyopathy noted on admission. Ejection fraction is moderately reduced at 35 to 40%. -repeat echocardiogram shows Ejection Fraction of 55 to 60%with hypokinesis in apical areas of the heart -as per cardiology service Patient is not a candidate for anticoagulation, antiplatelet, or statin therapy at this time. (8) Paroxysmal A-fib: -no acute telemetry events recently, heart rates appears controlled and stable (9) Acute upper GI bleed: -admission Hgb as 12.9 with coffee ground emesis in ER. -patient has been give IV protonix on this admission and hemoglobin has generally trended down to 9 and then 8. Hgb is 7.7 on 02/23/2020 -On 02/23/2020: Patient's family Isamar gave verbal consent over the phone fo blood transfusion as needed but followup CBC above 8 so far -02/24/2020 FOBT is negative Thrombocytopenia -history of cirrhosis -kathryn platelet levels of around 100 K DVT prophylaxis: SCDs CODE STATUS DNR/DNI Family Daughter Isamar [phone]; [phone] Son Slick [phone] Daughter in Law Noelle [phone] Admission and Anticipated Discharge Date Admission Date: February 16, 2020 Subjective Patient seen and examined while sitting in the chair. He remains on OG tube with feeds. He is cooperative. His speech is loud and clear. He responds appropriately to questions in brief responses.. He does not report any acute symptoms Review of Systems Review of Systems: All systems reviewed & are unremarkable except as noted in Subjective Physical Exam Constitutional: + frail appearing Eyes: PERRL, conjunctivae normal, anicteric sclerae ENMT: external ear and nose normal, oropharynx normal (OG tube in nose for feeding) Neck: normal visual inspection Respiratory: normal respiratory effort Cardiovascular: Rate/Rhythm: regular rate Gastrointestinal (Abdomen): Percussion/Palpation: abdomen soft Musculoskeletal: Head/Neck/Chest: normocephalic Neurologic: PERRL, EOMI, accommodation nl, no face palsy, no dysarthria Psychiatric: Orientation: alert and cooperative Results & Data Results & Data ([facility]) Vital Signs (Past 12 Hours) Vital Signs Temp Pulse Resp BP Pulse Ox 02/27/20 07:58 36.8 C 73 22 87/47 L 97 02/27/20 06:57 62 17 100/52 L 95 02/27/20 06:00 67 18 92/51 L 94 02/27/20 05:00 73 21 97/48 L 02/27/20 04:00 62 18 100/48 L 96 02/27/20 03:00 64 15 87/44 L 94 02/27/20 02:00 55 L 13 90/49 L 92 02/27/20 00:00 36.8 C 69 16 94/48 L 94 02/26/20 23:00 63 17 100/54 L 95
[2020-02-28] MEDS: INSULIN ASPART 100 UNITS/ML 3 ML PEN SC SCH ×4 (00:10→18:37)
--- NOTE | 2020-02-28 10:01 | Hospitalist Progress Note ---
Date of Service February 28, 2020 Assessment & Plan (1) Incarcerated ventral hernia: (2) SBO (small bowel obstruction): -Present on admission on 02/16/2020 with altered mental status, abdominal distention, with vomiting -admission CT abd/pelvis showed highly concerning for a high-grade partial or complete small bowel obstruction. This may be due to interval development of a herniated short segment of small bowel within the ventral hernia. -Operation Date 02/16/20 Incarcerated Ventral Hernia x 2, Small bowel Obstruction -there are no further plans for abdominal surgery as per general surgery service, patient was extubated on 02/23/2020 and so far has been transitioned aerosol mask and to nasal cannula oxygen. Patient did not pass speech swallow evaluations so OG tube was placed for feeds on 02/24/2020 and the IV protonics is transitioned to oral famotidine -Patient transferred out from ICU level of care on 02/27/2020. Patient had NG tube feedings. He pull out NG tube after going to [facility] on 02/27/2020. Patient seen in the AM of 02/28/2020 and breathing comfortably on room air. No NG tube at this time. He is awaiting evaluation by speech and swallow services and they have ordered Videofluoroscopic Swallowing Study (VFSS) (3) Aspiration pneumonia: -patient has been managed in ICU for Acute respiratory distress syndrome (ARDS) / aspiration pneumonia -had remained intubated from admission and extubated on 02/23/2020 after undergoing course of IV steroids, IV antibiotics of Zosyn and diuretics as per ICU physician -continues to be on IV Zosyn as of 02/26/2020 for completion of Zosyn course. (4) Cirrhosis: -history of Cirrhosis with ascites. S/P TIPS in 2019. Requires recurrent paracentesis in previous hospital presentations (5) Acute hepatic encephalopathy: -admission CT head showed no acute intracranial abnormality -admission ammonia level on admission 90 -MRI brain 02/20/2020: No evidence for an acute ischemic event. Age-related director critical care santhosh small vessel change and atrophy. No evidence for abnormal postcontrast enhancement. -on Lactulose, IV thiamine . Zinc supplements -extubated on 02/23/2020, as of 02/24/2020 patient has good mentation, responds to questions in appropriate manner, sitting up in chair. with assistance he was able to get to commode as per nursing staff. Patient denies acute pain. denies other symptoms -02/25/2020: Patient seen and examined in the ICU. No acute events overnight. Patient on nasal cannula oxygen at 2 liters/min. Continues to have OG to nose. Patient appears is somewhat lethargic but able to say 1 to 2 words clearly to medical physician although he also had some mumbling speech. He does not appear to be in acute pain -02/26/2020: ICU physician started patient on Ciprofloxacin 500 mg daily on 02/26/2020 which is primarily part of patient's previous home medication for secondary prophylaxis after episode of spontaneous bacterial peritonitis in the past. continue ciprofloxacin daily. continue rifaximin and lactulose Hypernatremia -serum sodium 146 on 02/22/2020 and the 147. patient has been on diuretics. serum sodium 146 on 02/24/2020. serum sodium is 144 on 02/25/2020 (6) Acute kidney injury superimposed on CKD: -admission creatinine 1.6 -currently creatinine at baseline (7) NSTEMI (non-ST elevated myocardial infarction): -NSTEMI/Ischemic heart disease versus stress-induced cardiomyopathy noted on admission. Ejection fraction is moderately reduced at 35 to 40%. -repeat echocardiogram shows Ejection Fraction of 55 to 60%with hypokinesis in apical areas of the heart -as per cardiology service Patient is not a candidate for anticoagulation, antiplatelet, or statin therapy at this time. (8) Paroxysmal A-fib: -no acute telemetry events recently, heart rates appears controlled and stable (9) Acute upper GI bleed: -admission Hgb as 12.9 with coffee ground emesis in ER. -patient has been give IV protonix on this admission and hemoglobin has generally trended down to 9 and then 8. Hgb is 7.7 on 02/23/2020 -On 02/23/2020: Patient's family Isamar gave verbal consent over the phone fo blood transfusion as needed but followup CBC above 8 so far -02/24/2020 FOBT is negative Thrombocytopenia -history of cirrhosis -kathryn platelet levels of around 100 K DVT prophylaxis: SCDs CODE STATUS DNR/DNI Family Daughter Isamar [phone]; [phone] Son Slick [phone] Daughter in Law Noelle [phone] Admission and Anticipated Discharge Date Admission Date: February 16, 2020 Subjective -Patient transferred out from ICU level of care on 02/27/2020. Patient had NG tube feedings. He pull out NG tube after going to [facility] on 02/27/2020. Patient seen in the AM of 02/28/2020 and breathing comfortably on room air. No NG tube at this time. He is awaiting evaluation by speech and swallow services and they have ordered Videofluoroscopic Swallowing Study (VFSS) No chest pain. no abdomen pain. no vomiting. no fevers. Patient is verbal and cooperative and does not report other symptoms. He says that he "feels well" Review of Systems Review of Systems: All systems reviewed & are unremarkable except as noted in Subjective Physical Exam Constitutional: + frail appearing Eyes: PERRL, conjunctivae normal, anicteric sclerae ENMT: external ear and nose normal, oropharynx normal (OG tube in nose for fe eding) Neck: normal visual inspection Respiratory: normal respiratory effort Cardiovascular: Rate/Rhythm: regular rate Chest (Breasts): Chest: normal inspection of chest Gastrointestinal (Abdomen): Percussion/Palpation: abdomen soft Musculoskeletal: Head/Neck/Chest: normocephalic Neurologic: PERRL, EOMI, accommodation nl, no face palsy, no dysarthria Psychiatric: Orientation: alert and cooperative Results & Data Results & Data ([facility]) Vital Signs (Past 12 Hours) Vital Signs Temp Pulse Pulse Resp BP BP Pulse Ox 02/28/20 07:19 36.3 C L 62 18 90/53 L 97 02/28/20 03:44 36.7 C 66 18 91/50 L 93 02/27/20 23:35 67
[2020-02-28] MEDS: SODIUM CHLORIDE 0.9% IV SCH (10:09)
[2020-02-28] MEDS: THIAMINE HCL IV SCH (10:09)
[2020-02-28] MEDS: ENOXAPARIN INJ 40 MG/0.4 ML SYR SQ SCH (10:10)
--- NOTE | 2020-02-28 13:31 | Fluoroscopy Report ---
MODIFIED BARIUM SWALLOW CLINICAL HISTORY: assess for aspiration, H/O head and neck cancer COMPARISON STUDY: None. FLUOROSCOPY TIME: 2.2 minutes. TECHNIQUE: A modified barium swallow was performed in conjunction with Speech Pathology. The patient ingested varying consistencies of barium containing material. Video fluoroscopy was performed. FINDINGS: Trace silent tracheal aspiration was noted with thin liquids by spoon. Moderate residuals w ere noted with swallows of thin liquids. Note was made of multiple episodes of silent tracheal aspira tion with nectar thick liquids and pudding consistencies. IMPRESSION: 1. Multiple episodes of silent tracheal aspiration with thin liquids, nectar thick liquids and puddin g consistencies. 2. Full recommendations by speech pathology to follow. ACT 112: Negative or not required by law. Electronically signed by: Joce Ferguson M.D. 02/28/2020 1:30 PM
[2020-02-28] MEDS: LACTULOSE SYRUP 20 GM/30 ML UDC PO SCH ×2 (14:06→19:59)
[2020-02-28] MEDS: MULTIVITAMIN TAB PO SCH (14:07)
[2020-02-28] MEDS: FAMOTIDINE 40 MG TABLET PO SCH (14:07)
[2020-02-28] MEDS: ASCORBIC ACID 500 MG TAB PO SCH (14:07)
[2020-02-28] MEDS: RIFAXIMIN 550 MG TABLET PO SCH (14:07)
[2020-02-28] MEDS: ZINC SULFATE 220 MG CAPSULE PO SCH (14:07)
--- NOTE | 2020-02-28 14:13 | Palliative Care Progress Note ---
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 In Ed, patient had coffee ground emesis, was lethargic and not answering questions. he was intubated. CT abd/pelvis showed high-grade partial or complete SBO due to herniated short segment of small bowel within the ventral hernia. OG tube placed for decompression. Ammonia elevated at 90, CT head showed nothing acute. Patient was also noted to have elevated troponin and some ST elevated on EKG, however, no cardiac catheterization performed as patient taken to the OR for emergent open repair of ventral hernia and small bowel release. Post-operatively, patient sent to ICU, intubated and on pressors. Labs were monitored closely, and CXR had some increased bilateral opacities. He was treated for CHF exacerbation with IV Lasix. Patient was extubated on 02/21-is stable on O2 at 2 L. Still not following commands, able to say a few words clearly -Current plan is to continue current care. Patient's CODE STATUS is DNR. Patient pulled out his NG tube-had a video swallow earlier today-aspirated all consistencies, patient is a silent aspirator, no cough -Prognosis is guarded, patient remains critically ill -Spoke with patient's daughter, Isamar, regarding treatment options. She will discuss with patient's and [id number]-discussed returning home with permissive aspiration under hospice care. (2) ARDS (adult respiratory distress syndrome): (3) Chronic liver disease and cirrhosis: Subjective Patient seen and examined-just returned from a video swallow. Speech reports patient failed miserably with all consistencies. Patient had pulled out his NG tube. Patient is comfortable, no acute distress. Confused, when asked what year it was he replied it there is one on the left and there is one on the right. Spoke with patient's [phone]. Daughter Isamar and [id number] Noelle are heavily involved in decision-making, his is included in conversations. Spoke with Isamar regarding possible options at this point. She really reported that they have been told in the past by his railway switchman that he would not be a candidate for a G-tube due to his prior surgeries and his severe liver cirrhosis. Patient's INR is 1.5 with an albumin of 1.9. Isamar stated she would discuss results of the swallow test with her [id number] Noelle as well as her mother. Did inform Isamar that an option would be to allow him to eat and go home under hospice care realizing that he would continue to aspirate. Collaborated with attending physician Dr. Brennen Montaño Review of Systems Review of Systems: Unobtainable due to cognitive status Physical Exam Physical Exam: PE: Patient awake and alert, no acute distress HEENT: [place], EOMI. Patient had bilateral hearing aids in place Respirations: Unlabored, sats 98% on room air CV: Bradycardic Abdomen: Soft, nontender Neuro: Confused, oriented to person Results & Data Vital Signs (Past 12 Hours) Vital Signs Temp Pulse Pulse Resp BP BP Pulse Ox 02/28/20 11:42 97.9 F 53 L 18 107/65 98 02/28/20 08:00 65 02/28/20 07:19 97.3 F L 62 18 90/53 L 97 02/28/20 03:44 98.1 F 66 18 91/50 L 93 PG Care Time/CCT Total # of Minutes Spent Total Time Spent with Patient: Total time spent 35 minutes with greater than 50% of the time evaluating patient's current status as well as updating family. Coding Level of Care Code 27302 Subseq Hosp Care Lvl 3 Diagnoses Goals of care, counseling/discussion Z71.89 ARDS (adult respiratory distress syndrome) J80 Chronic liver disease and cirrhosis K74.60; K76.9 Time Spent (min) 35
[2020-02-28] MEDS: D5W AND 1/2NSS 1,000 ML IV SCH (15:32)
[2020-02-28] MEDS ORDERED: PHYTONADIONE 2.5 MG in SODIUM CHLORIDE 0.9% 50 ML IV ONE (18:15)
[2020-02-29] MEDS: INSULIN ASPART 100 UNITS/ML 3 ML PEN SC SCH ×5 (00:19→21:06)
[2020-02-29 06:34] LABS: Basophils # (auto) 0.01 K/uL (0-0.2); Basophils % (auto) 0.2 %; Eosinophils # (auto) 0.37 K/uL (0-0.5); Eosinophils % (auto) 6.3 %; Hematocrit (blood only) 25.3 % (42-52); Hemoglobin 8.2 g/dL (14.0-18.0); Immature Granulocytes # (auto) 0.12 K/uL (0.00-0.02); Immature Granulocytes % (auto) 2.1 %; Lymphocytes # (auto) 1.06 K/uL (1.2-3.4); Lymphocytes % (auto) 18.2 %; Mean Corpuscular Hemoglobin 32.2 pg (25-34); Mean Corpuscular Hgb Conc 32.4 g/dL (32-36); Mean Corpuscular Volume 99.2 fL (80-100); Mean Platelet Volume 10.3 fL (7.4-10.4); Monocytes # (auto) 0.85 K/uL (0.11-0.59); Monocytes % (auto) 14.6 %; Neutrophils # (auto) 3.42 K/uL (1.4-6.5); Neutrophils % (auto) 58.6 %; Platelet Count 145 K/uL (130-400); RDW Coefficient of Variation 17.3 % (11.5-14.5); RDW Standard Deviation 60.2 fL (36.4-46.3); Red Blood Count 2.55 M/uL (4.7-6.1); White Blood Count 5.83 K/uL (4.8-10.8)
[2020-02-29 06:44] LABS: INR 1.2 (0.9-1.1); Prothrombin Time 12.4 Seconds (9.0-12.0)
[2020-02-29 07:04] LABS: Albumin Level 1.8 gm/dl (3.4-5.0); Calcium 8.1 mg/dl (8.5-10.1); Creatinine Clr Calc Pharmacy 56.4 ml/min; Est GFR (African American) 97.5; Est GFR (Non-African American) 84.1; Magnesium 2.1 mg/dl (1.8-2.4); Potassium 3.6 mmol/L (3.5-5.1)
[2020-02-29 07:07] LABS: Albumin Globulin Ratio 0.6 (0.9-2); Bilirubin,Total 0.8 mg/dl (0.2-1); Globulin 2.9 gm/dl (2.5-4.0); Total Protein 4.7 gm/dl (6.4-8.2)
[2020-02-29] MEDS: LACTULOSE SYRUP 20 GM/30 ML UDC PO SCH ×2 (09:25→21:03)
--- NOTE | 2020-02-29 11:12 | Gastrointestinal Consultation ---
Date of Consultation February 29, 2020 Assessment & Plan (1) Dysphagia: Pt is a 80 y/o male w complicated past medical hx of cirrhosis, refractory ascites despite TIPS placement, hx of SBP, SCC of head/neck who was admitted for SBO secondary to incarcerated ventral hernia. He underwent hernia reduction and SBO release on 02/15, remained ventilated and extubated on 02/22. He had Coresafe tube in place for nutrition but pulled it out. Repeat Speech Therapy eval and Video swallow study showed that he is aspirating silently with thin, nectar thick and pudding consistency foods. GI was consulted to determine if pt would be a candidate for PEG tube placement. Unfortunately given his refractory ascites, he would not be a candidate for this as the ascites would prevent his PEG tract from healing and also giving him at risk for bacterial peritonitis. Chart reviewed. Pt is examined awake up in bed, oriented to self only, however appears comfortable and cooperative. HRR, Diminished bilateral lung limon, abd soft, non tender, dressing CDI. I had a thorough and lengthy conversation w pt's daughter (Isamar) and daughter in law (Noelle) over the phone. I explained to them both the rationale of why pt isn't a PEG candidate as noted above. Other options of feeding would be via re-attempt placement of Coresafe tube however noted this will not be a permanent route of feeding as he may likely pull it out again and also most correction/rehab place would likely not accept pt with Coresafe tub e. TPN is also a possibility though risk with this include sepsis. They are both aware the option of continuing pt's PO intake and permissive aspiration, which Noelle is leaning towards. The family will discuss together and call the medical team back after reaching a decision. Pls recall GI prn History of Present Illness Attending Physician: Brennen Montaño MD Allergies Allergy/AdvReac Type Severity Reaction Status Date / Time No Known Allergies Allergy Verified 02/16/20 13:03 Home Medications Home Medications Medication Instructions Recorded Confirmed Type Centrum Silver 1 tab PO QAM 12/21/18 02/16/20 History tamsulosin [Flomax] 0.4 mg PO QAM 12/21/18 02/16/20 History loratadine 10 mg PO DAILY PRN 01/07/19 02/16/20 History polyethylene glycol 3350 [Miralax] 17 g PO DAILY PRN 01/27/19 02/16/20 History artificial tears(hypromellose) 0.3 1 drops OP QID PRN 02/17/19 02/16/20 History % eye gel cholecalciferol (vitamin D3) 50 2,000 units PO QAM tab 02/17/19 02/16/20 H istory mcg (2,000 unit) tablet sodium chloride 0.65 % nasal spray 2 sprays INTNAS QID PRN 02/17/19 02/16/20 History aerosol Xifaxan 550 mg PO BID 06/12/19 02/16/20 History lactulose 45 ml PO TID 08/06/19 02/16/20 History Restasis 1 drp OPHTHALMIC (EYE) Q12H 09/22/19 02/16/20 History atorvastatin [Lipitor] 10 mg PO HS 09/22/19 02/16/20 History lancets 09/22/19 02/16/20 History omeprazole 20 mg PO DAILY 09/22/19 02/16/20 History ipratropium bromide 2 spray INTRANASAL QID PRN 10/02/19 02/16/20 History azelastine 2 spray INTRANASAL BID 11/17/19 02/16/20 History fluoride (sodium) [PreviDent 5000 1 applic DENTAL TID 11/17/19 02/16/20 History Plus] pilocarpine HCl 5 mg tablet 5 mg PO TID #90 tab 12/23/19 02/16/20 Rx ciprofloxacin HCl 500 mg PO DAILY 01/11/20 02/16/20 History fluoride (sodium) [DentaGel] 1 applic DENTAL DAILY 02/16/20 02/16/20 History furosemide [Lasix] 20 mg PO DAILY 02/16/20 02/16/20 History ondansetron 4 mg PO Q8 PRN 02/16/20 02/16/20 History spironolactone [Aldactone] 100 mg PO QAM 02/16/20 02/16/20 History Patient History Medical History Anemia ARDS (adult respiratory distress syndrome) Ascites (Chronic) 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 Elevated LFTs suspected to be from DILI vs AIH. LFTs normalized now so immunosuppression use was deferred. 4L fluid drained 12/15. Abdomen noticeably distended at PAT appt on 12/31/18. BPH (benign prostatic hyperplasia) (Chronic) Cirrhosis (Chronic) Depression (Chronic) Diabetes mellitus, type II (Chronic) PER , METFORMIN RECENTLY D/C. GERD (gastroesophageal reflux disease) (Chronic) History of abdominal paracentesis (Resolved) 06/11/19, 02/08/19, 11/2018 HLD (hyperlipidemia) (Chronic) HTN (hypertension) (Chronic) No current meds Paroxysmal A-fib (Chronic) FOLLOWS W/ [facility] Poor historian PVCs (premature ventricular contractions) (Chronic) S/P admission to ICU (intensive care unit) Septic shock Sleep apnea (Chronic) NO DEVICE USED Spontaneous bacterial peritonitis (Resolved) Jun 2018. Pt was admitted for a fib RVR and ascites, fluid drawn from abdomen showed SBP. Treated with ABX and discharged. Following now with [facility] (Tyler/Lizzette Mitchell) and Dr. Monreal (Hepatology). Umbilical hernia Upper GI bleed Surgical History History of adenoidectomy (Chronic) 01/11/19 History of cataract surgery (Chronic) RT/LEFT History of colonoscopy (Chronic) 01/30/16 History of ERCP (Chronic) 05/12/18 - stent removed History of esophagogastroduodenoscopy (EGD) (Chronic) 11/07/2010, 06/23/18 - with endoscopic US History of eye surgery (Chronic) 2008 - TEAR DUCT OPENED UP History of hernia repair (Chronic) 04/02/18 History of intraocular lens implant (Chronic) 2008 - Bilateral History of laryngoscopy (Chronic) 01/11/19 - with biopsies + right modified radical cervical lymphadenectomy History of liver biopsy (Chronic) 05/2018 History of tonsillectomy (Chronic) 01/11/19 History of tooth extraction (Chronic) 01/11/19 S/P cholecystectomy (Chronic) 04/02/2018. Yan 2, grade 1 view. 8.0 ETT. 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 Sister , Passed age 6 months of pneumonia No problems noted. Brother , Passed in late 50's of [place] No problems noted. Sister , Passed in 60's of diabetic complications No problems noted. Sister No problems noted. Daughter Breast cancer, Onset Age: 40 Stage III - Currently doing well Brother No problems noted. Brother No problems noted. 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 Feels Safe at Home: Yes Smoking Status: Former smoker Tobacco Type: smokeless tobacco ; packs per day: 0.5 ; Second Hand Exposure: No ; Childhood Exposure to Second-Hand Smoke: Yes caffeine: Yes (3 cups of coffee/week with tea inbetween ) during the past year weight has: decreased > 10 lbs Dental Care, Regularly: No Results & Data ([facility]) Vital Signs (Past 12 Hours) Vital Signs Temp Pulse Pulse Resp BP BP Pulse Ox 02/29/20 07:37 59 L 02/29/20 07:10 36.6 C 54 L 18 90/41 L 97 02/29/20 03:40 93/58 L 02/29/20 03:25 36.6 C 58 L 20 84/46 L 98 02/29/20 00:00 57 L 02/28/20 23:54 36.7 C 60 17 96/60 L 96
[2020-02-29] MEDS: D5W AND 1/2NSS 1,000 ML IV SCH (12:07)
[2020-02-29] MEDS ORDERED: Nursing to Pharmacy Communication ONE (12:48)
--- NOTE | 2020-02-29 12:57 | Hospitalist Progress Note ---
Date of Service February 29, 2020 Assessment & Plan (1) Incarcerated ventral hernia: (2) SBO (small bowel obstruction): -Present on admission on 02/16/2020 with altered mental status, abdominal distention, with vomiting -admission CT abd/pelvis showed highly concerning for a high-grade partial or complete small bowel obstruction. This may be due to interval development of a herniated short segment of small bowel within the ventral hernia. -Operation Date 02/16/20 Incarcerated Ventral Hernia x 2, Small bowel Obstruction -there are no further plans for abdominal surgery as per general surgery service, patient was extubated on 02/23/2020 and so far has been transitioned aerosol mask and to nasal cannula oxygen. Patient did not pass speech swallow evaluations so OG tube was placed for feeds on 02/24/2020 and the IV protonics is transitioned to oral famotidine -Patient transferred out from ICU level of care on 02/27/2020. Patient had NG tube feedings. He pull out NG tube after going to medical [facility] on 02/27/2020. On 02/28/2020 he had re-evaluation by speech and swallow services and petformed Videofluoroscopic Swallowing Study (VFSS); As per speech and swallow therapist "Mr Nelson had video swallow study. He not only had nasal-pharyngeal regurgitation of some boluses he also SILENTLY aspirated all consistencies. Some of them it was sienna aspiration. I have no recommendations for safe oral intake for this patient. He would need extensive amounts of dysphagia therapy to resolve this diffuse and severe dysphagia." -goals of care discussed in detail with patient's family daughter Isamar and her family relation Noelle that patient not a candidate for PEG or PEJ placement as per discussions with gastronenterology, that NG or OG tube feeds would be only a temporary feeding measure, that total parental nutrition puts patient at high risk of infection and the volume can worsen ascites -as of 02/29/2020 Isamar wishes for food to be given despite patient being an aspiration risk. start puree diet for now, continue aspiration precautions and oral hygiene (3) Aspiration pneumonia: -patient has been managed in ICU for Acute respiratory distress syndrome (ARDS) / aspiration pneumonia -had remained intubated from admission and extubated on 02/23/2020 after undergoing course of IV steroids, IV antibiotics of Zosyn and diuretics as per ICU physician -continues to be on IV Zosyn as of 02/26/2020 for completion of Zosyn course. (4) Cirrhosis: -history of Cirrhosis with ascites. S/P TIPS in 2019. Requires recurrent paracentesis in previous hospital presentations (5) Acute hepatic encephalopathy: -admission CT head showed no acute intracranial abnormality -admission ammonia level on admission 90 -MRI brain 02/20/2020: No evidence for an acute ischemic event. Age-related chronic small vessel change and atrophy. No evidence for abnormal postcontrast enhancement. -on Lactulose, IV thiamine . Zinc supplements -extubated on 02/23/2020, as of 02/24/2020 patient has good mentation, responds to questions in appropriate manner, sitting up in chair. with assistance he was able to get to commode as per nursing staff. Patient denies acute pain. denies other symptoms -02/25/2020: Patient seen and examined in the ICU. No acute events overnight. Patient on nasal cannula oxygen at 2 liters/min. Continues to have OG to nose. Patient appears is somewhat lethargic but able to say 1 to 2 words clearly to medical physician although he also had some mumbling speech. He does not appear to be in acute pain -02/26/2020: ICU physician started patient on Ciprofloxacin 500 mg daily on 02/26/2020 which is primarily part of patient's previous home medication for secondary prophylaxis after episode of spontaneous bacterial peritonitis in the past. continue ciprofloxacin daily. continue rifaximin and lactulose Hypernatremia -serum sodium 146 on 02/22/2020 and the 147. patient has been on diuretics. serum sodium 146 on 02/24/2020. serum sodium is 144 on 02/25/2020 (6) Acute kidney injury superimposed on CKD: -admission creatinine 1.6 -currently creatinine at baseline (7) NSTEMI (non-ST elevated myocardial infarction): -NSTEMI/Ischemic heart disease versus stress-induced cardiomyopathy noted on admission. Ejection fraction is moderately reduced at 35 to 40%. -repeat echocardiogram shows Ejection Fraction of 55 to 60%with hypokinesis in apical areas of the heart -as per cardiology service Patient is not a candidate for anticoagulation, antiplatelet, or statin therapy at this time. (8) Paroxysmal A-fib: -no acute telemetry events recently, heart rates appears controlled and stable (9) Acute upper GI bleed: -admission Hgb as 12.9 with coffee ground emesis in ER. -patient has been give IV protonix on this admission and hemoglobin has generally trended down to 9 and then 8. Hgb is 7.7 on 02/23/2020 -On 02/23/2020: Patient's family Isamar gave verbal consent over the phone fo blood transfusion as needed but followup CBC above 8 so far -02/24/2020 FOBT is negative Thrombocytopenia -history of cirrhosis -kathryn platelet levels of around 100 K DVT prophylaxis: SCDs CODE STATUS DNR/DNI Family Daughter Isamar [phone]; [phone] Son Slick [phone] Daughter in Law Noelle [phone] Admission and Anticipated Discharge Date Admission Date: February 16, 2020 Subjective -goals of care discussed in detail recently with patient's family daughter Isamar and her family relation Noelle that patient not a candidate for PEG or PEJ placement as per discussions with gastronenterology, that NG or OG tube feeds would be only a temporary feeding measure, that total parental nutrition puts patient at high risk of infection and the volume can worsen ascites as of 02/29/2020 Isamar wishes for food to be given despite patient being an aspiration risk. start puree diet for now, continue aspiration precautions and oral hygiene On my exam with patient at bedside with palliative care doctor, patient is verbal and seems to have good understanding. He expressed insight that he knows his family is concerned about him choking from food. When talking about puree food options, he started talking about enjoying oatmeal. At home he likes strawberries. I said we should start foods softer than strawberries for now. He wishes to go home but I expressed that his family wants him to go get physical rehabilitation and he expresses understanding Review of Systems Review of Systems: All systems reviewed & are unremarkable except as noted in Subjective Physical Exam Constitutional: + frail appearing Eyes: PERRL, conjunctivae normal, anicteric sclerae ENMT: external ear and nose normal, oropharynx normal (OG tube in nose for feeding) Neck: normal visual inspection Respiratory: normal respiratory effort Cardiovascular: Rate/Rhythm: regular rate Chest (Breasts): Chest: normal inspection of chest Gastrointestinal (Abdomen): Percussion/Palpation: abdomen soft Musculoskeletal: Head/Neck/Chest: normocephalic Neurologic: PERRL, EOMI, accommodation nl, no face palsy, no dysarthria Psychiatric: Orientation: alert and cooperative Results & Data Results & Data ([facility]) Vital Signs (Past 12 Hours) Vital Signs Temp Pulse Pulse Resp BP BP Pulse Ox 02/29/20 11:12 36.8 C 60 18 105/51 L 96 02/29/20 07:37 59 L 02/29/20 07:10 36.6 C 54 L 18 90/41 L 97 02/29/20 03:40 93/58 L 02/29/20 03:25 36.6 C 58 L 20 84/46 L 98
--- NOTE | 2020-02-29 13:35 | Palliative Care Progress Note ---
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 In Ed, patient had coffee ground emesis, was lethargic and not answering questions. he was intubated. CT abd/pelvis showed high-grade partial or complete SBO due to herniated short segment of small bowel within the ventral hernia. OG tube placed for decompression. Ammonia elevated at 90, CT head showed nothing acute. Patient was also noted to have elevated troponin and some ST elevated on EKG, however, no cardiac catheterization performed as patient taken to the OR for emergent open repair of ventral hernia and small bowel release. Post-operatively, patient sent to ICU, intubated and on pressors. Labs were monitored closely, and CXR had some increased bilateral opacities. He was treated for CHF exacerbation with IV Lasix. Patient was extubated on 02/21-is now stable on RA. Speech is markedly improved -Current plan is to continue current care. Patient's CODE STATUS is DNR. Vishal wells pulled out his NG tube, failed a video swallow on 02/27-aspirated all consistencies, patient is a silent aspirator, no cough -Prognosis is guarded, patient continuing to improve -Spoke with patient's daughter, Isamar, regarding treatment options. Family would like patient to go to rehab to work with PT/OT/[employer]IRWAY [employer]ER (2) ARDS (adult respiratory distress syndrome): (3) Chronic liver disease and cirrhosis: Subjective Patient seen and examined, no acute distress Patient with poor insight regarding his dysphasia. Patient reports he does not choke on his food-he does have silent aspiration. Patient wanting to get stronger and go home Spoke with patient's daughter, Isamar, [phone]. Family would like to give patient a chance to improve his swallowing as well as strength and ambulation so he could return home Patient is not a candidate for PEG tube per GI. He would likely not benefit from PPN as he would likely pull out the catheter as well as have difficulty tolerating due to liver disease. Family would like to allow patient to eat with strict aspiration precautions. Collaborated with attending physician as well as case management. Review of Systems Review of Systems: Patient denies fever, chills, chest pain, shortness of breath, or abdominal pain Physical Exam Physical Exam: PE: Awake and alert, NAD HEENT: Very [place] even with bilateral hearing aids Respirations: Unlabored CV: Regular rate Abdomen: Nontender, not distended Neuro: Positive cognitive deficits Psych: Poor insight regarding dysphasia and other medical problems. Results & Data Vital Signs (Past 12 Hours) Vital Signs Temp Pulse Pulse Resp BP BP Pulse Ox 02/29/20 11:12 98.2 F 60 18 105/51 L 96 02/29/20 07:37 59 L 02/29/20 07:10 97.9 F 54 L 18 90/41 L 97 02/29/20 03:40 93/58 L 02/29/20 03:25 97.9 F 58 L 20 84/46 L 98 PG Care Time/CCT Total # of Minutes Spent Total Time Spent with Patient: Total time spent 35 minutes with greater than 50% of the time assessing patient's current status, determining patient's goals as well as family goals of care. Coding Level of Care Code 81172 Subseq Hosp Care Lvl 3 Diagnoses Goals of care, counseling/discussion Z71.89 ARDS (adult respiratory distress syndrome) J80 Chronic liver disease and cirrhosis K74.60; K76.9 Time Spent (min) 35
[2020-02-29] MEDS: CIPROFLOXACIN 500 MG TAB PO SCH (14:43)
[2020-02-29] MEDS: RIFAXIMIN 550 MG TABLET PO SCH (21:15)
[2020-03-01 06:30] LABS: Basophils # (auto) 0.01 K/uL (0-0.2); Basophils % (auto) 0.2 %; Eosinophils # (auto) 0.38 K/uL (0-0.5); Eosinophils % (auto) 6.9 %; Hematocrit (blood only) 23.7 % (42-52); Immature Granulocytes # (auto) 0.07 K/uL (0.00-0.02); Immature Granulocytes % (auto) 1.3 %; Lymphocytes # (auto) 1.08 K/uL (1.2-3.4); Lymphocytes % (auto) 19.5 %; Mean Corpuscular Hemoglobin 33.3 pg (25-34); Mean Corpuscular Hgb Conc 33.8 g/dL (32-36); Mean Corpuscular Volume 98.8 fL (80-100); Mean Platelet Volume 10.4 fL (7.4-10.4); Monocytes # (auto) 0.68 K/uL (0.11-0.59); Monocytes % (auto) 12.3 %; Neutrophils # (auto) 3.32 K/uL (1.4-6.5); Neutrophils % (auto) 59.8 %; Platelet Count 149 K/uL (130-400); RDW Coefficient of Variation 17.1 % (11.5-14.5); White Blood Count 5.54 K/uL (4.8-10.8)
[2020-03-01 06:39] LABS: INR 1.2 (0.9-1.1); Prothrombin Time 12.6 Seconds (9.0-12.0)
[2020-03-01 06:54] LABS: Albumin Level 1.9 gm/dl (3.4-5.0); BUN Creatinine Ratio 19.8 (10-20); Creatinine Clr Calc Pharmacy 56.2 ml/min; Est GFR (African American) 96.5; Est GFR (Non-African American) 83.3; Magnesium 1.7 mg/dl (1.8-2.4); Potassium 3.8 mmol/L (3.5-5.1)
[2020-03-01 07:02] LABS: Albumin Globulin Ratio 0.6 (0.9-2); Bilirubin,Total 0.8 mg/dl (0.2-1); Phosphorus 3.7 mg/dl (2.5-4.9); Total Protein 4.9 gm/dl (6.4-8.2)
[2020-03-01] MEDS: RIFAXIMIN 550 MG TABLET PO SCH (08:34)
[2020-03-01] MEDS: FAMOTIDINE 40 MG TABLET PO SCH (08:34)
[2020-03-01] MEDS: MULTIVITAMIN TAB PO SCH (08:34)
[2020-03-01] MEDS: ASCORBIC ACID 500 MG TAB PO SCH (08:34)
[2020-03-01] MEDS: CIPROFLOXACIN 500 MG TAB PO SCH (08:35)
[2020-03-01] MEDS: LACTULOSE SYRUP 20 GM/30 ML UDC PO SCH (08:35)
[2020-03-01] MEDS: INSULIN ASPART 100 UNITS/ML 3 ML PEN SC SCH ×2 (09:00→13:24)
[2020-03-01 11:34] VITALS: TEMP 97.9; O2SAT 100
[2020-03-01] MEDS ORDERED: ZINC SULFATE 220 MG CAPSULE PO SCH (12:00)
--- NOTE | 2020-03-01 16:04 | Discharge Summary ---
Date of Service March 01, 2020 Admission HPI Per Admitting Provider Pt is 80 y/o M with PMH cirrhosis with ascites s/p TIPS procedure in 2019, paroxysmal atrial fibrillation off beta-clau secondary to bradycardia, CKD III, dyslipidemia, sleep apnea, DM II presented to ER for altered mental status and vomiting. History obtained from ER staff and patient's secondary to patient currently being intubated. Spoke to patient's on phone he reports several days ago patient was complaining of discomfort around his ventral hernia site. States several days ago started with vomiting and patient's says does not think was vomiting that much. Was unsure of coloration of vomit or if any noted hematemesis or red blood. Reports patient has not eaten for the past couple of days. She reports pt is always "cold" but unaware of any fevers. Unsure of pt's bowel movement status. States earlier this morning patient started vomiting again and when she woke up she noticed patient was confused and was sleepy and not answering questions or talking. Patient's states she believes patient last took medications 2 days ago. reports patient had paracentesis 02/07/2020. Today EMS was called and patient was transported to ER. Upon ER arrival it is reported patient was lethargic and not answering questions but was noted to be looking around room and moving extremities. It was also noticed patient had coffee-ground like emesis. With patient's altered mental status and episodes of emesis concern for airway compromise and patient was intubated in ER. Patient had CT abdomen/pelvis which was concerning for high-grade partial or complete small bowel obstruction, may be due to interval development of a herniated short segment of small bowel within the ventral hernia. General surgery was consulted and plan to take patient to the OR. Admission Exam Per Admitting Provider General: ill appearing, WDWN Head: normocephalic, atraumatic Eyes: PERRL, conjunctiva non-injected, anicteric ENT: normal inspection external ears, nose, +OG tube and ET tube in place Neck: supple, trachea midline Lungs: intubated, +breath sounds bilaterally, +rhonchi, accessory muscle use CV: tachycardia 112, no murmur, no pretibial edema Abd: hypoactive BS, +ventral hernia with some skin discoloration Ext: no cyanosis, or erythema Neuro: Pt currently sedated and intubated Skin: warm, dry Principal Diagnosis Acute hepatic encephalopathy Acute upper GI bleed Incarcerated ventral hernia SBO (small bowel obstruction) NSTEMI (non-ST elevated myocardial infarction) Acute respiratory distress syndrome (ARDS) / aspiration pneumonia ASPIRATION, Severe Dysphagia Discharge Exam Constitutional: + frail appearing Eyes: PERRL, conjunctivae normal, anicteric sclerae ENMT: external ear and nose normal, oropharynx normal (OG tube in nose for feeding) Neck: normal visual inspection Respiratory: normal respiratory effort Cardiovascular: regular rate Chest (Breasts): normal inspection of chest Gastrointestinal: abdomen soft, No drainage from the incision covers with dressing Musculoskeletal: Head/Neck/Chest: normocephalic Neurologic: PERRL, EOMI, accommodation nl, no face palsy, no dysarthria Psychiatric: Orientation: alert and cooperative Discharge Data Allergies Allergy/AdvReac Type Severity Reaction Status Date / Time No Known Allergies Allergy Verified 02/16/20 13:03 Consultations 02/16/20 13:13 Consult General Surgery Stat ED Decision to Admit Stat 02/16/20 14:39 Consult Cardiology Stat 02/16/20 17:06 Consult Cardiology Routine Consult Case Management - Discharge Planning Routine Consult Field Training Manager Routine 02/16/20 17:15 Consult Gastroenterology Routine 02/16/20 17:35 Consult Field Training Manager Routine 02/20/20 11:26 Consult Neurology Routine 02/21/20 06:13 Consult Palliative Care Routine 02/28/20 17:59 Consult Gastroenterology Routine Procedures Performed Operation Date: 02/16/20 12:30 Actual Procedures p Open Ventral Hernia Repair(Not Applicable) - Regulo Shafer, Ordered Studies 02/16/20 11:43 CT abd pelvis wo con Stat CT head/brain wo con Stat 02/17/20 08:35 US point of care ultrasound Urgent 02/20/20 13:34 MR brain MS wo/w con Routine 02/28/20 12:45 FL video swallow Routine MODIFIED BARIUM SWALLOW CLINICAL HISTORY: assess for aspiration, H/O head and neck cancer COMPARISON STUDY: None. FLUOROSCOPY TIME: 2.2 minutes. TECHNIQUE: A modified barium swallow was performed in conjunction with Speech Pathology. The patient ingested varying consistencies of barium containing material. Video fluoroscopy was performed. FINDINGS: Trace silent tracheal aspiration was noted with thin liquids by spoon. Moderate residuals were noted with swallows of thin liquids. Note was made of multiple episodes of silent tracheal aspiration with nectar thick liquids and pudding consistencies. IMPRESSION: 1. Multiple episodes of silent tracheal aspiration with thin liquids, nectar thick liquids and pudding consistencies. 2. Full recommendations by speech pathology to follow. ACT 112: Negative or not required by law. Electronically signed by: Joce Ferguson M.D. 02/28/2020 1:30 PM Dictated: 02/28/20 1325 Transcribed: 02/28/20 132 KUB HISTORY: Status post placement of a feeding tube coresafe placement COMPARISON: KUB 02/16/2020 FINDINGS: Status post placement of a feeding tube, distal tip projected superiorly within the region of the pylorus/antrum. TIPS shunt. Air is noted within both loops of large and small bowel. There is decreased small bowel distention. Cholecystectomy. There is no organomegaly. No renal calculi. No ureteral calculi. No pneumoperitoneum or pneumatosis. Degenerative changes of the spine, pelvis and hips. No fracture. Cardiomegaly with left lung base opacities. IMPRESSION: Status post placement of a feeding tube, distal tip projected within the expected location of the pylorus/antrum. ACT 112: Negative or not required by law. The above report was generated using voice recognition software. It may contain grammatical, syntax or spelling errors. Electronically signed by: John Razo M.D. 02/24/2020 12:09 PM Dictated: 02/24/20 1207 Transcribed: 02/24/20 1207 XR chest 1V portable CLINICAL HISTORY: Respiratory failure COMPARISON STUDY: 02/22/2020 FINDINGS: There is a nasogastric tube which passes into the stomach. There is a right internal jugular central venous catheter unchanged in position. There is an endotracheal tube positioned 4.3 cm above the gareth. There are bilateral pulmonary airspace opacities consistent with pulmonary edema. An infectious process could appear similar. This appears minimally improved. There is a suspected right pleural effusion.[ IMPRESSION: 1. Mild improvement in the extensive bilateral pulmonary airspace opacities ACT 112: Negative or not required by law. Electronically signed by: Delfino Del Toro M.D. 02/23/2020 7:29 AM Dictated: 02/23/20726 Transcribed: 02/23/20726 XR chest 1V portable HISTORY: Respiratory failure. COMPARISON: Chest 02/21/2020. FINDINGS: The endotracheal tube terminates approximately 3.2 cm from the gareth. Nasogastric tube terminates in a postpyloric position. Right jugular central venous catheter terminates in the distal SVC. The heart remains top normal in size. No pneumothorax. Small bilateral pleural effusions are again noted. Near diffuse bilateral airspace opacities have slightly progressed. IMPRESSION: 1. Satisfactory support line placement. 2. Interval progression of the near diffuse bilateral airspace opacities and small bilateral pleural effusions. ACT 112: Negative or not required by law. Electronically signed by: Nacho Goss M.D. 02/22/2020 7:24 AM Dictated: 02/22/20721 Transcribed: 02/22/20721 CT abd pelvis wo con CLINICAL HISTORY: 80 years-old Male presenting with vomiting. TECHNIQUE: Multidetector CT of the abdomen and pelvis was performed without the use of intravenous contrast. IV contrast: None. One or more dose lowering techniques were used consistent with the principles of ALARA (as low as reasonably achievable), including automatic exposure control, mA or kV adjustment to individual patient size, and/or use of iterative reconstruction. COMPARISON: 11/17/2019. CT DOSE (mGy.cm): The estimated cumulative dose is 501.99 mGy.cm. FINDINGS: Cell Plasterer topogram: Cardiomegaly. TIPS also noted. Positioning of the arms over the upper abdomen mildly degrades image quality limiting diagnostic sensitivity. Lung bases: Normal heart size. Coronary artery and aortic valve calcification. No pericardial or pleural effusion. No focal infiltrate or nodule at the lung bases. Liver: The liver is atrophic compatible with cirrhosis. A transjugular intrahepatic portosystemic shunt is in place. Normal density of the liver. Biliary: Pneumobilia may be present centrally in both lobes. No gross biliary ductal dilatation allowing for noncontrast technique. Gallbladder surgically absent. Pancreas: Mild parenchymal atrophy. Spleen: Normal noncontrast appearance. Adrenal glands: Normal noncontrast appearance. Kidneys and ureters: Few cysts are noted. No nephrolithiasis or hydronephrosis. Ureters nondistended. Bladder: Circumferential bladder wall thickening. Pelvic organs: Normal noncontrast appearance. Bowel: Normal appendix. Mid ileum is dilated over 4 cm and fluid-filled with a suspected focal transition point in the midline ventral abdomen, where there may be a short segment herniated loop of small bowel. No such herniation was present on the prior exam. Distal ileum is decompressed. Evaluation significan tly limited by lack of intravenous and oral contrast. Peritoneal cavity: Decreased volume of ascites, which is now small to moderate. Ascites also contained within the multilocular ventral hernia. No pneumatosis or free intraperitoneal gas. Lymph nodes: No gross lymphadenopathy allowing for noncontrast technique. Vasculature: Atherosclerosis of the normal caliber abdominal aorta. Abdominal wall: Ventral hernia in the periumbilical region is again multilocular in appearance and contains ascites. A short segment of herniated segment of small bowel is also suspected within the hernia sac, which has a relatively narrow neck. The hernia neck is not well delineated but measures approximately 3 cm in comparison to the sac diameter of 13 cm. Severe gynecomastia also noted bilaterally. Musculoskeletal: Degenerative changes of the spine. IMPRESSION: 1. Evaluation degraded by lack of intravenous and oral contrast as well as positioning of the arms over the upper abdomen. Allowing for this, findings highly concerning for a high-grade partial or complete small bowel obstruction. This may be due to interval development of a herniated short segment of small bowel within the ventral hernia. Surgical consultation is recommended. 2. 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 3. Decreased volume ascites. No current evidence of portal hypertension. 4. Chronic bladder outlet obstruction may be present. The report will be called/faxed according to standard departmental protocol. ACT 112: Negative or not required by law. Electronically signed by: Naresh Bourne M.D. 02/16/2020 12:55 PM Dictated: 02/16/20 1237 Transcribed: 02/16/20 1238 XR chest 1V portable CLINICAL HISTORY: 80 years-old Male presenting with weakness. TECHNIQUE: Portable semiupright AP view of the chest was obtained. COMPARISON: 06/11/2019. FINDINGS: Atherosclerosis of the aortic arch. Cardiac silhouette normal in size. Bilateral hilar prominence is likely vascular. No focal opacity. No large effusion or pneumothorax. Degenerative changes of the thoracic spine. Osteopenia noted. Posttraumatic deformity of the right clavicle, unchanged. TIPS noted. Cholecystectomy clips. IMPRESSION: 1. No acute cardiopulmonary disease. ACT 112: Negative or not required by law. Electronically signed by: Naresh Bourne M.D. 02/16/2020 12:10 PM Dictated: 02/16/20 1209 Transcribed: 02/16/[address] head/brain wo con CLINICAL HISTORY: 80 years-old Male presenting with altered. TECHNIQUE: Multidetector CT imaging of the head was performed without the use of intravenous contrast. IV contrast: None. One or more dose lowering techniques were used consistent with the principles of ALARA (as low as reasonably achievable), including automatic exposure control, mA or kV adjustment to individual patient size, and/or use of iterative reconstruction. COMPARISON: 11/17/2019. CT DOSE (mGy.cm): The estimated cumulative dose is 614.27 mGy.cm. FINDINGS: Cell Plasterer topogram: Unremarkable. Proportional ventricular and sulcal prominence, likely age-related parenchymal volume loss. No hemorrhage. Brain parenchyma normal in appearance with preserved morelos-white differentiation. No acute territorial infarct. No mass effect or midline shift. No extra-axial fluid collection. Mild mucosal thickening of the left maxillary sinus. Calvarium intact. IMPRESSION: 1. No acute intracranial abnormality. ACT 112: Negative or not required by law. Electronically signed by: Naresh Bourne M.D. 02/16/2020 12:32 PM Dictated: 02/16/20 1230 Transcribed: 02/16/20 1230 Hospital Course (1) Incarcerated ventral hernia: (2) SBO (small bowel obstruction): -Present on admission on 02/16/2020 with altered mental status, abdominal distention, with vomiting -admission CT abd/pelvis showed highly concerning for a high-grade partial or complete small bowel obstruction. This may be due to interval development of a herniated short segment of small bowel within the ventral hernia. -Operation Date 02/16/20 Incarcerated Ventral Hernia x 2, Small bowel Obstruction -there are no further plans for abdominal surgery as per general surgery service, patient was extubated on 02/23/2020 and so far has been transitioned aerosol mask and to nasal cannula oxygen. Patient did not pass speech swallow evaluations so OG tube was placed for feeds on 02/24/2020 and the IV protonics is transitioned to oral famotidine -Patient transferred out from ICU level of care on 02/27/2020. Patient had NG tube feedings. He pull out NG tube after going to medical [facility] on 02/27/2020. On 02/28/2020 he had re-evaluation by speech and swallow services and petformed Videofluoroscopic Swallowing Study (VFSS); As per speech and swallow therapist "Mr Nelson had video swallow study. He not only had nasal-pharyngeal regurgitation of some boluses he also SILENTLY aspirated all consistencies. Some of them it was sienna aspiration. I have no recommendations for safe oral intake for this patient. He would need extensive amounts of dysphagia therapy to resolve this diffuse and severe dysphagia." -goals of care discussed in detail with patient's family daughter Isamar and her family relation Noelle that patient not a candidate for PEG or PEJ placement as per discussions with gastronenterology, that NG or OG tube feeds would be only a temporary feeding measure, that total parental nutrition puts patient at high risk of infection and the volume can worsen ascites -as of 02/29/2020 Isamar wishes for food to be given despite patient being an aspiration risk. start puree diet for now, continue aspiration precautions and oral hygiene (3) Aspiration pneumonia: -patient has been managed in ICU for Acute respiratory distress syndrome ( ARDS) / aspiration pneumonia -had remained intubated from admission and extubated on 02/23/2020 after undergoing course of IV steroids, IV antibiotics of Zosyn and diuretics as per ICU physician -continues to be on IV Zosyn as of 02/26/2020 for completion of Zosyn course. (4) Cirrhosis: -history of Cirrhosis with ascites. S/P TIPS in 2019. Requires recurrent paracentesis in previous hospital presentations Will need to resume diuretic once BP stable (5) Acute hepatic encephalopathy: -admission CT head showed no acute intracranial abnormality -admission ammonia level on admission 90 -MRI brain 02/20/2020: No evidence for an acute ischemic event. Age-related chronic small vessel change and atrophy. No evidence for abnormal postcontrast enhancement. -on Lactulose, IV thiamine . Zinc supplements -extubated on 02/23/2020, as of 02/24/2020 patient has good mentation, responds to questions in appropriate manner, sitting up in chair. with assistance he was able to get to commode as per nursing staff. Patient denies acute pain. denies other symptoms -02/25/2020: Patient seen and examined in the ICU. No acute events overnight. Patient on nasal cannula oxygen at 2 liters/min. Continues to have OG to nose. Patient appears is somewhat lethargic but able to say 1 to 2 words clearly to medical physician although he also had some mumbling speech. He does not appear to be in acute pain -02/26/2020: ICU physician started patient on Ciprofloxacin 500 mg daily on 02/26/2020 which is primarily part of patient's previous home medication for secondary prophylaxis after episode of spontaneous bacterial peritonitis in the past. continue ciprofloxacin daily. continue rifaximin and lactulose Hypernatremia -serum sodium 146 on 02/22/2020 and the 147. patient has been on diuretics. serum sodium 146 on 02/24/2020. serum sodium is 144 on 02/25/2020 (6) Acute kidney injury superimposed on CKD: -admission creatinine 1.6 -currently creatinine at baseline (7) NSTEMI (non-ST elevated myocardial infarction): -NSTEMI/Ischemic heart disease versus stress-induced cardiomyopathy noted on admission. Ejection fraction is moderately reduced at 35 to 40%. -repeat echocardiogram shows Ejection Fraction of 55 to 60%with hypokinesis in apical areas of the heart -as per cardiology service Patient is not a candidate for anticoagulation, antiplatelet, or statin therapy at this time. (8) Paroxysmal A-fib: -no acute telemetry events recently, heart rates appears controlled and stable (9) Acute upper GI bleed: -admission Hgb as 12.9 with coffee ground emesis in ER. -patient has been give IV protonix on this admission and hemoglobin has generally trended down to 9 and then 8. Hgb is 7.7 on 02/23/2020 -On 02/23/2020: Patient's family Isamar gave verbal consent over the phone fo blood transfusion as needed but followup CBC above 8 so far -02/24/2020 FOBT is negative Thrombocytopenia -history of cirrhosis -kathryn platelet levels above 100 K DVT prophylaxis: SCDs CODE STATUS DNR/DNI Family Daughter Isamar [phone]; [phone] Son Slick [phone] Daughter in Law Noelle [phone] Total Time Total Time Spent Total Time Spent (In Minutes): 40 minutes Total Time Includes: Examination of the Patient, Discharge Planning, Medication Reconciliation, Communication With Other Providers and Other Discharge Plan Discharge Items Patient Disposition: Transfer Inpatient Rehab Fac Reason For Visit: SBO,UPPER GI BLEED Discharge Diagnosis: Acute hepatic encephalopathy Acute upper GI bleed Incarcerated ventral hernia SBO (small bowel obstruction) NSTEMI (non-ST elevated myocardial infarction) Acute respiratory distress syndrome (ARDS) / aspiration pneumonia ASPIRATION, Severe Dysphagia Activity: Resume your previous activity Non-emergency contact: Primary Care Provider, Surgeon and Alumni Relations Manager Call non-emergency contact if: you have any medication questions and your temperature is above 101 Follow-up/Referrals: Regulo Shafer, [Surgeon] - (please call to schedule follow up within 2 weeks) Renard Das MD [Primary Care Provider] - Diet: Heart Healthy Diet Texture: Pureed (blended smooth) Addtl Attending Provider Instructions: Follow up with your primary care provider once discharge from rehab Follow up with surgery Dr. Shafer in 1 week ( please call for the appointment) Continue physical and occupation therapy Continue follow up with speech therapy Continue palliative evaluation Fall precaution Check CBC within 1 week to monitor hemoglobin Continue wound care daily or every other day Aspiration precaution (small and single bites and slow rates) Continue monitor your blood pressure Ok to resume diuretic at low dose once blood pressure starts to elevate Activities as tolerated Pending Studies at Discharge: No Stand-Alone Forms: My [facility] Skilled Items Patient informed of condition?: Yes DNR: Yes Discharge Level of Care: Acute rehab Communicable Disease: No Discharge Prognosis: Stable Lines: None Urinary Catheter: No Medications and DC Order Prescriptions: New zinc sulfate [Orazinc] 220 (50) mg Capsule 220 mg PO DAILY@1200 Qty: 30 RF: 0 Continued artificial tears(hypromellose) 0.3 % gel 1 drops OP QID PRN (Reason: dryness) RF: 0 sodium chloride [[place] Saline] 0.65 % aerosol,spray 2 sprays INTNAS QID PRN (Reason: dryness) RF: 0 pilocarpine HCl [Salagen (pilocarpine)] 5 mg tablet 5 mg PO TID Qty: 90 RF: 4 tamsulosin [Flomax] 0.4 mg Capsule 0.4 mg PO QAM RF: 0 Centrum Silver 400-250 mcg Tablet,Chewable 1 tab PO QAM RF: 0 cholecalciferol (vitamin D3) [Vitamin D3] 2,000 unit tablet 2,000 units PO QAM RF: 0 polyethylene glycol 3350 [Miralax] 17 gram/dose Powder 17 g PO DAILY PRN (Reason: Constipation) RF: 0 atorvastatin [Lipitor] 10 mg Tablet 10 mg PO HS RF: 0 (DME) lancets Misc MISCELLANEOUS RF: 0 omeprazole 20 mg Capsule,Delayed Release(Dr/Ec) 20 mg PO DAILY RF: 0 Restasis 0.05 % Dropperette 1 drp OPHTHALMIC (EYE) Q12H RF: 0 azelastine 137 mcg (0.1 %) Aerosol,[place] 2 spray INTRANASAL BID RF: 0 fluoride (sodium) [PreviDent 5000 Plus] 1.1 % Cream 1 applic DENTAL TID RF: 0 ciprofloxacin HCl 500 mg tablet 500 mg PO DAILY RF: 0 ondansetron 4 mg tablet,disintegrating 4 mg PO Q8 PRN (Reason: Nausea) RF: 0 fluoride (sodium) [DentaGel] 1.1 % gel 1 applic dental DAILY RF: 0 loratadine 10 mg Tablet 10 mg PO DAILY PRN (Reason: Allergic Symptoms) RF: 0 Xifaxan 550 mg tablet 550 mg PO BID RF: 0 ipratropium bromide 0.03 % spray,non-aerosol 2 spray INTRANASAL QID PRN (Reason: post nasal drip) RF: 0 Changed lactulose 20 gram/30 mL solution 45 ml PO BID Qty: 0 RF: 0 Discontinued furosemide [Lasix] 20 mg tablet 20 mg PO DAILY RF: 0 spironolactone [Aldactone] 50 mg tablet 100 mg PO QAM RF: 0 Admission Data Admit Date/Time: 02/16/20 13:42 Attending Provider: Dolores Harris Admit Provider: Kalyn Ambriz Primary Care Provider: Renard Das Other Providers: Robin Lau ; Ang Meneses Matthew D. ; Kalyn Ambriz ; Kiran Pierre ; Jacey Fields ; Rosanne Franks ; Amanda Diaz ; Shree Alvarado ; Arnaldo Scott ; Yazmin Stevens ; Drea Joseph ; Theo Gomes ; Jamaal Kendrick ; Zita Sargent ; Gwendolyn Erickson ; Lizzette Mitchell ; Xiomy Pyle ; Alvarez Parker ; Macy Pozo ; Vickie Chavez ; [facility] ; Brennen Montaño.
[2020-03-01 16:10] VITALS: BP 95/55
[2020-03-01 16:14] VITALS: PULSE 81
[2020-03-01] MEDS ORDERED: MAGNESIUM OXIDE 400 MG TAB PO SCH (16:15)
== END 2020-03-01 16:53 | DRG 353 ==
LOC: ED 11:40 → SUATTDRO 13:42 → OR 15:44 → 1E 15:45 → SUATTDRO 15:45 → 2N 02-27 11:36

== ENCOUNTER 2022-11-07 17:17 | Inpatient (IN) ==
--- NOTE | 2022-11-07 18:20 | XRay Report ---
XR chest 1V portable CLINICAL HISTORY: ams TECHNIQUE: Single frontal radiograph of the chest was obtained. Comparison: Comparison is made to chest radiograph 02/23/2020 FINDINGS: No lines and tubes are seen. Calcified aortic knob is seen. Faint bibasilar airspace opacities are se en. No evidence of pleural effusion or pneumothorax. IMPRESSION: Faint bibasilar airspace opacities which may represent atelectasis, pneumonia, and/or aspiration. ACT 112: Negative or not required by law. Electronically signed by: Caleb Forman M.D. 11/07/2022 6:18 PM
[2022-11-07 18:34] LABS: Basophils # (auto) 0.05 K/uL (0-0.2); Eosinophils # (auto) 0.36 K/uL (0-0.50); Eosinophils % (auto) 7.3 %; Hematocrit (blood only) 31.6 % (40.1-51.0); Immature Granulocytes # (auto) 0.02 K/uL (0.00-0.02); Immature Granulocytes % (auto) 0.4 %; Lymphocytes # (auto) 1.47 K/uL (1.2-3.4); Lymphocytes % (auto) 29.8 %; Mean Corpuscular Hgb Conc 34.8 g/dL (32.0-36.0); Mean Corpuscular Volume 91.9 fL (80.0-100.0); Mean Platelet Volume 9.6 fL (9.4-12.4); Monocytes # (auto) 0.45 K/uL (0.24-0.82); Monocytes % (auto) 9.1 %; Neutrophils # (auto) 2.58 K/uL (1.4-6.5); Neutrophils % (auto) 52.4 %; Platelet Count 186 K/uL (130-400); RDW Coefficient of Variation 13.9 % (11.5-14.5); RDW Standard Deviation 46.5 fL (36.4-46.3); Red Blood Count 3.44 M/uL (4.63-6.08); White Blood Count 4.93 K/ul (4.8-10.8)
[2022-11-07 18:39] LABS: Albumin Level 3.9 gm/dl (3.4-5.0); BUN Creatinine Ratio 14.1 (10-20); Bilirubin Direct 0.1 mg/dl (0-0.2); Bilirubin,Total 0.9 mg/dl (0.2-1.0); Calcium 9.5 mg/dl (8.5-10.1); Creatinine Clr Calc Pharmacy 34.6 ml/min; Est GFR (African American) 53.3 ml/min; Magnesium 1.6 mg/dl (1.7-2.4); Potassium 3.7 mmol/L (3.5-5.1); Total Protein 6.4 gm/dl (6.0-8.3)
[2022-11-07 18:43] LABS: Troponin I High Sensitivity 7.7 pg/ml (0-20)
[2022-11-07 18:44] LABS: INR 1.1 (0.9-1.1); Partial Thromboplastin Time 27.1 Seconds (21.0-31.0); Prothrombin Time 12.1 Seconds (9.0-12.0)
--- NOTE | 2022-11-07 18:45 | Emergency Department Note ---
History of Present Illness General Chief complaint: Weakness Stated complaint: WEAKNESS, OFF BALANCE, HEADACHE, ABDOMINAL PAIN Time Seen by Provider: 11/07/22 17:28 Source: patient and family (Daughter and ) History of Present Illness Provider complaint: Altered mental status confusion headache abdominal pain Onset (ago): week(s) 1 Maximum Pain Intensity: 5 82-year-old male presents emergency department for altered mental status confusion headache and abdominal pain. Patient's daughter who is at bedside sta ramiro that his symptoms have been going on for some time but is gotten worse in the last week. She reports that he is reported headache. Patient currently denies headache. Patient is reporting abdominal pain. Daughter reports that the patient has been more confused weak and has fallen lately. Patient is not on any blood thinners. Daughter states she is concerned that the patient might have carbon monoxide poisoning as he uses a propane heater in a close shed to do work. Daughter also mentions that the patient has a history of liver cirrhosis and is had a TIPS procedure in the past. Home Medications Medication Instructions Recorded Confirmed Type rifaximin 550 mg tablet (Xifaxan) 550 mg PO BID 06/12/19 12/26/21 History lancets 09/22/19 04/06/20 History omeprazole 20 mg capsule,delayed 20 mg PO QAM 09/22/19 11/07/22 History release ciprofloxacin HCl 500 mg tablet 500 mg PO QAM 10/05/21 11/07/22 History citalopram 10 mg tablet 10 mg PO HS 10/05/21 12/26/21 History furosemide 20 mg tablet 20 mg PO QAM 10/05/21 12/26/21 History levothyroxine 50 mcg tablet 50 mcg PO DAILYBB 10/05/21 11/07/22 History loratadine 10 mg tablet 10 mg PO DAILY PRN Allergy Symptoms 10/05/21 11/07/22 History spironolactone 50 mg tablet 50 mg PO QAM 10/05/21 11/07/22 History tamsulosin 0.4 mg capsule 0.4 mg PO QPM 10/05/21 11/07/22 History acetaminophen 325 mg capsule 325 mg PO Q6H PRN Pain 12/26/21 11/07/22 History (Tylenol) artificial tears(hypromellose) 0.3 1 drp ophthalmic (eye) QID PRN 12/26/21 12/26/21 History % eye gel artificial tears(hypromellose) 0.3 1 drp ophthalmic (eye) QID PRN 12/26/21 12/26/21 History % eye gel (Systane Gel) azelastine 137 mcg (0.1 %) nasal 2 spray intranasal BID 12/26/21 11/07/22 History spray aerosol cholecalciferol (vitamin D3) 25 50 mcg PO DAILY 12/26/21 11/07/22 History mcg (1,000 unit) capsule cyclosporine 0.05 % eye drops 1 drp ophthalmic (eye) Q12H 12/26/21 12/26/21 History (Restasis MultiDose) diclofenac sodium 1 % topical gel 4 g topical QID PRN 12/26/21 12/26/21 History (Arthritis Pain (diclofenac)) ferrous sulfate 325 mg (65 mg 325 mg PO DAILY 12/26/21 12/26/21 History iron) tablet (FeroSul) ipratropium bromide 21 mcg (0.03 2 - 4 spray intranasal QID 12/26/21 12/26/21 History %) nasal spray lactulose 20 gram/30 mL oral 45 ml PO TID 12/26/21 History solution magnesium citrate 100 mg tablet 400 mg PO DAILY 12/26/21 12/26/21 History midodrine 5 mg tablet 5 mg PO TID 12/26/21 11/07/22 History multivitamin 1 tab PO DAILY 12/26/21 12/26/21 History ondansetron HCl 4 mg tablet 4 mg PO Q8H PRN 12/26/21 12/26/21 History pilocarpine HCl 5 mg tablet 5 mg PO TID 12/26/21 12/26/21 History polyethylene glycol 3350 17 17 g PO DAILY 12/26/21 12/26/21 History gram/dose oral powder (Miralax) sodium chloride 0.65 % nasal spray 2 spray intranasal QID PRN 12/26/21 12/26/21 History aerosol ([place] Saline) finasteride 5 mg tablet 5 mg PO QAM 11/07/22 11/07/22 History metformin 500 mg tablet 500 mg PO BIDM 11/07/22 11/07/22 History uavefvlapwzu-fxmlohjh-odwxwh tablet 1 tab PO DAILY 11/07/22 11/07/22 History sertraline 25 mg tablet 25 mg PO HS 11/07/22 11/07/22 History Allergies Allergy/AdvReac Type Severity Reaction Status Date / Time No Known Allergies Allergy Verified 10/11/21 08:20 Past Med/Surg History Medical History Anemia Ascites 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 Elevated LFTs suspected to be from DILI vs AIH. LFTs normalized now so immunosuppression use was deferred. 4L fluid drained 12/15. Abdomen noticeably distended at [facility] appt on 12/31/18. BPH (benign prostatic hyperplasia) Cirrhosis Depression Diabetes mellitus, type II PER , METFORMIN RECENTLY D/C. GERD (gastroesophageal reflux disease) History of abdominal paracentesis 06/11/19, 02/08/19, 11/2018 History of throat cancer sx + radiation HLD (hyperlipidemia) HTN (hypertension) No current meds Paroxysmal A-fib FOLLOWS W/ [facility] Poor historian PVCs (premature ventricular contractions) Sleep apnea NO DEVICE USED Spontaneous bacterial peritonitis Jun 2018. Pt was admitted for a fib RVR and ascites, fluid drawn from abdomen showed SBP. Treated with ABX and discharged. Following now with [facility] (Tyler/Lizzette Mitchell) and Dr. Monreal (Hepatology). Umbilical hernia Upper GI bleed Surgical History History of adenoidectomy 01/11/19 History of cataract surgery RT/LEFT History of colonoscopy 01/30/16 History of ERCP 05/12/18 - stent removed History of esophagogastroduodenoscopy (EGD) 11/07/2010, 06/23/18 - with endoscopic US History of eye surgery 2008 - TEAR DUCT OPENED UP History of hernia repair 04/02/18 History of intraocular lens implant 2008 - Bilateral History of laryngoscopy 01/11/19 - with biopsies + right modified radical cervical lymphadenectomy History of liver biopsy 05/2018 History of tonsillectomy 01/11/19 History of tooth extraction 01/11/19 S/P cholecystectomy 04/02/2018. Yan 2, grade 1 view. 8.0 ETT. S/P TIPS (transjugular intrahepatic portosystemic shunt) 03/16/[place] [facility] [place] History Mother , Passed age 49 from Leukemia No problems noted. Sister , Passed age 6 months of pneumonia No problems noted. Brother , Passed in late 50's of [place] No problems noted. Sister , Passed in 60's of diabetic complications No problems noted. Sister No problems noted. Daughter Breast cancer, Onset Age: 40 Stage III - Currently doing well Brother No problems noted. Brother No problems noted. Other Family history of diabetes mellitus Social History Smoking Status: Former smoker Tobacco Type: Cigarettes and Smokeless Tobacco (Dip or Chew) packs per day: 0.5; Second Hand Exposure: No; Hx Alcohol Use: No Hx Substance Use: No Preferred Language: Slovenian Communication Ability: Unable Visual Impairment: No Limitations Hearing Ability: Use of Hearing Aid Neurologist Required: No Beliefs That Will Affect Care: None marital status: Current Living Situation: Spouse current occupational status: retired current occupation: Retired [employer] Feels Safe at Home: Yes Childhood Exposure to Second-Hand Smoke: Yes caffeine: Yes (3 cups of coffee/week with tea inbetween ) during the past year weight has: decreased > 10 lbs Dental Care, Regularly: No Assistive Devices: Cane, Denture - Upper, Hearing Aid - Bilateral and Walker Physical Exam Vital Signs Vital Signs - 24 hr 11/07/22 17:20 11/07/22 18:03 11/07/22 18:03 Temperature 36.6 C Temperature Source Temporal Artery Scan Pulse Rate 66 Pulse Rate [Apical] 67 Pulse Rate from SpO2 Sensor Pulse Rhythm [Apical] Pulse Strength [Apical] Respiratory Rate 18 18 Respiratory Effort / Characteristics Non-Labored Spontaneous Respiratory Depth Normal Respiratory Pattern Regular Blood Pressure 137/69 Blood Pressure [Right Arm] 122/64 Blood Pressure Mean 91 Blood Pressure Mean [Right Arm] 83 Blood Pressure Position Sitting Pulse Oximetry 99 99 Oxygen Delivery Method Room Air Room Air Room Air Sepsis Recent Fever Within 48 Hours No Sepsis New/Unexplained Change in Mental Status N/A Sepsis Action Taken by Nursing No Action Required 11/07/22 18:06 11/07/22 18:00 11/07/22 18:30 Temperature Temperature Source Pulse Rate 65 67 Pulse Rate [Apical] Pulse Rate from SpO2 Sensor 63 Pulse Rhythm [Apical] Pulse Strength [Apical] Respiratory Rate 21 19 Respiratory Effort / Characteristics Respiratory Depth Respiratory Pattern Blood Pressure 127/62 Blood Pressure [Right Arm] Blood Pressure Mean 83 Blood Pressure Mean [Right Arm] Blood Pressure Position Pulse Oximetry 100 Oxygen Delivery Method Room Air Room Air Sepsis Recent Fever Within 48 Hours Sepsis New/Unexplained Change in Mental Status Sepsis Action Taken by Nursing 11/07/22 19:45 Temperature Temperature Source Pulse Rate Pulse Rate [Apical] 63 Pulse Rate from SpO2 Sensor Pulse Rhythm [Apical] Regular Pulse Strength [Apical] Normal Respiratory Rate 20 Respiratory Effort / Characteristics Non-Labored Spontaneous Respiratory Depth Normal Respiratory Pattern Regular Blood Pressure Blood Pressure [Right Arm] 155/70 H Blood Pressure Mean Blood Pressure Mean [Right Arm] 98 Blood Pressure Position Pulse Oximetry 100 Oxygen Delivery Method Sepsis Recent Fever Within 48 Hours Sepsis New/Unexplained Change in Mental Status Sepsis Action Taken by Nursing Physical Exam HENT: Exam performed. -Head: Normocephalic and atraumatic. -Right Ear: External ear normal. No mastoid tenderness. -Left Ear: External ear normal. No mastoid tenderness. EYES: Conjunctivae and EOM are normal. Right eye exhibits no discharge. Left eye exhibits no discharge. No scleral icterus. NECK: Normal range of motion. Neck supple. No JVD present. CV: Normal rate, regular rhythm, normal heart sounds and intact distal pulses. There is no peripheral edema. Palpable radial pulses bue. PULM/CHEST: Effort normal and breath sounds normal. No respiratory distress. No stridor. She has no wheezes. She has no rales. ABD: The abdomen is soft. Bowel sounds are normal. There is no tenderness. MUSC/SKEL: Normal range of motion. There is no peripheral edema, tenderness or deformity. NEURO: Motor and sensation grossly intact. Course Course 172: The patient was evaluated in room C1. A complete history and physical exam was performed Cardiac monitoring: An order was placed for continuous cardiac monitoring. The monitor shows a rate of 70 with sinus rhythm 2012: Vital signs stable. Labs within normal limits with the exception of elevated ammonia level. Carboxyhemoglobin level VBG CBC within normal limits. Imaging within normal limits. Patient will be admitted to the [facility]ist team Dr. Tinoco notified. Patient treated with lactulose p.o. in the emergency department. Daughter at bedside reports that the patient has not been taking his lactulose as prescribed. Administered Medications Discontinued Medications Ioversol (Optiray 350 100ml) 83 ml IV ONCE ONE Stop: 11/07/22 19:04 Last Admin: 11/07/22 19:03 Dose: 83 ml Documented By: [facility] Medical Decision Making Home Medications Current Medication List: was personally reviewed by wi Laboratory Data Attestation: I reviewed the patient's lab results. 11/07/22 18:01 11/07/22 18:01 Lab Results 11/07/22 11/07/22 11/07/22 Range/Units 18:01 18:01 18:01 WBC 4.93 (4.8-10.8) K/ul RBC 3.44 L (4.63-6.08) M/uL Hgb 11.0 L (14.0-18.0) g/dl Hct 31.6 L (40.1-51.0) % MCV 91.9 (80.0-100.0) fL MCH 32.0 (25.0-34.0) pg MCHC 34.8 (32.0-36.0) g/dL RDW Std Deviation 46.5 H (36.4-46.3) fL RDW Coeff of Scott 13.9 (11.5-14.5) % Plt Count 186 (130-400) K/uL MPV 9.6 (9.4-12.4) fL Immature Gran % (Auto) 0.4 % Neut % (Auto) 52.4 % Lymph % (Auto) 29.8 % [place] % (Auto) 9.1 % Eos % (Auto) 7.3 % Baso % (Auto) 1.0 % Neut # (Auto) 2.58 (1.4-6.5) K/uL Lymph # (Auto) 1.47 (1.2-3.4) K/uL [place] # (Auto) 0.45 (0.24-0.82) K/uL Eos # (Auto) 0.36 (0-0.50) K/uL Baso # (Auto) 0.05 (0-0.2) K/uL Immature Gran # (Auto) 0.02 (0.00-0.02) K/uL PT (9.0-12.0) Seconds INR (0.9-1.1) APTT (21.0-31.0) Seconds PTT Ratio VBG pH (7.36-7.41) VBG pCO2 (38-50) mmHg VBG pO2 mmHg VBG HCO3 mmol/L VBG O2 Saturation % VBG Base Excess mEq/L Carboxyhemoglobin % THgb Sodium 142 (136-145) mmol/L Potassium 3.7 (3.5-5.1) mmol/L Chloride 112 H (98-107) mmol/L Carbon Dioxide 19 L (21-32) mmol/L Anion Gap 11 (3-11) BUN 20 (6-23) mg/dl Creatinine 1.42 H (0.6-1.4) mg/dl Est Cr Clr Drug Dosing 34.6 ml/min Est GFR ( Amer) 53.3 ml/min Est GFR (Non-Af Amer) 46.0 ml/min BUN/Creatinine Ratio 14.1 (10-20) Glucose 153 H (70-99(Fasting)) mg/dl POC Glucose (70-99) mg/dl Calcium 9.5 (8.5-10.1) mg/dl Magnesium 1.6 L (1.7-2.4) mg/dl Total Bilirubin 0.9 (0.2-1.0) mg/dl Direct Bilirubin 0.1 (0-0.2) mg/dl AST 16 (13-39) U/L ALT 9 (7-52) U/L Alkaline Phosphatase 76 (34-104) U/L Ammonia 156.0 H (18-72) umol/L Troponin I High Sens 7.7 (0-20) pg/ml Total Protein 6.4 (6.0-8.3) gm/dl Albumin 3.9 (3.4-5.0) gm/dl Lipase 37 (11-82) U/L SARS-CoV-2, RNA, NAAT (NEGATIVE) 11/07/22 11/07/22 11/07/22 Range/Units 18:01 18:01 18:01 WBC (4.8-10.8) K/ul RBC (4.63-6.08) M/uL Hgb (14.0-18.0) g/dl Hct (40.1-51.0) % MCV (80.0-100.0) fL MCH (25.0-34.0) pg MCHC (32.0-36.0) g/dL RDW Std Deviation (36.4-46.3) fL RDW Coeff of Scott (11.5-14.5) % Plt Count (130-400) K/uL MPV (9.4-12.4) fL Immature Gran % (Auto) % Neut % (Auto) % Lymph % (Auto) % [place] % (Auto) % Eos % (Auto) % Baso % (Auto) % Neut # (Auto) (1.4-6.5) K/uL Lymph # (Auto) (1.2-3.4) K/uL [place] # (Auto) (0.24-0.82) K/uL Eos # (Auto) (0-0.50) K/uL Baso # (Auto) (0-0.2) K/uL Immature Gran # (Auto) (0.00-0.02) K/uL PT 12.1 H (9.0-12.0) Seconds INR 1.1 (0.9-1.1) APTT 27.1 (21.0-31.0) Seconds PTT Ratio 1.0 VBG pH 7.43 H (7.36-7.41) VBG pCO2 31 L (38-50) mmHg VBG pO2 47 mmHg VBG HCO3 21 mmol/L VBG O2 Saturation 79.9 % VBG Base Excess -2.7 mEq/L Carboxyhemoglobin 1.5 % THgb Sodium (136-145) mmol/L Potassium (3.5-5.1) mmol/L Chloride (98-107) mmol/L Carbon Dioxide (21-32) mmol/L Anion Gap (3-11) BUN (6-23) mg/dl Creatinine (0.6-1.4) mg/dl Est Cr Clr Drug Dosing ml/min Est GFR ( Amer) ml/min Est GFR (Non-Af Amer) ml/min BUN/Creatinine Ratio (10-20) Glucose (70-99(Fasting)) mg/dl POC Glucose (70-99) mg/dl Calcium (8.5-10.1) mg/dl Magnesium (1.7-2.4) mg/dl Total Bilirubin (0.2-1.0) mg/dl Direct Bilirubin (0-0.2) mg/dl AST (13-39) U/L ALT (7-52) U/L Alkaline Phosphatase (34-104) U/L Ammonia (18-72) umol/L Troponin I High Sens (0-20) pg/ml Total Protein (6.0-8.3) gm/dl Albumin (3.4-5.0) gm/dl Lipase (11-82) U/L SARS-CoV-2, RNA, NAAT (NEGATIVE) 11/07/22 11/07/22 Range/Units 18:15 18:15 WBC (4.8-10.8) K/ul RBC (4.63-6.08) M/uL Hgb (14.0-18.0) g/dl Hct (40.1-51.0) % MCV (80.0-100.0) fL MCH (25.0-34.0) pg MCHC (32.0-36.0) g/dL RDW Std Deviation (36.4-46.3) fL RDW Coeff of Scott (11.5-14.5) % Plt Count (130-400) K/uL MPV (9.4-12.4) fL Immature Gran % (Auto) % Neut % (Auto) % Lymph % (Auto) % [place] % (Auto) % Eos % (Auto) % Baso % (Auto) % Neut # (Auto) (1.4-6.5) K/uL Lymph # (Auto) (1.2-3.4) K/uL [place] # (Auto) (0.24-0.82) K/uL Eos # (Auto) (0-0.50) K/uL Baso # (Auto) (0-0.2) K/uL Immature Gran # (Auto) (0.00-0.02) K/uL PT (9.0-12.0) Seconds INR (0.9-1.1) APTT (21.0-31.0) Seconds PTT Ratio VBG pH (7.36-7.41) VBG pCO2 (38-50) mmHg VBG pO2 mmHg VBG HCO3 mmol/L VBG O2 Saturation % VBG Base Excess mEq/L Carboxyhemoglobin % THgb Sodium (136-145) mmol/L Potassium (3.5-5.1) mmol/L Chloride (98-107) mmol/L Carbon Dioxide (21-32) mmol/L Anion Gap (3-11) BUN (6-23) mg/dl Creatinine (0.6-1.4) mg/dl Est Cr Clr Drug Dosing ml/min Est GFR ( Amer) ml/min Est GFR (Non-Af Amer) ml/min BUN/Creatinine Ratio (10-20) Glucose (70-99(Fasting)) mg/dl POC Glucose 146 H (70-99) mg/dl Calcium (8.5-10.1) mg/dl Magnesium (1.7-2.4) mg/dl Total Bilirubin (0.2-1.0) mg/dl Direct Bilirubin (0-0.2) mg/dl AST (13-39) U/L ALT (7-52) U/L Alkaline Phosphatase (34-104) U/L Ammonia (18-72) umol/L Troponin I High Sens (0-20) pg/ml Total Protein (6.0-8.3) gm/dl Albumin (3.4-5.0) gm/dl Lipase (11-82) U/L SARS-CoV-2, RNA, NAAT NEGATIVE (NEGATIVE) Imaging Data Radiologist's Impression: Abdomen/Pelvis CT 11/07/22 17:44 CT abd pelvis IV con only CLINICAL HISTORY: abd pain TECHNIQUE: Helical axial images of the abdomen and pelvis were obtained and displayed. Automated dose lowering techniques and/or adjustment according to patient size were utilized for this exam. This exam was performed with intravenous contrast. CT DOSE: 1099.32 mGy.cm COMPARISON: Comparison is made to CT abdomen pelvis 02/16/2020 FINDINGS: Lower chest: Incidental note is made of gynecomastia. Mild atelectasis versus scarring is seen in the lung bases. Liver: A TIPS shunt is noted. Atrophic appearance of the liver compatible with cirrhosis. Gallbladder and biliary tree: Patient is status post cholecystectomy. Pneumobilia is seen. Pancreas: Unremarkable, no focal lesions. Spleen: Unremarkable. Adrenals: Unremarkable. Kidneys and ureters: Renal cysts are seen. Bladder: Unremarkable. Reproductive organs: Unremarkable. Bowel: A hiatal hernia is seen. Diverticulosis is seen without evidence of diverticulitis. Lymph nodes Retroperitoneal: Multiple lymph nodes are seen measuring up to 11 mm in diameter. Pelvic: Unremarkable. Mesenteric: Unremarkable. Peritoneum: Normal. Vessels: Atherosclerotic calcifications are seen. Abdominal wall: Left periumbilical hernia containing a loop of bowel which does not appear dilated or obstructed. Bones: Degenerative changes in the visualized spine. IMPRESSION: 1. No acute abnormalities. Nonspecific prominence of retroperitoneal lymph nodes, unchanged from prior exam. 2. Cirrhosis and TIPS shunt. 3. The periumbilical hernia contains a loop of nondistended bowel. No evidence of bowel obstruction. ACT 112: Negative or not required by law. Electronically signed by: Caleb Forman M.D. 11/07/2022 7:49 PM Chest X-Ray 11/07/22 17:44 XR chest 1V portable CLINICAL HISTORY: ams TECHNIQUE: Single frontal radiograph of the chest was obtained. Comparison: Comparison is made to chest radiograph 02/23/2020 FINDINGS: No lines and tubes are seen. Calcified aortic knob is seen. Faint bibasilar airspace opacities are seen. No evidence of pleural effusion or pneumothorax. IMPRESSION: Faint bibasilar airspace opacities which may represent atelectasis, pneumonia, and/or aspiration. ACT 112: Negative or not required by law. Electronically signed by: Caleb Forman M.D. 11/07/2022 6:[address] 11/07/22 17:44 CT head/brain wo con CLINICAL HISTORY: ams Technique: Contiguous axial CT images of the head were acquired from the base of the skull to the vertex without intravenous contrast administration. Images were viewed in brain, subdural and bone windows. Automated dose lowering techniques and/or adjustment according to patient size were utilized for this exam. Comparison: Comparison is made to CT head 02/16/2020 Findings: Areas of decreased attenuation are present in the periventricular and subcortical white matter bilaterally consistent with small vessel ischemic disease. Generalized cerebral atrophy with commensurate enlargement of the ventricles, sulci, and cisterns is also present. There is no acute intracranial hemorrhage or evidence of acute territorial infarction. No shift of the midline structures, mass effect, or extra-axial abnormalities are shown. Atherosclerotic calcifications are present in the intracranial segments of the internal carotid arteries. Bilateral maxillary and ethmoid sinus disease noted. The orbits appear normal. There are no acute fractures of the calvaria or scalp swelling. Impression: No acute intracranial hemorrhage, no evidence of acute territorial infarction or other acute intracranial disease process. ACT 112: Negative or not required by law. Electronically signed by: Caleb Forman M.D. 11/07/2022 7:22 PM ECG Data Attestation: I personally reviewed and interpreted this ECG as follows: Additional Comments: EKG 1 at 1739 shows sinus rhythm with rate of 69. FL 208 QRS [address] elevation or ST depression. QTC does appear to be new compared to previous EK Gs. EKG #2 at 1759: Sinus rhythm with rate 65. FL 216 QRS [address] elevation or ST depression. MDM Narrative Vital signs stable. Labs within normal limits with the exception of elevated ammonia level. Carboxyhemoglobin level VBG CBC within normal limits. Imaging within normal limits. Patient will be admitted to the [facility] hospitalist team Dr. Tinoco notified. Patient treated with lactulose p.o. in the emergency department. Daughter at bedside reports that the patient has not been taking his lactulose as prescribed. Impression & Plan Encephalopathy, hepatic Discharge Plan Visit Data Chief Complaint: Weakness Stated Complaint: WEAKNESS, OFF BALANCE, HEADACHE, ABDOMINAL PAIN ED Provider: Azeem Colón Discharge Problem: Encephalopathy, hepatic Patient Disposition: Admitted As Inpatient Forms Stand Alone Forms: [facility] Prescriptions Prescriptions: No Action lactulose 20 gram/30 mL solution 45 ml PO TID artificial tears(hypromellose) 0.3 % gel 1 drp ophthalmic (eye) QID PRN azelastine 137 mcg (0.1 %) aerosol,spray 2 spray intranasal BID Rx Instructions: administer into each nostril multivitamin Tablet 1 tab PO DAILY diclofenac sodium [Arthritis Pain (diclofenac)] 1 % gel 4 g topical QID PRN Rx Instructions: apply to single knee, ankle, foot; for foot includes sole/toes/top of foot ipratropium bromide 21 mcg (0.03 %) spray,non-aerosol 2 - 4 spray intranasal QID Rx Instructions: administer into each nostril ferrous sulfate [FeroSul] 325 mg (65 mg iron) tablet 325 mg PO DAILY magnesium citrate 100 mg tablet 400 mg PO DAILY midodrine 5 mg tablet 5 mg PO TID Rx Instructions: do not give last dose of day after 6PM or within 4 hrs of bedtime ondansetron HCl 4 mg tablet 4 mg PO Q8H PRN pilocarpine HCl 5 mg tablet 5 mg PO TID polyethylene glycol 3350 [Miralax] 17 gram/dose powder 17 g PO DAILY Restasis MultiDose 0.05 % drops 1 drp ophthalmic (eye) Q12H [place] Saline 0.65 % aerosol,spray 2 spray intranasal QID PRN Systane Gel 0.3 % gel 1 drp ophthalmic (eye) QID PRN cholecalciferol (vitamin D3) 25 mcg (1,000 unit) capsule 50 mcg PO DAILY acetaminophen [Tylenol] 325 mg capsule 325 mg PO Q6H PRN (Reason: Pain) (DME) lancets Misc MISCELLANEOUS Rx Instructions: Use as directed up to 4 times/day omeprazole 20 mg Capsule,Delayed Release(Dr/Ec) 20 mg PO QAM Xifaxan 550 mg tablet 550 mg PO BID citalopram 10 mg Tablet 10 mg PO HS ciprofloxacin HCl 500 mg Tablet 500 mg PO QAM tamsulosin 0.4 mg Capsule 0.4 mg PO QPM levothyroxine 50 mcg Tablet 50 mcg PO DAILYBB furosemide 20 mg Tablet 20 mg PO QAM loratadine 10 mg Tablet 10 mg PO DAILY PRN (Reason: Allergy Symptoms) spironolactone 50 mg Tablet 50 mg PO QAM metformin 500 mg tablet 500 mg PO BIDM sertraline 25 mg tablet 25 mg PO HS finasteride 5 mg tablet 5 mg PO QAM Centrum Silver Tablet 1 tab PO DAILY Referrals Referrals: Renard Das MD [Primary Care Provider] -
[2022-11-07] MEDS ORDERED: OPTIRAY 350 100ml IV ONE (19:03)
--- NOTE | 2022-11-07 19:24 | CT Scan Report ---
CT head/brain wo con CLINICAL HISTORY: ams Technique: Contiguous axial CT images of the head were acquired from the base of the skull to the jyoti keshawn without intravenous contrast administration. Images were viewed in brain, subdural and [facility]. Automated dose lowering techniques and/or adjustment according to patient size were utilized for this exam. Comparison: Comparison is made to CT head 02/16/2020 Findings: Areas of decreased attenuation are present in the periventricular and subcortical white matter bilate rally consistent with small vessel ischemic disease. Generalized cerebral atrophy with commensurate e nlargement of the ventricles, sulci, and cisterns is also present. There is no acute intracranial hem orrhage or evidence of acute territorial infarction. No shift of the midline structures, mass effect, or extra-axial abnormalities are shown. Atherosclerotic calcifications are present in the intracran ial segments of the internal carotid arteries. Bilateral maxillary and ethmoid sinus disease noted. The orbits appear normal. There are no acute fr actures of the calvaria or scalp swelling. Impression: No acute intracranial hemorrhage, no evidence of acute territorial infarction or other acute intracra nial disease process. ACT 112: Negative or not required by law. Electronically signed by: Caleb Forman M.D. 11/07/2022 7:22 PM
[2022-11-07 19:25] LABS: Base Excess VBG -2.7 mEq/L; HCO3 VBG 21 mmol/L; Oxygen Saturation VBG 79.9 %; PCO2 VBG 31 mmHg (38-50); PO2 VBG 47 mmHg; pH VBG 7.43 (7.36-7.41)
--- NOTE | 2022-11-07 19:51 | CT Scan Report ---
CT abd pelvis IV con only CLINICAL HISTORY: abd pain TECHNIQUE: Helical axial images of the abdomen and pelvis were obtained and displayed. Automated dose lowering techniques and/or adjustment according to patient size were utilized for this exam. This e xam was performed with intravenous contrast. CT DOSE: 1099.32 mGy.cm COMPARISON: Comparison is made to CT abdomen pelvis 02/16/2020 FINDINGS: Lower chest: Incidental note is made of gynecomastia. Mild atelectasis versus scarring is seen in th e lung bases. Liver: A TIPS shunt is noted. Atrophic appearance of the liver compatible with cirrhosis. Gallbladder and biliary tree: Patient is status post cholecystectomy. Pneumobilia is seen. Pancreas: Unremarkable, no focal lesions. Spleen: Unremarkable. Adrenals: Unremarkable. Kidneys and ureters: Renal cysts are seen. Bladder: Unremarkable. Reproductive organs: Unremarkable. Bowel: A hiatal hernia is seen. Diverticulosis is seen without evidence of diverticulitis. Lymph nodes Retroperitoneal: Multiple lymph nodes are seen measuring up to 11 mm in diameter. Pelvic: Unremarkable. Mesenteric: Unremarkable. Peritoneum: Normal. Vessels: Atherosclerotic calcifications are seen. Abdominal wall: Left periumbilical hernia containing a loop of bowel which does not appear dilated or obstructed. Bones: Degenerative changes in the visualized spine. IMPRESSION: 1. No acute abnormalities. Nonspecific prominence of retroperitoneal lymph nodes, unchanged from arun or exam. 2. Cirrhosis and TIPS shunt. 3. The periumbilical hernia contains a loop of nondistended bowel. No evidence of bowel obstruction. ACT 112: Negative or not required by law. Electronically signed by: Caleb Forman M.D. 11/07/2022 7:49 PM
[2022-11-07] MEDS ORDERED: LACTULOSE SYRUP 30 GM/45 ML UDP PO STA (19:55)
[2022-11-07] MEDS ORDERED: MAGNESIUM SULFATE / D5W 1 GM/100 ML BAG IV ONE (20:32)
[2022-11-07] MEDS ORDERED: LACTATED RINGER'S 1,000 ML IV ONE (20:35)
--- NOTE | 2022-11-07 20:36 | History & Physical Report ---
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 past tobacco abuse Medical telemetry Facilitate lactulose Continue Rifaximin GI consult Re: Hepatic encephalopathy Baseline UA, monitor creatinine response to IVF Appropriate to hold diuretics for now until creatinine back to baseline Bolus insulin, ISS BG goal 1 10-1 40, carb count coverage, update hemoglobin A1c DVT prophylaxis. Heparin subcu Full code as per daughter, Ms. Isamar Singh. She requests updates from providers through [id number]. Text document was generated using [email or web address] voice recognition software. It may contain grammatical or spelling errors. Kindly contact undersigned for clarification of any documentation item in question. History of Present Illness Chief Complaint: Confusion as per records Primary Care Provider: Renard Das MD History obtained from patient, family, and records. Limited history from patient secondary to hearing impairment and confusion. 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 Patient seen at [facility] GI office on follow-up visit last May 2022. Bothersome bloating symptoms from lactulose. Lactulose Rx held. Patient to continue Xifaxan. This week, patient noted to be more confused than usual. Patient with weakness and abdominal pain. No overt bleeding symptoms. Patient brought to the ER by family for evaluation. Lactulose given for hyperammonemia. MEDICAL HISTORY: As above. SURGERIES: He has had eye surgery, ulnar nerve surgery, posterior tongue biopsy, laparoscopic cholecystectomy, right cervical lymphadenectomy/modified radical neck dissection, laryngoscopy, ventral hernia repair FAMILY HISTORY: There is a family history of gallbladder disease. PERSONAL AND SOCIAL HISTORY: Past tobacco use. No chronic intake of alcohol beverages. Retired from . Allergies Allergy/AdvReac Type Severity Reaction Status Date / Time No Known Allergies Allergy Verified 11/07/22 20:53 Home Medications Medication Instructions Recorded Confirmed Type rifaximin 550 mg tablet (Xifaxan) 550 mg PO BID 06/12/19 11/07/22 History lancets 09/22/19 11/07/22 History omeprazole 20 mg capsule,delayed 20 mg PO QAM 09/22/19 11/07/22 History release ciprofloxacin HCl 500 mg tablet 500 mg PO QAM 10/05/21 11/07/22 History furosemide 20 mg tablet 20 mg PO QAM 10/05/21 11/07/22 History levothyroxine 50 mcg tablet 50 mcg PO DAILYBB 10/05/21 11/07/22 History loratadine 10 mg tablet 10 mg PO DAILY PRN Allergy Symptoms 10/05/21 11/07/22 History spironolactone 50 mg tablet 50 mg PO QAM 10/05/21 11/07/22 History tamsulosin 0.4 mg capsule 0.4 mg PO QPM 10/05/21 11/07/22 History acetaminophen 325 mg capsule 325 mg PO Q6H PRN Pain 12/26/21 11/07/22 History (Tylenol) artificial tears(hypromellose) 0.3 1 drp ophthalmic (eye) QID PRN Dry 12/26/21 11/07/22 History % eye gel Eyes azelastine 137 mcg (0.1 %) nasal 2 spray intranasal BID 12/26/21 11/07/22 History spray aerosol cholecalciferol (vitamin D3) 25 50 mcg PO DAILY 12/26/21 11/07/22 History mcg (1,000 unit) capsule cyclosporine 0.05 % eye drops 1 drp ophthalmic (eye) Q12H PRN 12/26/21 11/07/22 History (Restasis MultiDose) Dry Eyes diclofenac sodium 1 % topical gel 4 g topical QID PRN Pain 12/26/21 11/07/22 History (Arthritis Pain (diclofenac)) ferrous sulfate 325 mg (65 mg 325 mg PO DAILY 12/26/21 11/07/22 History iron) tablet (FeroSul) ipratropium bromide 21 mcg (0.03 2 - 4 spray intranasal QID PRN 12/26/21 11/07/22 History %) nasal spray runny nose and post nasal drip lactulose 20 gram/30 mL oral 45 ml PO TID 12/26/21 11/07/22 History solution magnesium citrate 100 mg tablet 400 mg PO DAILY 12/26/21 11/07/22 History midodrine 5 mg tablet 5 mg PO TID 12/26/21 11/07/22 History ondansetron HCl 4 mg tablet 4 mg PO Q8H PRN Nausea 12/26/21 11/07/22 History polyethylene glycol 3350 17 17 g PO DAILY PRN Constipation 12/26/21 11/07/22 History gram/dose oral powder (Miralax) sodium chloride 0.65 % nasal spray 2 spray intranasal QID PRN nasal 12/26/21 11/07/22 History aerosol ([place] Saline) dryness or congestion finasteride 5 mg tablet 5 mg PO QAM 11/07/22 11/07/22 History metformin 500 mg tablet 500 mg PO BIDM 11/07/22 11/07/22 History tsznmrzyskng-jajpqzir-ghztws tablet 1 tab PO DAILY 11/07/22 11/07/22 History sertraline 25 mg tablet 25 mg PO HS 11/07/22 11/07/22 History Past Med/Surg History Medical History Anemia Ascites 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 Elevated LFTs suspected to be from DILI vs AIH. LFTs normalized now so immunosuppression use was deferred. 4L fluid drained 12/15. Abdomen noticeably distended at PAT appt on 12/31/18. BPH (benign prostatic hyperplasia) Cirrhosis Depression Diabetes mellitus, type II PER , METFORMIN RECENTLY D/C. GERD (gastroesophageal reflux disease) History of abdominal paracentesis 06/11/19, 02/08/19, 11/2018 History of throat cancer sx + radiation HLD (hyperlipidemia) HTN (hypertension) No current meds Paroxysmal A-fib FOLLOWS W/ [facility] Poor historian PVCs (premature ventricular contractions) Sleep apnea NO DEVICE USED Spontaneous bacterial peritonitis Jun 2018. Pt was admitted for a fib RVR and ascites, fluid drawn from abdomen showed SBP. Treated with ABX and discharged. Following now with Meaghan BORJA ([facility]/Lizzette Mitchell) and Dr. Monreal (Hepatology). Umbilical hernia Upper GI bleed Surgical History History of adenoidectomy 01/11/19 History of cataract surgery RT/LEFT History of colonoscopy 01/30/16 History of ERCP 05/12/18 - stent removed History of esophagogastroduodenoscopy (EGD) 11/07/2010, 06/23/18 - with endoscopic US History of eye surgery 2008 - TEAR DUCT OPENED UP History of hernia repair 04/02/18 History of intraocular lens implant 2008 - Bilateral History of laryngoscopy 01/11/19 - with biopsies + right modified radical cervical lymphadenectomy History of liver biopsy 05/2018 History of tonsillectomy 01/11/19 History of tooth extraction 01/11/19 S/P cholecystectomy 04/02/2018. Yan 2, grade 1 view. 8.0 ETT. S/P T[place] (transjugular [place]atic [place]osystemic [place] [facility] History Mother , Passed age 49 from Leukemia No problems noted. Sister , Passed age 6 months of pneumonia No problems noted. Brother , Passed in late 50's of [place] No problems noted. Sister , Passed in 60's of diabetic complications No problems noted. Sister No problems noted. Daughter Breast cancer, Onset Age: 40 Stage III - Currently doing well Brother No problems noted. Brother No problems noted. 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 Feels Safe at Home: Yes Safety Concerns: Feels Safe At This Time Childhood Exposure to Second-Hand Smoke: Yes caffeine: Yes (3 cups of coffee/week with tea inbetween ) during the past year weight has: decreased > 10 lbs Dental Care, Regularly: No Assistive Devices: Cane and Hearing Aid - Bilateral Review of Systems Review of Systems: Could not be reliably obtained secondary to confusion/marked hearing impairment Physical Exam Physical Exam: GENERAL: Comfortable, disoriented, hard of hearing, no respiratory distress SKIN: Pallor, warm HEENT: Pale palpebral conjunctivae, no ptosis, dry buccal mucosa NECK : Supple, no tenderness CHEST : Decreased breath sounds, no tenderness HEART : RRR, no obvious murmurs ABDOMEN: Some distention, nontender RECTAL : Intact sphincter, dark brown stool (FOBT negative) EXTREMITIES : No LE swelling/tenderness, no other conspicuous deformities noted NEUROLOGIC : Disoriented , no facial asymmetry, marked hearing impairment, gait and stance not assessed Results & Data Results & Data ([facility]) Vital Signs (Past 12 Hours) Vital Signs Temp Pulse Pulse Resp BP BP Pulse Ox 11/07/22 19:45 63 20 155/70 H 100 11/07/22 18:30 67 19 127/62 100 11/07/22 18:00 65 21 11/07/22 18:06 11/07/22 18:03 11/07/22 18:03 67 18 122/64 99 11/07/22 17:20 36.6 C 66 18 137/69 99 O2 Del Method 11/07/22 19:45 11/07/22 18:30 Room Air 11/07/22 18:00 11/07/22 18:06 Room Air 11/07/22 18:03 Room Air 11/07/22 18:03 Room Air 11/07/22 17:20 Room Air Laboratory Results Laboratory Results WBC 4.93 K/ul (4.8-10.8) 11/07/22 18:01 RBC 3.44 M/uL (4.63-6.08) L 11/07/22 18:01 Hgb 11.0 g/dl (14.0-18.0) L 11/07/22 18:01 Hct 31.6 % (40.1-51.0) L 11/07/22 18: MCV 91.9 fL (80.0-100.0) 11/07/22 18: MCH 32.0 pg (25.0-34.0) 11/07/22 18: MCHC 34.8 g/dL (32.0-36.0) 11/07/22 18: RDW Std Deviation 46.5 fL (36.4-46.3) H 11/07/22 18: RDW Coeff of Scott 13.9 % (11.5-14.5) 11/07/22 18: Plt Count 186 K/uL (130-400) 11/07/22 18: MPV 9.6 fL (9.4-12.4) 11/07/22 18: Immature Gran % (Auto) 0.4 % 11/07/22 18:01 Neut % (Auto) 52.4 % 11/07/22 18:01 Lymph % (Auto) 29.8 % 11/07/22 18: [place] % (Auto) 9.1 % 11/07/22 18:01 Eos % (Auto) 7.3 % 11/07/22 18:01 Baso % (Auto) 1.0 % 11/07/22 18: Neut # (Auto) 2.58 K/uL (1.4-6.5) 11/07/22 18:01 Lymph # (Auto) 1.47 K/uL (1.2-3.4) 11/07/22 18:01 [place] # (Auto) 0.45 K/uL (0.24-0.82) 11/07/22 18:01 Eos # (Auto) 0.36 K/uL (0-0.50) 11/07/22 18:01 Baso # (Auto) 0.05 K/uL (0-0.2) 11/07/22 18: Immature Gran # (Auto) 0.02 K/uL (0.00-0.02) 11/07/22 18:01 PT 12.1 Seconds (9.0-12.0) H 11/07/22 18: INR 1.1 (0.9-1.1) 11/07/22 18:01 APTT 27.1 Seconds (21.0-31.0) 11/07/22 18: PTT Ratio 1.0 11/07/22 18:01 VBG pH 7.43 (7.36-7.41) H 11/07/22 18:01 VBG pCO2 31 mmHg (38-50) L 11/07/22 18: VBG pO2 47 mmHg 11/07/22 18: VBG HCO3 21 mmol/L 11/07/22 18: VBG O2 Saturation 79.9 % 11/07/22 18: VBG Base Excess -2.7 mEq/L 11/07/22 18: Carboxyhemoglobin 1.5 % THgb 11/07/22 18: Sodium 142 mmol/L (136-145) 11/07/22 18: Potassium 3.7 mmol/L (3.5-5.1) 11/07/22 18: Chloride 112 mmol/L (98-107) H 11/07/22 18: Carbon Dioxide 19 mmol/L (21-32) L 11/07/22 18: Anion Gap 11 (3-11) 11/07/22 18: BUN 20 mg/dl (6-23) 11/07/22 18: Creatinine 1.42 mg/dl (0.6-1.4) H 11/07/22 18: Est Cr Clr Drug Dosing 34.6 ml/min 11/07/22 18:01 Est GFR ( Amer) 53.3 ml/min 11/07/22 18: Est GFR (Non-Af Amer) 46.0 ml/min 11/07/22 18: BUN/Creatinine Ratio 14.1 (10-20) 11/07/22 18:01 Glucose 153 mg/dl (70-99(Fasting)) H 11/07/22 18:01 POC Glucose 146 mg/dl (70-99) H 11/07/22 18:15 Calcium 9.5 mg/dl (8.5-10.1) 11/07/22 18: Magnesium 1.6 mg/dl (1.7-2.4) L 11/07/22 18:01 Total Bilirubin 0.9 mg/dl (0.2-1.0) 11/07/22 18: Direct Bilirubin 0.1 mg/dl (0-0.2) 11/07/22 18:01 AST 16 U/L (13-39) 11/07/22 18:01 ALT 9 U/L (7-52) 11/07/22 18:01 Alkaline Phosphatase 76 U/L (34-104) 11/07/22 18:01 Ammonia 156.0 umol/L (18-72) H 11/07/22 18:01 Troponin I High Sens 7.7 pg/ml (0-20) 11/07/22 18:01 Total Protein 6.4 gm/dl (6.0-8.3) 11/07/22 18:01 Albumin 3.9 gm/dl (3.4-5.0) 11/07/22 18:01 Lipase 37 U/L (11-82) 11/07/22 18:01 SARS-CoV-2, RNA, NAAT NEGATIVE (NEGATIVE) 11/07/22 18:15 Impressions Abdomen/Pelvis CT 11/07/22 17:44 CT abd pelvis IV con only CLINICAL HISTORY: abd pain TECHNIQUE: Helical axial images of the abdomen and pelvis were obtained and displayed. Automated dose lowering techniques and/or adjustment according to patient size were utilized for this exam. This exam was performed with intravenous contrast. CT DOSE: 1099.32 mGy.cm COMPARISON: Comparison is made to CT abdomen pelvis 02/16/2020 FINDINGS: Lower chest: Incidental note is made of gynecomastia. Mild atelectasis versus scarring is seen in the lung bases. Liver: A TIPS shunt is noted. Atrophic appearance of the liver compatible with cirrhosis. Gallbladder and biliary tree: Patient is status post cholecystectomy. Pneumobilia is seen. Pancreas: Unremarkable, no focal lesions. Spleen: Unremarkable. Adrenals: Unremarkable. Kidneys and ureters: Renal cysts are seen. Bladder: Unremarkable. Reproductive organs: Unremarkable. Bowel: A hiatal hernia is seen. Diverticulosis is seen without evidence of diverticulitis. Lymph nodes Retroperitoneal: Multiple lymph nodes are seen measuring up to 11 mm in diameter. Pelvic: Unremarkable. Mesenteric: Unremarkable. Peritoneum: Normal. Vessels: Atherosclerotic calcifications are seen. Abdominal wall: Left periumbilical hernia containing a loop of bowel which does not appear dilated or obstructed. Bones: Degenerative changes in the visualized spine. IMPRESSION: 1. No acute abnormalities. Nonspecific prominence of retroperitoneal lymph nodes, unchanged from prior exam. 2. Cirrhosis and TIPS shunt. 3. The periumbilical hernia contains a loop of nondistended bowel. No evidence of bowel obstruction. ACT 112: Negative or not required by law. Electronically signed by: Caleb Forman M.D. 11/07/2022 7:49 PM Chest X-Ray 11/07/22 17:44 XR chest 1V portable CLINICAL HISTORY: ams TECHNIQUE: Single frontal radiograph of the chest was obtained. Comparison: Comparison is made to chest radiograph 02/23/2020 FINDINGS: No lines and tubes are seen. Calcified aortic knob is seen. Faint bibasilar airspace opacities are seen. No evidence of pleural effusion or pneumothorax. IMPRESSION: Faint bibasilar airspace opacities which may represent atelectasis, pneumonia, and/or aspiration. ACT 112: Negative or not required by law. Electronically signed by: Caleb Forman M.D. 11/07/2022 6:[address] 11/07/22 17:44 CT head/brain wo con CLINICAL HISTORY: ams Technique: Contiguous axial CT images of the head were acquired from the base of the skull to the vertex without intravenous contrast administration. Images were viewed in brain, subdural and bone windows. Automated dose lowering techniques and/or adjustment according to patient size were utilized for this exam. Comparison: Comparison is made to CT head 02/16/2020 Findings: Areas of decreased attenuation are present in the periventricular and subcortical white matter bilaterally consistent with small vessel ischemic disease. Generalized cerebral atrophy with commensurate enlargement of the ventricles, sulci, and cisterns is also present. There is no acute intracranial hemorrhage or evidence of acute territorial infarction. No shift of the midline structures, mass effect, or extra-axial abnormalities are shown. Atherosclerotic calcifications are present in the intracranial segments of the internal carotid arteries. Bilateral maxillary and ethmoid sinus disease noted. The orbits appear normal. There are no acute fractures of the calvaria or scalp swelling. Impression: No acute intracranial hemorrhage, no evidence of acute territorial infarction or other acute intracranial disease process. ACT 112: Negative or not required by law. Electronically signed by: Caleb Forman M.D. 11/07/2022 7:22 PM Diagnostic Findings EKG as per my interpretation :Rate 70, LAD, LAFB, T wave flattening in inferior and septal leads
[2022-11-07 22:41] LABS: Appearance Urine Clear (Clear); Bilirubin Urine Negative (Negative); Blood Urine Negative (Negative); Color Urine Yellow; Glucose Urine UA Negative (Negative); Ketones Urine Negative (Negative); Leukocyte Esterase Urine Negative (Negative); Nitrite Urine Negative (Negative); Protein Urine Negative (Negative); Specific Gravity Urine 1.033 (1.000-1.030); Urobilinogen Urine Negative (Negative); pH Urine 6.5 (4.5-7.5)
[2022-11-07] MEDS ORDERED: POLYETHYLENE (MIRALAX) 17 GM PACK PO PRN (23:59)
[2022-11-07] MEDS ORDERED: PROMETHAZINE HCL 6.25 MG in SODIUM CHLORIDE 0.9% 50 ML IV PRN (23:59)
[2022-11-07] MEDS ORDERED: GLUCOSE 40% GEL 15 GM TUBE PO PRN (23:59)
[2022-11-07] MEDS ORDERED: CARBOHYDRATES FOR HYPOGLYCEMIA PO PRN (23:59)
[2022-11-07] MEDS ORDERED: DEXTROSE 50% 50 ML SYRINGE IV PRN (23:59)
[2022-11-07] MEDS ORDERED: GLUCOSE 10 TAB/TUBE PO PRN (23:59)
[2022-11-07] MEDS ORDERED: LACTULOSE SYRUP 30 GM/45 ML UDP PO ONE (23:59)
[2022-11-07] MEDS ORDERED: GLUCAGON FOR INJ 1 MG VIAL SQ PRN (23:59)
[2022-11-08] MEDS ORDERED: ACETAMINOPHEN 325 MG TAB PO PRN (00:09)
[2022-11-08] MEDS ORDERED: ARTIFICIAL TEARS OP PRN (00:28)
[2022-11-08 01:09] LABS: Thyroid Stimulating Hormone 5.648 uIu/ml (0.300-4.500)
[2022-11-08 01:41] LABS: T4 Free Thyroxine 0.76 ng/dl (0.61-1.60)
[2022-11-08] MEDS: INSULIN ASPART PER UNIT SC SCH ×5 (01:42→20:11)
[2022-11-08] MEDS: rifAXIMin 550 MG TABLET PO SCH ×3 (01:51→22:01)
[2022-11-08] MEDS: HEPARIN SOD 5,000 UNIT/0.5 ML VIAL SQ SCH ×4 (01:51→22:01)
[2022-11-08 05:03] LABS: Basophils # (auto) 0.06 K/uL (0-0.2); Eosinophils # (auto) 0.47 K/uL (0-0.50); Eosinophils % (auto) 7.7 %; Hematocrit (blood only) 32.4 % (40.1-51.0); Hemoglobin 11.5 g/dl (14.0-18.0); Immature Granulocytes # (auto) 0.02 K/uL (0.00-0.02); Immature Granulocytes % (auto) 0.3 %; Lymphocytes # (auto) 1.75 K/uL (1.2-3.4); Lymphocytes % (auto) 28.7 %; Mean Corpuscular Hgb Conc 35.5 g/dL (32.0-36.0); Mean Corpuscular Volume 90.3 fL (80.0-100.0); Monocytes # (auto) 0.52 K/uL (0.24-0.82); Monocytes % (auto) 8.5 %; Neutrophils # (auto) 3.28 K/uL (1.4-6.5); Neutrophils % (auto) 53.8 %; Platelet Count 179 K/uL (130-400); RDW Standard Deviation 46.6 fL (36.4-46.3); Red Blood Count 3.59 M/uL (4.63-6.08)
[2022-11-08 05:39] LABS: Albumin Globulin Ratio 1.3 (0.9-2); Albumin Level 3.6 gm/dl (3.4-5.0); BUN Creatinine Ratio 14.4 (10-20); Calcium 9.8 mg/dl (8.5-10.1); Creatinine Clr Calc Pharmacy 45.4 ml/min; Est GFR (African American) 71.8 ml/min; Est GFR (Non-African American) 61.9 ml/min; Globulin 2.7 gm/dl (2.5-4.0); Potassium 3.6 mmol/L (3.5-5.1); Total Protein 6.3 gm/dl (6.0-8.3)
[2022-11-08] MEDS: LEVOTHYROXINE SODIUM 50 MCG TABLET PO SCH (06:11)
[2022-11-08] MEDS: RESTASIS~ORDER AWAITING ACTION SCH ×3 (07:51→22:03)
[2022-11-08 08:30] LABS: Estimated Average Glucose 126 mg/dl
--- NOTE | 2022-11-08 09:40 | Gastrointestinal Consultation ---
Date of Consultation November 08, 2022 Assessment & Plan (1) Encephalopathy, hepatic: Plan 82 year old male with history of cirrhosis status post TIPS, HE on xifaxin (lactulose held due to bloating), SBP on Cipro prophylaxis, PAF, HTN, dyslipidemia, T2DM, CKD admitted w/ report of altered mental status reported by family x 1 week, ammonia elevated in the 140's Suspected hepatic encephalopathy secondary to medication change (lactulose held in May in bloating) Would continue Xifaxan 550 BID Would continue lactulose titrated to 3-4 BMs daily If bloating returns would titrate medication as tolerated Complete work up/infectious work up - UA, urine culture - Blood cultures - Chest XR - Head CT - No plan for paracentesis given s/p TIPS and no ascites Would continue home medications Continued OP care with established GI team Thank you for allowing us to participate in the care of this patient. Please call with any acute changes, questions or concerns. Please see addendum below with additional recommendation from my supervising physician. Supervising Physician Co-Signing Physician Notes Evaluated the patient. He presented with mild encephalopathy which is now res olved. Of note the patient has a history of TIPS procedure and was previously on both lactulose in addition to rifaximin as an outpatient. The lactulose was stopped due to problems with bloating as an outpatient, after giving a dose of lactulose today the patient's encephalopathy has resolved completly No obvious distress no scleral icterus no abdominal tenderness Impression Patient presents with mild encephalopathy after discontinuation of lactulose as an outpatient. Would recommend resumption of lactulose once daily upon discharge. Please call with any questions or concerns GI to sign off.. 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 He was maintained on lactulose and xifaxan for HE. however, it was noted that in May, lactulose was held due to report of severe bloating. This AM he awoke to name, was able to tell me his name and and where he resides. He has no concerns this AM. MELD; 8 Ammonia: [address]: No acute intracranial hemorrhage, no evidence of acute territorial infarction or other acute intracranial disease process. Chest XR: Faint bibasilar airspace opacities which may represent atelectasis, pneumonia, and/or aspiration. CTAP: No acute abnormalities. Nonspecific prominence of retroperitoneal lymph nodes, unchanged from prior exam. Cirrhosis and TIPS shunt. The periumbilical hernia contains a loop of nondistended bowel. No evidence of bowel obstruction. Colonoscopy 2019: One 5 mm polyp in the descending colon, removed with a cold snare. Resected and retrieved. Clip (MR conditional) was placed. - Diverticulosis in the sigmoid colon. - The colon was otherwise normal to the terminal ileum with retroflexed views of the ascending colon and rectum. EGD 2020: Normal esophagus. - Portal hypertensive gastropathy. - Normal examined duodenum. - No specimens collected Allergies Allergy/AdvReac Type Severity Reaction Status Date / Time No Known Allergies Allergy Verified 11/07/22 20:53 Home Medications Medication Instructions Recorded Confirmed Type rifaximin 550 mg tablet (Xifaxan) 550 mg PO BID 06/12/19 11/07/22 History lancets 09/22/19 11/07/22 History omeprazole 20 mg capsule,delayed 20 mg PO QAM 09/22/19 11/07/22 History release ciprofloxacin HCl 500 mg tablet 500 mg PO QAM 10/05/21 11/07/22 History furosemide 20 mg tablet 20 mg PO QAM 10/05/21 11/07/22 History levothyroxine 50 mcg tablet 50 mcg PO DAILYBB 10/05/21 11/07/22 History loratadine 10 mg tablet 10 mg PO DAILY PRN Allergy Symptoms 10/05/21 11/07/22 History spironolactone 50 mg tablet 50 mg PO QAM 10/05/21 11/07/22 History tamsulosin 0.4 mg capsule 0.4 mg PO QPM 10/05/21 11/07/22 History acetaminophen 325 mg capsule 325 mg PO Q6H PRN Pain 12/26/21 11/07/22 History (Tylenol) artificial tears(hypromellose) 0.3 1 drp ophthalmic (eye) QID PRN Dry 12/26/21 11/07/22 History % eye gel Eyes azelastine 137 mcg (0.1 %) nasal 2 spray intranasal BID 12/26/21 11/07/22 Hist ory spray aerosol cholecalciferol (vitamin D3) 25 50 mcg PO DAILY 12/26/21 11/07/22 History mcg (1,000 unit) capsule cyclosporine 0.05 % eye drops 1 drp ophthalmic (eye) Q12H PRN 12/26/21 11/07/22 History (Restasis MultiDose) Dry Eyes diclofenac sodium 1 % topical gel 4 g topical QID PRN Pain 12/26/21 11/07/22 History (Arthritis Pain (diclofenac)) ferrous sulfate 325 mg (65 mg 325 mg PO DAILY 12/26/21 11/07/22 History iron) tablet (FeroSul) ipratropium bromide 21 mcg (0.03 2 - 4 spray intranasal QID PRN 12/26/21 11/07/22 History %) nasal spray runny nose and post nasal drip lactulose 20 gram/30 mL oral 45 ml PO TID 12/26/21 11/07/22 History solution magnesium citrate 100 mg tablet 400 mg PO DAILY 12/26/21 11/07/22 History midodrine 5 mg tablet 5 mg PO TID 12/26/21 11/07/22 History ondansetron HCl 4 mg tablet 4 mg PO Q8H PRN Nausea 12/26/21 11/07/22 History polyethylene glycol 3350 17 17 g PO DAILY PRN Constipation 12/26/21 11/07/22 H istory gram/dose oral powder (Miralax) sodium chloride 0.65 % nasal spray 2 spray intranasal QID PRN nasal 12/26/21 11/07/22 History aerosol ([place] Saline) dryness or congestion finasteride 5 mg tablet 5 mg PO QAM 11/07/22 11/07/22 History metformin 500 mg tablet 500 mg PO BIDM 11/07/22 11/07/22 History xgxnvmuznhgv-exfdkmsz-ekguso tablet 1 tab PO DAILY 11/07/22 11/07/22 History sertraline 25 mg tablet 25 mg PO HS 11/07/22 11/07/22 History Patient History Medical History Anemia Ascites 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 Elevated LFTs suspected to be from DILI vs AIH. LFTs normalized now so immunosuppression use was deferred. 4L fluid drained 12/15. Abdomen noticeably distended at [facility] appt on 12/31/18. BPH (benign prostatic hyperplasia) Cirrhosis Depression Diabetes mellitus, type II PER , METFORMIN RECENTLY D/C. GERD (gastroesophageal reflux disease) History of abdominal paracentesis 06/11/19, 02/08/19, 11/2018 History of throat cancer sx + radiation HLD (hyperlipidemia) HTN (hypertension) No current meds Paroxysmal A-fib FOLLOWS W/ [facility] Poor historian PVCs (premature ventricular contractions) Sleep apnea NO DEVICE USED Spontaneous bacterial peritonitis Jun 2018. Pt was admitted for a fib RVR and ascites, fluid drawn from abdomen showed SBP. Treated with ABX and discharged. Following now [facility] (T[facility]/Lizzette Mitchell) and Dr. Monreal (Hepatology). Umbilical hernia Upper GI bleed Surgical History History of adenoidectomy 01/11/19 History of cataract surgery RT/LEFT History of colonoscopy 01/30/16 History of ERCP 05/12/18 - stent removed History of esophagogastroduodenoscopy (EGD) 11/07/2010, 06/23/18 - with endoscopic US History of eye surgery 2008 - TEAR DUCT OPENED UP History of hernia repair 04/02/18 History of intraocular lens implant 2008 - Bilateral History of laryngoscopy 01/11/19 - with biopsies + right modified radical cervical lymphadenectomy History of liver biopsy 05/2018 History of tonsillectomy 01/11/19 History of tooth extraction 01/11/19 S/P cholecystectomy 04/02/2018. Yan 2, grade 1 view. 8.0 ETT. S/P TIPS (transjugular intrahepatic portosystemic shunt) [place]16[place] [facility] [place] [facility] [place] History Mother , Passed age 49 from Leukemia No problems noted. Sister , Passed age 6 months of pneumonia No problems noted. Brother , Passed in late 50's of [place] No problems noted. Sister , Passed in 60's of diabetic complications No problems noted. Sister No problems noted. Daughter Breast cancer, Onset Age: 40 Stage III - Currently doing well Brother No problems noted. Brother No problems noted. Other Family history of diabetes mellitus Social History Smoking Status: Never smoker Tobacco Type: Cigarettes and Smokeless Tobacco (Dip or Chew) packs per day: 0.5; Second Hand Exposure: No; Do You Dip or Chew Tobacco: No; Hx Alcohol Use: No Hx Substance Use: No Preferred Language: Croatian Communication Ability: Impaired Communication Ability Comment: CREEK Visual Impairment: No Limitations Hearing Ability: Use of Hearing Aid Coal Washer Tender Required: No Beliefs That Will Affect Care: None marital status: Current Living Situation: Spouse current occupational status: retired current occupation: Retired [employer] Feels Safe at Home: Yes Safety Concerns: Feels Safe At This Time Childhood Exposure to Second-Hand Smoke: Yes caffeine: Yes (3 cups of coffee/week with tea inbetween ) during the past year weight has: decreased > 10 lbs Dental Care, Regularly: No Assistive Devices: Cane and Hearing Aid - Bilateral Review of Systems Review of Systems: All systems reviewed & are unremarkable except as noted in HPI & below Physical Exam Constitutional: WD/WN, vitals as above Respiratory: normal respiratory effort, lungs clear to auscultation Cardiovascular: RRR, no murmur, no edema Gastrointestinal (Abdomen): normal bowel sounds, soft, nontender, no hepatosplenomegaly Skin: no rashes, warm and dry Results & Data ([facility]) Vital Signs (Past 12 Hours) Vital Signs Pulse Pulse Resp BP BP Pulse Ox O2 Del Method 11/08/22 07:06 53 L 20 142/61 H 96 Room Air 11/08/22 07:06 52 L 20 142/61 H 96 Room Air 11/08/22 03:00 57 L 14 142/66 H 96 11/08/22 01:31 74 18 139/70 95 Room Air 11/08/22 01:42 65 20 139/70 11/07/22 23:00 58 L 18 118/55 L 96 Room Air Laboratory Results 11/08/22 11/08/22 11/08/22 Range/Units 07:10 04:26 04:26 WBC 6.10 (4.8-10.8) K/ul RBC 3.59 L (4.63-6.08) M/uL Hgb 11.5 L (14.0-18.0) g/dl Hct 32.4 L (40.1-51.0) % MCV 90.3 (80.0-100.0) fL MCH 32.0 (25.0-34.0) pg MCHC 35.5 (32.0-36.0) g/dL RDW Std Deviation 46.6 H (36.4-46.3) fL RDW Coeff of Scott 14.0 (11.5-14.5) % Plt Count 179 (130-400) K/uL MPV 10.0 (9.4-12.4) fL Immature Gran % (Auto) 0.3 % Neut % (Auto) 53.8 % Lymph % (Auto) 28.7 % [place] % (Auto) 8.5 % Eos % (Auto) 7.7 % Baso % (Auto) 1.0 % Neut # (Auto) 3.28 (1.4-6.5) K/uL Lymph # (Auto) 1.75 (1.2-3.4) K/uL [place] # (Auto) 0.52 (0.24-0.82) K/uL Eos # (Auto) 0.47 (0-0.50) K/uL Baso # (Auto) 0.06 (0-0.2) K/uL Immature Gran # (Auto) 0.02 (0.00-0.02) K/uL PT (9.0-12.0) Seconds INR (0.9-1.1) APTT (21.0-31.0) Seconds PTT Ratio VBG pH (7.36-7.41) VBG pCO2 (38-50) mmHg VBG pO2 mmHg VBG HCO3 mmol/L VBG O2 Saturation % VBG Base Excess mEq/L Carboxyhemoglobin % THgb Sodium 143 (136-145) mmol/L Potassium 3.6 (3.5-5.1) mmol/L Chloride 113 H (98-107) mmol/L Carbon Dioxide 21 (21-32) mmol/L Anion Gap 9 (3-11) BUN 16 (6-23) mg/dl Creatinine 1.11 D (0.6-1.4) mg/dl Est Cr Clr Drug Dosing 45.4 ml/min Est GFR ( Amer) 71.8 ml/min Est GFR (Non-Af Amer) 61.9 ml/min BUN/Creatinine Ratio 14.4 (10-20) Glucose 110 H (70-99(Fasting)) mg/dl POC Glucose 95 (70-99) mg/dl Estimat Average Glucose mg/dl Hemoglobin A1c (4.5-5.6) % Calcium 9.8 (8.5-10.1) mg/dl Magnesium (1.7-2.4) mg/dl Total Bilirubin 1.0 (0.2-1.0) mg/dl Direct Bilirubin (0-0.2) mg/dl AST 16 (13-39) U/L ALT 9 (7-52) U/L Alkaline Phosphatase 74 (34-104) U/L Ammonia (18-72) umol/L Troponin I High Sens (0-20) pg/ml Total Protein 6.3 (6.0-8.3) gm/dl Albumin 3.6 (3.4-5.0) gm/dl Globulin 2.7 (2.5-4.0) gm/dl Albumin/Globulin Ratio 1.3 (0.9-2) Lipase (11-82) U/L TSH (0.300-4.500) uIu/ml Free T4 (0.61-1.60) ng/dl Urine Color Urine Appearance (Clear) Urine pH (4.5-7.5) Ur Specific [place] (1.000-1.030) Urine Protein (Negative) Urine Glucose (UA) (Negative) Urine Ketones (Negative) Urine Blood (Negative) Urine Nitrite (Negative) Urine Bilirubin (Negative) Urine Urobilinogen (Negative) Ur Leukocyte Esterase (Negative) SARS-CoV-2, RNA, NAAT (NEGATIVE) 11/08/22 11/07/22 11/07/22 Range/Units 01:41 22:24 18:15 WBC (4.8-10.8) K/ul RBC (4.63-6.08) M/uL Hgb (14.0-18.0) g/dl Hct (40.1-51.0) % MCV (80.0-100.0) fL MCH (25.0-34.0) pg MCHC (32.0-36.0) g/dL RDW Std Deviation (36.4-46.3) fL RDW Coeff of Scott (11.5-14.5) % Plt Count (130-400) K/uL MPV (9.4-12.4) fL Immature Gran % (Auto) % Neut % (Auto) % Lymph % (Auto) % [place] % (Auto) % Eos % (Auto) % Baso % (Auto) % Neut # (Auto) (1.4-6.5) K/uL Lymph # (Auto) (1.2-3.4) K/uL [place] # (Auto) (0.24-0.82) K/uL Eos # (Auto) (0-0.50) K/uL Baso # (Auto) (0-0.2) K/uL Immature Gran # (Auto) (0.00-0.02) K/uL PT (9.0-12.0) Seconds INR (0.9-1.1) APTT (21.0-31.0) Seconds PTT Ratio VBG pH (7.36-7.41) VBG pCO2 (38-50) mmHg VBG pO2 mmHg VBG HCO3 mmol/L VBG O2 Saturation % VBG Base Excess mEq/L Carboxyhemoglobin % THgb Sodium (136-145) mmol/L Potassium (3.5-5.1) mmol/L Chloride (98-107) mmol/L Carbon Dioxide (21-32) mmol/L Anion Gap (3-11) BUN (6-23) mg/dl Creatinine (0.6-1.4) mg/dl Est Cr Clr Drug Dosing ml/min Est GFR ( Amer) ml/min Est GFR (Non-Af Amer) ml/min BUN/Creatinine Ratio (10-20) Glucose (70-99(Fasting)) mg/dl POC Glucose 121 H 146 H (70-99) mg/dl Estimat Average Glucose mg/dl Hemoglobin A1c (4.5-5.6) % Calcium (8.5-10.1) mg/dl Magnesium (1.7-2.4) mg/dl Total Bilirubin (0.2-1.0) mg/dl Direct Bilirubin (0-0.2) mg/dl AST (13-39) U/L ALT (7-52) U/L Alkaline Phosphatase (34-104) U/L Ammonia (18-72) umol/L Troponin I High Sens (0-20) pg/ml Total Protein (6.0-8.3) gm/dl Albumin (3.4-5.0) gm/dl Globulin (2.5-4.0) gm/dl Albumin/Globulin Ratio (0.9-2) Lipase (11-82) U/L TSH (0.300-4.500) uIu/ml Free T4 (0.61-1.60) ng/dl Urine Color Yellow Urine Appearance Clear (Clear) Urine pH 6.5 (4.5-7.5) Ur Specific [place] 1.033 H (1.000-1.030) Urine Protein Negative (Negative) Urine Glucose (UA) Negative (Negative) Urine Ketones Negative (Negative) Urine Blood Negative (Negative) Urine Nitrite Negative (Negative) Urine Bilirubin Negative (Negative) Urine Urobilinogen Negative (Negative) Ur Leukocyte Esterase Negative (Negative) SARS-CoV-2, RNA, NAAT (NEGATIVE) 11/07/22 11/07/22 11/07/22 Range/Units 18:15 18:01 18:01 WBC (4.8-10.8) K/ul RBC (4.63-6.08) M/uL Hgb (14.0-18.0) g/dl Hct (40.1-51.0) % MCV (80.0-100.0) fL MCH (25.0-34.0) pg MCHC (32.0-36.0) g/dL RDW Std Deviation (36.4-46.3) fL RDW Coeff of Scott (11.5-14.5) % Plt Count (130-400) K/uL MPV (9.4-12.4) fL Immature Gran % (Auto) % Neut % (Auto) % Lymph % (Auto) % [place] % (Auto) % Eos % (Auto) % Baso % (Auto) % Neut # (Auto) (1.4-6.5) K/uL Lymph # (Auto) (1.2-3.4) K/uL [place] # (Auto) (0.24-0.82) K/uL Eos # (Auto) (0-0.50) K/uL Baso # (Auto) (0-0.2) K/uL Immature Gran # (Auto) (0.00-0.02) K/uL PT (9.0-12.0) Seconds INR (0.9-1.1) APTT (21.0-31.0) Seconds PTT Ratio VBG pH (7.36-7.41) VBG pCO2 (38-50) mmHg VBG pO2 mmHg VBG HCO3 mmol/L VBG O2 Saturation % VBG Base Excess mEq/L Carboxyhemoglobin % THgb Sodium (136-145) mmol/L Potassium (3.5-5.1) mmol/L Chloride (98-107) mmol/L Carbon Dioxide (21-32) mmol/L Anion Gap (3-11) BUN (6-23) mg/dl Creatinine (0.6-1.4) mg/dl Est Cr Clr Drug Dosing ml/min Est GFR ( Amer) ml/min Est GFR (Non-Af Amer) ml/min BUN/Creatinine Ratio (10-20) Glucose (70-99(Fasting)) mg/dl POC Glucose (70-99) mg/dl Estimat Average Glucose 126 mg/dl Hemoglobin A1c 6.0 H (4.5-5.6) % Calcium (8.5-10.1) mg/dl Magnesium (1.7-2.4) mg/dl Total Bilirubin (0.2-1.0) mg/dl Direct Bilirubin (0-0.2) mg/dl AST (13-39) U/L ALT (7-52) U/L Alkaline Phosphatase (34-104) U/L Ammonia (18-72) umol/L Troponin I High Sens (0-20) pg/ml Total Protein (6.0-8.3) gm/dl Albumin (3.4-5.0) gm/dl Globulin (2.5-4.0) gm/dl Albumin/Globulin Ratio (0.9-2) Lipase (11-82) U/L TSH 5.648 H (0.300-4.500) uIu/ml Free T4 0.76 (0.61-1.60) ng/dl Urine Color Urine Appearance (Clear) Urine pH (4.5-7.5) Ur Specific [place] (1.000-1.030) Urine Protein (Negative) Urine Glucose (UA) (Negative) Urine Ketones (Negative) Urine Blood (Negative) Urine Nitrite (Negative) Urine Bilirubin (Negative) Urine Urobilinogen (Negative) Ur Leukocyte Esterase (Negative) SARS-CoV-2, RNA, NAAT NEGATIVE (NEGATIVE) 11/07/22 11/07/22 11/07/22 Range/Units 18:01 18:01 18:01 WBC (4.8-10.8) K/ul RBC (4.63-6.08) M/uL Hgb (14.0-18.0) g/dl Hct (40.1-51.0) % MCV (80.0-100.0) fL MCH (25.0-34.0) pg MCHC (32.0-36.0) g/dL RDW Std Deviation (36.4-46.3) fL RDW Coeff of Scott (11.5-14.5) % Plt Count (130-400) K/uL MPV (9.4-12.4) fL Immature Gran % (Auto) % Neut % (Auto) % Lymph % (Auto) % [place] % (Auto) % Eos % (Auto) % Baso % (Auto) % Neut # (Auto) (1.4-6.5) K/uL Lymph # (Auto) (1.2-3.4) K/uL [place] # (Auto) (0.24-0.82) K/uL Eos # (Auto) (0-0.50) K/uL Baso # (Auto) (0-0.2) K/uL Immature Gran # (Auto) (0.00-0.02) K/uL PT 12.1 H (9.0-12.0) Seconds INR 1.1 (0.9-1.1) APTT 27.1 (21.0-31.0) Seconds PTT Ratio 1.0 VBG pH 7.43 H (7.36-7.41) VBG pCO2 31 L (38-50) mmHg VBG pO2 47 mmHg VBG HCO3 21 mmol/L VBG O2 Saturation 79.9 % VBG Base Excess -2.7 mEq/L Carboxyhemoglobin 1.5 % THgb Sodium (136-145) mmol/L Potassium (3.5-5.1) mmol/L Chloride (98-107) mmol/L Carbon Dioxide (21-32) mmol/L Anion Gap (3-11) BUN (6-23) mg/dl Creatinine (0.6-1.4) mg/dl Est Cr Clr Drug Dosing ml/min Est GFR ( Amer) ml/min Est GFR (Non-Af Amer) ml/min BUN/Creatinine Ratio (10-20) Glucose (70-99(Fasting)) mg/dl POC Glucose (70-99) mg/dl Estimat Average Glucose mg/dl Hemoglobin A1c (4.5-5.6) % Calcium (8.5-10.1) mg/dl Magnesium (1.7-2.4) mg/dl Total Bilirubin (0.2-1.0) mg/dl Direct Bilirubin (0-0.2) mg/dl AST (13-39) U/L ALT (7-52) U/L Alkaline Phosphatase (34-104) U/L Ammonia (18-72) umol/L Troponin I High Sens (0-20) pg/ml Total Protein (6.0-8.3) gm/dl Albumin (3.4-5.0) gm/dl Globulin (2.5-4.0) gm/dl Albumin/Globulin Ratio (0.9-2) Lipase (11-82) U/L TSH (0.300-4.500) uIu/ml Free T4 (0.61-1.60) ng/dl Urine Color Urine Appearance (Clear) Urine pH (4.5-7.5) Ur Specific [place] (1.000-1.030) Urine Protein (Negative) Urine Glucose (UA) (Negative) Urine Ketones (Negative) Urine Blood (Negative) Urine Nitrite (Negative) Urine Bilirubin (Negative) Urine Urobilinogen (Negative) Ur Leukocyte Esterase (Negative) SARS-CoV-2, RNA, NAAT (NEGATIVE) 11/07/22 11/07/22 11/07/22 Range/Units 18:01 18:01 18:01 WBC 4.93 (4.8-10.8) K/ul RBC 3.44 L (4.63-6.08) M/uL Hgb 11.0 L (14.0-18.0) g/dl Hct 31.6 L (40.1-51.0) % MCV 91.9 (80.0-100.0) fL MCH 32.0 (25.0-34.0) pg MCHC 34.8 (32.0-36.0) g/dL RDW Std Deviation 46.5 H (36.4-46.3) fL RDW Coeff of Scott 13.9 (11.5-14.5) % Plt Count 186 (130-400) K/uL MPV 9.6 (9.4-12.4) fL Immature Gran % (Auto) 0.4 % Neut % (Auto) 52.4 % Lymph % (Auto) 29.8 % [place] % (Auto) 9.1 % Eos % (Auto) 7.3 % Baso % (Auto) 1.0 % Neut # (Auto) 2.58 (1.4-6.5) K/uL Lymph # (Auto) 1.47 (1.2-3.4) K/uL [place] # (Auto) 0.45 (0.24-0.82) K/uL Eos # (Auto) 0.36 (0-0.50) K/uL Baso # (Auto) 0.05 (0-0.2) K/uL Immature Gran # (Auto) 0.02 (0.00-0.02) K/uL PT (9.0-12.0) Seconds INR (0.9-1.1) APTT (21.0-31.0) Seconds PTT Ratio VBG pH (7.36-7.41) VBG pCO2 (38-50) mmHg VBG pO2 mmHg VBG HCO3 mmol/L VBG O2 Saturation % VBG Base Excess mEq/L Carboxyhemoglobin % THgb Sodium 142 (136-145) mmol/L Potassium 3.7 (3.5-5.1) mmol/L Chloride 112 H (98-107) mmol/L Carbon Dioxide 19 L (21-32) mmol/L Anion Gap 11 (3-11) BUN 20 (6-23) mg/dl Creatinine 1.42 H (0.6-1.4) mg/dl Est Cr Clr Drug Dosing 34.6 ml/min Est GFR ( Amer) 53.3 ml/min Est GFR (Non-Af Amer) 46.0 ml/min BUN/Creatinine Ratio 14.1 (10-20) Glucose 153 H (70-99(Fasting)) mg/dl POC Glucose (70-99) mg/dl Estimat Average Glucose mg/dl Hemoglobin A1c (4.5-5.6) % Calcium 9.5 (8.5-10.1) mg/dl Magnesium 1.6 L (1.7-2.4) mg/dl Total Bilirubin 0.9 (0.2-1.0) mg/dl Direct Bilirubin 0.1 (0-0.2) mg/dl AST 16 (13-39) U/L ALT 9 (7-52) U/L Alkaline Phosphatase 76 (34-104) U/L Ammonia 156.0 H (18-72) umol/L Troponin I High Sens 7.7 (0-20) pg/ml Total Protein 6.4 (6.0-8.3) gm/dl Albumin 3.9 (3.4-5.0) gm/dl Globulin (2.5-4.0) gm/dl Albumin/Globulin Ratio (0.9-2) Lipase 37 (11-82) U/L TSH (0.300-4.500) uIu/ml Free T4 (0.61-1.60) ng/dl Urine Color Urine Appearance (Clear) Urine pH (4.5-7.5) Ur Specific [place] (1.000-1.030) Urine Protein (Negative) Urine Glucose (UA) (Negative) Urine Ketones (Negative) Urine Blood (Negative) Urine Nitrite (Negative) Urine Bilirubin (Negative) Urine Urobilinogen (Negative) Ur Leukocyte Esterase (Negative) SARS-CoV-2, RNA, NAAT (NEGATIVE)
[2022-11-08] MEDS: MIDODRINE HCL 2.5 MG TAB PO SCH ×3 (11:11→22:01)
[2022-11-08] MEDS: CEROVITE ADV FORMULA TAB PO SCH (11:11)
[2022-11-08] MEDS: PANTOprazole 40 MG TAB PO SCH (11:11)
[2022-11-08] MEDS: FERROUS SULFATE 325 MG TAB PO SCH (11:14)
[2022-11-08] MEDS: FINASTERIDE 5 MG TAB PO SCH (11:14)
[2022-11-08] MEDS: CIPROFLOXACIN 250 MG TAB PO SCH (11:14)
[2022-11-08] MEDS: LACTULOSE SYRUP 30 GM/45 ML UDP PO SCH ×3 (11:14→22:02)
[2022-11-08] MEDS: AZELASTINE HCL 0.1% NASAL 200 SPRAYS/27,400 MCG BTL SCH ×2 (11:14→22:03)
[2022-11-08] MEDS: LANTUS PER UNIT CHARGE SQ SCH (11:44)
--- NOTE | 2022-11-08 13:45 | Electrocardiogram Report ---
Test Reason : Blood Pressure : / mmHG Vent. Rate : 069 BPM Atrial Rate : 069 BPM P-R Int : 208 ms QRS Dur : 084 ms QT Int : 478 ms P-R-T Axes : 065 -14 026 degrees QTc Int : 512 ms Poor data quality, interpretation may be adversely affected Sinus rhythm Prolonged QT Abnormal ECG When compared with ECG of 19-FEB-2020 06:43, Nonspecific T wave abnormality no longer evident in Lateral leads QT has lengthened Confirmed by Luis Humphrey ([id number]) on 11/08/2022 1:45:02 PM Referred By: REFERRED SELF Confirmed By:Luis Humphrey
--- NOTE | 2022-11-08 13:47 | Electrocardiogram Report ---
Test Reason : Blood Pressure : / mmHG Vent. Rate : 065 BPM Atrial Rate : 065 BPM P-R Int : 216 ms QRS Dur : 082 ms QT Int : 478 ms P-R-T Axes : 068 -09 034 degrees QTc Int : 497 ms Sinus rhythm with 1st degree A-V block Prolonged QT Abnormal ECG When compared with ECG of 07-NOV-2022 17:39, (unconfirmed) No significant change Confirmed by Luis Humphrey ([id number]) on 11/08/2022 1:47:06 PM Referred By: REFERRED SELF Confirmed By:Luis Humphrey
--- NOTE | 2022-11-08 15:23 | Hospitalist Progress Note ---
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 He is being managed for the following: Hepatic encephalopathy 2/2 hyperammonemia 2/2 liver cirrhosis Toxic metabolic encephalopathy History of SBP on Cipro prophylaxis Patient brought in due to worsening confusion. History of liver cirrhosis status post TIPS. Secondary to lactulose noncompliance due to bloating symptoms Admitting ammonia level elevated at 156, admitting labs including WBC WNL. Admitting UA negative for infection. Admitting imagings: CT abdomen pelvis: No acute findings, cirrhosis and TIPS shunt noted. CXR: Faint bibasilar airspace opacities suggestive of atelectasis. CT head: No acute findings. GI evaluated, continue with rifaximin 550 Mg twice daily, lactulose daily. Target goal of bowel movement 3 to 4/day. Patient more alert and awake at bedside exam in the morning per RN then he presented with. We will continue to monitor, PT/OT, CM to assist with DC planning. Acute renal failure on CKD: Secondary to acute illness, resolved. Will resume diuretic once p.o. intake improves. 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 DVT prophylaxis: Heparin subcu Full code Patient's daughter, Ms. Isamar Singh. [id number]. Admission and Anticipated Discharge Date Admission Date: November 07, 2022 Subjective Patient seen and examined at bedside as a follow-up of hepatic encephalopathy. Patient was sitting up in bed, on room air, NAD, very hard of hearing, RN by bedside, patient more awake and alert now per RN, oriented x1, denies pain or discomfort, ROS was not able due to him being very hard of hearing. He was not wearing his hearing aid. Patient was not able to cooperate fully in the exam because he could not follow the commands because of being very [place]. Physical Exam Physical Exam: GENERAL: Alert and Awake. NAD, on RA. [place]. HEENT: No pallor, no icterus. Pupils equal, round and reactive to light. Oral mucosa moist. NECK: No JVD, no neck masses. HEART: S1 and S2 heard. Regular rate and rhythm. No murmur, no gallop. RESPIRATORY SYSTEM: Normal AP diameter. No accessory muscle use. No wheezing, no crackles. ABDOMEN: Soft, bowel sounds present, nontender, no distention. CENTRAL NERVOUS SYSTEM: No facial droop. Speech is clear. Obeys simple commands. Moves extremities. EXTREMITIES: No edema, no erythema seen. Results & Data Results & Data ([facility]) Vital Signs (Past 12 Hours) Vital Signs Temp Pulse Pulse Resp BP BP Pulse Ox 11/08/22 11:00 36.5 C 51 L 16 112/59 L 97 11/08/22 09:54 50 L 20 115/64 96 11/08/22 09:54 50 L 20 115/64 96 11/08/22 07:06 53 L 20 142/61 H 96 11/08/22 07:06 52 L 20 142/61 H 96 O2 Del Method 11/08/22 11:00 Room Air 11/08/22 09:54 Room Air 11/08/22 09:54 Room Air 11/08/22 07:06 Room Air 11/08/22 07:06 Room Air
[2022-11-08] MEDS ORDERED: SERTRALINE HCL 50 MG TABLET PO SCH (21:00)
[2022-11-08] MEDS ORDERED: TAMSULOSIN HCL 0.4 MG CAP PO SCH (21:00)
[2022-11-09] MEDS: HEPARIN SOD 5,000 UNIT/0.5 ML VIAL SQ SCH ×2 (05:55→14:41)
[2022-11-09] MEDS: LEVOTHYROXINE SODIUM 50 MCG TABLET PO SCH (05:55)
[2022-11-09 06:54] LABS: Hemoglobin 11.6 g/dl (14.0-18.0); Mean Corpuscular Hemoglobin 31.9 pg (25.0-34.0); Mean Corpuscular Hgb Conc 34.1 g/dL (32.0-36.0); Mean Corpuscular Volume 93.4 fL (80.0-100.0); Mean Platelet Volume 9.6 fL (9.4-12.4); Platelet Count 170 K/uL (130-400); RDW Standard Deviation 46.9 fL (36.4-46.3); Red Blood Count 3.64 M/uL (4.63-6.08)
[2022-11-09 07:23] LABS: BUN Creatinine Ratio 11.7 (10-20); Creatinine Clr Calc Pharmacy 45.4 ml/min; Est GFR (African American) 71.8 ml/min; Est GFR (Non-African American) 61.9 ml/min; Magnesium 1.6 mg/dl (1.7-2.4); Phosphorus 3.9 mg/dl (2.5-4.9); Potassium 3.5 mmol/L (3.5-5.1)
[2022-11-09] MEDS: rifAXIMin 550 MG TABLET PO SCH (09:15)
[2022-11-09] MEDS: CEROVITE ADV FORMULA TAB PO SCH (09:15)
[2022-11-09] MEDS: CIPROFLOXACIN 250 MG TAB PO SCH (09:15)
[2022-11-09] MEDS: MIDODRINE HCL 2.5 MG TAB PO SCH ×2 (09:15→14:41)
[2022-11-09] MEDS: LACTULOSE SYRUP 30 GM/45 ML UDP PO SCH ×2 (09:15→14:40)
[2022-11-09] MEDS: RESTASIS~ORDER AWAITING ACTION SCH (09:15)
[2022-11-09] MEDS: AZELASTINE HCL 0.1% NASAL 200 SPRAYS/27,400 MCG BTL SCH (09:16)
[2022-11-09] MEDS: FINASTERIDE 5 MG TAB PO SCH (09:16)
[2022-11-09] MEDS: PANTOprazole 40 MG TAB PO SCH (09:16)
[2022-11-09] MEDS: FERROUS SULFATE 325 MG TAB PO SCH (09:16)
[2022-11-09] MEDS: LANTUS PER UNIT CHARGE SQ SCH (09:17)
[2022-11-09] MEDS: INSULIN ASPART PER UNIT SC SCH ×2 (09:17→12:45)
[2022-11-09] MEDS: MAGNESIUM SULFATE / D5W 1 GM/100 ML BAG IV SCH ×2 (09:20→11:17)
[2022-11-09 11:23] VITALS: BP 100/53; TEMP 97.5; O2SAT 96
--- NOTE | 2022-11-09 15:24 | Discharge Summary ---
Date of Service November 09, 2022 Admission HPI Per Admitting Provider History obtained from patient, family, and records. Limited history from patient secondary to hearing impairment and confusion. Medical history is significant for cirrhosis status post TIPS, hx SBP on Cipro prophylaxis, PAF/episodic bradycardia, hypertension, hyperlipidemia, squamous cell carcinoma neck (unknown primary) status post surgery/radiation, DM2 diet- controlled, CRI (baseline creatinine 1.3 ), chronic anemia (baseline hemoglobin of 12 ), BPH, past tobacco abuse, Last [facility] confinement February 2020 for hepatic encephalopathy, bowel obstruction secondary to incarcerated ventral hernia status post surgery, ARDS secondary to aspiration pneumonia status post intubation. Patient seen at [facility] on follow-up visit last May 2022. Bothersome bloating symptoms from lactulose. Lactulose Rx held. Patient to continue Xifaxan. This week, patient noted to be more confused than usual. Patient with weakness and abdominal pain. No overt bleeding symptoms. Patient brought to the ER by family for evaluation. Lactulose given for hyperammonemia. MEDICAL HISTORY: As above. SURGERIES: He has had eye surgery, ulnar nerve surgery, posterior tongue biopsy, laparoscopic cholecystectomy, right cervical lymphadenectomy/modified radical neck dissection, laryngoscopy, ventral hernia repair FAMILY HISTORY: There is a family history of gallbladder disease. PERSONAL AND SOCIAL HISTORY: Past tobacco use. No chronic intake of alcohol beverages. Retired from . Admission Exam Per Admitting Provider GENERAL: Comfortable, disoriented, hard of hearing, no respiratory distress SKIN: Pallor, warm HEENT: Pale palpebral conjunctivae, no ptosis, dry buccal mucosa NECK : Supple, no tenderness CHEST : Decreased breath sounds, no tenderness HEART : RRR, no obvious murmurs ABDOMEN: Some distention, nontender RECTAL : Intact sphincter, dark brown stool (FOBT negative) EXTREMITIES : No LE swelling/tenderness, no other conspicuous deformities noted NEUROLOGIC : Disoriented , no facial asymmetry, marked hearing impairment, gait and stance not assessed Principal Diagnosis Hepatic encephalopathy 2/2 hyperammonemia 2/2 liver cirrhosis Toxic metabolic encephalopathy History of SBP on Cipro prophylaxis Acute renal failure on CKD Discharge Exam GENERAL: Alert and Awake. NAD, on RA. [place]. HEENT: No pallor, no icterus. Pupils equal, round and reactive to light. Oral mucosa moist. NECK: No JVD, no neck masses. HEART: S1 and S2 heard. Regular rate and rhythm. No murmur, no gallop. RESPIRATORY SYSTEM: Normal AP diameter. No accessory muscle use. No wheezing, no crackles. ABDOMEN: Soft, bowel sounds present, nontender, no distention. CENTRAL NERVOUS SYSTEM: No facial droop. Speech is clear. Obeys simple commands. Moves extremities. EXTREMITIES: No edema, no erythema seen. 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 He was managed for the following: Hepatic encephalopathy 2/2 hyperammonemia 2/2 liver cirrhosis Toxic metabolic encephalopathy History of SBP on Cipro prophylaxis Patient brought in due to worsening confusion. History of liver cirrhosis status post TIPS. Secondary to lactulose noncompliance due to bloating symptoms Admitting ammonia level elevated at 156, admitting labs including WBC WNL. Admitting UA negative for infection. Admitting imagings: CT abdomen pelvis: No acute findings, cirrhosis and TIPS shunt noted. CXR: Faint bibasilar airspace opacities suggestive of atelectasis. CT head: No acute findings. GI evaluated, continue with rifaximin 550 Mg twice daily, lactulose w/ goal of 3-4 bm/day. Target goal of bowel movement 3 to 4/day. Patient alert and awake and back to baseline. PT/OT evaled, being discharged to home w/ HH, pt's dtr communicated over the phone prior to DC. Acute renal failure on CKD: Secondary to acute illness, resolved. Will resume diuretic once p.o. intake improves. 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 DVT prophylaxis: Heparin subcu Full code Patient's daughter, Ms. Isamar Singh. [id number]/[id number]. Patient being discharged to home with home health with following instruction at the point of discharge: Follow-up with your primary care physician within a week time and likely you will need labs CBC/CMP/magnesium/phosphorus. Follow-up with your GI doctor as an outpatient as prior. Take your lactulose up to 3 times a day with a goal of 3-4 bowel movements per day. If not able to tolerate, can decrease the frequency of lactulose to once a day. Take your medications as prescribed. Home Health Attestation I certify that this patient is under my care and that I, or a physicians assistant professor of religion working with me, had a face to-face encounter that meets the home health pfgx-po-owty encounter requirements with this patient. The encounter with the patient was in whole, or in part, for the following medical condition, which is the primary reason for home health care (list medical condition): encephalopathy I certify that, based on my findings, the following services are medically necessary home health services: My clinical findings support the need for the above services because: OT Assess ADL Status and Restore Function w ADLs PT Assessment for Endurance / Balance / Strength PT Eval for Safety and Mobility PT Eval for Safety, Gait Training, Assistive Devices PT Gait and Balance Training, Strengthening and Safety Skilled Nsg Assessment Further, I certify that my clinical findings support that this patient is homebound (i.e. absences from home require considerable and taxing effort and are for medical reasons or taoist services or infrequently or of short duration when for other reasons) because: Transportation Assistance/Unable to Leave Home Unassisted Certification for Home Health Services: Based on the above findings, I certify that this patient is confined to the home and needs intermittent long term care, physical therapy and/or speech therapy or continues to need occupational therapy. The patient is under my care, and I have initiated the establishment of the plan of care. This patient will be followed by a physician who will periodically review the plan of care. Total Time Total Time Spent Total Time Spent (In Minutes): 50 Discharge Plan Discharge Items Patient Disposition: Home - Home Health Services Reason For Visit: ENCEPHALOPATHY Discharge Diagnosis: Hepatic encephalopathy 2/2 hyperammonemia 2/2 liver cirrhosis Toxic metabolic encephalopathy History of SBP on Cipro prophylaxis Acute renal failure on CKD Activity: Resume your previous activity Non-emergency contact: Primary Care Provider Call non-emergency contact if: you have any medication questions, your symptoms worsen and your temperature is above 101 Follow-up/Referrals: Renard Das MD [Primary Care Provider] - Diet: Carb Consistent or DM2 and Heart Healthy Addtl Attending Provider Instructions: Follow-up with your primary care physician within a week time and likely you will need labs CBC/CMP/magnesium/phosphorus. Follow-up with your GI doctor as an outpatient as prior. Take your lactulose up to 3 times a day with a goal of 3-4 bowel movements per day. If not able to tolerate, can decrease the frequency of lactulose to once a day. Take your medications as prescribed. Pending Studies at Discharge: Yes (Admitting blood culture final results.) Stand-Alone Forms: My [facility] [employer], Smoking Cessation Medications and DC Order Prescriptions: Continued artificial tears(hypromellose) 0.3 % gel 1 drp ophthalmic (eye) QID PRN (Reason: Dry Eyes) azelastine 137 mcg (0.1 %) aerosol,spray 2 spray intranasal BID Rx Instructions: administer into each nostril diclofenac sodium [Arthritis Pain (diclofenac)] 1 % gel 4 g topical QID PRN (Reason: Pain) Rx Instructions: apply to single knee, ankle, foot; for foot includes sole/toes/top of foot ipratropium bromide 21 mcg (0.03 %) spray,non-aerosol 2 - 4 spray intranasal QID PRN (Reason: runny nose and post nasal drip) Rx Instructions: administer into each nostril ferrous sulfate [FeroSul] 325 mg (65 mg iron) tablet 325 mg PO DAILY magnesium citrate 100 mg tablet 400 mg PO DAILY midodrine 5 mg tablet 5 mg PO TID Rx Instructions: do not give last dose of day after 6PM or within 4 hrs of bedtime ondansetron HCl 4 mg tablet 4 mg PO Q8H PRN (Reason: Nausea) polyethylene glycol 3350 [Miralax] 17 gram/dose powder 17 g PO DAILY PRN (Reason: Constipation) Restasis MultiDose 0.05 % drops 1 drp ophthalmic (eye) Q12H PRN (Reason: Dry Eyes) Morton Saline 0.65 % aerosol,spray 2 spray intranasal QID PRN (Reason: nasal dryness or congestion) cholecalciferol (vitamin D3) 25 mcg (1,000 unit) capsule 50 mcg PO DAILY acetaminophen [Tylenol] 325 mg capsule 325 mg PO Q6H PRN (Reason: Pain) (DME) lancets Misc MISCELLANEOUS Rx Instructions: Use as directed up to 4 times/day omeprazole 20 mg Capsule,Delayed Release(Dr/Ec) 20 mg PO QAM ciprofloxacin HCl 500 mg Tablet 500 mg PO QAM tamsulosin 0.4 mg Capsule 0.4 mg PO QPM levothyroxine 50 mcg Tablet 50 mcg PO DAILYBB furosemide 20 mg Tablet 20 mg PO QAM loratadine 10 mg Tablet 10 mg PO DAILY PRN (Reason: Allergy Symptoms) spironolactone 50 mg Tablet 50 mg PO QAM metformin 500 mg tablet 500 mg PO BIDM sertraline 25 mg tablet 25 mg PO HS finasteride 5 mg tablet 5 mg PO QAM Centrum Silver Tablet 1 tab PO DAILY Xifaxan 550 mg tablet 550 mg PO BID Qty: 60 0RF Changed lactulose 20 gram/30 mL solution 30 ml PO TID Qty: 1500 0RF Discharge Orders: Discharge Order (Routine); Ordered 11/09/22 Ordered By: July Beck Admission Data Admit Date/Time: 11/07/22 21:48 Attending Provider: July Beck Admit Provider: Nader Torres Primary Care Provider: Renard Das Other Providers: Nader Torres ; Kiran Pierre ; Noble Cali ; Estella Apodaca ; Jacey Fields ; Lisa Anderson ; Liudmila Ny ; Moises Heaton ; Shree Alvarado ; Arnaldo Scott ; Yazmin Stevens ; Jamaal Kendrick ; Zita Sargent ; Gwendolyn Erickson ; Lizzette Mitchell ; Xiomy Pyle ; Alvarez Parker ; Walker Zhao ; Wu Rodas ; Marisa Weaver ; Lynn Cosby Jr
[2022-11-09 16:02] VITALS: PULSE 52
[2022-11-10] MEDS ORDERED: MAGNESIUM OXIDE 400 MG TAB PO SCH (09:00)
== END 2022-11-09 16:51 | disposition home health service (06) | DRG 441 ==
LOC: ED 17:17 → EDINP 21:48 → 2N 11-08 00:02